=== PATIENT | female | born 1950 ===

== ENCOUNTER 2020-01-04 23:12 | Observation (INO) | payer BC, OTHER ==
[~2020-01-04] VITALS: Ht 160 cm; Wt 72.6 kg
--- OUTSIDE RECORDS SUMMARY | ~2020-01-04 | XMS | Encounter Summary ---
Demographics + + + | Address | [address] | | | [place] [address] | + + + | Home Phone | | + + + | Preferred Language | Unknown | + + + | Marital Status | | + + + | Shinto Affiliation | 1027 | + + + | Race | Unknown | + + + | Ethnic Group | Unknown | + + + Author + + + | Author | [facility] | | | and [place] | + + + | Organization | [facility] | | | and [place] | + + + | Address | Unknown | + + + | Phone | Unavailable | + + + Support + + + + + | Name | Relationship | Address | Phone | + + + + + | Cristofer Vogt | ECON | [address] | | | | | [place], | | | | | [place] [address] | | + + + + + | Ryan Vogt | ECON | Unknown | | + + + + + | Rob Vogt | ECON | Unknown | | + + + + + Care Team Providers + +------+ + | Care Two Needle Machine Operator Name | Role | Phone | + +------+ + | Julisa Samaniego MD | PCP | | + +------+ + Reason for Visit +---------+ + | Reason | Comments | +---------+ + | Fatigue | | +---------+ + Encounter Details +--------+ + + + + | Date | Type | Department | Care Team | Description | +--------+ + + + + | 01/03/ | Emergency | [facility] | Farhat Tripp MD | Adrenal | | 2020 | | [facility] EM[facility] | [address] | insufficiency (HCC) | | | | CENTER [address] | [place], [place] | (Primary Dx); Fever, | | | | [place], [place] | [address] | unspecified fever | | | | [address] | | cause | | | | [phone] | | | +--------+ + + + + Social History + +-------+ +--------+------+ | Tobacco Use | Types | Packs/Day | Years | Date | | | | | Used | | + +-------+ +--------+------+ | Never Smoker | | | | | + +-------+ +--------+------+ + +---+---+---+ | Smokeless Tobacco: | | | | | Never Used | | | | + +---+---+---+ + + +---------+ + | Alcohol Use | Drinks/Week | oz/Week | Comments | + + +---------+ + | No | | | | + + +---------+ + + + + | Sex Assigned at | Date Recorded | | | | + + + | Not on file | | + + + documented as of this encounter Last Filed Vital Signs + + + + + | Vital Sign | Reading | Time Taken | Comments | + + + + + | Blood Pressure | 125/65 | 01/04/2020 10:15 PM | | | | | PDT | | + + + + + | Pulse | 86 | 01/04/2020 10:15 PM | | | | | PDT | | + + + + + | Temperature | 36.9 C (98.4 F) | 01/04/2020 9:35 PM | | | | | PDT | | + + + + + | Respiratory Rate | 20 | 01/04/2020 10:15 PM | | | | | PDT | | + + + + + | Oxygen Saturation | 93% | 01/04/2020 10:15 PM | | | | | PDT | | + + + + + | Inhaled Oxygen | - | - | | | Concentration | | | | + + + + + | Weight | 70.3 kg (155 lb) | 01/04/2020 5:20 PM | | | | | PDT | | + + + + + | Height | 160 cm (5' 3") | 01/04/2020 5:20 PM | | | | | PDT | | + + + + + | Body Mass Index | 27.46 | 01/04/2020 5:20 PM | | | | | PDT | | + + + + + documented in this encounter Medications at Time of Discharge + + + +---------+ + + | Medication | Sig | Dispensed | Refills | Start | End Date | | | | | | Date | | + + + +---------+ + + | amLODIPine | Take 1 tablet by | 90 | 3 | 07/25/19 | | | (NORVASC) 2.5 mg | mouth Daily. | tablet | | 20 | | | tablet | | | | | | + + + +---------+ + + | aspirin (ASPIRIN) | Take 81 mg by mouth | | 0 | | | | 81 MG EC tablet | Daily. | | | | | + + + +---------+ + + | atorvaSTATin | Take 1 tablet by | 90 | 3 | 07/25/19 | | | (LIPITOR) 20 mg | mouth nightly. | tablet | | 20 | | | tablet | | | | | | + + + +---------+ + + | cholecalciferol | Take 1 tablet by | | 0 | 05/30/20 | | | (CHOLECALCIFEROL) | mouth Daily. | | | 18 | | | 1000 units TABS | | | | | | + + + +---------+ + + | levothyroxine | Take 1 tablet by | 90 | 4 | 12/05/19 | | | (SYNTHROID) 100 mcg | mouth every morning | tablet | | 20 | | | tabletIndications: | (before breakfast). | | | | | | Secondary | | | | | | | hypothyroidism | | | | | | + + + +---------+ + + | Multiple | Take 1 tablet by | | 0 | | | | Vitamins-Minerals | mouth Daily. | | | | | | (ONE DAILY | | | | | | | MULTIVITAMIN WOMEN) | | | | | | | TABS | | | | | | + + + +---------+ + + | potassium chloride | take 1 tablet by | 90 | 3 | 09/14/19 | | | (KLOR-CON) 10 mEq | mouth once daily | tablet | | 20 | | | CR tablet | | | | | | + + + +---------+ + + | predniSONE | One daily for total | 90 | 4 | 12/05/19 | | | (DELTASONE) 1 mg | 6 mg daily. | tablet | | 20 | | | tabletIndications: | | | | | | | Secondary adrenal | | | | | | | insufficiency (HCC) | | | | | | + + + +---------+ + + | predniSONE | take 1 tablet by | 120 | 4 | 12/05/19 | | | (DELTASONE) 5 mg | mouth daily MOST | tablet | | 20 | | | tabletIndications: | DAYS INCREASE TO 3 | | | | | | Secondary adrenal | tablets daily for 3 | | | | | | insufficiency (HCC) | days WHEN SICK. | | | | | + + + +---------+ + + | Somatropin | Inject 0.3 mg under | 5 each | 2 | 12/11/19 | | | (OMNITROPE) 5.8 MG | the skin Daily. | | | 20 | | | SOLRIndications: | | | | | | | Panhypopituitarism | | | | | | | (HCC) | | | | | | + + + +---------+ + + documented as of this encounter ED Notes Farhat Tripp MD - 01/04/2020 5:19 PM PDTFormatting of this note might be different from t laverne original. [facility] Emergency Department Encounter Note [address] [place] [id number] PCP:Julisa Samaniego MD [phone] CHIEF COMPLAINT: Chief Complaint Patient presents with Fatigue ED Room: ED02/ED02 [facility] is a 69 y.o. female who presents to the Emergency Department who presents wit h fatigue. She also presents with a fever. Patient reports that she presents similarly whe n she was in adrenal crisis before. At that time she had a fever of 104 was tachycardic and hypotensive. Patient reports that she missed her morning dose of steroids. She is on pred nisone. She denies any chest pain or shortness of breath. No diarrhea constipation. No ra shes. No sore throat. No sick contacts. PAST MEDICAL & SURGICAL HISTORY Past Medical History: Diagnosis Date Adrenal insufficiency (HCC) 05/16/2012 Adverse effect of anesthesia Very slow to wake up Atypical chest pain 01/26/2019 DDD (degenerative disc disease), lumbar Dupuytren's fracture Right fifth finger Dupuytren's without contractures. H/O eclampsia History of eclampsia 1971 with DIC, acute renal failure History of blood transfusion Hyperlipidemia Hyperparathyroidism (HCC) Hypothyroidism Low back pain Osteopenia Osteoporosis Panhypopituitarism (HCC) Postmenopausal Pyelocaliectasis ith a normal IVP in 1989. 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 Tinnitus Past Surgical History: Procedure Laterality Date CARDIAC CATHERIZATION Left 12/26/2018 Procedure: CV LHC; Surgeon: Benigno Deras MD; Location: [facility] CV LAB CHOLECYSTECTOMY COLONOSCOPY 03/12/2014 COLONOSCOPY; Laterality: N/A; Surgeon: Shaji Thornton MD; Location: [facility] MEDICAL PROCEDU RE UNIT CYST REMOVAL Left 1969 ENDOMETRIAL BIOPSY 2006 Benign KNEE ARTHROSCOPY Right 06/02/2019 Procedure: RIGHT KNEE ARTHROSCOPY AND DEBRIDEMENT, partial lateral meniscectomy, partial m edial meniscectomy, medial femoral chondroplasty, and patellar chondroplasty; Surgeon: Vj Watkins MD; Location: [facility] MAIN OR Skull Biopsy 09/28/2011 (Benign) TUBAL LIGATION Bilateral CURRENT MEDICATIONS DIRECTOR OF STUDENT FINANCIAL AID Home Medications Medication Sig amLODIPine (NORVASC) 2.5 mg tablet Take 1 tablet by mouth Daily. aspirin (ASPIRIN) 81 MG EC tablet Take 81 mg by mouth Daily. atorvaSTATin (LIPITOR) 20 mg tablet Take 1 tablet by mouth nightly. cholecalciferol (CHOLECALCIFEROL) 1000 units TABS Take 1 tablet by mouth Daily. levothyroxine (SYNTHROID) 100 mcg tablet Take 1 tablet by mouth every morning (before b reakfast). Multiple Vitamins-Minerals (ONE DAILY MULTIVITAMIN WOMEN) TABS Take 1 tablet by mouth D aily. potassium chloride (KLOR-CON) 10 mEq CR tablet take 1 tablet by mouth once daily predniSONE (DELTASONE) 1 mg tablet One daily for total 6 mg daily. predniSONE (DELTASONE) 5 mg tablet take 1 tablet by mouth daily MOST DAYS INCREASE TO 3 tablets daily for 3 days WHEN SICK. Somatropin (OMNITROPE) 5.8 MG SOLR Inject 0.3 mg under the skin Daily. ALLERGIES Allergies Allergen Reactions Succinylcholine Chloride Other (See Comments) Was told by previous anesthesiologist that she has pseudocholinesterase deficiency and no t to use it again. Does not recall having a dibucaine test. Does not think she was intubated /sedated for a prolonged period after her procedure. FAMILY AND SOCIAL HISTORY Family History Problem Relation Age of Onset High blood pressure Mother 84 of Aortic dissection Other (see comment) Father 74 of hemorrgagic CVA Stroke Father Arthritis Father Lung cancer Maternal Grandfather Abdominal aortic aneurysm Brother Lung cancer Sister Breast cancer Sister Social History Socioeconomic History Marital status: Spouse name: Not on file Number of children: Not on file Years of education: Not on file Highest education level: Not on file Tobacco Use Smoking status: Never Smoker Smokeless tobacco: Never Used Substance and Sexual Activity Alcohol use: No Drug use: No Sexual activity: Never Social History Narrative in 2019 . She works at the [employer]. She doesn't exercise because she is so busy with h er grands. Enjoys doing genealogy. 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 REVIEW OF SYSTEMS As in history of present illness. A 10 system review was otherwise negative. PHYSICAL EXAM VITAL SIGNS: (first vital signs):Temp: (!) 38.6 C (101.4 F) Pulse: 108 Resp: 16 SpO2: 9 5 % BP: 173/75 Body mass index is 27.46 kg/m. Constitutional: female patient, pleasant female no acute distress HEENT: Atraumatic, PERRL, Oropharynx benign. Neck: Supple with full range of motion. Respiratory: Good air movement bilaterally. No wheezes, No, rales. Cardiovascular: Normal S1 S2 Abdomen: Left, nontender, nondistended, no CVA tenderness Extremities: Nontender. Skin: Warm, Dry, No rashes Neurologic: Alert & oriented. No focal deficits., Speech normal, gait not tested Psychiatric: Normal mood, affect and judgement. EKG 12-lead EKG shows LABS Results for orders placed or performed during the hospital encounter of 01/04/20 Coronavirus (COVID-19) NAAT Specimen: Nasopharynx; Tissue Result Value Ref Range SARS-CoV-2, NAAT (COVID-19) Not Detected Not Detected CBC with Differential Result Value Ref Range White Blood Cells 9.8 4.0 - 11.0 K/uL Red Blood Cells 4.66 3.70 - 5.20 M/uL Hemoglobin 14.0 11.5 - 16.0 g/dL Hematocrit 40.5 34.0 - 47.0 % MCV 86.9 83.0 - 101.0 fL MCH 30.0 28.0 - 35.0 pg MCHC 34.6 32.0 - 36.0 g/dL RDW-CV 13.0 <15.0 % RDW-SD 41.0 35.1 - 46.3 fL Platelet Count 244 140 - 440 K/uL MPV 10.1 6.5 - 12.4 fL % Neutrophils 59.5 45.0 - 82.0 % % Lymphocytes 27.4 20.0 - 45.0 % % Monocytes 11.7 4.0 - 12.0 % % Eosinophils 0.9 0.0 - 5.0 % % Basophils 0.4 0.0 - 1.0 % % Immature Granulocytes 0.1 0.0 - 0.4 % Absolute Neutrophils 5.82 1.80 - 8.50 K/uL Absolute Lymphocytes 2.68 0.60 - 3.20 K/uL Absolute Monocytes 1.15 (H) 0.00 - 1.00 K/uL Absolute Eosinophils 0.09 0.00 - 0.40 K/uL Absolute Basophils 0.04 0.00 - 0.10 K/uL Absolute Immature Granulocytes 0.01 0.00 - 0.03 K/uL % nRBC 0 0 - 2 per 100 WBCs Absolute nRBC 0.00 0.00 - 0.01 K/uL Comprehensive Metabolic Panel Result Value Ref Range Na 138 136 - 145 mmol/L K 3.4 3.4 - 5.1 mmol/L Cl 104 98 - 107 mmol/L CO2 24 20 - 31 mmol/L Anion Gap 10 3 - 16 mmol/L Glucose 93 60 - 106 mg/dL BUN 15 9 - 23 mg/dL Creatinine 1.08 (H) 0.55 - 1.02 mg/dL eGFR, non- 50 (L) >=60 mL/min/1.73m2 eGFR, >60 >=60 mL/min/1.73m2 Calcium 9.3 8.7 - 10.4 mg/dL Albumin 3.8 3.2 - 4.8 g/dL Bilirubin Total 0.7 0.3 - 1.2 mg/dL Total Protein 6.1 5.7 - 8.2 g/dL AST 16 0 - 34 U/L ALT 17 10 - 49 U/L Alkaline Phosphatase 132 (H) 46 - 116 U/L Globulin 2.3 2.1 - 3.8 g/dL Albumin/Globulin Ratio 1.7 0.8 - 1.9 BUN/Creatinine Ratio 13.9 Urinalysis with Microscopic with Culture if Indicated Specimen: Urine, Clean Catch Result Value Ref Range Color, Urine Straw Light Yellow, Yellow, Straw Clarity, Urine Clear Clear pH, Urine 6.0 5.0 - 8.0 Specific [place], Urine 1.009 1.001 - 1.030 Protein, Urine Negative Negative Blood, Urine Negative Negative Glucose, Urine Negative Negative Ketones, Urine Negative Negative Bilirubin, Urine Negative Negative Nitrite, Urine Negative Negative Leukocyte Esterase, Urine Trace (A) Negative Urobilinogen, Urine Negative 0.2 mg/dL, 1.0 mg/dL, Negative White Blood Cells, Urine 5-10 (A) 0 - 2 /HPF Red Blood Cells, Urine 0-2 0 - 2 /HPF Squamous Epithelial Cells, Urine 0-2 0 - 2 /LPF Bacteria, Urine 1+ (A) Negative /HPF Mucus, Urine Present (A) Negative /LPF Urine Comment Urine Culture Not Indicated Troponin I Result Value Ref Range Troponin I <0.01 <0.06 ng/mL Lactic Acid Result Value Ref Range Lactate 0.8 0.5 - 2.2 mmol/L Procalcitonin Result Value Ref Range Procalcitonin <0.05 <=0.50 ng/mL Comment Extra Lavender Top Tube Result Value Ref Range Extra Lavender Top Tube Done Extra Blue Top Tube Result Value Ref Range Extra Blue Top Tube Done IMAGING STUDIES (X-Rays interpreted by ED Physician) This x-ray does not show any consolidations or evidence of pneumothorax or pneumo mediastin um ED COURSE & MEDICAL DECISION MAKING Pertinent Labs & Imaging studies were reviewed along with EMS notes and group home record s if applicable. (See chart for details) Medications and Allergy list reviewed. Nurses note and old records were reviewed The patient was seen and examined, Patient is a 69-year-old female who presents with concern for adrenal crisis. Patient was febrile and tachycardic but she was not hypotensive. Sugar was within normal limits. I did perform a sepsis work-up including blood cultures. Patient was febrile got up to 102. I d id give her 50 mg of hydrocortisone. She was received acetaminophen as well. Her symptoms did improve. She continued to feel weak. Given that she is immunocompromise and had a high fever that we best to admit patient. Given lack of bed availability here we contacted [facility] where she was accepted by Dr. Barry. Patient will be transferred there. No acute latrice nges here in the emergency department. Last Set of Vital Signs: Temp: 36.9 C (98.4 F) Pulse: 86 Resp: 20 SpO2: 93 % BP: 125/65 FINAL IMPRESSION ICD-10-CM ICD-9-CM 1. Adrenal insufficiency (HCC) E27.40 255.41 2. Fever, unspecified fever cause R50.9 780.60 Farhat Tripp MD 01/04/203 urner, Naomi Marrero RN - 01/04/2020 5:19 PM PDTPt reports extreme fatigue today. Has no other symptoms. Pt sts he r pituitary doesnt work and when she gets dehydrated this happens to her. Electronically sig lesley by Naomi Cortez, RN at 01/04/2020 5:20 PM PDTdocumented in this encounter Plan of Treatment +--------+---------+ + + + | Date | Type | Specialty | Care Team | Description | +--------+---------+ + + + | 04/29/ | Office | Internal Medicine | Julisa Samaniego MD | | | 2019 | Visit | | [facility] | | | | | | [place] | | | | | | [address] | | | | | | | | +--------+---------+ + + + | 07/25/ | Office | Cardiology | Renetta, | | | 2020 | Visit | | [facility] [address] | | | | | | [place] | | | | | | [place] [address] | | | | | | [phone] | | | | | | | | +--------+---------+ + + + | 09/03/ | Office | Endocrinology | Cheryl Zee MD | | | 2020 | Visit | | [address] | | | | | | [address] [place] | | | | | | [id number] | | | | | | | | +--------+---------+ + + + + + +--------+ + + | Name | Type | Priori | Associated Diagnoses | Date/Time | | | | ty | | | + + +--------+ + + | ED INFORMATION | DAYO | Routin | | 01/04/2020 5:16 PM | | EXCHANGE | | e | | PDT | + + +--------+ + + | Culture, Blood | Microbiolog | STAT | | 01/04/2020 6:04 PM | | | y | | | PDT | + + +--------+ + + | Culture, Blood | Microbiolog | STAT | | 01/04/2020 5:56 PM | | | y | | | PDT | + + +--------+ + + + + +--------+ + + | Name | Type | Priori | Associated Diagnoses | Order Schedule | | | | ty | | | + + +--------+ + + | Culture, Blood | Microbiolog | STAT | | One Time for 1 | | | y | | | Occurrences starting | | | | | | 01/04/2020 until | | | | | | 01/04/2020 | + + +--------+ + + | Culture, Blood | Microbiolog | STAT | | One Time for 1 | | | y | | | Occurrences starting | | | | | | 01/04/2020 until | | | | | | 01/04/2020 | + + +--------+ + + documented as of this encounter Procedures + +--------+ + + + | Procedure Name | Priori | Date/Time | Associated Diagnosis | Comments | | | ty | | | | + +--------+ + + + | URINALYSIS WITH | STAT | 01/04/2020 | | Results for this | | MICROSCOPIC WITH | | 7:31 PM | | procedure are in the | | CULTURE IF INDICATED | | PDT | | results section. | + +--------+ + + + | XR CHEST AP PORTABLE | STAT | 01/04/2020 | | Results for this | | | | 6:50 PM | | procedure are in the | | | | PDT | | results section. | + +--------+ + + + | EXTRA LAVENDER TOP | STAT | 01/04/2020 | | Results for this | | TUBE | | 5:57 PM | | procedure are in the | | | | PDT | | results section. | + +--------+ + + + | EXTRA BLUE TOP TUBE | STAT | 01/04/2020 | | Results for this | | | | 5:57 PM | | procedure are in the | | | | PDT | | results section. | + +--------+ + + + | PROCALCITONIN, SERUM | STAT | 01/04/2020 | | Results for this | | | | 5:56 PM | | procedure are in the | | | | PDT | | results section. | + +--------+ + + + | TROPONIN I | STAT | 01/04/2020 | | Results for this | | | | 5:56 PM | | procedure are in the | | | | PDT | | results section. | + +--------+ + + + | CBC WITH | STAT | 01/04/2020 | | Results for this | | DIFFERENTIAL | | 5:56 PM | | procedure are in the | | | | PDT | | results section. | + +--------+ + + + | COMPREHENSIVE | STAT | 01/04/2020 | | Results for this | | METABOLIC PANEL | | 5:56 PM | | procedure are in the | | | | PDT | | results section. | + +--------+ + + + | LACTIC ACID | STAT | 01/04/2020 | | Results for this | | | | 5:55 PM | | procedure are in the | | | | PDT | | results section. | + +--------+ + + + | CORONAVIRUS | Routin | 01/04/2020 | | Results for this | | (COVID-19) NAAT | e | 5:51 PM | | procedure are in the | | | | PDT | | results section. | + +--------+ + + + | ED INFORMATION | Routin | 01/04/2020 | | | | EXCHANGE | e | 5:16 PM | | | | | | PDT | | | + +--------+ + + + +---+--------+ | | | | | Proced | | | ure | | | Note - | | | Vishnu, | | | Lab In | | | | | | Hlseve | | | n - | | | 01/03/ | | | 2019 | | | 5:17 | | | PM PDT | | | | | | Format | | | ting | | | of | | | this | | | note | | | might | | | be | | | differ | | | ent | | | from | | | the | | | origin | | | al.COL | | | LECTIV | | | E?NOTI | | | FICATI | | | ON?/ | | | | | | 0 | | | 17:15? | | | NIELSO | | | N, | | | MONA | | | L?MRN: | | | | | | [id number] | | | [id number] | | | riteri | | | a Met | | | | | | Histor | | | y of | | | Sepsis | | | | | | DxSecu | | | rity | | | and | | | Safety | | | No | | | recent | | | | | | Securi | | | ty | | | Events | | | | | | curren | | | tly on | | | | | | fileED | | | Care | | | Guidel | | | inesTh | | | ere | | | are | | | curren | | | tly no | | | ED | | | Care | | | Guidel | | | frieda | | | for | | | this | | | patien | | | t. | | | Please | | | check | | | your | | | facili | | | ty's | | | medica | | | l | | | record | | | s | | | system | | | .Flags | | | | | | Histor | | | y of | | | Sepsis | | | - | | | Patien | | | t has | | | receiv | | | ed a | | | diagno | | | sis of | | | | | | Sepsis | | | from | | | an | | | acute | | | or | | | post-a | | | cute | | | settin | | | g. | | | Apply | | | approp | | | riate | | | clinic | | | al | | | planni | | | ng | | | practi | | | kevin; | | | to | | | learn | | | more | | | visit | | | cdc.go | | | v/seps | | | is/cli | | | nicalt | | | ools / | | | | | | Attrib | | | uted | | | By: | | | Collec | | | tive | | | Medica | | | l / | | | Attrib | | | uted | | | On: | | | 01/02/ | | | 2020 | | | Prescr | | | iption | | | Drug | | | Report | | | (12 | | | Mo.)Rx | | | | | | Detail | | | sFill | | | Date | | | Drug | | | Descri | | | ption | | | Qty. | | | Prescr | | | iber | | | CS MED | | | | | | 2019-1 | | | 2-27 | | | HYDROC | | | ODONE- | | | ACETAM | | | IN | | | 7.5-32 | | | 5 30 | | | LEAH | | | GABRIEL | | | 2 0 | | | 2019-1 | | | 0-29 | | | LORAZE | | | CHACE 2 | | | MG | | | TABLET | | | 1 | | | MANUEL | | | D | | | HENDER | | | SON 4 | | | 0 | | | 2019-0 | | | 9-16 | | | LORAZE | | | CHACE 1 | | | MG | | | TABLET | | | 1 | | | MIHAEL | | | A | | | COSMA | | | 4 0 Rx | | | | | | [facility] | | | yMetri | | | c | | | Count | | | CS | | | II-V | | | Rx 3 | | | CS-II | | | Rx 1 | | | Quanti | | | ty | | | Dispen | | | sed 32 | | | | | | Unique | | | | | | Prescr | | | ibers | | | 3 | | | Unique | | | | | | Pharma | | | cies 1 | | | | | | Benzos | | | 2 | | | Opioid | | | s 0 | | | Long | | | Acting | | | | | | Opioid | | | s 0 | | | E.D. | | | Visit | | | Count | | | (12 | | | mo.)Fa | | | cility | | | | | | Visits | | | Low | | | Acuity | | | | | | Provid | | | ence | | | [facility] | | [facility] | [facility] | | | l | | | Center | | | 2 0 | | | Total | | | 2 0 | | | Note: | | | Visits | | | | | | indica | | | te | | | total | | | known | | | visits | | | . | | | Medica | | | id Low | | | | | | Acuity | | | Dx | | | are | | | the | | | number | | | of | | | primar | | | y | | | diagno | | | ses on | | | the | | | Medica | | | id's | | | Low | | | Acuity | | | dx | | | list. | | | | | | Recent | | | | | | Emerge | | | ncy | | | Depart | | | ment | | | Visit | | | [facility] | | | yDate | | | Facili | | | ty | | | City | | | State | | | Type | | | Diagno | | | ses or | | | Chief | | | | | | Compla | | | int | | | Travis | | | 30, | | | 2020 | | | Provid | | | ence | | | [facility] | | [place] | | | [place] | | | Emerge | | | ncy | | | | | | Adrena | | | l | | | Crisis | | | Aug | | | 5, | | | 2019 | | | Provid | | | ence | | | [facility] | [facility] | | [place] | | | [place] | | | Emerge | | | ncy | | | vison | | | | | | change | | | s due | | | to | | | meds | | | | | | Medica | | | l | | | Proble | | | m | | | (Minor | | | ) | | | Advers | | | e | | | effect | | | of | | | unspec | | | ified | | | drugs, | | | | | | medica | | | ments | | | and | | | biolog | | | ic | | | Recent | | | | | | Inpati | | | ent | | | Visit | | | [facility] | | | yNo | | | record | | | ed | | | inpati | | | ent | | | visits | | | . Care | | | | | | TeamPr | | | ovider | | | | | | Specia | | | lty | | | Phone | | | Fax | | | Servic | | | e | | | Dates | | | GARDNE | | | R, JULISA | | | , MD | | | [employer] | | | al | | | Medici | | | ne | | | (509) | | | [phone] | | | [phone] | | | [phone] | | | [phone] | | | [phone] | | | Curren | | | t | | | Collec | | | tive | | | Portal | | | This | | | patien | | | t has | | | regist | | | ered | | | at the | | | | | | Provid | | | ence | | | [facility] | | [facility] | [facility] | | | l | | | Center | | | | | | Emerge | | | ncy | | | Depart | | | ment | | | For | | | more | | | inform | | | ation | | | visit: | | | | | | https: | | | //prov | | | .colle | | | ctivem | | | edical | | | .com/n | | | otify/ | | | [id number] | | | [phone] | | | [email or web address] | | | [phone] | | | [id number] | | | [id number] | | | | | | PLEASE | | | NOTE: | | | 1. | | | Any | | | care | | | recomm | | | endati | | | ons | | | and | | | other | | | clinic | | | al | | | inform | | | ation | | | are | | | provid | | | ed as | | | guidel | | | frieda | | | or for | | | | | | histor | | | ical | | | purpos | | | es | | | only, | | | and | | | provid | | | ers | | | should | | | | | | exerci | | | se | | | their | | | own | | | clinic | | | al | | | judgme | | | nt | | | when | | | provid | | | ing | | | care. | | | 2. | | | You | | | may | | | only | | | use | | | this | | | inform | | | ation | | | for | | | purpos | | | es of | | | treatm | | | ent, | | | paymen | | | t or | | | health | | | care | | | operat | | | ions | | | activi | | | ties, | | | and | | | subjec | | | t to | | | the | | | limita | | | tions | | | of | | | applic | | | able | | | Collec | | | tive | | | Polici | | | es. | | | 3. | | | You | | | should | | | | | | consul | | | t | | | direct | | | ly | | | with | | | the | | | organi | | | zation | | | that | | | provid | | | ed a | | | care | | | guidel | | | ine or | | | other | | | | | | clinic | | | al | | | histor | | | y with | | | any | | | questi | | | ons | | | about | | | additi | | | onal | | | inform | | | ation | | | or | | | accura | | | cy or | | | comple | | | teness | | | of | | | inform | | | ation | | | provid | | | ed.? | | | 2019 | | | Collec | | | tive | | | Medica | | | l | | | Techno | | | logies | | | , Inc[employer] | | | - | | | [email or web address] | | | llecti | | | vemedi | | | [email or web address] | | | m | +---+--------+ documented in this encounter Results Urinalysis with Microscopic with Culture if Indicated (01/04/2020 7:31 PM PDT) + + + + + + | Component | Value | Ref Range | Performed | Pathologist | | | | | At | Signature | + + + + + + | Color, | Straw | Light Yellow, | [facility] | | | Urine | | Yellow, Straw | [facility] | | | | | | MED[facility] | | | | | | C[facility] - | | | | | | LABORATORY | | + + + + + + | Clarity, | Clear | Clear | [facility] | | | Urine | | | [facility] | | | | | | MEDICAL | | | | | | CENTER - | | | | | | LABORATORY | | + + + + + + | pH, Urine | 6.0 | 5.0 - 8.0 | [facility] | | | | | | [facility] | | | | | | MEDICAL | | | | | | CENTER - | | | | | | LABORATORY | | + + + + + + | Specific | 1.009 | 1.001 - 1.030 | [facility] | | | [place], | | | [facility] | | | Urine | | | MEDICAL | | | | | | CENTER - | | | | | | LABORATORY | | + + + + + + | Protein, | Negative | Negative | [facility] | | | Urine | | | [facility] | | | | | | MEDICAL | | | | | | CENTER - | | | | | | LABORATORY | | + + + + + + | Blood, | Negative | Negative | [facility] | | | Urine | | | [facility] | | | | | | MEDICAL | | | | | | CENTER - | | | | | | LABORATORY | | + + + + + + | Glucose, | Negative | Negative | [facility] | | | Urine | | | [facility] | | | | | | MEDICAL | | | | | | CENTER - | | | | | | LABORATORY | | + + + + + + | Ketones, | Negative | Negative | [facility] | | | Urine | | | [facility] | | | | | | MEDICAL | | | | | | CENTER - | | | | | | LABORATORY | | + + + + + + | Bilirubin, | Negative | Negative | [facility] | | | Urine | | | [facility] | | | | | | MEDICAL | | | | | | CENTER - | | | | | | LABORATORY | | + + + + + + | Nitrite, | Negative | Negative | [facility] | | | Urine | | | [facility] | | | | | | MEDICAL | | | | | | CENTER - | | | | | | LABORATORY | | + + + + + + | Leukocyte | Trace (A) | Negative | [facility] | | | Esterase, | | | [facility] | | | Urine | | | MEDICAL | | | | | | CENTER - | | | | | | LABORATORY | | + + + + + + | Urobilinoge | Negative | 0.2 mg/dL, 1.0 | [facility] | | | n, Urine | | mg/dL, Negative | [facility] | | | | | | MEDICAL | | | | | | CENTER - | | | | | | LABORATORY | | + + + + + + | White Blood | 5-10 (A) | 0 - 2 /HPF | [facility] | | | Cells, | | | [facility] | | | Urine | | | MEDICAL | | | | | | CENTER - | | | | | | LABORATORY | | + + + + + + | Red Blood | 0-2 | 0 - 2 /HPF | [facility] | | | Cells, | | | [facility] | | | Urine | | | MEDICAL | | | | | | CENTER - | | | | | | LABORATORY | | + + + + + + | Squamous | 0-2 | 0 - 2 /LPF | [facility] | | | Epithelial | | | [facility] | | | Cells, | | | MEDICAL | | | Urine | | | CENTER - | | | | | | LABORATORY | | + + + + + + | Bacteria, | 1+ (A) | Negative /HPF | [facility] | | | Urine | | | [facility] | | | | | | MEDICAL | | | | | | CENTER - | | | | | | LABORATORY | | + + + + + + | Mucus, | Present (A) | Negative /LPF | [facility] | | | Urine | | | [facility] | | | | | | MEDICAL | | | | | | CENTER - | | | | | | LABORATORY | | + + + + + + | Urine | Urine Culture Not | | [facility] | | | Comment | Indicated | | [facility] | | | | | | MEDICAL | | | | | | CENTER - | | | | | | LABORATORY | | + + + + + + + + | Specimen | + + | Urine - Urine | | specimen obtained by | | clean catch | | procedure (specimen) | + + + + + + + | Performing | Address | City/State/Zipcode | Phone Number | | Organization | | | | + + + + + | [facility] | [address] | [place], [place] | [phone] | | [facility] | | [address] | | | - LABORATORY | | | | + + + + + XR Chest AP Portable (01/04/2020 6:50 PM PDT) + + | Specimen | + + | | + + + + + | Impressions | Performed At | + + + | 1. LOW LUNG VOLUMES WITHOUT RADIOGRAPHIC EVIDENCE OF ACTIVE | [facility] | | DISEASE IN THE CHEST. Electronically signed by Gonzalo Barragan MD | | | 01/04/2020 10:47 PM | | + + + + + + | Narrative | Performed At | + + + | SINGLE AP CHEST 01/04/2020 6:50 PM CLINICAL HISTORY: [facility] | [facility] | | COMPARISON: Radiography November 2018 and more remote imaging | | | FINDINGS: The cardiomediastinal silhouette and pulmonary vasculature | | | are unremarkable. Allowing for low lung volumes, the lungs appear | | | clear without visible pneumothorax or pleural effusion. Bones and soft | | | tissues are unremarkable. | | + + + + + | Procedure Note | + + | Vishnu, [id number] - 01/04/2020 10:50 PM PDT SINGLE AP CHEST 01/04/2020 6:50 PM | | | | CLINICAL HISTORY: [facility] | | | | COMPARISON: Radiography November 2018 and more remote imaging | | | | FINDINGS: The cardiomediastinal silhouette and pulmonary vasculature | | are unremarkable. Allowing for low lung volumes, the lungs appear | | clear without visible pneumothorax or pleural effusion. Bones and soft | | tissues are unremarkable. | | | | IMPRESSION: | | | | 1. LOW LUNG VOLUMES WITHOUT RADIOGRAPHIC EVIDENCE OF ACTIVE DISEASE | | IN THE CHEST. | | | | Electronically signed by Gonzalo Barragan MD 01/04/2020 10:47 PM | + + + +---------+ + + | Performing | Address | City/State/Zipcode | Phone Number | | Organization | | | | + +---------+ + + | [facility] | | | | + +---------+ + + Extra Blue Top Tube (01/04/2020 5:57 PM PDT) + +-------+ + + + | Component | Value | Ref Range | Performed | Pathologist | | | | | At | Signature | + +-------+ + + + | Extra Blue | Done | | [facility] | | | Top Tube | | | [facility] | | | | | | MEDICAL | | | | | | CENTER - | | | | | | LABORATORY | | + +-------+ + + + + + | Specimen | + + | Blood | + + + + + + + | Performing | Address | City/State/Zipcode | Phone Number | | Organization | | | | + + + + + | [facility] | [address] | [place], [place] | [phone] | | [facility] | | [address] | | | - LABORATORY | | | | + + + + + Extra Lavender Top Tube (01/04/2020 5:57 PM PDT) + +-------+ + + + | Component | Value | Ref Range | Performed | Pathologist | | | | | At | Signature | + +-------+ + + + | Extra | Done | | [facility] | | | Lavender | | | [facility] | | | Top Tube | | | MEDICAL | | | | | | CENTER - | | | | | | LABORATORY | | + +-------+ + + + + + | Specimen | + + | Blood | + + + + + + + | Performing | Address | City/State/Zipcode | Phone Number | | Organization | | | | + + + + + | [facility] | [address] | [place] | [phone] | | [facility] | | [address] | | | - LABORATORY | | | | + + + + + Procalcitonin (01/04/2020 5:56 PM PDT) + + + + + + | Component | Value | Ref Range | Performed | Pathologist | | | | | At | Signature | + + + + + + | Procalciton | <0.05 | <=0.50 ng/mL | [facility] | | | in | | | [facility] | | | | | | MEDICAL | | | | | | CENTER - | | | | | | LABORATORY | | + + + + + + | Comment | Comment: < 0.50 | | [facility] | | | | ng/mL:Procalcitonin | | [facility] | | | | levels below 0.50 ng/mL | | MEDICAL | | | | on the first day of | | CENTER - | | | | admission represents a | | LABORATORY | | | | low risk for progression | | | | | | to severe sepsis and/or | | | | | | septic shock, however | | | | | | these do not exclude an | | | | | | infection, because | | | | | | localized infections | | | | | | (without systemic signs) | | | | | | may also be associated | | | | | | with such low levels. | | | | | | > 2.00 | | | | | | ng/mL:Procalcitonin | | | | | | levels above 2.00 ng/mL | | | | | | on the first day of | | | | | | admission represents a | | | | | | high risk for | | | | | | progression to severe | | | | | | sepsis and/or septic | | | | | | shock. If the | | | | | | procalcitonin | | | | | | measurement is performed | | | | | | shortly after the | | | | | | systemic infection | | | | | | process has started | | | | | | (usually less than 6 | | | | | | hours), these values may | | | | | | still be low. As | | | | | | various non-infectious | | | | | | conditions are known to | | | | | | induce procalcitonin as | | | | | | well, procalcitonin | | | | | | levels between 0.50 | | | | | | ng/mL and 2.00 ng/mL | | | | | | should be reviewed | | | | | | carefully to take into | | | | | | account the specific | | | | | | clinical background and | | | | | | condition(s) of the | | | | | | individual patient. | | | | + + + + + + + + | Specimen | + + | Blood | + + + + + + + | Performing | Address | City/State/Zipcode | Phone Number | | Organization | | | | + + + + + | [facility] | [address] | [place] | [phone] | | [facility] | | [address] | | | - LABORATORY | | | | + + + + + Troponin I (01/04/2020 5:56 PM PDT) + + + + + + | Component | Value | Ref Range | Performed | Pathologist | | | | | At | Signature | + + + + + + | Troponin I | <0.01Comment: | <0.06 ng/mL | [facility] | | | | Comment:Reference | | [facility] | | | | Ranges: 0.00-0.06 = | | MEDICAL | | | | NORMAL >0.06 = | | CENTER - | | | | SUSPICIOUS FOR | | LABORATORY | | | | MYOCARDIAL DAMAGE NOTE: | | | | | | Values greater than | | | | | | 0.78 ng/mL have been | | | | | | shown to be strongly | | | | | | associated with acute | | | | | | myocardial infarction. | | | | | | The [employer] | | | | | | Card[employer] (ACC) | | | | | | recommends a decision | | | | | | limit of 0.06 ng/mL for | | | | | | this assay. Results | | | | | | greater than 0.06 can | | | | | | reflect a pre-infarct | | | | | | acute coronary syndrome, | | | | | | but can also reflect | | | | | | myocardial necrosis or | | | | | | injury that is not due | | | | | | to coronary artery | | | | | | disease. Some of these | | | | | | causes are sepsis, | | | | | | hypocolemia, atrial | | | | | | fibrillation, heart | | | | | | failure, pulmonary | | | | | | embolism, myocarditis, | | | | | | myocardial contusion, | | | | | | and renal failure. The | | | | | | diagnosis of myocardial | | | | | | infarction should be | | | | | | based on a combination | | | | | | of the patient's | | | | | | clinical presentation | | | | | | and the clinical | | | | | | laboratory test results | | | | | | (especially serial | | | | | | troponin levels). | | | | + + + + + + + + | Specimen | + + | Blood | + + + + + + + | Performing | Address | City/State/Zipcode | Phone Number | | Organization | | | | + + + + + | [facility] | [address] | [place] | [phone] | | [facility] | | [address] | | | - LABORATORY | | | | + + + + + Comprehensive Metabolic Panel (01/04/2020 5:56 PM PDT) + + + + + + | Component | Value | Ref Range | Performed | Pathologist | | | | | At | Signature | + + + + + + | Na | 138 | 136 - 145 | [facility] | | | | | mmol/L | [facility] | | | | | | MEDICAL | | | | | | CENTER - | | | | | | LABORATORY | | + + + + + + | K | 3.4 | 3.4 - 5.1 | [facility] | | | | | mmol/L | [facility] | | | | | | MEDICAL | | | | | | CENTER - | | | | | | LABORATORY | | + + + + + + | Cl | 104 | 98 - 107 mmol/L | [facility] | | | | | | [facility] | | | | | | MEDICAL | | | | | | CENTER - | | | | | | LABORATORY | | + + + + + + | CO2 | 24 | 20 - 31 mmol/L | [facility] | | | | | | [facility] | | | | | | MEDICAL | | | | | | CENTER - | | | | | | LABORATORY | | + + + + + + | Anion Gap | 10 | 3 - 16 mmol/L | [facility] | | | | | | [facility] | | | | | | MEDICAL | | | | | | CENTER - | | | | | | LABORATORY | | + + + + + + | Glucose | 93 | 60 - 106 mg/dL | [facility] | | | | | | [facility] | | | | | | MEDICAL | | | | | | CENTER - | | | | | | LABORATORY | | + + + + + + | BUN | 15 | 9 - 23 mg/dL | [facility] | | | | | | [facility] | | | | | | MEDICAL | | | | | | CENTER - | | | | | | LABORATORY | | + + + + + + | Creatinine | 1.08 (H) | 0.55 - 1.02 | [facility] | | | | | mg/dL | [facility] | | | | | | MEDICAL | | | | | | CENTER - | | | | | | LABORATORY | | + + + + + + | eGFR, | 50 (L)Comment: | >=60 | [facility] | | | non- | GLOMERULAR FILTRATION | mL/min/1.73m2 | [facility] | | | [place] | RATE,ESTIMATED | | MEDICAL | | | | mL/min/1.60o7Zbsh than | | CENTER - | | | | 60 Chronic kidney | | LABORATORY | | | | disease,if found over a | | | | | | 3-month period.Less than | | | | | | 15 Kidney failure | | | | + + + + + + | eGFR, | >60Comment: GLOMERULAR | >=60 | [facility] | | | | FILTRATION | mL/min/1.73m2 | [facility] | | | [place] | RATE,ESTIMATED | | MEDICAL | | | | mL/min/1.12i7Tjvt than | | CENTER - | | | | 60 Chronic kidney | | LABORATORY | | | | disease,if found over a | | | | | | 3-month period.Less than | | | | | | 15 Kidney failure | | | | + + + + + + | Calcium | 9.3 | 8.7 - 10.4 | [facility] | | | | | mg/dL | [facility] | | | | | | MEDICAL | | | | | | CENTER - | | | | | | LABORATORY | | + + + + + + | Albumin | 3.8 | 3.2 - 4.8 g/dL | [facility] | | | | | | [facility] | | | | | | MEDICAL | | | | | | CENTER - | | | | | | LABORATORY | | + + + + + + | Bilirubin | 0.7 | 0.3 - 1.2 mg/dL | [facility] | | | Total | | | [facility] | | | | | | MEDICAL | | | | | | CENTER - | | | | | | LABORATORY | | + + + + + + | Total | 6.1 | 5.7 - 8.2 g/dL | [facility] | | | Protein | | | [facility] | | | | | | MEDICAL | | | | | | CENTER - | | | | | | LABORATORY | | + + + + + + | AST | 16 | 0 - 34 U/L | [facility] | | | | | | [facility] | | | | | | MEDICAL | | | | | | CENTER - | | | | | | LABORATORY | | + + + + + + | ALT | 17 | 10 - 49 U/L | [facility] | | | | | | [facility] | | | | | | MEDICAL | | | | | | CENTER - | | | | | | LABORATORY | | + + + + + + | Alkaline | 132 (H) | 46 - 116 U/L | [facility] | | | Phosphatase | | | [facility] | | | | | | MEDICAL | | | | | | CENTER - | | | | | | LABORATORY | | + + + + + + | Globulin | 2.3 | 2.1 - 3.8 g/dL | [facility] | | | | | | [facility] | | | | | | MEDICAL | | | | | | CENTER - | | | | | | LABORATORY | | + + + + + + | Albumin/Rachel | 1.7 | 0.8 - 1.9 | [facility] | | | bulin Ratio | | | [facility] | | | | | | MEDICAL | | | | | | CENTER - | | | | | | LABORATORY | | + + + + + + | BUN/Creatin | 13.9 | | [facility] | | | ine Ratio | | | [facility] | | | | | | MEDICAL | | | | | | CENTER - | | | | | | LABORATORY | | + + + + + + + + | Specimen | + + | Blood | + + + + + + + | Performing | Address | City/State/Zipcode | Phone Number | | Organization | | | | + + + + + | [facility] | [address] | [place] | [phone] | | [facility] | | [address] | | | - LABORATORY | | | | + + + + + CBC with Differential (01/04/2020 5:56 PM PDT) + + + + + + | Component | Value | Ref Range | Performed | Pathologist | | | | | At | Signature | + + + + + + | White Blood | 9.8 | 4.0 - 11.0 K/uL | [facility] | | | Cells | | | [facility] | | | | | | MEDICAL | | | | | | CENTER - | | | | | | LABORATORY | | + + + + + + | Red Blood | 4.66 | 3.70 - 5.20 | [facility] | | | Cells | | M/uL | [facility] | | | | | | MEDICAL | | | | | | CENTER - | | | | | | LABORATORY | | + + + + + + | Hemoglobin | 14.0 | 11.5 - 16.0 | [facility] | | | | | g/dL | [facility] | | | | | | MEDICAL | | | | | | CENTER - | | | | | | LABORATORY | | + + + + + + | Hematocrit | 40.5 | 34.0 - 47.0 % | [facility] | | | | | | [facility] | | | | | | MEDICAL | | | | | | CENTER - | | | | | | LABORATORY | | + + + + + + | MCV | 86.9 | 83.0 - 101.0 fL | [facility] | | | | | | [facility] | | | | | | MEDICAL | | | | | | CENTER - | | | | | | LABORATORY | | + + + + + + | MCH | 30.0 | 28.0 - 35.0 pg | [facility] | | | | | | [facility] | | | | | | MEDICAL | | | | | | CENTER - | | | | | | LABORATORY | | + + + + + + | MCHC | 34.6 | 32.0 - 36.0 | [facility] | | | | | g/dL | [facility] | | | | | | MEDICAL | | | | | | CENTER - | | | | | | LABORATORY | | + + + + + + | RDW-CV | 13.0 | <15.0 % | [facility] | | | | | | [facility] | | | | | | MEDICAL | | | | | | CENTER - | | | | | | LABORATORY | | + + + + + + | RDW-SD | 41.0 | 35.1 - 46.3 fL | [facility] | | | | | | [facility] | | | | | | MEDICAL | | | | | | CENTER - | | | | | | LABORATORY | | + + + + + + | Platelet | 244 | 140 - 440 K/uL | [facility] | | | Count | | | [facility] | | | | | | MEDICAL | | | | | | CENTER - | | | | | | LABORATORY | | + + + + + + | MPV | 10.1 | 6.5 - 12.4 fL | [facility] | | | | | | [facility] | | | | | | MEDICAL | | | | | | CENTER - | | | | | | LABORATORY | | + + + + + + | % | 59.5 | 45.0 - 82.0 % | [facility] | | | Neutrophils | | | [facility] | | | | | | MEDICAL | | | | | | CENTER - | | | | | | LABORATORY | | + + + + + + | % | 27.4 | 20.0 - 45.0 % | [facility] | | | Lymphocytes | | | [facility] | | | | | | MEDICAL | | | | | | CENTER - | | | | | | LABORATORY | | + + + + + + | % Monocytes | 11.7 | 4.0 - 12.0 % | [facility] | | | | | | [facility] | | | | | | MEDICAL | | | | | | CENTER - | | | | | | LABORATORY | | + + + + + + | % | 0.9 | 0.0 - 5.0 % | [facility] | | | Eosinophils | | | [facility] | | | | | | MEDICAL | | | | | | CENTER - | | | | | | LABORATORY | | + + + + + + | % Basophils | 0.4 | 0.0 - 1.0 % | [facility] | | | | | | [facility] | | | | | | MEDICAL | | | | | | CENTER - | | | | | | LABORATORY | | + + + + + + | % Immature | 0.1 | 0.0 - 0.4 % | [facility] | | | Granulocyte | | | [facility] | | | s | | | MEDICAL | | | | | | CENTER - | | | | | | LABORATORY | | + + + + + + | Absolute | 5.82 | 1.80 - 8.50 | [facility] | | | Neutrophils | | K/uL | [facility] | | | | | | MEDICAL | | | | | | CENTER - | | | | | | LABORATORY | | + + + + + + | Absolute | 2.68 | 0.60 - 3.20 | [facility] | | | Lymphocytes | | K/uL | [facility] | | | | | | MEDICAL | | | | | | CENTER - | | | | | | LABORATORY | | + + + + + + | Absolute | 1.15 (H) | 0.00 - 1.00 | [facility] | | | Monocytes | | K/uL | [facility] | | | | | | MEDICAL | | | | | | CENTER - | | | | | | LABORATORY | | + + + + + + | Absolute | 0.09 | 0.00 - 0.40 | [facility] | | | Eosinophils | | K/uL | [facility] | | | | | | MEDICAL | | | | | | CENTER - | | | | | | LABORATORY | | + + + + + + | Absolute | 0.04 | 0.00 - 0.10 | [facility] | | | Basophils | | K/uL | [facility] | | | | | | MEDICAL | | | | | | CENTER - | | | | | | LABORATORY | | + + + + + + | Absolute | 0.01 | 0.00 - 0.03 | [facility] | | | Immature | | K/uL | [facility] | | | Granulocyte | | | MEDICAL | | | s | | | CENTER - | | | | | | LABORATORY | | + + + + + + | % nRBC | 0 | 0 - 2 per 100 | [facility] | | | | | WBCs | [facility] | | | | | | MEDICAL | | | | | | CENTER - | | | | | | LABORATORY | | + + + + + + | Absolute | 0.00 | 0.00 - 0.01 | [facility] | | | nRBC | | K/uL | [facility] | | | | | | MEDICAL | | | | | | CENTER - | | | | | | LABORATORY | | + + + + + + + + | Specimen | + + | Blood | + + + + + + + | Performing | Address | City/State/Zipcode | Phone Number | | Organization | | | | + + + + + | [facility] | [address] | [place] | [phone] | | [facility] | | [address] | | | - LABORATORY | | | | + + + + + Lactic Acid (01/04/2020 5:55 PM PDT) + +-------+ + + + | Component | Value | Ref Range | Performed | Pathologist | | | | | At | Signature | + +-------+ + + + | Lactate | 0.8 | 0.5 - 2.2 | [facility] | | | | | mmol/L | [facility] | | | | | | MEDICAL | | | | | | CENTER - | | | | | | LABORATORY | | + +-------+ + + + + + | Specimen | + + | Blood | + + + + + + + | Performing | Address | City/State/Zipcode | Phone Number | | Organization | | | | + + + + + | [facility] | [address] | [place] | [phone] | | [facility] | | [address] | | | - LABORATORY | | | | + + + + + Coronavirus (COVID-19) [facility] (01/04/2020 5:51 PM PDT) + + + + + + | Component | Value | Ref Range | Performed | Pathologist | | | | | At | Signature | + + + + + + | SARS-CoV-2, | Not DetectedComment: | Not Detected | [facility] | | | [facility] | SARS-CoV-2, [facility] | | [facility] | | | (COVID-19) | (COVID-19) [facility] This | | MEDICAL | | | | assay has been cleared | | CENTER - | | | | for use under an FDA | | LABORATORY | | | | Emergency Use | | | | | | Authorization. This test | | | | | | is used for clinical | | | | | | purposes. It should not | | | | | | be regarded as | | | | | | investigational or for | | | | | | research. This | | | | | | laboratory is certified | | | | | | under the Clinical | | | | | | Laboratory Improvement | | | | | | Amendments (CLIA) as | | | | | | qualified to perform | | | | | | high complexity clinical | | | | | | laboratory testing. | | | | | | These results are not | | | | | | intended to be used as | | | | | | the sole means for | | | | | | clinical diagnosis or | | | | | | patient management | | | | | | decisions. This test | | | | | | has been validated in | | | | | | accordance with the | | | | | | FDA's Guidance Document | | | | | | "Policy for Diagnostics | | | | | | Testing in Laboratories | | | | | | Certified to Perform | | | | | | High Complexity Testing | | | | | | under CLIA prior to | | | | | | Emergency Use | | | | | | Authorization for | | | | | | Coronavirus Disease-2019 | | | | | | during the Public | | | | | | Health Emergency" issued | | | | | | on August 05, 2019. | | | | | | FDA independent review | | | | | | of this validation is | | | | | | pending. This test is | | | | | | only authorized for the | | | | | | duration of time the | | | | | | declaration that | | | | | | circumstances exist | | | | | | justifying the | | | | | | authorization of the | | | | | | emergency use of in | | | | | | vitro diagnostic tests | | | | | | for detection of | | | | | | SARS-CoV-2 virus and/or | | | | | | diagnosis of COVID-19 | | | | | | infection under section | | | | | | 564(b)(1) of the Act, 21 | | | | | | U.S.C. 360bbb-3(b)(1), | | | | | | unless the authorization | | | | | | is terminated or | | | | | | revoked sooner. | | | | + + + + + + + + | Specimen | + + | Tissue - Entire | | nasopharynx (body | | structure) | + + + + + + + | Performing | Address | City/State/Zipcode | Phone Number | | Organization | | | | + + + + + | [facility] | [address] | [place] | [phone] | | [facility] | | [address] | | | - LABORATORY | | | | + + + + + documented in this encounter Visit Diagnoses + + | Diagnosis | + + | Adrenal insufficiency (HCC) - Primary Glucocorticoid deficiency | + + | Fever, unspecified fever cause | + + documented in this encounter Administered Medications + +--------+ + +------+------+ | Medication Order | MAR | Action | Dose | Rate | Site | | | Action | Date | | | | + +--------+ + +------+------+ | acetaminophen (TYLENOL) tablet | Given | 01/04/20 | 1,000 mg | | | | 1,000 mg 1,000 mg, Oral, ONCE, | | 20 7:29 | | | | | Davida 01/04/20 at 1925, For 1 dose | | PM PDT | | | | + +--------+ + +------+------+ +---+---+ | | | +---+---+ + +---------+ +-----+-------+---+ | cefTRIAXone (ROCEPHIN) 1 g in | New Bag | 01/04/20 | 1 g | 100 | | | sodium chloride 0.9% 50 mL IVPB | | 20 9:34 | | mL/hr | | | 1 g, Intravenous, Administer over | | PM PDT | | | | | 30 Minutes, ONCE, Davida 01/04/20 at | | | | | | | 2035, For 1 dose, Activate | | | | | | | system and mix before use., | | | | | | | Indications: Pneumonia | | | | | | + +---------+ +-----+-------+---+ +---+---+ | | | +---+---+ + +-------+ +-------+---+---+ | hydrocortisone (PF) | Given | 01/04/20 | 50 mg | | | | (solu-CORTEF) injection 50 mg 50 | | 20 6:06 | | | | | mg, Intravenous, ONCE, Davida | | PM PDT | | | | | 01/04/20 at 1745, For 1 dose, Mix | | | | | | | with 2 mL sterile water to make | | | | | | | 50 mg/mL., | | | | | | + +-------+ +-------+---+---+ +---+---+ | | | +---+---+ + +---------+ +--------+-------+---+ | sodium chloride 0.9% (NS) bolus | New Bag | 01/04/20 | 1,000 | 2000 | | | 1,000 mL 1,000 mL, Intravenous, | | 20 6:06 | mLs | mL/hr | | | Administer over 30 Minutes, | | PM PDT | | | | | ONCE, Davida 01/04/20 at 1725, For 1 | | | | | | | dose | | | | | | + +---------+ +--------+-------+---+ +---+---+ | | | +---+---+ documented in this encounter Additional Health Concerns + + + + + | Infection | Onset Date | Last Indicated | Resolved Time | + + + + + | Rule out COVID-19 | 01/04/2020 | 01/04/2020 | 01/04/2020 7:37 PM | | | | | PDT | + + + + + documented as of this encounter
--- OUTSIDE RECORDS SUMMARY | ~2020-01-04 | XMS | Encounter Summary ---
Demographics + + + | Address | [address] | | | [place] [address] | + + + | Home Phone | | + + + | Preferred Language | Unknown | + + + | Marital Status | | + + + | Druze Affiliation | 1027 | + + + | Race | Unknown | + + + | Ethnic Group | Unknown | + + + Author + + + | Author | [facility] | | | and [place] | + + + | Organization | [facility] | | | [...] [place], | | | | | [place] [address] | | + + + + + | Ryan Vogt | ECON | Unknown | | + + + + + | Rob Vogt | ECON | Unknown | | + + + + + Care Team Providers + +------+ + | Care Endocrinology Teacher Name | Role | Phone | + +------+ + | Abrahan Samaniego MD | PCP | | + +------+ + Encounter Details +--------+ + + + + | Date | Type | Department | Care Team | Description | +--------+ + + + + | 03/22/ | Hospital | [facility] | Abrahan Samaniego MD | AAA family hx | | 2013 | Encounter | MED CTR ULTRASOUND | [address] [facility] | | | | | [address] [place] | [place] | | | | | [place] | [address] | | | | | [address] | | | | | | [phone] | Matias Connelly | | | | | | Jr. Technologist | | +--------+ + + + + [...] + + documented as of this encounter Medications at Time of Discharge + + + +---------+ + + | Medication | Sig | Dispensed | Refills | Start | End Date | | | | | | Date | | + + + +---------+ + + | Calcium | Take by mouth | | 0 | 02/18/20 | | | Carbonate-Vitamin D | Daily. | | | 12 | 6 | | 600-125 MG-UNIT TABS | | | | | | + + + +---------+ + + | cholecalciferol | Take 1,000 Units by | | 0 | 02/18/20 | | | (VITAMIN D-3) 1,000 | mouth Daily. | | | 12 | 8 | | units tablet | | | | | | + + + +---------+ + + | levothyroxine | Take 100 mcg by | | 0 | | | | (SYNTHROID, | mouth every morning | | | | 6 | | LEVOTHROID) 100 mcg | (before breakfast). | | | | | | tablet | | | | | | + + + +---------+ + + | predniSONE | Take 1 tablet by | 90 | 3 | 01/03/20 | | | (DELTASONE) 5 mg | mouth daily with one | tablet | | 14 | 5 | | tablet | 1 mg tab (total 6mg | | | | | | | by mouth daily ) | | | | | + + + +---------+ + + documented as of this encounter Plan of Treatment +--------+---------+ + + + | Date | Type | Specialty | Care Team | Description | +--------+---------+ + + + | 04/29/ | Office | Internal Medicine | Abrahan Samaniego MD | | | 2020 | Visit | | [address] [facility] | | | | | | [place] | | | | | | [address] | | | | | | | | +--------+---------+ + + + | 07/25/ | Office | Cardiology | Renetta, | | | 2020 | Visit | | [facility] [address] | | | | | | [address] [place] [place], | | | | | | [place] [address] | | | | | | [phone] | | | | | | | | +--------+---------+ + + + | 09/03/ | Office | Endocrinology | Cheryl Zee MD | | | 2020 | Visit | | [address] | | | | | | [address] [place] | | | | | | [phone] | | | | | | | | +--------+---------+ + + + documented as of this encounter Procedures + +--------+ + + + | Procedure Name | Priori | Date/Time | Associated Diagnosis | Comments | | | ty | | | | + +--------+ + + + | US AORTA LIMITED | Routin | 03/22/2014 | AAA family hx | Results for this | | | e | 11:32 AM | | procedure are in the | | | | PDT | | results section. | + +--------+ + + + documented in this encounter Results US Aorta Limited (03/22/2014 11:32 AM PDT) + + | Specimen | + + | | + + + + + | Narrative | Performed At | + + + | US AORTA LIMITED 03/22/2014 9:03 AM HISTORY: FAMILY HISTORY [facility] | MISCELANIOUS | | AND PATIENT REQUEST. COMPARISON: None. PROTOCOL: Kidd scale | LAB | | and Doppler images of the abdominal aorta. FINDINGS: The proximal | | | abdominal aorta measures 2.48 x 2.42 cm (AP, transverse). The mid | | | abdominal aorta is 1.30 x 1.22 cm. The distal abdominal aorta measures | | | 1.49 x 1.56 cm. The right common iliac artery is 1.26 x 1.02 cm. | | | The left common iliac artery measures 1.05 x 1.04 cm. IMPRESSION | | | - No evidence for abdominal aortic aneurysm. Dictated and Signed | | | by: Luke Lanza MD Electronically signed: 03/22/2014 10:28 AM | | + + + + + | Procedure Note | + + | Cyrus Mares Results In - 03/22/2014 11:32 AM PDT US AORTA LIMITED 03/22/2014 9:03 AM | | | | HISTORY: FAMILY HISTORY [facility] AND PATIENT REQUEST. | | | | COMPARISON: None. | | | | PROTOCOL: Kidd scale and Doppler images of the abdominal aorta. | | | | FINDINGS: | | The proximal abdominal aorta measures 2.48 x 2.42 cm (AP, transverse). The mid | | abdominal aorta is 1.30 x 1.22 cm. The distal abdominal aorta measures 1.49 x | | 1.56 cm. | | | | The right common iliac artery is 1.26 x 1.02 cm. The left common iliac artery | | measures 1.05 x 1.04 cm. | | | | IMPRESSION - | | No evidence for abdominal aortic aneurysm. | | | | Dictated and Signed by: Luke Lanza MD | | Electronically signed: 03/22/2014 10:28 AM | + + + +---------+ + + | Performing | Address | City/State/Zipcode | Phone Number | | Organization | | | | + +---------+ + + | [facility] | | | [phone] | + +---------+ + + | MISCEL[facility] LAB | | | [phone] | + +---------+ + + documented in this encounter Visit Diagnoses + + | Diagnosis | + + | AAA family hx Family history of other cardiovascular diseases | + + documented in this encounter"
--- OUTSIDE RECORDS SUMMARY | ~2020-01-04 | XMS | Encounter Summary ---
Demographics + + + | Address | [address] | | | [place] [address] | + + + | Home Phone | | + + + | Preferred Language | Unknown | + + + | Marital Status | | + + + | Congregation Affiliation | 1027 | + + + | Race | Unknown | + + + | Ethnic Group | Unknown | + + + Author + + + | Author | [facility] | | | and [place] | + + + | Organization | [facility] | | | and [place] | + + + | Address | Unknown | + + + | Phone | Unavailable | + + + Support + + + + + | Name | Relationship | Address | Phone | + + + + + | Cristofer Vogt | ECON | [address] | | | | | [place], | | | | | [place] [address] | | + + + + + | Ryan Vogt | ECON | Unknown | | + + + + + | Rob Vogt | ECON | Unknown | | + + + + + Care Team Providers + +------+ + | Care Bench Machine Operator Name | Role | Phone | + +------+ + PCP | Unavailable | + +------+ + Encounter Details +--------+ + + + + | Date | Type | Department | Care Team | Description | +--------+ + + + + | 04/16/ | Hospital | [facility] | Ifeanyi Romo, | | | 2008 | Encounter | MED CTR LABORATORY | [address] | | | | | [address] [place] | [place] | | | | | [place] | [address] | | | | | [address] | | | | | | [phone] | | | +--------+ + + + + Social History + +-------+ +--------+------+ | Tobacco Use | Types | Packs/Day | Years | Date | | | | | Used | | + +-------+ +--------+------+ | Never Assessed | | | | | + +-------+ +--------+------+ + + + | Sex Assigned at [...] | Abrahan Samaniego MD | | | 2019 | Visit | | [address] | | | | | | [place] | | | | | | [address] | | | | | | | | +--------+---------+ + + + | 07/25/ | Office | Cardiology | Renetta | | | 2020 | Visit | | [place] [facility] [address] | | | | | | [place], | | | | | | [place] [address] | | | | | | [phone] | | | | | | | | +--------+---------+ + + + | 09/03/ | Office | Endocrinology | Cheryl Zee MD | | | 2020 | Visit | | [address] | | | | | | [address] [place] | | | | | | [address] | | | | | | | | +--------+---------+ + + + documented as of this encounter Visit Diagnoses Not on filedocumented in this encounter"
--- OUTSIDE RECORDS SUMMARY | ~2020-01-04 | XMS | Encounter Summary ---
Demographics + + + | Address | [address] | | | [place] [address] | + + + | Home Phone | | + + + | Preferred Language | Unknown | + + + | Marital Status | | + + + | Restorationist Affiliation | 1027 | + + + | Race | Unknown | + + + | Ethnic Group | Unknown | + + + Author + + + | Author | [facility] | | | and [place] | [...] [place], | | | | | [place] [address] | | + + + + + | Ryan Vogt | ECON | Unknown | | + + + + + | Rob Vogt | ECON | Unknown | | + + + + + Care Team Providers + +------+ + | Care Tank Car Loader Name | Role | Phone | + +------+ + | Abrahan Samaniego MD | PCP | | + +------+ + Reason for Visit + +--------+ + | Reason | Onset | Comments | | | Date | | + +--------+ + | Medication Question | 08/13/ | | | | 2017 | | + +--------+ + Encounter Details +--------+ + + + + | Date | Type | Department | Care Team | Description | +--------+ + + + + | 08/13/ | Telephone | [facility] | Abrahan Samaniego MD | Medication Question | | 2017 | | MEDICINE [address] [place] [address] | [address] [facility] | | | | | [place], | [place] | | | | | [place] [address] | [address] | | | | | [phone] | | | +--------+ + + + [...] + + documented as of this encounter Miscellaneous Notes Telephone Encounter - Christina Wilson LPN - 08/13/2017 1:[address] Samaniego 's instructions to start Levaquin and increase prednisone to 20mg daily. Advised of ER eval if N/V, lightheaded or fainting. She will call on Wednesday with update. elephone Encounter - Abrahan Samaniego MD - 0 08/13/2017 12:35 PM PSTStart on Levaquin for sinusitis and increase the prednisone to 20 mg d aily Should go straight to the ER of N/V, lightheadedness or fainting spells. Should call or send a [employer] message on Wednesday with how she is doing. Can call on-call doctor this weekend (me) if not doing well elephone Encounter - Christina Wilson LPN - 8 11:32 AM PSTPatient states she has some type of a "bug" which started on Wednesday (fatigue, sinus congestion) - states she took 15mg prednisone on Wednesday, Wednesday and - sa id today still feeling fatigued and has congestion - asking if she should take another 15mg today or do some type of lab test. elephone Encounter - Pepper De La Cruz - 08/13/2017 8:56 AM PSTPatient called a nd stated she is having adrenal insufficiency. Took extra prednisone 5 mg on Wednesday, , and . Patient is unsure if she should continue with extra dosage? Please advise.Electronically si gned by Pepper De La Cruz at 08/13/2017 8:59 AM PSTdocumented in this encounter Plan of Treatment +--------+---------+ + + + | Date | Type | Specialty | Care Team | Description | +--------+---------+ + + + | 04/29/ | Office | Internal Medicine | Abrahan Samaniego MD | | | 2019 | Visit | | [address] [place] [address] | | | | | | [place] | | | | | | [phone] | | | | | | | | +--------+---------+ + + + | 07/25/ | Office | Cardiology | Renetta, | | | 2020 | Visit | | [facility] [address] | | | | | | [place] [place] | | | | | | [place] [address] | | | | | | [phone] | | | | | | | | +--------+---------+ + + + | 09/03/ | Office | Endocrinology | Cheryl Zee MD | | | 2020 | Visit | | [address] | | | | | | [address] [place] | | | | | | [address] | | | | | | | | +--------+---------+ + + + documented as of this encounter Visit Diagnoses Not on filedocumented in this encounter
--- OUTSIDE RECORDS SUMMARY | ~2020-01-04 | XMS | Encounter Summary ---
Demographics + + + | Address | [address] | | | [place] [address] | + + + | Home Phone | | + + + | Preferred Language | Unknown | + + + | Marital Status | | + + + | Shinto Affiliation | 1027 | + + + | Race | Unknown | + + + | Ethnic Group | Unknown | + + + Author + + + | Author | [facility] | | | and [place] | + + + | Organization | [facility] | | | and [...] [place], | | | | | [place] [address] | | + + + + + | Ryan Vogt | ECON | Unknown | | + + + + + | Rob Vogt | ECON | Unknown | | + + + + + Care Team Providers + +------+ + | Care Rubber Tire Curer Name | Role | Phone | + +------+ + | Abrahan Samaniego MD | PCP | | + +------+ + Encounter Details +--------+ + + + + | Date | Type | Department | Care Team | Description | +--------+ + + + + | 12/20/ | Hospital | [facility] | | | | 2010 | Encounter | MED CTR EMERGENCY | | | | | | CENTER [address] | | | | | | [place] | | | | | | [address] | | | | | | [phone] | | | +--------+ + + + [...] | | 2019 | Visit | | [facility] [address] | | | | | | [place] | | | | | | [address] | | | | | | | | +--------+---------+ + + + | 07/25/ | Office | Cardiology | Renetta, | | | 2020 | Visit | | [facility] [address] | | | | | | [address] | | | | | | [place] [address] | | | | | | [phone] | | | | | | | | +--------+---------+ + + + | 09/03/ | Office | Endocrinology | Cheryl Zee MD | | | 2020 | Visit | | [address] | | | | | | [address] [place] | | | | | | [address] | | | | | | | | +--------+---------+ + + + documented as of this encounter Visit Diagnoses Not on filedocumented in this encounter"
--- OUTSIDE RECORDS SUMMARY | ~2020-01-04 | XMS | Encounter Summary ---
Demographics + + + | Address | [address] | | | [place] [address] | + + + | Home Phone | | + + + | Preferred Language | Unknown | + + + | Marital Status | | + + + | Yazidi Affiliation | 1027 | + + + | Race | Unknown | + + + | Ethnic Group | Unknown | + + + Author + + + | Author | [facility] | | | and [place] | + + + | Organization | [facility] | | | and [...] [address] | | | | | [address] [place], | | | | | [place] [address] | | + + + + + | Ryan Vogt | ECON | Unknown | | + + + + + | Rob Vogt | ECON | Unknown | | + + + + + Care Team Providers + +------+ + | Care Eating Disorder Specialist Name | Role | Phone | + +------+ + | Abrahan Samaniego MD | PCP | | + +------+ + Reason for Visit +--------+ + | Reason | Comments | +--------+ + | Other | figure locking | +--------+ + Encounter Details +--------+---------+ + + + | Date | Type | Department | Care Team | Description | +--------+---------+ + + + | 06/09/ | Office | [facility] | Abrahan Samaniego MD | Bilateral hip pain | | 2013 | Visit | [address] | [address] [place] [address] | (Primary Dx); | | | | [place], | [place] | Trigger finger; | | | | [place] [address] | [address] | Other and | | | | [phone] | | unspecified | | | | | | hyperlipidemia | +--------+---------+ + + + Social History + +-------+ [...] + + + | Blood Pressure | 116/78 | 06/09/2013 11:28 AM | | | | | PST | | + + + + + | Pulse | 64 | 06/09/2013 11:28 AM | | | | | PST | | + + + + + | Temperature | - | - | | + + + + + | Respiratory Rate | - | - | | + + + + + | Oxygen Saturation | - | - | | + + + + + | Inhaled Oxygen | - | - | | | Concentration | | | | + + + + + | Weight | 67.1 kg (148 lb) | 06/09/2013 11:28 AM | | | | | PST | | + + + + + | Height | 162.6 cm (5' 4") | 06/09/2013 11:28 AM | | | | | PST | | + + + + + | Body Mass Index | 25.4 | 06/09/2013 11:28 AM | | | | | PST | | + + + + + documented in this encounter Progress Notes Abrahan Samaniego MD - 06/09/2013 12:58 PM PSTdictated Abrahan North MD - 06/09/2013 12:00 AM PST INTERNAL MEDICINE [facility] [place], [place] [address] FAX: [phone] OFFICE VISIT Mona is in clinic today for: 1. Right middle finger dysfunction: She reports that either late at night or early in the morning she will flex her right middle finger and it will become "stuck" at the PIP joint. S he is able to open it without using her other hand and there is minimal pain involved with it. She has seen a hand specialist for contracture in the right pinky finger, which was not corrected because of insurance not covering. 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 The right midd le finger issue was not occurring at the time she saw the hand specialist so she has not ad dressed that with him. 2. Bilateral hip pain: She has bilateral hip pain and does not really know if it is in the groin area or in the lateral aspect. It does, however, hurt when she lays on it at night. S he says she is unable to really determine if she is worse when she is up walking, if she go es from a sitting to standing position, etc. She just prefers to ignore pain and not pay at tention to it. She had an x-ray done some time ago that showed early degenerative changes i n the right hip. Both hips both her, but the right is worse than the left. It is not interf ering with her activities of daily living. 3. Hypercholesterolemia. She had a recent HDL of 50 and LDL of 159. She was started on stat in by her machine maintenance servicer. She felt, however, that her arthritis got worse on the statin so she discontinued it. PAST MEDICAL HISTORY, SURGICAL HISTORY, MEDICATIONS, ALLERGIES: All reviewed today. SOCIAL HISTORY: She enjoys playing the organ in her voodoo. 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 Her husb and is on dialysis. She is a nondrinker, nonsmoker lifetime. PHYSICAL EXAMINATION GENERAL: A female in no acute distress. MUSCULOSKELETAL: No trigger finger is noted at the right middle finger. She has a slight c ontracture of the right fifth finger. Both hips have nice range of motion. No tenderness ove r the trochanteric bursa. No tenderness over the iliotibial bands. ASSESSMENT AND PLAN 1. RIGHT MIDDLE FINGER TRIGGER FINGER: We talked about this being very mild and she actuall y needs to schedule an appointment to followup with her hand specialist. She is going to br ing this to his attention when she sees him. She is given reassurance that this is not jj re or life-threatening and there is treatment for it should it worsen. 2. BILATERAL HIP PAIN: Differential diagnosis includes arthritis, trochanteric bursitis, i liotibial band syndrome, pain referred from her back and other. An AP pelvis film is ordered . 3. HYPERCHOLESTEROLEMIA: Using the NCEP calculator, she has a 10-year risk of 3%. She is, however, on prednisone, which likely increases her risk of coronary disease to at least some extent. She was able to get her cholesterol down significant through diet and weight loss and she has lost over 20 pounds, and I discussed the risks, benefits and side effects of c holesterol medications and at this point she would like to continue with diet, weight loss a nd repeat her lipid panel in a year. More than 15 minutes was spent face to face with the patient, of which more than 50% was in discussion and counseling. Abrahan Samaniego MD [place]RI[place] / EDGAR JOB #: [id number] signed by Abrahan Samaniego MD at 06/11/2013 5:15 PM PSTdocument ed in this encounter Miscellaneous Notes Miscellaneous - BISHNU LOERA - 06/09/2013 12:00 AM PST documented in this encounter Plan of Treatment +--------+---------+ + + + | Date | Type | Specialty | Care Team | Description | +--------+---------+ + + + | 04/29/ | Office | Internal Medicine | Abrahan Samaniego MD | | | 2019 | Visit | | [address] | | | | | | [place] | | | | | | [address] | | | | | | | | +--------+---------+ + + + | 07/25/ | Office | Cardiology | Renetta, | | | 2020 | Visit | | [facility] [address] | | | | | | [address] [place] | | | | | | [place] [address] | | | | | | [phone] | | | | | | | | +--------+---------+ + + + | 09/03/ | Office | Endocrinology | Cheryl Zee MD | | | 2020 | Visit | | [address] [place] | | | | | | [address] [place] | | | | | | [address] | | | | | | | | +--------+---------+ + + + documented as of this encounter Results XR Pelvis 1 or 2 Vw (06/09/2013 1:42 PM PST) + + | Specimen | + + | | + + + + + | Narrative | Performed At | + + + | [facility] | [facility] | | Department [address], [place] | [facility] | | [ rep [address]] [ rep ct [facility] | | st zip] Signed | - IMAGING | | | | | Patient Name: MONA VOGT Physician: | | | : 1950 Age: 63 Sex: F Unit #: [id number] | | | Exam Date: 06/09/13 [place] [facility] [place] | | Report #: [id number] Page: | | | %(RAD)RES..mtdd.print.filter("pg") of %(RAD) | | | RES..mtdd.print.filter("tpg") | | | | | | Accession Number: [id number] | | | AP VIEW OF THE PELVIS CLINICAL HISTORY: BILATERAL HIP | | | PAIN. FINDINGS: AP view of the pelvis shows normal | | | femoral acetabular joint relationships. The joint spaces are well | | | maintained. Subchondral bone is smooth and normal. Femoral heads | | | show normal contour. Sacroiliac joints and symphysis pubis are | | | normally aligned. No other focal bony abnormality is seen. | | | Adjacent soft tissues are normal. IMPRESSION: | | | 1. NEGATIVE STUDY OF THE PELVIS. Dictated Date/Time: | | | 06/09/2013 13:42 Transcribed Date/Time: 06/09/2013 13:54 | | | Pitting Machine Operator: <<Signature on File>> | | | | | | Chan Shahid MD06/09/13 1442 <Electronically signed by | | | Chan Shahid MD> Chan Shahid MD 06/09/13 | | | 1342 Pitting Machine Operator: [employer] Corporationvazquez Uuenfcalycgpc83/03/14 2135 | | | Abrahan Samaniego MD | | + + + + + + + + | Performing | Address | City/State/Zipcode | Phone Number | | Organization | | | | + + + + + | [facility] | [address] | [place] | [phone] | | [facility] | | [address] | | | - IMAGING | | | | + + + + + documented in this encounter Visit Diagnoses + + | Diagnosis | + + | Bilateral hip pain - Primary Pain in joint, pelvic region and thigh | + + | Trigger finger Trigger finger (acquired) | + + | Other and unspecified hyperlipidemia | + + documented in this encounter
--- OUTSIDE RECORDS SUMMARY | ~2020-01-04 | XMS | Encounter Summary ---
Demographics + + + | Address | [address] | | | [place] [address] | + + + | Home Phone | | + + + | Preferred Language | Unknown | + + + | Marital Status | | + + + | Hinduism Affiliation | 1027 | + + + | Race | Unknown | + + + | Ethnic Group | Unknown | + + + Author + + + | Author | [facility] | | | and [place] | + + + | Organization | [facility] | | | [...] [address] | | | | [address], | | | | | [place] [address] | | + + + + + | Ryan Vogt | ECON | Unknown | | + + + + + | Rob Vogt | ECON | Unknown | | + + + + + Care Team Providers + +------+ + | Care Legal Recruiter Name | Role | Phone | + +------+ + | Abrahan Samaniego MD | PCP | | + +------+ + Reason for Referral (Routine) + +--------+ + + + + | Status | Reason | Specialty | Diagnoses / | Referred By | Referred To | | | | | Procedures | Contact | Contact | + +--------+ + + + + | Pending | | | Diagnoses | Kellie, | | | Review | | | Complex | Mitch | | | | | | tear of | [facility] [place] | | | | | | medial | [address] | | | | | | meniscus of | [address] [place] | | | | | | right knee | [place] | | | | | | as current | [address] | | | | | | injury, | Phone: | | | | | | initial | [phone] | | | | | | encounter | Fax: | | | | | | Procedures | [phone] | | | | | | DME: | | | | | | | Crutches | | | + +--------+ + + + + Reason for Visit Auth/Cert +--------+--------+ + + + + | Status | Reason | Specialty | Diagnoses / | Referred By | Referred To | | | | | Procedures | Contact | Contact | +--------+--------+ + + + + | | | | Diagnoses | | Roland, | | | | | Complex | | Eugene Shrestha MD | | | | | tear of | | [address] | | | | | medial | | [address] [place] | | | | | meniscus of | | [place], [place] | | | | | right knee | | [address] Phone: | | | | | as current | | [phone] | | | | | injury, | | Fax: | | | | | initial | | [phone] | | | | | encounter | | | | | | | Right knee | | | | | | | pain, | | | | | | | unspecified | | | | | | | chronicity | | | | | | | Acute pain | | | | | | | of right | | | | | | | knee | | | | | | | Procedures | | | | | | | [place] KNEE | | | | | | | SCOPE,DIAGNO | | | | | | | STIC [place] | | | | | | | KNEE | | | | | | | SCOPE,PART | | | | | | | SYNOVECT [place] | | | | | | | KNEE | | | | | | | SCOPE,SHAVE | | | | | | | ARTICULAR | | | | | | | CART [place] | | | | | | | ARTHRS KNEE | | | | | | | W/MENISCECTO | | | | | | | MY MED&LAT | | | | | | | W/SHAVING | | | | | | | [place] ARTHRS | | | | | | | KNE SURG | | | | | | | W/MENISCECTO | | | | | | | MY MED/LAT | | | | | | | W/SHVG [place] | | | | | | | KNEE | | | | | | | SCOPE,MED OR | | | | | | | LAT MENIS | | | | | | | REPAIR | | | | | | | RIGHT KNEE | | | | | | | ARTHROSCOPY | | | | | | | AND | | | | | | | DEBRIDEMENT | | | +--------+--------+ + + + + Encounter Details +--------+ + + + + | Date | Type | Department | Care Team | Description | +--------+ + + + + | 06/02/ | Hospital | [facility] | Eugene Watkins | Complex tear of | | 2019 | Encounter | [facility] | LMD [address] | medial meniscus of | | | | [address] | [place] | right knee as | | | | [place] | [address] | current injury, | | | | [address] | | initial encounter; | | | | [phone] | | Right knee pain, | | | | | | unspecified | | | | | | chronicity; Acute | | | | | | pain of right knee; | | | | | | Complex tear of | | | | | | lateral meniscus of | | | | | | right knee as | | | | | | current injury, | | | | | | initial encounter; | | | | | | Chondromalacia of | | | | | | knee, right | +--------+ + + + + Social [...] + + + | Blood Pressure | 133/60 | 06/02/2019 5:00 PM | | | | | PST | | + + + + + | Pulse | 79 | 06/02/2019 5:00 PM | | | | | PST | | + + + + + | Temperature | 36.8 C (98.2 F) | 06/02/2019 2:19 PM | | | | | PST | | + + + + + | Respiratory Rate | 14 | 06/02/2019 3:13 PM | | | | | PST | | + + + + + | Oxygen Saturation | 95% | 06/02/2019 5:00 PM | | | | | PST | | + + + + + | Inhaled Oxygen | - | - | | | Concentration | | | | + + + + + | Weight | 70.9 kg (156 lb 4.9 | 06/02/2019 10:37 AM | | | | oz) | PST | | + + + + + | Height | 160 cm (5' 3") | 06/02/2019 10:37 AM | | | | | PST | | + + + + + | Body Mass Index | 27.69 | 06/02/2019 10:37 AM | | | | | PST | | + + + + + documented in this encounter Discharge Instructions Instructions Bernadette Sanchez RN - 06/02/2019Please keep appointment in Dr Watkins's off ice as already scheduled. Remove the bandages on the third post op day but leave steri-strips in place. Apply bandai ds to portal wound sites. May get wound wet in shower on third post op day. May shower donnie or to this if bandages and wound are protected from water with Saran wrap or something evin dacosta. Post Operative Care: You can discontinue use of crutches in 1-2. Proceed to full wt bearing on right foot as tolerated Continue to perform gentle range of motion of knee as tolerated Take pain medication as prescribed if prescribed Take one aspirin 325mg daily for blood thinning therapy for next month If you have any questions, comments or concerns please contact our office Do not exceed 4,000 mg of acetaminophen (Tylenol) per day. Hydrocodone-acetaminophen ([place] ) and Oxycodone-acetaminophen (Percocet) have 325 mg acetaminophen per tablet. Regular stren gth acetaminophen is 325 mg per tablet. Extra strength has 500 mg per tablet. Do not consume alcohol while taking opioid mediations. If constipation arises, try docusate-senna one tablet twice daily; milk of magnesia 30 mL o nce each night; or Miralax one capful (17 grams) dissolved in half a cup of water once daily for 3 days. If constipation does not resolve within 3 days after discharge, contact the doc tor's office. documented in this encounter Medications at Time [...] amLODIPine | Take 1 tablet by | 30 | 5 | 01/19/20 | | | (NORVASC) 2.5 mg | mouth Daily. | tablet | | 19 | 0 | | tablet | | | | | | + + + +---------+ + + | aspirin 325 mg | Take 1 tablet by | 30 | 0 | 06/02/20 | | | tablet | mouth Daily. | tablet | | 19 | 0 | + + + +---------+ + + | atorvaSTATin | Take 1 tablet by | 90 | 3 | 01/27/20 | | | (LIPITOR) 20 mg | mouth nightly. | tablet | | 19 | 0 | | tablet | | | | | | + + + +---------+ + + | | Take 1 tablet by | 30 | 0 | 06/02/20 | | | HYDROcodone-acetamin | mouth EVERY 4 TO 6 | tablet | | 19 | 0 | | ophen (NORCO) | HOURS NEEDED. | | | | | | 7.5-325 mg per | | | | | | | tablet | | | | | | + + + +---------+ + + | levothyroxine | Take 1 tablet by | 90 | 4 | 05/10/20 | | | (SYNTHROID) 100 mcg | mouth every morning | tablet | | 19 | 0 | | tabletIndications: | (before breakfast). | | | | | | Secondary | | | | | | | hypothyroidism | | | | | | + + + +---------+ + + | potassium chloride | take 1 tablet by | 90 | 3 | 08/27/19 | | | (KLOR-CON) 10 mEq | mouth once daily | tablet | | 19 | 0 | | CR tablet | | | | | | + + + +---------+ + + | predniSONE | One daily for total | 90 | 4 | 05/10/20 | | | (DELTASONE) 1 mg | 6 mg daily | tablet | | 19 | 0 | | tabletIndications: | | | | | | | Secondary adrenal | | | | | | | insufficiency (HCC) | | | | | | + + + +---------+ + + | predniSONE | take 1 tablet by | 120 | 4 | 05/10/20 | | | (DELTASONE) 5 mg | mouth daily MOST | tablet | | 19 | 0 | | tabletIndications: | DAYS INCREASE TO 3 | | | | | | Secondary adrenal | tablets daily for 3 | | | | | | insufficiency (HCC) | days WHEN SICK | | | | | + + + +---------+ + + | Somatropin | Inject 0.3 mg under | 5 each | 2 | 05/10/20 | | | (OMNITROPE) 5.8 MG | the skin Daily. | | | 19 | 0 | | SOLR | | | | | | + + + +---------+ + + documented as of this encounter H&P Notes Eugene Watkins MD - 06/02/2019 12:59 PM PSTSURGICAL INTERIM HISTORY & PHYSICAL UPDAT E Pt. Name/Age/: Oliva Vogt 69 y.o. 1950 Date of admission: 06/02/2019 The current H&P was reviewed. The patient was reexamined. Re-evaluation of the patient co nfirms the necessity for the scheduled procedure. No change has occurred in the patient s condition since the H&P was completed less than 30 days ago. VERIFICATION OF CONSENT (PARQ) The patient was counseled regarding the procedure, its indications, risks, potential compli cations and alternatives. Any questions were answered. Consent was obtained. Electronically signed by: Eugene Watkins MD, 06/02/2019 12:59 PM [facility] Eugene Ortiz MD - 05/23/2019 10:00 AM PST History of present illness: Oliva is a 69 y.o. female who presents to our clinic today for a preop examination. Oliva is scheduled for a knee arthroscopy on 10/31/2018. She has a gre ater than 1/2-year history of right knee pain that has failed conservative measures. Her r ight knee pain is aggravated by physical activity and has not improved with time. She there fore underwent an MRI scan which shows evidence of a prominent medial meniscus tear and she therefore is felt to be an appropriate candidate for right knee arthroscopic surgery. Past Medical History: Diagnosis Date Adrenal insufficiency (HCC) 05/16/2012 Atypical chest pain 01/26/2019 DDD (degenerative disc [...] CV LHC; Surgeon: Benigno Deras MD; Location: [facility] CV LAB CHOLECYSTECTOMY COLONOSCOPY 03/12/2014 COLONOSCOPY; Laterality: N/A; Surgeon: Shaji Thornton MD; Location: [facility] MEDICAL PROCEDU RE UNIT CYST REMOVAL Left 1969 ENDOMETRIAL BIOPSY 2007 Benign Skull Biopsy 09/28/2011 (Benign) TUBAL LIGATION Bilateral Allergies Allergen Reactions Succinylcholine Chloride Other (See Comments) Hard to wake up Current Outpatient Medications on File Prior to Visit Medication Sig Dispense Refill amLODIPine (NORVASC) 2.5 mg tablet Take 1 tablet by mouth Daily. 30 tablet 5 aspirin 81 MG tablet Take 81 mg by mouth Daily. atorvaSTATin (LIPITOR) 20 mg tablet Take 1 tablet by mouth nightly. 90 tablet 3 cholecalciferol (CHOLECALCIFEROL) 1000 units TABS Take 1 tablet by mouth Daily. levothyroxine (SYNTHROID) 100 mcg tablet Take 1 tablet by mouth every morning (before b reakfast). 90 tablet 4 Multiple Vitamins-Minerals (WOMENS MULTIVITAMIN PLUS) TABS Take by mouth Daily. potassium chloride (KLOR-CON) 10 mEq CR tablet take 1 tablet by mouth once daily 90 tab let 3 predniSONE (DELTASONE) 1 mg tablet One daily for total 6 mg daily 90 tablet 4 predniSONE (DELTASONE) 5 mg tablet take 1 tablet by mouth daily MOST DAYS INCREASE TO 3 tablets daily for 3 days WHEN SICK 120 tablet 4 Somatropin (OMNITROPE) 5.8 MG SOLR Inject 0.3 mg under the skin Daily. 5 each 2 No current facility-administered medications on file prior to visit. Family History Problem Relation Age of Onset [...] file Highest education level: Not on file Occupational History Not on file Social Needs Financial resource strain: Not on file Food insecurity: Worry: Not on file Inability: Not on file Transportation needs: Medical: Not on file Non-medical: Not on file Tobacco Use Smoking status: Never Smoker Smokeless tobacco: Never Used Substance and Sexual Activity Alcohol use: No Drug use: No Sexual activity: Never Lifestyle Physical activity: Days per week: Not on file Minutes per session: Not on file Stress: Not on file Relationships Social connections: Talks on phone: Not on file Gets together: Not on file Attends gnosticist service: Not on file Active member of club or organization: Not on file Attends meetings of clubs or organizations: Not on file Relationship status: Not on file Intimate partner violence: Fear of current or ex partner: Not on file Emotionally abused: Not on file Physically abused: Not on file Forced sexual activity: Not on file Other Topics Concern Not on file Social History Narrative in 2019 . She works at the [employer]. She doesn't exercise because she is so busy with h er grands. Enjoys doing [employer]. 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 Review of Systems Eyes: [x] Double vision [x] Glasses/contacts [] Failing vision Ear/Nose/Throat: [] Frequent Colds [] Sinus Disease [] Nose obstruction [] Sneezing Spells [] Change in taste [] Artificial teeth [x] Ears ringing [] Ear pain [] Hearing los s [] Teeth problems [] Hoarseness [] Neck swelling [] Sore throat [] Congestion [] Nosebleeds [] Nasal allergies Respiratory: [] Asthma/Wheezing [] Pneumonia [] Night sweats [] Shortness of breath [] Chronic cough [] Coughing up blood [] Exposure to tuberculosis Cardiovascular: [] Heart Problems [x] Hypertension [] Heart murmur [] Palpitations [] Rheumatic fever [] Phlebitis [] Chest pain [x] Ankle swelling [] Leg cramps [] Raci ng heart [] Skipping beats [] Blood clots Gastrointestinal: [] Abdominal pain [] Heartburn [] Blood from rectum [] Colitis [] Gallbladder problems [] Troubl e swallowing [] Bloated stomach [] Change in stools [] Vomiting blood [] Nausea [] Hemorrhoids [] Jaundice [ ] Hepatitis [] Diarrhea [] Constipation [] Diverticulitis Urinary Tract: [] Painful urination [] Kidney Stones [] Any urine leakage [] Weak urine stream [x] Night urination [] Urine infections [] Bedwetting [] Blood in urine Skin: [] Skin rashes [] Itching/Burning [x] Skin bruises easi ly [] Artificial tanning [] Skin cancer [] Hair loss [] Changes in moles Musculoskeletal: [] Physical handicaps [] Back or shoulder pain []Rheumatoid disease [] Osteoarthritis [] Joint pain [] Joint swelling []Gout [] Leg cramps at night Neurological: [] Headaches [] Seizures [] Stroke/TIA [] Faintness [] Tremors [] Numbness [] Dizziness [] Changes in handwriting [] Memory loss [] Shooting pains Psychiatric: [] Depression [] Suicidal thoughts [] Sleep pattern changes [] Appetite changes [x] Recent counseling [] Nervousness/anxiety [] Physical violence [] Marital problems Endocrine: [] Thyroid [] Diabetes Systemic: []Weight loss/gain (over 10 lbs) []Fever/chills []Fatigue [] Sleeping Difficulties [] Speech change [] Voice change There were no vitals filed for this visit. Estimated body mass index is 27.72 kg/m as amanda culated from the following: Height as of 05/10/19: 1.605 m (5' 3.19"). Weight as of 05/10/19: 71.4 kg (157 lb 6.4 oz). Physical examination:Patient is alert and oriented and in no acute distress. Inspection reveals: Skin is warm dry and intact with no gross deformity. Head: Oral pharnyx nonerythematous nonedematous no exudate noted Neck: Supple nontender without any lymphadenopathy. Heart: Regular rate and rhythm. Lungs: Clear to auscultation. Abdomen: Soft nontender no masses organomegaly. Cranial nerves 2-12 grossly intact. Musculoskeletal: Exam of the right knee reveals distinct tenderness to palpation over the p osterior medial joint line. Neurovascular function is intact to both feet. Assessment: Torn medial meniscus right knee. Plan: The patient is scheduled for a right knee arthroscopy on 10/31/2018. Therefore, the p lanned procedure with its risks, possible complications, expected prognosis, and treatment a lternatives was discussed with the patient. Risks and possible complications were listed bu t not limited to infection, nerve and vessel damage, bleeding, pain, scarring, stiffness, re sidual symptoms remaining after surgery, and the risk of anesthesia including . No gua rantees were given or implied other than that of diligent effort. documented in th is encounter Miscellaneous Notes Plan of Care - Brigido Donald, PT - 06/02/2019 6:08 PM PSTFormatting of this note might b e different from the original. 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 Oliva was given crutches, the cru tches were adjusted appropriately, and complete instructions on safe use were given. Oliva is demonstrating safe management of basic functional mobility with use of crutches. Oliva did not demonstrate continued need for skilled PT at this time, discharge PT. Date of Onset of Illness/Injury or Date of Surgery: 06/02/19 Start of Care/Start of Certification Date: 06/02/19 End of Certification Date: 06/02/19 Referring Provider: Eugene Watkins MD Previous Level of Function: Transferring: independent Ambulation: independent Toileting: independent Bathing: independent Dressing: independent Eating: independent Communication: understands/communicates without difficulty Swallowin-->swallows foods/liquids without difficulty Equipment Currently Used at Home: none Potential available assistance at discharge: Significant Relationships: child Role Relationships Comment: lives with granddaughter although granddaughter is also having knee surgery today Living Environment/Accessibility: Lives With: child(rene), adult Living Arrangements: house Home Accessibility: stairs to enter home Number of Stairs to Enter Home: 2 Stair Railings at Home: none LE ROM: Within Normal Limits LE Strength: Within Normal Limits Balance: fair Basic Mobility Status: Assistance Level Assistive device Bed Mobility modified independence Sit to Stand Transfer modified independence crutches Toilet Transfer modified independence crutches Gait modified independence crutches 50 feet Stairs supervision crutches 1 stairs Goal: Patient to demonstrate independent and safe management of assistive device for mobili ty although would benefit from supervision on the steps to into her home and her designated reservoir caretaker, who will be taking her home, is trained to provide supervision. Assessment: Oliva Vogt has met PT goals and is safe to return home with assistanc e. Electronically signed by: Brigido Donald, PT, 06/02/2019 6:09 PM ICD-10-CM ICD-9-CM 1. Complex tear of medial meniscus of right knee as current injury, initial encounter S83.2 31A 836.0 DME: Crutches Added automatically from request for surgery [id number] 2. Right knee pain, unspecified chronicity M25.561 719.46 Added automatically from request for surgery [id number] 3. Acute pain of right knee M25.561 719.46 Added automatically from request for surgery [id number] 4. Complex tear of lateral meniscus of right knee as current injury, initial encounter S83. 271A 836.1 5. Chondromalacia of knee, right M94.261 717.7 p Note - Hender son, Eugene Shrestha MD - 06/02/2019 2:10 PM PSTOPERATIVE REPORT EUGENE WATKINS MD Patient: Oliva Vogt Admitting: EUGENE WATKINS MR #: [id number] DATE OF SURGERY:06/02/2019 DATE OF DICTATION:06/02/2019 OPERATIVE SURGEON: Dr. Eugene Watkins PROTECTIVE SIGNAL SUPERINTENDENT: Mitch Hopkins PA-C ANESTHESIOLOGIST: Dr. Amilcar More PREOPERATIVE DIAGNOSIS: Internal derangement right knee. POSTOPERATIVE DIAGNOSIS: Internal derangement right knee with a complex tears of the medial and lateral menisci, and grade 3 chondromalacia of the medial femoral condyle and patella f emoral compartment. TITLE OF PROCEDURE: Right knee arthroscopy with partial medial and lateral menisectomies, a nd motorized chondroplasty of the medial femoral condyle and the patella femoral compartment . HISTORY AND REASON FOR SURGERY: Oliva is a 69 y.o. female with a 1/2 year history of intermittent and gradually worsening right knee p ain. Her pain is aggravated by physical activity and has not improved with time. She fail ed conservative management including rest, anti-inflammatories and decreased activity. An MR I scan was obtained which showed torn medial and lateral menisci and in view of these findin gs she was felt to be a candidate for operative arthroscopy. Therefore, the planned procedur e with its risks possible complications, expected prognosis and treatment alternatives was d iscussed with the patient. Risks and possible complications were listed but not limited to i nfection, nerve and vessel damage, bleeding, pain, scarring, stiffness, possibility of some residual symptoms remaining after surgery and the risk of anesthesia. she verbalized underst anding, no guarantees were given nor implied other than that of diligent effort. OPERATIVE ARTHROSCOPIC FINDINGS: The lateral gutter, medial gutter and prepatellar pouch we re free of pathology. The patellofemoral compartment showed grade 3 chondromalacia of the pa tella with unstable articular cartilage flaps. The medial compartment showed a large, comple x tear involving 40-60% of the middle and posterior horns with a pedunculated posterior horn fragment, a delamination tear, and overall maceration. There was also grade 3 chondromalac ia of the weight bearing area of the medial femoral condyle with unstable articular cartilag e flaps. The intracondylar notch showed intact anterior and posterior cruciate ligaments. The lateral compartment showed complex tearing of 30-40% of the far posterior horn. OPERATIVE PROCEDURE: After the patient had signed the consent for surgery, she was brought to the operating room where she underwent general anesthesia successfully. She had already r eceived 2 grams of IV Ancef. A tourniquet was applied to the right lower extremity, but was not used. The entire right lower extremity was prepped with alcohol and ChloraPrep and drape d in the usual free and sterile sterile manner. At this time, the middle column of the surgi amanda safety checklist was carried out by the surgical team. We injected the knee with 20 mL o f 2 percent lidocaine with epinephrine. We inserted a drain needle through a small stab inci sahil in the upper medial quadrant. We inserted an arthroscope into the knee through a small stab incision in the lower lateral quadrant. A portal was made in the lower medial quadrant with the aid of an 18 gauge needle. Inspection was carried out with the findings as noted ab ove. We then directed our attention to the medial compartment and performed a partial medial men isectomy trimming back the torn middle and posterior horns of the medial meniscus back to a stable edge. We also performed a motorized chondroplasty trimming away the unstable articul ar cartilage flaps from the weight bearing area of the medial femoral condyle back to a stab le surface. We then went to the lateral compartment and performed a partial lateral menise ctomy trimming back the posterior horn tear back to a stable edge. We finally went to the pa tella femoral compartment and performed a motorized chondroplasty trimming back the unstable patellar articular cartilage flaps back to a stable surface. This being done, we made sure all of the debris was removed from the knee and we then irrig ated the knee and upon this we then removed the instruments in the lower 2 portals and close d those portals with 4-0 Monocryl. We injected the knee with 9 mL of 0.5 percent Naropin com bined with 1 mL of betamethasone followed by which the drain needle was removed and all 3 in cisions were secured with Steri-Strips and benzoin. We then injected all 3 portal types with 3 mL each of 0.5 percent Naropin. We then dressed the wounds with dry gauze fluffs, ABD, st erile Kerlix and a 6 inch Braydon wrap. Anesthesia was terminated. The patient was transported to the recovery room in stable condi tion. There were no immediate postoperative complications. BLOOD LOSS: About 5 mL BLOOD REPLACED: None. SPECIMENS: None. FINDINGS: Same as postoperative diagnosis. PROGNOSIS: Is felt to be good. documented in th is encounter Plan of Treatment +--------+---------+ + + + | Date | Type | Specialty | Care Team | Description | +--------+---------+ + + + | 04/29/ | Office | Internal Medicine | Abrahan Samaniego MD | | | 2019 | Visit | | [address] [place] [address] | | | | | | [place] | | | | | | [address] | | | | | | | | +--------+---------+ + + + | 07/25/ | Office | Cardiology | Renetta, | | | 2020 | Visit | | PARKER Harris [address] | | | | | | [address], | | | | | | [place] [address] | | | | | | [phone] | | | | | | | | +--------+---------+ + + + | 09/03/ | Office | Endocrinology | Cheryl Zee MD | | | 2020 | Visit | | [address] | | | | | | [address] [place] | | | | | | [phone] | | | | | | | | +--------+---------+ + + + + +------+--------+ + + | Name | Type | Priori | Associated Diagnoses | Order Schedule | | | | ty | | | + +------+--------+ + + | DME: [facility] | DME | Routin | Complex tear of | Ordered: 06/02/2019 | | | | e | medial meniscus of | | | | | | right knee as | | | | | | current injury, | | | | | | initial encounter | | + +------+--------+ + + documented as of this encounter Procedures + +--------+ + + + | Procedure Name | Priori | Date/Time | Associated Diagnosis | Comments | | | ty | | | | + +--------+ + + + | ARTHROSCOPY KNEE | | 06/02/2019 | Complex tear of | | | | | 1:20 PM | medial meniscus of | | | | | PST | right knee as | | | | | | current injury, | | | | | | initial encounter | | | | | | Right knee pain, | | | | | | unspecified | | | | | | chronicity Acute | | | | | | pain of right knee | | + +--------+ + + + documented in this encounter Visit Diagnoses + + | Diagnosis | + + | Complex tear of medial meniscus of right knee as current injury, initial encounter | + + | Right knee pain, unspecified chronicity | + + | Acute pain of right knee | + + | Complex tear of lateral meniscus of right knee as current injury, initial encounter | + + | Chondromalacia of knee, right | + + | Secondary adrenal insufficiency (HCC) Glucocorticoid deficiency | + + | Panhypopituitarism (HCC) Panhypopituitarism | + + | Chronic renal insufficiency, stage II (mild) Chronic kidney disease, Stage II (mild) | + + | Secondary hypothyroidism Other specified acquired hypothyroidism | + + | Secondary hyperparathyroidism (HCC) Secondary hyperparathyroidism (of renal origin) | + + | Guero syndrome (HCC) Panhypopituitarism | + + | Adverse effect of anesthesia Unspecified adverse effect of anesthesia | + + | 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 | + + | Osteoporosis Osteoporosis, unspecified | + + documented in this encounter Admitting Diagnoses + + | Diagnosis | + + | Complex tear of medial meniscus of right knee as current injury, initial encounter | + + | Right knee pain, unspecified chronicity | + + | Acute pain of right knee | + + documented in this encounter Administered Medications + +--------+ +--------+------+------+ | Medication Order | MAR | Action | Dose | Rate | Site | | | Action | Date | | | | + +--------+ +--------+------+------+ | acetaminophen (TYLENOL) tablet | Given | 06/02/20 | 650 mg | | | | 650 mg 650 mg, Oral, ONCE, Fri | | 19 11:15 | | | | | 06/02/19 at 1115, For 1 dose, | | AM PST | | | | | Pre-op | | | | | | + +--------+ +--------+------+------+ + +---+ | | | + +---+ | albuterol 2.5 mg/3 mL nebulizer | | | solution 2.5 mg 2.5 mg, | | | Nebulization, ONCE PRN, Wheezing, | | | Starting Wed06/02/19 at 1410, | | | For 1 dose, Notify anesthesia if | | | patient is wheezing and does not | | | have a history of asthma or COPD | | | or current smoking., | | | Recovery/Phase I | | + +---+ | | | + +---+ | ceFAZolin (ANCEF, KEFZOL) 100 | | | mg/mL IV syringe 2 g 2 g, | | | Intravenous, Administer over 30 | | | Minutes, EVERY 8 HOURS INTERVAL, | | | First dose on Wed06/02/19 at | | | 2000, Pre-op, Indications: | | | Surgical Prophylaxis | | + +---+ | | | + +---+ + +-------+ +--------+---+---+ | celecoxib (CELEBREX) capsule | Given | 06/02/20 | 200 mg | | | | 200 mg 200 mg, Oral, ONCE, Wed | 11:15 | | | | | 06/02/19 at 1115, For 1 dose, | | AM PST | | | | | Doses > 200 mg should be given | | | | | | | with meals., Pre-op | | | | | | + +-------+ +--------+---+---+ + +---+ | | | + +---+ | dextrose 50% injection 12.5-25 | | | g 12.5-25 g, Intravenous, EVERY | | | 15 MIN PRN, Low Blood Sugar, Give | | | 12.5g (25 mL) IV if blood | | | glucose 50-69 mg/dL. Give 25g | | | (50 mL) IV if blood glucose < 50, | | | Starting Wed06/02/19 at 1048, | | | Repeat in 15 min if blood glucose | | | remains < 70 mg/dL. Repeat | | | blood glucose in 30 min once | | | blood glucose > 70., Pre-op | | + +---+ | | | + +---+ | dextrose 50% injection 12.5-25 | | | g 12.5-25 g, Intravenous, EVERY | | | 15 MIN PRN, Low Blood Sugar, For | | | hypoglycemia. Give 12.5g (25ml) | | | IV if blood glucose 50-69 | | | mg/dL. Give 25g (50ml) IV if | | | blood glucose < 50, Starting Fri | | | 06/02/19 at 1410, Give over 2 | | | min. Repeat in 15 min if blood | | | glucose remains < 70 mg/dL. | | | Repeat blood glucose in 30 min | | | once blood glucose > 70., | | | Recovery/Phase I | | + +---+ | | | + +---+ | diphenhydrAMINE (BENADRYL) 12.5 | | | mg/5 mL liquid 25 mg 25 mg, | | | Oral, EVERY 4 HOURS PRN, Itching, | | | Starting 06/02/19 at 1545, | | | Give nalbuphine 1st, if | | | ineffective or not ordered, | | | administer diphenhydrAMINE. | | | Oral route is preferred., | | | Post-op/Phase II | | + +---+ | | | + +---+ | diphenhydrAMINE (BENADRYL) | | | injection 12.5 mg 12.5 mg, | | | Intravenous, EVERY 4 HOURS PRN, | | | Itching, Starting 06/02/19 at | | | 1545, Give nalbuphine 1st, if | | | ineffective or not ordered, | | | administer diphenhydrAMINE. | | | Oral route is preferred., | | | Post-op/Phase II | | + +---+ | | | + +---+ | diphenhydrAMINE (BENADRYL) | | | tablet 25 mg 25 mg, Oral, EVERY | | | 4 HOURS PRN, Itching, Starting | | | Wed06/02/19 at 1545, Give | | | nalbuphine 1st, if ineffective or | | | not ordered, administer | | | diphenhydrAMINE. Oral route is | | | preferred., Post-op/Phase II | | + +---+ | | | + +---+ | fentaNYL (PF) injection 25-50 | | | mcg 25-50 mcg, Intravenous, | | | EVERY 5 MIN PRN, Pain, Initial | | | postop urgent pain or escalating | | | pain, Starting Wed06/02/19 at | | | 1410, For 4 doses, Every 5 | | | minutes PRN for initial postop | | | urgent pain or escalating pain up | | | to 2 doses maximum. If patient | | | meets opioid tolerant definition, | | | can give up to 4 doses maximum. | | | First dose must be lowest dose. | | | Use Pasero Sedation Scale. | | | [Opioid tolerant = One week or | | | longer, cixsnc-mga-xnyzt use of | | | at least the following DAILY | | | dose: 60mg oral morphine, 60mg | | | oral hydrocodone, 30mg oral | | | oxycodone, 8mg oral | | | hydromorphone, fentanyl patch | | | 25mcg/hr, or equivalent dose of | | | another opioid], Recovery/Phase I | | + +---+ | | | + +---+ + +-------+ +--------+---+---+ | gabapentin (NEURONTIN) capsule | Given | 06/02/20 | 600 mg | | | | 600 mg 600 mg, Oral, ONCE, Fri | | 19 11:15 | | | | | 06/02/19 at 1115, For 1 dose, | | AM PST | | | | | Pre-op | | | | | | + +-------+ +--------+---+---+ +---+---+ | | | +---+---+ + +-------+ +--------+---+---+ | hydrocortisone (PF) | Given | 06/02/20 | 100 mg | | | | (solu-CORTEF) injection 100 mg | | 19 11:29 | | | | | 100 mg, Intravenous, ONCE, Fri | | AM PST | | | | | 06/02/19 at 1115, For 1 dose, Mix | | | | | | | with 2 mL sterile water to make | | | | | | | 50 mg/mL., Pre-op | | | | | | + +-------+ +--------+---+---+ + +---+ | | | + +---+ | HYDROmorphone (DILAUDID) | | | injection 0.2-0.6 mg 0.2-0.6 mg, | | | Intravenous, EVERY 5 MIN PRN, | | | Pain, Starting Wed06/02/19 at | | | 1410, First dose must be lowest | | | dose, can increase subsequent | | | doses by 0.2mg within dosing | | | range. If patient meets opioid | | | tolerant definition, can start | | | with 0.4mg dose. [Maximum total | | | PACU dose 4mg] Use Pasero | | | Sedation Scale. [Opioid tolerant | | | = One week or longer, | | | gclxtu-uib-dlwfr use of at least | | | the following DAILY dose: 60mg | | | oral morphine, 60mg oral | | | hydrocodone, 30mg oral oxycodone, | | | 8mg oral hydromorphone, fentanyl | | | patch 25mcg/hr, or equivalent | | | dose of another opioid], | | | Recovery/Phase I | | + +---+ | | | + +---+ | labetalol (TRANDATE) 5 mg/mL | | | injection 5 mg 5 mg, | | | Intravenous, EVERY 5 MIN PRN, For | | | SBP > 180, DBP > 100, Starting | | | Wed06/02/19 at 1410, Hold if HR | | | < 60. Maximum total dose 300mg. | | | Notify anesthesia if patient | | | requires more than 50mg., | | | Recovery/Phase I | | + +---+ | | | + +---+ + +---------+ +--------+-------+---+ | lactated ringers (LR) infusion | New Bag | 06/02/20 | 1,000 | 100 | | | at 10-100 mL/hr, Intravenous, | | 19 11:16 | mLs | mL/hr | | | CONTINUOUS, Starting Wed06/02/19 | | AM PST | | | | | at 1115, TKO., Pre-op | | | | | | + +---------+ +--------+-------+---+ +---+---+ | | | +---+---+ + +-------+ +-------+---+---+ | metoclopramide (REGLAN) 5 mg/mL | Given | 06/02/20 | 10 mg | | | | injection 10 mg 10 mg, | | 19 4:50 | | | | | Intravenous, ONCE, Wed06/02/19 | | PM PST | | | | | at 1700, For 1 dose, Protect from | | | | | | | light., Post-op/Phase II | | | | | | + +-------+ +-------+---+---+ + +---+ | | | + +---+ | ondansetron (ZOFRAN ODT) | | | disintegrating tablet 4 mg 4 mg, | | | Oral, EVERY 6 HOURS PRN, Nausea, | | | Vomiting, Starting Wed06/02/19 | | | at 1545, First line agent, | | | Post-op/Phase II | | + +---+ | | | + +---+ | ondansetron (ZOFRAN) injection | | | 4 mg 4 mg, Intravenous, ONCE | | | PRN, Nausea, Starting Wed | | | 06/02/19 at 1410, For 1 dose, | | | Recovery/Phase I | | + +---+ | | | + +---+ + +-------+ +------+---+---+ | ondansetron (ZOFRAN) injection | Given | 06/02/20 | 4 mg | | | | 4 mg 4 mg, Intravenous, EVERY 6 | | 19 4:16 | | | | | HOURS PRN, Nausea, Vomiting, | | PM PST | | | | | Starting Wed06/02/19 at 1545, | | | | | | | First line agent. Use PO option | | | | | | | unless NPO status or unable to | | | | | | | tolerate., Post-op/Phase II | | | | | | + +-------+ +------+---+---+ + +---+ | | | + +---+ | ropivacaine (NAROPIN) 2 mg/mL | | | (0.2%) 48.7 mL with EPINEPHrine 1 | | | mg/mL 0.3 mg, ketorolac | | | (TORADOL) 30 mg/mL 30 mg Optesia | | | Mixture Infiltration, [employer], | | | Starting Wed06/02/19 at 1241, | | | For 1 dose, Pre-op | | + +---+ | | | + +---+ documented in this encounter
--- OUTSIDE RECORDS SUMMARY | ~2020-01-04 | XMS | Encounter Summary ---
Demographics + + + | Address | [address] | | | [place] [address] | + + + | Home Phone | | + + + | Preferred Language | Unknown | + + + | Marital Status | | + + + | Hoahaoism Affiliation | 1027 | + + + | Race | Unknown | + + + | Ethnic Group | Unknown | + + + Author + + + | Author | [facility] | | | and [place] | + + + | Organization | [facility] | | | [...] [place], | | | | | [place] [address] | | + + + + + | Ryan Vogt | ECON | Unknown | | + + + + + | Rob Vogt | ECON | Unknown | | + + + + + Care Team Providers + +------+ + | Care Clinical Nurse Occupational Medicine Name | Role | Phone | + +------+ + | Abrahan Samaniego MD | PCP | | + +------+ + Reason for Visit +--------+--------+ + | Reason | Onset | Comments | | | Date | | +--------+--------+ + | Other | 08/20/ | Full body scan? | | | 2019 | | +--------+--------+ + Encounter Details +--------+ + + + + | Date | Type | Department | Care Team | Description | +--------+ + + + + | 08/20/ | Telephone | [facility] | Cheryl Zee MD | Other (Full body | | 2019 | | [facility] [place] | [address] [place] | scan?) | | | | ENDOCRINOLOGY [address] | [address] [place] | | | | | [address] [place] [address] | [phone] | | | | | [place] | | | | | | [address] | | | | | | [phone] | | | +--------+ + + + [...] this encounter Miscellaneous Notes Telephone Encounter - Liz Hirsch CMA - 08/22/2019 10:33 AM PDTCalled LMOR per Dr. Zee orders are in [facility] and they can see them.Electronically signed by Liz Hirsch CMA at 2019 10:34 AM PDTTelephone Encounter - Liz Hirsch CMA - 08/21/2019 3:00 PM PDTI was dc g to print and fax this order. Is it the one from almost a year ago? elephone Encounter - Sasha Patino - 2:38 PM PDT Patient is calling about labs/imaging. Okay to leave detailed message: Yes Calling for orders: [facility] [place] Comment: Patient was told that a bone scan would be ordered for her. She wasn't sure if it was supposed to be a full body scan. She is asking that it be sent to [facility] in [facility]. She would like to get it done this week if possible. Mychart: ACTIVATED PCP: Abrahan Samaniego MD Future Appointments: Future Appointments Date Time Provider Department Center 11/17/2019 2:30 PM Cheryl Zee MD [facility] None 04/29/2020 1:30 PM Abrahan Samaniego MD [facility] 07/25/2020 1:30 [address] [facility] documented in this en counter Plan of Treatment +--------+---------+ + + + [...] | | | | | | [place] [address] | | | | | | [phone] | | | | | | | | +--------+---------+ + + + | 09/03/ | Office | Endocrinology | Cosma, Cheryl, MD | | | 2020 | Visit | | [address] | | | | | | [address] [place] | | | | | | [address] | | | | | | | | +--------+---------+ + + + documented as of this encounter Visit Diagnoses Not on filedocumented in this encounter"
--- OUTSIDE RECORDS SUMMARY | ~2020-01-04 | XMS | Encounter Summary ---
Demographics + + + | Address | [address] | | | [place] [address] | + + + | Home Phone | | + + + | Preferred Language | Unknown | + + + | Marital Status | | + + + | Sikhism Affiliation | 1027 | + + + | Race | Unknown | + + + | Ethnic Group | Unknown | + + + Author + + + | Author | [facility] | | | and [place] | + + + | Organization | [facility] | | | [...] [place], | | | | | [place] [address] | | + + + + + | Ryan Vogt | ECON | Unknown | | + + + + + | Rob Vogt | ECON | Unknown | | + + + + + Care Team Providers + +------+ + | Care Wax Pattern Repairer Name | Role | Phone | + +------+ + | Abrahan Samaniego MD | PCP | | + +------+ + Reason for Visit + +--------+ + | Reason | Onset | Comments | | | Date | | + +--------+ + | Appointment | 12/01/ | ED follow up 2- 3 days | | | 2015 | | + +--------+ + Encounter Details +--------+ + + + + | Date | Type | Department | Care Team | Description | +--------+ + + + + | 12/01/ | Telephone | [facility] | Abrahan Samaniego MD | Appointment (ED | | 2015 | | MEDICINE [address] | [address] [facility] | follow up 2- 3 days) | | | | [place], | [place] | | | | | [place] [address] | [address] | | | | | [phone] | | | +--------+ + + + [...] Telephone Encounter - Christina Wilson LPN - 12/03/2015 8:07 AM PDTContacted and scheduled . elephone Encounter - Christina Wilson LPN - 12/02/2015 4:54 PM PDTTo front end loader driver to contact and schedule for @ 0900 elephon e Encounter - Nini Martinez - 12/02/2015 4:41 PM PDTContact/Caller: patient/ [place] Contact Number: [phone] Provider/Nurse: Dr. Samaniego/ Christina Reason for Call: patient called in to scheduled ED Follow Up appointment for 2-3 days. Last Appointment: 06-27-2015 Next Appointment: NONE documented in this enco unter Plan of Treatment +--------+---------+ + + + | Date | Type | Specialty | Care Team | Description | +--------+---------+ + + + | 04/29/ | Office | Internal Medicine | Abrahan Samaniego MD | | | 2019 | Visit | | [address] | | | | | | [place] | | | | | | [address] | | | | | | | | +--------+---------+ + + + | 07/25/ | Office | Cardiology | Renetta, | | | 2020 | Visit | | P[facility] | | | | | | [place], | | | | | | [place] [address] | | | | | | [phone] | | | | | | | | +--------+---------+ + + + | 09/03/ | Office | Endocrinology | Cheryl Zee MD | | | 2020 | Visit | | [address] [place] | | | | | | [address] [place] | | | | | | [phone] | | | | | | | | +--------+---------+ + + + documented as of this encounter Visit Diagnoses Not on filedocumented in this encounter"
--- OUTSIDE RECORDS SUMMARY | ~2020-01-04 | XMS | Encounter Summary ---
Demographics + + + | Address | [address] | | | [place] [address] | + + + | Home Phone | | + + + | Preferred Language | Unknown | + + + | Marital Status | | + + + | Bahai Affiliation | 1027 | + + + | Race | Unknown | + + + | Ethnic Group | Unknown | + + + Author + + + | Author | [facility] | | | and [place] | + + + | Organization | [facility] | | | [...] [place], | | | | | [place] [address] | | + + + + + | Ryan Vogt | ECON | Unknown | | + + + + + | Rob Vogt | ECON | Unknown | | + + + + + Care Team Providers + +------+ + | Care Psychiatric Np Name | Role | Phone | + +------+ + | Abrahan Samaniego MD | PCP | | + +------+ + Reason for Visit + + + | Reason | Comments | + + + | Growth Hormone | Follow Up | | Deficiency | | + + + | Other | Secondary hyperparathyroidism Follow Up | + + + Evaluate & Treat (Urgent) +--------+ + + + + + | Status | Reason | Specialty | Diagnoses / | Referred By | Referred To | | | | | Procedures | Contact | Contact | +--------+ + + + + + | Closed | Specialty | Endocrinology | Diagnoses | [place], | [place] | | | Services | | | Abrahan Cortez MD | MD Cheryl | | | Required | | Hyperparathy | [address] | [address] | | | | | roidism | [address]RE[address] | [place] [address] | | | | | (HCC) | [place], | [place] | | | | | Osteoporosis | [place] [address] | [address] Phone: | | | | | , | Phone: | [phone] | | | | | unspecified | [phone] | Fax: | | | | | osteoporosis | Fax: | [phone] | | | | | type, | [phone] | | | | | | unspecified | | | | | | | pathological | | | | | | | fracture | | | | | | | presence | | | | | | | Panhypopitui | | | | | | | tarism ([facility]) | | | +--------+ + + + + + Encounter Details +--------+---------+ + + + | Date | Type | Department | Care Team | Description | +--------+---------+ + + + | 05/10/ | Office | [facility] | Cheryl Zee MD | Hypopituitarism | | 2019 | Visit | [place] | [address] [place] | (HCC) (Primary Dx); | | | | ENDOCRINOLOGY [address] | [address] [place] | Secondary | | | [address] [place] [address] | [address] | hypothyroidism; | | | | [place] | | Secondary adrenal | | | | [address] | | insufficiency ([facility]); | | | | [phone] | | Growth hormone | | | | | | deficiency ([facility]); | | | | | | Secondary | | | | | | hyperparathyroidism | | | | | | ([facility]) | +--------+---------+ + + + Social History [...] + + + | Blood Pressure | 128/56 | 05/10/2019 1:09 PM | | | | | PST | | + + + + + | Pulse | 77 | 05/10/2019 1:09 PM | | | | | PST | | + + + + + | Temperature | - | - | | + + + + + | Respiratory Rate | - | - | | + + + + + | Oxygen Saturation | 98% | 05/10/2019 1:09 PM | | | | | PST | | + + + + + | Inhaled Oxygen | - | - | | | Concentration | | | | + + + + + | Weight | 71.4 kg (157 lb 6.4 | 05/10/2019 1:09 PM | | | | oz) | PST | | + + + + + | Height | 160.5 cm (5' 3.19") | 05/10/2019 1:09 PM | | | | | PST | | + + + + + | Body Mass Index | 27.72 | 05/10/2019 1:09 PM | | | | | PST | | + + + + + documented in this encounter Patient Instructions Patient Instructions Cheryl Zee MD - 05/10/2019 1:10 PM PSTEase continue same meds in cluding [facility] Make sure you get about 1000 mg calcium from diet or pill, continue same vit D Lest get labs and if ok, lets try Reclast yearly infusion for osteoporosis Zoledronic Acid injection (Paget's Disease, Osteoporosis) Brand Names: Reclast, Zometa What is this medicine? ZOLEDRONIC ACID (SYLVIA castillo ik id) lowers the amount of calcium loss from bone. It is u sed to treat Paget's disease and osteoporosis in women. How should I use this medicine? This medicine is for infusion into a vein. It is given by a health healthcare management consultant in a h ospital or clinic setting. Talk to your timber bucker regarding the use of this medicine in children. This medicine is not approved for use in children. What side effects may I notice from receiving this medicine? Side effects that you should report to your doctor or health healthcare management consultant as soon as p ossible: allergic reactions like skin rash, itching or hives, swelling of the face, lips, or tong ue anxiety, confusion, or depression breathing problems changes in vision eye pain feeling faint or lightheaded, falls jaw pain, especially after dental work mouth sores muscle cramps, stiffness, or weakness redness, blistering, peeling or loosening of the skin, including inside the mouth trouble passing urine or change in the amount of urine Side effects that usually do not require medical attention (report to your doctor or health healthcare management consultant if they continue or are bothersome): bone, joint, or muscle pain constipation diarrhea fever hair loss irritation at site where injected loss of appetite nausea, vomiting stomach upset trouble sleeping trouble swallowing weak or tired What may interact with this medicine? certain antibiotics given by injection NSAIDs, medicines for pain and inflammation, like ibuprofen or naproxen some diuretics like bumetanide, furosemide teriparatide What if I miss a dose? It is important not to miss your dose. Call your doctor or health healthcare management consultant if you are unable to keep an appointment. Where should I keep my medicine? This drug is given in a hospital or clinic and will not be stored at home. What should I tell my health care provider before I take this medicine? They need to know if you have any of these conditions: aspirin-sensitive asthma cancer, especially if you are receiving medicines used to treat cancer dental disease or wear dentures infection kidney disease low levels of calcium in the blood past surgery on the parathyroid gland or intestines receiving corticosteroids like dexamethasone or prednisone an unusual or allergic reaction to zoledronic acid, other medicines, foods, dyes, or pre servatives or trying to get breast-feeding What should I watch for while using this medicine? Visit your doctor or health healthcare management consultant for regular checkups. It may be some time bef ore you see the benefit from this medicine. Do not stop taking your medicine unless your doc tor tells you to. Your doctor may order blood tests or other tests to see how you are doing. Women should inform their doctor if they wish to become or think they might be pre gnant. There is a potential for serious side effects to an unborn child. Talk to your health healthcare management consultant or pharmacist for more information. You should make sure that you get enough calcium and vitamin D while you are taking this me dicine. Discuss the foods you eat and the vitamins you take with your health care profession al. Some people who take this medicine have severe bone, joint, and/or muscle pain. This medici ne may also increase your risk for jaw problems or a broken thigh bone. Tell your doctor rig ht away if you have severe pain in your jaw, bones, joints, or muscles. Tell your doctor if you have any pain that does not go away or that gets worse. Tell your dentist and dental surgeon that you are taking this medicine. You should not have major dental surgery while on this medicine. See your dentist to have a dental exam and fix any dental problems before starting this medicine. Take good care of your teeth while on th is medicine. Make sure you see your dentist for regular follow-up appointments. NOTE:This sheet is a summary. It may not cover all possible information. If you have questi ons about this medicine, talk to your doctor, pharmacist, or health care provider. Copyright 2019 [employer] documented in this encounter Progress Notes Cheryl Zee MD - 05/10/2019 1:10 PM PST Patient Name: Oliva Vogt : 1950 Age: 69 y.o. Sex: female Referring Provider: Abrahan Samaniego MD PCP: Abrahan Samaniego MD Date of Service: 05/10/2019 Chief Complaint Patient presents with Growth Hormone Deficiency Follow Up Other Secondary hyperparathyroidism Follow Up History of presenting illness Oliva Vogt is a 69 y.o. female who presents for Growth Hormone Deficiency (Foll ow Up ) and Other (Secondary hyperparathyroidism Follow Up) She is here for a follow-up of growth hormone treatment. She started human growth hormone in October 2018 in form of Omnitrope 0.3 mg daily. She thinks she feelsbetter on growth hormone, stronger and more active. She is working; he walks a quarter of a mile every day. She continues to take vitamin D and she gets calcium from the diet Has not received yet osteoporosis treatment She would like to continue growth hormone therapy , also feels that prednisone 6 mg daily w orks better for her. Does get heartburn if she does not take prednisone with food MRI pituitary reviewed: 03/08/2019 3:08 PM IMPRESSION - No suspicious nodules/mass or other suspicious soft tissue thickening or enhancement involving the pituitary or sella turcica. Normal T1 posterior pituitary bright spot. Flattening and only a small diminutive size of the residual pituitary gland in this patient with panhypopituitarism. Stable 5 mm right dural based mass in the falx cerebri suspicious for a small meningioma. Mild stable atrophy. She still has mild diplopia- intermittent, lasting seconds. She had ophthalmology visit, no abnormality was found and visual field testing was planned and she saw her primary care doc dioni. She had cardiovascular evaluation because she has chest pain and SOB when walking to go to work; mild coronary artery disease with normal ejection fraction was found after she had an angiogram and cardiac echo; she told she may have had cardiovascular spasm. She was advised to continue high potency statin. She has hypertension and she takes low-dose amlodipine. She reports weight gain, leg swelling, easy bruising and tinnitus; no headaches. She completed multiple tests and we reviewed the results Test results reviewed February 2019 potassium 3.9 creatinine 1.05 January 17, 2019 normal liver test LDL cholesterol 70 January 10, 2019 vitamin D normal at 56 phosphorus 3.1 IGF-I 77 free T4 1.3 calcium 9.5 Album in 3.9 GFR 46 with creatinine 1.16 August 22, 2018 urinary calcium was 316/20 4 hours. LDL 103 prolactin 1.9 IGF-I 31 potassi um 3.5 liver test normal free T4 1 TSH 0.05 celiac screen negative PTH 78 vitamin D 38 potas sium 2.5 calcium 9.8 albumin 4.2 Reports she takes 500 mg of calcium and 1000 units of vitamin D;she works part-time,she admits to personal stress after her August 2018 after prolonged illness. SHe is very compliant with levothyroxine 100 mcg daily and prednisone 6 mg daily.She ad mits that she is always thirsty and she drinks a lot of water. She has history of Guero syndrome,diagnosed in April 1973.She has been long-term on multiple hormone replacements including prednisone,levothyroxine,estrogen replacemen t until her late 40s as well.She was never on growth hormone therapy but she did have te sting showing growth hormone deficiency. The patient was diagnosed with osteopeniadue to BMD. Patient had last DXA on: December 2018 showing osteoporosis with a low score at the femoral neck T score -2.7, read as s table compared with previous result 08/2017, which showed lowest score atfemoral neck: T-score -2.4Z-score -0.8; The patient hasnohistory of fragility fracture. The patient hasnoloss of height over time . The patient exercises-walking, less recently because of illness, other family iss ues (son sick with recent paralysis due to spine abscess). The patient ambulatesWith no problems. The patient hasnoAvailable Xrays, she denies back pain Patient takesonecalcium pill with magnesiumand 2,000 IUvitamin D Daily- started l ast week. Dairy intake isone serving daily. Medications affecting bone healthy such as steroids, anticonvulsantsprednisone 5 mg daily . Family history of osteoporosis isnone. Patient hasnohistory of nephrolithiasis. Patient hasnohistory of gastrointestinal surgery, diarrhea, malabsorption. Patient hasnoweight changes. Patient doesnosmoke and does nodrink alcohol, noexcessive coffee. 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 The patient hasnohyperthyroidism, norheumatoid arthritis; she takes levothyroxine 100 mcg daily. She had episode of adrenal insufficiency requiring hospital visit few years ago, presented with fever, low BP. Has Medic Alert ID, she knows the rules of stress dose steroids. The patient hasnopast treatment of osteoporosis . Problem List Growth hormone deficiency Hypopituitarism Overview Due to Guero sd Secondary adrenal insufficiency Secondary hyperparathyroidism Secondary hypothyroidism ROS Past Medical History: Diagnosis Date Adrenal insufficiency [...] CV LHC; Surgeon: Benigno Deras MD; Location: [facility] CV LAB CHOLECYSTECTOMY COLONOSCOPY 03/12/2014 COLONOSCOPY; Laterality: N/A; Surgeon: Shaji Thornton MD; Location: [facility] MEDICAL PROCEDU RE UNIT CYST REMOVAL Left 1970 ENDOMETRIAL BIOPSY 2006 Benign Skull Biopsy 09/28/2011 (Benign) TUBAL LIGATION Bilateral Social and Personal History: Social History Tobacco Use Smoking status: Never Smoker Smokeless tobacco: Never Used Substance Use Topics Alcohol use: No Drug use: No Family History Problem Relation Age of Onset High blood pressure Mother 84 of Aortic dissection Other (see comment) Father 74 of hemorrgagic CVA Stroke Father Arthritis Father Lung cancer Maternal Grandfather Abdominal aortic aneurysm Brother Lung cancer Sister Breast cancer Sister Medications Current Outpatient Medications Medication Sig Dispense Refill amLODIPine (NORVASC) 2.5 [...] MULTIVITAMIN PLUS) TABS Take by mouth Daily. OMNITROPE 5 MG/1.5ML SOLN potassium chloride (KLOR-CON) 10 mEq CR tablet take 1 tablet by mouth once daily 90 tab let 3 predniSONE (DELTASONE) 1 mg tablet One daily for total 6 mg daily (Patient taking diffe rently: Take 5 mg by mouth Daily. One daily for total 6 mg daily) 90 tablet 4 predniSONE (DELTASONE) 5 mg tablet take 1 tablet by mouth daily MOST DAYS INCREASE TO 3 tablets daily for 3 days WHEN SICK 120 tablet 1 Somatropin (OMNITROPE) 5.8 MG SOLR Inject 0.3 mg under the skin Daily. 5 each 2 No current facility-administered medications for this visit. Allergies Allergies Allergen Reactions Succinylcholine Chloride Other (See Comments) Hard to wake up Labs review Recent Labs 02/09/19 1613 01/17/19 1454 01/10/19 0804 NA 140 -- 143 K 3.9 -- 3.7 CO2 26 -- 27 BUN 16 -- 17 CREA 1.05* -- 1.16* GLU 131* -- 85 BILITOT -- 0.7 0.7 AST -- 23 20 ALT -- 33 37 ALKPHOS -- 76 72 TSH -- -- 0.01* Hematology: Recent Labs 11/10/18 1116 HGB 14.3 HCT 43.1 WBC 8.1 PLT 296 NEUPCT 49.7 TSH Date Value Ref Range Status 01/10/2019 0.01 (L) 0.55 - 4.78 uIU/mL Final 08/16/2018 0.05 (L) 0.55 - 4.78 uIU/mL Final 08/18/2014 0.04 (L) 0.34 - 5.60 uIU/mL Final Comment: All TSH samples are screened using a 2nd Generation test, and are reflexed to a 3rd Gener ation test if indicated. Physical Examination BP supine: 138/73 HR supine: 80 BP sittin/85 HR sittin BP standin/87 HR standin Vs: BP 128/56 | Pulse 77 | Ht 1.605 m (5' 3.19") | Wt 71.4 kg (157 lb 6.4 oz) | SpO2 9 8% | BMI 27.72 kg/m General: Well-developed and well-nourished, in no acute distress. SKIN Normal temperature, No rashes. Eyes: PERRLA, EOMI Neck: Normal appearing. Trachea is midline. Thyroid small. No discrete nodules. Lymphatic: No cervical, supraclavicular or submandibular lymphadenopathy. Cadiovascular: S1S2 RRR, no M/R/G. No peripheral edema. Respiratory: Normal respiratory effort. Normal breath sound bilaterally. No wheezing, rhon chi or crackles. Abdomen: Abdomen is soft and non-tender. No hepatosplenomegaly or mass. EXTREMITIES: no cyanosis, clubbing or edema. Neurological: Cranial nerves III-XII grossly intact. DTR 2+. Psychiatric: Patient is alert, awake and oriented times 3. Normal judgment and insight. Assessment & Plan 1. Hypopituitarism (HCC) 2. Secondary hypothyroidism 3. Secondary adrenal insufficiency (HCC) 4. Growth hormone deficiency (HCC) 5. Secondary hyperparathyroidism (HCC) Patient with panhypopituitarism currently on growth hormone replacement, thyroid replacemen t and adrenal replacement tolerating all these medications well with good response. She fee ls well feels that growth hormone treatment helps her overall wellbeing. We will continue the same hormone replacement. We discussed today osteoporosis treatment. I advised treatment with Reclast IV, I was conc erned about worsening heartburn with alendronate considering she already has this problem wh en taking prednisone. We discussed risk and benefits of osteoporosis treatment including, potential risk of ONJ a nd AFF. I gave handout. We will check calcium and vitamin D also she is due for IGF-I level If tests normal she may have Reclast with the local clinic and I will contact Dr. Samaniego i nquire whether Reclast can be given through his office. Return in 6 months No notes on file Cheryl Zee MD on 05/10/2019 at 1:23 PM documented in this enc ounter Plan of Treatment +--------+---------+ + + + | Date | Type | Specialty | Care Team | Description | +--------+---------+ + + + | 04/29/ | Office | Internal Medicine | Abrahan Samaniego MD | | | 2019 | Visit | | [address] | | | | | | [place] | | | | | | [address] | | | | | | | | +--------+---------+ + + + | 07/25/ | Office | Cardiology | Renetta, | | | 2020 | Visit | | [facility] [address] | | | | | | [place], | | | | | | [place] [address] | | | | | | [phone] | | | | | | | | +--------+---------+ + + + | 09/03/ | Office | Endocrinology | Cheryl Zee MD | | | 2020 | Visit | | [address] | | | | | | [address] [place] | | | | | | [phone] | | | | | | | | +--------+---------+ + + + documented as of this encounter Results Insulin-Like Growth Factor 1 (05/10/2019 2:19 PM PST) + + + + + + | Component | Value | Ref Range | Performed | Pathologist | | | | | At | Signature | + + + + + + | Insulin-lik | 73Comment: Performed | 38 - 163 ng/mL | [facility] | | | e growth | At: [facility] | | [facility] | | | factor 1 | [id number] [place] | | HEART | | | | [address] [place], [place] | | MEDICAL | | | | [phone] | | CENTER | | | | MD Ph:[phone] | | LABORATORY | | | | | | [place] | | + + + + + + + + | Specimen | + + | Blood specimen | | (specimen) | + + + + + + + | Performing | Address | City/State/Zipcode | Phone Number | | Organization | | | | + + + + + | [facility] | [address] | [place] [address] | | | [facility] | | | | | [place] | | | | + + + + + T4, Free (05/10/2019 2:19 PM PST) + + + + -+ + | Component | Value | Ref Range | Performed | Pathologist | | | | | At | Signature | + + + + -+ + | FT4 | 1.45Comment: Performed | 0.70 - 1.50 | [facility] | | | | by [facility] [address], | ng/dL | [facility] | | | | [place], [place] | | HEART | | | |Performed by [facility] [address], [place], [place] | | MEDICAL | | | | | | CENTER | | | | | | LABORATORY | | | | | | [facility] | | + + + + -+ + + + | Specimen | + + | Blood specimen | | (specimen) | + + + + + + + | Performing | Address | City/State/Zipcode | Phone Number | | Organization | | | | + + + + + | [facility] | [address] | [place], [place] | | | [facility] | | | | | LABORATORY [facility] | | | | + + + + + Vitamin D, Deficiency Screen (25-Hydroxy) (05/10/2019 2:19 PM PST) + + + + + + | Component | Value | Ref Range | Performed | Pathologist | | | | | At | Signature | + + + + + + | Vitamin D, | 24.6 (L)Comment: | 30.0 - 100.0 | [facility] | | | 25 Hydroxy | Performed by [facility] [address] | ng/mL | [facility] | | | | [address] [place] | | HEART | | | | [address] | | MEDICAL | | | | | | CENTER | | | | | | LABORATORY | | | | | | [facility] | | + + + + + + + + | Specimen | + + | Blood specimen | | (specimen) | + + + + + + + | Performing | Address | City/State/Zipcode | Phone Number | | Organization | | | | + + + + + | [facility] | [address] | [place] [address] | | | [facility] | | | | | [place] | | | | + + + + + Phosphorus (05/10/2019 2:19 PM PST) + + + +-------- -----+ + | Component | Value | Ref Range | Perform ed | Pathologist | | | | | At | Signature | + + + +-------- -----+ + | Phosphorus | 4.1Comment: Performed | 2.6 - 4.4 mg/dL | [facility] | | | | by [facility] [address], | | [facility] | | | | [place] [address] | | HEART | | | |Performed by [facility] [address], [place] [address] | | MEDICAL | | | | | | CENTER | | | | | | LABORAT [place] | | | | | | [facility] | | + + + +-------- -----+ + + + | Specimen | + + | Blood specimen | | (specimen) | + + + + + + + | Performing | Address | City/State/Zipcode | Phone Number | | Organization | | | | + + + + + | [facility] | [address] | [place] [address] | | | [facility] | | | | | LABORAT[facility] | | | | + + + + + Comprehensive Metabolic Panel (05/10/2019 2:19 PM PST) + + + + + + | Component | Value | Ref Range | Performed | Pathologist | | | | | At | Signature | + + + + + + | Na | 145 | 135 - 145 | [facility] | | | | | mmol/L | [facility] | | | | | | HEART | | | | | | MEDICAL | | | | | | CENTER | | | | | | LABORATORY | | | | | | [facility] | | + + + + + + | K | 4.1 | 3.5 - 5.0 | [facility] | | | | | mmol/L | [facility] | | | | | | HEART | | | | | | MEDICAL | | | | | | CENTER | | | | | | LABORATORY | | | | | | [facility] | | + + + + + + | Cl | 112 (H) | 99 - 109 mmol/L | [facility] | | | | | | [facility] | | | | | | HEART | | | | | | MEDICAL | | | | | | CENTER | | | | | | LABORATORY | | | | | | [facility] | | + + + + + + | CO2 | 27 | 21 - 28 mmol/L | [facility] | | | | | | [facility] | | | | | | HEART | | | | | | MEDICAL | | | | | | CENTER | | | | | | LABORATORY | | | | | | [facility] | | + + + + + + | Calcium | 9.6 | 8.5 - 10.2 | [facility] | | | | | mg/dL | [facility] | | | | | | HEART | | | | | | MEDICAL | | | | | | CENTER | | | | | | LABORATORY | | | | | | [facility] | | + + + + + + | Anion Gap | 6 | 5 - 16 mmol/L | [facility] | | | | | | [facility] | | | | | | HEART | | | | | | MEDICAL | | | | | | CENTER | | | | | | LABORATORY | | | | | | [facility] | | + + + + + + | Albumin | 3.9 | 3.3 - 4.8 g/dL | [facility] | | | | | | [facility] | | | | | | HEART | | | | | | MEDICAL | | | | | | CENTER | | | | | | LABORATORY | | | | | | [facility] | | + + + + + + | BUN | 20 | 8 - 25 mg/dL | [facility] | | | | | | [facility] | | | | | | HEART | | | | | | MEDICAL | | | | | | CENTER | | | | | | LABORATORY | | | | | | [facility] | | + + + + + + | Creatinine | 0.98 | 0.50 - 1.00 | [facility] | | | | | mg/dL | [facility] | | | | | | HEART | | | | | | MEDICAL | | | | | | CENTER | | | | | | LABORATORY | | | | | | [facility] | | + + + + + + | Glucose | 106 (H) | 65 - 99 mg/dL | [facility] | | | | | | [facility] | | | | | | HEART | | | | | | MEDICAL | | | | | | CENTER | | | | | | LABORATORY | | | | | | [facility] | | + + + + + + | Total | 6.1 | 6.1 - 7.8 g/dL | [facility] | | | Protein | | | [facility] | | | | | | HEART | | | | | | MEDICAL | | | | | | CENTER | | | | | | LABORATORY | | | | | | [facility] | | + + + + + + | Alkaline | 110 | 35 - 115 U/L | [facility] | | | Phosphatase | | | [facility] | | | | | | HEART | | | | | | MEDICAL | | | | | | CENTER | | | | | | LABORATORY | | | | | | [facility] | | + + + + + + | ALT | 36 | 10 - 65 U/L | [facility] | | | | | | [facility] | | | | | | HEART | | | | | | MEDICAL | | | | | | CENTER | | | | | | LABORATORY | | | | | | [facility] | | + + + + + + | AST | 27 | 10 - 45 U/L | [facility] | | | | | | [facility] | | | | | | HEART | | | | | | MEDICAL | | | | | | CENTER | | | | | | LABORATORY | | | | | | [facility] | | + + + + + + | Bilirubin | 0.5 | 0.2 - 1.1 mg/dL | [facility] | | | Total | | | [facility] | | | | | | HEART | | | | | | MEDICAL | | | | | | CENTER | | | | | | LABORATORY | | | | | | [facility] | | + + + + + + | Estimated | 59 (L)Comment: eGFR<60 | >=90 | [facility] | | | GFR | consistent with impaired | mL/min/1.73m2 | [facility] | | | | kidney function.For | | HEART | | | | Americans, | | MEDICAL | | | | multiply the calculated | | CENTER | | | | GFR by 1.210Performed by | | LABORATORY | | | | [facility] [address], | | [place] | | | | [place] [address] | | | | + + + + + + + + | Specimen | + + | Blood specimen | | (specimen) | + + + + + + + | Performing | Address | City/State/Zipcode | Phone Number | | Organization | | | | + + + + + | [facility] | [address] | [place] [address] | | | [facility] | | | | | LABORAT[facility] [place] | | | | + + + + + documented in this encounter Visit Diagnoses + + | Diagnosis | + + | Hypopituitarism (HCC) - Primary Panhypopituitarism | + + | Secondary hypothyroidism Other specified acquired hypothyroidism | + + | Secondary adrenal insufficiency (HCC) Glucocorticoid deficiency | + + | Growth hormone deficiency (HCC) Pituitary dwarfism | + + | Secondary hyperparathyroidism (HCC) Secondary hyperparathyroidism (of renal origin) | + + documented in this encounter
--- OUTSIDE RECORDS SUMMARY | ~2020-01-04 | XMS | Encounter Summary ---
Demographics + + + | Address | [address] | | | [place] [address] | + + + | Home Phone | | + + + | Preferred Language | Unknown | + + + | Marital Status | | + + + | Restoration Affiliation | 1027 | + + + | Race | Unknown | + + + | Ethnic Group | Unknown | + + + Author + + + | Author | [facility] | | | and [place] | + + + | Organization | [facility] [place] | | | [...] [place], | | | | | [place] [address] | | + + + + + | Ryan Vogt | ECON | Unknown | | + + + + + | Rob Vogt | ECON | Unknown | | + + + + + Care Team Providers + +------+ + | Care Hand Clerical Verifier Name | Role | Phone | + +------+ + | Abrahan Samaniego MD | PCP | | + +------+ + Encounter Details +--------+ + + + + | Date | Type | Department | Care Team | Description | +--------+ + + + + | 04/13/ | Orders Only | [facility] | Eugene Watkins | Complex tear of | | 2018 | | ORTHOPEDIC SURGERY | MD Fady [address] | medial meniscus of | | | | [address] | [place] | right knee as | | | | [place] | [address] | current injury, | | | | [address] | | initial encounter | | | | [phone] | | (Primary Dx); Right | | | | | | knee pain, | | | | | | unspecified | | | | | | chronicity; Acute | | | | | | pain of right knee | +--------+ + + + + Social [...] [place] | | | | | | [id number] | | | | | | | | +--------+---------+ + + + | 07/25/ | Office | Cardiology | Renetta, | | | 2020 | Visit | | PARKER Harris [address] | | | | | | [place] | | | | | | [place] [address] | | | | | | [phone] | | | | | | | | +--------+---------+ + + + | 09/03/ | Office | Endocrinology | Cheryl Zee MD | | | 2020 | Visit | | [address] | | | | | | [address] [place], [place] | | | | | | [address] | | | | | | | | +--------+---------+ + + + documented as of this encounter Visit Diagnoses + + | Diagnosis | + + | Complex tear of medial meniscus of right knee as current injury, initial encounter - | | Primary | + + | Right knee pain, unspecified chronicity | + + | Acute pain of right knee | + + documented in this encounter"
--- OUTSIDE RECORDS SUMMARY | ~2020-01-04 | XMS | Encounter Summary ---
Demographics + + + | Address | [address] | | | [place] [address] | + + + | Home Phone | | + + + | Preferred Language | Unknown | + + + | Marital Status | | + + + | Oriental Orthodox Affiliation | 1027 | + + + | Race | Unknown | + + + | Ethnic Group | Unknown | + + + Author + + + | Author | [facility] | | | and [place] | + + + | Organization | [facility] [place] | | | [...] [place], | | | | | [place] [address] | | + + + + + | Ryan Vogt | ECON | Unknown | | + + + + + | Rob Vogt | ECON | Unknown | | + + + + + Care Team Providers + +------+ + | Care Shirt Ironer Name | Role | Phone | + +------+ + PCP | Unavailable | + +------+ + Encounter Details +--------+ + + + + | Date | Type | Department | Care Team | Description | +--------+ + + + + | 07/03/ | Hospital | [facility] | Ifeanyi Romo, | | | 2006 | Encounter | [facility] | [address] | | | | | [address] | [place] | | | | | [place] | [address] | | | | | [address] | | | | | | [phone] | | | +--------+ + + + [...] [place] | | | | | | [address] | | | | | | | | +--------+---------+ + + + | 07/25/ | Office | Cardiology | Renetta | | | 2020 | Visit | | [address] | | | | | | [place], | | | | | | [place] [address] | | | | | | [phone] | | | | | | | | +--------+---------+ + + + | 09/03/ | Office | Endocrinology | Cheryl Zee MD | | | 2020 | Visit | | [address] | | | | | | [address] [place] | | | | | | [address] | | | | | | | | +--------+---------+ + + + documented as of this encounter Visit Diagnoses Not on filedocumented in this encounter"
--- OUTSIDE RECORDS SUMMARY | ~2020-01-04 | XMS | Encounter Summary ---
Demographics + + + | Address | [address] | | | [place] [address] | + + + | Home Phone | | + + + | Preferred Language | Unknown | + + + | Marital Status | | + + + | Sikh Affiliation | 1027 | + + + | Race | Unknown | + + + | Ethnic Group | Unknown | + + + Author + + + | Author | [facility] | | | and [place] | + + + | Organization | [facility] [place] | | [...] [place], | | | | | [place] [address] | | + + + + + | Ryan Vogt | ECON | Unknown | | + + + + + | Rob Vogt | ECON | Unknown | | + + + + + Care Team Providers + +------+ + | Care Thermodynamics Teacher Name | Role | Phone | + +------+ + | Abrahan Samaniego MD | PCP | | + +------+ + Reason for Visit + +--------+ + | Reason | Onset | Comments | | | Date | | + +--------+ + | ER Follow-up | 01/11/ | | | | 2019 | | + +--------+ + Encounter Details +--------+ + + + + | Date | Type | Department | Care Team | Description | +--------+ + + + + | 01/11/ | Telephone | [facility] | Abrahan Samaniego MD | ER Follow-up | | 2019 | | [address] | [address] [facility] | | | | | [place], | [place] | | | | | [place] [address] | [address] | | | | | [phone] | | | +--------+ + + + [...] this encounter Miscellaneous Notes Telephone Encounter - Harry Mark - 01/13/2019 10:42 AM PDTVoice message left for patient to return call to reschedule appointment to the 16. elephone Encounter - Christina Wilson LPN - 01/13/2019 9:11 AM PDTPatient will need to be rescheduled to the 16, in the afternoon- p lease contact to reschedule elephone Encounter - Eliz Perez RN - 01/11/2019 3:01 PM PDTLeft message on v [employer] mail to return call. Could schedule her in one of the nurse holds on 01/19 or 01/20/19.E lectronically signed by Eliz Perez RN at 01/11/2019 3:02 PM PDTTelephone Encounter - Mikki Ortega - 01/11/2019 2:22 PM PDTPatient was seen in the ER on 01/09/19 for "advers e effect of drug". Please advise where to schedule patient. documented in this encounter Plan of Treatment +--------+---------+ + + + | Date | Type | Specialty | Care Team | Description | +--------+---------+ + + + | 04/29/ | Office | Internal Medicine | Abrahan Samaniego MD | | | 2019 | Visit | | [address] | | | | | | [place] | | | | | | [address] | | | | | | | | +--------+---------+ + + + | 07/25/ | Office | Cardiology | Renetta, | | | 2020 | Visit | | P[address] | | | | | | [place], | | | | | | [place] [address] | | | | | | [phone] | | | | | | | | +--------+---------+ + + + | 09/03/ | Office | Endocrinology | Cheryl Zee MD | | | 2020 | Visit | | [address] | | | | | | [address] [place] | | | | | | [id number] | | | | | | | | +--------+---------+ + + + documented as of this encounter Visit Diagnoses Not on filedocumented in this encounter
--- OUTSIDE RECORDS SUMMARY | ~2020-01-04 | XMS | Encounter Summary ---
Demographics + + + | Address | [address] | | | [place] [address] | + + + | Home Phone | | + + + | Preferred Language | Unknown | + + + | Marital Status | | + + + | Congregation Affiliation | 1027 | + + + | Race | Unknown | + + + | Ethnic Group | Unknown | + + + Author + + + | Author | [facility] | | | and [place] | + + + | Organization | [facility] | | | [...] [place], | | | | | [place] [address] | | + + + + + | Ryan Vogt | ECON | Unknown | | + + + + + | Rob Vogt | ECON | Unknown | | + + + + + Care Team Providers + +------+ + | Care Swamper Name | Role | Phone | + +------+ + | Abrahan Samaniego MD | PCP | | + +------+ + Encounter Details +--------+ + + + + | Date | Type | Department | Care Team | Description | +--------+ + + + + | / | Hospital | [facility] | | | | 2011 | Encounter | [facility] | | | | | | [address] | | | | | | [place] | | | | | | [address] | | | | | | [phone] | | | +--------+ + + + [...] | Office | Internal Medicine | Abrahan Samanieog MD | | | 2019 | Visit [...] | | | | | | [place] [address] | | | | | | [phone] | | | | | | | [...] | + +--------+ + + + | TSH | Routin | 08/05/2011 | | Results for this | | | e | 12:17 PM | | procedure are in the | | | | PST | | results section. | + +--------+ + + + | T4, FREE | Routin | 08/05/2011 | | Results for this | | | e | 12:17 PM | | procedure are in the | | | | PST | | results section. | + +--------+ + + + | BASIC METABOLIC | Routin | 08/05/2011 | | Results for this | | PANEL | e | 12:17 PM | | procedure are in the | | | | PST | | results section. | + +--------+ + + + documented in this encounter Results TSH (08/05/2011 12:17 PM PST) + + + + + + | Component | Value | Ref Range | Performed | Pathologist | | | | | At | Signature | + + + + + + | TSH | 0.04 (L)Comment: @HAS | 0.34 - 5.60 | [facility] | | | | LTSH QC BEEN RUN? | uIU/mL | [facility] | | | | YESTesting performed on | | MEDICAL | | | | the [place] | | CENTER - | | | | Access Analyzer. | | LABORATORY | | + + + + + + + + | Specimen | + + | | + + + + + + + | Performing | Address | City/State/Zipcode | Phone Number | | Organization | | | | + + + + + | [facility] | [address] | [place] | [phone] | | [facility] | | [address] | | | - LABORATORY | | | | + + + + + | [facility] | [address] | [place] | | | [facility] | | [address], [facility] | | | - LABORATORY | | | | + + + + + T4, Free (08/05/2011 12:17 PM PST) + + + + + + | Component | Value | Ref Range | Performed | Pathologist | | | | | At | Signature | + + + + + + | FT4 | 1.04Comment: Testing | 0.61 - 1.12 | [facility] | | | | performed on the [facility] | ng/dL | [facility] | | | | [facility] [facility] | | MEDICAL | | | | Analyzer. | | CENTER - | | | | | | LABORATORY | | + + + + + + + + | Specimen | + + | | + + + + + + + | Performing | Address | City/State/Zipcode | Phone Number | | Organization | | | | + + + + + | [facility] | [address] | [place], [place] | [phone] | | [facility] | | [address] | | | - LABORATORY | | | | + + + + + | [facility] | [address] | [place], [place] | | | [facility] | | [address], [facility] | | | - LABORATORY | | | | + + + + + Basic Metabolic Panel (08/05/2011 12:17 PM PST) + + + + + + | Component | Value | Ref Range | Performed | Pathologist | | | | | At | Signature | + + + + + + | Glucose | 85 | 70 - 109 mg/dL | [facility] | | | | | | [facility] | | | | | | MEDICAL | | | | | | CENTER - | | | | | | LABORATORY | | + + + + + + | Calcium | 9.1 | 8.3 - 10.5 | [facility] | | | | | mg/dL | [facility] | | | | | | MEDICAL | | | | | | CENTER - | | | | | | LABORATORY | | + + + + + + | BUN | 18 | 7 - 18 mg/dL | [facility] | | | | | | [facility] | | | | | | MEDICAL | | | | | | CENTER - | | | | | | LABORATORY | | + + + + + + | Creatinine | 1.11 | 0.60 - 1.30 | [facility] | | | | | mg/dL | [facility] | | | | | | MEDICAL | | | | | | CENTER - | | | | | | LABORATORY | | + + + + + + | Estimated | 50 (L)Comment: For | >60 mL/min/A | [facility] | | | GFR | -Americans, | | [facility] | | | | please multiply the | | MEDICAL | | | | result by 1.210 | | CENTER - | | | | This is an estimated | | LABORATORY | | | | GFR and is based on a | | | | | | standard adult | | | | | | body mass (A=1.73m2) and | | | | | | serum creatinine | | | | + + + + + + | BUN/Creatin | 16.2 | 12 - 20 | [facility] | | | ine Ratio | | | [facility] | | | | | | MEDICAL | | | | | | CENTER - | | | | | | LABORATORY | | + + + + + + | Na | 142 | 136 - 149 mEq/L | [facility] | | | | | | [facility] | | | | | | MEDICAL | | | | | | CENTER - | | | | | | LABORATORY | | + + + + + + | K | 3.6 | 3.5 - 5.1 mEq/l | [facility] | | | | | | [facility] | | | | | | MEDICAL | | | | | | CENTER - | | | | | | LABORATORY | | + + + + + + | Cl | 101 | 98 - 109 mEq/l | [facility] | | | | | | [facility] | | | | | | MEDICAL | | | | | | CENTER - | | | | | | LABORATORY | | + + + + + + | CO2 | 29 | 24 - 31 mEq/L | [facility] | | | | | | [facility] | | | | | | MEDICAL | | | | | | CENTER - | | | | | | LABORATORY | | + + + + + + | Anion Gap | 15.6 | 6.0 - 17.0 | [facility] | | | | | | [facility] | | | | | | MEDICAL [...] | [address] | [place] | [phone] | | [facility] | | [address] | | | - LABORATORY | | | | + + + + + | [facility] | [address] | [place] | | | [facility] | | [address], [facility] | | | - LABORATORY | | | | + + + + + documented in this encounter Visit Diagnoses Not on filedocumented in this encounter"
--- OUTSIDE RECORDS SUMMARY | ~2020-01-04 | XMS | Encounter Summary ---
Demographics + + + | Address | [address] | | | [place] [address] | + + + | Home Phone | | + + + | Preferred Language | Unknown | + + + | Marital Status | | + + + | Scientologist Affiliation | 1027 | + + + | Race | Unknown | + + + | Ethnic Group | Unknown | + + + Author + + + | Author | [facility] | | | and [place] | + + + | Organization | [facility] | | | and [...] [place], | | | | | [place] [address] | | + + + + + | Ryan Vogt | ECON | Unknown | | + + + + + | Rob Vogt | ECON | Unknown | | + + + + + Care Team Providers + +------+ + | Care Rn Practitioner Name | Role | Phone | + +------+ + | Abrahan Samaniego MD | PCP | | + +------+ + Encounter Details +--------+ + + + + | Date | Type | Department | Care Team | Description | +--------+ + + + + | 04/15/ | Hospital | [facility] | | | | 2010 | Encounter | MED [facility] LAB[facility] | | | | | | [address] | | | | | | [place] | | | | | | [address] | | | | | | [phone] | | | +--------+ + + + [...] | | | | | | [place] [address] | | | | | | [phone] | | | | | | | | +--------+---------+ + + + | 09/03/ | Office | Endocrinology | Cheryl Zee MD | | | 2020 | Visit | | [address] [place] | | | | | | [address] [place] | | | | | | [address] | | | | | | | | +--------+---------+ + + + documented as of this encounter Procedures + +--------+ + + + | Procedure Name | Priori | Date/Time | Associated Diagnosis | Comments | | | ty | | | | + +--------+ + + + | RENIN ACTIVITY | Routin | 04/15/2011 | | Results for this | | | e | 7:13 AM | | procedure are in the | | | | PST | | results section. | + +--------+ + + + | PROLACTIN | Routin | 04/15/2011 | | Results for this | | | e | 7:13 AM | | procedure are in the | | | | PST | | results section. | + +--------+ + + + | INSULIN-LIKE GROWTH | Routin | 04/15/2011 | | Results for this | | FACTOR 1 | e | 7:13 AM | | procedure are in the | | | | PST | | results section. | + +--------+ + + + | CBC WITH | Routin | 04/15/2011 | | Results for this | | DIFFERENTIAL | e | 7:13 AM | | procedure are in the | | | | PST | | results section. | + +--------+ + + + | COMPREHENSIVE | Routin | 04/15/2011 | | Results for this | | METABOLIC PANEL | e | 7:13 AM | | procedure are in the | | | | PST | | results section. | + +--------+ + + + documented in this encounter Results Insulin-Like Growth Factor 1 (04/15/2011 7:13 AM PST) + + + + + + | Component | Value | Ref Range | Performed | Pathologist | | | | | At | Signature | + + + + + + | Insulin-lik | <25 (L)Comment: Testing | 75 - 212 ng/mL | [facility] | | | e Growth | Performed: Chad | | [facility] | | | Factor 1 | [facility] | | MEDICAL | | | | [place], [address] , | | CENTER - | | | | [place] [address] | | LABORATORY | | | | CLIA: [id number] | | | | + + + + + + + + | Specimen | + + | | + + + + + + + | Performing | Address | City/State/Zipcode | Phone Number | | Organization | | | | + + + + + | [facility] | [address] | [place], [place] | [phone] | | [facility] | | [address] | | | - LABORATORY | | | | + + + + + | [facility] | [address] | [place], [place] | | | [facility] | | [address] [place] [address] | | | - LABORATORY | | | | + + + + + Renin Activity (04/15/2011 7:13 AM PST) + + + + + + | Component | Value | Ref Range | Performed | Pathologist | | | | | At | Signature | + + + + + + | RENIN | 0.7Comment: Adult with | () ng/mL/h | [facility] | | | | normal sodium intake: | | [facility] | | | | Random ambulatory | | MEDICAL | | | | 0.8 to 2.5 ng/mL/h | | CENTER - | | | | Random non ambulatory | | LABORATORY | | | | 1.5 to 5.2 ng/mL/h | | | | | | Child, supine with | | | | | | normal sodium intake: | | | | | | 1 to 7 days: 15 to | | | | | | 114 ng/mL/h 7 d to | | | | | | 12 mo: 18 to 120 | | | | | | ng/mL/h 12 mo to 3 | | | | | | yr: 13 to 36 ng/mL/h | | | | | | 3 to 5 yrs: 7.5 to | | | | | | 21.1 ng/mL/h 5 to 10 | | | | | | yrs: 3.8 to 19.2 | | | | | | ng/mL/h 10 to 15 yrs: | | | | | | 3.8 to 10.7 ng/mL/h | | | | | | Testing Performed: | | | | | | Chad Spivey | | | | | | [facility], [address] | | | | | | [address] [place] [address] | | | | | | CLIA: [id number] | | | | + + + + + + + + | Specimen | + + | | + + + + + + + | Performing | Address | City/State/Zipcode | Phone Number | | Organization | | | | + + + + + | [facility] | [address] | [place] | [phone] | | [facility] | | [address] | | | - LABORATORY | | | | + + + + + | [facility] | [address] | [place] | | | [facility] | | [address], [facility] | | | - LABORATORY | | | | + + + + + Prolactin (04/15/2011 7:13 AM PST) + + + + + + | Component | Value | Ref Range | Performed | Pathologist | | | | | At | Signature | + + + + + + | Prolactin | 1.5Comment: Reference | 1.4 - 24.2 | [facility] | | | | range applies only to | ng/mL | [facility] | | | | non females. | | MEDICAL | | | | Testing Performed: | | CENTER - | | | | [facility], [address], | | LABORATORY | | | | [place] [address] | | | | | | CLIA: [id number] | | | | + + + + + + + + | Specimen | + + | | + + + + + + + | Performing | Address | City/State/Zipcode | Phone Number | | Organization | | | | + + + + + | [facility] | [address] | [place], [place] | [phone] | | [facility] | | [address] | | | - LABORATORY | | | | + + + + + | [facility] | [address] | [place], [place] | | | [facility] | | [id number] [place] [address] | | | - LABORATORY | | | | + + + + + Comprehensive Metabolic Panel (04/15/2011 7:13 AM PST) + + + + + + | Component | Value | Ref Range | Performed | Pathologist | | | | | At | Signature | + + + + + + | Glucose | 90 | 70 - 109 mg/dL | [facility] | | | | | | [facility] | | | | | | MEDICAL | | | | | | CENTER - | | | | | | LABORATORY | | + + + + + + | Calcium | 9.1 | 8.3 - 10.5 | [facility] | | | | | mg/dL | [facility] | | | | | | MEDICAL | | | | | | CENTER - | | | | | | LABORATORY | | + + + + + + | Alkaline | 77 | 40 - 110 IU/L | [facility] | | | Phosphatase | | | [facility] | | | | | | MEDICAL | | | | | | CENTER - | | | | | | LABORATORY | | + + + + + + | AST | 18 | 10 - 42 IU/L | [facility] | | | | | | [facility] | | | | | | MEDICAL | | | | | | CENTER - | | | | | | LABORATORY | | + + + + + + | ALT | 17 | 6 - 45 IU/L | [facility] | | | | | | [facility] | | | | | | MEDICAL | | | | | | CENTER - | | | | | | LABORATORY | | + + + + + + | Bilirubin | 0.7 | 0.2 - 1.0 mg/dL | [facility] | | | Total | | | [facility] | | | | | | MEDICAL | | | | | | CENTER - | | | | | | LABORATORY | | + + + + + + | Total | 6.3 | 6.0 - 7.8 gm/dL | [facility] | | | Protein | | | [facility] | | | | | | MEDICAL | | | | | | CENTER - | | | | | | LABORATORY | | + + + + + + | Albumin | 3.7 | 3.2 - 5.0 gm/dL | [facility] | | | | | | [facility] | | | | | | MEDICAL | | | | | | CENTER - | | | | | | LABORATORY | | + + + + + + | BUN | 16 | 7 - 18 mg/dL | [facility] | | | | | | [facility] | | | | | | MEDICAL | | | | | | CENTER - | | | | | | LABORATORY | | + + + + + + | Creatinine | 0.98 | 0.60 - 1.30 | [facility] | | | | | mg/dL | [facility] | | | | | | MEDICAL | | | | | | CENTER - | | | | | | LABORATORY | | + + + + + + | Estimated | 58 (L)Comment: For | >60 mL/min/A | [facility] | | | GFR | -Americans, | | [facility] | | | | please multiply the [...] + + + + | BUN/Creatin | 16.3 | 12 - 20 | [facility] | | | ine Ratio | | | [facility] | | [...] + + + + | K | 4.0 | 3.5 - 5.1 mEq/l | [facility] | | | | | | [facility] | | | | | | MEDICAL | | | | | | CENTER - | | | | | | LABORATORY | | + + + + + + | Cl | 107 | 98 - 109 mEq/l | [facility] [...] + + + | Anion Gap | 10.0 | 6.0 - 17.0 | [facility] | | | | | | [address]. [...] [address] | [place] | [phone] | | [facility] | | [address] | | | - LABORATORY | | | | + + + + + | [facility] | [address] | [place] | | | [facility] | | [id number] | | | - LABORATORY | | | | + + + + + CBC with Differential (04/15/2011 7:13 AM PST) + + + + + + | Component | Value | Ref Range | Performed | Pathologist | | | | | At | Signature | + + + + + + | White Blood | 5.3 | 4.0 - 11.0 K/uL | [facility] | | | Cells | | | [facility] | | | | | | MEDICAL | | | | | | CENTER - | | | | | | LABORATORY | | + + + + + + | Red Blood | 4.43 | 3.70 - 5.20 | [facility] | | | Cells | | M/uL | [facility] | | | | | | MEDICAL | | | | | | CENTER - | | | | | | LABORATORY | | + + + + + + | Hemoglobin | 13.4 | 11.5 - 16.0 | [facility] | | | | | gm/dL | [facility] | | | | | | MEDICAL | | | | | | CENTER - | | | | | | LABORATORY | | + + + + + + | Hematocrit | 40.0 | 34.0 - 47.0 % | [facility] | | | | | | [facility] | | | | | | MEDICAL | | | | | | CENTER - | | | | | | LABORATORY | | + + + + + + | MCV | 90.5 | 83.0 - 101.0 fL | [facility] | | | | | | [facility] | | | | | | MEDICAL | | | | | | CENTER - | | | | | | LABORATORY | | + + + + + + | MCH | 30.3 | 28.0 - 35.0 pg | [facility] | | | | | | [facility] | | | | | | MEDICAL | | | | | | CENTER - | | | | | | LABORATORY | | + + + + + + | MCHC | 33.5 | 32.0 - 36.0 | [facility] | | | | | g/dL | [facility] | | | | | | MEDICAL | | | | | | CENTER - | | | | | | LABORATORY | | + + + + + + | RDW-CV | 13.1 | <15.0 % | [facility] | | | | | | [facility] | | | | | | MEDICAL | | | | | | CENTER - | | | | | | LABORATORY | | + + + + + + | Platelet | 240 | 140 - 440 K/uL | [facility] | | | Count | | | [facility] | | | | | | MEDICAL | | | | | | CENTER - | | | | | | LABORATORY | | + + + + + + | % | 40.9 (L) | 45 - 82 % | [facility] | | | Neutrophils | | | [facility] | | | | | | MEDICAL | | | | | | CENTER - | | | | | | LABORATORY | | + + + + + + | % | 51.0 (H) | 20 - 45 % | [facility] | | | Lymphocytes | | | [facility] | | | | | | MEDICAL | | | | | | CENTER - | | | | | | LABORATORY | | + + + + + + | % Monocytes | 8.1 | 4 - 12 % | [facility] | | | | | | [facility] | | | | | | MEDICAL | | | | | | CENTER - | | | | | | LABORATORY | | + + + + + + | Absolute | 2.2 | 1.8 - 8.5 K/uL | [facility] | | | Neutrophils | | | [facility] | | | | | | MEDICAL | | | | | | CENTER - | | | | | | LABORATORY | | + + + + + + | Absolute | 2.7 | 0.6 - 3.2 K/uL | [facility] | | | Lymphocytes | | | [facility] | | | | | | MEDICAL | | | | | | CENTER - | | | | | | LABORATORY | | + + + + + + | Absolute | 0.4 | 0.0 - 1.0 K/uL | [facility] | | | Monocytes | | | [facility] | | [...] [address] | [place] | [phone] | | [facility] | | [address] | | | - LABORATORY | | | | + + + + + | [facility] | [address] | [place] | | | [facility] | | [address] | | | - LABORATORY | | | | + + + + + documented in this encounter Visit Diagnoses Not on filedocumented in this encounter"
--- OUTSIDE RECORDS SUMMARY | ~2020-01-04 | XMS | Encounter Summary ---
Demographics + + + | Address | [address] | | | [place] [address] | + + + | Home Phone | | + + + | Preferred Language | Unknown | + + + | Marital Status | | + + + | Nondenominational Affiliation | 1027 | + + + | Race | Unknown | + + + | Ethnic Group | Unknown | + + + Author + + + | Author | [facility] | | | and [place] | + + + | Organization | [facility] | | | [...] [place], | | | | | [place] [address] | | + + + + + | Ryan Vogt | ECON | Unknown | | + + + + + | Rob Vogt | ECON | Unknown | | + + + + + Care Team Providers + +------+ + | Care Pool Cleaner Name | Role | Phone | + +------+ + | Abrahan Samaniego MD | PCP | | + +------+ + Reason for Referral Service/Procedure (Routine) +--------+ + + + + + | Status | Reason | Specialty | Diagnoses / | Referred By | Referred To | | | | | Procedures | Contact | Contact | +--------+ + + + + + | Closed | Specialty | Gastroenterol | Diagnoses | Hillary, | Hillary, | | | Services | ogy | Special | Shaji Hernandez MD | Shaji Hernandez MD | | | Required | | screening | [address], | | | | | for | [place], [place] | [address] | | | | | malignant | [address] [place] | [place], | | | | | neoplasms, | [place], [place] | [place] [address] | | | | | colon | [address] | Phone: | | | | | Procedures | Phone: | [phone] | | | | | [place] | [phone] | Fax: | | | | | COLONOSCOPY, | Fax: | [phone] | | | | | DIAGNOSTIC | [phone] | | | | | | [place] | | | | | | | COLONOSCOPY, | | | | | | | BIOPSY | | | +--------+ + + + + + Reason for Visit + +--------+ + | Reason | Onset | Comments | | | Date | | + +--------+ + | Appointment | 02/06/ | schedule colonoscopy procedure only | | | 2013 | | + +--------+ + Encounter Details +--------+ + + + + | Date | Type | Department | Care Team | Description | +--------+ + + + + | 02/06/ | Telephone | [facility] [place] | Shaji Thornton MD | Appointment | | 2013 | | GASTROENTEROLOGY | [address], [place] | (schedule | | | | [address] [place] | [address] [place], [place] | colonoscopy | | | | [address] [place], [place] | [address] | procedure only) | | | | [address] | | | | | | [phone] | | | +--------+ + + + [...] this encounter Miscellaneous Notes Telephone Encounter - Brissa Erickson RN - 02/19/2014 4:03 PM PDTCalled Oliva and sche duled with her for a screening colonoscopy with Dr Thornton for 03/12/14 checking in at 7am. Pre p prescription sent to [facility]. Mailed prep instructions, Suprep instructions, map to [facility], questionnaire, low residue diet to patient. Emailed Breann to add to schedule. Entered referral . elephone Encount clarke - Milagros Jones RN - 02/15/2014 10:23 AM PDTCalled patient for second time, unable to le ave message will try again later. 10: 24 AM PDTTelephone Encounter - Milagros Jones RN - 02/12/2014 11:08 AM PDTCalled and message left for patient to call back to our office for procedure only elephone Sonam - Milagros Jones RN - 02/08/2014 9:32 AM PDTRecords printed and on 's desk for review for possible colonoscopy proce dure only eRafaela Conley - 02/06/2014 12:59 PM PDTPatient called in stating she received her rec all letter and would like a procedure only. Patients PCP is . Please review.Electr onically signed by Rafaela Patricia at 02/06/2014 12:59 PM PDTdocumented in this encounter Plan of Treatment +--------+---------+ + + + | Date | Type | Specialty | Care Team | Description | +--------+---------+ + + + | 04/29/ | Office | Internal Medicine | Abrahan Samaniego MD | | | 2019 | Visit | | [address] [place] [address] | | | | | | [place] | | | | | | [address] | | | | | | | | +--------+---------+ + + + | 07/25/ | Office | Cardiology | Renetta, | | | 2020 | Visit | | [address] [address] | | | | | | [place] | | | | | | [place] [address] | | | | | | [phone] | | | | | | | | +--------+---------+ + + + | 09/03/ | Office | Endocrinology | Cheryl Zee MD | | | 2020 | Visit | | [address] [place] | | | | | | [address] [place] | | | | | | [id number] | | | | | | | | +--------+---------+ + + + + + +--------+ + + | Name | Type | Priori | Associated Diagnoses | Order Schedule | | | | ty | | | + + +--------+ + + | Ambulatory referral | Outpatient | Routin | Special screening | Expected: | | to Gastroenterology | Referral | e | for malignant | 03/12/2014, Expires: | | | | | neoplasms, colon | 02/19/2015 | + + +--------+ + + documented as of this encounter Visit Diagnoses + + | Diagnosis | + + | Special screening for malignant neoplasms, colon - Primary | + + documented in this encounter"
--- OUTSIDE RECORDS SUMMARY | ~2020-01-04 | XMS | Encounter Summary ---
Demographics + + + | Address | [address] | | | [place] [address] | + + + | Home Phone | | + + + | Preferred Language | Unknown | + + + | Marital Status | | + + + | Confucianism Affiliation | 1027 | + + + | Race | Unknown | + + + | Ethnic Group | Unknown | + + + Author + + + | Author | [facility] | | | and [place] | + + + | Organization | [facility] | | | and [...] [place], | | | | | [place] [address] | | + + + + + | Ryan Vogt | ECON | Unknown | | + + + + + | Rob Vogt | ECON | Unknown | | + + + + + Care Team Providers + +------+ + | Care Ethylene Compressor Operator Name | Role | Phone | + +------+ + | Abrahan Samaniego MD | PCP | | + +------+ + Reason for Visit + +--------+ + | Reason | Onset | Comments | | | Date | | + +--------+ + | Follow-up | 06/01/ | | | | 2018 | | + +--------+ + Encounter Details +--------+ + + + + | Date | Type | Department | Care Team | Description | +--------+ + + + + | 06/01/ | Telephone | [facility] [place] [facility] | Abrahan Samaniego MD | Follow-up | | 2018 | | [address] | [address] [place] [address] | | | | | [place], | [place] | | | | | [place] [address] | [id number] | | | | | [phone] | | | +--------+ + + + [...] this encounter Miscellaneous Notes Telephone Encounter - Abrahan Samaniego MD - 06/01/2019 12:19 PM PSTI spoke with covering End o for Dr Zee: Hydrocortisone 100 mg IV 1 hour prior to surgery. If she does well then home on double her daily dose of prednisone which would be 12 mg woo y for 3 days then back to her regular 6 mg daily dose. If she has post-op hypotension or severe N/V then would keep overnight with hydrocortisone 50 mg IV q 8 hours until stable. Abrahan Samaniego MD Lexi chester in this encounter Plan of Treatment +--------+---------+ + + + | Date | Type | Specialty | Care Team | Description | +--------+---------+ + + + | 04/29/ | Office | Internal Medicine | Abrahan Samaniego MD | | | 2019 | Visit | | [address] [place] [address] | | | | | | [place] | | | | | | [address] | | | | | | | | +--------+---------+ + + + | 07/25/ | Office | Cardiology | Renetta, | | | 2020 | Visit | | [address] | | | | | | [place] | | | | | | [place] [address] | | | | | | [phone] | | | | | | | | +--------+---------+ + + + | 09/03/ | Office | Endocrinology | Cheryl Zee MD | | | 2020 | Visit | | [address] | | | | | | [address] [place] | | | | | | [address] | | | | | | | | +--------+---------+ + + + documented as of this encounter Visit Diagnoses Not on filedocumented in this encounter"
--- OUTSIDE RECORDS SUMMARY | ~2020-01-04 | XMS | Encounter Summary ---
Demographics + + + | Address | [address] | | | [place] [address] | + + + | Home Phone | | + + + | Preferred Language | Unknown | + + + | Marital Status | | + + + | Denominational Affiliation | 1027 | + + + | Race | Unknown | + + + | Ethnic Group | Unknown | + + + Author + + + | Author | [facility] | | | and [place] | + + + | Organization | [facility] | | | [...] [place], | | | | | [place] [address] | | + + + + + | Ryan Vogt | ECON | Unknown | | + + + + + | Rob Vogt | ECON | Unknown | | + + + + + Care Team Providers + +------+ + | Care Meat Lugger Name | Role | Phone | + +------+ + | Abrahan Samaniego MD | PCP | | + +------+ + Reason for Visit + +--------+ + | Reason | Onset | Comments | | | Date | | + +--------+ + | Dizziness | 10/24/ | | | | 2012 | | + +--------+ + Encounter Details +--------+ + + + + | Date | Type | Department | Care Team | Description | +--------+ + + + + | 10/24/ | Telephone | [facility] | Abrahan Samaniego MD | Dizziness | | 2012 | | MEDICINE [address] [place] [address] | [address] [place] [address] | | | | | [place], | [place] | | | | | [place] [address] | [address] | | | | | [phone] | | | +--------+ + + + [...] this encounter Miscellaneous Notes Telephone Encounter - Kassie Rasmussen RN - 10/24/2012 2:28 PM PDTPatient notified and ap pointment made for today at 4:30 elephone Encounter - Abrahan Samaniego MD - 10/24/2012 2:22 PM PDTCan do 4:30 tod ay elephone Encounter - Kassie Rasmussen RN - 10/24/2012 1:52 PM PDTPatient states she had an incident today wher e she was looking up at a menu on the wall in the grocery store and all of a sudden she had blurred and double vision - one eye went to the right and one stayed in the center and she g ot very dizzy. Incident lasted 15 seconds and left. She feels fine now but would like an a ppointment this week. Patient asking for appointment harsha please. documented in this encounter Plan of Treatment +--------+---------+ + + + | Date | Type | Specialty | Care Team | Description | +--------+---------+ + + + | 04/29/ | Office | Internal Medicine | Abrahan Samaniego MD | | | 2019 | Visit | | [address] | | | | | | [place] | | | | | | [address] | | | | | | | | +--------+---------+ + + + | 07/25/ | Office | Cardiology | Renetta, | | | 2020 | Visit | | [address] | | | | | | [place], | | | | | | [place] [address] | | | | | | [phone] | | | | | | | | +--------+---------+ + + + | 09/03/ | Office | Endocrinology | Cheryl Zee MD | | | 2020 | Visit | | [address] [place] [address] | | | | | | [address] [place] | | | | | | [address] | | | | | | | | +--------+---------+ + + + documented as of this encounter Visit Diagnoses Not on filedocumented in this encounter"
--- OUTSIDE RECORDS SUMMARY | ~2020-01-04 | XMS | Encounter Summary ---
Demographics + + + | Address | [address] | | | [place] [address] | + + + | Home Phone | | + + + | Preferred Language | Unknown | + + + | Marital Status | | + + + | Taoist Affiliation | 1027 | + + + | Race | Unknown | + + + | Ethnic Group | Unknown | + + + Author + + + | Author | [facility] | | | and [place] | + + + | Organization | [facility] | | | [...] [place], | | | | | [place] [address] | | + + + + + | Ryan Vogt | ECON | Unknown | | + + + + + | Rob Vogt | ECON | Unknown | | + + + + + Care Team Providers + +------+ + | Care Personal Service Representative Name | Role | Phone | + +------+ + | Abrahan Samaniego MD | PCP | | + +------+ + Reason for Visit + + + | Reason | Comments | + + + | Medication Refill | | + + + Encounter Details +--------+--------+ + + + | Date | Type | Department | Care Team | Description | +--------+--------+ + + + | 06/12/ | Refill | [facility] [place] [facility] | Abrahan Samaniego MD | Medication Refill | | 2017 | | MEDICINE [address] [place] [address] | [address] [place] [address] | | | | | [place], | [place] | | | | | [place] [address] | [address] | | | | | [phone] | | | +--------+--------+ + + + Social History + +-------+ [...] this encounter Miscellaneous Notes Telephone Encounter - Delphine Doan RN - 06/14/2017 10:14 AM PSTOk to refill Atorvastat in? Last lipid 05/2015 do cumented in this encounter Plan of Treatment +--------+---------+ + + + | Date | Type | Specialty | Care Team | Description | +--------+---------+ + + + | 04/29/ | Office | Internal Medicine | Abrahan Samaniego MD | | | 2019 | Visit | | [address] [place] [address] | | | | | | [place] | | | | | | [address] | | | | | | | | +--------+---------+ + + + | 07/25/ | Office | Cardiology | Renetta, | | | 2020 | Visit | | [address] | | | | | | [address] | | | | | | [place] [address] | | | | | | [phone] | | | | | | | | +--------+---------+ + + + | 09/03/ | Office | Endocrinology | Cheryl Zee MD | | | 2020 | Visit | | [address] | | | | | | [address] [place] | | | | | | [address] | | | | | | | | +--------+---------+ + + + documented as of this encounter Visit Diagnoses Not on filedocumented in this encounter"
--- OUTSIDE RECORDS SUMMARY | ~2020-01-04 | XMS | Encounter Summary ---
Demographics + + + | Address | [address] | | | [place] [address] | + + + | Home Phone | | + + + | Preferred Language | Unknown | + + + | Marital Status | | + + + | Roman Catholic Affiliation | 1027 | + + + | Race | Unknown | + + + | Ethnic Group | Unknown | + + + Author + + + | Author | [facility] | | | and [place] | + + + | Organization | [facility] | | | [...] [place], | | | | | [place] [address] | | + + + + + | Ryan Vogt | ECON | Unknown | | + + + + + | Rob Vogt | ECON | Unknown | | + + + + + Care Team Providers + +------+ + | Care Defensive Fire Control Systems Operator Name | Role | Phone | + +------+ + | Julisa Samaniego MD | PCP | | + +------+ + Reason for Visit +--------+--------+ + | Reason | Onset | Comments | | | Date | | +--------+--------+ + | Other | 06/30/ | Dr. Zee recommendations | | | 2013 | | +--------+--------+ + Encounter Details +--------+ + + + + | Date | Type | Department | Care Team | Description | +--------+ + + + + | 06/30/ | Telephone | [facility] | Julisa Samaniego MD | Other (Dr. Zee | | 2013 | | MEDICINE [address] | [address] [place] [address] | recommendations) | | | | [place], | [place] | | | | | [place] [address] | [address] | | | | | [phone] | | | +--------+ + + + [...] Telephone Encounter - Christina Wilson LPN - 06/30/2013 11:17 AM PSTPatient notified- says she is scheduled with Dr. Zee for August and she will talk further with her at that time.El ectronically signed by Christina Wilson LPN at 06/30/2013 11:22 AM PSTTelephone Encounter - Julisa Brink MD - 06/30/2013 8:[address] Zee. Both HGH and statin are OPTI ONS. Not mandatory. She does NOT want to start the HGH untiil pt has a colonoscopy and furt her eval of her skull lesion which the pt has declined at this time elephone Encounter - Julisa Samaniego MD - 06/30 8:56 AM PSTMessage copied by JULISA SAMANIEGO on WedJun 30, 2013 0856 ------ Message from: CHRISTINA WILSON Created: WedJun 23, [address] Zee @ [phone] regarding Oliva Robertaedna documented in this encounter Plan of Treatment +--------+---------+ + + + | Date | Type | Specialty | Care Team | Description | +--------+---------+ + + + | 04/29/ | Office | Internal Medicine | Julisa Samaniego MD | | | 2019 | Visit | | [place] | | | | | | [place] | | | | | | [address] | | | | | | | | +--------+---------+ + + + | 07/25/ | Office | Cardiology | [place], | | | 2020 | Visit | | [address] [address] | | | | | | [place] | | | | | | [place] [address] | | | | | | [phone] | | | | | | | | +--------+---------+ + + + | 09/03/ | Office | Endocrinology | Cheryl Zee MD | | | 2020 | Visit | | [address] [place] | | | | | | [address] [place] | | | | | | [phone] | | | | | | | | +--------+---------+ + + + documented as of this encounter Visit Diagnoses Not on filedocumented in this encounter"
--- OUTSIDE RECORDS SUMMARY | ~2020-01-04 | XMS | Encounter Summary ---
Demographics + + + | Address | [address] | | | [place] [address] | + + + | Home Phone | | + + + | Preferred Language | Unknown | + + + | Marital Status | | + + + | Buddhist Affiliation | 1027 | + + + | Race | Unknown | + + + | Ethnic Group | Unknown | + + + Author + + + | Author | [facility] | | | and [place] | + + + | Organization | [facility] | | | and [...] [place], | | | | | [place] [address] | | + + + + + | Ryan Vogt | ECON | Unknown | | + + + + + | Rob Vogt | ECON | Unknown | | + + + + + Care Team Providers + +------+ + | Care Osteopathic Neurologist Name | Role | Phone | + [...] Description | +--------+--------+ + + + | 10/04/ | Refill | [facility] | Abrahan Samaniego MD | Medication Refill | | 2019 | | [facility] [place] | [address] [place] [address] | | | | | ENDOCRINOLOGY [address] | [place] | | | | | [address] [place] [address] | [address] | | | | | [place] | | | | | | [address] | | | | | | [phone] | | | +--------+--------+ + + + [...] | | | | | | [place] [address] | | | | | | [phone] | | | | | | | [...] Diagnoses Not on filedocumented in this encounter Additional Health Concerns + + + + + | Infection | Onset Date | Last Indicated | Resolved Time | + + + + + | Rule out COVID-19 | 09/15/2019 | 09/15/2019 | 09/19/2019 6:06 PM | | | | | PDT | + + + + + | Rule out COVID-19 | 01/04/2020 | 01/04/2020 | 01/04/2020 7:37 PM | | | | | PDT | + + + + + documented as of this encounter"
--- OUTSIDE RECORDS SUMMARY | ~2020-01-04 | XMS | Encounter Summary ---
Demographics + + + | Address | [address] | | | [place] [address] | + + + | Home Phone | | + + + | Preferred Language | Unknown | + + + | Marital Status | | + + + | Gnosticism Affiliation | 1027 | + + + | Race | Unknown | + + + | Ethnic Group | Unknown | + + + Author + + + | Author | [facility] | | | and [place] | + + + | Organization | [facility] | | | [...] [place], | | | | | [place] [address] | | + + + + + | Ryna Vogt | ECON | Unknown | | + + + + + | Rob Vogt | ECON | Unknown | | + + + + + Care Team Providers + +------+ + | Care Senior Paralegal Name | Role | Phone | + +------+ + | Abrahan Samaniego MD | PCP | | + +------+ + Encounter Details +--------+ + + + + | Date | Type | Department | Care Team | Description | +--------+ + + + + | 07/21/ | Hospital | [facility] | Abrahan Samaniego MD | | | 2011 | Encounter | MED CTR XRAY [address] | [address] [facility] | | | | | [place] | [place] | | | | | [place] [address] | [address] | | | | | [phone] | | | +--------+ + + + [...] | 2019 | Visit | | [address] [facility] | | | | | | [place] | | | | | | [address] | | | | | | | | +--------+---------+ + + + | 07/25/ | Office | Cardiology | [place], | | | 2020 | Visit | | [address] [address] | | | | | | [place] | | | | | | [place] [address] | | | | | | [phone] | | | | | | | | +--------+---------+ + + + | 09/03/ | Office | Endocrinology | Cheryl Zee MD | | | 2020 | Visit | | [address] [place] | | | | | | [address] [place] | | | | | | [phone] | | | | | | | | +--------+---------+ + + + documented as of this encounter Procedures + +--------+ + + + | Procedure Name | Priori | Date/Time | Associated Diagnosis | Comments | | | ty | | | | + +--------+ + + + | MRI BRAIN W WO | | 07/21/2011 | | Results for this | | CONTRAST | | 8:26 AM | | procedure are in the | | | | PST | | results section. | + +--------+ + + + documented in this encounter Results MRI Brain w wo Contrast (07/21/2011 8:26 AM PST) + + | Specimen | + + | | + + + + + | Narrative | Performed At | + + + | [facility] Diagnostic Imaging Department | [place] | | [address] [facility] [place] | [facility] | | BRAIN MR WITH AND WITHOUT | DIAG IMG | | CONTRAST 07/21/2011 CLINICAL HISTORY: CALVARIAL LESION. | | | COMPARISON STUDIES: Prior pituitary MR April 2011, bone scan, | | | skull series, and noncontrast head CT May 2011. | | | TECHNIQUE: T1 sagittal and transaxial, transaxial spin echo PD/T2, | | | transaxial FLAIR, transaxial gradient echo FLASH, and | | | post-gadolinium T1 transaxial and coronal. FINDINGS: The | | | current study demonstrates probable progression of the largest right | | | frontal calvarial lesion. There appears to be cortical breakthrough | | | at the inner table which was not present on the prior study. | | | There is no associated dural enhancement under the lesion. There | | | is asymmetric calvarial thickening in the right frontal lesion. | | | The lesion now extends peripherally to the outer table. The outer | | | table cortex appears intact. In addition, there are probably two | | | additional lesions identified on the current study. There is an | | | ovoid lesion beneath the outer table above the right frontal sinus. | | | There is a second smaller inner table lesion more rostral to this | | | second lesion. These two new lesions were not well imaged on the | | | prior study because of the limited scope of the study which was | | | centered at the pituitary gland. These may represent either new | | | lesions or previously unrecognized lesions. The lesions | | | demonstrate a minimal degree of enhancement after gadolinium. The | | | lesions are minimally hyperintense on STIR within the diploic space. | | | There is no associated brain, dural or leptomeningeal involvement. | | | Images of the brain are stable and unremarkable. The | | | pituitary redemonstrates empty sella turcica. The anterior skull | | | base demonstrates extensive right sphenoid sinusitis and minimal | | | left maxillary sinusitis. IMPRESSION: 1. PROBABLE SLOW | | | PROGRESSION OF THE OSTEOSCLEROTIC LESION OF THE RIGHT FRONTAL BONE | | | WITH AT LEAST TWO SATELLITE LESIONS MORE ANTERIOR AND INFERIOR IN THE | | | RIGHT FRONTAL BONE. POSSIBLE BREAKTHROUGH THROUGH THE INNER TABLE | | | OF THE INDEX LESION IS SUSPICIOUS FOR SLOW PROGRESSION OF DISEASE. | | | THE NEW LESIONS SEEN ON TODAY'S STUDY MAY REPRESENT NEW FOCI OR | | | MAY NOT HAVE BEEN IDENTIFIED ON THE PREVIOUS LIMITED STUDY. | | | COMMENT: WITH THE NUCLEAR MEDICINE BONE SCAN POSITIVITY, AND SLIGHT | | | RADIOGRAPHIC PROGRESSION, THE APPEARANCE AND BEHAVIOR SUGGESTS A MORE | | | AGGRESSIVE HISTOLOGY. NEUROSURGICAL CONSULTATION IS SUGGESTED IN | | | CONSIDERATION OF POSSIBLE BONE BIOPSY FOR HISTOLOGY. Dictated | | | Date/Time: 07/21/2011 14:58 Transcribed Date/Time: 07/21/2011 | | | 15:21 Outbound Call Center Representative: <Electronically Signed by Juan Mullen | | | MD Domonique> 07/21/11 1716 | | + + + + + | Procedure Note | + + | Vishnu, Rad Conversion - 07/14/2013 4:44 PM [facility] | | Diagnostic Imaging Department | | [address] [facility] | | | | | | | | BRAIN MR WITH AND WITHOUT CONTRAST 07/21/2011 | | | | CLINICAL HISTORY: CALVARIAL LESION. | | | | COMPARISON STUDIES: Prior pituitary MR April 2011, bone scan, skull series, | | and noncontrast head CT May 2011. | | | | TECHNIQUE: T1 sagittal and transaxial, transaxial spin echo PD/T2, transaxial | | FLAIR, transaxial gradient echo FLASH, and post-gadolinium T1 transaxial and | | coronal. | | | | FINDINGS: The current study demonstrates probable progression of the largest | | right frontal calvarial lesion. There appears to be cortical breakthrough at | | the inner table which was not present on the prior study. There is no | | associated dural enhancement under the lesion. There is asymmetric calvarial | | thickening in the right frontal lesion. The lesion now extends peripherally to | | the outer table. The outer table cortex appears intact. In addition, there are | | probably two additional lesions identified on the current study. There is an | | ovoid lesion beneath the outer table above the right frontal sinus. There is a | | second smaller inner table lesion more rostral to this second lesion. These | | two new lesions were not well imaged on the prior study because of the limited | | scope of the study which was centered at the pituitary gland. These may | | represent either new lesions or previously unrecognized lesions. The lesions | | demonstrate a minimal degree of enhancement after gadolinium. The lesions are | | minimally hyperintense on STIR within the diploic space. There is no associated | | brain, dural or leptomeningeal involvement. | | | | Images of the brain are stable and unremarkable. The pituitary redemonstrates | | empty sella turcica. The anterior skull base demonstrates extensive right | | sphenoid sinusitis and minimal left maxillary sinusitis. | | | | IMPRESSION: | | 1. PROBABLE SLOW PROGRESSION OF THE OSTEOSCLEROTIC LESION OF THE RIGHT FRONTAL | | BONE WITH AT LEAST TWO SATELLITE LESIONS MORE ANTERIOR AND INFERIOR IN THE | | RIGHT FRONTAL BONE. POSSIBLE BREAKTHROUGH THROUGH THE INNER TABLE OF THE INDEX | | LESION IS SUSPICIOUS FOR SLOW PROGRESSION OF DISEASE. THE NEW LESIONS SEEN ON | | TODAY'S STUDY MAY REPRESENT NEW FOCI OR MAY NOT HAVE BEEN IDENTIFIED ON THE | | PREVIOUS LIMITED STUDY. | | | | COMMENT: WITH THE NUCLEAR MEDICINE BONE SCAN POSITIVITY, AND SLIGHT | | RADIOGRAPHIC PROGRESSION, THE APPEARANCE AND BEHAVIOR SUGGESTS A MORE | | AGGRESSIVE HISTOLOGY. NEUROSURGICAL CONSULTATION IS SUGGESTED IN CONSIDERATION | | OF POSSIBLE BONE BIOPSY FOR HISTOLOGY. | | | | Dictated Date/Time: 07/21/2011 14:58 | | Transcribed Date/Time: 07/21/2011 15:21 | | Outbound Call Center Representative: | | <Electronically Signed by Juan Youssef MD> 07/21/11 1716 | + + + +---------+ + + | Performing | Address | City/State/Zipcode | Phone Number | | Organization | | | | + +---------+ + + | [place] | | | | | [place] | | | | + +---------+ + + documented in this encounter Visit Diagnoses Not on filedocumented in this encounter"
--- OUTSIDE RECORDS SUMMARY | ~2020-01-04 | XMS | Encounter Summary ---
Demographics + + + | Address | [address] | | | [place] [address] | + + + | Home Phone | | + + + | Preferred Language | Unknown | + + + | Marital Status | | + + + | Jewish Affiliation | 1027 | + + + | Race | Unknown | + + + | Ethnic Group | Unknown | + + + Author + + + | Author | [facility] | | | and [place] [...] [place], | | | | | [place] [address] | | + + + + + | Ryan Vogt | ECON | Unknown | | + + + + + | Rob Vogt | ECON | Unknown | | + + + + + Care Team Providers + +------+ + | Care Assistant Reading Teacher Name | Role | Phone | + +------+ + | Abrahan Samaniego MD | PCP | | + +------+ + Reason for Referral Evaluate & Treat (Routine) +--------+ + + + + + | Status | Reason | Specialty | Diagnoses / | Referred By | Referred To | | | | | Procedures | Contact | Contact | +--------+ + + + + + | Closed | Specialty | Orthopedic | Diagnoses | [place], | [place], | | | Services | Surgery | [facility] | Abrahan Cortez MD | Davion Alexis DO | | | Required | | contracture | [address] | [address] | | | | | of right | [address] | [place] | | | | | hand | [place], | [place] | | | | | | [place] [address] | [address] | | | | | | Phone: | Phone: | | | | | | [phone] | [phone] | | | | | | Fax: | Fax: | | | | | | [phone] | [phone] | +--------+ + + + + + Reason for Visit + + + | Reason | Comments | + + + | Pharyngitis | x2 months | + + + Encounter Details +--------+---------+ + + + | Date | Type | Department | Care Team | Description | +--------+---------+ + + + | 09/03/ | Office | [facility] | Abrahan Samaniego MD | Dupuytren's | | 2014 | Visit | MEDICINE [address] [place] [address] | [address] [place] [address] | contracture of right | | | | [place], | [place] | hand (Primary Dx); | | | | [place] [address] | [phone] | Sore throat | | | | [phone] | | | +--------+---------+ + + + Social History [...] + + + | Blood Pressure | 112/78 | 09/03/2014 10:07 AM | | | | | PDT | | + + + + + | Pulse | 74 | 09/03/2014 10:07 AM | | | | | PDT | | + + + + + | Temperature | - | - | | + + + + + | Respiratory Rate | - | - | | + + + + + | Oxygen Saturation | 98% | 09/03/2014 10:07 AM | | | | | PDT | | + + + + + | Inhaled Oxygen | - | - | | | Concentration | | | | + + + + + | Weight | 67.1 kg (148 lb) | 09/03/2014 10:07 AM | | | | | PDT | | + + + + + | Height | 160 cm (5' 3") | 09/03/2014 10:07 AM | | | | | PDT | | + + + + + | Body Mass Index | 26.22 | 09/03/2014 10:07 AM | | | | | PDT | | + + + + + documented in this encounter Progress Notes Abrahan Samaniego MD - 09/03/2014 10:19 AM PDT 09/03/2014 Oliva Vogt 1950 History: Oliva Vogt is a 64 y.o. female here for : 2 mo episode of slight sore throat. On the right side. No fever, chills, nightsweats, PND, rhinorrhea, allergy problems. It was worse when she first got it so she upped her pred for 3 days. Then it got better but didn't resolve. There is mld pain with swallowing. There is no cough or wheezing. She doesn't think that she snores at night. She says that her would notice because he has a lot of nightime awakenings. She has not noticed any swelling in her neck. Used to have a lot of sore throats when she was younger. She denies heartburn or reflux. 2. 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 Because of the contracture at the 5th finger she can't reach the octave any longer a nd it is hampering her ability to play. She would like to consider having an "injection" in it to help with the contracture. Current Outpatient Rx Name Route Sig Dispense Refill Calcium Carbonate-Vitamin D 600-125 MG-UNIT TABS Oral Take by mouth Daily. cholecalciferol (VITAMIN D-3) 1,000 units tablet Oral Take 1,000 Units by mouth Daily. levothyroxine (SYNTHROID, LEVOTHROID) 100 mcg tablet Oral Take 100 mcg by mouth every morning (before breakfast). omeprazole (PRILOSEC) 20 mg capsule Oral Take 1 capsule by mouth Daily. 30 capsule 0 predniSONE (DELTASONE) 5 mg tablet Take 1 tablet by mouth daily with one 1 mg tab (total 6mg by mouth daily ) 90 tablet 3 Allergies Allergen Reactions Succinylcholine Chloride Other (See Comments) Hard to wake up Review of Systems: See above Physical Exam: BP 112/78 | Pulse 74 | Ht 1.6 m (5' 3") | Wt 67.132 kg (148 lb) | BMI 26.22 kg/m2 | SpO2 98% GEN: No acute distress. HEENT:EOMI, OP : She has some mild erythema on the tonsillar pillars CHEST: Clear to auscultation. No wheezes, rales, rhonchi. Normal effort and movement CAR: Rhythm:regular Murmur:no Jese:no JVP:no Pulses:normal radial and carotid ABD: non-distended, non-tender. No hepatosplenomegaly EXT: No clubbing, cyanosis, or edema MS: She has a contractuture on the right 4th and 5th fingers Assessment: Plan 1. Dupuytren's contracture of right hand : The contractures are interfering with her ability to play the organ She is referred to the hand specialist for consideration of correction of the contracture 2. Sore throat : I don't think that this is infectious in etiology. My suspicion is that it is either unrecognized GERD or possibly PND. Her nasal exam showed very mild edema so i am going to start with PPI. She will let me know how she is doing in about 2 weeks. documented in this enc ounter Plan of Treatment +--------+---------+ + + + | Date | Type | Specialty | Care Team | Description | +--------+---------+ + + + | 04/29/ | Office | Internal Medicine | Abrahan Samaniego MD | | | 2019 | Visit | | [address] [place] [address] | | | | | | [place] | | | | | | [address] | | | | | | | | +--------+---------+ + + + | 07/25/ | Office | Cardiology | [place], | | | 2020 | Visit | | [address] | | | | | | [place], | | | | | | [place] [address] | | | | | | [phone] | | | | | | | | +--------+---------+ + + + | 09/03/ | Office | Endocrinology | Cheryl Zee MD | | | 2020 | Visit | | [address] | | | | | | [address] [place] | | | | | | [phone] | | | | | | | | +--------+---------+ + + + + + +--------+ + + | Name | Type | Priori | Associated Diagnoses | Order Schedule | | | | ty | | | + + +--------+ + + | Orthopedic Surgery, | Outpatient | Routin | Dupuytren's | Ordered: 09/03/2014 | | External - AMB | Referral | e | contracture of right | | | Referral | | | hand | | + + +--------+ + + documented as of this encounter Visit Diagnoses + + | Diagnosis | + + | Dupuytren's contracture of right hand - Primary Contracture of palmar fascia | + + | Sore throat Acute pharyngitis | + + documented in this encounter
--- OUTSIDE RECORDS SUMMARY | ~2020-01-04 | XMS | Encounter Summary ---
Demographics + + + | Address | [address] | | | [place] [address] | + + + | Home Phone | | + + + | Preferred Language | Unknown | + + + | Marital Status | | + + + | Holiness Affiliation | 1027 | + + + | Race | Unknown | + + + | Ethnic Group | Unknown | + + + Author + + + | Author | [facility] | | | and [...] [place], | | | | | [place] [address] | | + + + + + | Ryan Vogt | ECON | Unknown | | + + + + + | Rob Vogt | ECON | Unknown | | + + + + + Care Team Providers + +------+ + | Care Loading Dock Hand Name | Role | Phone | + +------+ + | Abrahan Samaniego MD | PCP | | + +------+ + Reason for Visit + +--------+ + | Reason | Onset | Comments | | | Date | | + +--------+ + | Diplopia | 01/09/ | | | | 2019 | | + +--------+ + Encounter Details +--------+ + + + + | Date | Type | Department | Care Team | Description | +--------+ + + + + | 01/09/ | Telephone | [facility] | Cheryl Zee MD | Diplopia | | 2019 | | [place] | [address] [place] | | | | | ENDOCRINOLOGY [address] | [address] [place] | | | | [address] [place] [address] | [address] | | | | | [place] | | | | | | [address] | | | | | | [phone] | | | +--------+ + + + [...] this encounter Miscellaneous Notes Telephone Encounter - Liya Pina RN - 01/09/2019 2:53 PM PDTCalled and spoke w/roseanne ent and advised her of Dr. Eldridge's recommendations. Patient has an appt w/her eye docto r on 01/14/19. Advised that she call us w/any changes and to f/u w/Dr. Zee next week. Pt ve rbalized understanding. P DTTelephone Encounter - Ward Eldridge MD - 01/09/2019 1:40 PM PDTI will suggest to s top the growth hormone for now. Discuss with Dr. Zee when she returns. With worsening sy mptoms patient will need to go to emergency department for possible brain imaging if indicat ed. Inform. eleph one Encounter - Liya Pina RN - 01/09/2019 12:39 PM PDTSpoke w/patient. For the past 2 weeks (approx 6 times) patient has been experiencing double vision. No headaches. Has aura s, but they are different from the auras she would have before migraines in the past. Patient just started on amlodipine 1 month ago, after seeing loan adviser. She has been on omnitrope for about 3 months. I recommended that she call her eye doctor and get appt to be seen regarding vision symptom s. If her symptoms worsen or patient has sudden loss of vision or severe headaches, she shou ld be seen more urgently. Patient reached out to her PCP's office and they advised the same. Pt verbalized understanding and will f/u w/eye doctor. documented in this encounter Plan of Treatment [...] [address] | | | | | | [address] [place] | | | | | | [place] [address] | | | | | | [phone] | | | | | | | | +--------+---------+ + + + | 09/03/ | Office | Endocrinology | Cheryl Zee MD | | | 2020 | Visit | | [address] | | | | | | [address] [place] | | | | | | [address] | | | | | | | | +--------+---------+ + + + documented as of this encounter Visit Diagnoses Not on filedocumented in this encounter"
--- OUTSIDE RECORDS SUMMARY | ~2020-01-04 | XMS | Encounter Summary ---
Demographics + + + | Address | [address] | | | [place] [address] | + + + | Home Phone | | + + + | Preferred Language | Unknown | + + + | Marital Status | | + + + | Nondenominational Affiliation | 1027 | + + + | Race | Unknown | + + + | Ethnic Group | Unknown | + + + Author + + + | Author | [facility] | | | and [place] | + + + | Organization | [facility] | | | [...] [place], | | | | | [place] [address] | | + + + + + | Ryan Vogt | ECON | Unknown | | + + + + + | Rob Vogt | ECON | Unknown | | + + + + + Care Team Providers + +------+ + | Care Creative Recruiter Name | Role | Phone | + +------+ + | Abrahan Samaniego MD | PCP | | + +------+ + Reason for Visit +--------+--------+ + | Reason | Onset | Comments | | | Date | | +--------+--------+ + | Other | 02/20/ | | | | 2018 | | +--------+--------+ + Encounter Details +--------+ + + + + | Date | Type | Department | Care Team | Description | +--------+ + + + + | 02/20/ | Telephone | [facility] | Cheryl Zee MD | Other | | 2018 | | [place] | [address] [place] | | | | | ENDOCRINOLOGY [address] | [address] [place] | | | | [address] [place] [address] | [id number] | | | | | [place] | | | | | | [address] | | | | | | [phone] | | | +--------+ + + + [...] this encounter Miscellaneous Notes Telephone Encounter - Naomi Payton RN - 02/20/2019 2:58 PM PDTLet patient know Rx was sent in for Ativan and stressed importance of having a automation driver due to the drowsiness the medication can cause. She asked how long it would affect her for. I let her know that ativa n peaks at 1-2 hours, which is why it's recommended to take 1 hour before the MRI, and can c ause drowsiness for 6-12 hours after. She verbalizes understanding of information given. elephone Encoun ter - Naomi Payton RN - 02/20/2019 2:17 PM PDTPatient reports she had previously d one ok with MRI's until the last one where her head was immobilized and had a cover over her , which caused her to feel extremely claustrophobic to where she almost had to call off the skull MRI. She says she has never taken anything like ativan before, but would like something for this upcoming MRI. She does say if she is prescribed something, then she can find a automation driver for her appointment . Please advise. Telephone Encounter - Naomi Payton RN - 02/20/2019 1:48 PM PDTSpoke to [facility] in [place]. They do not administer oral conscious sedation medications, but says it's ok if patient is prescribed it and takes it prior to her MRI as long as she has a automation driver. Please advise if you can order a medication for her. Local pharmacy is: [email or web address] in [place]. MRI is scheduled for March 08. Electronically signed by Naomi Payton RN at 02/20 2:03 PM PDTTelephone Encounter - Kim Guzman - 02/20/2019 1:03 PM PDT Ok to leave detailed message:Yes Comments/Concerns: Patient would like meds to take before MRI to help with claustrophobia. Mychart: ACTIVATED PCP: Abrahan Samaniego MD Future Appointments: Future Appointments Date Time Provider Department Center 03/08/2019 12:30 [facility]T [facility] RAD[facility]OLOG 03/09/2019 13:30 Abrahan Samaniego MD [facility] 05/10/2019 13:10 Cheryl Zee MD [facility] None 07/25/2019 12:45 [facility] Huffman [facility] documented in this encoun ter Plan of Treatment +--------+---------+ + + + | Date | Type | Specialty | Care Team | Description | +--------+---------+ + + + | 04/29/ | Office | Internal Medicine | Abrahan Samaniego MD | | 2019 | Visit | | [address] [place] [address] | | | | | | [place] | | | | | | [address] | | | | | | | | +--------+---------+ + + + | 07/25/ | Office | Cardiology | Renetta, | | | 2020 | Visit | | [facility] [address] | | | | | | [place] | | | | | | [place] [address] | | | | | | [phone] | | | | | | | | +--------+---------+ + + + | 09/03/ | Office | Endocrinology | Cheryl Zee MD | | | 2020 | Visit | | [address] [place] | | | | | | [address] [place] | | | | | | [address] | | | | | | | | +--------+---------+ + + + documented as of this encounter Visit Diagnoses Not on filedocumented in this encounter"
--- OUTSIDE RECORDS SUMMARY | ~2020-01-04 | XMS | Encounter Summary ---
Demographics + + + | Address | [address] | | | [place] [address] | + + + | Home Phone | | + + + | Preferred Language | Unknown | + + + | Marital Status | | + + + | Mandaeism Affiliation | 1027 | + + + | Race | Unknown | + + + | Ethnic Group | Unknown | + + + Author + + + | Author | [facility] | | | and [place] | + + + | Organization | [facility] | | | [...] [place], | | | | | [place] [address] | | + + + + + | Ryan Vogt | ECON | Unknown | | + + + + + | Rob Vogt | ECON | Unknown | | + + + + + Care Team Providers + +------+ + | Care Obstetrician Gynecologist Name | Role | Phone | + +------+ + | Abrahan Samaniego MD | PCP | | + +------+ + Reason for Referral Evaluate & Treat (Emergency) +--------+--------+ + + + + | Status | Reason | Specialty | Diagnoses / | Referred By | Referred To | | | | | Procedures | Contact | Contact | +--------+--------+ + + + + | Closed | | Massage | Diagnoses | Aden, | HEALTH | | | | Therapist | Back pain, | Abrahan Cortez MD | [facility] | | | | | unspecified | [address] | THERAPEUTIC | | | | | back | STRE[address] | [address] | | | | | location, | [place], | [address] | | | | | unspecified | [place] [address] | [address] | | | | | back pain | Phone: | [place], | | | | | laterality, | [phone] | [place] [address] | | | | | unspecified | Fax: | Phone: | | | | | chronicity | [phone] | [phone] | | | | | Hand pain, | | Fax: | | | | | right | | [phone] | +--------+--------+ + + + + Reason for Visit + +--------+ + | Reason | Onset | Comments | | | Date | | + +--------+ + | Referral | 05/03/ | | | | 2016 | | + +--------+ + Encounter Details +--------+ + + + + | Date | Type | Department | Care Team | Description | +--------+ + + + + | 05/03/ | Telephone | [facility] | Abrahan Samaniego MD | Referral | | 2016 | | [address] | [address] [place] [address] | | | | | [place], | [place] | | | | | [place] [address] | [address] | | | | | [phone] | | | +--------+ + + + [...] Telephone Encounter - Christina Wilson LPN - 05/03/2017 2:09 PM PSTReferral entered - roseanne ent notified. elephon e Encounter - Aden Mar - 05/03/2017 12:50 PM PSTPt returning call stated appointment for [email or web address] is tomorrow 05/04/17 and is requesting this referral for therapeutic message . elephone Encounter - Aden Lamar - 05/03/2017 12:20 PM PSTContact/Caller: Oliva Contact Number: [phone] Provider/Nurse: Aden Reason for Call: Pt calling in requesting for referral to be sent to [email or web address] as she has appointment 05/11/17. Last Appointment: 10/20/16 Next Appointment: 05/27/17 documented in this encoun ter Plan of Treatment +--------+---------+ + + + | Date | Type | Specialty | Care Team | Description | +--------+---------+ + + + | 04/29/ | Office | Internal Medicine | Abrahan Samaniego MD | | | 2019 | Visit | | [address] [place] [address] | | | | | | [place] | | | | | | [address] | | | | | | | | +--------+---------+ + + + | 07/25/ | Office | Cardiology | Renetta, | | | 2020 | Visit | | [facility] [address] | | | | | | [place], | | | | | | [place] [address] | | | | | | [phone] | | | | | | | | +--------+---------+ + + + | 09/03/ | Office | Endocrinology | Cheryl Zee MD | | | 2020 | Visit | | [address] [place] [address] | | | | | | [address] [place] | | | | | | [address] | | | | | | | | +--------+---------+ + + + + + +--------+ + + | Name | Type | Priori | Associated Diagnoses | Order Schedule | | | | ty | | | + + +--------+ + + | Ambulatory referral | Outpatient | STAT | Back Pain, | Ordered: 05/03/2017 | | to Massage Therapy | Referral | | Unspecified Back | | | | | | Location, | | | | | | Unspecified Back | | | | | | Pain Laterality, | | | | | | Unspecified | | | | | | Chronicity Hand | | | | | | pain, right | | + + +--------+ + + documented as of this encounter Visit Diagnoses + + | Diagnosis | + + | Back pain, unspecified back location, unspecified back pain laterality, unspecified | | chronicity - Primary | + + | Hand pain, right Pain in limb | + + documented in this encounter"
--- OUTSIDE RECORDS SUMMARY | ~2020-01-04 | XMS | Encounter Summary ---
Demographics + + + | Address | [address] | | | [place] [address] | + + + | Home Phone | | + + + | Preferred Language | Unknown | + + + | Marital Status | | + + + | Tenriism Affiliation | 1027 | + + + | Race | Unknown | + + + | Ethnic Group | Unknown | + + + Author + + + | Author | [facility] | | | and [place] | + + + | Organization | [facility] | | | [...] [place], | | | | | [place] [address] | | + + + + + | Ryan Vogt | ECON | Unknown | | + + + + + | Rob Vogt | ECON | Unknown | | + + + + + Care Team Providers + +------+ + | Care Textiles Sales Representative Name | Role | Phone | + +------+ + | Abrahan Samaniego MD | PCP | | + +------+ + Encounter Details +--------+ + + + + | Date | Type | Department | Care Team | Description | +--------+ + + + + | 09/08/ | Hospital | [facility] | Cheryl Zee MD | Other disorders of | | 2015 | Encounter | [facility] | [address] [place] | bone and | | | | [address] | [address] [place], [place] | cartilage(733.99) | | | | [place] | [id number] | (Primary Dx); | | | | [address] | | Hyperlipidemia | | | | [phone] | | | +--------+ + + + [...] + + + +---------+ + + | omeprazole | Take 1 capsule by | 30 | 0 | 09/04/19 | | | (PRILOSEC) 20 mg | mouth Daily. | capsule | | 15 | 6 | | capsule | | | | | | + [...] | | | | | | [place] [address] | | | | | | [phone] | | | | | | | | +--------+---------+ + + + | 09/03/ | Office | Endocrinology | Cheryl Zee MD | | | 2020 | Visit | | [address] [place] | | | | | | [address] [place] | | | | | | [id number] | | | | | | | | +--------+---------+ + + + documented as of this encounter Procedures + +--------+ + + + | Procedure Name | Priori | Date/Time | Associated Diagnosis | Comments | | | ty | | | | + +--------+ + + + | LIPID PANEL | Routin | 09/08/2014 | Hyperlipidemia | Results for this | | | e | 9:10 AM | | procedure are in the | | | | PDT | | results section. | + +--------+ + + + | VITAMIN D, | Routin | 09/08/2014 | Other disorders of | Results for this | | DEFICIENCY SCREEN | e | 9:10 AM | bone and | procedure are in the | | (25-HYDROXY) | | PDT | cartilage(733.99) | results section. | + +--------+ + + + documented in this encounter Results Vitamin D, 25-Hydroxy (09/08/2014 9:10 AM PDT) + +-------+ + + + | Component | Value | Ref Range | Performed | Pathologist | | | | | At | Signature | + +-------+ + + + | Vitamin D, | 42 | 30 - 80 ng/mL | [facility] | | | 25 Hydroxy | | | [facility] | | [...] + | [facility] | [address] | [place] | [phone] | | [facility] | | [address] | | | - LABORATORY | | | | + + + + + Lipid Panel (09/08/2014 9:10 AM PDT) + +---------+ + + + | Component | Value | Ref Range | Performed | Pathologist | | | | | At | Signature | + +---------+ + + + | Triglycerid | 123 | 35 - 160 mg/dL | [facility] | | | es | | | [facility] | | | | | | [facility] | | | | | | C[facility] - | | | | | | LABORATORY | | + +---------+ + + + | Cholesterol | 254 (H) | 150 - 200 mg/dL | [facility] | | | | | | [facility] | | | | | | MEDICAL | | | | | | CENTER - | | | | | | LABORATORY | | + +---------+ + + + | HDL | 55 | 29 - 89 mg/dL | [facility] | | | | | | [facility] | | | | | | MEDICAL | | | | | | CENTER - | | | | | | LABORATORY | | + +---------+ + + + | Chol/HDL | 4.6 | | [facility] | | | Ratio | | | [facility] | | | | | | MEDICAL | | | | | | CENTER - | | | | | | LABORATORY | | + +---------+ + + + | LDL, | 174 (H) | <=130 mg/dL | [facility] | | | Calculated | | | [facility] | | | | | | MEDICAL | | | | | | CENTER - | | | | | | LABORATORY | | + +---------+ + + + + + | Specimen | + + | Blood | + + + + + + + | Performing | Address | City/State/Zipcode | Phone Number | | Organization | | | | + + + + + | [facility] 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
--- OUTSIDE RECORDS SUMMARY | ~2020-01-04 | XMS | Encounter Summary ---
Demographics + + + | Address | [address] | | | [place] [address] | + + + | Home Phone | | + + + | Preferred Language | Unknown | + + + | Marital Status | | + + + | Spiritism Affiliation | 1027 | + + + | Race | Unknown | + + + | Ethnic Group | Unknown | + + + Author + + + | Author | [facility] | | | and [...] [place], | | | | | [place] [address] | | + + + + + | Ryan Vogt | ECON | Unknown | | + + + + + | Rob Vogt | ECON | Unknown | | + + + + + Care Team Providers + +------+ + | Care Apprentice Architect Name | Role | Phone | + +------+ + | Abrahan Samaniego MD | PCP | | + +------+ + Reason for Visit + + + | Reason | Comments | + + + | Swelling | bilateral foot swelling | + + + Encounter Details +--------+---------+ + + + | Date | Type | Department | Care Team | Description | +--------+---------+ + + + | 10/20/ | Office | [facility] | Abrahan Samaniego MD | Arthritis of first | | 2017 | Visit | [address] | [address] [place] [address] | MTP joint (Primary | | | | [place], | [place] | Dx) | | | | [place] [address] | [address] | | | | | [phone] | | | +--------+---------+ + + + [...] + + + | Blood Pressure | 118/64 | 10/20/2016 11:42 AM | | | | | PDT | | + + + + + | Pulse | 72 | 10/20/2016 11:42 AM | | | | | PDT | | + + + + + | Temperature | 36.2 C (97.2 F) | 10/20/2016 11:42 AM | | | | | PDT | | + + + + + | Respiratory Rate | 16 | 10/20/2016 11:42 AM | | | | | PDT | | + + + + + | Oxygen Saturation | 98% | 10/20/2016 11:42 AM | | | | | PDT | | + + + + + | Inhaled Oxygen | - | - | | | Concentration | | | | + + + + + | Weight | 66.7 kg (147 lb 1.6 | 10/20/2016 11:42 AM | | | | oz) | PDT | | + + + + + | Height | - | - | | + + + + + | Body Mass Index | 25.25 | 09/22/2016 4:19 PM | | | | | PDT | | + + + + + documented in this encounter Progress Notes Abrahan Samaniego MD - 10/20/2016 11:48 AM PDT 10/20/2016 Oliva Vogt 1950 History: Oliva Vogt is a 66 y.o. female here for : FOOT PAIN: She says that over the last year she has had some changes in her feet at the fir st MTP joints. The left is worse than the right and her shoes aren't fitting as well. She has pain in her feetat that joint when she is standing and walking.Her tennis shoes are "awesome" and she says that she does ok with them. Current Outpatient Rx Name Route Sig Dispense Refill atorvaSTATin (LIPITOR) 10 mg tablet take 1 tablet by mouth NIGHTLY 90 tablet 2 Cxwfemo-Ksflqxuky-Zprygzq D (CALCIUM MAGNESIUM PO) Oral Take by mouth. cholecalciferol (VITAMIN D-3) 1,000 units tablet Oral Take 1,000 Units by mouth Daily. levothyroxine (SYNTHROID, LEVOTHROID) 100 mcg tablet Oral Take 1 tablet by mouth every morning (before breakfast). 90 tablet 3 predniSONE (DELTASONE) 5 mg tablet Oral Take 1 tablet by mouth Daily. 90 tablet 3 Allergies Allergen Reactions Succinylcholine Chloride Other (See Comments) Hard to wake up Review of Systems: No associated numbness, tingling, weakness. Physical Exam: BP 118/64 mmHg | Pulse 72 | Temp(Src) 36.2 C (97.2 F) (Temporal) | Resp 16 | Wt 66.724 kg (147 lb 1.6 oz) | SpO2 98% Gen.: Female in no acute distress. Feet: Both MTP joints are prominent and slightly hypertrophic. She has some tenderness on the left MTP joint of the great toe. Good range of motion. Assessment: Plan 1. 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 Left more than right. Her concern was that she might be having rheumatoid arthritis. I don't think that's the case. She does n't describe any AM stiffness, gelling, swelling. She's given reassurance. Advised to wear comfortable shoes, no high heels, wide toe box. Consider SAS dress shoes. documented in this enc ounter Plan of Treatment +--------+---------+ + + + | Date | Type | Specialty | Care Team | Description | +--------+---------+ + + + | 04/29/ | Office | Internal Medicine | Abrahan Samaniego MD | | | 2019 | Visit | | [address] [place] [address] | | | | | | [place] | | | | | | [id number] | | | | | | | | +--------+---------+ + + + | 07/25/ | Office | Cardiology | Renetta, | | | 2020 | Visit | | [facility] [address] | | | | | | [place], | | | | | | [place] [address] | | | | | | [phone] | | | | | | | | +--------+---------+ + + + | 09/03/ | Office | Endocrinology | Cheryl Zee MD | | | 2020 | Visit | | [address] [place] | | | | | | [address] [place] | | | | | | [address] | | | | | | | | +--------+---------+ + + + documented as of this encounter Visit Diagnoses + + | Diagnosis | + + | Arthritis of first MTP joint - Primary Osteoarthrosis, unspecified whether | | generalized or localized, ankle and foot | + + documented in this encounter
--- OUTSIDE RECORDS SUMMARY | ~2020-01-04 | XMS | Encounter Summary ---
Demographics + + + | Address | [address] | | | [place] [address] | + + + | Home Phone | | + + + | Preferred Language | Unknown | + + + | Marital Status | | + + + | Amish Affiliation | 1027 | + + + | Race | Unknown | + + + | Ethnic Group | Unknown | + + + Author + + + | Author | [facility] | | | and [...] [place], | | | | | [place] [address] | | + + + + + | Ryan Vogt | ECON | Unknown | | + + + + + | Rob Vogt | ECON | Unknown | | + + + + + Care Team Providers + +------+ + | Care Consulting Technical Director Name | Role | Phone | + +------+ + | Abrahan Samaniego MD | PCP | | + +------+ + Encounter Details +--------+ + + + + | Date | Type | Department | Care Team | Description | +--------+ + + + + | 06/08/ | Orders Only | [facility] | Cheryl Zee MD | Growth hormone | | 2019 | | [place] | [address] [place] | deficiency (HCC) | | | | ENDOCRINOLOGY [address] | [address] [place], [place] | (Primary Dx); | | | [address] | [address] | Secondary adrenal | | | | [place] | | insufficiency (HCC); | | | | [address] | | Secondary | | | | [phone] | | hyperparathyroidism | | | | | | (HCC); Stage 3 | | | | | | chronic kidney | | | | | | disease (HCC) | +--------+ + + + + Social [...] [place] | | | | | | [address] | | | | | | | | +--------+---------+ + + + | 07/25/ | Office | Cardiology | Renetta, | | | 2020 | Visit | | [facility] [address] | | | | | | [place] | | | | | | [place] [address] | | | | | | [phone] | | | | | | | | +--------+---------+ + + + | 09/03/ | Office | Endocrinology | Cheryl Zee MD | | | 2020 | Visit | | [address] [place] | | | | | | [address] [place] | | | | | | [address] | | | | | | | | +--------+---------+ + + + documented as of this encounter Results CBC with Differential (08/16/2018 8:27 AM PDT) + +-------+ + + + | Component | Value | Ref Range | Performed | Pathologist | | | | | At | Signature | + +-------+ + + + | White Blood | 7.1 | 4.0 - 11.0 K/uL | [facility] | | | Cells | | | [facility] | [facility] | [facility] | | | | | | [facility] - | | | | | | LABORATORY | | + +-------+ + + + | Red Blood | 4.96 | 3.70 - 5.20 | [facility] | | | Cells | | M/uL | [facility] | | | | | | MED[facility] | | | | | | CENTER - | | | | | | LABORATORY | | + +-------+ + + + | Hemoglobin | 14.8 | 11.5 - 16.0 | [facility] | | | | | g/dL | [facility] | | | | | | [facility] | | | | | | CENTER - | | | | | | LABORATORY | | + +-------+ + + + | Hematocrit | 44.1 | 34.0 - 47.0 % | [facility] | | | | | | [facility] | | | | | | [facility] | | | | | | CENTER - | | | | | | LABORATORY | | + +-------+ + + + | MCV | 88.9 | 83.0 - 101.0 fL | [facility] | | | | | | [facility] | | | | | | MED[facility] | | | | | | CENTER - | | | | | | LABORATORY | | + +-------+ + + + | MCH | 29.8 | 28.0 - 35.0 pg | [facility] | | | | | | [facility] | | | | | | [facility] | | | | | | CENTER - | | | | | | LABORATORY | | + +-------+ + + + | MCHC | 33.6 | 32.0 - 36.0 | [facility] | | | | | g/dL | [facility] | | | | | | MEDICAL | | | | | | CENTER - | | | | | | LABORATORY | | + +-------+ + + + | RDW-CV | 13.0 | <15.0 % | [facility] | | | | | | [facility] | | | | | | MEDICAL | | | | | | CENTER - | | | | | | LABORATORY | | + +-------+ + + + | RDW-SD | 42.4 | 35.1 - 46.3 fL | [facility] | | | | | | [facility] | | | | | | MEDICAL | | | | | | CENTER - | | | | | | LABORATORY | | + +-------+ + + + | Platelet | 300 | 140 - 440 K/uL | [facility] | | | Count | | | [facility] | | | | | | MEDICAL | | | | | | CENTER - | | | | | | LABORATORY | | + +-------+ + + + | MPV | 9.9 | 6.5 - 12.4 fL | [facility] | | | | | | [facility] | | | | | | MEDICAL | | | | | | CENTER - | | | | | | LABORATORY | | + +-------+ + + + | % | 54.0 | 45.0 - 82.0 % | [facility] | | | Neutrophils | | | [facility] | | | | | | MEDICAL | | | | | | CENTER - | | | | | | LABORATORY | | + +-------+ + + + | % | 34.9 | 20.0 - 45.0 % | [facility] | | | Lymphocytes | | | [facility] | | | | | | MEDICAL | | | | | | CENTER - | | | | | | LABORATORY | | + +-------+ + + + | % Monocytes | 9.8 | 4.0 - 12.0 % | [facility] | | | | | | [facility] | | | | | | MEDICAL | | | | | | CENTER - | | | | | | LABORATORY | | + +-------+ + + + | % | 0.6 | 0.0 - 5.0 % | [facility] | | | Eosinophils | | | [facility] | | | | | | MEDICAL | | | | | | CENTER - | | | | | | LABORATORY | | + +-------+ + + + | % Basophils | 0.4 | 0.0 - 1.0 % | [facility] | | | | | | [facility] | | | | | | MEDICAL | | | | | | CENTER - | | | | | | LABORATORY | | + +-------+ + + + | % Immature | 0.3 | 0.0 - 0.4 % | [facility] | | | Granulocyte | | | [facility] | | | s | | | MEDICAL | | | | | | CENTER - | | | | | | LABORATORY | | + +-------+ + + + | Absolute | 3.86 | 1.80 - 8.50 | [facility] | | | Neutrophils | | K/uL | [facility] | | | | | | [facility] | | | | | | CENTER - | | | | | | LABORATORY | | + +-------+ + + + | Absolute | 2.49 | 0.60 - 3.20 | [facility] | | | Lymphocytes | | K/uL | [facility] | | | | | | [facility] | | | | | | CENTER - | | | | | | LABORATORY | | + +-------+ + + + | Absolute | 0.70 | 0.00 - 1.00 | [facility] | | | Monocytes | | K/uL | [facility] | | | | | | [facility]ICAL | | | | | | CENTER - | | | | | | LABORATORY | | + +-------+ + + + | Absolute | 0.04 | 0.00 - 0.40 | [facility] | | | Eosinophils | | K/uL | [facility] | | | | | | [facility] | | | | | | CENTER - | | | | | | LABORATORY | | + +-------+ + + + | Absolute | 0.03 | 0.00 - 0.10 | [facility] | | | Basophils | | K/uL | [facility] | | | | | | MEDICAL | | | | | | CENTER - | | | | | | LABORATORY | | + +-------+ + + + | Absolute | 0.02 | 0.00 - 0.03 | [facility] | | | Immature | | K/uL | [facility] | | | Granulocyte | | | MEDICAL | | | s | | | CENTER - | | | | | | LABORATORY | | + +-------+ + + + | % nRBC | 0 | 0 - 2 per 100 | [facility] | | | | | WBC's | [facility] | | | | | | MEDICAL | | | | | | CENTER - | | | | | | LABORATORY | | + +-------+ + + + | Absolute | 0.00 | 0.00 - 0.01 | [facility] | | | nRBC | | K/uL | [facility] | | | | | [...] + | [facility] | [address] | [place] | [phone] | | [facility] | | [address] | | | - LABORATORY | | | | + + + + + Lipid Panel (08/16/2018 8:27 AM PDT) + +-------+ + + + | Component | Value | Ref Range | Performed | Pathologist | | | | | At | Signature | + +-------+ + + + | Triglycerid | 105 | <=150 mg/dL | [facility] | | | es | | | [facility] | | | | | | MEDICAL | | | | | | CENTER - | | | | | | LABORATORY | | + +-------+ + + + | Cholesterol | 173 | <=200 mg/dL | [facility] | | | | | | [facility] | | | | | | MEDICAL | | | | | | CENTER - | | | | | | LABORATORY | | + +-------+ + + + | HDL | 49 | 40 - 60 mg/dL | [facility] | | | | | | [facility] | | | | | | MEDICAL | | | | | | CENTER - | | | | | | LABORATORY | | + +-------+ + + + | Chol/HDL | 3.5 | | [facility] | | | Ratio | | | [facility] | | | | | | MEDICAL | | | | | | CENTER - | | | | | | LABORATORY | | + +-------+ + + + | LDL, | 103 | <=130 mg/dL | [facility] | | | Calculated | | | [facility] | | [...] ST. | [address] | [place], [place] | [phone] | | [facility] | | [address] | | | - LABORATORY | | | | + + + + + Prolactin (08/16/2018 8:27 AM PDT) + +---------+ + + + | Component | Value | Ref Range | Performed | Pathologist | | | | | At | Signature | + +---------+ + + + | Prolactin | 1.9 (L) | 4.8 - 23.3 | [facility] | | | | | ng/mL | LAB [facility] | | | | | | [facility] | | + +---------+ + + + + + | Specimen | + + | Blood | + + + + + | Narrative | Performed At | + + + | Performed at: 01 - [facility] [place] [address], | REFERENCE LAB | | [place], [place] [id number] Diamond Die Polisher: Abelardo Gayle MD, Phone: | [facility] | | [phone] | | + + + + + + + + | Performing | Address | City/State/Zipcode | Phone Number | | Organization | | | | + + + + + | REFERENCE LAB | [address] | [place], [place] | [phone] | | [facility] | [place] | [address] | | + + + + + Insulin-Like Growth Factor 1 (08/16/2018 8:27 AM PDT) + +--------+ + + + | Component | Value | Ref Range | Performed | Pathologist | | | | | At | Signature | + +--------+ + + + | Insulin-lik | 31 (L) | 38 - 163 ng/mL | [facility] | | | e Growth | | | LAB [facility] | | | Factor 1 | | | - [facility] | | + +--------+ + + + + + | Specimen | + + | Blood | + + + + + | Narrative | Performed At | + + + | Performed at: 01 - [facility] [address], | REFERENCE LAB | | [place] [id number] Diamond Die Polisher: Sheron Vera MD, Phone: | [facility] [place] | | [phone] | | + + + + + + + + | Performing | Address | City/State/Zipcode | Phone Number | | Organization | | | | + + + + + | REFERENCE LAB | [address] | [place], [place] | [phone] | | [facility] | Drive [facility] | [address] | | + + + + + Comprehensive Metabolic Panel (08/16/2018 8:27 AM PDT) + +---------+ + + + | Component | Value | Ref Range | Performed | Pathologist | | | | | At | Signature | + +---------+ + + + | Na | 141 | 136 - 145 | [facility] | | | | | mmol/L | [facility] | | | | | | MEDICAL | | | | | | CENTER - | | | | | | LABORATORY | | + +---------+ + + + | K | 3.5 | 3.4 - 5.1 | [facility] | | | | | mmol/L | [facility] | | | | | | MEDICAL | | | | | | CENTER - | | | | | | LABORATORY | | + +---------+ + + + | Cl | 107 | 98 - 107 mmol/L | [facility] | | | | | | [facility] | | | | | | MEDICAL | | | | | | CENTER - | | | | | | LABORATORY | | + +---------+ + + + | CO2 | 30 | 20 - 31 mmol/L | [facility] | | | | | | [facility] | | | | | | MEDICAL | | | | | | CENTER - | | | | | | LABORATORY | | + +---------+ + + + | Anion Gap | 4 | 3 - 16 mmol/L | [facility] | | | | | | [facility] | | | | | | MEDICAL | | | | | | CENTER - | | | | | | LABORATORY | | + +---------+ + + + | Glucose | 82 | 60 - 106 mg/dL | [facility] | | | | | | [facility] | | | | | | MEDICAL | | | | | | CENTER - | | | | | | LABORATORY | | + +---------+ + + + | BUN | 17 | 9 - 23 mg/dL | [facility] | | | | | | [facility] | | | | | | MEDICAL | | | | | | CENTER - | | | | | | LABORATORY | | + +---------+ + + + | Creatinine | 1.00 | 0.55 - 1.02 | [facility] | | | | | mg/dL | [facility] | | | | | | MEDICAL | | | | | | CENTER - | | | | | | LABORATORY | | + +---------+ + + + | eGFR, | 55 (L) | >=60 | [facility] | | | non- | | mL/min/1.73m2 | [facility] | | | [place] | | | MEDICAL | | | | | | CENTER - | | | | | | LABORATORY | | + +---------+ + + + | Calcium | 9.8 | 8.7 - 10.4 | [facility] | | | | | mg/dL | [facility] | | | | | | MEDICAL | | | | | | CENTER - | | | | | | LABORATORY | | + +---------+ + + + | Albumin | 4.2 | 3.2 - 4.8 g/dL | [facility] | | | | | | [facility] | | | | | | MEDICAL | | | | | | CENTER - | | | | | | LABORATORY | | + +---------+ + + + | Bilirubin | 0.7 | 0.3 - 1.2 mg/dL | [facility] | | | Total | | | [facility] | | | | | | MEDICAL | | | | | | CENTER - | | | | | | LABORATORY | | + +---------+ + + + | Total | 6.3 | 5.7 - 8.2 g/dL | [facility] | | | Protein | | | [facility] | | | | | | MEDICAL | | | | | | CENTER - | | | | | | LABORATORY | | + +---------+ + + + | AST | 20 | 0 - 34 U/L | [facility] | | | | | | [facility] | | | | | | MEDICAL | | | | | | CENTER - | | | | | | LABORATORY | | + +---------+ + + + | ALT | 24 | 10 - 49 U/L | [facility] | | | | | | [facility] | | | | | | MEDICAL | | | | | | CENTER - | | | | | | LABORATORY | | + +---------+ + + + | Alkaline | 80 | 46 - 116 U/L | [facility] | | | Phosphatase | | | [facility] | | | | | | MEDICAL | | | | | | CENTER - | | | | | | LABORATORY | | + +---------+ + + + | Globulin | 2.1 | 2.1 - 3.8 g/dL | [facility] | | | | | | [facility] | | | | | | MEDICAL | | | | | | CENTER - | | | | | | LABORATORY | | + +---------+ + + + | Albumin/Rachel | 2.0 (H) | 0.8 - 1.9 | [facility] | | | bulin Ratio | | | [facility] | | | | | | MEDICAL | | | | | | CENTER - | | | | | | LABORATORY | | + +---------+ + + + | BUN/Creatin | 17.0 | | [facility] | | | ine Ratio | | | . [facility] | | | | | | [...] + | [facility] | [address] | [place] | [phone] | | [facility] | | [address] | | | - LABORATORY | | | | + + + + + T4, Free (08/16/2018 8:27 AM PDT) + +-------+ + + + | Component | Value | Ref Range | Performed | Pathologist | | | | | At | Signature | + +-------+ + + + | FT4 | 1.0 | 0.9 - 1.8 ng/dL | [facility] | | | | | [address] | [place] | [phone] | | [facility] | | [address] | | | - LABORATORY | | | | + + + + + TSH (08/16/2018 8:27 AM PDT) + + + + + + | Component | Value | Ref Range | Performed | Pathologist | | | | | At | Signature | + + + + + + | TSH | 0.05 (L) | 0.55 - 4.78 | [facility] | | | | | uIU/mL | [facility] | | | | [...] + | [facility] | [address] | [place] | [phone] | | [facility] | | [address] | | | - LABORATORY | | | | + + + + + Parathyroid Hormone, Intact (08/16/2018 8:27 AM PDT) + +--------+ + + + | Component | Value | Ref Range | Performed | Pathologist | | | | | At | Signature | + +--------+ + + + | PTH Intact | 98 (H) | 19 - 88 pg/mL | [facility] | | | | | | [facility] | | | | | | MEDICAL | | | | | | CENTER - | | | | | | LABORATORY | | + +--------+ + + + + + | Specimen | + + | Blood | + + + + + + + | Performing | Address | City/State/Zipcode | Phone Number | | Organization | | | | + + + + + | [facility] | [address] | [place] | [phone] | | [facility] | | [address] | | | - LABORATORY | | | | + + + + + Vitamin D, Deficiency Screen (25-Hydroxy) (08/16/2018 8:27 AM PDT) + +-------+ + + + | Component | Value | Ref Range | Performed | Pathologist | | | | | At | Signature | + +-------+ + + + | Vitamin D, | 38 | 30 - 100 ng/mL | [facility] | | | 25 Hydroxy | | | [facility] | | [...] ST. | [address] | [place], [place] | [phone] | | [facility] | | [address] | | | - LABORATORY | | | | + + + + + Phosphorus (08/16/2018 8:27 AM PDT) + +-------+ + + + | Component | Value | Ref Range | Performed | Pathologist | | | | | At | Signature | + +-------+ + + + | Phosphorus | 2.5 | 2.4 - 5.1 mg/dL | [facility] | | | | | [...] + + | [facility] 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
--- OUTSIDE RECORDS SUMMARY | ~2020-01-04 | XMS | Encounter Summary ---
Demographics + + + | Address | [address] | | | [place] [address] | + + + | Home Phone | | + + + | Preferred Language | Unknown | + + + | Marital Status | | + + + | Christianity Affiliation | 1027 | + + + | Race | Unknown | + + + | Ethnic Group | Unknown | + + + Author + + + | Author | [facility] | | | and [...] [place], | | | | | [place] [address] | | + + + + + | Ryan Vogt | ECON | Unknown | | + + + + + | Rob Vogt | ECON | Unknown | | + + + + + Care Team Providers + +------+ + | Care Closing Coordinator Name | Role | Phone | + +------+ + | Abrahan Samaniego MD | PCP | | + +------+ + Reason for Visit + +--------+ + | Reason | Onset | Comments | | | Date | | + +--------+ + | Results | 08/20/ | | | | 2018 | | + +--------+ + | Medication | 08/20/ | | | Management | 2018 | | + +--------+ + Encounter Details +--------+ + + + + | Date | Type | Department | Care Team | Description | +--------+ + + + + | 08/20/ | Telephone | [facility] | Abrahan Samaniego MD | Results; Medication | | 2018 | | MEDICINE [address] | [address] [facility] | Management | | | | [place], | [place] | | | | | [place] [address] | [address] | | | | | [phone] | | | +--------+ + + + [...] Telephone Encounter - Christina Wilson LPN - 08/20/2017 11:47 AM PDTPatient notified and is scheduled. elephone Encounter - Abrahan Samaniego MD - 08/20/2017 7:42 AM PDTNeeds 15 min appt to address her [employer] and to start on medication for her bone loss from the chronic steroid use. Electron maria my signed by Abrahan Samaniego MD at 08/20/2017 7:43 AM PDTdocumented in this encounter Plan of Treatment +--------+---------+ + + + | Date | Type | Specialty | Care Team | Description | +--------+---------+ + + + | 04/29/ | Office | Internal Medicine | Abrahan Samaniego MD | | | 2019 | Visit | | [address] [place] [address] | | | | | | [place] | | | | | | [address] | | | | | | | | +--------+---------+ + + + | 07/25/ | Office | Cardiology | Renetta, | | | 2020 | Visit | | [facility] [address] | | | | | | [place] | | | | | | [place] [address] | | | | | | [phone] | | | | | | | | +--------+---------+ + + + | 09/03/ | Office | Endocrinology | Cheryl Zee MD | | | 2020 | Visit | | [address] | | | | | | [address] [place] | | | | | | [id number] | | | | | | | | +--------+---------+ + + + documented as of this encounter Visit Diagnoses Not on filedocumented in this encounter"
--- OUTSIDE RECORDS SUMMARY | ~2020-01-04 | XMS | Encounter Summary ---
Demographics + + + | Address | [address] | | | [place] [address] | + + + | Home Phone | | + + + | Preferred Language | Unknown | + + + | Marital Status | | + + + | Methodist Affiliation | 1027 | + + + | Race | Unknown | + + + | Ethnic Group | Unknown | + + + Author + + + | Author | [facility] | | | and [place] | + + + | Organization | [facility] | | | [...] [place], | | | | | [place] [address] | | + + + + + | Ryan Vogt | ECON | Unknown | | + + + + + | Rob Vogt | ECON | Unknown | | + + + + + Care Team Providers + +------+ + | Care Casket Trimmer Name | Role | Phone | + +------+ + | Abrahan Samaniego MD | PCP | | + +------+ + Reason for Visit +--------+--------+ + | Reason | Onset | Comments | | | Date | | +--------+--------+ + | Other | 07/06/ | | | | 2019 | | +--------+--------+ + Encounter Details +--------+ + + + + | Date | Type | Department | Care Team | Description | +--------+ + + + + | 07/06/ | Telephone | [facility] | Cheryl Zee MD | Other | | 2019 | | [place] | [address] [place] | | | | | ENDOCRINOLOGY [address] | [address] [place] | | | | | [address] [place] [address] | [phone] | | | | | [place] | | | | | | [address] | | | | | | [phone] | | | +--------+ + + + [...] Telephone Encounter - Liz Hirsch CMA - 07/10/2019 2:30 PM PSTCalled [facility] lab they are c hecking into this. I called the billing department. Spoke with Tracy. Faxing a note wi th the revised codes and they will rebill for the vitamin D level. Notified patient, told h er they said it would be a week before we hear anything. elephone Encounter - Gricelda Liu - 07/06/2019 2:36 PM PST Patient is calling about: Vitamin D screening and testing Paperwork: Referrals: Other: Okay to leave detailed message: yes Comment: Patient would like a return call Concerned about the test she received isn't cove red under her insurance. Unless its part of her disease. She would like to know. Mychart: ACTIVATED PCP: Abrahan Samaniego MD Future Appointments: Future Appointments Date Time Provider Department [place] 07/25/2019 12:45 PM [facility]man [facility] 11/17/2019 2:30 PM Cheryl Zee MD [facility] None 04/29/2020 1:30 PM Abrahan Samaniego MD [facility] documented in this en counter Plan of Treatment +--------+---------+ + + + | Date | Type | Specialty | Care Team | Description | +--------+---------+ + + + | 04/29/ | Office | Internal Medicine | Abrahan Samaniego MD | | | 2019 | Visit | | [address] | | | | | | [place] | | | | | | [address] | | | | | | | | +--------+---------+ + + + | 07/25/ | Office | Cardiology | Renetta, | | | 2020 | Visit | | [facility] [address] | | | | | | [facility] [place] | | | | | | [place] [address] | | | | | | [phone] | | | | | | | | +--------+---------+ + + + | 09/03/ | Office | Endocrinology | Cheryl Zee MD | | | 2020 | Visit | | [address] | | | | | | [address] [place] | | | | | | [phone] | | | | | | | | +--------+---------+ + + + documented as of this encounter Visit Diagnoses Not on filedocumented in this encounter"
--- OUTSIDE RECORDS SUMMARY | ~2020-01-04 | XMS | Encounter Summary ---
Demographics + + + | Address | [address] | | | [place] [address] | + + + | Home Phone | | + + + | Preferred Language | Unknown | + + + | Marital Status | | + + + | Zoroastrianism Affiliation | 1027 | + + + | Race | Unknown | + + + | Ethnic Group | Unknown | + + + Author + + + | Author | [facility] | | | and [place] | [...] [place], | | | | | [place] [address] | | + + + + + | Ryan Vogt | ECON | Unknown | | + + + + + | Rob Vogt | ECON | Unknown | | + + + + + Care Team Providers + +------+ + | Care Etl Application Developer Name | Role | Phone | + +------+ + | Abrahan Samaniego MD | PCP | | + +------+ + Encounter Details +--------+ + + + + | Date | Type | Department | Care Team | Description | +--------+ + + + + | 03/07/ | Hospital | [facility] | Abrahan Samaniego MD | | | 2009 | Encounter | [facility] | [address] [facility] | | | | | [address] | [place] | | | | | [place] | [address] | | | | | [address] | | | | | | [phone] | | | +--------+ + + + [...] [place] | | | | | | [id number] | | | | | | | | +--------+---------+ + + + | 07/25/ | Office | Cardiology | Renetta, | | | 2020 | Visit | | [facility] [address] | | | | | | [place] | | | | | | [place] [address] | | | | | | [phone] | | | | | | | | +--------+---------+ + + + | 09/03/ | Office | Endocrinology | Cheryl Zee MD | | | 2020 | Visit | | [address] | | | | | | [address] [place] | | | | | | [address] | | | | | | | | +--------+---------+ + + + documented as of this encounter Visit Diagnoses Not on filedocumented in this encounter"
--- OUTSIDE RECORDS SUMMARY | ~2020-01-04 | XMS | Encounter Summary ---
Demographics + + + | Address | [address] | | | [place] [address] | + + + | Home Phone | | + + + | Preferred Language | Unknown | + + + | Marital Status | | + + + | Mormonism Affiliation | 1027 | + + + | Race | Unknown | + + + | Ethnic Group | Unknown | + + + Author + + + | Author | [facility] | | | and [place] | + + + | Organization | [facility] | | [...] [place], | | | | | [place] [address] | | + + + + + | Ryan Vogt | ECON | Unknown | | + + + + + | Rob Vogt | ECON | Unknown | | + + + + + Care Team Providers + +------+ + | Care Transcription Typist Name | Role | Phone | + +------+ + | Abrahan Samaniego MD | PCP | | + +------+ + Encounter Details +--------+ + + + + | Date | Type | Department | Care Team | Description | +--------+ + + + + | 03/18/ | Hospital | [facility] | Abrahan Samaniego MD | | | 2010 | Encounter | MED CTR LABORATORY | [address] [facility] | | | | | [address] | [place] | | | | | [place] | [address] | | | | | [address] | | | | | | [phone] | | | +--------+ + + + [...] [place] | | | | | | [id number] | | | | | | | | +--------+---------+ + + + | 07/25/ | Office | Cardiology | Renetta, | | | 2020 | Visit | | [facility] [address] | | | | | | [place] | | | | | | [place] [address] | | | | | | [phone] | | | | | | | | +--------+---------+ + + + | 09/03/ | Office | Endocrinology | Cheryl Zee MD | | | 2020 | Visit | | [address] [place] | | | | | | [...] + +--------+ + + + | LIPID PROFILE | Routin | 03/18/2011 | | Results for this | | | e | 3:07 PM | | procedure are in the | | | | PDT | | results section. | + +--------+ + + + | T3, UPTAKE | Routin | 03/18/2011 | | Results for this | | | e | 3:07 PM | | procedure are in the | | | | PDT | | results section. | + +--------+ + + + | TSH | Routin | 03/18/2011 | | Results for this | | | e | 3:07 PM | | procedure are in the | | | | PDT | | results section. | + +--------+ + + + | T4, FREE | Routin | 03/18/2011 | | Results for this | | | e | 3:07 PM | | procedure are in the | | | | PDT | | results section. | + +--------+ + + + | COMPREHENSIVE | Routin | 03/18/2011 | | Results for this | | METABOLIC PANEL | e | 3:07 PM | | procedure are in the | | | | PDT | | results section. | + +--------+ + + + documented in this encounter Results T3, Uptake (03/18/2011 3:07 PM PDT) + + + + + + | Component | Value | Ref Range | Performed | Pathologist | | | | | At | Signature | + + + + + + | T3 UPTAKE | 38.0Comment: Testing | 32.0 - 48.4 % | [facility] | | | | performed on the [email or web address] | | [facility] | | | | [place] [facility] | | MEDICAL | | | [...] + | [facility] | [address] | [place], [place] | [phone] | | [facility] | | [address] | | | - LABORATORY | | | | + + + + + | [facility] | [address] | [place], [place] | | | [facility] | | [address] [place] [address] | | | - LABORATORY | | | | + + + + + TSH (03/18/2011 3:07 PM PDT) + + + + + + | Component | Value | Ref Range | Performed | Pathologist | | | | | At | Signature | + + + + + + | TSH | 0.16 (L)Comment: Testing | 0.34 - 5.60 | [facility] | | | | performed on the | uIU/mL | [facility] | | | | [facility] [place] [facility] | | MEDICAL | | | [...] + | [facility] | [address] | [place], [place] | [phone] | | [facility] | | [address] | | | - LABORATORY | | | | + + + + + | [facility] | [address] | [place], [place] | | | [facility] | | [address], [facility] | | | - LABORATORY | | | | + + + + + T4, Free (03/18/2011 3:07 PM PDT) + + + + + + | Component | Value | Ref Range | Performed | Pathologist | | | | | At | Signature | + + + + + + | FT4 | 0.99Comment: Testing | 0.61 - 1.12 | [facility] | | | | performed on the [facility] | ng/dL | [facility] | | | | [facility] | | MEDICAL | | | [...] [address] | [place] | [phone] | | [facility] | | [address] | | | - LABORATORY | | | | + + + + + | [facility] | [address] | [place] | | | [facility] | | [address], [facility] | | | - LABORATORY | | | | + + + + + Lipid Profile (03/18/2011 3:07 PM PDT) + + + + + + | Component | Value | Ref Range | Performed | Pathologist | | | | | At | Signature | + + + + + + | Triglycerid | 112 | 35 - 160 mg/dL | [facility] | | | es | | | [facility] | | | | | | MEDICAL | | | | | | CENTER - | | | | | | LABORATORY | | + + + + + + | Cholesterol | 252 (H) | 150 - 200 mg/dL | [facility] | | | | | | [facility] | | | | | | MEDICAL | | | | | | CENTER - | | | | | | LABORATORY | | + + + + + + | HDL | 52 | 29 - 89 mg/dL | [facility] | | | | | | [facility] | | | | | | MEDICAL | | | | | | CENTER - | | | | | | LABORATORY | | + + + + + + | LDL, | 178 (H) | <130 mg/dL | [facility] | | | Calculated | | | [facility] | | | | | | MEDICAL | | | | | | CENTER - | | | | | | LABORATORY | | + + + + + + | Chol/HDL | 4.8Comment: | | [facility] | | | Ratio | | | [facility] | | | | | | MEDICAL | | | | ------- RISK CATEGORY: | | CENTER - | | | | CHOL/HDL * T.CHOL * LDL | | LABORATORY | | | | CHOL * HDL CHOL | | | | | | | | | | | | RATIO DESIRABLE: (M) | | | | | | 4.0-6.7 <200 | | | | | | <130 >50 | | | | | | (F) | | | | | | 3.7-4.2 BORDERLINE:(M) | | | | | | 6.7-7.4 200-240 | | | | | | 130-160 <45 | | | | | | (F) | | | | | | 4.2-5.5 HIGH RISK: (M) | | | | | | >7.4 >240 | | | | | | >160 <35 | | | | | | (F) | | | | | | >5.5 | | | | | | | | | | | | | | | | | | --------- | | | | + + + + + + + + | Specimen | + + | | + + + + + + + | Performing | Address | City/State/Zipcode | Phone Number | | Organization | | | | + + + + + | [facility] | [address] | [place], [place] | [phone] | | [facility] | | [address] | | | - LABORATORY | | | | + + + + + | [facility] | [address] | [place], [place] | | | [facility] | | [address], [facility] | | | - LABORATORY | | | | + + + + + Comprehensive Metabolic Panel (03/18/2011 3:07 PM PDT) + + + + + + | Component | Value | Ref Range | Performed | Pathologist | | | | | At | Signature | + + + + + + | Glucose | 92 | 70 - 109 mg/dL | [facility] | | | | | | [facility] | | | | | | MEDICAL | | | | | | CENTER - | | | | | | LABORATORY | | + + + + + + | Calcium | 8.9 | 8.3 - 10.5 | [facility] | | | | | mg/dL | [facility] | | | | | | MEDICAL | | | | | | CENTER - | | | | | | LABORATORY | | + + + + + + | Alkaline | 80 | 40 - 110 IU/L | [facility] [...] + + + + | ALT | 21 | 6 - 45 IU/L | [facility] | | | | | | [facility] | | | | | | MEDICAL | | | | | | CENTER - | | | | | | LABORATORY | | + + + + + + | Bilirubin | 0.8 | 0.2 - 1.0 mg/dL | [facility] | | | Total | | | [facility] | | | | | | MEDICAL | | | | | | CENTER - | | | | | | LABORATORY | | + + + + + + | Total | 6.4 | 6.0 - 7.8 gm/dL | [facility] | | | Protein | | | [facility] | | | | | | MEDICAL | | | | | | CENTER - | | | | | | LABORATORY | | + + + + + + | Albumin | 3.8 | 3.2 - 5.0 gm/dL | [facility] | | | | | | [facility] | | | | | | MEDICAL | | | | | | CENTER - | | | | | | LABORATORY | | + + + + + + | BUN | 18 | 7 - 18 mg/dL | [facility] | | | | | | [facility] | | | | | | MEDICAL | | | | | | CENTER - | | | | | | LABORATORY | | + + + + + + | Creatinine | 0.91 | 0.60 - 1.30 | [facility] | | | | | mg/dL | [facility] | | | | | | MEDICAL | | | | | | CENTER - | | | | | | LABORATORY | | + + + + + + | Estimated | >60Comment: For | >60 mL/min/A | [facility] | | | GFR | -Americans, | [...] + + + + | BUN/Creatin | 19.8 | 12 - 20 | [facility] | | | ine Ratio | | | [facility] | | | | | | MEDICAL | | | | | | CENTER - | | | | | | LABORATORY | | + + + + + + | Na | 137 | 136 - 149 mEq/L | [facility] | | | | | | [facility] | | | | | | MEDICAL | | | | | | CENTER - | | | | | | LABORATORY | | + + + + + + | K | 3.9 | 3.5 - 5.1 mEq/l | [facility] [...] + + | CO2 | 27 | 24 - 31 mEq/L | [facility] | | | | | | [facility] | | | | | | MEDICAL | | | | | | CENTER - | | | | | | LABORATORY | | + + + + + + | Anion Gap | 6.9 | 6.0 - 17.0 | [facility] | [...] + | [facility] | [address] | [place], [place] | [phone] | | [facility] | | [address] | | | - LABORATORY | | | | + + + + + | [facility] | [address] | [place], [place] | | | [facility] | | [address] | | | - LABORATORY | | | | + + + + + documented in this encounter Visit Diagnoses Not on filedocumented in this encounter"
--- OUTSIDE RECORDS SUMMARY | ~2020-01-04 | XMS | Encounter Summary ---
Demographics + + + | Address | [address] | | | [place] [address] | + + + | Home Phone | | + + + | Preferred Language | Unknown | + + + | Marital Status | | + + + | Sikhism Affiliation | 1027 | + + + | Race | Unknown | + + + | Ethnic Group | Unknown | + + + Author + + + | Author | [facility] | | | and [place] | + + + | Organization | [facility] | | | and [place] | + + + | Address | Unknown | + + + | Phone | Unavailable | + + + Support + + + + + | Name | Relationship | Address | Phone | + + + + + | Cristofer Morales | ECON | [address] | | | | | [place], | | | | | [place] [address] | | + + + + + | Ryan Morales | ECON | Unknown | | + + + + + | Rob Morales | ECON | Unknown | | + + + + + Care Team Providers + +------+ + | Care Cinder Dump Crane Operator Name | Role | Phone | + +------+ + | Abrahan Samaniego MD | PCP | | + +------+ + Encounter Details +--------+ + + + + | Date | Type | Department | Care Team | Description | +--------+ + + + + | 06/09/ | Hospital | [facility] | Abrahan Samaniego MD | Bilateral hip pain | | 2013 | Encounter | MED CTR XRAY [address] | [address] [facility] | | | | | [place] | [place] | | | | | [place] [address] | [address] | | | | | [phone] | | | +--------+ + + + [...] + + +---------+ + + | aspirin 81 mg EC | Take 81 mg by mouth | | 0 | | | | tablet | Daily. | | | | 4 | + + + +---------+ + + [...] + + + +---------+ + + | LEVOXYL 100 MCG | take 1 tablet by | 90 | 2 | 08/13/19 | | | tablet | mouth once daily | tablet | | 13 | 4 | + + + +---------+ + + | predniSONE | Take 1 by mouth | | 0 | 02/18/20 | | | (DELTASONE) 1 mg | daily with one 5 mg | | | 12 | 4 | | tablet | tab (total 6mg by | | | | | | | mouth daily ) | | | | | + + + +---------+ + + | predniSONE | Take 1 tablet by | | 0 | 02/18/20 | | | (DELTASONE) 5 mg | mouth daily with one | | | 12 | 4 | | tablet | 1 mg tab [...] | | | | | | [place] [address] | | | | | | [phone] | | | | | | | | +--------+---------+ + + + | 09/03/ | Office | Endocrinology | Cheryl Zee MD | | | 2020 | Visit | | [address] | | | | | | [address] [place], [place] | | | | | | [id number] | | | | | | | | +--------+---------+ + + + documented as of this encounter Procedures + +--------+ + + + | Procedure Name | Priori | Date/Time | Associated Diagnosis | Comments | | | ty | | | | + +--------+ + + + | XR PELVIS 1 OR 2 VW | Routin | 06/09/2013 | Bilateral hip pain | Results for this | | | e | 1:42 PM | | procedure are in the | | | | PST | | results section. | + +--------+ + + + documented in this encounter Results XR Pelvis 1 or 2 Vw (06/09/2013 1:42 PM PST) + + | Specimen | + + | | + + + + + | Narrative | Performed At | + + + | [facility] | [place] | | Department [address] [place] [address] | [facility] | | [ rep [address]] [ rep [facility] | | [facility]] Signed | - IMAGING | | | | | Patient Name: MONA MORALES Physician: | | | EDY : 1950 Age: 63 Sex: F Unit #: [id number] | | | Exam Date: 06/09/13 Location: [facility] | | | Report #: [id number] Page: | | | %(RAD)RES..mtdd.print.filter("pg") of %(RAD) | | | RES..mtdd.print.filter("tpg") | | | | | | Accession Number: [id number] | | | AP VIEW OF THE [...] Transcribed Date/Time: 06/09/2013 13:54 | | | Tack Picker: LEDA <<Signature on File>> | | | | | | Chan Shahid MD06/09/13 1442 <Electronically signed by | | | Chan Shahid MD> Chan Shahid MD 06/09/13 | | | 1342 Tack Picker: [employer] Cieujphzybufz09/03/14 1354 | | | Abrahan Samaniego MD | | + + + + + + + + | Performing | Address | City/State/Zipcode | Phone Number | | Organization | | | | + + + + + | [facility] | [address] | [place] | [phone] | | [facility] | | [address] | | | - IMAGING | | | | + + + + + documented in this encounter Visit Diagnoses + + | Diagnosis | + + | Bilateral hip pain Pain in joint, pelvic region and thigh | + + documented in this encounter
--- OUTSIDE RECORDS SUMMARY | ~2020-01-04 | XMS | Encounter Summary ---
Demographics + + + | Address | [address] | | | [place] [address] | + + + | Home Phone | | + + + | Preferred Language | Unknown | + + + | Marital Status | | + + + | Scientologist Affiliation | 1027 | + + + | Race | Unknown | + + + | Ethnic Group | Unknown | + + + Author + + + | Author | [facility] | | | and [place] | + + + | Organization | [facility] | | [...] [place], | | | | | [place] [address] | | + + + + + | Ryan Vogt | ECON | Unknown | | + + + + + | Rob Vogt | ECON | Unknown | | + + + + + Care Team Providers + +------+ + | Care Administrative Office Specialist Name | Role | Phone | + +------+ + | Abrahan Samaniego MD | PCP | | + +------+ + Encounter Details +--------+ + + + + | Date | Type | Department | Care Team | Description | +--------+ + + + + | 03/15/ | Abstract | [facility] [place] [facility] | Abrahan Samaniego MD | | | 2018 | | MEDICINE [address] | [address] [facility] | | | | | [place], | [place] | | | | | [place] [address] | [id number] | | | | | [phone] | | | +--------+ + + + [...] | | | | | | [place] [address] | | | | | | [phone] | | | | | | | | +--------+---------+ + + + | 09/03/ | Office | Endocrinology | Cheryl Zee MD | | | 2020 | Visit | | [address] [place] | | | | | | [address] [place] | | | | | | [address] | | | | | | | | +--------+---------+ + + + documented as of this encounter Visit Diagnoses Not on filedocumented in this encounter"
--- OUTSIDE RECORDS SUMMARY | ~2020-01-04 | XMS | Encounter Summary ---
Demographics + + + | Address | [address] | | | [place] [address] | + + + | Home Phone | | + + + | Preferred Language | Unknown | + + + | Marital Status | | + + + | Rastafarian Affiliation | 1027 | + + + | Race | Unknown | + + + | Ethnic Group | Unknown | + + + Author + + + | Author | [facility] | | | and [place] | + + + | Organization | [facility] | | [...] [place], | | | | | [place] [address] | | + + + + + | Ryan Vogt | ECON | Unknown | | + + + + + | Rob Vogt | ECON | Unknown | | + + + + + Care Team Providers + +------+ + | Care Technical Report Writer Name | Role | Phone | + [...] Description | +--------+--------+ + + + | 09/12/ | Refill | [facility] | Abrahan Samaniego MD | Medication Refill | | 2019 | | MEDICINE [address] [place] [address] | [address] [facility] | | | | | [place], | [place] | | | | | [place] [address] | [address] | | | | | [phone] | | | +--------+--------+ + + + [...] | | 2019 | Visit | | [address] [place] [address] | | | | | | [place] | | | | | | [address] | | | | | | | | +--------+---------+ + + + | 07/25/ | Office | Cardiology | Renetta, | | | 2020 | Visit | | [facility] [address] | | | | | | [place] | | | | | | [place] [address] | | | | | | [phone] | | | | | | | | +--------+---------+ + + + | 09/03/ | Office | Endocrinology | Cheryl Zee MD | | | 2020 | Visit | | [address] [place] | | | | | | [address] [place] | | | | | | [address] | | | | | | | | +--------+---------+ + + + documented as of this encounter Visit Diagnoses Not on filedocumented in this encounter"
--- OUTSIDE RECORDS SUMMARY | ~2020-01-04 | XMS | Encounter Summary ---
Demographics + + + | Address | [address] | | | [place] [address] | + + + | Home Phone | | + + + | Preferred Language | Unknown | + + + | Marital Status | | + + + | Latter Day Affiliation | 1027 | + + + | Race | Unknown | + + + | Ethnic Group | Unknown | + + + Author + + + | Author | [facility] | | | and [place] | + + + | Organization | [facility] | | | [...] [place], | | | | | [place] [address] | | + + + + + | Ryan Vogt | ECON | Unknown | | + + + + + | Rob Vogt | ECON | Unknown | | + + + + + Care Team Providers + +------+ + | Care Snow Ranger Name | Role | Phone | + [...] | Orthopedic | Diagnoses | [place], | Sunday, | | | Services | Surgery | [facility] | Abrahan Cortez MD | Maxwell Tafoya, | | | Required | | contracture | [address] | [address] | | | | | | [address] | [address] | | | | | | [place], | [place], [place] | | | | | | [place] [address] | [address] Phone: | | | | | | Phone: | [phone] | | | | | | [phone] | Fax: | | | | | | Fax: | [phone] | | | | | | [phone] | | +--------+ + + + + + Reason for Visit + + + | Reason | Comments | + + + | Joint Pain | R wrist pain | + + + Encounter Details +--------+---------+ + + + | Date | Type | Department | Care Team | Description | +--------+---------+ + + + | 02/12/ | Office | [facility] | Abrahan Samaniego MD | MIROSLAVA SYNDROME | | 2016 | Visit | MEDICINE [address] | [address] [place] [address] | (Primary Dx); | | | | [place], | [place] | Adrenal | | | | [place] [address] | [address] | insufficiency ([facility]); | | | | [phone] | | [facility] | | | | | | contracture; Need | | | | | | for influenza | | | | | | vaccination | +--------+---------+ + + + Social History [...] + + + | Blood Pressure | 124/70 | 02/13/2016 10:34 AM | | | | | PDT | | + + + + + | Pulse | 65 | 02/13/2016 10:34 AM | | | | | PDT | | + + + + + | Temperature | 36.3 C (97.4 F) | 02/13/2016 10:34 AM | | | | | PDT | | + + + + + | Respiratory Rate | 16 | 02/13/2016 10:34 AM | | | | | PDT | | + + + + + | Oxygen Saturation | 99% | 02/13/2016 10:34 AM | | | | | PDT | | + + + + + | Inhaled Oxygen | - | - | | | Concentration | | | | + + + + + | Weight | 67 kg (147 lb 11.2 | 02/13/2016 10:34 AM | | | | oz) | PDT | | + + + + + | Height | - | - | | + + + + + | Body Mass Index | 25.75 | 12/03/2015 8:50 AM | | | | | PDT | | + + + + + documented in this encounter Patient Instructions Patient Instructions Abrahan Samaniego MD - 02/13/2016 10:53 AM PDTYou are currently getting about 900 mg of Calcium per day in your diet. Add a supplement to increase your daily intake to 1500 mg daily. documented in this encounter Progress Notes Abrahan Samaniego MD - 02/13/2016 10:47 AM PDT 02/13/2016 Oliva Vogt 1950 History: Oliva Vogt is a 65 y.o. 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 She has heard about radiaiton for it, enzymatic injection or surgery. She wonders wh at to do about it. She doesn't want to do anything that will impact her organ playing long t erm. She says that when she was seeing Axel Hernandez PT that he did massage on it which ma y have been helpful. CALCIUM SUPPLEMENTATION: She is drinking 16 ounces of milk, 6 ounces yogurt. She also is ta leroy 1000 Int Units of Vit D. She will eat small amounts of cheese. She used to eat cottage cheese and her can't. He won't stay out of it if she keeps it in the house. No fish . Also no juices in the house. She worries about Vit B12 and Folate because a friend told her about them. She eats a lot of vegetables, eggs and she also eats meat. ADRENAL CRISIS: She says that she is confused about what will bring this on. She was under the impression that it is only the flu. She says that someone told her that they read on [employer] internet several things that can bring it on. One thing she read about was dehydration so she is working on taking in plenty of fluid. She also says that there has been a time or tw o that she was so wrapped up in her 's health that she has missed it. She knows that she should absolutely not miss it. Patient Active Problem List Diagnosis HIP PAIN Hypothyroidism Hyperlipidemia MIROSLAVA SYNDROME Chronic kidney disease (CKD) OTHER AND UNSPECIFIED HYPERLIPIDEMIA OTHER DISEASES OF NASAL CAVITY AND SINUSES DUPUYTREN'S CONTRACTURE OSTEOARTHRITIS, KNEE Preventative health care Adrenal insufficiency Skull lesion Cervicalgia Other congenital anomaly of spine Impaired mobility Gastroenteritis Hypokalemia due to loss of potassium Current Outpatient Rx Name Route Sig Dispense Refill atorvaSTATin (LIPITOR) 10 mg tablet take 1 tablet by mouth NIGHTLY 90 tablet 2 cholecalciferol (VITAMIN D-3) 1,000 units tablet Oral Take 1,000 Units by mouth Daily. levothyroxine (SYNTHROID, LEVOTHROID) 100 mcg tablet Oral Take 1 tablet by mouth every morning (before breakfast). 90 tablet 3 predniSONE (DELTASONE) 5 mg tablet Oral Take 1 tablet by mouth Daily. 90 tablet 3 Allergies Allergen Reactions Succinylcholine Chloride Other (See Comments) Hard to wake up Review of Systems: Over 1 month ago she hit the backside of her LEFT hand on the counter at home. She says sandra t it broke the Skin and that it bruised. She says that it has been painful since though it is 80% better at this point. Physical Exam: BP 124/70 mmHg | Pulse 65 | Temp(Src) 36.3 C (97.4 F) (Oral) | Resp 16 | Wt 66.996 kg ( 147 lb 11.2 oz) | SpO2 99% GEN: No acute distress. Cushingoid. HEENT:EOMI, OP normal CHEST: Clear to auscultation. No wheezes, rales, rhonchi. Normal effort and movement CAR: Rhythm:regular Murmur:no Cameron:no JVP:no Pulses:normal radial and carotid ABD: non-distended, non-tender. No hepatosplenomegaly EXT: No clubbing, cyanosis, or edema Musculoskeletal: She has a Dupuytren's contracture of the fourth and fifth fingers on the r ight hand. No deformity or abnormality is seen on the dorsum of the left hand Assessment: Plan 1. MIROSLAVA SYNDROME 2. Adrenal insufficiency (HCC) : We went over her adrenal insufficiency which is secondary to her Miroslava syndrome. We talked about signs and symptoms and triggers for adrenal insuff iciency and how important it is to A. Always take her prednisone B. Seek urgent/emergent medical attention for any signs or symptoms of adrenal insufficien cy or for even moderate illnesses which can trigger adrenal insufficiency 3. Dupuytren's contracture : She would very much like to get this addressed. 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 She is asked for referral to a hand specialist. Referral put in. 4. Need for influenza vaccination 5. We went over calcium and vitamin D supplementation. She needs to be getting 1500 mg of calcium per day. We talked about ways to do this through foods that she typically eats (th ough right now it appears that she is getting about 900 mg routinely through her diet) as we ll as supplements. All questions were addressed and answered documented in this enc ounter Plan of Treatment +--------+---------+ + + + | Date | Type | Specialty | Care Team | Description | +--------+---------+ + + + | 04/29/ | Office | Internal Medicine | Abrahan Samaniego MD | | | 2019 | Visit | | [address] [place] [address] | | | | | | [place] | | | | | | [address] | | | | | | | | +--------+---------+ + + + | 07/25/ | Office | Cardiology | Renetta, | | | 2020 | Visit | | [facility] [address] | | | | | | [place], | | | | | | [place] [address] | | | | | | [phone] | | | | | | | | +--------+---------+ + + + | 09/03/ | Office | Endocrinology | Cheryl Zee MD | | | 2020 | Visit | | [address] | | | | | | [address] [place] | | | | | | [id number] | | | | | | | | +--------+---------+ + + + + + +--------+ + + | Name | Type | Priori | Associated Diagnoses | Order Schedule | | | | ty | | | + + +--------+ + + | Orthopedic Surgery, | Outpatient | Routin | [facility] | Ordered: 02/13/2016 | | External - AMB | Referral | e | contracture | | | Referral | | | | | + + +--------+ + + documented as of this encounter Procedures + +--------+ + + + | Procedure Name | Priori | Date/Time | Associated Diagnosis | Comments | | | ty | | | | + +--------+ + + + | LUIZ EXTERNAL IMAGE | Routin | 10/28/2015 | | Results for this | | | e | | | procedure are in the | | | | | | results section. | + +--------+ + + + documented in this encounter Results Vitamin D, 25-Hydroxy (02/13/2016 11:29 AM PDT) + +-------+ + + + | Component | Value | Ref Range | Performed | Pathologist | | | | | At | Signature | + +-------+ + + + | Vitamin D, | 37 | 30 - 80 ng/mL | [facility] [...] + | [facility] | [address] | [place] | [phone] | | [facility] | | [address] | | | - LABORATORY | | | | + + + + + Folate (02/13/2016 11:29 AM PDT) + +-------+ + + + | Component | Value | Ref Range | Performed | Pathologist | | | | | At | Signature | + +-------+ + + + | FOLATE | 18.8 | >5.8 ng/mL | [facility] | | | | | [...] [address] | [place] | [phone] | | [facility] | | [address] | | | - LABORATORY | | | | + + + + + Vitamin B-12 (02/13/2016 11:29 AM PDT) + + + + + + | Component | Value | Ref Range | Performed | Pathologist | | | | | At | Signature | + + + + + + | VITAMIN | 461Comment: DEFICIENT: | 180 - 914 pg/mL | [facility] | | | B-12 | <145 | | [facility] | | | | pg/mLINDETERMINATE: | | MEDICAL | | | | 145-180 pg/mL | | CENTER - | | | | | | LABORATORY | | + + + + + + + + | Specimen | + + | Blood | + + + + + + + | Performing | Address | City/State/Zipcode | Phone Number | | Organization | | | | + + + + + | [facility] | [address] | [place] | [phone] | | [facility] | | [address] | | | - LABORATORY | | | | + + + + + Comprehensive Metabolic Panel (02/13/2016 11:29 AM PDT) + + + + + + | Component | Value | Ref Range | Performed | Pathologist | | | | | At | Signature | + + + + + + | Na | 139 | 136 - 149 | [facility] | | | | | mmol/L | [facility] | | | | | | MEDICAL | | | | | | CENTER - | | | | | | LABORATORY | | + + + + + + | K | 4.0 | 3.5 - 5.1 | [facility] | | | | | mmol/L | [facility] | | | | | | MEDICAL | | | | | | CENTER - | | | | | | LABORATORY | | + + + + + + | Cl | 105 | 98 - 109 mmol/L | [facility] | | | | | | [facility] | | | | | | MEDICAL | | | | | | CENTER - | | | | | | LABORATORY | | + + + + + + | CO2 | 27 | 24 - 31 mmol/L | [facility] | | | | | | [facility] | | | | | | MEDICAL | | | | | | CENTER - | | | | | | LABORATORY | | + + + + + + | Anion Gap | 7 | 3 - 16 mmol/L | [facility] | | | | | | [facility] | | | | | | MEDICAL | | | | | | CENTER - | | | | | | LABORATORY | | + + + + + + | Glucose | 108 | 70 - 109 mg/dL | [facility] [...] + + + + | Creatinine | 1.01 | 0.60 - 1.30 | [facility] | | | | | mg/dL | [facility] | | | | | | MEDICAL | | | | | | CENTER - | | | | | | LABORATORY | | + + + + + + | eGFR, | 55 (L)Comment: | >=60 | [facility] | | | non- | GLOMERULAR FILTRATION | mL/min/1.73m2 | [facility] | | | [place] | RATE,ESTIMATED | | MEDICAL | | | | mL/min/1.58v2Grvg than | | CENTER - | | | | 60 Chronic kidney | | LABORATORY | | | | disease,if found over a | | | | | | 3-month period.Less than | | | | | | 15 Kidney failureFor | | | | | | | | | | | | Americans,multiply the | | | | | | calculated GFR by 1.21. | | | | | | | | | | + + + + + + | Calcium | 9.5 | 8.3 - 10.5 | [facility] | | | | | mg/dL | [facility] | | | | | | MEDICAL | | | | | | CENTER - | | | | | | LABORATORY | | + + + + + + | Albumin | 4.1 | 3.2 - 5.0 g/dL | [facility] | | | | | | [facility] | | | | | | MEDICAL | | | | | | CENTER - | | | | | | LABORATORY | | + + + + + + | Bilirubin | 0.7 | 0.1 - 1.5 mg/dL | [facility] | | | Total | | | [facility] | | | | | | MEDICAL | | | | | | CENTER - | | | | | | LABORATORY | | + + + + + + | Total | 6.6 | 6.0 - 7.8 g/dL | [facility] | | | Protein | | | [facility] | | | | | | MEDICAL | | | | | | CENTER - | | | | | | LABORATORY | | + + + + + + | AST | 21 | 10 - 42 U/L | [facility] | | | | | | [facility] | | | | | | MEDICAL | | | | | | CENTER - | | | | | | LABORATORY | | + + + + + + | ALT | 25 | 6 - 45 U/L | [facility] | | | | | | [facility] | | | | | | MEDICAL | | | | | | CENTER - | | | | | | LABORATORY | | + + + + + + | Alkaline | 72 | 40 - 110 U/L | [facility] | | | Phosphatase | | | [facility] | | | | | | MEDICAL | | | | | | CENTER - | | | | | | LABORATORY | | + + + + + + | Globulin | 2.5 | 2.1 - 3.8 g/dL | [facility] | | | | | | [facility] | | | | | | MEDICAL | | | | | | CENTER - | | | | | | LABORATORY | | + + + + + + | Albumin/Rachel | 1.6 | 0.8 - 2.0 | [facility] | | | bulin Ratio | | | [facility] | | | | | | MEDICAL | | | | | | CENTER - | | | | | | LABORATORY | | + + + + + + | BUN/Creatin | 17.8 | | [facility] | | | ine [...] [address] | [place] | [phone] | | [facility] | | [address] | | | - LABORATORY | | | | + + + + + LUIZ External Image (10/28/2015) + + + + + + | Component | Value | Ref Range | Performed | Pathologist | | | | | At | Signature | + + + + + + | EXT | 1-NegativeComment: | | EXTERNAL | | | [facility]AMMOGRAPHY | [facility] | | LAB | | + + + + + + + +---------+ + + | Performing | Address | City/State/Zipcode | Phone Number | | Organization | | | | + +---------+ + + | EXTERNAL LAB | | | | + +---------+ + + documented in this encounter Visit Diagnoses + + | Diagnosis | + + | MIROSLAVA SYNDROME - Primary Panhypopituitarism | + + | Adrenal insufficiency (HCC) Glucocorticoid deficiency | + + | Dupuytren's contracture Contracture of palmar fascia | + + | Need for influenza vaccination Need for prophylactic vaccination and inoculation | | against influenza | + + documented in this encounter"
--- OUTSIDE RECORDS SUMMARY | ~2020-01-04 | XMS | Clinical Summary ---
Demographics + + + | Address | [address] | | | [place] [address] | + + + | Home Phone | | + + + | Preferred Language | Unknown | + + + | Marital Status | | + + + | Anabaptism Affiliation | [id number] | + + + | Race | Unknown | + + + | Ethnic Group | Unknown | + + + Author + + + | Author | [facility] | | | and [place] | + + + | Organization | [facility] | | | and [...] [place], | | | | | [place] [address] | | + + + + + | Ryan Vogt | ECON | Unknown | | + + + + + | Rob Vogt | ECON | Unknown | | + + + + + Care Team Providers + +------+ + | Care Catch Basin Cleaner Name | Role | Phone | + +------+ + | Julisa Samaniego MD | PCP | | + +------+ + Allergies + + + +--------+ + | Active Allergy | Reactions | Severity | Noted | Comments | | | | | Date | | + + + +--------+ + | Succinylcholine | Other (See Comments) | Medium | | Was told by | | Chloride | | | | previous | | | | | | anesthesiologist | | | | | | that 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 | | | | | | Does not recall | | | | | | having a dibucaine | | | | | | test. Does not think | | | | | | she was | | | | | | intubated/sedated | | | | | | for a prolonged | | | | | | period after her | | | | | | procedure. | + + + +--------+ + Medications + + + +---------+------+------+-------+ | Medication | Sig | Dispensed | Refills | Star | End | Statu | | | | | | t | Date | s | | | | | | Date | | | + + + +---------+------+------+-------+ | cholecalciferol | Take 1 tablet by | | 0 | 12/2 | | Activ | | (CHOLECALCIFEROL) | mouth Daily. | | | 420 | | e | | 1000 units TABS | | | | 18 | | | + + + +---------+------+------+-------+ | amLODIPine | Take 1 tablet by | 90 | 3 | 02/1 | | Activ | | (NORVASC) 2.5 mg | mouth Daily. | tablet | | 8/20 | | e | | tablet | | | | 20 | | | + + + +---------+------+------+-------+ | atorvaSTATin | Take 1 tablet by | 90 | 3 | 02/1 | | Activ | | (LIPITOR) 20 mg | mouth nightly. | tablet | | 8/20 | | e | | tablet | | | | 20 | | | + + + +---------+------+------+-------+ | potassium chloride | take 1 tablet by | 90 | 3 | 04/0 | | Activ | | (LOWELL-CON) 10 mEq | mouth once daily | tablet | | 9/20 | | e | | CR tablet | | | | 20 | | | + + + +---------+------+------+-------+ | aspirin (ASPIRIN) | Take 81 mg by mouth | | 0 | | | Activ | | 81 MG EC tablet | Daily. | | | | | e | + + + +---------+------+------+-------+ | Multiple | Take 1 tablet by | | 0 | | | Activ | | Vitamins-Minerals | mouth Daily. | | | | | e | | (ONE DAILY | | | | | | | | MULTIVITAMIN WOMEN) | | | | | | | | TABS | | | | | | | + + + +---------+------+------+-------+ | predniSONE | take 1 tablet by | 120 | 4 | 06/3 | | Activ | | (DELTASONE) 5 mg | mouth daily MOST | tablet | | 0/20 | | e | | tabletIndications: | DAYS INCREASE TO 3 | | | 20 | | | | Secondary adrenal | tablets daily for 3 | | | | | | | insufficiency (HCC) | days WHEN SICK. | | | | | | + + + +---------+------+------+-------+ | predniSONE | One daily for total | 90 | 4 | 06/3 | | Activ | | (DELTASONE) 1 mg | 6 mg daily. | tablet | | 0/20 | | e | | tabletIndications: | | | | 20 | | | | Secondary adrenal | | | | | | | | insufficiency (HCC) | | | | | | | + + + +---------+------+------+-------+ | levothyroxine | Take 1 tablet by | 90 | 4 | /3 | | Activ | | (SYNTHROID) 100 mcg | mouth every morning | tablet | | 0/20 | | e | | tabletIndications: | (before breakfast). | | | 20 | | | | Secondary | | | | | | | | hypothyroidism | | | | | | | + + + +---------+------+------+-------+ | Somatropin | Inject 0.3 mg under | 5 each | 2 | 07/0 | | Activ | | (OMNITROPE) 5.8 MG | the skin Daily. | | | 6/20 | | e | | SOLRIndications: | | | | 20 | | | | Panhypopituitarism | | | | | | | | (HCC) | | | | | | | + + + +---------+------+------+-------+ | Somatropin | Inject 0.3 mg under | 5 each | 2 | 06/3 | 07/0 | Disco | | (OMNITROPE) 5.8 MG | the skin Daily. | | | 0/20 | 3/20 | ntinu | | SOLRIndications: | | | | 20 | 20 | ed | | Panhypopituitarism | | | | | | (Reor | | ([facility]) | | | | | | tommie | | | | | | | | (no | | | | | | | | Cance | | | | | | | | l Rx | | | | | | | | msg)) | + + + +---------+------+------+-------+ Active Problems + + + | Problem | Noted Date | + + + | High alkaline phosphatase level | 07/28/2019 | + + + | Essential hypertension | 07/24/2019 | + + + | Adverse effect of anesthesia | 06/02/2019 | + + + + + | Overview: Very slow to wake up - "Succinylcholine Allergy" | | (this may represent Pseudocholinesterase deficiency is an | | inherited enzyme abnormality that results in abnormally slow | | metabolic degradation of exogenous choline nellie drugs such as | | succinylcholine and mivacurium and some rapidly metabolized | | narcotics). 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 | + + + | Localized edema | 11/29/2017 | + + + | Secondary hyperparathyroidism | 09/07/2017 | + + + | Osteoporosis | 08/26/2017 | + + + + + | Overview: DEXA 12/2018: Left femoral neck T score of -2.7; | | Lumbar spine T score of -2.1 | + + + + + | Hypokalemia due to loss of potassium | 12/02/2015 | + + + | Cervicalgia | 07/16/2014 | + + + | 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 ([facility]) | | | |Mammo:02/21/14,10/28/15, 01/22 | | | |Pap: 02/[address] Pritchard | | | |DEXA:09/24/14 | | Results- Spine -2.5, Femur -2.5. 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 | + + + + + | Frontal skull lesion | 08/14/2011 | + + + | OTHER AND UNSPECIFIED HYPERLIPIDEMIA | 11/24/2010 | + + + | HIP PAIN | | + + + | Secondary hypothyroidism | | + + + | Hyperlipidemia | | + + + + + | Overview: Echocardiogram on 12/20/18 shows left ventricle is | | normal in size and function, ejection fraction is estimated at | | 62%, there is grade 1 LV diastolic dysfunction, mildly thickened | | mitral valve with trace insufficiency, structurally normal | | tricuspid valve with mild insufficiency and peak velocity | | consistent with normal pulmonary pressures, by Alex Villaseñor, | | .[facility] on 12/26/18 shows mild coronary artery disease as detailed | | above, there is a left dominate circulation, normal LV systolic | | function with an EF of 65%, systemic blood pressure is normal, | | there was successful hemostasis with a TR hemostatic band, by | | Benigno Deras MD. 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 This lack of oxygen that causes damage to | | the pituitary gland is known as Guero's syndrome.Guero's | | syndrome causes the pituitary gland to not produce enough | | pituitary hormones (hypopituitarism). 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 | | + +---+ | Vitamin D deficiency | | + +---+ Resolved Problems + + + + | Problem | Noted | Resolved | | | Date | Date | + + + + | Atypical chest pain | 01/27/20 | | | | 19 | 9 | + + + + | Caregiver stress | 05/30/20 | | | | 18 | 9 | + + + + | Bacterial UTI | 12/01/19 | | | | 16 | 6 | + + + + | Gastroenteritis | 11/30/19 | | | | 16 | 8 | + + + + | Sprain of left shoulder | 10/01/19 | | | | 13 | 5 | + + + + | Sore throat | 09/23/19 | | | | 12 | 5 | + + + + Encounters +--------+ + + + + | Date | Type | Specialty | Care Team | Description | +--------+ + + + + | 01/03/ | Emergency | Emergency Medicine | Farhat Tripp MD | Adrenal | | 2020 | | | | insufficiency (HCC) | | | | | | (Primary Dx); Fever, | | | | | | unspecified fever | | | | | | cause | +--------+ + + + + | 01/03/ | Telephone | Endocrinology | Cheryl Zee MD | Other (Omnitrop to | | 2019 | | | | specialty pharmacy) | +--------+ + + + + | 12/28/ | Imaging | Radiology | Cheryl Zee MD | | | 2020 | Exam | | | | +--------+ + + + + | 12/11/ | Telephone | Endocrinology | Cheryl Zee MD | Other | | 2020 | | | | | +--------+ + + + + | 12/07/ | Refill | Endocrinology | Cheryl Zee MD | Medication Refill | | 2020 | | | | | +--------+ + + + + | 12/04/ | Office | Endocrinology | Cheryl Zee MD | Panhypopituitarism | | 2020 | Visit | | | ([facility]) (Primary Dx); | | | | | | Secondary adrenal | | | | | | insufficiency ([facility]); | | | | | | Secondary | | | | | | hyperparathyroidism | | | | | | ([facility]); Secondary | | | | | | hypothyroidism; High | | | | | | alkaline | | | | | | phosphatase level; | | | | | | Osteoporosis, | | | | | | unspecified | | | | | | osteoporosis type, | | | | | | unspecified | | | | | | pathological | | | | | | fracture presence | +--------+ + + + + | 11/12/ | Office | Internal Medicine | Julisa Samaniego MD | Adrenal | | 2019 | Visit | | | insufficiency (HCC) | | | | | | (Primary Dx) | +--------+ + + + + | 11/11/ | Telephone | Internal Medicine | Yung Song MD | Malaise | | 2019 | | | | | +--------+ + + + + from Last 3 Months Immunizations + + + + | Name | Administration Dates | Next Due | + + + + | INFLUENZA 65 Y OR >, | 02/21/2018 | | | TRIVALENT HIGH-DOSE | | | + + + + | INFLUENZA PF 18 Y OR | 02/29/2012 | | | >,TRIVALENT | | | | RECOMBINANT | | | + + + + | INFLUENZA PF | 04/02/2019, 02/13/2016, 02/14/2015 | | | QUAD(PED/ADOL/ADULT) | | | | ,PSKT or VIAL | | | + + + + | INFLUENZA PF | 02/22/2017, 03/28/2014 | | | TRIVALENT(PED/ADOL/A | | | | DULJose), PSKT | | | + + + + | PNEUMOCOCCAL | 02/14/2015 | | | CONJUGATE 13-VALENT | | | | (PCV13) | | | + + + + | PNEUMOCOCCAL | 05/30/2018, 07/26/2007 | | | POLYSACCHARIDE | | | | 23-VALENT (PPSV23) | | | + + + + | TD PF (2 LF TETANUS) | 06/07/2001 | | | (ADOL/ADULT) | | | + + + + | TD PF (5 LF TETANUS) | 02/10/2017 | | | (ADOL/ADULT) | | | + + + + | TDAP, (ADOL/ADULT) | 02/29/2012 | | + + + + Family History + + +------+ + | Medical History | Relation | Name | Comments | + + +------+ + | Abdominal aortic | Brother | | | | aneurysm | | | | + + +------+ + | Arthritis | Father | | | + + +------+ + | Other (see comment) | Father | | of hemorrgagic CVA | + + +------+ + | Stroke | Father | | | + + +------+ + | Lung cancer | Maternal | | | | | Grandfath | | | | | er | | | + + +------+ + | High blood pressure | Mother | | of Aortic dissection | + + +------+ + | Breast cancer | Sister | | | + + +------+ + | Lung cancer | Sister | | | + + +------+ + + +------+ + + | Relation | Name | Status | Comments | + +------+ + + | Brother | | Alive | | + +------+ + + | Father | | | | + +------+ + + | Maternal Grandfather | | | | + +------+ + + | Mother | | | | + +------+ + + | Sister | | Alive | | + +------+ + + Social History + +-------+ +--------+------+ [...] on file | | + + + Last Filed Vital Signs + + + [...] | | + + + + + Plan of Treatment +--------+---------+ + + + | Date | Type | Specialty | Care Team | Description | +--------+---------+ + + + | 04/29/ | Office | Internal Medicine | Julisa Samaniego MD | | | 2019 | Visit | | [address] | | | | | | [place] | | | | | | [address] | | | | | | | | +--------+---------+ + + + | 07/25/ | Office | Cardiology | Renetta, | | | 2020 | Visit | | P[facility]ER [address] | | | | | | [place], | | | | | | [place] [address] | | | | | | [phone] | | | | | | | | +--------+---------+ + + + | 09/03/ | Office | Endocrinology | Cheryl Zee MD | | | 2020 | Visit | | [address] [place] | | | | | | [address] [place] | | | | | | [phone] | | | | | | | | +--------+---------+ + + + + + + + + | Health Maintenance | Due Date | Last | Comments | | | | Done | | + + + + + | Vaccine: Zoster (1 | | | | | of 2) | 0 | | | + + + + + | Med Mgmt: TSH | | 01/11/20 | | | | 0 | 19, | | | | | 08/17/19 | | | | | 19, | | | | | 08/19/19 | | | | | 15, | | | | | Addition | | | | | al | | | | | history | | | | | exists | | + + + + + | Vaccine: Influenza | | 04/02/20 | | | (#1) | 0 | 19, | | | | | 02/22/20 | | | | | 18, | | | | | 02/23/20 | | | | | 17, | | | | | Addition | | | | | al | | | | | history | | | | | exists | | + + + + + | Colorectal Cancer | | 11/30/19 | Postponed from 11/29/[address] ([address]) | | Screening (FIT) | 0 | 16 | | + + + + + | Adult Annual | | 04/24/20 | | | Wellness Visit | 0 | 19, | | | | | 04/24/20 | | | | | 19, | | | | | 03/07/20 | | | | | 18 | | + + + + + | Med Mgmt: Cr | | 11/20/19 | | | | 1 | 20, | | | | | 08/07/19 | | | | | 20, | | | | | 05/23/20 | | | | | 19, | | | | | Addition | | | | | al | | | | | history | | | | | exists | | + + + + + | Med Mgmt: K | | 11/20/19 | | | | 1 | 20, | | | | | 08/07/19 | | | | | 20, | | | | | 05/23/20 | | | | | 19, | | | | | Addition | | | | | al | | | | | history | | | | | exists | | + + + + + | Med Mgmt: Vit D | | 11/20/19 | | | | 1 | 20, | | | | | 08/07/19 | | | | | 20, | | | | | 05/10/20 | | | | | 19, | | | | | Addition | | | | | al | | | | | history | | | | | exists | | + + + + + | Medication | | 11/20/19 | | | Management | 1 | 20 | | + + + + + | Breast Cancer | | 05/22/20 | | | Screening | 1 | 19, | | | | | 01/21/20 | | | | | 18, | | | | | 01/21/20 | | | | | 18, | | | | | Addition | | | | | al | | | | | history | | | | | exists | | + + + + + | Vaccine: | | 02/11/20 | | | Dtap/Tdap/Td (3 - | 7 | 17, | | | Td) | | 02/29/20 | | | | | 12, | | | | | 06/07/19 | | | | | 02 | | + + + + + | Hepatitis C | Completed | 07/14/19 | | | Screening | | 17, | | | | | 07/11/19 | | | | | 17 | | + + + + + Implants + +--------+------+ +--------+--------+--------+ | Implanted | Type | Area | Manufacture | Device | Shelf | Model | | | | | r | | Expira | / | | | | | | Identi | tion | Serial | | | | | | fier | Date | / Lot | + +--------+------+ +--------+--------+--------+ | Cement Cranioplast - | Implan | | [employer] AND | | 09/04/ | [id number] | | [id number]: Qty: 1 on | t | | [employer]URTLEFF | | 2012 | 0 / | | 09/28/2011 | [employer]/ | | INC - C[employer]R | | | /[id number] | | | Spin | | | | | 79 | + +--------+------+ +--------+--------+--------+ Procedures + +--------+ + + + | [...] L?MRN: | | | | | | [id number] | | | [id number] | | | riteri | | | [...] | | , MD | | | Factory Worker | | | al | | | [...] | | | otify/ | | | [id number] | | | [id number] | | | [...] [email or web address] | | | m | +---+--------+ + +--------+ + + + | DEXA BONE DENSITY | Routin | 12/29/2019 | Osteoporosis, | Results for this | | STUDY WO VERT FX | e | 11:29 AM | unspecified | procedure are in the | | ASSESSMENT | | PDT | osteoporosis type, | results section. | | | | | unspecified | | | | | | pathological | | | | | | fracture presence | | + +--------+ + + + | INSULIN-LIKE GROWTH | Routin | 11/20/2019 | Hypopituitarism | Results for this | | FACTOR 1 | e | 3:31 PM | (HCC) | procedure are in the | | | | PDT | | results section. | + +--------+ + + + | VITAMIN D, | Routin | 11/20/2019 | Hypopituitarism | Results for this | | DEFICIENCY SCREEN | e | 3:31 PM | (HCC) Stage 3 | procedure are in the | | (25-HYDROXY) | | PDT | chronic kidney | results section. | | | | | disease (HCC) High | | | | | | alkaline phosphatase | | | | | | level | | + +--------+ + + + | PHOSPHORUS | Routin | 11/20/2019 | Hypopituitarism | Results for this | | | e | 3:31 PM | (HCC) Stage 3 | procedure are in the | | | | PDT | chronic kidney | results section. | | | | | disease (HCC) High | | | | | | alkaline phosphatase | | | | | | level | | + +--------+ + + + | PARATHYROID HORMONE, | Routin | 11/20/2019 | Hypopituitarism | Results for this | | INTACT | e | 3:31 PM | (HCC) Stage 3 | procedure are in the | | | | PDT | chronic kidney | results section. | | | | | disease (HCC) High | | | | | | alkaline phosphatase | | | | | | level | | + +--------+ + + + | COMPREHENSIVE | Routin | 11/20/2019 | Hypopituitarism | Results for this | | METABOLIC PANEL | e | 3:31 PM | (HCC) Stage 3 | procedure are in the | | | | PDT | chronic kidney | results section. | | | | | disease (HCC) High | | | | | | alkaline phosphatase | | | | | | level | | + +--------+ + + + | T4, FREE | Routin | 11/20/2019 | Hypopituitarism | Results for this | | | e | 3:31 PM | (HCC) | procedure are in the | | | | PDT | | results section. | + +--------+ + + + from Last 3 Months Results Urinalysis with Microscopic with Culture if [...] - 1.030 | [facility] | | | [place], | | | [facility] | | [...] | [address] | [place] | [phone] | | [facility] | | [address] | | | - LABORATORY | | [...] Procedure Note | + + | Vishnu, [id number] - 01/04/2020 10:50 PM PDT SINGLE AP [...] | | + +---------+ + + Extra Lavender Top Tube (01/04/2020 5:57 PM PDT) + +-------+ + + + | Component | Value | Ref Range | Performed | Pathologist | | | | | At | Signature | + +-------+ + + + | Extra | Done | | [facility] | | | Lavender | | | [facility] | | | Top Tube | [...] [address] | [place] | [phone] | | [facility] | | [address] | | | - LABORATORY | | | | + + + + + Extra Blue Top Tube (01/04/2020 5:57 PM PDT) + +-------+ + + + | Component | Value | Ref Range | Performed | Pathologist | | | | | At | Signature | + +-------+ + + + | Extra Blue | Done | | [facility] | | | Top Tube | | | [facility] | | [...] + | [facility] | [address] | [place] | [phone] | | [facility] | | [address] | | | - LABORATORY | | [...] | | | in | | | [facility] | | | | | | MEDICAL | | | | | | CENTER - | | | | | | LABORATORY | | + + + + + + | Comment | Comment: < 0.50 | | [facility] | | | | ng/mL:Procalcitonin | | [...] [address] | [place] | [phone] | | [facility] | | [address] | | | - LABORATORY | | [...] | | | Comment:Reference | | [facility] | | | | Ranges: 0.00-0.06 = [...] | | | | | | [employer] | | | | | [...] [address] | [place] | [phone] | | [facility] | | [address] | | | - LABORATORY | | [...] | | | Cells | | | [facility] | | | | | | MEDICAL | | | | | | CENTER - | | | | | | LABORATORY | | + + + + + + | Red Blood | 4.66 | 3.70 - 5.20 | [facility] | | | Cells | | M/uL | [facility] | | | | | | MEDICAL | | | | | | CENTER - | | | | | | LABORATORY | | + + + + + + | Hemoglobin | 14.0 | 11.5 - 16.0 | [facility] | | | | | g/dL | . [facility] | | | | | | [...] | | Monocytes | | K/uL | [facility] | | | | | | MEDICAL | | | | | | CENTER - | | | | | | LABORATORY | | + + + + + + | Absolute | 0.09 | 0.00 - 0.40 | [facility] | | | Eosinophils | | K/uL | [facility] | | | | | | MEDICAL | | | | | | CENTER - | | | | | | LABORATORY | | + + + + + + | Absolute | 0.04 | 0.00 - 0.10 | [facility] | | | Basophils | | K/uL | [facility] | | | | | | MEDICAL | | | | | | CENTER - | | | | | | LABORATORY | | + + + + + + | Absolute | 0.01 | 0.00 - 0.03 | [facility] | | | Immature | | K/uL | [facility] | | | Granulocyte | | | [...] | | nRBC | | K/uL | [facility] | [...] + | [facility] | [address] | [place] | [phone] | | [facility] | | [address] | | | - LABORATORY | | | | + + + + + Comprehensive Metabolic Panel (01/04/2020 5:56 PM PDT)Only the most recent of 2 results wi thin the time period is included. + + + + + + | [...] non- | GLOMERULAR FILTRATION | mL/min/1.73m2 | . [facility] | | | [place] | RATE,ESTIMATED | | MEDICAL | | | | mL/min/1.14u7Gecw than | | CENTER - | | | | 60 Chronic kidney | | LABORATORY | | | | disease,if found over a | | | | | | 3-month period.Less than | | | | | | 15 Kidney failure | | | | + + + + + + | eGFR, | >60Comment: GLOMERULAR | >=60 | [facility] | | | | FILTRATION | mL/min/1.73m2 | [facility] | | | [place] | RATE,ESTIMATED | | MEDICAL | | | | mL/min/1.17a9Eems than | | CENTER - | | [...] | | | | | mg/dL | [facility] | | | | | | MEDICAL [...] + | [facility] | [address] | [place] | [phone] | | [facility] | | [address] | | | - LABORATORY | | [...] | | | | mmol/L | [facility] | | | | | | MEDICAL [...] | + + + + + | [facility] | [address] | [place] | [phone] | | [facility] | | [address] | | | - LABORATORY | | | | + + + + + Coronavirus (COVID-19) NAAJose (01/04/2020 5:51 PM PDT) + + + + + + | Component | Value | Ref Range | Performed | Pathologist | | | | | At | Signature | + + + + + + | SARS-CoV-2, | Not DetectedComment: | Not Detected | [facility] | | | NAAT | SARS-CoV-2, [facility] | | [facility] | | | (COVID-19) | (COVID-19) [...] ST[facility] | [address] | [place] | [phone] | | [facility] | | [address] | | | - LABORATORY | | | | + + + + + DEXA Bone Density wo Roque Fx Assmt (12/29/2019 11:29 AM PDT) + + | Specimen | + + | | + + + + + | Impressions | Performed At | + + + | LEFT FEMORAL NECK: Fracture risk: Increased; WHO classification: | [facility] | | Osteopenia, borderline osteoporosis and slightly improved. L1-L4 | | | REGION OF THE LUMBAR SPINE: Fracture risk: Increased; WHO | | | classification: Osteopenia, slightly improved. LEFT FOREARM: | | | RADIUS: Fracture risk: High; WHO classification: Osteoporosis. | | | World Health Organization Classification Normal: | | | T score at or above -1 SD Osteopenia: T score | | | between -1 and -2.5 SD Osteoporosis: T score at or below | | | -2.5 SD Electronically signed by Raghu Truong MD 12/29/2019 11:47 | | | AM | | + + + + + + | Narrative | Performed At | + + + | DEXA BONE DENSITY STUDY WO VERT FX ASSESSMENT 12/29/2019 11:29 AM | [facility] | | HISTORY: f/u osteoporosis. COMPARISON: 12/20/2018. PROTOCOL: | | | Bone mineral density was calculated with dual absorption x-ray | | | technique. FINDINGS: Bone mineral density for the left femoral | | | neck is 0.702 g/cm2, corresponding to a T score of -2.4 and a Z score | | | of -0.9. Bone mineral density for the lumbar spine measured from | | | L1 to L4 is 0.972 g/cm2, corresponding to a T score of -1.8 and a Z | | | score of -0.3. Bone mineral density for the left distal radius is | | | 0.5-1 g/cm2, corresponding to a T score of -2.5 and a Z score of | | | -0.7. | | + + + + + | Procedure Note | + + | Vishnu, [id number] - 12/29/2019 11:50 AM PDT DEXA BONE DENSITY STUDY WO VERT FX ASSESSMENT | | 12/29/2019 11:29 AMHISTORY: f/u osteoporosis.COMPARISON: 12/20/2018.PROTOCOL: Bone mineral | | density was calculated with dual absorptionx-ray technique.FINDINGS:Bone mineral | | density for the left femoral neck is 0.702 g/cm2,corresponding to a T score of -2.4 and | | a Z score of -0.9.Bone mineral density for the lumbar spine measured from L1 to L4 | | is0.972 g/cm2, corresponding to a T score of -1.8 and a Z score of -0.3.Bone mineral | | density for the left distal radius is 0.5-1 g/cm2,corresponding to a T score of -2.5 and | | a Z score of -0.7.IMPRESSION: LEFT FEMORAL NECK: Fracture risk: Increased; WHO | | classification:Osteopenia, borderline osteoporosis and slightly improved.L1-L4 REGION OF | | THE LUMBAR SPINE: Fracture risk: Increased; WHOclassification: Osteopenia, slightly | | improved.LEFT FOREARM: RADIUS: Fracture risk: High; WHO | | classification:Osteoporosis.World Health Organization ClassificationNormal: | | T score at or above -1 SDOsteopenia: T score between -1 and -2.5 | | SDOsteoporosis: T score at or below -2.5 SDElectronically signed by Raghu Truong | | 12/29/2019 11:47 AM | | | |Bone mineral density for the left distal radius is 0.5-1 g/cm2, | |corresponding to a T score of -2.5 and a Z score of -0.7. | | | |IMPRESSION: | |LEFT FEMORAL NECK: Fracture risk: Increased; WHO classification: | |Osteopenia, borderline osteoporosis and slightly improved. | | | |L1-L4 REGION OF THE LUMBAR SPINE: Fracture risk: Increased; WHO | |classification: Osteopenia, slightly improved. | | | |LEFT FOREARM: RADIUS: Fracture risk: High; WHO classification: | |Osteoporosis. | | | |World Health Organization Classification | |Normal: T score at or above -1 SD | |Osteopenia: T score between -1 and -2.5 SD | |Osteoporosis: T score at or below -2.5 SD | | | |Electronically signed by Raghu Truong MD 12/29/2019 11:47 AM | + + + +---------+ + + | Performing | Address | City/State/Zipcode | Phone Number | | Organization | | | | + +---------+ + + | [facility] | | | | + +---------+ + + Vitamin D, Deficiency Screen (25-Hydroxy) (11/20/2019 3:31 PM PDT) + +-------+ + + + | Component | Value | Ref Range | Performed | Pathologist | | | | | At | Signature | + +-------+ + + + | Vitamin D, | 51 | 30 - 100 ng/mL | [facility] | | | 25 Hydroxy | | | [facility] | | [...] [address] | [place] | [phone] | | [facility] | | [address] | | | - LABORATORY | | | | + + + + + Insulin-Like Growth Factor 1 (11/20/2019 3:31 PM PDT) + + + + + + | Component | Value | Ref Range | Performed | Pathologist | | | | | At | Signature | + + + + + + | Insulin-lik | 141Comment: Effective | 38 - 163 ng/mL | [facility] | | | e Growth | November 27, 2019, | | LAB [facility] | | | Factor 1 | Insulin-Like Growth | | - BKR | | | | Factor I reference | | | | | | interval will be | | | | | | changing due to recently | | | | | | completed reference | | | | | | interval studies. | | | | + + + + + + + + | Specimen | + + | Blood | + + + + + | Narrative | Performed At | + + + | Performed at: 01 - [facility], | [facility] | | [place] [id number] [place]: Sheron Vera MD, Phone: | [place] | | [phone] | | + + + + + + + + | Performing | Address | City/State/Zipcode | Phone Number | | Organization | | | | + + + + + | [facility] | [address] | [place], [place] | [phone] | | [place] | [facility] | [address] | | + + + + + T4, Free (11/20/2019 3:31 PM PDT) + +-------+ + + + | Component | Value | Ref Range | Performed | Pathologist | | | | | At | Signature | + +-------+ + + + | FT4 | 1.4 | 0.9 - 1.8 ng/dL | [facility] | | | | | [...] [address] | [place] | [phone] | | [facility] | | [address] | | | - LABORATORY | | | | + + + + + Phosphorus (11/20/2019 3:31 PM PDT) + +-------+ + + + | Component | Value | Ref Range | Performed | Pathologist | | | | | At | Signature | + +-------+ + + + | Phosphorus | 3.7 | 2.4 - 5.1 mg/dL | [facility] | | | | [...] + | [facility] | [address] | [place] | [phone] | | [facility] | | [address] | | | - LABORATORY | | | | + + + + + Parathyroid Hormone, Intact (11/20/2019 3:31 PM PDT) + + + + + + | Component | Value | Ref Range | Performed | Pathologist | | | | | At | Signature | + + + + + + | PTH Intact | 69Comment: New method in | 19 - 88 pg/mL | [facility] | | | | use as of August 03, | | [facility] | | | | [facility]. Check reference | | MEDICAL | | | | range for changes.Some | | CENTER - | | | | analytes show | | LABORATORY | | | | significant variation | | | | | | from the previous | | | | | | method.It may be | | | | | | necessary to set a new | | | | | | baseline for this | | | | | | analyte. | | | | + + + + + + + + | Specimen | + + | Blood | + + + + + + + | Performing | Address | City/State/Zipcode | Phone Number | | Organization | | | | + + + + + | [facility] | [address] | [place] | [phone] | | [facility] | | [address] | | | - LABORATORY | | | | + + + + + from Last 3 Months Insurance + +--------+ +--------+ +---------+--------+ | Payer | Benefi | Subscriber | Effect | Phone | Address | Type | | | t Plan | ID | tameka | | | | | | / | | Dates | | | | | | Group | | | | | | + +--------+ +--------+ +---------+--------+ | [facility] | [facility] | [id number] | 06/07/19 | [phone] | | PPO | | | E | 41 | 16-Pre | 8 | | | | | UNIFOR | | sent | | | | | | M MED | | | | | | | | PLAN | | | | | | + +--------+ +--------+ +---------+--------+ | [facility] | REGENC | [id number] | 06/07/19 | [phone] | | PPO | | | E | 41 | 20-Pre | 8 | | | | | UNIFOR | | sent | | | | | | M MED | | | | | | | | PLAN | | | | | | + +--------+ +--------+ +---------+--------+ | MEDICARE | MEDICA | [id number] | 02/06/20 | [phone] | | Medica | | | RE | | 15-Pre | 5 | | re | | | PART A | | sent | | | | + +--------+ +--------+ +---------+--------+ + +--------+ +--------+ + + | Guarantor Name | Accoun | Relation to | Date | Phone | Billing Address | | | t Type | Patient | of | | | | | | | | | | + +--------+ +--------+ + + | Mona Vogt | Person | Self | [birth year] | [address] | | | al/Fam | | 1950 | [phone] | [place] | | | matilde | | | 0 (Home) | [address] | | | | | | [phone] | | | | | | | 0 (Work) | | + +--------+ +--------+ + + | Mona Vogt | Person | Self | [birth year] | | [address] | | | al/Fam | | 1950 | [phone] | [place] | | | matilde | | | 0 (Home) | [address] | | | | | | [phone] | | | | | | | 9 (Work) | | + +--------+ +--------+ + + | 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[birth year] | | [address] | | | 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 | | 1950 | [phone] | [place] | | | | | | 0 (Home) | [address] | | | | | | [phone] | | | | | | | 0 (Work) | | + +--------+ +--------+ + + Advance Directives + + + + + | Type | Date Recorded | Patient | Explanation | | | | Underwriting Specialist | | + + + + + | Power of | | | | | Daytime Babysitter | | | | + + + + + | Advance | 03/12/2014 6:58 | | Pt has a home in family trust | | Directive | AM | | | + + + + + + + + + + | Code Status | Date | Date | Comments | | | Activated | Inactivated | | + + + + + | Full Code | 06/02/2019 | 06/02/2019 | | | | 3:45 PM | 8:28 PM | | + + + + + + + + +---+ | | | | | + + + +---+ | Full Code | 11/30/2015 | 12/02/2015 | | | | 4:02 AM | 8:16 PM | | + + + +---+
--- OUTSIDE RECORDS SUMMARY | ~2020-01-04 | XMS | Encounter Summary ---
Demographics + + + | Address | [address] | | | [place] [address] | + + + | Home Phone | | + + + | Preferred Language | Unknown | + + + | Marital Status | | + + + | Shinto Affiliation | 1027 | + + + | Race | Unknown | + + + | Ethnic Group | Unknown | + + + Author + + + | Author | [facility] | | | and [place] | + + + | Organization | [facility] | | [...] [place], | | | | | [place] [address] | | + + + + + | Ryan Vogt | ECON | Unknown | | + + + + + | Rob Vogt | ECON | Unknown | | + + + + + Care Team Providers + +------+ + | Care Spinning Bath Patroller Name | Role | Phone | + +------+ + | Abrahan Samaniego MD | PCP | | + +------+ + Reason for Visit + +--------+ + | Reason | Onset | Comments | | | Date | | + +--------+ + | Medication Refill | 08/27/ | | | | 2020 | | + +--------+ + Encounter Details +--------+--------+ + + + | Date | Type | Department | Care Team | Description | +--------+--------+ + + + | 08/27/ | Refill | [facility] | Cheryl Zee MD | Medication Refill | | 2019 | | [place] | [address] [place] | | | | | ENDOCRINOLOGY [address] | [address] [place] | | | | [address] [place] [address] | [phone] | | | | | [place] | | | | | | [address] | | | | | | [phone] | | | +--------+--------+ + + + [...] [place] | | | | | | [address] | | | | | | | | +--------+---------+ + + + | 07/25/ | Office | Cardiology | Renetta, | | | 2020 | Visit | | [facility] [address] | | | | | | [place] | | | | | | [place] [address] | | | | | | [phone] | | | | | | | | +--------+---------+ + + + | 09/03/ | Office | Endocrinology | Cheryl Zee MD | | | 2020 | Visit | | [address] [place] | | | | | | [address] [place] | | | | | | [address] | | | | | | | | +--------+---------+ + + + documented as of this encounter Visit Diagnoses Not on filedocumented in this encounter"
--- OUTSIDE RECORDS SUMMARY | ~2020-01-04 | XMS | Encounter Summary ---
Demographics + + + | Address | [address] | | | [place] [address] | + + + | Home Phone | | + + + | Preferred Language | Unknown | + + + | Marital Status | | + + + | Judaism Affiliation | 1027 | + + + | Race | Unknown | + + + | Ethnic Group | Unknown | + + + Author + + + | Author | [facility] | | | and [place] | + + + | Organization | [facility] | | | [...] [place], | | | | | [place] [address] | | + + + + + | Ryan Vogt | ECON | Unknown | | + + + + + | Rob Vogt | ECON | Unknown | | + + + + + Care Team Providers + +------+ + | Care Ophthalmic Nurse Name | Role | Phone | + +------+ + | Abrahan Samaniego MD | PCP | | + +------+ + Encounter Details +--------+ + + + + | Date | Type | Department | Care Team | Description | +--------+ + + + + | 06/19/ | Abstract | [facility] [place] [facility] | Abrahan Samaniego MD | | | 2015 | | MEDICINE [address] | [address] [facility] | | | | | [place], | [place] | | | | | [place] [address] | [id number] | | | | | [phone] | | | +--------+ + + + [...] | | | | | | [place] [address] | | | | | | [phone] | | | | | | | [...] | + +--------+ + + + | EXTERNAL LAB: | Routin | 05/27/2015 | | Results for this | | TRIGLYCERIDES | e | | | procedure are in the | | | | | | results section. | + +--------+ + + + | EXTERNAL LAB: | Routin | 05/27/2015 | | Results for this | | CHOLESTEROL, HDL | e | | | procedure are in the | | | | | | results section. | + +--------+ + + + | EXTERNAL LAB: | Routin | 05/27/2015 | | Results for this | | CHOLESTEROL, TOTAL | e | | | procedure are in the | | | | | | results section. | + +--------+ + + + | EXTERNAL LAB: | Routin | 05/27/2015 | | Results for this | | CHOLESTEROL, LDL | e | | | procedure are in the | | | | | | results section. | + +--------+ + + + | LIPID PANEL | Routin | 05/27/2015 | | Results for this | | | e | | | procedure are in the | | | | | | results section. | + +--------+ + + + | VITAMIN D, | Routin | 05/27/2015 | | Results for this | | DEFICIENCY SCREEN | e | | | procedure are in the | | (25-HYDROXY) | | | | results section. | + +--------+ + + + | PROLACTIN | Routin | 05/27/2015 | | Results for this | | | e | | | procedure are in the | | | | | | results section. | + +--------+ + + + | COMPREHENSIVE | Routin | 05/27/2015 | | Results for this | | METABOLIC PANEL | e | | | procedure are in the | | | | | | results section. | + +--------+ + + + documented in this encounter Results Vitamin D, 25-Hydroxy (05/27/2015) + +-------+ + + + | Component | Value | Ref Range | Performed | Pathologist | | | | | At | Signature | + +-------+ + + + | Vitamin D | 40 | 30 - 100 ng/mL | EXTERNAL | | | 1,25 | | | LAB | | | Dihydroxy, | | | | | | External | | | | | + +-------+ + + + + + | Specimen | + + | Blood specimen | | (specimen) | + + + +---------+ + + | Performing | Address | City/State/Zipcode | Phone Number | | Organization | | | | + +---------+ + + | EXTERNAL LAB | | | | + +---------+ + + Prolactin (05/27/2015) + +---------+ + + + | Component | Value | Ref Range | Performed | Pathologist | | | | | At | Signature | + +---------+ + + + | Prolactin | 1.5 (A) | 2.7 - 19.6 | EXTERNAL | | | | | ng/mL | LAB | | + +---------+ + + + + + | Specimen | + + | Blood specimen | | (specimen) | + + + +---------+ + + | Performing | Address | City/State/Zipcode | Phone Number | | Organization | | | | + +---------+ + + | EXTERNAL LAB | | | | + +---------+ + + Comprehensive Metabolic Panel (05/27/2015) + +-------+ + + + | Component | Value | Ref Range | Performed | Pathologist | | | | | At | Signature | + +-------+ + + + | Sodium, | 141 | 135 - 148 | EXTERNAL | | | External | | mmol/L | LAB | | + +-------+ + + + | Potassium, | 4.0 | 3.5 - 5.1 | EXTERNAL | | | External | | mmol/L | LAB | | + +-------+ + + + | Chloride, | 109 | 98 - 111 mmol/L | EXTERNAL | | | External | | | LAB | | + +-------+ + + + | Carbon | 27 | 22 - 32 mmol/L | EXTERNAL | | | Dioxide, | | | LAB | | | External | | | | | + +-------+ + + + | BUN, | 18 | 8 - 24 mg/dL | EXTERNAL | | | External | | | LAB | | + +-------+ + + + | Creatinine, | 0.84 | 0.40 - 1.30 | EXTERNAL | | | External | | mg/dL | LAB | | + +-------+ + + + | Glucose, | 93 | 65 - 100 mg/dL | EXTERNAL | | | External | | | LAB | | + +-------+ + + + | Calcium, | 9.1 | 8.6 - 10.6 | EXTERNAL | | | External | | mg/dL | LAB | | + +-------+ + + + | Bilirubin, | 0.4 | 0.3 - 1.4 mg/dL | EXTERNAL | | | Total, | | | LAB | | | External | | | | | + +-------+ + + + | Protein, | 6.3 | 6.0 - 8.0 g/dL | EXTERNAL | | | Total, | | | LAB | | | External | | | | | + +-------+ + + + | Albumin, | 3.7 | 3.5 - 5.0 g/dL | EXTERNAL | | | External | | | LAB | | + +-------+ + + + | ALP, | 65 | 36 - 130 IU/L | EXTERNAL | | | External | | | LAB | | + +-------+ + + + | AST, | 17 | 0 - 50 IU/L | EXTERNAL | | | External | | | LAB | | + +-------+ + + + | ALT, | 22 | 0 - 50 IU/L | EXTERNAL | | | External | | | LAB | | + +-------+ + + + | eGFR, | 68.0 | 60 mL/min/1.73 | EXTERNAL | | | External | | m^2 | LAB | | + +-------+ + + + | Anion Gap | 9 | 5 - 16 mmol/L | EXTERNAL | | | | | | LAB | | + +-------+ + + + + + | Specimen | + + | Blood specimen | | (specimen) | + + + +---------+ + + | Performing | Address | City/State/Zipcode | Phone Number | | Organization | | | | + +---------+ + + | EXTERNAL LAB | | | | + +---------+ + + Lipid Panel (05/27/2015) + +---------+ + + + | Component | Value | Ref Range | Performed | Pathologist | | | | | At | Signature | + +---------+ + + + | Cholesterol | 239 (A) | 200 mg/dL | EXTERNAL | | | , Total, | | | LAB | | | External | | | | | + +---------+ + + + | Triglycerid | 99 | 150 mg/dL | EXTERNAL | | | es, | | | LAB | | | External | | | | | + +---------+ + + + | HDL | 53 | 40 - 60 mg/dL | EXTERNAL | | | Cholesterol | | | LAB | | | , External | | | | | + +---------+ + + + | LDL | 166 (A) | 0 - 130 mg/dL | EXTERNAL | | | Cholesterol | | | LAB | | | , Direct, | | | | | | External | | | | | + +---------+ + + + + + | Specimen | + + | Blood specimen | | (specimen) | + + + +---------+ + + | Performing | Address | City/State/Zipcode | Phone Number | | Organization | | | | + +---------+ + + | EXTERNAL LAB | | | | + +---------+ + + External Lab: Triglycerides (05/27/2015) + +-------+ + + + | Component | Value | Ref Range | Performed | Pathologist | | | | | At | Signature | + +-------+ + + + | Triglycerid | 99 | 150 | EXTERNAL | | | es, | | | LAB | | | External | | | | | + +-------+ + + + + + | Specimen | + + | Blood specimen | | (specimen) | + + + +---------+ + + | Performing | Address | City/State/Zipcode | Phone Number | | Organization | | | | + +---------+ + + | EXTERNAL LAB | | | | + +---------+ + + External Lab: Cholesterol, HDL (05/27/2015) + +-------+ + + + | Component | Value | Ref Range | Performed | Pathologist | | | | | At | Signature | + +-------+ + + + | HDL | 53 | 40 - 60 mg/dl | EXTERNAL | | | Cholesterol | | | LAB | | | , External | | | | | + +-------+ + + + + + | Specimen | + + | Blood specimen | | (specimen) | + + + +---------+ + + | Performing | Address | City/State/Zipcode | Phone Number | | Organization | | | | + +---------+ + + | EXTERNAL LAB | | | | + +---------+ + + External Lab: Cholesterol, Total (05/27/2015) + +---------+ + + + | Component | Value | Ref Range | Performed | Pathologist | | | | | At | Signature | + +---------+ + + + | Cholesterol | 239 (A) | 200 mg/dl | EXTERNAL | | | , Total, | | | LAB | | | External | | | | | + +---------+ + + + + + | Specimen | + + | Blood specimen | | (specimen) | + + + +---------+ + + | Performing | Address | City/State/Zipcode | Phone Number | | Organization | | | | + +---------+ + + | EXTERNAL LAB | | | | + +---------+ + + External Lab: Cholesterol, LDL (05/27/2015) + +---------+ + + + | Component | Value | Ref Range | Performed | Pathologist | | | | | At | Signature | + +---------+ + + + | LDL | 166 (A) | 0 - 130 | EXTERNAL | | | Cholesterol | | | LAB | | | , Direct, | | | | | | External | | | | | + +---------+ + + + + + | Specimen | + + | Blood specimen | | (specimen) | + + + +---------+ + + | Performing | Address | City/State/Zipcode | Phone Number | | Organization | | | | + +---------+ + + | EXTERNAL LAB | | | | + +---------+ + + documented in this encounter Visit Diagnoses Not on filedocumented in this encounter"
--- OUTSIDE RECORDS SUMMARY | ~2020-01-04 | XMS | Encounter Summary ---
Demographics + + + | Address | [address] | | | [place] [address] | + + + | Home Phone | | + + + | Preferred Language | Unknown | + + + | Marital Status | | + + + | Christianity Affiliation | 1027 | + + + | Race | Unknown | + + + | Ethnic Group | Unknown | + + + Author + + + | Author | [facility] | | | and [place] | + + + | Organization | [facility] | | | [...] [place], | | | | | [place] [address] | | + + + + + | Ryan Vogt | ECON | Unknown | | + + + + + | Rob Vogt | ECON | Unknown | | + + + + + Care Team Providers + +------+ + | Care Full Stack Engineer Name | Role | Phone | + +------+ + | Abrahan aSmaniego MD | PCP | | + +------+ + Reason for Visit + + + | Reason | Comments | + + + | 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 poked with | | | tattoo gun on floor, RM 5 | + + + Encounter Details +--------+---------+ + + + | Date | Type | Department | Care Team | Description | +--------+---------+ + + + | 07/11/ | Office | [facility] [place] [facility] | Shaji Leroy, | Needle stick injury, | | 2017 | Visit | CARE [address] | [address] | initial encounter | | | | [place] | [place] | (Primary Dx) | | | | [address] | [address] | | | | | [phone] | | | +--------+---------+ + + + [...] + + + | Blood Pressure | 143/78 | 07/11/2016 3:59 PM | | | | | PST | | + + + + + | Pulse | 71 | 07/11/2016 3:59 PM | | | | | PST | | + + + + + | Temperature | 36.6 C (97.9 F) | 07/11/2016 3:59 PM | | | | | PST | | + + + + + | Respiratory Rate | 18 | 07/11/2016 3:59 PM | | | | | PST | | + + + + + | Oxygen Saturation | 98% | 07/11/2016 3:59 PM | | | | | PST | | + + + + + | Inhaled Oxygen | - | - | | | Concentration | | | | + + + + + | Weight | 68.5 kg (151 lb) | 07/11/2016 3:59 PM | | | | | PST | | + + + + + | Height | 161.3 cm (5' 3.5") | 07/11/2016 3:59 PM | | | | | PST | | + + + + + | Body Mass Index | 26.33 | 07/11/2016 3:59 PM | | | | | PST | | + + + + + documented in this encounter Patient Instructions Patient Instructions Shaji Leroy MD - 07/11/2016 4:34 PM PSTJust come back in approx imately 1 week so we can discuss her lab results. documented in this encounter Progress Notes Shaji Leroy MD - 07/11/2016 5:04 PM PSTFormatting of this note might be different fr om the original. Subjective: Patient ID: Oliva Vogt is a 66 y.o. female. HPI Patient's medications, allergies, past medical, surgical, social and family histories were obtained and reviewed as appropriate. This lady came in because of a needlestick injury. I know her from when I worked at the [employer]. She was checking today on a tenant's apartment because he had a broken pipe. S he bumped up against a little table and felt something stick her leg. She looked and checke d and talk to him and found that it was a tattoo needle. It had gone through her jeans and poked her right leg. It hermelindo just a small amount of blood and that is all. He says the neselvin dle is clean and he is never used it and he says he does not have hepatitis C or hepatitis B or HIV. She has no other complaint. I reviewed her past history and meds. Review of Systems Constitutional: Negative. HENT: Negative. Respiratory: Negative. Cardiovascular: Negative. Gastrointestinal: Negative. Objective: Physical Exam Constitutional: She is oriented to person, place, and time. She appears well-developed and well-nourished. HENT: Head: Normocephalic. Eyes: Pupils are equal, round, and reactive to light. Cardiovascular: Normal rate. Pulmonary/Chest: Effort normal. Musculoskeletal: Normal gait and balance. On the medial aspect of the upper calf area of the lower right le g there is a tiny red puncture site where the needle injured her. Neurological: She is alert and oriented to person, place, and time. Vitals reviewed. Assessment: 1. Needle stick injury, initial encounter Hepatitis B Surface Ab Hepatitis C Ab HIV 1 and 2 Ab, Reflex Plan: Please see the AVS for the plan unless outlined elsewhere. Since she works at the [employer] she has already had the immunization series for hepatit is B. I phoned the pipeline and use myself on on speaker phone and we had a discussion with a doctor Owen who was very helpful. She confirmed what I suspected and that is that pro phylactic treatment for HIV is not indicated here. So we will simply get hepatitis B surfac e antibody to test whether she got good response to her immunizations for hepatitis B and we 'll get a hepatitis C antibody for baseline and also an HIV test for baseline. She is to co me back in one week to discuss the lab results. Normally then the next set of tests will be in 6 weeks and then I believe the one more set at 6 months. She had no questions. Noemi No, Trout Farmer - 07/11/2016 4:42 PM PSTVenipuncture to patients Right AC with 23 gauge b utterfly needle. Two gold tops were drawn. Patient tolerated well. Verified name and date of of patient before provider orders were carried out. [facility] Plan of Treatment +--------+---------+ + + + | Date | Type | Specialty | Care Team | Description | +--------+---------+ + + + | 04/29/ | Office | Internal Medicine | Abrahan Samaniego MD | | | 2019 | Visit | | [address] [place] [address] | | | | | | [place] | | | | | | [address] | | | | | | | | +--------+---------+ + + + | 07/25/ | Office | Cardiology | Renetta, | | | 2020 | Visit | | [facility] [address] | | | | | | [place] | | | | | | [place] [address] | | | | | | [phone] | | | | | | | [...] | + +--------+ + + + | HEPATITIS C AB | Routin | 07/11/2016 | Needle stick | Results for this | | | e | 4:36 PM | injury, initial | procedure are in the | | | | PST | encounter | results section. | + +--------+ + + + | HIV 1 AND 2 AB, | Routin | 07/11/2016 | Needle stick | Results for this | | REFLEX | e | 4:36 PM | injury, initial | procedure are in the | | | | PST | encounter | results section. | + +--------+ + + + | HEPATITIS B SURFACE | Routin | 07/11/2016 | Needle stick | Results for this | | AB | e | 4:36 PM | injury, initial | procedure are in the | | | | PST | encounter | results section. | + +--------+ + + + documented in this encounter Results HIV 1 and 2 Ab, Reflex (07/11/2016 4:36 PM PST) + + + + + + | Component | Value | Ref Range | Performed | Pathologist | | | | | At | Signature | + + + + + + | HIV 1/2 | Non ReactiveComment: | NR | REFERENCE | | | Ag/Ab | Testing Performed: [facility], | | [facility] | | | | [address], | | | | | | [place] [address] | | | | + + + + + + + + | Specimen | + + | Blood specimen | | (specimen) | + + + + + + + | Performing | Address | City/State/Zipcode | Phone Number | | Organization | | | | + + + + + | [facility] | [address] | [place] [address] | [phone] | + + + + + Hepatitis C Ab (07/11/2016 4:36 PM PST) + + + + + + | Component | Value | Ref Range | Performed | Pathologist | | | | | At | Signature | + + + + + + | Hepatitis C | See Comments (A)Comment: | NR | REFERENCE | | | Ab | ReactiveSignal/Cutoff | | [facility] | | | | Ratio: 37.87The Lyle | | | | | | johnson immunoassay method | | | | | | is used.Hepatitis C | | | | | | results reported in | | | | | | accordance with CDC | | | | | | guidelines.Specimens | | | | | | reported as "Reactive" | | | | | | are strongly reactive | | | | | | withSignal/Cutoff ratios | | | | | | >= 150.00. | | | | | | Approximately 95% of | | | | | | these specimenswill | | | | | | confirm positive by a | | | | | | more specific serologic | | | | | | or nucleic acidtest | | | | | | (CAR[place])Specimens that have | | | | | | Signal/Cutoff ratios | | | | | | from 1.00 - 149.99 | | | | | | areconsidered "Weak | | | | | | Reactives". CDC | | | | | | guidelines suggest that | | | | | | more | | | | | | specificconfirmatory | | | | | | testing can be limited | | | | | | to "Weak Reactive" | | | | | | findings.Possible Acute | | | | | | or Chronic HCV | | | | | | infection. False | | | | | | positive screenreactions | | | | | | are known to occur. | | | | | | Quantitative HCV RNA by | | | | | | PCR isrecommended for | | | | | | confirmation. PCR will | | | | | | require a new EDTA | | | | | | plasmaspecimen.If this | | | | | | is a notifiable | | | | | | condition in your state, | | | | | | as the provider,please | | | | | | ensure you follow all | | | | | | applicable local and | | | | | | state | | | | | | reportingrequirements.Te | | | | | | sting Performed: [facility], | | | | | | [address], | | | | | | [place] [address] | | | | + + + + + + + + | Specimen | + + | Blood specimen | | (specimen) | + + + + + + + | Performing | Address | City/State/Zipcode | Phone Number | | Organization | | | | + + + + + | [facility] | [address] | [place] [address] | [phone] | + + + + + Hepatitis B Surface Ab (07/11/2016 4:36 PM PST) + + + + + + | Component | Value | Ref Range | Performed | Pathologist | | | | | At | Signature | + + + + + + | Hepatitis B | 28.6Comment: 11.5 or | >11.4 mIU/mL | REFERENCE | | | Surface Ab | greater Indicates | | [facility] | | | | vaccine response or | | | | | | response to | | | | | | HBVinfection.Samples | | | | | | with a calculated value | | | | | | of 10 mIU/mL or greater | | | | | | are consideredreactive | | | | | | (protective) in | | | | | | accordance with the CDC | | | | | | guidelines.NOTE NEW | | | | | | REFERENCE RANGETesting | | | | | | Performed: [facility], [address] | | | | | [address], [place] | | | | | | [address] | | | | + + + + + + + + | Specimen | + + | Blood specimen | | (specimen) | + + + + + + + | Performing | Address | City/State/Zipcode | Phone Number | | Organization | | | | + + + + + | [facility] | [address] | [place] [address] | [phone] | + + + + + documented in this encounter Visit Diagnoses + + | Diagnosis | + + | Needle stick injury, initial encounter - Primary | + + documented in this encounter
--- OUTSIDE RECORDS SUMMARY | ~2020-01-04 | XMS | Encounter Summary ---
Demographics + + + | Address | [address] | | | [place] [address] | + + + | Home Phone | | + + + | Preferred Language | Unknown | + + + | Marital Status | | + + + | Mormon Affiliation | 1027 | + + + | Race | Unknown | + + + | Ethnic Group | Unknown | + + + Author + + + | Author | [facility] | | | and [place] | + + + | Organization | [facility] | | [...] [place], | | | | | [place] [address] | | + + + + + | Ryan Vogt | ECON | Unknown | | + + + + + | Rob Vogt | ECON | Unknown | | + + + + + Care Team Providers + +------+ + | Care Stone Dresser Name | Role | Phone | + +------+ + | Abrahan Samaniego MD | PCP | | + +------+ + Encounter Details +--------+ + + + + | Date | Type | Department | Care Team | Description | +--------+ + + + + | 03/03/ | Hospital [facility] | [facility] | | | 2018 | Encounter | [facility] | [address] | | | | | [address] | [facility] | | | | | [address], [place] | [place] [address] | | | | | [address] | [phone] | | | | | [phone] | | | +--------+ + + + [...] + +---------+ + + | atorvaSTATin | take 1 tablet by | 90 | 2 | 06/14/19 | | | (LIPITOR) 10 mg | mouth AT NIGHT | tablet | | 18 | 8 | | tablet | | | | | | + + + +---------+ + + | | Take by mouth. | | 0 | | | | Yatdbtx-Olraoarib-Jq | | | | | 9 | | tamin D (CALCIUM | | | | | | | MAGNESIUM PO) | | | | | | + + + +---------+ + + | cholecalciferol | Take 2 tablets by | | 0 | 09/01/19 | | | (VITAMIN D-3) 1,000 | mouth Daily. | | | 18 | 8 | | units tablet | | | | | | + + + +---------+ + + | levothyroxine | Take 1 tablet by | 90 | 4 | 09/08/19 | | | (SYNTHROID) 100 mcg | mouth every morning | tablet | | 18 | 9 | | tabletIndications: | (before breakfast). | | | | | | Secondary | | | | | | | hypothyroidism | | | | | | + + + +---------+ + + | potassium chloride | Take 1 tablet by | 90 | 3 | 06/25/19 | | | (KLOR-CON) 10 mEq | mouth Daily. 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
--- OUTSIDE RECORDS SUMMARY | ~2020-01-04 | XMS | Encounter Summary ---
Demographics + + + | Address | [address] | | | [place] [address] | + + + | Home Phone | | + + + | Preferred Language | Unknown | + + + | Marital Status | | + + + | Sikhism Affiliation | 1027 | + + + | Race | Unknown | + + + | Ethnic Group | Unknown | + + + Author + + + | Author | [facility] | | | and [place] | + + + | Organization | [facility] | | [...] [place], | | | | | [place] [address] | | + + + + + | Ryan Vogt | ECON | Unknown | | + + + + + | Rob Vogt | ECON | Unknown | | + + + + + Care Team Providers + +------+ + | Care Surfacer Operator Name | Role | Phone | + +------+ + | Abrahan Samaniego MD | PCP | | + +------+ + Reason for Visit + +--------+ + | Reason | Onset | Comments | | | Date | | + +--------+ + | Medication | 08/16/ | | | Management | 2017 | | + +--------+ + Encounter Details +--------+ + + + + | Date | Type | Department | Care Team | Description | +--------+ + + + + | 08/16/ | Telephone | [facility] | Abrahan Samaniego MD | Medication | | 2017 | | [address] | [address] [place] [address] | Management | | | | [place], | [place] | | | | | [place] [address] | [address] | | | | | [phone] | | | +--------+ + + + [...] Telephone Encounter - Christina Wilson LPN - 08/16/2017 1:41 PM PDTNotified patient of pre dnisone titration. el ephone Encounter - Abrahan Samaniego MD - 08/16/2017 12:53 PM PDTCan lower back to 10 mg daily for 3 days then 7.5 mg daily for 3 days and then back to her regular 5 mg daily dose.Electr onically signed by Abrahan Samaniego MD at 08/16/2017 12:54 PM PDTTelephone Encounter - Christina Wilson LPN - 08/16/2017 11:41 AM PDTPatient states she took the increased dose of prednis one (20mg Fri., Sat., Sun) - states she is feeling much better today - "deep fatigue" gone - still has cough but overall feeling ok. Asks if she needs to titrate back down to her kaitlin l dose of 5mg daily e lephone Encounter - Priya Walls - 08/16/2017 11:23 AM PDTPatient called wanting to sp eak with the nurse. Patient stated on Wednesday she spoke with the nurse and Dr. Samaniego raise d the dose of prednisone. Patient would like to know if she can now decrease to 5 mg or if she needs to taper it down. Patient states her cold is not nearly as bad as it was. Patien t would like a call back to advise, . documented in this encounter Plan of Treatment [...] | | | | | | [place] [address] | | | | | | [phone] | | | | | | | [...]
--- OUTSIDE RECORDS SUMMARY | ~2020-01-04 | XMS | Encounter Summary ---
Demographics + + + | Address | [address] | | | [place] [address] | + + + | Home Phone | | + + + | Preferred Language | Unknown | + + + | Marital Status | | + + + | Sikh Affiliation | 1027 | + + + | Race | Unknown | + + + | Ethnic Group | Unknown | + + + Author + + + | Author | [facility] | | | and [place] | + + + | Organization | [facility] | | [...] [place], | | | | | [place] [address] | | + + + + + | Ryan Vogt | ECON | Unknown | | + + + + + | Rob Vogt | ECON | Unknown | | + + + + + Care Team Providers + +------+ + | Care Spray Drier Name | Role | Phone | + +------+ + | Abrahan Samaniego MD | PCP | | + +------+ + Encounter Details +--------+ + + + + | Date | Type | Department | Care Team | Description | +--------+ + + + + | 02/03/ | Orders Only | [facility] [place] [facility] | Abrahan Samaniego MD | Right wrist pain | | 2015 | | MEDICINE [address] | [address] [facility] | (Primary Dx) | | | | [place], | [place] | | | | | [place] [address] | [address] | | | | | [phone] | | | +--------+ + + + [...] | | | | | | [place] [address] | | | | | | [phone] | | | | | | | | +--------+---------+ + + + | 09/03/ | Office | Endocrinology | Cheryl Zee MD | | | 2020 | Visit | | [address] [place] | | | | | | [address] [place] | | | | | | [address] | | | | | | | | +--------+---------+ + + + documented as of this encounter Results XR Wrist Right 2 Vw (02/04/2016 4:16 PM PDT) + + | Specimen | + + | | + + + + + | Narrative | Performed At | + + + | XR WRIST RIGHT 2 VW 02/04/2016 4:16 PM HISTORY: rt wrist | [facility] | | pain/bump rt wrist. COMPARISON: None. FINDINGS: There are no | [facility] | | acute osseous findings. Mild degenerative changes are visualized of | [facility] | | the first basal joint. Bone mineralization is normal. Soft tissues are | - IMAGING | | unremarkable. IMPRESSION - No acute osseous findings, mild | | | degenerative changes of first basal joint. Dictated and Signed by: | | | Luke Lanza MD Electronically signed: 02/04/2016 5:15 PM | | + + + + + | Procedure Note | + + | Vishnu, Rad Results In - 02/04/2016 5:18 PM PDT XR WRIST RIGHT 2 VW 02/04/2016 4:16 PM | | | | HISTORY: rt wrist pain/bump rt wrist. | | | | COMPARISON: None. | | | | FINDINGS: | | There are no acute osseous findings. Mild degenerative changes are visualized of | | the first basal joint. Bone mineralization is normal. Soft tissues are | | unremarkable. | | | | IMPRESSION - | | No acute osseous findings, mild degenerative changes of first basal joint. | | | | Dictated and Signed by: Luke Lanza MD | | Electronically signed: 02/04/2016 5:15 PM | + + + + + + + | Performing | Address | City/State/Zipcode | Phone Number | | Organization | | | | + + + + + | [facility] | [address] | [place], [place] | [phone] | | [facility] | | [address] | | | - IMAGING | | | | + + + + + documented in this encounter Visit Diagnoses + + | Diagnosis | + + | Right wrist pain - Primary Pain in joint, forearm | + + documented in this encounter"
--- OUTSIDE RECORDS SUMMARY | ~2020-01-04 | XMS | Encounter Summary ---
Demographics + + + | Address | [address] | | | [place] [address] | + + + | Home Phone | | + + + | Preferred Language | Unknown | + + + | Marital Status | | + + + | Uatsdin Affiliation | 1027 | + + + | Race | Unknown | + + + | Ethnic Group | Unknown | + + + Author + + + | Author | [facility] | | | and [place] | + + + | Organization | [facility] | | | [...] [place], | | | | | [place] [address] | | + + + + + | Ryan Vogt | ECON | Unknown | | + + + + + | Rob Vogt | ECON | Unknown | | + + + + + Care Team Providers + +------+ + | Care Evaporator Repairer Name | Role | Phone | + +------+ + | Abrahan Samaniego MD | PCP | | + +------+ + Encounter Details +--------+ + + + + | Date | Type | Department | Care Team | Description | +--------+ + + + + | 02/28/ | Abstract | [facility] | Abrahan Samaniego MD | | | 2011 | | Anti-Coagulation | [address] [facility] | | | | | Clinic | [place] | | | | | | [address] | | | | | | | | +--------+ + [...] [place] | | | | | | [address] | | | | | | | | +--------+---------+ + + + | 07/25/ | Office | Cardiology | Renetta, | | | 2020 | Visit | | [facility] [address] | | | | | | [place] | | | | | | [place] [address] | | | | | | [phone] | | | | | | | | +--------+---------+ + + + | 09/03/ | Office | Endocrinology | Cheryl Zee MD | | | 2020 | Visit | | [address] [place] | | | | | | [address] [place] | | | | | | [id number] | | | | | | | | +--------+---------+ + + + documented as of this encounter Visit Diagnoses Not on filedocumented in this encounter"
--- OUTSIDE RECORDS SUMMARY | ~2020-01-04 | XMS | Encounter Summary ---
Demographics + + + | Address | [address] | | | [place] [address] | + + + | Home Phone | | + + + | Preferred Language | Unknown | + + + | Marital Status | | + + + | Synagogue Affiliation | 1027 | + + + | Race | Unknown | + + + | Ethnic Group | Unknown | + + + Author + + + | Author | [facility] | | | and [place] | + + + | Organization | [facility] | | | [...] [place], | | | | | [place] [address] | | + + + + + | Ryan Vogt | ECON | Unknown | | + + + + + | Rob Vogt | ECON | Unknown | | + + + + + Care Team Providers + +------+ + | Care Church Supervisor Name | Role | Phone | + +------+ + | Abrahan Samaniego MD | PCP | | + +------+ + Reason for Visit + +--------+ + | Reason | Onset | Comments | | | Date | | + +--------+ + | Paperwork | 06/02/ | | | | 2015 | | + +--------+ + Encounter Details +--------+ + + + + | Date | Type | Department | Care Team | Description | +--------+ + + + + | 06/02/ | Telephone | [facility] | Abrahan Samaniego MD | Paperwork | | 2015 | | [address] | [address] [place] [address] | | | | | [place], | [place] | | | | | [place] [address] | [address] | | | | | [phone] | | | +--------+ + + + [...] this encounter Miscellaneous Notes Telephone Encounter - GueroMariannTaylorHarry grove Fady - 06/17/2016 4:26 PM PSTPatient picked up p aperwork last week. P STTelephone Encounter - Nini Martinez - 06/05/2016 9:24 AM PSTLeft voice message that c ompleted form is ready for tile picker with photo id. Copy has been made for scan. Placed in cab inet. elephone Encounter - Christina Wilson LPN - 06/05/2016 9:13 AM PSTPlease contact to pick-up formElectronicall y signed by Christina Wilson LPN at 06/05/2016 9:13 AM PSTTelephone Encounter - Abrahan Samaniego MD - 06/05/2016 8:41 AM PSTForm completed elephone Encounter - Christina Wilson LPN - 06/02/2016 4:04 PM PSTF orm to Dr. Samaniego. e lephone Encounter - Janell Tobias - 06/02/2016 3:56 PM PSTPatient brought in paperwork th at she needs filled out for work URI.This can be found in your box upfront. Please call romeo singh at [phone] when ready. documented in this encounter Plan of Treatment +--------+---------+ + + + | Date | Type | Specialty | Care Team | Description | +--------+---------+ + + + | 04/29/ | Office | Internal Medicine | Abrahan Samaniego MD | | | 2019 | Visit | | [facility] [address] | | | | | | [place] | | | | | | [address] | | | | | | | | +--------+---------+ + + + | 07/25/ | Office | Cardiology | Renetta, | | | 2020 | Visit | | [facility] [address] | | | | | | [place] | | | | | | [place] [address] | | | | | | [phone] | | | | | | | | +--------+---------+ + + + | 09/03/ | Office | Endocrinology | Cheryl Zee MD | | | 2020 | Visit | | [address] [place] | | | | | | [address] [place] | | | | | | [address] | | | | | | | | +--------+---------+ + + + documented as of this encounter Visit Diagnoses Not on filedocumented in this encounter"
--- OUTSIDE RECORDS SUMMARY | ~2020-01-04 | XMS | Encounter Summary ---
Demographics + + + | Address | [address] | | | [place] [address] | + + + | Home Phone | | + + + | Preferred Language | Unknown | + + + | Marital Status | | + + + | Pentecostalism Affiliation | 1027 | + + + | Race | Unknown | + + + | Ethnic Group | Unknown | + + + Author + + + | Author | [facility] | | | and [place] | + + + | Organization | [facility] | | [...] [place], | | | | | [place] [address] | | + + + + + | yRan oVgt | ECON | Unknown | | + + + + + | Rob Vogt | ECON | Unknown | | + + + + + Care Team Providers + +------+ + | Care Halftone Operator Name | Role | Phone | + +------+ + | Abrahan Samaniego MD | PCP | | + +------+ + Reason for Visit +---------+ + | Reason | Comments | +---------+ + | Fatigue | | +---------+ + Encounter Details +--------+---------+ + + + | Date | Type | Department | Care Team | Description | +--------+---------+ + + + | 11/12/ | Office | [facility] | Abrahan Samaniego MD | Adrenal | | 2020 | Visit | MEDICINE [address] [place] [address] | [address] [place] [address] | insufficiency (HCC) | | | | [place], | [place] | (Primary Dx) | | | | [place] [address] | [address] | | | | | [phone] | | | +--------+---------+ + + + [...] + + + | Blood Pressure | 142/68 | 11/13/2019 12:59 PM | | | | | PDT | | + + + + + | Pulse | 79 | 11/13/2019 12:59 PM | | | | | PDT | | + + + + + | Temperature | 36.4 C (97.5 F) | 11/13/2019 12:59 PM | | | | | PDT | | + + + + + | Respiratory Rate | 18 | 11/13/2019 12:59 PM | | | | | PDT | | + + + + + | Oxygen Saturation | 99% | 11/13/2019 12:59 PM | | | | | PDT | | + + + + + | Inhaled Oxygen | - | - | | | Concentration | | | | + + + + + | Weight | 71.7 kg (158 lb 1.1 | 11/13/2019 12:59 PM | | | | oz) | PDT | | + + + + + | Height | - | - | | + + + + + | Body Mass Index | 28 | 09/15/2019 9:17 AM | | | | | PDT | | + + + + + documented in this encounter Progress Notes Abrahan Samaniego MD - 11/13/2019 1:00 PM PDT Subjective: Patient ID: Oliva Vogt is a 69 y.o. female. 2 days ago she was helping a friend move and she felt very thirsty and gradually weaker ove r hte next hours to day. SHe had no energy, took a nap, was generally weak and had malaise. She wondered if she had adrenal crisis coming on so she called Dr Song who was instrumentation controls engineer and he told her to take an extra 3 mg (she took 5 mg instead) and she says that she started feel ing better and is back to herself this morning. She says that she feels very good. In retro spect she felt a little mentally foggy. There was no fever, chills. Denies urinary frequenc y, hesitancy, hematuria, nocturia, incontinence, flank pain,dysuria, malodorous urine, feve r, chills, incomplete emptying. No N/V, D. Denies hemoptysis, productive cough, wheezing, shortness of breath, dyspnea on exertion. Past Medical History: Diagnosis Date Adrenal insufficiency [...] (HCC) diagnosed 1986, though probably began Tinnitus Patient Active Problem List Diagnosis Date Noted POA Preventative health care 05/13/2012 Unknown Priority: High penitentiary (current) use of systemic steroids Unknown Priority: Low Vitamin D deficiency Unknown Priority: Low Hypokalemia due to loss of potassium 12/02/2015 Unknown Priority: Low High alkaline phosphatase level 07/28/2019 Unknown Essential hypertension 07/24/2019 Unknown Adverse effect of anesthesia 06/02/2019 Unknown Guero syndrome Unknown Complex tear of medial meniscus of right knee as current injury, initial encounter 04/08 Unknown Right knee pain, unspecified chronicity 05/05/2019 Unknown Acute pain of right knee 05/05/2019 Unknown Diplopia 01/27/2019 Unknown Growth hormone deficiency 10/05/2018 Unknown Localized edema 11/29/2017 Unknown Secondary hyperparathyroidism 09/07/2017 Unknown Osteoporosis 08/26/2017 Unknown Cervicalgia 07/16/2014 Unknown 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 Unknown Impaired mobility 07/16/2014 Unknown Secondary adrenal insufficiency 05/16/2012 Unknown HIP PAIN Unknown Secondary hypothyroidism Unknown Hyperlipidemia Unknown Chronic renal insufficiency, stage II (mild) Unknown DUPUYTREN'S CONTRACTURE 12/15/2011 Unknown OSTEOARTHRITIS, KNEE 12/15/2011 Unknown OTHER DISEASES OF NASAL CAVITY AND SINUSES 09/23/2011 Unknown 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 Unknown Frontal skull lesion 08/14/2011 Unknown OTHER AND UNSPECIFIED HYPERLIPIDEMIA 11/24/2010 Unknown Past Surgical History: Procedure Laterality Date CARDIAC CATHERIZATION Left 12/26/2018 Procedure: CV LHC; Surgeon: Benigno Deras MD; Location: [facility] CV LAB CHOLECYSTECTOMY COLONOSCOPY 03/12/2014 COLONOSCOPY; Laterality: N/A; Surgeon: Shaji Thornton MD; Location: [facility] MEDICAL PROCEDU RE UNIT CYST REMOVAL Left 1969 ENDOMETRIAL BIOPSY 2007 Benign KNEE ARTHROSCOPY Right 06/02/2019 Procedure: RIGHT KNEE ARTHROSCOPY AND DEBRIDEMENT, partial lateral meniscectomy, partial m edial meniscectomy, medial femoral chondroplasty, and patellar chondroplasty; Surgeon: Vj Watkins MD; Location: [facility] MAIN OR Skull Biopsy 09/28/2011 (Benign) TUBAL LIGATION Bilateral Family History Problem Relation Age of Onset High blood pressure Mother 84 of Aortic dissection Other (see comment) Father 74 of hemorrgagic CVA Stroke Father Arthritis Father Lung cancer Maternal Grandfather Abdominal aortic aneurysm Brother Lung cancer Sister Breast cancer Sister Current Outpatient Medications on File Prior to Visit Medication Sig Dispense Refill amLODIPine (NORVASC) 2.5 mg tablet Take 1 tablet by mouth Daily. 90 tablet 3 aspirin 325 mg tablet Take 1 tablet by mouth Daily. 30 tablet 0 atorvaSTATin (LIPITOR) 20 mg tablet Take 1 tablet by mouth nightly. 90 tablet 3 cholecalciferol (CHOLECALCIFEROL) 1000 units TABS Take 1 tablet by mouth Daily. levothyroxine (SYNTHROID) 100 mcg tablet Take 1 tablet by mouth every morning (before b reakfast). 90 tablet 4 potassium chloride (KLOR-CON) 10 mEq CR tablet [...] facility-administered medications on file prior to visit. Allergies Allergen Reactions Succinylcholine Chloride Other (See Comments) Was told by previous anesthesiologist that she has pseudocholinesterase deficiency and no t to use it again. Does not recall having a dibucaine test. Does not think she was intubated /sedated for a prolonged period after her procedure. ROS See above Objective:BP 142/68 | Pulse 79 | Temp 36.4 C (97.5 F) (Temporal) | Resp 18 | Wt 71. 7 kg (158 lb 1.1 oz) | SpO2 99% | BMI 28.00 kg/m BP sittin/62 HR sittin BP standin/70 HR standin Physical Exam GEN: No acute distress. HEENT:EOMI, OP normal CHEST: Clear to auscultation. No wheezes, rales, rhonchi. Normal effort and movement CAR: Rhythm:regular Murmur:no [place]:no JVP:no Pulses:normal radial and carotid ABD: non-distended, non-tender. No hepatosplenomegaly EXT: No clubbing, cyanosis, or edema Assessment/Plan: 1. Adrenal insufficiency (HCC) It is unclear if she was experiencing minor symptoms of adrenal insufficiency or just gener al fatigue from doing too much. Regardless, she is better with the extra dose of the predni sone. She does not have any focal symptoms that I think need work-up for infectious etiology. She is being compliant with her medications as always. We talked about signs and symptoms of adrenal insufficiency and situations in which adrenal insufficiency can manifest. All questions were addressed and answered. Over 15 minutes was spent [id number] with the patient of which more than 50% was in discu ssion and counseling documented in this enc ounter Plan of Treatment +--------+---------+ + + + | Date | Type | Specialty | Care Team | Description | +--------+---------+ + + + | 04/29/ | Office | Internal Medicine | Abrahan Samaniego MD | | | 2019 | Visit | | [address] [place] [address] | | | | | | [place] | | | | | | [id number] | | | | | | | | +--------+---------+ + + + | 07/25/ | Office | Cardiology | Renetta, | | | 2020 | Visit | | Kimberly, LUMBER STRAIGHTENED [address] | | | | | | [place], | | | | | | [place] [address] | | | | | | [phone] | | | | | | | | +--------+---------+ + + + | 09/03/ | Office | Endocrinology | Cheryl Zee MD | | | 2020 | Visit | | [address] [place] | | | | | | [address] [place] | | | | | | [address] | | | | | | | | +--------+---------+ + + + documented as of this encounter Visit Diagnoses + + | Diagnosis | + + | Adrenal insufficiency (HCC) - Primary Glucocorticoid deficiency | + + documented in this encounter"
--- OUTSIDE RECORDS SUMMARY | ~2020-01-04 | XMS | Encounter Summary ---
Demographics + + + | Address | [address] | | | [place] [address] | + + + | Home Phone | | + + + | Preferred Language | Unknown | + + + | Marital Status | | + + + | Nondenominational Affiliation | 1027 | + + + | Race | Unknown | + + + | Ethnic Group | Unknown | + + + Author + + + | Author | [facility] | | | and [place] | + + + | Organization | [facility] | | [...] [place], | | | | | [place] [address] | | + + + + + | Ryan Vogt | ECON | Unknown | | + + + + + | Rob Vogt | ECON | Unknown | | + + + + + Care Team Providers + +------+ + | Care Pharmacy Specialist Name | Role | Phone | + +------+ + | Abrahan Samaniego MD | PCP | | + +------+ + Encounter Details +--------+ + + + + | Date | Type | Department | Care Team | Description | +--------+ + + + + | 05/22/ | Imaging | [facility] | Provider, | | | 2019 | Exam | [facility] | [address] | | | | | IMAGING [address] | [address] | | | | | [place] | [place] [address] | | | | | [place] [address] | | | | | | [phone] | | | +--------+ + + + [...] [place] | | | | | | [address] | | | | | | | | +--------+---------+ + + + | 07/25/ | Office | Cardiology | Renetta, | | | 2020 | Visit | | [address] | | | | | | [place] | | | | | | [place] [address] | | | | | | [phone] | | | | | | | | +--------+---------+ + + + | 09/03/ | Office | Endocrinology | Cheryl Zee MD | | | 2020 | Visit | | [address] [place] | | | | | | [address] [place] | | | | | | [id number] | | | | | | | | +--------+---------+ + + + documented as of this encounter Procedures + +--------+ + + + | Procedure Name | Priori | Date/Time | Associated Diagnosis | Comments | | | ty | | | | + +--------+ + + + | LUIZ DIGITAL | Routin | 01/20/2018 | | Results for this | | SCREENING BILATERAL | e | 12:00 AM | | procedure are in the | | | | PDT | | results section. | + +--------+ + + + documented in this encounter Results LUIZ Digital Screening Bilateral (01/20/2018 12:00 AM PDT) + + | Specimen | + + | | + + + + + | Narrative | Performed At | + + + | External films for comparison only | [facility] | | | | | No results will be in the chart. | | + + + + +---------+ + + | Performing | Address | City/State/Zipcode | Phone Number | | Organization | | | | + +---------+ + + | [facility] | | | | + +---------+ + + documented in this encounter Visit Diagnoses Not on filedocumented in this encounter"
--- OUTSIDE RECORDS SUMMARY | ~2020-01-04 | XMS | Encounter Summary ---
Demographics + + + | Address | [address] | | | [place] [address] | + + + | Home Phone | | + + + | Preferred Language | Unknown | + + + | Marital Status | | + + + | Methodist Affiliation | 1027 | + + + | Race | Unknown | + + + | Ethnic Group | Unknown | + + + Author + + + | Author | [facility] | | | and [place] | + + + | Organization | [facility] | | [...] [place], | | | | | [place] [address] | | + + + + + | Ryan Vogt | ECON | Unknown | | + + + + + | Rob Vogt | ECON | Unknown | | + + + + + Care Team Providers + +------+ + | Care Surveillance Inspector Name | Role | Phone | + [...] + + | Closed | Specialty | Massage | Diagnoses | [facility], | HEALTH | | | Services | Therapist | Neck pain | Abrahan Cortez MD | [facility] | | | Required | | | [address] | | | | | | [address] | [address] | | | | | | [place], | [address] | | | | | | [place] [address] | [address] | | | | | | Phone: | [place], | | | | | | [phone] | [place] [address] | | | | | | Fax: | Phone: | | | | | | [phone] | [phone] | | | | | | | Fax: | | | | | | | [phone] | +--------+ + + + + + Reason for Visit + +--------+ + | Reason | Onset | Comments | | | Date | | + +--------+ + | Neck Pain | 06/12/ | | | | 2014 | | + +--------+ + Encounter Details +--------+ + + + + | Date | Type | Department | Care Team | Description | +--------+ + + + + | 06/12/ | Telephone | [facility] | Abrahan Samaniego MD | Neck Pain | | 2014 | | MEDICINE [address] [place] [address] | [address] [place] [address] | | | | | [place], | [place] | | | | | [place] [address] | [id number] | | | | | [phone] | | | +--------+ + + + [...] Telephone Encounter - Christina Wilson LPN - 06/12/2014 12:08 PM PSTPatient requesting refe rral to tracx for Massage therapy for a stiff neck x's 1 week- Scheduled patient with Dr. Samaniego for 06-21-14 but wants to start massage therapy as soon as possible. Referral qu eued for signature. do cumented in this encounter Plan of Treatment +--------+---------+ + + + | Date | Type | Specialty | Care Team | Description | +--------+---------+ + + + | 04/29/ | Office | Internal Medicine | Abrahan Samaneigo MD | | | 2019 | Visit | | [address] [place] [address] | | | | | | [place] | | | | | | [address] | | | | | | | | +--------+---------+ + + + | 07/25/ | Office | Cardiology | Renetta, | | | 2020 | Visit | | [address] | | | | | | [place] | | | | | | [place] [address] | | | | | | [phone] | | | | | | | [...] Ambulatory referral | Outpatient | Routin | Neck pain | Ordered: 06/12/2014 | | to Massage Therapy | Referral | e | | | + + +--------+ + + documented as of this encounter Visit Diagnoses + + | Diagnosis | + + | Neck pain - Primary Cervicalgia | + + documented in this encounter"
--- OUTSIDE RECORDS SUMMARY | ~2020-01-04 | XMS | Encounter Summary ---
Demographics + + + | Address | [address] | | | [place] [address] | + + + | Home Phone | | + + + | Preferred Language | Unknown | + + + | Marital Status | | + + + | Spiritism Affiliation | 1027 | + + + | Race | Unknown | + + + | Ethnic Group | Unknown | + + + Author + + + | Author | [facility] | | | and [place] | + + + | Organization | [facility] | | | [...] [place], | | | | | [place] [address] | | + + + + + | Ryan Vogt | ECON | Unknown | | + + + + + | Rob Vogt | ECON | Unknown | | + + + + + Care Team Providers + +------+ + | Care Boat Puller Name | Role | Phone | + +------+ + | Abrahan Samaniego MD | PCP | | + +------+ + Encounter Details +--------+ + + + + | Date | Type | Department | Care Team | Description | +--------+ + + + + | 01/02/ | Orders Only | [facility] | Provider, | | | 2019 | | SYSTEM GENERIC OP | [address] | | | | | [address] | [address] | | | | | [address] [place], [place] | [place] [address] | | | | | [address] | | | | | | [phone] | | | +--------+ + + + [...] [place] | | | | | | [address] | | | | | | | | +--------+---------+ + + + | 07/25/ | Office | Cardiology | Renetta, | | | 2020 | Visit | | [address] | | | | | | [place] | | | | | | [place] [address] | | | | | | [phone] | | | | | | | | +--------+---------+ + + + | 09/03/ | Office | Endocrinology | Cheryl Zee MD | | | 2020 | Visit | | [address] [address] | | | | | | [address] [place] | | | | | | [phone] | | | | | | | | +--------+---------+ + + + documented as of this encounter Visit Diagnoses Not on filedocumented in this encounter"
--- OUTSIDE RECORDS SUMMARY | ~2020-01-04 | XMS | Encounter Summary ---
Demographics + + + | Address | [address] | | | [place] [address] | + + + | Home Phone | | + + + | Preferred Language | Unknown | + + + | Marital Status | | + + + | Congregation Affiliation | 1027 | + + + | Race | Unknown | + + + | Ethnic Group | Unknown | + + + Author + + + | Author | [facility] | | | and [place] | + + + | Organization | [facility] | | [...] [place], | | | | | [place] [address] | | + + + + + | Ryan Vogt | ECON | Unknown | | + + + + + | Rob Vogt | ECON | Unknown | | + + + + + Care Team Providers + +------+ + | Care Sod Stripper Name | Role | Phone | + +------+ + | Abrahan Samaniego MD | PCP | | + +------+ + Reason for Visit + +--------+ + | Reason | Onset | Comments | | | Date | | + +--------+ + | Medication Refill | 12/12/ | | | | 2018 | | + +--------+ + Encounter Details +--------+--------+ + + + | Date | Type | Department | Care Team | Description | +--------+--------+ + + + | 12/12/ | Ref[facility] | [facility] | Cheryl Zee MD | Medication Refill | | 2018 | | [place] | [address] [place] | | | | | ENDOCRINOLOGY [address] | [address] [place] | | | | | [address] [place] [address] | [id number] | | | | | [place] | | | | | | [address] | | | | | | [phone] | | | +--------+--------+ + + + [...] this encounter Miscellaneous Notes Telephone Encounter - Saskia Ng, Can Striper - 12/12/2018 2:36 PM PDTFormatt ing of this note might be different from the original. Last visit 09/19/18 Next visit 12/21/18 Last refill 5 each x 2 10/10/18 Medication Requested Prescriptions Pending Prescriptions Disp Refills Somatropin (OMNITROPE) 5.8 MG SOLR 5 each 2 Sig: Inject 0.2 mg under the skin Daily. docu mented in this encounter Plan of Treatment +--------+---------+ + + + | Date | Type | Specialty | Care Team | Description | +--------+---------+ + + + | 04/29/ | Office | Internal Medicine | Abrahan Samaniego MD | | | 2019 | Visit | | [address] [facility] | | | | | | [place] | | | | | | [address] | | | | | | | | +--------+---------+ + + + | 07/25/ | Office | Cardiology | Renetta, | | | 2020 | Visit | | [address] | | | | | | [place] | | | | | | [place] [address] | | | | | | [phone] | | | | | | | | +--------+---------+ + + + | 09/03/ | Office | Endocrinology | Cheryl Zee MD | | | 2020 | Visit | | [address] | | | | | | [address] [place] | | | | | | [address] | | | | | | | | +--------+---------+ + + + documented as of this encounter Visit Diagnoses Not on filedocumented in this encounter"
--- OUTSIDE RECORDS SUMMARY | ~2020-01-04 | XMS | Encounter Summary ---
Demographics + + + | Address | [address] | | | [place] [address] | + + + | Home Phone | | + + + | Preferred Language | Unknown | + + + | Marital Status | | + + + | Hoahaoism Affiliation | 1027 | + + + | Race | Unknown | + + + | Ethnic Group | Unknown | + + + Author + + + | Author | [facility] | | | and [place] | + + + | Organization | [facility] | [...] [place], | | | | | [place] [address] | | + + + + + | Ryan Vogt | ECON | Unknown | | + + + + + | Rob Vogt | ECON | Unknown | | + + + + + Care Team Providers + +------+ + | Care Lard Bleacher Name | Role | Phone | + +------+ + PCP | Unavailable | + +------+ + Encounter Details +--------+ + + + + | Date | Type | Department | Care Team | Description | +--------+ + + + + | 02/14/ | Hospital | [facility] | Ifeanyi Romo, | | | 2007 | Encounter | MED [facility] | [address] | | | | | [address] | [place] | | | | | [place] | [address] | | | | | [address] | | | | | | [phone] | | | +--------+ + + + [...] [place] | | | | | | [address] | | | | | | | | +--------+---------+ + + + | 07/25/ | Office | Cardiology | Renetta | | | 2020 | Visit | | [address] | | | | | | [place], | | | | | | [place] [address] | | | | | | [phone] | | | | | | | | +--------+---------+ + + + | 09/03/ | Office | Endocrinology | Cheryl Zee MD | | | 2020 | Visit | | [address] | | | | | | [address] [place] | | | | | | [address] | | | | | | | | +--------+---------+ + + + documented as of this encounter Visit Diagnoses Not on filedocumented in this encounter"
--- OUTSIDE RECORDS SUMMARY | ~2020-01-04 | XMS | Encounter Summary ---
Demographics + + + | Address | [address] | | | [place] [address] | + + + | Home Phone | | + + + | Preferred Language | Unknown | + + + | Marital Status | | + + + | Jehovah'S Witness Affiliation | 1027 | + + + | Race | Unknown | + + + | Ethnic Group | Unknown | + + + Author + + + | Author | [facility] | | | and [place] | + + + | Organization | [facility] | | | and [...] [place], | | | | | [place] [address] | | + + + + + | Ryan Vogt | ECON | Unknown | | + + + + + | Rob Vogt | ECON | Unknown | | + + + + + Care Team Providers + +------+ + | Care Unemployment Insurance Hearing Officer Name | Role | Phone | + +------+ + | Abrahan Samaniego MD | PCP | | + +------+ + Encounter Details +--------+ + + + + | Date | Type | Department | Care Team | Description | +--------+ + + + + | 07/14/ | Hospital | [facility] | Staci Yu | Needle stick injury, | | 2016 | Encounter | [facility] | Bro Sun MD | initial encounter | | | | [address] [place] | [address] | | | | | [place] | [place] | | | | | [address] | [address] | | | | | [phone] | | | +--------+ + + + [...] tablet by | 90 | 2 | 10/01/19 | | | (LIPITOR) 10 mg | mouth NIGHTLY | tablet | | 16 | 7 | | tablet | | | | [...] tablet by | 90 | 3 | 10/16/19 | | | (SYNTHROID, | mouth every morning | tablet | | 16 | 7 | | LEVOTHROID) 100 mcg | (before breakfast). | | | | | | tablet | | | | | | + + + +---------+ + + | predniSONE | Take 1 tablet by | 90 | 3 | 02/13/20 | | | (DELTASONE) 5 mg | mouth Daily. | tablet | | 16 | 8 | | tablet | | [...] | 2020 | Visit | | [address] [facility] | | | | | | [place] | | | | | | [address] | | | | | | | | +--------+---------+ + + + | 07/25/ | Office | Cardiology | Renetta, | | | 2020 | Visit | | [address] | | | | | | [place], | | | | | | [place] [address] | | | | | | [phone] | | | | | | | | +--------+---------+ + + + | 09/03/ | Office | Endocrinology | Cheryl Zee MD | | | 2020 | Visit | | [address] | | | | | | [address] [place] | | | | | | [id number] | | | | | | | | +--------+---------+ + + + documented as of this encounter Procedures + +--------+ + + + | Procedure Name | Priori | Date/Time | Associated Diagnosis | Comments | | | ty | | | | + +--------+ + + + | HEPATITIS C RNA, | Routin | 07/14/2016 | Needle stick | Results for this | | QUANT, NAAT | e | 3:09 PM | injury, initial | procedure are in the | | | | PST | encounter | results section. | + +--------+ + + + | EXTRA LAVENDER TOP | Routin | 07/14/2016 | Needle stick | Results for this | | TUBE | e | 3:09 PM | injury, initial | procedure are in the | | | | PST | encounter | results section. | + +--------+ + + + documented in this encounter Results Extra Lavender Top Tube (07/14/2016 3:09 PM PST) + +-------+ + + + | Component | Value | Ref Range | Performed | Pathologist | | | | | At | Signature | + +-------+ + + + | Extra | Done | | [facility] | | | Lavender | | | [facility] | | | Top Tube | | [...] + + | [facility] | [address] | [place] | [phone] | | [facility] | | [address] | | | - LABORATORY | | | | + + + + + Hepatitis C RNA, Quant, NAAT (07/14/2016 3:09 PM PST) + + + + + + | Component | Value | Ref Range | Performed | Pathologist | | | | | At | Signature | + + + + + + | HCV Viral | Not Detected | NOTDET Log | [facility]FERENCE | | | Load, log10 | | IU/mL | [facility] | | + + + + + + | HCV Viral | See CommentsComment: Not | NOTDET IU/mL | REFERENCE | | | Load | DetectedReportable | | [facility] | | | | range HCV RNA 1.2 to 8.0 | | | | | | Log IU/mL (15 to | | | | | | 100,000,000IU/mL). | | | | | | This assay was performed | | | | | | using the FDA approved | | | | | | Lyle | | | | | | COBASAmpliPrep/PRECIOUS | | | | | | TaqMan HCV Test, v2.0. | | | | | | The PRECIOUS | | | | | | AmpliPrep/COBASTaqMan | | | | | | HCV Test, v2.0 is not | | | | | | intended for use as a | | | | | | screening test forthe | | | | | | presence of HCV in blood | | | | | | or blood | | | | | | products.Testing | | | | | | Performed: [facility], [address] | | | | | | [address], [place] | | | | | | [address] | | | | + + + + + + + + | Specimen | + + | Blood specimen | | (specimen) | + + + + + + + | Performing | Address | City/State/Zipcode | Phone Number | | Organization | | | | + + + + + | [facility] | [address] | [place] [address] | [phone] | + + + + + documented in this encounter Visit Diagnoses + + | Diagnosis | + + | Needle stick injury, initial encounter | + + documented in this encounter"
--- OUTSIDE RECORDS SUMMARY | ~2020-01-04 | XMS | Encounter Summary ---
Demographics + + + | Address | [address] | | | [place] [address] | + + + | Home Phone | | + + + | Preferred Language | Unknown | + + + | Marital Status | | + + + | Voodoo Affiliation | 1027 | + + + | Race | Unknown | + + + | Ethnic Group | Unknown | + + + Author + + + | Author | [facility] | | | and [...] [place], | | | | | [place] [address] | | + + + + + | Ryan Vogt | ECON | Unknown | | + + + + + | Rob Vogt | ECON | Unknown | | + + + + + Care Team Providers + +------+ + | Care Coutierier Name | Role | Phone | + +------+ + | Abrahan Samaniego MD | PCP | | + +------+ + Encounter Details +--------+ + + + + | Date | Type | Department | Care Team | Description | +--------+ + + + + | 01/26/ | Hospital | [facility] | Abrahan Samaniego MD | Left hand pain | | 2019 | Encounter | MED [facility] XRAY | [address] [facility] | | | | | [address] | [place] | | | | | [place] | [address] | | | | | [address] | | | | | | [phone] | | | +--------+ + + + [...] + +---------+ + + | aspirin 81 MG | Take 81 mg by mouth | | 0 | | | | tablet | Daily. | | | | 9 | + + + +---------+ + + | atorvaSTATin | Take 1 tablet by | 90 | 3 | 01/27/20 | | | (LIPITOR) 20 mg | mouth nightly. | tablet | | 19 | 0 | | tablet | | | | | | + + + +---------+ + + | levothyroxine | Take 1 tablet by | 90 | 4 | 10/06/19 | | | (SYNTHROID) 100 mcg | mouth every morning | tablet | | 19 | 9 | | tabletIndications: | (before breakfast). | | | | | | Secondary | | | | | | | hypothyroidism | | | | | | + + + +---------+ + + | Multiple | Take by mouth | | 0 | | | | Vitamins-Minerals | Daily. | | | | 9 | | (WOMENS MULTIVITAMIN | | | | | | | PLUS) TABS | | | | | | + + + +---------+ + + | nitroglycerin | Place 1 tablet under | 100 | 3 | 01/19/20 | | | (NITROSTAT) 0.4 mg | the tongue every 5 | tablet | | 19 | 9 | | SL | minutes as needed | | | | | | tabletIndications: | for Chest pain. | | | | | | Angina at rest (HCC) | | | | | | + + + +---------+ + + | OMNITROPE 5 | | | 0 | 01/18/20 | | | MG/1.5ML SOLN | | | | 19 | 9 | + + + +---------+ + + [...] for total | 90 | 4 | 09/20/19 | | | (DELTASONE) 1 mg | 6 mg daily | tablet | | 19 | 9 | | tabletIndications: | | | | | | | Secondary adrenal | | | | | | | insufficiency (HCC) | | | | | | + + + +---------+ + + | predniSONE | take 1 tablet by | 120 | 1 | 09/27/19 | | | (DELTASONE) 5 mg | mouth daily MOST | tablet | | 19 | 9 | | tablet | DAYS INCREASE TO 3 | | | | | | | tablets daily for 3 | | | | | | | days WHEN SICK | | | | | + + + +---------+ + + | Somatropin | Inject 0.2 mg under | 5 each | 2 | 12/13/19 | | | (OMNITROPE) 5.8 MG | the skin Daily. | | | 19 | 9 | | SOLR | | | | [...] | | | | | | [place] [address] | | | | | | [phone] | | | | | | | | +--------+---------+ + + + | 09/03/ | Office | Endocrinology | Cheryl Zee MD | | | 2020 | Visit | | [address] [place] | | | | | | [address] [place] | | | | | | [phone] | | | | | | | | +--------+---------+ + + + documented as of this encounter Procedures + +--------+ + + + | Procedure Name | Priori | Date/Time | Associated Diagnosis | Comments | | | ty | | | | + +--------+ + + + | XR HAND LEFT 2 VW | Routin | 01/26/2019 | Left hand pain | Results for this | | | e | 3:43 PM | | procedure are in the | | | | PDT | | results section. | + +--------+ + + + documented in this encounter Results XR Hand Left 2 Vw (01/26/2019 3:43 PM PDT) + + | Specimen | + + | | + + + + + | Narrative | Performed At | + + + | XR HAND LEFT 2 VW 01/26/2019 3:43 PM HISTORY: left hand pain. | [facility] | | COMPARISON: None. FINDINGS: There are no acute osseous | | | abnormalities. Mild scattered degenerative changes are seen. Bone | | | mineralization is normal. Soft tissue structures are unremarkable. | | | IMPRESSION - No acute osseous findings. Dictated and Signed by: | | | Raghu Truong MD Electronically signed: 01/26/2019 6:33 PM | | + + + + + | Procedure Note | + + | Vishnu, Rad Results In - 01/26/2019 6:36 PM PDT XR HAND LEFT 2 VW 01/26/2019 3:43 PM | | | | HISTORY: left hand pain. | | | | COMPARISON: None. | | | | FINDINGS: | | There are no acute osseous abnormalities. Mild scattered degenerative changes | | are seen. Bone mineralization is normal. Soft tissue structures are | | unremarkable. | | | | IMPRESSION - | | No acute osseous findings. | | | | Dictated and Signed by: Raghu Truong MD | | Electronically signed: 01/26/2019 6:33 PM | + + + +---------+ + + | Performing | Address | City/State/Zipcode | Phone Number | | Organization | | | | + +---------+ + + | [facility] | | | | + +---------+ + + documented in this encounter Visit Diagnoses + + | Diagnosis | + + | Left hand pain Pain in limb | + + documented in this encounter"
--- OUTSIDE RECORDS SUMMARY | ~2020-01-04 | XMS | Encounter Summary ---
Demographics + + + | Address | [address] | | | [place] [address] | + + + | Home Phone | | + + + | Preferred Language | Unknown | + + + | Marital Status | | + + + | Voodoo Affiliation | 1027 | + + + | Race | Unknown | + + + | Ethnic Group | Unknown | + + + Author + + + | Author | [facility] | | | and [place] | + + + | Organization | [facility] | | | [...] [place], | | | | | [place] [address] | | + + + + + | Ryan Vogt | ECON | Unknown | | + + + + + | Rob Vogt | ECON | Unknown | | + + + + + Care Team Providers + +------+ + | Care Offset Press Operator Apprentice Name | Role | Phone | + +------+ + | Abrahan Samaniego MD | PCP | | + +------+ + Reason for Visit + + + | Reason | Comments | + + + | Therapy Daily | | | Treatment | | + + + Evaluate & Treat (Routine) +--------+ + + + + + | Status | Reason | Specialty | Diagnoses / | Referred By | Referred To | | | | | Procedures | Contact | Contact | +--------+ + + + + + | Closed | Specialty | Physical | Diagnoses | [place], | [facility] | | | Services | Therapy / | Cervicalgia | Abrahan Cortez MD | Pt Op [address] | | | Required | Rehabilitatio | [address] | [address] | [place] | | | | n | (ICD-9-CM) - | [address]RE[address] | [place], | | | | | Cervicalgia | [place], | [place] [address] | | | | | Procedures | [place] [address] | Phone: | | | | | pt pako | Phone: | [phone] | | | | | | [phone] | Fax: | | | | | | Fax: | [phone] | | | | | | [phone] | | +--------+ + + + + + Encounter Details +--------+---------+ + + + | Date | Type | Department | Care Team | Description | +--------+---------+ + + + | 07/18/ | Office | [facility] | Abrahan Samaniego MD | Impaired mobility | | 2015 | Visit | MED CTR THERAPY PT | [address] [facility] | (Primary Dx); | | | | OP [address] | [place], [place] | Cervicalgia; Other | | | | [place], [place] | [address] | congenital anomaly | | | | [address] | | of spine | | | | [phone] | Matthew Bedoya | | | | | | G, PT [address] | | | | | [address] [place] | | | | | [...] + + documented as of this encounter Progress Notes Matthew Bedoya, PT - 07/18/2014 3:20 PM PST [facility] CTR THERAPY PT OP [address] [place] [address] Physical Therapy Daily Treatment Note Date: 07/18/2014 Patient Information Patient Name: Oliva Vogt Date of : 1950 Age: 64 y.o. Encounter Diagnoses Code Name Primary? 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 Pain in the neck with rotation to the right. Pain Assessment Pain Scale Used: NUMERIC Pain Rating Pre Assessment: 7 Location: neck; up to 7/10 with rotation to the right Objective: Education: went over sitting posture at work. Manual Treatment: trigger point release to the right side upper traps, stretching to the sa me. Grades 2,3 unilateral joint mobs at right side cervical facets, manual cervical traction. Instructed patient in self mobs for the facets on the right side. Cervical ROM with rotation and flexion/extension. Assessment: Not as much restriction or any sharp pain with right rotation after the joint mobs to cervi amanda facets on the right. Plan: Joint mobs as needed, exercises for postural strengthening. Manual traction. Electronically signed by: Matthew Bedoya, PT, 07/18/2014 15:53 Patient Name: Oliva Vogt/: 1950/ documented in thi s encounter Plan of Treatment +--------+---------+ + + + | Date | Type | Specialty | Care Team | Description | +--------+---------+ + + + | 04/29/ | Office | Internal Medicine | Abrahan Samaniego MD | | | 2019 | Visit | | [address] [place] [address] | | | | | | [place] | | | | | | [address] | | | | | | | | +--------+---------+ + + + | 07/25/ | Office | Cardiology | Renetta, | | | 2020 | Visit | | [address] [address] | | | | | | [place] | | | | | | [place] [address] | | | | | | [phone] | | | | | | | | +--------+---------+ + + + | 09/03/ | Office | Endocrinology | Cheryl Zee MD | | | 2020 | Visit | | [address] [place] | | | | | | [address] [place] | | | | | | [address] | | | | | | | | +--------+---------+ + + + + + +--------+ + + | Name | Type | Priori | Associated Diagnoses | Order Schedule | | | | ty | | | + + +--------+ + + | * [facility] | Outpatient | Routin | Cervicalgia | Ordered: 06/21/2014 | | Therapy - AMB | Referral | e | | | | Referral | | | | | + + +--------+ + + documented as of this encounter Visit Diagnoses + + | Diagnosis | + + | Impaired mobility - Primary Other ill-defined conditions | + + | Cervicalgia | + + | Other congenital anomaly of spine | + + documented in this encounter"
--- OUTSIDE RECORDS SUMMARY | ~2020-01-04 | XMS | Encounter Summary ---
Demographics + + + | Address | [address] | | | [place] [address] | + + + | Home Phone | | + + + | Preferred Language | Unknown | + + + | Marital Status | | + + + | Yazidism Affiliation | 1027 | + + + | Race | Unknown | + + + | Ethnic Group | Unknown | + + + Author + + + | Author | [facility] | | | and [place] | + + + | Organization | [facility] | | | [...] [place], | | | | | [place] [address] | | + + + + + | Ryan Vogt | ECON | Unknown | | + + + + + | Rob Vogt | ECON | Unknown | | + + + + + Care Team Providers + +------+ + | Care Pie Bottomer Name | Role | Phone | + +------+ + | Abrahan Samaniego MD | PCP | | + +------+ + Reason for Visit + +--------+ + | Reason | Onset | Comments | | | Date | | + +--------+ + | Medication Related | 02/13/ | | | | 2018 | | + +--------+ + Encounter Details +--------+ + + + + | Date | Type | Department | Care Team | Description | +--------+ + + + + | 02/13/ | Telephone | [facility] | Cheryl Zee MD | Medication Related | | 2018 | | [facility] [place] | [address] [place] | | | | | ENDOCRINOLOGY [address] | [address] [place] | | | | | [address] [place] [address] | [address] | | | | | [place] | | | | | | [address] | | | | | | [phone] | | | +--------+ + + + [...] this encounter Miscellaneous Notes Telephone Encounter - Oliva Son, Reducing Salon Attendant - 02/13/2019 1:47 PM PDTCalled je ssica and advised that cartridges are what patient needs. Nothing further at this time.Elect ronically signed by Oliva Son, Reducing Salon Attendant at 02/13/2019 1:51 PM PDTTelephone En counter - Amanda Gupta - 02/13/2019 12:13 PM PDTJessica with pharmacy called to [facility] OMNITROPE 5 MG/1.5ML SOLN They received request for viles, patient usually gets cartridges. She is asking if they can keep filling cartridges. Please call. Electronically signed by Amanda Gupta at 2018 12:14 PM PDTdocumented in this encounter Plan of Treatment +--------+---------+ + + + | Date | Type | Specialty | Care Team | Description | +--------+---------+ + + + | 04/29/ | Office | Internal Medicine | Abrahan Samaniego MD | | | 2019 | Visit | | [address] [facility] | | | | | | [place] | | | | | | [address] | | | | | | | | +--------+---------+ + + + | 07/25/ | Office | Cardiology | Renetta, | | | 2020 | Visit | | [address] | | | | | | [place] | | | | | | [place] [address] | | | | | | [phone] | | | | | | | | +--------+---------+ + + + | 09/03/ | Office | Endocrinology | Cheryl Zee MD | | | 2020 | Visit | | [address] | | | | | | [address] [place] | | | | | | [id number] | | | | | | | | +--------+---------+ + + + documented as of this encounter Visit Diagnoses Not on filedocumented in this encounter"
--- OUTSIDE RECORDS SUMMARY | ~2020-01-04 | XMS | Encounter Summary ---
Demographics + + + | Address | [address] | | | [place] [address] | + + + | Home Phone | | + + + | Preferred Language | Unknown | + + + | Marital Status | | + + + | Scientologist Affiliation | 1027 | + + + | Race | Unknown | + + + | Ethnic Group | Unknown | + + + Author + + + | Author | [facility] | | | and [place] | + + + | Organization | [facility] | | [...] [place], | | | | | [place] [address] | | + + + + + | Ryan Vogt | ECON | Unknown | | + + + + + | Rob Vogt | ECON | Unknown | | + + + + + Care Team Providers + +------+ + | Care Liner Machine Operator Name | Role | Phone | + +------+ + PCP | Unavailable | + +------+ + Encounter Details +--------+ + + + + | Date | Type | Department | Care Team | Description | +--------+ + + + + | 08/13/ | Hospital | [facility] | Ifeanyi Romo, | | | 2008 | Encounter | MED CTR LABORATORY | [address] | | | | | [address] | [place] | | | | | [place] | [address] | | | | | [address] | | | | | | [phone] | | | +--------+ + + + [...] [place] | | | | | | [address] | | | | | | | | +--------+---------+ + + + | 07/25/ | Office | Cardiology | Renetta | | | 2020 | Visit | | [address] [facility] [address] | | | | | | [place], | | | | | | [place] [address] | | | | | | [phone] | | | | | | | | +--------+---------+ + + + | 09/03/ | Office | Endocrinology | Cheryl Zee MD | | | 2020 | Visit | | [address] | | | | | | [address] [place] | | | | | | [address] | | | | | | | | +--------+---------+ + + + documented as of this encounter Visit Diagnoses Not on filedocumented in this encounter"
--- OUTSIDE RECORDS SUMMARY | ~2020-01-04 | XMS | Encounter Summary ---
Demographics + + + | Address | [address] | | | [place] [address] | + + + | Home Phone | | + + + | Preferred Language | Unknown | + + + | Marital Status | | + + + | Shinto Affiliation | 1027 | + + + | Race | Unknown | + + + | Ethnic Group | Unknown | + + + Author + + + | Author | [facility] | | | and [place] | + + + | Organization | [facility] | | | [...] [place], | | | | | [place] [address] | | + + + + + | Ryan Vogt | ECON | Unknown | | + + + + + | Rob Vogt | ECON | Unknown | | + + + + + Care Team Providers + +------+ + | Care Community Service Director Name | Role | Phone | + +------+ + | Abrahan Samaniego MD | PCP | | + +------+ + Encounter Details +--------+ + + + + | Date | Type | Department | Care Team | Description | +--------+ + + + + | 04/18/ | Hospital | [facility] | Cheryl Zee MD | | | 2012 | Encounter | MED CTR LABORATORY | [address] [facility] [address] [facility] | | | | | [address] | [address] [place], [place] | | | | | [place] | [id number] | | | | | [address] | | | | | | [phone] | | | +--------+ + + + [...] [place] | | | | | | [address] | | | | | | | | +--------+---------+ + + + | 07/25/ | Office | Cardiology | Renetta, | | | 2020 | Visit | | [address] | | | | | | [place] | | | | | | [place] [address] | | | | | | [phone] | | | | | | | | +--------+---------+ + + + | 09/03/ | Office | Endocrinology | Chreyl Zee MD | | | 2020 | Visit | | [address] | | | | | | [address] [place] | | | | | | [address] | | | | | | | | +--------+---------+ + + + documented as of this encounter Visit Diagnoses Not on filedocumented in this encounter"
--- OUTSIDE RECORDS SUMMARY | ~2020-01-04 | XMS | Encounter Summary ---
Demographics + + + | Address | [address] | | | [place] [address] | + + + | Home Phone | | + + + | Preferred Language | Unknown | + + + | Marital Status | | + + + | Mu-Ism Affiliation | 1027 | + + + | Race | Unknown | + + + | Ethnic Group | Unknown | + + + Author + + + | Author | [facility] | | | and [place] | + + + | Organization | [facility] | | | [...] [place], | | | | | [place] [address] | | + + + + + | Ryan Vogt | ECON | Unknown | | + + + + + | Rob Vogt | ECON | Unknown | | + + + + + Care Team Providers + +------+ + | Care Dry Cleaning Supervisor Name | Role | Phone | + +------+ + | Abrahan Samaniego MD | PCP | | + +------+ + Encounter Details +--------+ + + + + | Date | Type | Department | Care Team | Description | +--------+ + + + + | 06/21/ | [facility] | [facility] | Abrahan Samaniego MD | Cervicalgia | | 2015 | Encounter | MED CTR [facility] XRAY | [address] [facility] | | | | | [address] [place] | [place] | | | | | [place] | [address] | | | | | [address] | | | | | | [phone] | | | +--------+ + + + [...] | 2019 | Visit | | [address] [facility] | | | | | | [place] | | | | | | [address] | | | | | | | | +--------+---------+ + + + | 07/25/ | Office | Cardiology | Renetta, | | | 2020 | Visit | | PARKER Harris [address] | | | | | | [place], | | | | | | [place] [address] | | | | | | [phone] | | | | | | | | +--------+---------+ + + + | 09/03/ | Office | Endocrinology | Cheryl Zee MD | | | 2020 | Visit | | [address] | | | | | | [address] [place] | | | | | | [phone] | | | | | | | | +--------+---------+ + + + documented as of this encounter Procedures + +--------+ + + + | Procedure Name | Priori | Date/Time | Associated Diagnosis | Comments | | | ty | | | | + +--------+ + + + | XR CERVICAL SPINE 4 | Routin | 06/21/2014 | Cervicalgia | Results for this | | OR 5 VWS | e | 4:34 PM | | procedure are in the | | | | PST | | results section. | + +--------+ + + + documented in this encounter Results XR Cervical Spine 4 or 5 Vws (06/21/2014 4:34 PM PST) + + | Specimen | + + | | + + + + + | Narrative | Performed At | + + + | XR CERVICAL SPINE 4 OR 5 VWS. 06/21/2014 4:34 PM HISTORY: | MISCELANIOUS | | cervicalgia . COMPARISON: 12/23/2007 FINDINGS: Vertebral | LAB | | body heights and alignment are maintained. Disc heights are | | | maintained. There is uncinate process spurring predominantly in the | | | mid cervical spine. Facet degenerative hypertrophy seen throughout | | | the spine, greatest in the mid cervical spine. Mild osseous neural | | | foraminal narrowing seen on the left at the level of C2-3. The | | | lateral masses of C1 and C2 are well aligned. No evidence of | | | fracture of the odontoid. Craniocervical junction alignment is | | | maintained. Prevertebral and paraspinal soft tissues are | | | unremarkable. IMPRESSION - Spondylotic changes described | | | above, without evidence of fracture or subluxation. Dictated and | | | Signed by: Reji Kelley MD Electronically signed: 06/22/2014 | | | 2:16 PM | | + + + + + | Procedure Note | + + | Vishnu, Rad Results In - 06/22/2014 2:19 PM PST XR CERVICAL SPINE 4 OR 5 VWS. | | 06/21/2014 4:34 PMHISTORY: cervicalgia . COMPARISON: 12/23/2007FINDINGS:Vertebral body | | heights and alignment are maintained. Disc heights aremaintained. There is uncinate | | process spurring predominantly in the midcervical spine. Facet degenerative hypertrophy | | seen throughout the spine,greatest in the mid cervical spine. Mild osseous neural | | foraminal narrowingseen on the left at the level of C2-3. The lateral masses of C1 and | | C2 are wellaligned. No evidence of fracture of the odontoid. Craniocervical | | junctionalignment is maintained. Prevertebral and paraspinal soft tissues | | areunremarkable.IMPRESSION -Spondylotic changes described above, without evidence of | | fracture orsubluxation.Dictated and Signed by: Reji Kelley MD Electronically | | signed: 06/22/2014 2:16 PM | |seen on the left at the level of C2-3. The lateral masses of C1 and C2 are well | |aligned. No evidence of fracture of the odontoid. Craniocervical junction | |alignment is maintained. Prevertebral and paraspinal soft tissues are | |unremarkable. | | | | | |IMPRESSION - | |Spondylotic changes described above, without evidence of fracture or | |subluxation. | | | |Dictated and Signed by: Reji Kelley MD | | Electronically signed: 06/22/2014 2:16 PM | + + + +---------+ + + | Performing | Address | City/State/Zipcode | Phone Number | | Organization | | | | + +---------+ + + | [facility] | | | [phone] | + +---------+ + + | [facility] | | | [phone] | + +---------+ + + documented in this encounter Visit Diagnoses + + | Diagnosis | + + | Cervicalgia | + + documented in this encounter"
--- OUTSIDE RECORDS SUMMARY | ~2020-01-04 | XMS | Encounter Summary ---
Demographics + + + | Address | [address] | | | [place] [address] | + + + | Home Phone | | + + + | Preferred Language | Unknown | + + + | Marital Status | | + + + | Taoism Affiliation | 1027 | + + + | Race | Unknown | + + + | Ethnic Group | Unknown | + + + Author + + + | Author | [facility] | | | and [place] | + + + | Organization | [facility] | | [...] [place], | | | | | [place] [address] | | + + + + + | Ryan Vogt | ECON | Unknown | | + + + + + | Rob Vogt | ECON | Unknown | | + + + + + Care Team Providers + +------+ + | Care Body Work Auto Trimmer Name | Role | Phone | + +------+ + | Abrahan Samaniego MD | PCP | | + +------+ + Encounter Details +--------+ + + + + | Date | Type | Department | Care Team | Description | +--------+ + + + + | 05/07/ | Hospital | [facility] | | | | 2010 | Encounter | MED CTR XRAY [address] | | | | | | [address] | | | | | | [place] [address] | | | | | | [phone] | | | +--------+ + + + [...] [place] | | | | | | [id number] | | | | | | | | +--------+---------+ + + + | 07/25/ | Office | Cardiology | Renetta, | | | 2020 | Visit | | PARKER [facility] [address] | | | | | | [place] | | | | | | [place] [address] | | | | | | [phone] | | | | | | | [...] | + +--------+ + + + | VAS CAROTID DUPLEX | | 05/07/2011 | | Results for this | | BILATERAL | | 10:08 AM | | procedure are in the | | | | PST | | results section. | + +--------+ + + + | NM BONE SCAN WHOLE | | 05/07/2011 | | Results for this | | BODY | | 10:08 AM | | procedure are in the | | | | PST | | results section. | + +--------+ + + + documented in this encounter Results NM Bone Scan Whole Body (05/07/2011 10:08 AM PST) + + | Specimen | + + | | + + + + + | Narrative | Performed At | + + + | [facility] Diagnostic Imaging Department | [facility] | | [address], [facility] | [facility] | | WHOLE BODY NUCLEAR MEDICINE BONE | DIAG IMG | | SCAN 05/07/2011 CLINICAL HISTORY: CALVARIAL LESION ON MR. | | | TECHNIQUE: Whole body bone imaging was performed approximately | | | three hours after the intravenous administration of 27 mCi Tc-99m | | | HDP. FINDINGS: There is low level abnormal uptake in the right | | | frontal bone in the region of the irregular calvarial lesion. | | | There is focal elevated bone tracer uptake at the medial | | | compartment of the right knee involving the tibial plateau. This | | | is probably post traumatic or degenerative in etiology. | | | Periarticular uptake at the ankles and tarsal regions bilaterally, and | | | at the sternoclavicular joints and shoulders are all likely | | | degenerative. IMPRESSION: 1. ELEVATED BONE TRACER UPTAKE IN | | | THE RIGHT FRONTAL REGION CORRELATING WITH THE ABNORMAL CALVARIAL | | | LESION SEEN ON MRI. COMMENT: ELEVATED BONE TRACER UPTAKE | | | CONCORDANT WITH THE SITE OF INNER TABLE DESTRUCTION SEEN ON THE MRI | | | IS INDICATIVE OF AN AGGRESSIVE LESION. THIS COULD BE INFECTIOUS OR | | | NEOPLASTIC IN ETIOLOGY, OR COULD REPRESENT AN ISOLATED LYTIC PHASE | | | LESION ASSOCIATED WITH PAGET'S DISEASE OF BONE. FURTHER PREOPERATIVE | | | ASSESSMENT IS WARRANTED. CONSIDER NONCONTRAST CT OF THE HEAD WITH | | | BONE WINDOWS TO ASSESS THE LESION MARGINS AND INTERNAL ARCHITECTURE. | | | THIS MAY HELP NARROW THE DIFFERENTIAL DIAGNOSIS. 2. | | | NEGATIVE FOR WIDESPREAD BONY METASTATIC DISEASE. 3. POST | | | TRAUMATIC OR POST DEGENERATIVE CHANGES OF THE RIGHT KNEE, ANKLE JOINTS | | | , SHOULDERS AND STERNOCLAVICULAR JOINTS. Dictated | | | Date/Time: 05/07/2011 14:28 Transcribed Date/Time: 05/07/2011 | | | 15:29 Community Midwife: <Electronically Signed by Juan Mullen | | | MD Domonique> 05/08/11 0912 | | + + + + + | Procedure Note | + + | Vishnu, Rad Conversion - 07/14/2013 4:19 PM [facility] | | Diagnostic Imaging Department | | [address] [facility] | | | | | | | | WHOLE BODY NUCLEAR MEDICINE BONE SCAN 05/07/2011 | | | | CLINICAL HISTORY: CALVARIAL LESION ON MR. | | | | TECHNIQUE: Whole body bone imaging was performed approximately three hours | | after the intravenous administration of 27 mCi Tc-99m HDP. | | | | FINDINGS: There is low level abnormal uptake in the right frontal bone in the | | region of the irregular calvarial lesion. There is focal elevated bone tracer | | uptake at the medial compartment of the right knee involving the tibial | | plateau. This is probably post traumatic or degenerative in etiology. | | Periarticular uptake at the ankles and tarsal regions bilaterally, and at the | | sternoclavicular joints and shoulders are all likely degenerative. | | | | IMPRESSION: | | 1. ELEVATED BONE TRACER UPTAKE IN THE RIGHT FRONTAL REGION CORRELATING WITH | | THE ABNORMAL CALVARIAL LESION SEEN ON MRI. | | | | COMMENT: ELEVATED BONE TRACER UPTAKE CONCORDANT WITH THE SITE OF INNER TABLE | | DESTRUCTION SEEN ON THE MRI IS INDICATIVE OF AN AGGRESSIVE LESION. THIS COULD | | BE INFECTIOUS OR NEOPLASTIC IN ETIOLOGY, OR COULD REPRESENT AN ISOLATED LYTIC | | PHASE LESION ASSOCIATED WITH PAGET'S DISEASE OF BONE. FURTHER PREOPERATIVE | | ASSESSMENT IS WARRANTED. CONSIDER NONCONTRAST CT OF THE HEAD WITH BONE WINDOWS | | TO ASSESS THE LESION MARGINS AND INTERNAL ARCHITECTURE. THIS MAY HELP NARROW | | THE DIFFERENTIAL DIAGNOSIS. | | | | 2. NEGATIVE FOR WIDESPREAD BONY METASTATIC DISEASE. | | | | 3. POST TRAUMATIC OR POST DEGENERATIVE CHANGES OF THE RIGHT KNEE, ANKLE JOINTS | | , SHOULDERS AND STERNOCLAVICULAR JOINTS. | | | | Dictated Date/Time: 05/07/2011 14:28 | | Transcribed Date/Time: 05/07/2011 15:29 | | Community Midwife: | | <Electronically Signed by Juan Youssef MD> 05/08/11 0912 | + + + +---------+ + + | Performing | Address | City/State/Zipcode | Phone Number | | Organization | | | | + +---------+ + + | [place] | | | | | [facility] | | | | + +---------+ + + VAS Carotid Duplex Bilateral (05/07/2011 10:08 AM PST) + + | Specimen | + + | | + + + + + | Narrative | Performed At | + + + | [facility] Diagnostic Imaging Department | [facility] | | [address] [facility] | [facility] | | | DIAG IMG | | CAROTID DUPLEX ULTRASOUND [facility] | | | [facility] IMAGING #: | | | STRATEGY ANALYST: TD REASON FOR EXAM: HYPERLIPEDEMIA, HYPOPITUITARY | | | | | | RIGHT Peak Systolic End Diastolic Ratio Distal PSV | | | Velocity Velocity CCA | | | .70 m/s .24 m/s BULB | | | .64 m/s .20 m/s .91 ECA | | | .82 m/s .21 m/s 1.1 ICA | | | .70 m/s .30 m/s 1.0 | | | LEFT Peak Systolic End Diastolic Ratio Distal PSV | | | Velocity Velocity CCA | | | .82 m/s .30 m/s BULB | | | .80 m/s .25 m/s .97 ECA | | | .79 m/s .17 m/s .96 ICA | | | .92 m/s .28 m/s 1.1 | | | | | | | | | | | | BILATERAL CAROTID DUPLEX ULTRASOUND, 05/07/2011 CLINICAL HISTORY: | | | CAROTID BRUIT. FINDINGS: There is no significant | | | atherosclerotic plaque within the right or left parotid arteries. | | | Duplex scanning shows normal waveform with no flow acceleration, | | | spectral broadening or luminal narrowing of the vessel. Vertebrals | | | demonstrate antegrade flow. IMPRESSION: 1. NEGATIVE FOR | | | SIGNIFICANT ATHEROSCLEROTIC VASCULAR DISEASE OF THE LEFT OR RIGHT | | | CAROTID ARTERIES. Dictated Date/Time: 05/07/2011 14:29 | | | Transcribed Date/Time: 05/07/2011 15:26 Community Midwife: | | | <Electronically Signed by Juan Youssef MD> 05/08/11 0930 | | + + + + + | Procedure Note | + + | Vishnu, Rad Conversion - 07/14/2013 4:19 PM [facility] | | Diagnostic Imaging Department | | [address] [facility] | | | | | | | | | | CAROTID DUPLEX ULTRASOUND | | [facility] | | | | IMAGING #: STRATEGY ANALYST: TD | | REASON FOR EXAM: HYPERLIPEDEMIA, HYPOPITUITARY | | | | RIGHT Peak Systolic End Diastolic Ratio Distal PSV | | Velocity Velocity | | | | CCA .70 m/s .24 m/s | | BULB .64 m/s .20 m/s .91 | | ECA .82 m/s .21 m/s 1.1 | | ICA .70 m/s .30 m/s 1.0 | | | | | | | | LEFT Peak Systolic End Diastolic Ratio Distal PSV | | Velocity Velocity | | | | CCA .82 m/s .30 m/s | | BULB .80 m/s .25 m/s .97 | | ECA .79 m/s .17 m/s .96 | | ICA .92 m/s .28 m/s 1.1 | | | | | | | | | | BILATERAL CAROTID DUPLEX ULTRASOUND, 05/07/2011 | | | | CLINICAL HISTORY: CAROTID BRUIT. | | | | FINDINGS: There is no significant atherosclerotic plaque within the right or | | left parotid arteries. Duplex scanning shows normal waveform with no flow | | acceleration, spectral broadening or luminal narrowing of the vessel. | | Vertebrals demonstrate antegrade flow. | | | | IMPRESSION: | | 1. NEGATIVE FOR SIGNIFICANT ATHEROSCLEROTIC VASCULAR DISEASE OF THE LEFT OR | | RIGHT CAROTID ARTERIES. | | | | Dictated Date/Time: 05/07/2011 14:29 | | Transcribed Date/Time: 05/07/2011 15:26 | | Community Midwife: DENNY | | <Electronically Signed by Juan Youssef MD> 05/08/11 1239 | + + + +---------+ + + | Performing | Address | City/State/Zipcode | Phone Number | | Organization | | | | + +---------+ + + | [place] | | | | | [place] [facility] | | | | + +---------+ + + documented in this encounter Visit Diagnoses Not on filedocumented in this encounter"
--- OUTSIDE RECORDS SUMMARY | ~2020-01-04 | XMS | Encounter Summary ---
Demographics + + + | Address | [address] | | | [place] [address] | + + + | Home Phone | | + + + | Preferred Language | Unknown | + + + | Marital Status | | + + + | Uatsdin Affiliation | 1027 | + + + | Race | Unknown | + + + | Ethnic Group | Unknown | + + + Author + + + | Author | [facility] | | | and [place] | + + + | Organization | [facility] | | [...] [place], | | | | | [place] [address] | | + + + + + | Ryan Vogt | ECON | Unknown | | + + + + + | Rob Vogt | ECON | Unknown | | + + + + + Care Team Providers + +------+ + | Care Bullet Casting Operator Name | Role | Phone | + +------+ + | Abrahan Samaniego MD | PCP | | + +------+ + Reason for Visit + +--------+ + | Reason | Onset | Comments | | | Date | | + +--------+ + | Results, Imaging | 07/10/ | | | | 2015 | | + +--------+ + Encounter Details +--------+ + + + + | Date | Type | Department | Care Team | Description | +--------+ + + + + | 07/10/ | Telephone | [facility] | Abrahan Samaniego MD | Results, Imaging | | 2015 | | [address] | [address] [facility] | | | | | [place], | [place] | | | | | [place] [address] | [phone] | | | | | [phone] | | | +--------+ + + + [...] this encounter Miscellaneous Notes Telephone Encounter - Nini Martinez - 09/17/2015 11:10 AM PDTPatient called office back to return call, vi can be reached at [phone] signed by Nini story at 09/17/2015 11:10 AM PDTTelephone Encounter - Christina Wilson LPN - 07/10/2015 1:20 P M PSTLeft message for Vi to call back- reason for call has to do with medications - see husbands chart. TTelephone Encounter - Gauri Schuler - 07/10/2015 11:04 AM PSTContact/Caller: Vi Contact Number: [phone] Provider/Nurse: nurse Reason for Call: Patient advised she is returning nurses call for results. Last Appointment: 06-27-2015 Next Appointment: NONE documented in this enco unter Plan of Treatment +--------+---------+ + + + | Date | Type | Specialty | Care Team | Description | +--------+---------+ + + + | 11/23/ | Office | Internal Medicine | Abrahan Samaniego MD | | | 2019 | Visit | | [address] [place] | | | | | | [place] | | | | | | [address] | | | | | | | | +--------+---------+ + + + | 07/25/ | Office | Cardiology | Ren[place], | | | 2020 | Visit | | PARKER Harris [address] | | | | | | [place] | | | | | | [place] [address] | | | | | | [phone] | | | | | | | | +--------+---------+ + + + | 09/03/ | Office | Endocrinology | Cheryl Zee MD | | | 2020 | Visit | | [address] [place] | | | | | | [address] [place] | | | | | | [address] | | | | | | | | +--------+---------+ + + + documented as of this encounter Visit Diagnoses Not on filedocumented in this encounter"
--- OUTSIDE RECORDS SUMMARY | ~2020-01-04 | XMS | Encounter Summary ---
Demographics + + + | Address | [address] | | | [place] [address] | + + + | Home Phone | | + + + | Preferred Language | Unknown | + + + | Marital Status | | + + + | Yazidism Affiliation | 1027 | + + + | Race | Unknown | + + + | Ethnic Group | Unknown | + + + Author + + + | Author | [facility] | | | and [place] | + + + | Organization | [facility] | | | [...] [place], | | | | | [place] [address] | | + + + + + | Ryan Vogt | ECON | Unknown | | + + + + + | Rob Vogt | ECON | Unknown | | + + + + + Care Team Providers + +------+ + | Care Project Manager Name | Role | Phone | + +------+ + | Abrahan Samaniego MD | PCP | | + +------+ + Reason for Visit + +--------+ + | Reason | Onset | Comments | | | Date | | + +--------+ + | Ankle Swelling | 10/01/ | | | | 2017 | | + +--------+ + Encounter Details +--------+ + + + + | Date | Type | Department | Care Team | Description | +--------+ + + + + | 10/01/ | Telephone | [facility] | Abrahan Samaniego MD | Ankle Swelling | | 2017 | | [address] | [address] [place] [address] | | | | | [place], | [place] | | | | | [place] [address] | [address] | | | | | [phone] | | | +--------+ + + + [...] Notes Telephone Encounter - Harry Mark - 10/01/2017 12:21 PM PDTSpoke with patient with new appointment date and time.Electronically signed by Harry Mark at 10/01 12:31 PM PDTTelephone Encounter - Christina Wilson LPN - 10/01/2017 12:01 PM PDTPlease schedule for 10-07-17 @ 3:45 (30 min) and put on cancellation list (need to notify patient)E lectronically signed by Christina Wilson LPN at 10/01/2017 12:02 PM PDTTelephone Encounter - Xi Leahy - 10/01/2017 11:55 AM PDTLaura stated she is still having swelling in both an kles she stated she can't tell if it is moving up her legs or not. Definite swelling in her ankles and has been ongoing since 09/21/2017 . She stated she was notified by the nurse to u urgent care however patient is refusing as she wants to see her primary care. Patient is scheduled to see provider on 10/13/2107 but is requesting a sooner appointment. Please advis e documented in this encount er Plan of Treatment +--------+---------+ + + + | Date | Type | Specialty | Care Team | Description | +--------+---------+ + + + | 04/29/ | Office | Internal Medicine | Abrahan Samaniego MD | | | 2019 | Visit | | [address] | | | | | | [place] | | | | | | [address] | | | | | | | | +--------+---------+ + + + | 07/25/ | Office | Cardiology | Ren[place], | | | 2020 | Visit | | PARK[address] | | | | | | [place], | | | | | | [place] [address] | | | | | | [phone] | | | | | | | | +--------+---------+ + + + | 09/03/ | Office | Endocrinology | Cheryl Zee MD | | | 2020 | Visit | | [address] [place] | | | | | | [address] [place] | | | | | | [phone] | | | | | | | | +--------+---------+ + + + documented as of this encounter Visit Diagnoses Not on filedocumented in this encounter"
--- OUTSIDE RECORDS SUMMARY | ~2020-01-04 | XMS | Encounter Summary ---
Demographics + + + | Address | [address] | | | [place] [address] | + + + | Home Phone | | + + + | Preferred Language | Unknown | + + + | Marital Status | | + + + | Evangelical Affiliation | 1027 | + + + | Race | Unknown | + + + | Ethnic Group | Unknown | + + + Author + + + | Author | [facility] | | | and [place] | + + + | Organization | [facility] | | | [...] [place], | | | | | [place] [address] | | + + + + + | Ryan Vogt | ECON | Unknown | | + + + + + | Rob Vogt | ECON | Unknown | | + + + + + Care Team Providers + +------+ + | Care Contract Officer Name | Role | Phone | + +------+ + | Abrahan Samaniego MD | PCP | | + +------+ + Encounter Details +--------+ + + + + | Date | Type | Department | Care Team | Description | +--------+ + + + + | 07/28/ | Orders Only | [facility] | Cheryl eZe MD | High alkaline | | 2020 | | [place] | [address] [place] | phosphatase level | | | | ENDOCRINOLOGY [address] | [address] [place] [address] | | | | | [address] [place] [address] | [address] | | | | | [place] | | | | | | [address] | | | | | | [phone] | | | +--------+ + + + [...] | | | | | | [place] [address] | | | | | | [phone] | | | | | | | | +--------+---------+ + + + | 09/03/ | Office | Endocrinology | Cheryl Zee MD | | | 2020 | Visit | | [address] [place] | | | | | | [address] [place], [place] | | | | | | [address] | | | | | | | | +--------+---------+ + + + documented as of this encounter Results GGT (08/07/2019 4:55 PM PST) + + + + + + | Component | Value | Ref Range | Performed | Pathologist | | | | | At | Signature | + + + + + + | GGT | 14Comment: New method in | 0 - 38 U/L | [facility] | | | | use as of August 03 | | [facility] | | | | 2018. Check reference [...] + | [facility] | [address] | [place] | [phone] | | [facility] | | [address] | | | - LABORATORY | | | | + + + + + Comprehensive Metabolic Panel (08/07/2019 4:55 PM PST) + + + + + + | Component | Value | Ref Range | Performed | Pathologist | | | | | At | Signature | + + + + + + | Na | 144 | 136 - 145 | [facility] | | | | | mmol/L | [facility] | | | | | | MEDICAL | | | | | | CENTER - | | | | | | LABORATORY | | + + + + + + | K | 3.8 | 3.4 - 5.1 | [facility] | | | | | mmol/L | [facility] | | | | | | MEDICAL | | | | | | CENTER - | | | | | | LABORATORY | | + + + + + + | Cl | 109 (H) | 98 - 107 mmol/L | [facility] | | | | | | [facility] | | | | | | MEDICAL | | | | | | CENTER - | | | | | | LABORATORY | | + + + + + + | CO2 | 27 | 20 - 31 mmol/L | [facility] | | | | | | [facility] | | | | | | MEDICAL | | | | | | CENTER - | | | | | | LABORATORY | | + + + + + + | Anion Gap | 8 | 3 - 16 mmol/L | [facility] | | | | | | [facility] | | | | | | MEDICAL | | | | | | CENTER - | | | | | | LABORATORY | | + + + + + + | Glucose | 88 | 60 - 106 mg/dL | [facility] | | | | | | [facility] | | | | | | MEDICAL | | | | | | CENTER - | | | | | | LABORATORY | | + + + + + + | BUN | 20 | 9 - 23 mg/dL | [facility] | | | | | | [facility] | | | | | | MEDICAL | | | | | | CENTER - | | | | | | LABORATORY | | + + + + + + | Creatinine | 0.85 | 0.55 - 1.02 | [facility] | | | | | mg/dL | [facility] | | | | | | MEDICAL | | | | | | CENTER - | | | | | | LABORATORY | | + + + + + + | eGFR, | >60Comment: GLOMERULAR | >=60 | [facility] | | | non- | FILTRATION | mL/min/1.73m2 | [facility] | | | Filipino | RATE,ESTIMATED | | MEDICAL | | | | mL/min/1.44j8Qbuu than | | CENTER - | | [...] + + | Calcium | 9.5 | 8.7 - 10.4 | [facility] | | | | | mg/dL | [facility] | | | | | | MEDICAL | | | | | | CENTER - | | | | | | LABORATORY | | + + + + + + | Albumin | 4.0 | 3.2 - 4.8 g/dL | [facility] | | | | | | [facility] | | | | | | MEDICAL | | | | | | CENTER - | | | | | | LABORATORY | | + + + + + + | Bilirubin | 0.4 | 0.3 - 1.2 mg/dL | [facility] | | | Total | | | [facility] | | | | | | MEDICAL | | | | | | CENTER - | | | | | | LABORATORY | | + + + + + + | Total | 6.0 | 5.7 - 8.2 g/dL | [facility] | | | Protein | | | [facility] | | | | | | MEDICAL | | | | | | CENTER - | | | | | | LABORATORY | | + + + + + + | AST | 17 | 0 - 34 U/L | [facility] | | | | | | [facility] | | | | | | MEDICAL | | | | | | CENTER - | | | | | | LABORATORY | | + + + + + + | ALT | 20 | 10 - 49 U/L | [facility] | | | | | | [facility] | | | | | | MEDICAL | | | | | | CENTER - | | | | | | LABORATORY | | + + + + + + | Alkaline | 127 (H) | 46 - 116 U/L | [facility] | | | Phosphatase | | | [facility] | | | | | | MEDICAL | | | | | | CENTER - | | | | | | LABORATORY | | + + + + + + | Globulin | 2.0 (L) | 2.1 - 3.8 g/dL | [facility] | | | | | | [facility] | | | | | | MEDICAL | | | | | | CENTER - | | | | | | LABORATORY | | + + + + + + | Albumin/Rachel | 2.0 (H) | 0.8 - 1.9 | [facility] | | | bulin Ratio | | | [facility] | | | | | | MEDICAL | | | | | | CENTER - | | | | | | LABORATORY | | + + + + + + | BUN/Creatin | 23.5 | | [facility] | | | ine [...] | + + + + + | [facility] | [address] | [place] | [phone] | | [facility] | | [address] | | | - LABORATORY | | | | + + + + + Vitamin D, Deficiency Screen (25-Hydroxy) (08/07/2019 4:55 PM PST) + +-------+ + + + | Component | Value | Ref Range | Performed | Pathologist | | | | | At | Signature | + +-------+ + + + | Vitamin D, | 75 | 30 - 100 ng/mL | [facility] [...] [address] | [place] | [phone] | | [facility] | | [address] | | | - LABORATORY | | | | + + + + + documented in this encounter Visit Diagnoses + + | Diagnosis | + + | High alkaline phosphatase level | + + documented in this encounter"
--- OUTSIDE RECORDS SUMMARY | ~2020-01-04 | XMS | Encounter Summary ---
Demographics + + + | Address | [address] | | | [place] [address] | + + + | Home Phone | | + + + | Preferred Language | Unknown | + + + | Marital Status | | + + + | Yazidism Affiliation | LDS | + + + | Race | White | + + + | Ethnic Group | Not or | + + + Author + + + | Author | [facility] | + + + | Organization | [facility] | + + + | Address | Unknown | + + + | Phone | Unavailable | + + + Support + + +---------+ + | Name | Relationship | Address | Phone | + + +---------+ + | Titus Vogt | ECON | Unknown | | + + +---------+ + | Cristofer Lyon | ECON | Unknown | | + + +---------+ + | Rob Lyon | ECON | Unknown | | + + +---------+ + Care Team Providers + +------+ + | Care Zanjero Name | Role | Phone | + +------+ + | Abrahan Samaniego MD | PCP | | + +------+ + Reason for Referral Consult to [place] (Routine) +--------+--------+ + + + + | Status | Reason | Specialty | Diagnoses / | Referred By | Referred To | | | | | Procedures | Contact | Contact | +--------+--------+ + + + + | Closed | | Neurological | Diagnoses | Amando, | Amando, | | | | Surgery | Frontal | Hudson, MD | Acljason, MD | | | | | skull lesion | [address] | [address] | | | | | Procedures | Ave | Ave | | | | | REQUEST TO | [place] | | | | | SURGERY | [address] | [address] | | | | | CARPENTRY SPECIALIST | Phone: | Phone: | | | | | [place] OPEN | [phone] | [phone] | | | | | SKULL | Fax: | Fax: | | | | | SUPRATENT | [phone] | [phone] | | | | | EXPLORE [place] | | | | | | | SCAN PROC | | | | | | | CRANIAL | | | | | | | EXTRA | | | +--------+--------+ + + + + Reason for Visit + + + | Reason | Comments | + + + | New patient | | | consultation | | + + + Consultation (Routine) +--------+--------+ + + + + | Status | Reason | Specialty | Diagnoses / | Referred By | Referred To | | | | | Procedures | Contact | Contact | +--------+--------+ + + + + | Closed | | Neurological | Diagnoses | Aden, | Amando, | | | | Surgery | DX: | Abrahan Cortez MD | MD Hudson | | | | | Calvarial | [address] | [address] | | | | | Lesion | STREET | Ave | | | | | Insurance: | [place], | [place], [place] | | | | | [facility] | [place] [address] | [address] | | | | | | Phone: | Phone: | | | | | | [phone] | [phone] | | | | | | Fax: | Fax: | | | | | | [phone] | [phone] | +--------+--------+ + + + + Encounter Details +--------+---------+ + + + | Date | Type | Department | Care Team | Description | +--------+---------+ + + + | 08/13/ | Office | Neurosurgery at | Hudson Govea MD | Frontal skull lesion | | 2011 | Visit | [facility] [address] | [address] | (Primary Dx) | | | | Ave [facility] | [place], [place] | | | | | [facility], | [address] | | | | | [facility] | [phone] | | | | | floor [place], [place] | | | | | | [address] | | | | | | [phone] | | | +--------+---------+ + + + Social History + +-------+ +--------+------+ | Tobacco Use | Types | Packs/Day | Years | Date | | | | | Used | | + +-------+ +--------+------+ | Never Smoker | | | | | + +-------+ +--------+------+ + + +---------+ + | Alcohol Use | Drinks/Week | oz/Week | Comments | + + +---------+ + | No | | | | + + +---------+ + + + + | Sex Assigned at | Date Recorded | | | | + + + | Not on file | | + + + + + + + | Job Start Date | Occupation | Industry | + + + + | Not on file | Not on file | Not on file | + + + + + + + + | Travel History | Travel Start | Travel End | + + + + + + | No recent travel history available. | + + documented as of this encounter Last Filed Vital Signs + + + + + | Vital Sign | Reading | Time Taken | Comments | + + + + + | Blood Pressure | 145/87 | 08/14/2011 9:16 AM | | | | | PST | | + + + + + | Pulse | 73 | 08/14/2011 9:16 AM | | | | | PST | | + + + + + | Temperature | 36.9 C (98.5 F) | 08/14/2011 9:16 AM | | | | | PST [...] + + + + | Weight | 67.4 kg (148 lb 8 | 08/14/2011 9:16 AM | | | | oz) | PST | | + + + + + | Height | - | - | | + + + + + | Body Mass Index | - | - | | + + + + + documented in this encounter Progress Notes Hudson Govea MD - 08/14/2011 9:58 AM PSTFormatting of this note might be different from t he original. 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 She does not have any sympto ms or complains. She was sent to me for bone biopsy. This patient denies any difficulties with numbness or weakness of face, difficulty with swa llowing, history of seizures, numbness or weakness of extremities, or difficulty with gait. No current outpatient prescriptions on file. Allergies Allergen Reactions Succinylcholine Past Surgical History Procedure Date Cholecystectomy Hx shunt placement Blood clot evacuation Eclapsia Past Medical History Diagnosis Date H pylori ulcer Abdominal pain, other specified site Kidney failure Headache Panhypopituitarism Family History Problem Relation Cancer Father Hypertension Mother Arthritis Father History Smoking status Never Smoker Smokeless tobacco Not on file History Alcohol Use No Review of Systems: Significant for headache, ear ringing, blurry vision, sinusitis, backache. (Medications, allergies, past surgical history, past medical history, social history, and r eview of systems were reviewed by me and if not recorded in [facility] will be scanned into the [employer] [place] using intake patient forms during this encounter.) Physical Exam: BP 145/87 | Pulse 73 | Temp (Src) 36.9 C (98.5 F) (Oral) | Wt 67.359 kg (148 lb 8 oz) Neurological Examination: Mental status: Normal consciousness, orientation, affect and fluency. Cranial nerves: II-XII intact on detailed examination. Motor: Normal strength, muscle bulk, and tone. Sensory: Intact to pinprick and light touch. Cerebellar: Normal [id number], and rapid alternating movements. Gait: Normal. Tandem and Romberg negative. Deep tendon reflexes: Present and normoactive. Pathologic reflexes: Absent. Imaging: MRI scans: Right frontal lytic bony lesions. Assessment: Skull lesions Plan: I gave them detailed information about the bony lesions and recommended biopsy for th at. A complete discussion regarding the surgical procedure planned was discussed. This include d a description of the procedure in detail and the risks and benefits of the surgery. All th eir excellent questions were answered at length and they expressed understanding and satisfa ction. They understand that life and function threatening complications can arise at any time.. T his discussion included risks of anesthesia, cardiac and pulmonary risks, infection, stroke, and neurological deficits. The patient has agreed to surgery and we scheduled on September 06. I spent more than 30 minutes [id number] with the patient of which greater than 50% was sp ent counseling the patient regarding bony lesions. HUDSON GOVEA MD NEUROSURGERY [address] [place] [address] Mailcode: Ch8n [facility], [address] [facility] [address] documented in this encou nter Plan of Treatment Not on filedocumented as of this encounter Visit Diagnoses + + | Diagnosis | + + | Frontal skull lesion - Primary Disorder of bone and cartilage, unspecified | + + documented in this encounter"
--- OUTSIDE RECORDS SUMMARY | ~2020-01-04 | XMS | Encounter Summary ---
Demographics + + + | Address | [address] | | | [place] [address] | + + + | Home Phone | | + + + | Preferred Language | Unknown | + + + | Marital Status | | + + + | Methodist Affiliation | 1027 | + + + | Race | Unknown | + + + | Ethnic Group | Unknown | + + + Author + + + | Author | [facility] | | | and [place] | + + + | Organization | [facility] | | [...] [place], | | | | | [place] [address] | | + + + + + | Ryan Vogt | ECON | Unknown | | + + + + + | Rob Vogt | ECON | Unknown | | + + + + + Care Team Providers + +------+ + | Care Certified Composites Technician Name | Role | Phone | + +------+ + | Abrahan Samaniego MD | PCP | | + +------+ + Reason for Referral Evaluate & Treat (Urgent) +--------+ + + + + + | Status | Reason | Specialty | Diagnoses / | Referred By | Referred To | | | | | Procedures | Contact | Contact | +--------+ + + + + + | Closed | Specialty | Cardiology | Diagnoses | Aden, | [facility] | | | Services | | Angina of | Abrahan Cortez MD | Cardiology | | | Required | | effort ([facility]) | [address] | [address] | | | | | | [address] | [place], | | | | | | [place], | [place] | | | | | | [place] [address] | [address] | | | | | | Phone: | Phone: | | | | | | [phone] | [phone] | | | | | | Fax: | Fax: | | | | | | [phone] | [phone] | +--------+ + + + + + Reason for Visit + +--------+ + | Reason | Onset | Comments | | | Date | | + +--------+ + | Referral | 11/10/ | | | | 2018 | | + +--------+ + Encounter Details +--------+ + + + + | Date | Type | Department | Care Team | Description | +--------+ + + + + | 11/10/ | Telephone | [facility] | Abrahan Samaniego MD | Referral | | 2018 | | [address] | [address] [place] [address] | | | | | [place], | [place] | | | | | [place] [address] | [id number] | | | | | [phone] | | | +--------+ + + + [...] Telephone Encounter - Christina Wilson LPN - 11/10/2018 4:23 PM PDTReferral entered.Electr onically signed by Christina Wilson LPN at 11/10/2018 4:24 PM PDTTelephone Encounter - Emigdio mackJessie - 11/10/2018 4:06 PM PDTMayra for Cardiology called stating patient was seen at ER on 11/10/18 and needs a referral to be seen at Cardiology. Paula [phone]. Please advice.El ectronically signed by Jessie Mott at 11/10/2018 4:10 PM PDTdocumented in this encounter Plan of Treatment +--------+---------+ + + + | Date | Type | Specialty | Care Team | Description | +--------+---------+ + + + | 04/29/ | Office | Internal Medicine | Abrahan Samaniego MD | | | 2019 | Visit | | [address] [place] [address] | | | | | | [place] | | | | | | [address] | | | | | | | | +--------+---------+ + + + | 07/25/ | Office | Cardiology | Renetta, | | | 2020 | Visit | | Kimberly, TONNAGE COMPILATION CLERK [address] | | | | | | [place], | | | | | | [place] [address] | | | | | | [phone] | | | | | | | | +--------+---------+ + + + | 09/03/ | Office | Endocrinology | Cheryl Zee MD | | | 2020 | Visit | | [address] | | | | | | [address] [place] | | | | | | [id number] | | | | | | | | +--------+---------+ + + + + + +--------+ + + | Name | Type | Priori | Associated Diagnoses | Order Schedule | | | | ty | | | + + +--------+ + + | * [facility] | Outpatient | Routin | [facility] of effort | Ordered: 11/10/2018 | | Cardiology - AMB | Referral | e | ([facility]) | | | Referral | | | | | + + +--------+ + + documented as of this encounter Visit Diagnoses + + | Diagnosis | + + | Angina of effort ([facility]) - Primary Other and unspecified angina pectoris | + + documented in this encounter"
--- OUTSIDE RECORDS SUMMARY | ~2020-01-04 | XMS | Encounter Summary ---
Demographics + + + | Address | [address] | | | [place] [address] | + + + | Home Phone [...] | Author | [facility] | | | and [...] [place], | | | | | [place] [address] | | + + + + + | Ryan Vogt | ECON | Unknown | | + + + + + | Rob Vogt | ECON | Unknown | | + + + + + Care Team Providers + +------+ + | Care Bituminous Paving Machine Operator Name | Role | Phone | + +------+ + | Abrahan Samaniego MD | PCP | | + +------+ + Reason for Visit + + + | Reason | Comments | + + + | Follow-up | Right knee pain MRI REVIEW | + + + Evaluate & Treat (Routine) +--------+ + + + + + | Status | Reason | Specialty | Diagnoses / | Referred By | Referred To | | | | | Procedures | Contact | Contact | +--------+ + + + + + | Closed | Specialty | Orthopedic | Diagnoses | Aden, | Roland, | | | Services | Surgery | Knee pain, | Abrahan Cortez MD | Eugene Shrestha MD | | | Required | | unspecified | [address] | [address] | | | | | chronicity, | STREET | [address] [place] | | | | | unspecified | [place], | [place] | | | | | laterality | [place] [address] | [address] Phone: | | | | | | Phone: | [phone] | | | | | | [phone] | Fax: | | | | | | Fax: | [phone] | | | | | | [phone] | | +--------+ + + + + + Encounter Details +--------+---------+ + + + | Date | Type | Department | Care Team | Description | +--------+---------+ + + + | 04/13/ | Office | [facility] | Abrahan Samaniego MD | Complex tear of | | 2019 | Visit | ORTHOPEDIC SURGERY | [address] [facility] | medial meniscus of | | | | [address] [place] | [place] | right knee as | | | | [place] | [address] | current injury, | | | | [address] | | initial encounter | | | | [phone] | Eugene Watkins | (Primary Dx) | | | | | MD Fady [address] [facility] | | | | | | [place] | | | | | | [id number] | | | | | | | [...] + + + | Blood Pressure | - | - | | + + + + + | Pulse | - | - | | + [...] Weight | 70.3 kg (155 lb) | 04/13/2019 9:34 AM | | | | | PST | | + + + + + | Height | 162.6 cm (5' 4") | 04/13/2019 9:34 AM | | | | | PST | | + + + + + | Body Mass Index | 26.61 | 04/13/2019 9:34 AM | | | | | PST | | + + + + + documented in this encounter Progress Notes Eugene Watkins MD - 04/13/2019 9:30 AM Alvin returns for follow-up of her right knee pain that she has had for more than one half of the year. She continues to have interm ittent but persistent symptoms that is limiting her walking capability. Examination: Exam of the patient's right knee reveals that it remains distinctly tender to palpation over the posterior medial joint line and she identifies this as her area of greate st pain. Imaging: An MRI was obtained of her right knee on 04/05/19 and those films are available fo r review. The significant findings include a prominent posterior horn medial meniscus tear and a probable lateral meniscus tear as well. In addition she has some degree of chondromal acia and a moderate sized popliteal cyst. Advice: We have discussed our findings with Oliva. She continues to be symptomatic and has failed conservative measures and would like to proceed with definitive surgical treatment. I feel that she is a candidate for a right knee arthroscopy and we will therefore schedule her for right knee arthroscopic surgery following financial clearance at a time that is conv enient for her schedule. documented in this encounter Plan of Treatment +--------+---------+ + + + | Date | Type | Specialty | Care Team | Description | +--------+---------+ + + + | 04/29/ | Office | Internal Medicine | Abrahan Samaniego MD | | | 2019 | Visit | | [address] | | | | | | [place] | | | | | | [address] | | | | | | | | +--------+---------+ + + + | 07/25/ | Office | Cardiology | Renetta, | | | 2020 | Visit | | PARKER Harris [address] | | | | | | [place], | | | | | | [place] [address] | | | | | | [phone] | | | | | | | | +--------+---------+ + + + | 09/03/ | Office | Endocrinology | Cheryl Zee MD | | | 2020 | Visit | | [address] | | | | | | [address] [place] | | | | | | [phone] | | | | | | | | +--------+---------+ + + + documented as of this encounter Visit Diagnoses + + | Diagnosis | + + | Complex tear of medial meniscus of right knee as current injury, initial encounter - | | Primary | + + documented in this encounter
--- OUTSIDE RECORDS SUMMARY | ~2020-01-04 | XMS | Encounter Summary ---
Demographics + + + | Address | [address] | | | [place] [address] | + + + | Home Phone | | + + + | Preferred Language | Unknown | + + + | Marital Status | | + + + | Zoroastrian Affiliation | 1027 | + + + | Race | Unknown | + + + | Ethnic Group | Unknown | + + + Author + + + | Author | [facility] | | | and [place] [...] [place], | | | | | [place] [address] | | + + + + + | Ryan Vogt | ECON | Unknown | | + + + + + | Rob Vogt | ECON | Unknown | | + + + + + Care Team Providers + +------+ + | Care Retail Planner Name | Role | Phone | + +------+ + | Abrahan Samaniego MD | PCP | | + +------+ + Reason for Visit + + + | Reason | Comments | + + + | Pre-op Exam | RIGHT KNEE ARTHROSCOPY AND DEBRIDEMENT DOS 06/02/19 | + + + Encounter Details +--------+---------+ + + + | Date | Type | Department | Care Team | Description | +--------+---------+ + + + | 05/23/ | Office | [facility] [place] [place] | Eugene Watkins | Secondary | | 2019 | Visit | ORTHOPEDIC SURGERY | MD Fady [address] | hypothyroidism | | | | [address] | [place] | (Primary Dx); | | | | [place] | [address] | Hyperlipidemia, | | | | [address] | | unspecified | | | | [phone] | | hyperlipidemia type; | | | | | | Stage 3 chronic | | | | | | kidney disease | | | | | | (HCC); Complex tear | | | | | | of medial meniscus | | | | | | of right knee as | | | | | | current injury, | | | | | | initial encounter | +--------+---------+ + + + Social History [...] + + documented as of this encounter Patient Instructions Patient Instructions Bela Encarnacion RN - 05/23/2019 10:00 AM PSTPRE-OPERATIVE INSTRUC TIONS Your Surgery has been scheduled on June 02 at [facility]. Vadim e check-in at 8:00. Please note that your check-in time is not the time of your surgery. Du e to possible delays, please bring something to occupy your time. REMEMBER: - NOTHING to EAT AFTER MIDNIGHT THE NIGHT PRIOR TO SURGERY! - You CAN have water up to 2 hours prior to your check in time. (ONLY WATER). - If your check-in time is before 8:00 am and you are not an early riser, we encourage you to drink a big glass of water prior to going to bed and nothing to eat or drink after midnig ht. You may have enough water to swallow your medications the morning of your surgery. - MEDICATIONS: ? TAKE (only if regularly taken in the morning): ? Atorvastatin (Lipitor) ? Levothyroxine (Synthroid) ? Prednisone ? Omnitrope ? STOP: ? All NSAIDs (aspirin, ibuprofen, naproxen) 5 days prior to surgery. Acetaminophen (Tylenol ) is ok to take. ? Amlodipine 1 day prior ? All vitamins/supplements 1 week prior to surgery ? SKIP: ? Potassium day of procedure - If you have a CPAP machine, please bring it with you to the hospital. - DO NOT use any lotions, colognes, perfumes, aftershaves or deodorant the morning of surge ry. Please remove all nail jamaican and acrylics. - Please leave all jewelry and valuables at home. - Contact lenses must be removed prior to surgery. Please bring your eye glasses - Please note that street clothes are NOT allowed in the OR, this includes undergarments. - YOU WILL NEED SOMEONE TO DRIVE YOU HOME AFTER DISCHARGED FROM THE HOSPITAL. (A minor is n ot appropriate) - Call the office at [phone] with any questions or concerns. ? POST-OP APPOINTMENT with Mitch Duarte on June 13 at 2:30. documented in this encounter Progress Notes Eugene Watkins MD - 05/23/2019 10:00 AM PSTFormatting of this note might be differen t from the original. History of present illness: Oliva is a [...] CV LHC; Surgeon: Benigno Deras MD; Location: [facility] CV LAB CHOLECYSTECTOMY COLONOSCOPY 03/12/2014 COLONOSCOPY; Laterality: N/A; Surgeon: Shaji Thornton MD; Location: [facility] MEDICAL PROCEDU RE UNIT CYST REMOVAL [...] file Gets together: Not on file Attends orthodoxy service: Not on file Active member of [...] in 2019 . She works at the [employer]. She doesn't exercise because she is so busy with Zuli er grands. Enjoys doing genealogy. 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 Review [...] diligent effort. documented in th is encounter Plan of Treatment +--------+---------+ + + + | Date | Type | Specialty | Care Team | Description | +--------+---------+ + + + | 04/29/ | Office | Internal Medicine | Abrahan Samaniego MD | | | 2019 | Visit | | [address] [place] [address] | | | | | | [place] | | | | | | [address] | | | | | | | | +--------+---------+ + + + | 07/25/ | Office | Cardiology | Renetta, | | | 2020 | Visit | | PARKER Harris [address] | | | | | | [place] | | | | | | [place] [address] | | | | | | [phone] | | | | | | | | +--------+---------+ + + + | 09/03/ | Office | Endocrinology | Cheryl Zee MD | | | 2020 | Visit | | [address] [place] | | | | | | [address] [place] | | | | | | [address] | | | | | | | | +--------+---------+ + + + documented as of this encounter Results Hemoglobin (05/23/2019 4:20 PM PST) + +-------+ + + + | Component | Value | Ref Range | Performed | Pathologist | | | | | At | Signature | + +-------+ + + + | Hemoglobin | 13.9 | 11.5 - 16.0 | [facility] | | | | | g/dL | [facility] | | | | [...] ST. | [address] | [place], [place] | [phone] | | [facility] | | [address] | | | - LABORATORY | | | | + + + + + documented in this encounter Visit Diagnoses + + | Diagnosis | + + | Secondary hypothyroidism - Primary Other specified acquired hypothyroidism | + + | Hyperlipidemia, unspecified hyperlipidemia type | + + | Stage 3 chronic kidney disease (HCC) | + + | Complex tear of medial meniscus of right knee as current injury, initial encounter | + + documented in this encounter
--- OUTSIDE RECORDS SUMMARY | ~2020-01-04 | XMS | Encounter Summary ---
Demographics + + + | Address | [address] | | | [place] [address] | + + + | Home Phone | | + + + | Preferred Language | Unknown | + + + | Marital Status | | + + + | Worship Affiliation | 1027 | + + + | Race | Unknown | + + + | Ethnic Group | Unknown | + + + Author + + + | Author | [facility] | | | and [place] | + + + | Organization | [facility] | | | and [...] [place], | | | | | [place] [address] | | + + + + + | Ryan Vogt | ECON | Unknown | | + + + + + | Rob Vogt | ECON | Unknown | | + + + + + Care Team Providers + +------+ + | Care Supervisor Blueprinting And Photocopy Name | Role | Phone | + +------+ + | Abrahan Samaniego MD | PCP | | + +------+ + Reason for Referral Diagnostic/Screening (Routine) +--------+--------+ + + + + | Status | Reason | Specialty | Diagnoses / | Referred By | Referred To | | | | | Procedures | Contact | Contact | +--------+--------+ + + + + | Closed | | Radiology | Diagnoses | [place], | [address] | | | | | Pulmonary | Abrahan Cortez MD | [address] | | | | | nodule | [address] | [place], | | | | | Procedures | [address] | [place] [address] | | | | | CT Chest wo | [place], | Phone: | | | | | Contrast | [place] [address] | [phone] | | | | | | Phone: | Fax: | | | | | | [phone] | [phone] | | | | | | Fax: | | | | | | | [phone] | | +--------+--------+ + + + + Reason for Visit + +--------+ + | Reason | Onset | Comments | | | Date | | + +--------+ + | Follow-up | 06/30/ | | | | 2015 | | + +--------+ + Encounter Details +--------+ + + + + | Date | Type | Department | Care Team | Description | +--------+ + + + + | 06/30/ | Telephone | [facility] | Abrahan Samaniego MD | Follow-up | | 2015 | | MEDICINE [address] | [address] [facility] | | | | | [place], | [place] | | | | | [place] [address] | [address] | | | | | [phone] | | | +--------+ + + + [...] Telephone Encounter - Abrahan Samaniego MD - 06/30/2015 10:32 AM PST6 mm nodule on lung. CT ordered documented i n this encounter Plan of Treatment +--------+---------+ + + + | Date | Type | Specialty | Care Team | Description | +--------+---------+ + + + | 04/29/ | Office | Internal Medicine | Abrahan Samaniego MD | | | 2019 | Visit | | [address] [place] [address] | | | | | | [place] | | | | | | [id number] | | | | | | | | +--------+---------+ + + + | 07/25/ | Office | Cardiology | Renetta, | | | 2020 | Visit | | PARKER Harris [address] | | | | | | [place] | | | | | | [place] [address] | | | | | | [phone] | | | | | | | | +--------+---------+ + + + | 09/03/ | Office | Endocrinology | Cheryl Zee MD | | | 2020 | Visit | | [address] | | | | | | [address] [place] | | | | | | [id number] | | | | | | | | +--------+---------+ + + + documented as of this encounter Results CT Chest wo Contrast (07/05/2015 11:41 AM PST) + + | Specimen | + + | | + + + + + | Narrative | Performed At | + + + | CT CHEST WO CONTRAST . 07/05/2015 11:40 AM HISTORY: 6 mm | [facility] | | pulmonary nodule COMPARISON: Chest x-ray 06/27/2015 | [facility] | | TECHNIQUE: Axial images were obtained from the base of the neck to the [facility] | | upper abdomen without IV contrast. Multiplanar reformatted images | - IMAGING | | created. RADIATION DOSE: DLP 159 mGy-cm FINDINGS: The | | | structures at the base of the neck are unremarkable. No | | | pathologically enlarged mediastinal lymph nodes are evident. The | | | esophagus is within normal limits. The trachea is within normal | | | limits. Minimal calcification is seen in the aorta and branching | | | vessels, which are otherwise unremarkable. The pulmonary arterial | | | structures are within normal limits. The heart is within normal | | | limits, without pericardial effusion. Mild atelectasis and/or | | | scarring seen laterally in the right middle lobe near the lung base. | | | Mild atelectasis and/or scarring also seen in bilateral lower lobes | | | at the lung base. No evidence of pulmonary nodule or masslike area | | | in either lung. No abnormalities seen in the lungs or in the chest | | | wall to correspond to the nodular-appearing finding on the prior | | | x-ray, which likely represents summation artifact. No pleural | | | effusion or pneumothorax is seen. Surgically absent gallbladder. | | | Otherwise unremarkable visualized upper abdominal viscera. The | | | visualized osseous structures are within normal limits. The muscles | | | and subcutaneous soft tissues are unremarkable. IMPRESSION - | | | Minimal atelectasis and/or scarring in the lungs. No pulmonary nodule | | | or other pulmonary mass to correspond to the abnormality seen on the | | | prior chest x-ray, which likely represents formation artifact. | | | Dictated and Signed by: Reji Kelley MD Electronically signed: | | | 07/05/2015 4:58 PM | | + + + + + | Procedure Note | + + | Vishnu, Rad Results In - 07/05/2015 5:[address] CHEST WO CONTRAST . 07/05/2015 11:40 | | AM HISTORY: 6 mm pulmonary nodule COMPARISON: Chest x-ray 06/27/2015 TECHNIQUE: | | Axial images were obtained from the base of the neck to the upperabdomen without IV | | contrast. Multiplanar reformatted images created.RADIATION DOSE: DLP 159 | | mGy-cmFINDINGS: The structures at the base of the neck are unremarkable.No | | pathologically enlarged mediastinal lymph nodes are evident.The esophagus is within | | normal limits.The trachea is within normal limits.Minimal calcification is seen in the | | aorta and branching vessels, which areotherwise unremarkable.The pulmonary arterial | | structures are within normal limits.The heart is within normal limits, without | | pericardial effusion.Mild atelectasis and/or scarring seen laterally in the right middle | | lobe nearthe lung base. Mild atelectasis and/or scarring also seen in bilateral | | lowerlobes at the lung base.No evidence of pulmonary nodule or masslike area in either | | lung. Noabnormalities seen in the lungs or in the chest wall to correspond to | | thenodular-appearing finding on the prior x-ray, which likely represents | | summationartifact.No pleural effusion or pneumothorax is seen.Surgically absent | | gallbladder. Otherwise unremarkable visualized upperabdominal viscera.The visualized | | osseous structures are within normal limits.The muscles and subcutaneous soft tissues | | are unremarkable. IMPRESSION - Minimal atelectasis and/or scarring in the lungs.No | | pulmonary nodule or other pulmonary mass to correspond to the abnormalityseen on the | | prior chest x-ray, which likely represents formation artifact.Dictated and Signed by: | | Reji Kelley MD Electronically signed: 07/05/2015 4:58 PM | |the lung base. Mild atelectasis and/or scarring also seen in bilateral lower | |lobes at the lung base. | |No evidence of pulmonary nodule or masslike area in either lung. No | |abnormalities seen in the lungs or in the chest wall to correspond to the | |nodular-appearing finding on the prior x-ray, which likely represents summation | |artifact. | |No pleural effusion or pneumothorax is seen. | | | |Surgically absent gallbladder. Otherwise unremarkable visualized upper | |abdominal viscera. | |The visualized osseous structures are within normal limits. | |The muscles and subcutaneous soft tissues are unremarkable. | | | | | |IMPRESSION - | |Minimal atelectasis and/or scarring in the lungs. | |No pulmonary nodule or other pulmonary mass to correspond to the abnormality | |seen on the prior chest x-ray, which likely represents formation artifact. | | | |Dictated and Signed by: Reji Kelley MD | | Electronically signed: 07/05/2015 4:58 PM | + + + + + + + | Performing | Address | City/State/Zipcode | Phone Number | | Organization | | | | + + + + + | [facility] | [address] | [place] | [phone] | | [facility] | | [address] | | | - IMAGING | | | | + + + + + documented in this encounter Visit Diagnoses + + | Diagnosis | + + | Pulmonary nodule - Primary Solitary pulmonary nodule | + + documented in this encounter"
--- OUTSIDE RECORDS SUMMARY | ~2020-01-04 | XMS | Encounter Summary ---
Demographics + + + | Address | [address] | | | [place] [address] | + + + | Home Phone | | + + + | Preferred Language | Unknown | + + + | Marital Status | | + + + | Spiritism Affiliation | 1027 | + + + | Race | Unknown | + + + | Ethnic Group | Unknown | + + + Author + + + | Author | [facility] | | | and [place] | + + + | Organization | [facility] | | | [...] [address] | | | | | [address] [place], | | | | | [place] [address] | | + + + + + | Ryan Vogt | ECON | Unknown | | + + + + + | Rob Vogt | ECON | Unknown | | + + + + + Care Team Providers + +------+ + | Care Lamina Searcher Name | Role | Phone | + +------+ + | Abrahan Samaniego MD | PCP | | + +------+ + Reason for Visit + + + | Reason | Comments | + + + | Shoulder Injury | | + + + Encounter Details +--------+---------+ + + + | Date | Type | Department | Care Team | Description | +--------+---------+ + + + | 09/30/ | Office | [facility] | Ulices Simmons | Sprain of left | | 2012 | Visit | OCCUPATIONAL HEALTH | MD Ricco Need | shoulder (Primary | | | | [place] [address] | updated address | Dx); Place of | | | | [address] [facility] | | occurrence, | | | | [place] | | industrial places | | | | [address] | | and premises | | | | [phone] | | | +--------+---------+ + + + [...] + + + | Blood Pressure | 124/76 | 09/30/2012 1:07 PM | | | | | PDT | | + + + + + | Pulse | 76 | 09/30/2012 1:07 PM | | | | | PDT | | + + + + + | Temperature | 36.8 C (98.3 F) | 09/30/2012 1:07 PM | | | | | PDT | | + + + + + | Respiratory Rate | 16 | 09/30/2012 1:07 PM | | | | | PDT | | + + + + + | Oxygen Saturation | - | - | | + + + + + | Inhaled Oxygen | - | - | | | Concentration | | | | + + + + + | Weight | 69.4 kg (153 lb) | 09/30/2012 1:07 PM | | | | | PDT | | + + + + + | Height | 160 cm (5' 3") | 09/30/2012 1:07 PM | | | | | PDT | | + + + + + | Body Mass Index | 27.1 | 09/30/2012 1:07 PM | | | | | PDT | | + + + + + documented in this encounter Progress Notes Ulices Simmons MD - 09/30/2012 5:13 PM PDTSee dictation [id number] liban d by Ulices Simmons MD at 09/30/2012 5:15 PM PDTWarUlices pichardo MD - 10/01/19 13 12:00 AM PDT OCCUPATIONAL MEDICINE [address] [place] [address] FAX: [phone] OFFICE VISIT BACKGROUND INFORMATION CLAIM NO.: [id number] DATE OF INJURY: 01/06/2012 EMPLOYER: [employer] GUARANTOR: Mario Serrano COMPLAINT: Left shoulder injury, scheduled 2-week followup. S: The injured worker is 62, here for scheduled followup. She reports not much change, stil l aching discomfort, 2 on a 0 to 10 scale. Unfortunately, she has not been able to start ph ysical therapy and I suspect that there is still an investigation and determination that hi s going to be made with regard to acceptance of the claim because it is not associated with a specific discrete injury. I have spent some time discussing this with the injured worker and she was appreciative of the information. She reports no new development of musculoskel etal or neurologic symptomatology. She has home exercise program that she would like to get started in, and I have advised her that she probably should wait until we can get her some formal education with therapists before going forward with an unsupervised home program. S he does report that she has received a communication from the Department of [employer] and [employer] requesting additional information and that has now been submitted. OBJECTIVE VITAL SIGNS: Unremarkable. GENERAL: No acute distress. She is polite and cooperative. Deemed a reliable historian. No elements of pain behavior or embellishment of symptoms detected on our evaluation. MUSCULOSKELETAL: Left shoulder range of motion shows no change from previous documented exa ms. It is mildly restricted and associated with discomfort, but has essentially near-full r alida of motion. Good distal neurocirculatory response. IMAGING/DIAGNOSTICS: None indicated based on evaluation on this date. PENDING INTERVENTIONS: Continue conservative measures, including work restrictions, and rec heck in 2 weeks, when I anticipate that she will have been able to start therapy by that ti me. A LEFT SHOULDER BIPIN. P: She will continue with conservative measures. Current modified duty position. E: Modified duty. R: The restrictions are limited use of the left arm, no overhead work, no exertional pushin g or pulling greater than 10 pounds. Impairment is undetermined based on current objective findings. It is not an anticipated consequence of this injury, but she is not yet MMI statu s for the above reasons listed. Cam Simmons MD / [facility] JOB #: [id number] signed by Ulices Simmons MD at 10/03/2012 11:17 AM PDTd ocumented in this encounter Miscellaneous Notes Plan of Care - ONKATYA SCAN WAIA - 09/30/2012 12:00 AM PDT documented in this encounter Plan of Treatment +--------+---------+ + + + | Date | Type | Specialty | Care Team | Description | +--------+---------+ + + + | 04/29/ | Office | Internal Medicine | Abrahan Samaniego MD | | | 2019 | Visit | | [address] | | | | | | [place] | | | | | | [address] | | | | | | | | +--------+---------+ + + + | 07/25/ | Office | Cardiology | Renetta, | | | 2020 | Visit | | PARKER Harris [address] | | | | | | [place], | | | | | | [place] [address] | | | | | | [phone] | | | | | | | | +--------+---------+ + + + | 09/03/ | Office | Endocrinology | Cheryl Zee MD | | | 2020 | Visit | | [address] | | | | | | [address] [place] | | | | | | [phone] | | | | | | | | +--------+---------+ + + + documented as of this encounter Visit Diagnoses + + | Diagnosis | + + | Sprain of left shoulder - Primary Sprain and strain of unspecified site of shoulder | | and upper arm | + + | Place of occurrence, industrial places and premises | + + documented in this encounter
--- OUTSIDE RECORDS SUMMARY | ~2020-01-04 | XMS | Encounter Summary ---
Demographics + + + | Address | [address] | | | [place] [address] | + + + | Home Phone | | + + + | Preferred Language | Unknown | + + + | Marital Status | | + + + | Jew Affiliation | 1027 | + + + | Race | Unknown | + + + | Ethnic Group | Unknown | + + + Author + + + | Author | [facility] | | | [...] [place], | | | | | [place] [address] | | + + + + + | Ryan Vogt | ECON | Unknown | | + + + + + | Rob Vogt | ECON | Unknown | | + + + + + Care Team Providers + +------+ + | Care Road Builder Name | Role | Phone | + +------+ + | Abrahan Samaniego MD | PCP | | + +------+ + Encounter Details +--------+ + + + + | Date | Type | Department | Care Team | Description | +--------+ + + + + | 08/23/ | Orders Only | [facility] | Eugene Watkins | Right knee pain, | | 2018 | | ORTHOPEDIC SURGERY | MD Fady [address] | unspecified | | | | [address] | [place] | chronicity (Primary | | | | [place] | [address] | Dx) | | | | [address] | | | | | | [phone] | | | +--------+ + + + [...] | 2019 | Visit | | [address] | | | | | | [place] | | | | | | [address] | | | | | | | | +--------+---------+ + + + | 07/25/ | Office | Cardiology | Renetta, | | | 2020 | Visit | | PARKER Harris [address] | | | | | | [place] | | | | | | [place] [address] | | | | | | [phone] | | | | | | | | +--------+---------+ + + + | 09/03/ | Office | Endocrinology | Cheryl Zee MD | | | 2020 | Visit | | [address] | | | | | | [address] [place] | | | | | | [address] | | | | | | | | +--------+---------+ + + + documented as of this encounter Results XR Knee Right 4 + Vw (08/23/2018 1:40 PM PDT) + + | Specimen | + + | | + + + + + | Narrative | Performed At | + + + | FOUR VIEWS RIGHT KNEE 08/23/2018 1:40 PM CLINICAL HISTORY: RIGHT | [facility] | | KNEE PAIN COMPARISON: None available FINDINGS: The bones are | | | well-mineralized and well aligned. No fracture or subluxation is | | | evident. Joint spaces are maintained. No knee effusion or other | | | soft tissue abnormality is evident. IMPRESSION - 1. | | | UNREMARKABLE RADIOGRAPHIC APPEARANCE OF THE KNEES. Dictated and | | | Signed by: Gonzalo Barragan MD Electronically signed: 08/23/2018 3:01 | | | PM | | + + + + + | Procedure Note | + + | Vishnu, Rad Results In - 08/23/2018 3:04 PM PDT FOUR VIEWS RIGHT KNEE 08/23/2018 1:40 PM | | | | CLINICAL HISTORY: RIGHT KNEE PAIN | | | | COMPARISON: None available | | | | FINDINGS: The bones are well-mineralized and well aligned. No fracture or | | subluxation is evident. Joint spaces are maintained. No knee effusion or other | | soft tissue abnormality is evident. | | | | IMPRESSION - | | 1. UNREMARKABLE RADIOGRAPHIC APPEARANCE OF THE KNEES. | | | | Dictated and Signed by: Gonzalo Barragan MD | | Electronically signed: 08/23/2018 3:01 PM | + + + +---------+ + + | Performing | Address | City/State/Zipcode | Phone Number | | Organization | | | | + +---------+ + + | [facility] | | | | + +---------+ + + documented in this encounter Visit Diagnoses + + | Diagnosis | + + | Right knee pain, unspecified chronicity - Primary | + + documented in this encounter"
--- OUTSIDE RECORDS SUMMARY | ~2020-01-04 | XMS | Encounter Summary ---
Demographics + + + | Address | [address] | | | [place] [address] | + + + | Home Phone | | + + + | Preferred Language | Unknown | + + + | Marital Status | | + + + | Christian Affiliation | 1027 | + + + | Race | Unknown | + + + | Ethnic Group | Unknown | + + + Author + + + | Author | [facility] | | | and [place] | + + + | Organization | [facility] | | | [...] [place], | | | | | [place] [address] | | + + + + + | Ryan Vogt | ECON | Unknown | | + + + + + | Rob Vogt | ECON | Unknown | | + + + + + Care Team Providers + +------+ + | Care Children'S Service Worker Name | Role | Phone | + +------+ + | Abrahan Samaniego MD | PCP | | + +------+ + Reason for Visit + +--------+ + | Reason | Onset | Comments | | | Date | | + +--------+ + | Medication Related | 10/14/ | | | | 2019 | | + +--------+ + Encounter Details +--------+ + + + + | Date | Type | Department | Care Team | Description | +--------+ + + + + | 10/14/ | Telephone | [facility] | Cheryl Zee MD | Medication Related | | 2018 | | [facility] [place] | [address] [place] | | | | | ENDOCRINOLOGY [address] | [address] [place] | | | | | [address] [place] [address] | [address] | | | | | [place] | | | | | | [address] | | | | | | [phone] | | | +--------+ + + + [...] Miscellaneous Notes Telephone Encounter - Oliva Son, Handle Rounder Operator - 10/14/2018 1:36 PM PDTSpoke wit h patient she understands that the device comes from [facility] and medication from the [facility]. Patient understands the pharmacy dose not ship medication over the weekend due to erickson dling of this medication. I have also given patient [facility] web sight to watch videos on how to use devise. elephone Encounter - Oliva Son, Handle Rounder Operator - 10/14/2018 1:10 PM PD TSpoke with patient she needs us to call the pharmacy because they are sending vials of her medication instead of a Pen form. I called pharmacy they can send the prescription to patient in the cartage form but can not send the devise this will have to have a separate prescription sent to [facility] and they w ill send the devise to the patient. Pharmacist can send medication out on Wednesday for deliver by Wed to patient. I have called [facility] they are sending over the form so they can send devise to patient . Called patient no answer left a message to call back. elephone Encounter - Amanda Gupta 10/14/2018 11:51 AM PDTPatient called regarding medication that is due on Wednesday, she prefer s Epipen? Versus the vile. Please call patient to verify. She said it is urgent to contact p harmacy to get it on Wednesday. 11:5 2 AM PDTdocumented in this encounter Plan of [...] | | | | | | [place] [address] | | | | | | [phone] | | | | | | | | +--------+---------+ + + + | 09/03/ | Office | Endocrinology | Cheryl Zee MD | | | 2020 | Visit | | [address] | | | | | | [address] [place] | | | | | | [address] | | | | | | | | +--------+---------+ + + + documented as of this encounter Visit Diagnoses Not on filedocumented in this encounter"
--- OUTSIDE RECORDS SUMMARY | ~2020-01-04 | XMS | Encounter Summary ---
Demographics + + + | Address | [address] | | | [place] [address] | + + + | Home Phone [...] Author | [facility] | | | and [...] [place], | | | | | [place] [address] | | + + + + + | Ryan Morales | ECON | Unknown | | + + + + + | Rob Morales | ECON | Unknown | | + + + + + Care Team Providers + +------+ + | Care Poundmaster Name | Role | Phone | + +------+ + | Julisa Samaniego MD | PCP | | + +------+ + Reason for Visit + + + | Reason | Comments | + + + | Follow-up | | + + + Encounter Details +--------+---------+ + + + | Date | Type | Department | Care Team | Description | +--------+---------+ + + + | 06/27/ | Office | [facility] | Julisa Samaniego MD | Growth hormone | | 2016 | Visit | MEDICINE [address] | [address] [place] [address] | deficiency ([facility]) | | | | [address] [place], | [place] | (Primary Dx); | | | | [place] [address] | [address] | Shortness of breath; | | | | [phone] | | Preventative health | | | | | | care; Mechanical | | | | | | low back pain; | | | | | | Sciatica, | | | | | | unspecified | | | | | | laterality; Back | | | | | | pain of lumbar | | | | | | region with sciatica | +--------+---------+ + + + Social History [...] + + + | Blood Pressure | 126/70 | 06/27/2015 2:09 PM | | | | | PST | | + + + + + | Pulse | 77 | 06/27/2015 2:09 PM | | | | | PST | | + + + + + | Temperature | - | - | | + + + + + | Respiratory Rate | 14 | 06/27/2015 2:09 PM | | | | | PST | | + + + + + | Oxygen Saturation | 98% | 06/27/2015 2:09 PM | | | | | PST | | + + + + + | Inhaled Oxygen | - | - | | | Concentration | | | | + + + + + | Weight | 67.3 kg (148 lb 6.4 | 06/27/2015 2:09 PM | | | | oz) | PST | | + + + + + | Height | 160 cm (5' 3") | 06/27/2015 2:09 PM | | | | | PST | | + + + + + | Body Mass Index | 26.29 | 06/27/2015 2:09 PM | | | | | PST | | + + + + + documented in this encounter Progress Notes Julisa Samaniego MD - 06/27/2015 4:45 PM PST [facility] [address] [place] [address] OFFICE NOTE JULISA SAMANIEGO MD Patient: MONA MORALES Admitting: MR #: [id number] LOC: PT TYPE: Adm Date: 06/27/2015 : 1950 Mona is in clinic today for: 1. Concerns about growth hormone deficiency: Mona's notes are reviewed from Dr. Zee. 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 Mona has been on the fence about taking growth hormone for some time. She has been doing a lot of read ing about it and brings in several pages of printed out literature today regarding it. Mary martinez says that her energy is excellent. She has noticed that she seems to be getting more pu dgy around the waist. She denies that there are any problems with a past history of cancer . She is not excited about giving herself an injection every day and would eventually like t o retire, at which point she would lose her insurance and it would cost her significant mon ey out of pocket to get the growth hormone. 2. Shortness of breath: She says that she has intermittent shortness of breath that she feels is secondary to anxiety. Mona's has been through a leg amputation, as well as being deathly ill. He remains on dialysis. 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 She does sleep at [facility], probably about 6-7 hours. Again, her energy is quite good. She is feeling somewhat overwhelmed regarding his health issues, as well as her own. She denies depression, crying spells, or anhedonia. She finds great support going to her jew and through friends an d jew members. She walks about 1000 feet to get to her job and has no trouble with chest pain, palpitati ons, dyspnea on exertion. She also denies peripheral edema, orthopnea, PND, lightheadednes s, syncope, near syncope, exertional pain in the arms/jaws/shoulders/back and no exertiona l nausea, vomiting, or diaphoresis. 3. Low back pain: She has a history of mechanical low back pain, for which she sees mass age therapy. She needs to have a new massage therapy referral submitted. She has been hav ing pains, however, at night when she goes to bed and lies flat. The pain is quite severe and goes from her low back down to her buttocks and into the posterior lateral thighs and legs. She has found it helpful to put a large pillow under her knees while she lies on her back. She does not have this problem while she is walking during the day, particularly on her long walk up to the office. No change in bowel or bladder habits. PAST MEDICAL HISTORY, PROBLEM LIST, PAST SURGICAL HISTORY, CURRENT MEDICATIONS, and SOCIAL HISTORY: Are reviewed. Dr. Zee's note from [facility] Department of Endocrinology is reviewed. PHYSICAL EXAMINATION: VITAL SIGNS: Her blood pressure is 126/70, pulse is 77, respiratory rate 14. Oximetry is 98 percent on room air. GENERAL: Somewhat cushingoid female in no acute distress. HEENT: Sclerae are normal. Conjunctivae normal. Oropharynx normal. NECK: Supple. No masses. No adenopathy. No thyromegaly. CHEST: Clear to auscultation. No wheezes, rales, rhonchi. Normal effort. Normal moveme nt. CARDIAC: Regular rate and rhythm, without murmur, rub, gallop. No JVP, heave, lift. ABDOMEN: Soft. Nondistended. Nontender. No hepatosplenomegaly. EXTREMITIES: No clubbing, cyanosis, edema. AFFECT: Slightly anxious. ASSESSMENT AND PLAN: 1. Growth hormone deficiency. 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 There is controversy as to whether or not these patients should be tr eated. There is evidence to suggest growth hormone treatment in adults with acquired growt h hormone deficiency results in increased muscle mass and a decrease of body fat, improvem ent in exercise capacity, though not in muscle strength, improvement in bone mineral densit y in men but not women, and improvement in some parameters of cardiac function. There are, however, side effects potentially which can include arrhythmia, insulin resistance, tumor growth and others. In Up-To-Date under the category of "who should be treated?" this diff erence in opinion is highlighted. The editors of Up-To-Date state "for most patients with a dult-onset growth hormone deficiency, we suggest not taking growth hormone therapy, but pa tient values and preferences play an important role in the decision. We first discuss with each patient the potential benefits and risks of growth hormone therapy. We emphasize sandra t they are unlikely to experience a marked increase in energy from taking growth hormone, w hich is the reason many patients ask about it. Although we typically suggest that they no t take growth hormone therapy, we do treat if that is the patient's strong preference. Our approach differs from clinical guidelines of the Endocrine Society, which tends to fav or treating most adults with growth hormone deficiency. Our reluctance to recommend it for most patients who have growth hormone deficiency is that we consider the modest improvemen t in body composition and modest increase in bone mineral density (in men) insufficient to justify the very high cost and the burden of daily injections." She says that she has had thorough discussions with Dr. Zee and well understands the ris ks and benefits of the medication. After thorough discussion today with shared decision-kerri harper, Mona is electing to stay off of the growth hormone therapy at this time. 2. Shortness of breath: She has a normal pulmonary and cardiovascular exam today. A. Chest x-ray. B. CBC to rule out anemia. C. She may very well have some baseline anxiety. 3. Mechanical low back pain: She has what sounds like sciatica when she is lying flat in bed. X-rays of her back are ordered. New referral for massage therapy put in. More than 30 minutes was spent face to face with Mona, which more than 50 percent was in discussion and counseling. JULISA SAMANIEGO MD Dictated by JULISA SAMANIEGO MD 06/27/2015 16:45:19 Transcribed on 06/28/2015 09:26:23 by job# [id number] Confirmation #: [id number] cc: JULISA SAMANIEGO MD Julisa Lambert MD - 06/27/2015 4:45 PM [id number] signed by Julisa Samaniego MD a t 06/27/2015 4:45 PM PSTdocumented in this encounter Plan of Treatment +--------+---------+ + + + | Date | Type | Specialty | Care Team | Description | +--------+---------+ + + + | 04/29/ | Office | Internal Medicine | Julisa Samaniego MD | | | 2019 | Visit | | [address] [facility] | | | | | | [place] | | | | | | [id number] | | | | | | | | +--------+---------+ + + + | 07/25/ | Office | Cardiology | Renetta, | | | 2020 | Visit | | [facility] [address] | | | | | | [place], | | | | | | [place] [address] | | | | | | [phone] | | | | | | | | +--------+---------+ + + + | 09/03/ | Office | Endocrinology | Cheryl Zee MD | | | 2020 | Visit | | [address] | | | | | | [address] [place] | | | | | | [id number] | | | | | | | | +--------+---------+ + + + documented as of this encounter Results XR Chest PA and Lateral (06/27/2015 3:14 PM PST) + + | Specimen | + + | | + + + + + | Narrative | Performed At | + + + | XR CHEST PA AND LATERAL. 06/27/2015 3:04 PM HISTORY: SOB . | [facility] | | COMPARISON: None available. FINDINGS: Heart size and | [facility] | | mediastinal contours are within normal limits. There is an | [facility] | | approximately 6 mm nodular density in the left midlung zone that | - IMAGING | | projects at the level of the left posterior lateral eighth rib . | | | Right lung is clear. No pleural effusion or pneumothorax. | | | Surgical clips seen in the right upper quadrant, suggestive of | | | prior cholecystectomy. No acute osseous or soft tissue abnormalities. | | | IMPRESSION - Approximately 6 mm nodular density projecting in | | | the left midlung zone that was not seen on prior x-rays. If | | | clinically indicated, CT of the chest may be helpful for further | | | evaluation. No focal consolidation to suggest pneumonia. Dictated | | | and Signed by: Reji Kelley MD Electronically signed: | | | 06/27/2015 7:08 PM | | + + + + + | Procedure Note | + + | Vishnu, Rad Results In - 06/27/2015 7:11 PM PST XR CHEST PA AND LATERAL. 06/27/2015 | | 3:04 PMHISTORY: SOB . COMPARISON: None available.FINDINGS:Heart size and mediastinal | | contours are within normal limits. There is anapproximately 6 mm nodular density in the | | left midlung zone that projects at thelevel of the left posterior lateral eighth rib . | | Right lung is clear. Nopleural effusion or pneumothorax. Surgical clips seen in the | | right upperquadrant, suggestive of prior cholecystectomy. No acute osseous or soft | | tissueabnormalities.IMPRESSION -Approximately 6 mm nodular density projecting in the | | left midlung zone that wasnot seen on prior x-rays. If clinically indicated, CT of the | | chest may behelpful for further evaluation.No focal consolidation to suggest | | pneumonia.Dictated and Signed by: Reji Kelley MD Electronically signed: 06/27/2015 | | 7:08 PM | |quadrant, suggestive of prior cholecystectomy. No acute osseous or soft tissue | |abnormalities. | | | | | |IMPRESSION - | |Approximately 6 mm nodular density projecting in the left midlung zone that was | |not seen on prior x-rays. If clinically indicated, CT of the chest may be | |helpful for further evaluation. | |No focal consolidation to suggest pneumonia. | | | |Dictated and Signed by: Reji Kelley MD | | Electronically signed: 06/27/2015 7:08 PM | + + + + + + + | Performing | Address | City/State/Zipcode | Phone Number | | Organization | | | | + + + + + | [facility] | [address] | [place] | [phone] | | [facility] | | [address] | | | - IMAGING | | | | + + + + + XR Lumbar Spine Complete With Bending 6+ (06/27/2015 3:14 PM PST) + + | Specimen | + + | | + + + + + | Narrative | Performed At | + + + | XR LUMBAR SPINE COMPLETE INCLUDING BENDING 6 + VW. 06/27/2015 3:04 | [facility] | | PM HISTORY: lumbar pain with bilateral radic . COMPARISON: | [facility] | | None available. FINDINGS: Mild levoconvex curvature centered at [facility] | | the level of L4. Vertebral body alignment is otherwise maintained | - IMAGING | | on upright neutral, flexion, and extension views. There is | | | degenerative disc disease, greatest at the level of L4-5, with | | | endplate sclerotic change and osteophyte formation at that level. | | | There is moderate-severe loss of disc height at L4-5. Vertebral | | | body heights are maintained. Facet degenerative change in the lower | | | lumbar spine. No pars defects seen on the oblique views. | | | Surgical clips seen in the right upper quadrant, suggestive of | | | prior cholecystectomy. No acute abnormality of the visualized | | | portions of the pelvis. IMPRESSION - Degenerative disc | | | disease, greatest at the level of L4-5. Facet degenerative | | | hypertrophy in the lower lumbar spine. No evidence of | | | spondylolisthesis. Dictated and Signed by: Reji Kelley MD | | | Electronically signed: 06/27/2015 7:11 PM | | + + + + + | Procedure Note | + + | Vishnu, Rad Results In - 06/27/2015 7:14 PM PST XR LUMBAR SPINE COMPLETE INCLUDING | | BENDING 6 + VW. 06/27/2015 3:04 PMHISTORY: lumbar pain with bilateral radic . | | COMPARISON: None available.FINDINGS:Mild levoconvex curvature centered at the level of | | L4. Vertebral body alignmentis otherwise maintained on upright neutral, flexion, and | | extension views. Thereis degenerative disc disease, greatest at the level of L4-5, with | | endplatesclerotic change and osteophyte formation at that level. There | | ismoderate-severe loss of disc height at L4-5. Vertebral body heights aremaintained. | | Facet degenerative change in the lower lumbar spine. No parsdefects seen on the oblique | | views. Surgical clips seen in the right upperquadrant, suggestive of prior | | cholecystectomy. No acute abnormality of thevisualized portions of the pelvis. | | IMPRESSION -Degenerative disc disease, greatest at the level of L4-5. Facet | | degenerativehypertrophy in the lower lumbar spine.No evidence of | | spondylolisthesis.Dictated and Signed by: Reji Kelley MD Electronically signed: | | 06/27/2015 7:11 PM | |quadrant, suggestive of prior cholecystectomy. No acute abnormality of the | |visualized portions of the pelvis. | | | | | |IMPRESSION - | |Degenerative disc disease, greatest at the level of L4-5. Facet degenerative | |hypertrophy in the lower lumbar spine. | |No evidence of spondylolisthesis. | | | |Dictated and Signed by: Reji Kelley MD | | Electronically signed: 06/27/2015 7:11 PM | + + + + + + + | Performing | Address | City/State/Zipcode | Phone Number | | Organization | | | | + + + + + | [facility] | [address] 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
--- OUTSIDE RECORDS SUMMARY | ~2020-01-04 | XMS | Encounter Summary ---
Demographics + + + | Address | [address] | | | [place] [address] | + + + | Home Phone | | + + + | Preferred Language | Unknown | + + + | Marital Status | | + + + | Gnosticist Affiliation | 1027 | + + + | Race | Unknown | + + + | Ethnic Group | Unknown | + + + Author + + + | Author | [facility] | | | and [place] | + + + | Organization | [facility] | | | [...] [place], | | | | | [place] [address] | | + + + + + | Ryan Vogt | ECON | Unknown | | + + + + + | Rob Vogt | ECON | Unknown | | + + + + + Care Team Providers + +------+ + | Care Hat Finishing Materials Preparer Name | Role | Phone | + +------+ + PCP | Unavailable | + +------+ + Encounter Details +--------+ + + + + | Date | Type | Department | Care Team | Description | +--------+ + + + + | 02/10/ | Hospital | [facility] | Ifeanyi Romo, | | | 2005 | Encounter | [facility] | [address] | | | | | [address] | [place] | | | | | [place] | [address] | | | | | [address] | | | | | | [phone] | | | +--------+ + + + [...] [place] | | | | | | [address] | | | | | | | | +--------+---------+ + + + | 07/25/ | Office | Cardiology | Renetta | | | 2020 | Visit | | [facility] [address] | | | | | | [place], | | | | | | [place] [address] | | | | | | [phone] | | | | | | | | +--------+---------+ + + + | 09/03/ | Office | Endocrinology | Cheryl Zee MD | | | 2020 | Visit | | [address] | | | | | | [address] [place] | | | | | | [address] | | | | | | | | +--------+---------+ + + + documented as of this encounter Visit Diagnoses Not on filedocumented in this encounter"
--- OUTSIDE RECORDS SUMMARY | ~2020-01-04 | XMS | Encounter Summary ---
Demographics + + + | Address | [address] | | | [place] [address] | + + + | Home Phone | | + + + | Preferred Language | Unknown | + + + | Marital Status | | + + + | Amish Affiliation | 1027 | + + + | Race | Unknown | + + + | Ethnic Group | Unknown | + + + Author + + + | Author | [facility] | | | and [place] | + + + | Organization | [facility] | | [...] [place], | | | | | [place] [address] | | + + + + + | Ryan Vogt | ECON | Unknown | | + + + + + | Rob Vogt | ECON | Unknown | | + + + + + Care Team Providers + +------+ + | Care Radiology Transcriptionist Name | Role | Phone | + +------+ + | Abrahan Samaniego MD | PCP | | + +------+ + Encounter Details +--------+ + + + + | Date | Type | Department | Care Team | Description | +--------+ + + + + | 02/20/ | Orders Only | [facility] | Cheryl Zee MD | Hypopituitarism | | 2019 | | [facility] | [address] [place] | (HCC) (Primary Dx) | | | | ENDOCRINOLOGY [address] | [address] [place] | | | | [address] | [address] | | | | | [place] | | | | | | [address] | | | | | | [phone] | | | +--------+ + + + [...] | | | | | | [place] [address] | | | | | | [phone] | | | | | | | | +--------+---------+ + + + | 09/03/ | Office | Endocrinology | Cheryl Zee MD | | | 2020 | Visit | | [address] | | | | | | [address] [place] | | | | | | [address] | | | | | | | | +--------+---------+ + + + documented as of this encounter Visit Diagnoses + + | Diagnosis | + + | Hypopituitarism (HCC) - Primary Panhypopituitarism | + + documented in this encounter"
--- OUTSIDE RECORDS SUMMARY | ~2020-01-04 | XMS | Encounter Summary ---
Demographics + + + | Address | [address] | | | [place] [address] | + + + | Home Phone | | + + + | Preferred Language | Unknown | + + + | Marital Status | | + + + | Latter Day Affiliation | 1027 | + + + | Race | Unknown | + + + | Ethnic Group | Unknown | + + + Author + + + | Author | [facility] | | | and [place] | + + + | Organization | [facility] | | | [...] [place], | | | | | [place] [address] | | + + + + + | Ryan Vogt | ECON | Unknown | | + + + + + | Rob Vogt | ECON | Unknown | | + + + + + Care Team Providers + +------+ + | Care Electrical Solderer Name | Role | Phone | + +------+ + | Abrahan Samaniego MD | PCP | | + +------+ + Encounter Details +--------+ + + + + | Date | Type | Department | Care Team | Description | +--------+ + + + + | 09/04/ | Documentati | [facility] | Matthew Bedoya | | | 2014 | on | [facility] | G, PT [address] | | | | | OP [address] | [place] | | | | | [place] | [address] | | | | | [address] | | | | | | [phone] | | | +--------+ + + + [...] encounter Progress Notes Matthew Bedoya, PT - 09/04/2014 4:25 [facility] [address] [place] [address] Cancellation/No Show Date: 09/04/2014 Patient Information Patient Name: Oliva Vogt Date of : 1950 Age: 64 y.o. Reason for missed visit: no show Phone call placed: yes Plan: left a message requesting for patient to reschedule for one more or to let us know if she felt she is ready for d/c. Electronically signed by: Matthew Bedoya, PT, 09/04/2014 16:25 Patient Name: Oliva Vogt/: 1950/ ; documented in th is encounter Plan of Treatment +--------+---------+ + + + | Date | Type | Specialty | Care Team | Description | +--------+---------+ + + + | 04/29/ | Office | Internal Medicine | Abrahan Samaniego MD | | | 2019 | Visit | | [address] [place] [address] | | | | | | [place] | | | | | | [address] | | | | | | | | +--------+---------+ + + + | 07/25/ | Office | Cardiology | Renetta, | | | 2020 | Visit | | [facility] [address] | | | | | | [place] | | | | | | [place] [address] | | | | | | [phone] | | | | | | | | +--------+---------+ + + + | 09/03/ | Office | Endocrinology | Cheryl Zee MD | | | 2020 | Visit | | [address] [address] | | | | | | [address] [place] | | | | | | [address] | | | | | | | | +--------+---------+ + + + documented as of this encounter Visit Diagnoses Not on filedocumented in this encounter"
--- OUTSIDE RECORDS SUMMARY | ~2020-01-04 | XMS | Encounter Summary ---
Demographics + + + | Address | [address] | | | [place] [address] | + + + | Home Phone | | + + + | Preferred Language | Unknown | + + + | Marital Status | | + + + | Druze Affiliation | 1027 | + + + | Race | Unknown | + + + | Ethnic Group | Unknown | + + + Author + + + | Author | [facility] | | | and [place] | + + + | Organization | [facility] | | [...] [place], | | | | | [place] [address] | | + + + + + | Ryan Vogt | ECON | Unknown | | + + + + + | Rob Vogt | ECON | Unknown | | + + + + + Care Team Providers + +------+ + | Care Junior Data Analyst Name | Role | Phone | + [...] Closed | | Radiology | Diagnoses | Samaniego, | [facility] | | | | | Edema, | Abrahan Cortez MD | [address] | | | | | unspecified | [address] | [place], | | | | | type | STREET | [place] | | | | | Procedures | [place], | [address] | | | | | ECHO | [place] [address] | Phone: | | | | | Complete | Phone: | [phone] | | | | | | [phone] | Fax: | | | | | | Fax: | [phone] | | | | | | [phone] | | +--------+--------+ + + + + Reason for Visit + + + | Reason | Comments | + + + | Joint Swelling | bilateral, not sure when started | + + + Encounter Details +--------+---------+ + + + | Date | Type | Department | Care Team | Description | +--------+---------+ + + + | 11/24/ | Office | [facility] | Abrahan Samaniego MD | Edema, unspecified | | 2019 | Visit | MEDICINE [address] [place] [address] | [address] [place] [address] | type (Primary Dx) | | | | [place], | [place] | | | | | [place] [address] | [id number] | | | | | [phone] | | | +--------+---------+ + + + [...] + + + | Blood Pressure | 128/68 | 11/24/2018 3:07 PM | | | | | PDT | | + + + + + | Pulse | 78 | 11/24/2018 3:07 PM | | | | | PDT | | + + + + + | Temperature | 36.3 C (97.3 F) | 11/24/2018 3:07 PM | | | | | PDT | | + + + + + | Respiratory Rate | 18 | 11/24/2018 3:07 PM | | | | | PDT | | + + + + + | Oxygen Saturation | 98% | 11/24/2018 3:07 PM | | | | | PDT | | + + + + + | Inhaled Oxygen | - | - | | | Concentration | | | | + + + + + | Weight | 71.4 kg (157 lb 6.5 | 11/24/2018 3:07 PM | | | | oz) | PDT | | + + + + + | Height | - | - | | + + + + + | Body Mass Index | 27.45 | 11/10/2018 10:59 AM | | | | | PDT | | + + + + + documented in this encounter Progress Notes Abrahan Samaniego MD - 11/24/2018 3:15 PM PDT 11/24/2018 Mona Vogt 1950 History: Mona Vogt is a 68 y.o. female here for : EDEMA: She is now on prednisone 6 mg per day because she was getting volume depleted so her endo upped her to 6 mg prednisone daily from 5 mg daily. She also started on Somatropin She also notes that she was started on metoprolol through the ER. She had gone to the ER b ecause of chest heaviness. They document that Dr Alejandro asked them to start her on Toprol XL 2 5 mg daily. She has been taking it. Since starting,. She has had less energy. She feels "l magda I am walking in mud" but she has had no further chest discomfort. Current Outpatient Medications Medication Sig Dispense Refill atorvaSTATin (LIPITOR) 10 mg tablet take 1 tablet by mouth AT NIGHT 90 tablet 3 cholecalciferol (CHOLECALCIFEROL) 1000 units TABS Take 1 tablet by mouth Daily. levothyroxine (SYNTHROID) 100 mcg tablet Take 1 tablet by mouth every morning (before b reakfast). 90 tablet 4 metoprolol succinate (TOPROL-XL) 25 mg 24 hr tablet Take 1 tablet by mouth Daily. 30 ta blet 0 Multiple Vitamins-Minerals (WOMENS MULTIVITAMIN PLUS) TABS Take [...] 1 Somatropin (OMNITROPE) 5.8 MG SOLR Inject 0.2 mg under the skin Daily. 5 each 2 No current facility-administered medications for this visit. Allergies Allergen Reactions Succinylcholine Chloride Other (See Comments) Hard to wake up Review of Systems: No chest pain, palpitations, shortness of breath, orthopnea, PND, lightheadedness, syncope, near syncope, exertional pain in the arm/jaw/shoulder/back, peripheral edema. Denies hemoptysis, productive cough, wheezing, shortness of breath, dyspnea on exertion. Physical Exam: BP 128/68 | Pulse 78 | Temp 36.3 C (97.3 F) (Temporal) | Resp 18 | Wt 71.4 kg (157 lb 6.5 oz) | SpO2 98% | BMI 27.45 kg/m GEN: No acute distress. Cushingoid HEENT:EOMI, OP normal CHEST: Clear to auscultation. No wheezes, rales, rhonchi. Normal effort and movement CAR: Rhythm:regular Murmur:no Jese:no JVP:no Pulses:normal radial and carotid ABD: non-distended, non-tender. No hepatosplenomegaly EXT: No clubbing, cyanosis, with 1 edema Assessment: Plan 1. 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 She is on meds which could cause the edema including the prednisone and HGH. She did have some chest pressure. She is on toprol which I think is causing the to feel like she is "walking in mud". No ang linh now. Will check the BNP and echo She is already scheduled with cardiology. Will defer to them on need for stress test. No diuretic started today. If she has edema related to the medication and she has a normal BNP and EF, it is so min that I would not treat except with compression stocking. More than 15 minutes spent face to face with patient of which over 50% was in counseling documented in this enc ounter Plan [...] | 2020 | Visit | | [facility] [address] | | | | | | [place] | | | | | | [place] [address] | | | | | | [phone] | | | | | | | | +--------+---------+ + + + | 09/03/ | Office | Endocrinology | Cheryl Zee MD | | | 2020 | Visit | | [address] [place] | | | | | | [address] [place] | | | | | | [address] | | | | | | | | +--------+---------+ + + + documented as of this encounter Results ECHO Complete (12/20/2018 2:44 PM PDT) + +---------+ + + + | Component | Value | Ref Range | Performed | Pathologist | | | | | At | Signature | + +---------+ + + + | Patient | 158 lbs | | [facility] | | | Weight | | | | | | (lbs) | | | | | + +---------+ + + + | Patient | 5'3 | | [facility] | | | Height | | | | | + +---------+ + + + | LVIDd | 3.28 | cm | [facility] | | + +---------+ + + + | FS | 42 | % | [facility] | | + +---------+ + + + | LA volume | 43.34 | mL | [facility] | | + +---------+ + + + | Aortic arch | 2.24 | cm | [facility] | | + +---------+ + + + | AV mean | 3.84 | mmHg | [facility] | | | gradient | | | | | + +---------+ + + + | IVRT | 114.19 | msec | [facility] | | + +---------+ + + + | LVOT peak | 124.05 | cm/s | [facility] | | | melina | | | | | + +---------+ + + + | LVOT peak | 22.27 | cm | [facility] | | | VTI | | | | | + +---------+ + + + | AV peak melina | 150.33 | cm/s | [facility] | | + +---------+ + + + | AV VTI | 27.68 | cm | [facility] | | + +---------+ + + + | AV peak | 9.04 | mmHg | [facility] | | | gradient | | | | | + +---------+ + + + | LA Volume | 25 | mL/m2 | [facility] | | | Index | | | | | + +---------+ + + + | AV LVOT | 6.16 | mmHg | [facility] | | | Peak | | | | | | Gradient | | | | | + +---------+ + + + | AV LVOT | 2.72 | mmHg | [facility] | | | Mean | | | | | | Gradient | | | | | + +---------+ + + + | TR Peak | 17 | mmHg | [facility] | | | Gradient | | | | | + +---------+ + + + | TR Velocity | 205.01 | cm | [facility] | | + +---------+ + + + | LV | 7.35 | cm | [facility] | | | Diastolic | | | | | | Length 4C | | | | | + +---------+ + + + | LV | 62 | % | [facility] | | | Avila's | | | | | | Biplane EF | | | | | + +---------+ + + + | LV ED | 55.51 | ml | [facility] | | | Volume | | | | | | (Avila's) | | | | | + +---------+ + + + | LV ED | 32 | ml/m2 | [facility] | | | Volume | | | | | | Index | | | | | + +---------+ + + + | LV ES | 20.65 | ml | [facility] | | | Volume | | | | | + +---------+ + + + | LVOT Mean | 73.97 | cm/s | [facility] | | | Velocity | | | | | + +---------+ + + + | MV E' | 6 | cm/s | [facility] | | | Septal | | | | | | Velocity | | | | | + +---------+ + + + | MV | 273.28 | cm/s2 | [facility] | | | Deceleratio | | | | | | n [place] | | | | | + +---------+ + + + | MV | 239.13 | msec | [facility] | | | Deceleratio | | | | | | n Time | | | | | + +---------+ + + + | MV E/A | 0.64 | | [facility] | | | Ratio | | | | | + +---------+ + + + | MV Peak | 102.56 | cm/s | [facility] | | | A-Wave | | | | | + +---------+ + + + | MV Peak | 65.35 | cm/s | [facility] | | | E-Wave | | | | | + +---------+ + + + | AV Mean | 88.9 | cm/s | [facility] | | | Velocity | | | | | + +---------+ + + + | LA/Aorta | 1.39 | | [facility] | | | Ratio | | | | | + +---------+ + + + | LA Area | 15.14 | cm2 | [facility] | | + +---------+ + + + | MV E/E | 10.89 | | [facility] | | | SEPTAL | | | | | + +---------+ + + + | LA Major | 0.2768 | cm | [facility] | | + +---------+ + + + | LV ES | 12 | ml/m2 | [facility] | | | Volume | | | | | | Index | | | | | + +---------+ + + + | Aortic Root | 2.52 | cm | [facility] | | | Diameter | | | | | + +---------+ + + + | IVS | 0.92 | cm | [facility] | | | Diastolic | | | | | | Thickness | | | | | | MM | | | | | + +---------+ + + + | LVPW | 0.93 | cm | [facility] | | | Diastolic | | | | | | Thickness | | | | | | MM | | | | | + +---------+ + + + | IVS | 1.02 | cm | [facility] | | | Systolic | | | | | | Thickness | | | | | | MM | | | | | + +---------+ + + + | LV Systolic | 1.9 | cm | [facility] | | | Diameter | | | | | | MM | | | | | + +---------+ + + + | LVPW | 1.53 | cm | [facility] | | | Systolic | | | | | | Thickness | | | | | | MM | | | | | + +---------+ + + + | AV Cusp | 1.55 | cm | [facility] | | | Seperation | | | | | | MM | | | | | + +---------+ + + + | LA Systolic | 3.5 | cm | [facility] | | | Diameter | | | | | | MM | | | | | + +---------+ + + + | TAPSE | 2.3 | cm | [facility] | | + +---------+ + + + | LVEF-TTE | 62 | | [facility] | | | TRANSTHORAC | | | | | | IC ECHO | | | | | + +---------+ + + + + + | Specimen | + + | | + + + + --+ | Narrative | Performed At | + + --+ | Transthoracic | [facility] | | Echocardiography Report (TTE) Demographics Patient Name CARMEN | | | MONA Room Number RENETTA Patient | | | Number [id number] Date of Study 12/20/2018 | | | Visit Number [id number] | | | Referring Physician CHUYITA Cortez Number Date of | | | 1950 [employer] Worker CONCHA GAUTHIER Age | | | 68 year(s) Interpreting | | | MINH STEIN MD | | | Manager Hematology Gender Female 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 Procedure | | | dateDate: 12/20/2018Start: 01:49 PM Technical Quality: Adequate | | | visualizationStudy Location: Echo LabIndications: Edema | | | 782.3/R60.0.Patient Status: RoutineHeight: 63 inchesWeight: 158 | | | poundsBSA: 1.75 m^2BMI: 27.99 kg/m^2 ConclusionsSummaryLeft ventricle | | | is normal in size and function. Ejection fraction isestimated at | | | 62%.There is grade 1 LV diastolic dysfunction.Mildly thickened mitral | | | valve with trace insufficiency.Structurally normal tricuspid valve | | | with mild insufficiency and peakvelocity consistent with normal | | | pulmonary pressures. | | | Signature | | | | | | PM | | | -------- FindingsMitral ValveMildly thickened mitral valve with trace | | | insufficiency.Aortic ValveAortic valve is trileaflet without | | | significant stenosis or regurgitation.Tricuspid ValveStructurally | | | normal tricuspid valve with mild insufficiency and peakvelocity | | | consistent with normal pulmonary pressures.Pulmonic ValveNormal | | | pulmonic valve structure and function. Normal pulmonary valve andRVOT | | | flow by color and Doppler flow imaging.Left AtriumNormal left atrial | | | size.Left VentricleLeft ventricle is normal in size and function. | | | Ejection fraction isestimated at 62%.There is grade 1 LV diastolic | | | dysfunction.Right AtriumNormal right atrial size.Right VentricleNormal | | | right ventricular size.Right ventricle global systolic function is | | | normal.TAPSE = 2.3 cm.Pericardial EffusionNo evidence of pericardial | | | effusion.Pleural EffusionNo evidence of pleural | | | effusion.MiscellaneousMeasurements and calculations provided in the | | | report sections maybeincomplete. Additional m-mode, 2D, Doppler, | | | Doppler tissue, strain, andother hemodynamic assessments performed and | | | documented within the imageviewer. Valves Mitral Valve Peak E-Wave: | | | 65.35 cm/s Peak A-Wave: 102.56 cm/s Tissue Doppler Septal e' | | | Velocity: 6.00 cm/s Septal E/e' Ratio: Aortic Valve Peak Velocity: | | | 150.33 cm/s Mean Gradient: 3.84 mmHg Peak Gradient: | | | 9.04 mmHg Tricuspid Valve TR Velocity: 205.01 cm/s LVOT Peak | | | Velocity: 124.05 cm/s Structures Left Atrium LA A/P Dimension: 3.5 | | | cm LA Area: 15.14 cm^2 LA/Aorta:1.39 | | | LA Volume: 43.34 ml LA Vol/BSA | | | Index: 25 mL/m^2 LA Major:0.2768 Left Ventricle Diastolic Dimension: | | | 3.28 cm Systolic Dimension: 1.9 cm Septum Diastolic: 0.92 | | | cm PW Diastolic: 0.93 cm EF Ritfhvbms11% EF Calculated: 62% Right | | | Ventrical TAPSE: 2.3 cm Miscellaneous Aorta Aortic Root: 2.52 cm | | |Mitral Valve | | |Mildly thickened mitral valve with trace insufficiency. | | |Aortic Valve | | |Aortic valve is trileaflet without significant stenosis or regurgitation. | | |Tricuspid Valve | | |Structurally normal tricuspid valve with mild insufficiency and peak | | |velocity consistent with normal pulmonary pressures. | | |Pulmonic Valve | | |Normal pulmonic valve structure and function. Normal pulmonary valve and | | |RVOT flow by color and Doppler flow imaging. | | |Left Atrium | | |Normal left atrial size. | | |Left Ventricle | | |Left ventricle is normal in size and function. Ejection fraction is | | |estimated at 62%. | | |There is grade 1 LV diastolic dysfunction. | | |Right Atrium | | |Normal right atrial size. | | |Right Ventricle | | |Normal right ventricular size. | | |Right ventricle global systolic function is normal. | | |TAPSE = 2.3 cm. | | |Pericardial Effusion | | |No evidence of pericardial effusion. | | |Pleural Effusion | | |No evidence of pleural effusion. | | |Miscellaneous | | |Measurements and calculations provided in the report sections maybe | | |incomplete. Additional m-mode, 2D, Doppler, Doppler tissue, strain, and | | |other hemodynamic assessments performed and documented within the image | | |viewer. | | | | | |Valves | | | | | | Mitral Valve | | | | | | Peak E-Wave: 65.35 cm/s | | | Peak A-Wave: 102.56 cm/s | | | | | | Tissue Doppler | | | | | | Septal e' Velocity: 6.00 cm/s | | | Septal E/e' Ratio: | | | | | | Aortic Valve | | | | | | Peak Velocity: 150.33 cm/s Mean Gradient: 3.84 mmHg | | | Peak Gradient: 9.04 mmHg | | | | | | Tricuspid Valve | | | | | | TR Velocity: 205.01 cm/s | | | | | | LVOT | | | | | | Peak Velocity: 124.05 cm/s | | | | | |Structures | | | | | | Left Atrium | | | | | | LA A/P Dimension: 3.5 cm LA Area: 15.14 cm^2 | | | LA/Aorta:1.39 LA Volume: 43.34 ml | | | LA Vol/BSA Index: 25 mL/m^2 | | | LA Major:0.2768 | | | | | | Left Ventricle | | | | | | Diastolic Dimension: 3.28 cm Systolic Dimension: 1.9 cm | | | Septum Diastolic: 0.92 cm | | | PW Diastolic: 0.93 cm | | | EF Suspy[place]ke02% | | | EF Calculated: 62% | | | | | | Right Ventrical | | | | | | TAPSE: 2.3 cm | | | | | | Miscellaneous | | | | | | Aorta | | | | | | Aortic Root: 2.52 cm | | | | | + + --+ + + | Procedure Note | + + | Vishnu, Rad Results In - 12/20/2018 5:55 PM PDT Transthoracic Echocardiography Report | | (TTE) Demographics Patient Name CARMEN DUNN Room Number RENETTA | | Patient Number [id number] Date of Study 12/20/2018 Visit Number | | [id number] Referring Physician CHUYITA Cortez | | Number Date of 1950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 Ejection fraction isestimated at 62%.There is grade 1 LV | | diastolic dysfunction.Mildly thickened mitral valve with trace | | insufficiency.Structurally normal tricuspid valve with mild insufficiency and | | peakvelocity consistent with normal pulmonary | | pressures.Signature | | ------- | | 05:55 | | PM FindingsMi | | tral ValveMildly thickened mitral valve with trace insufficiency.Aortic ValveAortic | | valve is trileaflet without significant stenosis or regurgitation.Tricuspid | | ValveStructurally normal tricuspid valve with mild insufficiency and peakvelocity | | consistent with normal pulmonary pressures.Pulmonic ValveNormal pulmonic valve structure | | and function. Normal pulmonary valve andRVOT flow by color and Doppler flow | | imaging.Left AtriumNormal left atrial size.Left VentricleLeft ventricle is normal in | | size and function. Ejection fraction isestimated at 62%.There is grade 1 LV diastolic | | dysfunction.Right AtriumNormal right atrial size.Right VentricleNormal right ventricular | | size.Right ventricle global systolic function is normal.TAPSE = 2.3 cm.Pericardial | | EffusionNo evidence of pericardial effusion.Pleural EffusionNo evidence of pleural | | effusion.MiscellaneousMeasurements and calculations provided in the report sections | | maybeincomplete. Additional m-mode, 2D, Doppler, Doppler tissue, strain, andother | | hemodynamic assessments performed and documented within the imageviewer.Valves Mitral | | Valve Peak E-Wave: 65.35 cm/s Peak A-Wave: 102.56 cm/s Tissue Doppler Septal e' | | Velocity: 6.00 cm/s Septal E/e' Ratio: Aortic Valve Peak Velocity: 150.33 cm/s | | Mean Gradient: 3.84 mmHg Peak Gradient: 9.04 mmHg Tricuspid Valve TR Velocity: 205.01 | | cm/s LVOT Peak Velocity: 124.05 cm/sStructures Left Atrium LA A/P Dimension: 3.5 cm | | LA Area: 15.14 cm^2 LA/Aorta:1.39 LA Volume: | | 43.34 ml LA Vol/BSA Index: 25 mL/m^2 LA Major:0.2768 Left Ventricle Diastolic Dimension: | | 3.28 cm Systolic Dimension: 1.9 cm Septum Diastolic: 0.92 cm PW Diastolic: 0.93 | | cm EF Vsmwpzrmb21% EF Calculated: 62% Right Ventrical TAPSE: 2.3 cm Miscellaneous Aorta | | Aortic Root: 2.52 cm | |There is grade 1 LV diastolic dysfunction. | |Mildly thickened mitral valve with trace insufficiency. | |Structurally normal tricuspid valve with mild insufficiency and peak | |velocity consistent with normal pulmonary pressures. | | | |Signature | | | | Electronically signed by MINH STEIN MD(Interpreting physician) on | | 12/20/2018 05:55 PM | | | | | |Findings | |Mitral Valve | |Mildly thickened mitral valve with trace insufficiency. | |Aortic Valve | |Aortic valve is trileaflet without significant stenosis or regurgitation. | |Tricuspid Valve | |Structurally normal tricuspid valve with mild insufficiency and peak | |velocity consistent with normal pulmonary pressures. | |Pulmonic Valve | |Normal pulmonic valve structure and function. Normal pulmonary valve and | |RVOT flow by color and Doppler flow imaging. | |Left Atrium | |Normal left atrial size. | |Left Ventricle | |Left ventricle is normal in size and function. Ejection fraction is | |estimated at 62%. | |There is grade 1 LV diastolic dysfunction. | |Right Atrium | |Normal right atrial size. | |Right Ventricle | |Normal right ventricular size. | |Right ventricle global systolic function is normal. | |TAPSE = 2.3 cm. | |Pericardial Effusion | |No evidence of pericardial effusion. | |Pleural Effusion | |No evidence of pleural effusion. | |Miscellaneous | |Measurements and calculations provided in the report sections maybe | |incomplete. Additional m-mode, 2D, Doppler, Doppler tissue, strain, and | |other hemodynamic assessments performed and documented within the image | |viewer. | | | |Valves | | | | Mitral Valve | | | | Peak E-Wave: 65.35 cm/s | | Peak A-Wave: 102.56 cm/s | | | | Tissue Doppler | | | | Septal e' Velocity: 6.00 cm/s | | Septal E/e' Ratio: | | | | Aortic Valve | | | | Peak Velocity: 150.33 cm/s Mean Gradient: 3.84 mmHg | | Peak Gradient: 9.04 mmHg | | | | Tricuspid Valve | | | | TR Velocity: 205.01 cm/s | | | | LVOT | | | | Peak Velocity: 124.05 cm/s | | | |Structures | | | | Left Atrium | | | | LA A/P Dimension: 3.5 cm LA Area: 15.14 cm^2 | | LA/Aorta:1.39 LA Volume: 43.34 ml | | LA Vol/BSA Index: 25 mL/m^2 | | LA Major:0.2768 | | | | Left Ventricle | | | | Diastolic Dimension: 3.28 cm Systolic Dimension: 1.9 cm | | Septum Diastolic: 0.92 cm | | PW Diastolic: 0.93 cm | | EF Ytsedkznb43% | | EF Calculated: 62% | | | | Right Ventrical | | | | TAPSE: 2.3 cm | | | | Miscellaneous | | | | Aorta | | | | Aortic Root: 2.52 cm | + + + +---------+ + + | Performing | Address | City/State/Zipcode | Phone Number | | Organization | | | | + +---------+ + + | [facility] | | | | + +---------+ + + B Type Natriuretic Peptide (11/24/2018 3:45 PM PDT) + +-------+ + + + | Component | Value | Ref Range | Performed | Pathologist | | | | | At | Signature | + +-------+ + + + | BNP | 38 | <100 pg/mL | [facility] | | | | | [...] ST. | [address] | [place], [place] | [phone] | | [facility] | | [address] | | | - LABORATORY | | | | + + + + + Renal Function Panel (11/24/2018 3:45 PM PDT) + + + + + + | Component | Value | Ref Range | Performed | Pathologist | | | | | At | Signature | + + + + + + | Na | 145 | 136 - 145 | [facility] | | | | | mmol/L | [facility] | | | | | | MEDICAL | | | | | | CENTER - | | | | | | LABORATORY | | + + + + + + | K | 3.6 | 3.4 - 5.1 | [facility] | | | | | mmol/L | [facility] | | | | | | MEDICAL | | | | | | CENTER - | | | | | | LABORATORY | | + + + + + + | Cl | 110 (H) | 98 - 107 mmol/L | [facility] | | | | | | [facility] | | | | | | MEDICAL | | | | | | CENTER - | | | | | | LABORATORY | | + + + + + + | CO2 | 32 (H) | 20 - 31 mmol/L | [facility] | | | | | | [facility] | | | | | | MEDICAL | | | | | | CENTER - | | | | | | LABORATORY | | + + + + + + | Anion Gap | 3 | 3 - 16 mmol/L | [facility] | | | | | | [facility] | | | | | | MEDICAL | | | | | | CENTER - | | | | | | LABORATORY | | + + + + + + | Glucose | 90 | 60 - 106 mg/dL | [facility] | | | | | | [facility] | | | | | | MEDICAL | | | | | | CENTER - | | | | | | LABORATORY | | + + + + + + | BUN | 19 | 9 - 23 mg/dL | [facility] | | | | | | [facility] | | | | | | MEDICAL | | | | | | CENTER - | | | | | | LABORATORY | | + + + + + + | Creatinine | 1.07 (H) | 0.55 - 1.02 | [facility] | | | | | mg/dL | [facility] | | | | | | MEDICAL | | | | | | CENTER - | | | | | | LABORATORY | | + + + + + + | eGFR, | 51 (L)Comment: | >=60 | [facility] | | | non- | GLOMERULAR FILTRATION | mL/min/1.73m2 | [facility] | | | [place] | RATE,ESTIMATED | | MEDICAL | | | | mL/min/1.74z5Lujz than | | CENTER - | | [...] + + + + + + | Phosphorus | 2.9 | 2.4 - 5.1 mg/dL | [facility] | | | | [...] [address] | [place] | [phone] | | [facility] | | [address] | | | - LABORATORY | | | | + + + + + documented in this encounter Visit Diagnoses + + | Diagnosis | + + | Edema, unspecified type - Primary | + + documented in this encounter
--- OUTSIDE RECORDS SUMMARY | ~2020-01-04 | XMS | Encounter Summary ---
Demographics + + + | Address | [address] | | | [place] [address] | + + + | Home Phone [...] Author | [facility] | | | and [...] [address] | | | | | [address], | | | | | [place] [address] | | + + + + + | Ryan Vogt | ECON | Unknown | | + + + + + | Rob Vogt | ECON | Unknown | | + + + + + Care Team Providers + +------+ + | Care Juke Box Servicer Name | Role | Phone | + [...] Radiology | Diagnoses | [place], | [address] | | | | | Pulmonary | Abrahan Cortez MD | [facility] | | | | | nodule | [address] | [place], | | | | | Procedures | STREET | [place] [address] | | | | | CT Chest wo | [place], | Phone: | | | | | Contrast | [place] [address] | [phone] | | | | | | Phone: | Fax: | | | | | | [phone] | [phone] | | | | | | Fax: | | | | | | | [phone] | | +--------+--------+ + + + + Reason for Visit Diagnostic/Screening (Routine) +--------+--------+ + + + + | Status | Reason | Specialty | Diagnoses / | Referred By | Referred To | | | | | Procedures | Contact | Contact | +--------+--------+ + + + + | Closed | | Radiology | Diagnoses | [place], | [address] | | | | | Pulmonary | Abrahan Cortez MD | [facility] | | | | | nodule | [address] | [place], | | | | | Procedures | STREET | [place] [address] | | | | | CT Chest wo | [place], | Phone: | | | | | Contrast | [place] [address] | [phone] | | | | | | Phone: | Fax: | | | | | | [phone] | [phone] | | | | | | Fax: | | | | | | | [phone] | | +--------+--------+ + + + + Encounter Details +--------+ + + + + | Date | Type | Department | Care Team | Description | +--------+ + + + + | 07/05/ | Hospital | [facility] | Abrahan Samaniego MD | Pulmonary nodule | | 2016 | Encounter | MED [facility] [address] | [address] [facility] | | | | | [facility] [place], | [place], [place] | | | | | [place] [address] | [address] | | | | | [phone] | | | +--------+ + + + [...] tablet by | 90 | 3 | 09/18/19 | | | (LIPITOR) 10 mg | mouth nightly. | tablet | | 15 | 6 | | tablet | | | | [...] predniSONE | take 1 tablet by | 90 | 3 | 03/07/20 | | | (DELTASONE) 5 mg | mouth daily with A | tablet | | 15 | 6 | | tablet | 1MG TABLET TO EQUAL | | | | | | | 6MG DAILY | | | | | + + [...] [place] | | | | | | [place] | | | | | | [address] | | | | | | | | +--------+---------+ + + + | 07/25/ | Office | Cardiology | Renetta, | | | 2020 | Visit | | [facility] [address] | | | | | | [place] | | | | | | [place] [address] | | | | | | [phone] | | | | | | | | +--------+---------+ + + + | 09/03/ | Office | Endocrinology | Cheryl Zee MD | | | 2020 | Visit | | [address] [place] | | | | | | [address] [place] | | | | | | [id number] | | | | | | | | +--------+---------+ + + + documented as of this encounter Procedures + +--------+ + + + | Procedure Name | Priori | Date/Time | Associated Diagnosis | Comments | | | ty | | | | + +--------+ + + + | CT CHEST WO CONTRAST | Routin | 07/05/2015 | Pulmonary nodule | Results for this | | | e | 11:41 AM | | procedure are in the | | | | PST | | results section. | + +--------+ + + + documented in this encounter Results CT Chest wo Contrast (07/05/2015 11:41 AM PST) + + | Specimen | + + | | + + + + + | Narrative | Performed At | + + + | CT CHEST WO CONTRAST . 07/05/2015 11:40 AM HISTORY: 6 mm | [facility] | | pulmonary nodule COMPARISON: Chest x-ray 06/27/2015 | [facility] | | TECHNIQUE: Axial images were obtained from the base of the neck to the | [facility] | | upper abdomen without IV contrast. [...] ST. | [address] | [place] | [phone] | | [facility] | | [address] | | | - IMAGING | | | | + + + + + documented in this encounter Visit Diagnoses + + | Diagnosis | + + | Pulmonary nodule Solitary pulmonary nodule | + + documented in this encounter"
--- OUTSIDE RECORDS SUMMARY | ~2020-01-04 | XMS | Encounter Summary ---
Demographics + + + | Address | [address] | | | [place] [address] | + + + | Home Phone [...] Author | [facility] | | | and [place] [...] [place], | | | | | [place] [address] | | + + + + + | Ryan Vogt | ECON | Unknown | | + + + + + | Rob Vogt | ECON | Unknown | | + + + + + Care Team Providers + +------+ + | Care Beamster Name | Role | Phone | + +------+ + PCP | Unavailable | + +------+ + Encounter Details +--------+ + + + + | Date | Type | Department | Care Team | Description | +--------+ + + + + | 03/13/ | Hospital | [facility] | | | | 2002 | Encounter | MED CTR EMERGENCY | | | | | | CENTER [address] | | | | | | [place] | | | | | | [address] | | | | | | [phone] | | | +--------+ + + + [...] [place] | | | | | | [id number] | | | | | | | | +--------+---------+ + + + | 07/25/ | Office | Cardiology | Renetta, | | | 2020 | Visit | | [facility] [address] | | | | | | [place] | | | | | | [place] [address] | | | | | | [phone] | | | | | | | [...]
--- OUTSIDE RECORDS SUMMARY | ~2020-01-04 | XMS | Encounter Summary ---
Demographics + + + | Address | [address] | | | [place] [address] | + + + | Home Phone [...] + | Author | [facility] | | [...] | + + + + + | Cristfoer Vogt | ECON | [address] | | | | | [place], | | | | | [place] [address] | | + + + + + | Ryan Vogt | ECON | Unknown | | + + + + + | Rob Vogt | ECON | Unknown | | + + + + + Care Team Providers + +------+ + | Care Referral Manager Name | Role | Phone | + +------+ + | Abrahan Samaniego MD | PCP | | + +------+ + Reason for Visit + +--------+ + | Reason | Onset | Comments | | | Date | | + +--------+ + | Blood Pressure | 12/27/ | | | | 2018 | | + +--------+ + Encounter Details +--------+ + + + + | Date | Type | Department | Care Team | Description | +--------+ + + + + | 12/27/ | Telephone | [facility] | Benigno Deras, | Blood Pressure | | 2018 | | CARDIOLOGY [address] | [address] [place] | | | | | [place], | [place], | | | | | [place] [address] | [place] [address] | | | | | [phone] | [phone] | | | | | | | [...] this encounter Miscellaneous Notes Telephone Encounter - Sonya Kraft RN - 12/27/2018 2:50 PM PDTPatient notified ... .......................................Sonya Kraft RN on 12/27/18 at 14:50 elephone Encount er - Jessi Hernandez RN - 12/27/2018 2:27 PM PDTLeft message. ......................... ..................Jessi Hernandez RN on 12/27/18 at 14:27 elephone Encounte r - Benigno Deras MD - 12/27/2018 2:13 PM PDTNo med change. Thank you. elephone Encounter - Skye Dimas CMA - 12/27/2018 1:56 PM PDTFormatting of this note might be diff erent from the original. Next Visit:01/16/19 Blood pressure log received from patient as follows:12/08/18---12/21/18 Medication Change: Increase Lipitor to 20mg daily, stop metoprolol, start amlodipine 5mg d aily.. Date BP AM Pulse AM BP PM Pulse PM 12/08/18 126/76 69 117/74 79 12/09/18 126/74 73 123/80 76 12/10/18 128/68 77 128/74 76 12/11/18 113/70 99 124/76 87 12/12/18 126/73 85 12/13/18 131/77 70 12/14/18 134/76 80 120/64 90 12/15/18 127/73 73 111/69 87 12/16/18 129/76 76 127/68 92 12/17/18 125/71 93 12/18/18 116/66 84 118/65 76 12/19/18 120/67 79 12/20/18 121/69 79 123/69 77 12/20/18 114/73 85 Additional Comments: documented in this encounter Plan of Treatment +--------+---------+ + + + | Date | Type | Specialty | Care Team | Description | +--------+---------+ + + + | 04/29/ | Office | Internal Medicine | Abrahan Samaniego MD | | | 2019 | Visit | | [facility] [address] | | | | | | [place] | | | | | | [address] | | | | | | | | +--------+---------+ + + + | 07/25/ | Office | Cardiology | Renetta, | | | 2020 | Visit | | [facility] [address] | | | | | | [place] | | | | | | [place] [address] | | | | | | [phone] | | | | | | | | +--------+---------+ + + + | 09/03/ | Office | Endocrinology | Cheryl Zee MD | | | 2020 | Visit | | [address] | | | | | | [address] [place] | | | | | | [address] | | | | | | | | +--------+---------+ + + + documented as of this encounter Visit Diagnoses Not on filedocumented in this encounter"
--- OUTSIDE RECORDS SUMMARY | ~2020-01-04 | XMS | Encounter Summary ---
Demographics + + + | Address | [address] | | | [place] [address] | + + + | Home Phone | | + + + | Preferred Language | Unknown | + + + | Marital Status | | + + + | Baptist Affiliation | 1027 | + + + | Race | Unknown | + + + | Ethnic Group | Unknown | + + + Author + + + | Author | [facility] | | | and [place] | + + + | Organization | [facility] | | [...] [place], | | | | | [place] [address] | | + + + + + | Ryan Vogt | ECON | Unknown | | + + + + + | Rob Vogt | ECON | Unknown | | + + + + + Care Team Providers + +------+ + | Care Picture Copyist Name | Role | Phone | + +------+ + PCP | Unavailable | + +------+ + Encounter Details +--------+ + + + + | Date | Type | Department | Care Team | Description | +--------+ + + + + | 05/14/ | Hospital | [facility] | | | | 2003 | Encounter | MED CTR EMERGENCY | | | | | | CENTER [address] | | | | | | [place] | | | | | | [address] | | | | | | [phone] | | | +--------+ + + + [...] [place] | | | | | | [address] | | | | | | | | +--------+---------+ + + + | 07/25/ | Office | Cardiology | Renetta, | | | 2020 | Visit | | [facility] [address] | | | | | | [place] | | | | | | [place] [address] | | | | | | [phone] | | | | | | | | +--------+---------+ + + + | 09/03/ | Office | Endocrinology | Cehryl Zee MD | | | 2020 | Visit | | [address] | | | | | | [address] [place] | | | | | | [address] | | | | | | | | +--------+---------+ + + + documented as of this encounter Visit Diagnoses Not on filedocumented in this encounter"
--- OUTSIDE RECORDS SUMMARY | ~2020-01-04 | XMS | Encounter Summary ---
Demographics + + + | Address | [address] | | | [place] [address] | + + + | Home Phone [...] + + + | Author | [facility] | | | and [place] | + + + | Organization | [facility] | | | and [place] | [...] [place], | | | | | [place] [address] | | + + + + + | Ryan Vogt | ECON | Unknown | | + + + + + | Rob Vogt | ECON | Unknown | | + + + + + Care Team Providers + +------+ + | Care Accident Examiner Name | Role | Phone | + +------+ + | Abrahan Samaniego MD | PCP | | + +------+ + Reason for Visit Diagnostic/Screening (Routine) +--------+--------+ + + + + | Status | Reason | Specialty | Diagnoses / | Referred By | Referred To | | | | | Procedures | Contact | Contact | +--------+--------+ + + + + | Closed | | Radiology | Diagnoses | [place], | [facility] | | | | | High | MD Cheryl | Medicine | | | | | alkaline | [address] | [address] | | | | | phosphatase | [address] [place] | [address] | | | | | level | [address] | [place], [place] | | | | | Procedures | [place], [place] | [address] | | | | | [place] Bone Scan | [address] | Phone: | | | | | Whole Body | Phone: | [phone] | | | | | NM Bone | [phone] | Fax: | | | | | Marrow Whole | Fax: | [phone] | | | | | Body NM | [phone] | | | | | | Bone Scan WB | | | | | | | W SPECT | | | +--------+--------+ + + + + Encounter Details +--------+ + + + + | Date | Type | Department | Care Team | Description | +--------+ + + + + | 08/28/ | Hospital | [facility] | Cheryl Zee MD | | | 2020 | Encounter | [facility] | [address] [place] | | | | | MEDICINE [address] | [address] [place], [place] | | | | | [address] | [id number] | | | | | [place], [place] | | | | | | [address] | | | | | | [phone] | | | +--------+ + + + [...] under | 5 each | 2 | 08/28/19 | | | (OMNITROPE) 5.8 MG | the skin Daily. | | | 20 | 0 | | SOLR | | [...] | | | | | | [place] [address] | | | | | | [phone] | | | | | | | | +--------+---------+ + + + | 09/03/ | Office | Endocrinology | Cheryl Zee MD | | | 2020 | Visit | | [address] | | | | | | [address] [place] | | | | | | [id number] | | | | | | | | +--------+---------+ + + + documented as of this encounter Procedures + +--------+ + + + | Procedure Name | Priori | Date/Time | Associated Diagnosis | Comments | | | ty | | | | + +--------+ + + + | NM BONE SCAN WHOLE | Routin | 08/29/2019 | High alkaline | Results for this | | BODY | e | 3:35 PM | phosphatase level | procedure are in the | | | | PDT | | results section. | + +--------+ + + + documented in this encounter Results NM Bone Scan Whole Body (08/29/2019 3:35 PM PDT) + + | Specimen | + + | | + + + + + | Impressions | Performed At | + + + | 1. Moderate uptake seen at the junction of the body of the manubrium | [facility] | | and body of the sternum, probably degenerative. This could be | | | confirmed with dedicated radiographs. 2. Mild to moderate uptake seen | | | surrounding the right knee and ankle. This could be degenerative or | | | could be related to trauma. Complex regional pain syndrome is also | | | a potential consideration. Consider correlation with radiographs if | | | not already obtained. Signed by: Javier Aguayo, Arron Sign | | | Date/Time: 08/30/2019 9:11 AM | | + + + + + + | Narrative | Performed At | + + + | NM BONE SCAN WHOLE BODY CLINICAL INFORMATION: Elevated | [facility] | | alkaline phosphatase, look for bone lesion COMPARISON: XR CHEST | | | AP PORTABLE (11/10/2018); XR DISTAL LEFT UPPER EXTREMITY OUTSIDE STUDY | | | (03/25/2016); XR CHEST AP PORTABLE (11/30/2015); PROCEDURE: | | | Following the intravenous administration of 25.1mCi of mdp, a whole | | | body bone scan was done. FINDINGS: Moderate uptake seen at the | | | junction of the manubrium and body of the sternum. [id number] | | | uptake seen surrounding the right knee and ankle. Otherwise mild | | | uptake seen involving the extremity joints bilaterally, likely | | | degenerative. Physiologic uptake seen in the kidneys, with | | | excretion into the urinary bladder. | | + + + + + | Procedure Note | + + | Vishnu, Rad Results In - 08/30/2019 9:14 AM PDT | | NM BONE SCAN WHOLE BODY | | | | CLINICAL INFORMATION: | | Elevated alkaline phosphatase, look for bone lesion | | | | COMPARISON: | | XR CHEST AP PORTABLE (11/10/2018); XR DISTAL LEFT UPPER EXTREMITY OUTSIDE | | STUDY (03/25/2016); XR CHEST AP PORTABLE (11/30/2015); | | | | PROCEDURE: | | Following the intravenous administration of 25.1mCi of mdp, a whole | | body bone scan was done. | | | | FINDINGS: | | Moderate uptake seen at the junction of the manubrium and body of the | | sternum. Ijrv-wt-ejtryquk uptake seen surrounding the right knee and | | ankle. Otherwise mild uptake seen involving the extremity joints | | bilaterally, likely degenerative. Physiologic uptake seen in the | | kidneys, with excretion into the urinary bladder. | | | | IMPRESSION: | | 1. Moderate uptake seen at the junction of the body of the manubrium | | and body of the sternum, probably degenerative. This could be | | confirmed with dedicated radiographs. | | 2. Mild to moderate uptake seen surrounding the right knee and ankle. | | This could be degenerative or could be related to trauma. Complex | | regional pain syndrome is also a potential consideration. Consider | | correlation with radiographs if not already obtained. | | | | | | | | Signed by: Javier Aguayo Amit | | Sign Date/Time: 08/30/2019 9:11 AM | + + + +---------+ + + | Performing | Address | City/State/Zipcode | Phone Number | | Organization | | | | + +---------+ + + | [facility] | | | | + +---------+ + + documented in this encounter Visit Diagnoses Not on filedocumented in this encounter"
--- OUTSIDE RECORDS SUMMARY | ~2020-01-04 | XMS | Encounter Summary ---
Demographics + + + | Address | [address] | | | [place] [address] | + + + | Home Phone [...] + | Author | [facility] | | | and [...] [place], | | | | | [place] [address] | | + + + + + | Ryan Vogt | ECON | Unknown | | + + + + + | Rob Vogt | ECON | Unknown | | + + + + + Care Team Providers + +------+ + | Care Accountant Cost Name | Role | Phone | + +------+ + | Abrahan Samaniego MD | PCP | | + +------+ + Encounter Details +--------+ + + + + | Date | Type | Department | Care Team | Description | +--------+ + + + + | 08/22/ | Documentati | [facility] | Katie Barrett, | | | 2014 | on | MED CTR THERAPY 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 Reason for missed visit: No show. Phone call placed: yes Plan: Left a message. Giving next appointment time. Also asked pt to call if she wanted to be placed on the cxl call list if an opening opended up at time she could come in. Electronically signed by: Katie Barrett PTA, 08/22/2014 15:40 Patient Name: Oliva Vogt/: 1950/ documented in this encounter Plan of Treatment +--------+---------+ + + + | Date | Type | Specialty | Care Team | Description | +--------+---------+ + + + | 04/29/ | Office | Internal Medicine | Abrahan Samaniego MD | | | 2019 | Visit | | [address] [place] [address] | | | | | | [place] | | | | | | [address] | | | | | | | | +--------+---------+ + + + | 07/25/ | Office | Cardiology | Renetta, | | | 2020 | Visit | | [facility] [address] | | | | | | [address] [place], | | | | | | [place] [address] | | | | | | [phone] | | | | | | | | +--------+---------+ + + + | 09/03/ | Office | Endocrinology | Cheryl Zee MD | | | 2020 | Visit | | [address] | | | | | | [address] [place] | | | | | | [address] | | | | | | | | +--------+---------+ + + + documented as of this encounter Visit Diagnoses + + | Diagnosis | + + | Cervicalgia - Primary | + + | Other congenital anomaly of spine | + + | Impaired mobility Other ill-defined conditions | + + documented in this encounter"
--- OUTSIDE RECORDS SUMMARY | ~2020-01-04 | XMS | Encounter Summary ---
Demographics + + + | Address | [address] | | | [place] [address] | + + + | Home Phone | | + + + | Preferred Language | Unknown | + + + | Marital Status | | + + + | Lutheran Affiliation | 1027 | + + + | Race | Unknown | + + + | Ethnic Group | Unknown | + + + Author + + + | Author | [facility] | [...] [place], | | | | | [place] [address] | | + + + + + | Ryan Vogt | ECON | Unknown | | + + + + + | Rob Vogt | ECON | Unknown | | + + + + + Care Team Providers + +------+ + | Care Official Greeter Name | Role | Phone | + +------+ + | Abrahan Samaniego MD | PCP | | + +------+ + Encounter Details +--------+ + + + + | Date | Type | Department | Care Team | Description | +--------+ + + + + | 08/07/ | Orders Only | [facility] | Cheryl Zee MD | High alkaline | | 2020 | | [place] | [address] [place] | phosphatase level | | | | ENDOCRINOLOGY [address] | [address] [place] | (Primary Dx) | | | [address] | [address] | | | | | [place] | | | | | | [address] | | | | | | [phone] | | | +--------+ + + + [...] [place] | | | | | | [address] | | | | | | | | +--------+---------+ + + + | 07/25/ | Office | Cardiology | Renetta, | | | 2020 | Visit | | [facility] [address] | | | | | | [address] [place] | | | | | | [place] [address] | | | | | | [phone] | | | | | | | | +--------+---------+ + + + | 09/03/ | Office | Endocrinology | Cheryl Zee MD | | | 2020 | Visit | | [address] [place] | | | | | | [address] [place] | | | | | | [id number] | | | | | | | | +--------+---------+ + + + documented as of this encounter Results Alkaline Phosphatase, Bone Specific (08/10/2019 11:28 AM PST) + + + + + + | Component | Value | Ref Range | Performed | Pathologist | | | | | At | Signature | + + + + + + | [facility] | 71.9Comment: | ug/L | REFERENCE | | | Ostase | Premenopausal Women: | | LAB [facility] | | | | 6.0 | | - BKR | | | | - 22.7 | | | | | | Postmenopausal Women: | | | | | | 8.1 - | | | | | | 31.6 | | | | + + + + + + + + | Specimen | + + | Blood | + + + + + | Narrative | Performed At | + + + | Performed at: [address] [facility] [place] [address] [address], | REFERENCE LAB | | [place], [place] [id number] Clarifier Operator Helper: Sheron Vera MD, Phone: | [facility] | | [phone] | | + + + + + + + + | Performing | Address | City/State/Zipcode | Phone Number | | Organization | | | | + + + + + | REFERENCE LAB | [address] | [place], [place] | [phone] | | [facility] | [facility] | [address] | | + + + + + documented in this encounter Visit Diagnoses + + | Diagnosis | + + | High alkaline phosphatase level - Primary | + + documented in this encounter"
--- OUTSIDE RECORDS SUMMARY | ~2020-01-04 | XMS | Encounter Summary ---
Demographics + + + | Address | [address] | | | [place] [address] | + + + | Home Phone | | + + + | Preferred Language | Unknown | + + + | Marital Status | | + + + | Scientology Affiliation | 1027 | + + + | Race | Unknown | + + + | Ethnic Group | Unknown | + + + Author + + + | Author | [facility] | [...] [place], | | | | | [place] [address] | | + + + + + | Ryan Vogt | ECON | Unknown | | + + + + + | Rob Vogt | ECON | Unknown | | + + + + + Care Team Providers + +------+ + | Care Archival Studies Professor Name | Role | Phone | + [...] | Radiology | Diagnoses | Aden, | Ketty | | | | | | Abrahan Cortez MD | Mammography | | | | | Postmenopaus | [address] | [address] | | | | | [address] | [address] | [place], | | | | | Procedures | [place], | [place] | | | | | DEXA BONE | [place] [address] | [address] | | | | | DENSITY | Phone: | Phone: | | | | | STUDY WO | [phone] | [phone] | | | | | VERT FX | Fax: | Fax: | | | | | ASSESSMENT | [phone] | [phone] | +--------+--------+ + + + + Encounter Details +--------+ + + + + | Date | Type | Department | Care Team | Description | +--------+ + + + + | 08/12/ | Hospital | [facility] | Abrahan Samaniego MD | Postmenopausal | | 2018 | Encounter | MED CTR MAMMOGRAPHY | [address] [facility] | | | | | [address] | [place] | | | | | [place] | [address] | | | | | [address] | | | | | | [phone] | | | +--------+ + + + [...] tablet by | 90 | 2 | 06/21/19 | | | (LIPITOR) 10 mg | [...] | | 0 | | | | Roddgnl-Jqamslrjg-Bf | | | | | 9 | | idalia Cerrato (CALCIUM | | | | | | [...] tablet by | 90 | 3 | 11/24/19 | | | (SYNTHROID, | mouth every morning | tablet | | 17 | 8 | | LEVOTHROID) 100 mcg | (before [...] tablet by | 90 | 3 | 06/21/19 | | | (DELTASONE) 5 mg | mouth once daily | tablet | | 18 | 8 [...] | 2020 | Visit | | [address] [facility] | | | | | | [place] | | | | | | [address] | | | | | | | | +--------+---------+ + + + | 07/25/ | Office | Cardiology | Renetta, | | | 2020 | Visit | | [facility] [address] | | | | | | [place], | | | | | | [place] [address] | | | | | | [phone] | | | | | | | | +--------+---------+ + + + | 09/03/ | Office | Endocrinology | Cheryl Zee MD | | | 2020 | Visit | | [address] | | | | | | [address] [place] | | | | | | [phone] | | | | | | | | +--------+---------+ + + + documented as of this encounter Procedures + +--------+ + + + | Procedure Name | Priori | Date/Time | Associated Diagnosis | Comments | | | ty | | | | + +--------+ + + + | DEXA BONE DENSITY | Routin | 08/12/2017 | Postmenopausal | Results for this | | STUDY MARK HUGHES | e | 4:40 PM | | procedure are in the | | ASSESSMENT | | PST | | results section. | + +--------+ + + + documented in this encounter Results DEXA Bone Density Study MARK HUGHES Kacy (08/12/2017 4:40 PM PST) + + | Specimen | + + | | + + + + + | Narrative | Performed At | + + + | DEXA BONE DENSITY STUDY WO ROSEMARIE HUGHES ASSESSMENT 08/12/2017 4:40 PM | [facility] | | HISTORY: postmenopausal. COMPARISON: None. PROTOCOL: Bone | | | mineral density was calculated with dual absorption x-ray technique. | | | FINDINGS: Bone mineral density for the left femoral neck is 0.583 | | | g/cm2, corresponding to a T score of -2.4 and a Z score of -0.8. | | | Bone mineral density for the lumbar spine measured from L1 to L4 is | | | 0.793 g/cm2, corresponding to a T score of -2.3 and a Z score of | | | -0.4. IMPRESSION - LEFT FEMORAL NECK: Fracture risk: Increased; | | | WHO classification: Osteopenia. L1-L4 REGION OF THE LUMBAR SPINE: | | | Fracture risk: Increased; WHO classification: Osteopenia. World | | | Health Organization Classification Normal: | | | T score at or above -1 SD Osteopenia: T score between | | | -1 and -2.5 SD Osteoporosis: T score at or below -2.5 SD | | | Dictated and Signed by: Yaakov Estrada MD Electronically | | | signed: 08/13/2017 9:35 AM | | + + + + + | Procedure Note | + + | Vishnu, Rad Results In - 08/13/2017 9:38 AM PST DEXA BONE DENSITY STUDY WO VERT FX | | ASSESSMENT 08/12/2017 4:40 PMHISTORY: postmenopausal.COMPARISON: None.PROTOCOL: Bone | | mineral density was calculated with dual absorption x-raytechnique.FINDINGS:Bone mineral | | density for the left femoral neck is 0.583 g/cm2, corresponding toa T score of -2.4 and | | a Z score of -0.8.Bone mineral density for the lumbar spine measured from L1 to L4 is | | 0.793 g/cm2,corresponding to a T score of -2.3 and a Z score of -0.4.IMPRESSION -LEFT | | FEMORAL NECK: Fracture risk: Increased; WHO classification: Osteopenia.L1-L4 REGION OF | | THE LUMBAR SPINE: Fracture risk: Increased; WHO classification:Osteopenia.World Health | | Organization ClassificationNormal: T score at or above -1 | | SDOsteopenia: T score between -1 and -2.5 SDOsteoporosis: T score at or | | below -2.5 SDDictated and Signed by: Yaakov Estrada MD Electronically signed: | | 08/13/2017 9:35 AM | | | |Bone mineral density for the lumbar spine measured from L1 to L4 is 0.793 g/cm2, | |corresponding to a T score of -2.3 and a Z score of -0.4. | | | |IMPRESSION - | |LEFT FEMORAL NECK: Fracture risk: Increased; WHO classification: Osteopenia. | | | |L1-L4 REGION OF THE LUMBAR SPINE: Fracture risk: Increased; WHO classification: | |Osteopenia. | | | |World Health Organization Classification | |Normal: T score at or above -1 SD | |Osteopenia: T score between -1 and -2.5 SD | |Osteoporosis: T score at or below -2.5 SD | | | |Dictated and Signed by: Yaakov Estrada MD | | Electronically signed: 08/13/2017 9:35 AM | + + + +---------+ + + | Performing | Address | City/State/Zipcode | Phone Number | | Organization | | | | + +---------+ + + | [facility] | | | | + +---------+ + + documented in this encounter Visit Diagnoses + + | Diagnosis | + + | Postmenopausal Asymptomatic postmenopausal status (age-related) (natural) | + + documented in this encounter"
--- OUTSIDE RECORDS SUMMARY | ~2020-01-04 | XMS | Encounter Summary ---
Demographics + + + | Address | [address] | | | [place] [address] | + + + | Home Phone [...] | Author | [facility] | | [...] [place], | | | | | [place] [address] | | + + + + + | Ryan Vogt | ECON | Unknown | | + + + + + | Rob Vogt | ECON | Unknown | | + + + + + Care Team Providers + +------+ + | Care Electrician Deck Name | Role | Phone | + +------+ + | Abrahan Samaniego MD | PCP | | + +------+ + Reason for Visit + +--------+ + | Reason | Onset | Comments | | | Date | | + +--------+ + | Appointment Question | 01/18/ | | | | 2019 | | + +--------+ + Encounter Details +--------+ + + + + | Date | Type | Department | Care Team | Description | +--------+ + + + + | 01/18/ | Telephone | [facility] [place] [facility] | Abrahan Samaniego MD | Appointment Question | | 2018 | | [address] | [address] [place] [address] | | | | | [place], | [place] | | | | | [place] [address] | [address] | | | | | [phone] | | | +--------+ + + + [...] this encounter Miscellaneous Notes Telephone Encounter - Priya Walls - 01/18/2019 10:18 AM PDTPatient returned call to speak with the nurse. Please call patient to advise. elephone Encounter - Deplhine Doan RN - 01/18/2019 10:04 AM PDTLeft message for patient to call Electronically signed by Delphine Doan RN at 01/18 10:04 AM PDTTelephone Encounter - Argelia Morales - 01/18/2019 9:53 AM PDTPatient called I to reschedule her ED follow up. Patient may be contacted at work at [phone]. documented in this enc ounter Plan of Treatment +--------+---------+ + + + | Date | Type | Specialty | Care Team | Description | +--------+---------+ + + + | 04/29/ | Office | Internal Medicine | Abrahan Samaniego MD | | | 2019 | Visit | | [address] | | | | | | [place] | | | | | | [address] | | | | | | | | +--------+---------+ + + + | 07/25/ | Office | Cardiology | Renetta, | | | 2020 | Visit | | [facility] [address] | | | | | | [place], | | | | | | [place] [address] | | | | | | [phone] | | | | | | | | +--------+---------+ + + + | 09/03/ | Office | Endocrinology | Cheryl Zee MD | | | 2020 | Visit | | [address] [place] | | | | | | [address] [place] | | | | | | [phone] | | | | | | | [...]
--- OUTSIDE RECORDS SUMMARY | ~2020-01-04 | XMS | Encounter Summary ---
Demographics + + + | Address | [address] | | | [place] [address] | + + + | Home Phone | | + + + | Preferred Language | Unknown | + + + | Marital Status | | + + + | Orthodox Affiliation | 1027 | + + + | Race | Unknown | + + + | Ethnic Group | Unknown | + + + Author + + + | Author | [facility] | | | and [...] [place], | | | | | [place] [address] | | + + + + + | Ryan Vogt | ECON | Unknown | | + + + + + | Rob Vogt | ECON | Unknown | | + + + + + Care Team Providers + +------+ + | Care Senior Courtroom Clerk Name | Role | Phone | + +------+ + | Abrahan Samaniego MD | PCP | | + +------+ + Reason for Visit + +--------+ + | Reason | Onset | Comments | | | Date | | + +--------+ + | Medication Orders | 04/03/ | | | | 2019 | | + +--------+ + Encounter Details +--------+--------+ + + + | Date | Type | Department | Care Team | Description | +--------+--------+ + + + | 04/03/ | Refill | [facility] | Eugene Watkins | Medication Orders | | 2018 | | ORTHOPEDIC SURGERY | MD Fady [address] | | | | | [address] [place] | [place] | | | | | [place] | [id number] | | | | | [address] | | | | | | [phone] | | | +--------+--------+ + + + [...] this encounter Miscellaneous Notes Telephone Encounter - [place] Cabrera Medical Assistant - 04/04/2019 2:27 PM PDTLeft patien t a message that her script has been called in. And if she has any questions to call our off ice. ele phone Encounter - [place] Cabrera Medical Assistant - 04/04/2019 2:25 PM PDTSpoke to pharmac ist jose alejandro and called in the prescription over the phone,. elephone Encounter - [place] Cabrera Medical Assistant - 04/03/2019 3:57 PM PDTPatient is requesting ativan for her mri study that she is going to be getting done on Wednesday. Ok to call in prescription. documented in this encounter Plan of Treatment +--------+---------+ + + + | Date | Type | Specialty | Care Team | Description | +--------+---------+ + + + | 04/29/ | Office | Internal Medicine | Abrahan Samaniego MD | | | 2019 | Visit | | [address] | | | | | | [place] | | | | | | [address] | | | | | | | | +--------+---------+ + + + | 07/25/ | Office | Cardiology | Renetta, | | | 2020 | Visit | | [facility] [address] | | | | | | [place] | | | | | | [place] [address] | | | | | | [phone] | | | | | | | | +--------+---------+ + + + | 09/03/ | Office | Endocrinology | Cheryl Zee MD | | | 2020 | Visit | | [address] [place] | | | | | | [address] [place] | | | | | | [address] | | | | | | | | +--------+---------+ + + + documented as of this encounter Visit Diagnoses Not on filedocumented in this encounter"
--- OUTSIDE RECORDS SUMMARY | ~2020-01-04 | XMS | Encounter Summary ---
Demographics + + + | Address | [address] | | | [place] [address] | + + + | Home Phone [...] | Author | [facility] | | | and [...] [place], | | | | | [place] [address] | | + + + + + | Ryan Vogt | ECON | Unknown | | + + + + + | Rob Vogt | ECON | Unknown | | + + + + + Care Team Providers + +------+ + | Care Collection Card Clerk Name | Role | Phone | + +------+ + | Abrahan Samaniego MD | PCP | | + +------+ + Reason for Visit + +--------+ + | Reason | Onset | Comments | | | Date | | + +--------+ + | Medication Refill | 12/07/ | | | | 2020 | | + +--------+ + Encounter Details +--------+--------+ + + + | Date | Type | Department | Care Team | Description | +--------+--------+ + + + | 12/07/ | [facility] | [facility] | Cheryl Zee MD | Medication Refill | | 2019 | | [place] | [address] [place] | | | | | ENDOCRINOLOGY [address] | [address] [place] | | | | | [address] [place] [address] | [phone] | | | | | [place] | | | | | | [address] | | | | | | [phone] | | | +--------+--------+ + + + [...] Telephone Encounter - Liz Hirsch CMA - 12/08/2019 1:10 PM PDTOn 12/05/2019 you refilled her Omnitrope during her visit. This went to the wrong pharmacy. Please re-approve.Electr onically signed by Liz Hirsch CMA at 12/08/2019 1:41 PM PDTdocumented in this encounter Plan of Treatment +--------+---------+ + + + | Date | Type | Specialty | Care Team | Description | +--------+---------+ + + + | 04/29/ | Office | Internal Medicine | Abrahan Samaniego MD | | 2019 | Visit | | [address] [facility] | | | | | | [place] | | | | | | [address] | | | | | | | | +--------+---------+ + + + | 07/25/ | Office | Cardiology | Renetta, | | | 2020 | Visit | | [facility] [address] | | | | | | [place], | | | | | | [place] [address] | | | | | | [phone] | | | | | | | [...] + | Diagnosis | + + | Panhypopituitarism (HCC) Panhypopituitarism | + + documented in this encounter"
--- OUTSIDE RECORDS SUMMARY | ~2020-01-04 | XMS | Encounter Summary ---
Demographics + + + | Address | [address] | | | [place] [address] | + + + | Home Phone | | + + + | Preferred Language | Unknown | + + + | Marital Status | | + + + | Taoism Affiliation | 1027 | + + + | Race | Unknown | + + + | Ethnic Group | Unknown | + + + Author + + + | Author | [facility] | | | and [place] | + + + | Organization | [facility] | | | [...] [place], | | | | | [place] [address] | | + + + + + | Ryan Vogt | ECON | Unknown | | + + + + + | Rob Vogt | ECON | Unknown | | + + + + + Care Team Providers + +------+ + | Care Equipment Operating Engineer Name | Role | Phone | [...] Description | +--------+--------+ + + + | 06/19/ | Refill | [facility] | Abrahan Samaniego MD | Medication Refill | | 2017 | | MEDICINE [address] [place] [address] | [address] [place] [address] | | | | | [place], | [place] | | | | | [place] [address] | [address] | | | | | [phone] | | | +--------+--------+ + + + [...] this encounter Miscellaneous Notes Telephone Encounter - Steve Christina JARROD Puga - 06/21/2017 1:56 PM PSTNotified labs dueElectr onically signed by Christina Wilson LPN at 06/21/2017 1:57 PM PSTTelephone Encounter - Christina Wilson LPN - 06/21/2017 12:26 PM PSTLeft message documented in this encounter Plan of Treatment +--------+---------+ + + + | Date | Type | Specialty | Care Team | Description | +--------+---------+ + + + | 04/29/ | Office | Internal Medicine | Abrahan Samaniego MD | | | 2019 | Visit | | [address] [place] [address] | | | | | | [place] | | | | | | [address] | | | | | | | | +--------+---------+ + + + | 07/25/ | Office | Cardiology | Renetta | | | 2020 | Visit | | [facility] [address] | | | | | | [place], | | | | | | [place] [address] | | | | | | [phone] | | | | | | | | +--------+---------+ + + + | 09/03/ | Office | Endocrinology | Cheryl Zee MD | | | 2020 | Visit | | [address] [place] | | | | | | [address] [place] | | | | | | [phone] | | | | | | | | +--------+---------+ + + + documented as of this encounter Results T4, Free (06/23/2017 11:53 AM PST) + +-------+ + + + | Component | Value | Ref Range | Performed | Pathologist | | | | | At | Signature | + +-------+ + + + | FT4 | 1.0 | 0.6 - 1.1 ng/dL | [facility] | | | | [...] [address] | [place] | [phone] | | [facility] | | [address] | | | - LABORATORY | | | | + + + + + CBC with Differential (06/23/2017 11:53 AM PST) + +-------+ + + + | Component | Value | Ref Range | Performed | Pathologist | | | | | At | Signature | + +-------+ + + + | White Blood | 6.7 | 4.0 - 11.0 K/uL | [facility] | | | Cells | | | [facility] | | | | | | MEDICAL | | | | | | CENTER - | | | | | | LABORATORY | | + +-------+ + + + | Red Blood | 5.01 | 3.70 - 5.20 | [facility] | | | Cells | | M/uL | [facility] | | | | | | MEDICAL | | | | | | CENTER - | | | | | | LABORATORY | | + +-------+ + + + | Hemoglobin | 15.0 | 11.5 - 16.0 | [facility] | | | | | g/dL | [facility] | | | | | | MEDICAL | | | | | | CENTER - | | | | | | LABORATORY | | + +-------+ + + + | Hematocrit | 44.3 | 34.0 - 47.0 % | [facility] | | | | | | [facility] | | | | | | MEDICAL | | | | | | CENTER - | | | | | | LABORATORY | | + +-------+ + + + | MCV | 88.4 | 83.0 - 101.0 fL | [facility] | | | | | | [facility] | | | | | | MEDICAL | | | | | | CENTER - | | | | | | LABORATORY | | + +-------+ + + + | MCH | 29.9 | 28.0 - 35.0 pg | [facility] | | | | | | [facility] | | | | | | MEDICAL | | | | | | CENTER - | | | | | | LABORATORY | | + +-------+ + + + | MCHC | 33.8 | 32.0 - 36.0 | [facility] | | | | | g/dL | [facility] | | | | | | MEDICAL | | | | | | CENTER - | | | | | | LABORATORY | | + +-------+ + + + | RDW-CV | 13.2 | <15.0 % | [facility] | | | | | | [facility] | | | | | | MEDICAL | | | | | | CENTER - | | | | | | LABORATORY | | + +-------+ + + + | Platelet | 258 | 140 - 440 K/uL | [facility] | | | Count | | | [facility] | | | | | | MEDICAL | | | | | | CENTER - | | | | | | LABORATORY | | + +-------+ + + + | MPV | 8.4 | fL | [facility] | | | | | | [facility] | | | | | | MEDICAL | | | | | | CENTER - | | | | | | LABORATORY | | + +-------+ + + + | % | 46.6 | 45.0 - 82.0 % | [facility] | | | Neutrophils | | | [facility] | | | | | | MEDICAL | | | | | | CENTER - | | | | | | LABORATORY | | + +-------+ + + + | % | 41.4 | 20.0 - 45.0 % | [facility] [...] +-------+ + + + | % | 1.5 | 0.0 - 5.0 % | [facility] | | | Eosinophils | | | [facility] | | | | | | MEDICAL | | | | | | CENTER - | | | | | | LABORATORY | | + +-------+ + + + | % Basophils | 0.7 | 0.0 - 1.0 % | [facility] | | | | | | [facility] | | | | | | MEDICAL | | | | | | CENTER - | | | | | | LABORATORY | | + +-------+ + + + | Absolute | 3.20 | 1.80 - 8.50 | [facility] | | | Neutrophils | | K/uL | [facility] | | | | | | MEDICAL | | | | | | CENTER - | | | | | | LABORATORY | | + +-------+ + + + | Absolute | 2.80 | 0.60 - 3.20 | [facility] | | | Lymphocytes | | K/uL | [facility] | | | | | | MEDICAL | | | | | | CENTER - | | | | | | LABORATORY | | + +-------+ + + + | Absolute | 0.70 | 0.00 - 1.00 | [facility] | | | Monocytes | | K/uL | [facility] | | | | | | MEDICAL | | | | | | CENTER - | | | | | | LABORATORY | | + +-------+ + + + | Absolute | 0.10 | 0.00 - 0.40 | [facility] | | | Eosinophils | | K/uL | [facility] | | | | | | MEDICAL | | | | | | CENTER - | | | | | | LABORATORY | | + +-------+ + + + | Absolute | 0.00 | 0.00 - 0.10 | [facility] | | | Basophils | | K/uL | [facility] | | | | | | [...] [address] | [place] | [phone] | | [facility] | | [address] | | | - LABORATORY | | | | + + + + + Comprehensive Metabolic Panel (06/23/2017 11:53 AM PST) + + + + + + | Component | Value | Ref Range | Performed | Pathologist | | | | | At | Signature | + + + + + + | Na | 142 | 136 - 149 | [facility] | | | | | mmol/L | [facility] | | | | | | MEDICAL | | | | | | CENTER - | | | | | | LABORATORY | | + + + + + + | K | 3.3 (L) | 3.5 - 5.1 | [facility] | | | | | mmol/L | [facility] | | | | | | MEDICAL | | | | | | CENTER - | | | | | | LABORATORY | | + + + + + + | Cl | 106 | 98 - 109 mmol/L | [facility] | | | | | | [facility] | | | | | | MEDICAL | | | | | | CENTER - | | | | | | LABORATORY | | + + + + + + | CO2 | 28 | 24 - 31 mmol/L | [facility] [...] + + + + | Glucose | 94 | 70 - 109 mg/dL | [facility] | | | | | | [facility] | | | | | | MEDICAL | | | | | | CENTER - | | | | | | LABORATORY | | + + + + + + | BUN | 17 | 7 - 18 mg/dL | [facility] | | | | | | [facility] | | | | | | MEDICAL | | | | | | CENTER - | | | | | | LABORATORY | | + + + + + + | Creatinine | 1.03 | 0.60 - 1.30 | [facility] | | | | | mg/dL | [facility] | | | | | | MEDICAL | | | | | | CENTER - | | | | | | LABORATORY | | + + + + + + | eGFR, | 53 (L)Comment: | >=60 | [facility] | | | non- | GLOMERULAR FILTRATION | mL/min/1.73m2 | [facility] | | | [place] | RATE,ESTIMATED | | MEDICAL | | | | mL/min/1.78r4Hnve than | | CENTER - | | [...] + + + + | Calcium | 9.9 | 8.3 - 10.5 | [facility] | | | | | mg/dL | [facility] | | | | | | MEDICAL | | | | | | CENTER - | | | | | | LABORATORY | | + + + + + + | Albumin | 4.1 | 3.2 - 5.0 g/dL | [facility] | | | | | | [facility] | | | | | | MEDICAL | | | | | | CENTER - | | | | | | LABORATORY | | + + + + + + | Bilirubin | 0.7 | 0.1 - 1.5 mg/dL | [facility] | | | Total | | | [facility] | | | | | | MEDICAL | | | | | | CENTER - | | | | | | LABORATORY | | + + + + + + | Total | 6.7 | 6.0 - 7.8 g/dL | [facility] | | | Protein | | | [facility] | | | | | | MEDICAL | | | | | | CENTER - | | | | | | LABORATORY | | + + + + + + | AST | 18 | 10 - 42 U/L | [facility] | | | | | | [facility] | | | | | | MEDICAL | | | | | | CENTER - | | | | | | LABORATORY | | + + + + + + | ALT | 21 | 6 - 45 U/L | [facility] | | | | | | [facility] | | | | | | MEDICAL | | | | | | CENTER - | | | | | | LABORATORY | | + + + + + + | Alkaline | 75 | 40 - 110 U/L | [facility] | | | Phosphatase | | | [facility] | | | | | | MEDICAL | | | | | | CENTER - | | | | | | LABORATORY | | + + + + + + | Globulin | 2.6 | 2.1 - 3.8 g/dL | [facility] [...] + + + + | BUN/Creatin | 16.5 | | [facility] | | | ine [...] ST. | [address] | [place], [place] | [phone] | | [facility] | | [address] | | | - LABORATORY | | | | + + + + + documented in this encounter Visit Diagnoses + + | Diagnosis | + + | Hyperlipidemia, unspecified hyperlipidemia type | + + | Hypothyroidism, unspecified type | + + | Adrenal insufficiency (HCC) Glucocorticoid deficiency | + + | Chronic kidney disease, unspecified CKD stage | + + documented in this encounter"
--- OUTSIDE RECORDS SUMMARY | ~2020-01-04 | XMS | Encounter Summary ---
Demographics + + + | Address | [address] | | | [place] [address] | + + + | Home Phone | | + + + | Preferred Language | Unknown | + + + | Marital Status | | + + + | Moravian Affiliation | 1027 | + + + | Race | Unknown | + + + | Ethnic Group | Unknown | + + + Author + + + | Author | [facility] | | | and [...] [place], | | | | | [place] [address] | | + + + + + | Ryan Vogt | ECON | Unknown | | + + + + + | Rob Vogt | ECON | Unknown | | + + + + + Care Team Providers + +------+ + | Care Clay Processing Labourer Name | Role | Phone | + +------+ + | Abrahan Samaniego MD | PCP | | + +------+ + Reason for Visit +--------+--------+ + | Reason | Onset | Comments | | | Date | | +--------+--------+ + | Other | 07/28/ | Elevated ALP | | | 2019 | | +--------+--------+ + Encounter Details +--------+ + + + + | Date | Type | Department | Care Team | Description | +--------+ + + + + | 07/28/ | Telephone | [facility] | Cheryl Zee MD | Other (Elevated ALP) | | 2019 | | [place] | [address] [place] | | | | | ENDOCRINOLOGY [address] | [address] [place] | | | | [address] [place] [address] | [phone] | | | | | [place] | | | | | | [address] | | | | | | [phone] | | | +--------+ + + + [...] Telephone Encounter - Liya Pina RN - 08/07/2019 9:51 AM PSTSee mychart message sen t by pt on 08/04/2019. Telephone Encounter - Liya Pina RN - 08/04/2019 1:43 PM PSTCalled pt and left VM to call back and go over Dr. Zee's Stackifyhart message. elephone Encounter - Cheryl Zee MD - 07/28/2019 6:36 PM PSTI sent chart message: Oliva, I tried to call but your mail-box was full, could not leave message. I would like to know - any new medical problem, any diarrhea, any recent illness, any bone pain or fracture? Elevated alkaline phosphatase could be related to Gastrointestinal or bone related cause. Please can you get blood tests for additional liver enzymes, also for vit D level? Vitamin D deficiency can cause elevated alkaline phosphatase as well. I placed order for your tests to get in [place] [facility] [place], contact me after tests a re completed. Let me know if questions. Best regards, MCosma e lephone Encounter - Sasha Patino - 07/28/2019 2:55 PM PSTFormatting of this note april ht be different from the original. Ok to leave detailed message: Comments/Concerns: Appt with special delivery mail carrier and some of the albs came back as elevated - ALP. PCP asked her to call our office to discuss with a nurse. Please call after 1:00 pm Mychart: ACTIVATED PCP: Abrahan Samaniego MD Future Appointments: Future Appointments Date Time Provider Department [place] 11/17/2019 2:30 PM Cheryl Zee MD [facility] None 04/29/2020 1:30 PM Abrahan Samaniego MD [facility] 07/25/2020 1:30 PM [facility] documented in this en counter Plan of Treatment +--------+---------+ + + + | Date | Type | Specialty | Care Team | Description | +--------+---------+ + + + | 04/29/ | Office | Internal Medicine | Abrahan Samaniego MD | | | 2019 | Visit | | [address] [place] [address] | | | | | | [place] | | | | | | [phone] | | | | | | | | +--------+---------+ + + + | 07/25/ | Office | Cardiology | Renetta, | | | 2020 | Visit | | [facility] [address] | | | | | | [place] | | | | | | [place] [address] | | | | | | [phone] | | | | | | | | +--------+---------+ + + + | 09/03/ | Office | Endocrinology | Cheryl Zee MD | | | 2020 | Visit | | [address] [place] | | | | | | [address] [place] | | | | | | [address] | | | | | | | | +--------+---------+ + + + documented as of this encounter Visit Diagnoses Not on filedocumented in this encounter"
--- OUTSIDE RECORDS SUMMARY | ~2020-01-04 | XMS | Encounter Summary ---
Demographics + + + | Address | [address] | | | [place] [address] | + + + | Home Phone | | + + + | Preferred Language | Unknown | + + + | Marital Status | | + + + | Hindu Affiliation | 1027 | + + + | Race | Unknown | + + + | Ethnic Group | Unknown | + + + Author + + + | Author | [facility] | | | and [place] | + + + | Organization | [facility] | | | [...] [place], | | | | | [place] [address] | | + + + + + | Ryan Vogt | ECON | Unknown | | + + + + + | Rob Vogt | ECON | Unknown | | + + + + + Care Team Providers + +------+ + | Care Audio Engineer Name | Role | Phone | + +------+ + | Abrahan Samaniego MD | PCP | | + +------+ + Reason for Visit + + + | Reason | Comments | + + + | ED Follow-up | dizziness, hypertension 09/08/2014 | + + + Encounter Details +--------+---------+ + + + | Date | Type | Department | Care Team | Description | +--------+---------+ + + + | 09/17/ | Office | [facility] | Abrahan Samaniego MD | Elevated blood | | 2014 | Visit | MEDICINE [address] | [address] [facility] | pressure (Primary | | | | [place], | [place] | Dx); | | | | [place] [address] | [address] | Hypercholesteremia; | | | | [phone] | | Panhypopituitarism | | | | | | (HCC) | +--------+---------+ + + + Social History [...] + + + | Blood Pressure | 140/84 | 09/17/2014 2:49 PM | | | | | PDT | | + + + + + | Pulse | 72 | 09/17/2014 2:49 PM | | | | | PDT | | + + + + + | Temperature | - | - | | + + + + + | Respiratory Rate | 16 | 09/17/2014 2:49 PM | | | | | PDT | | + + + + + | Oxygen Saturation | 98% | 09/17/2014 2:49 PM | | | | | PDT | | + + + + + | Inhaled Oxygen | - | - | | | Concentration | | | | + + + + + | Weight | 66.5 kg (146 lb 8 | 09/17/2014 2:49 PM | | | | oz) | PDT | | + + + + + | Height | 160 cm (5' 3") | 09/17/2014 2:49 PM | | | | | PDT | | + + + + + | Body Mass Index | 25.95 | 09/17/2014 2:49 PM | | | | | PDT | | + + + + + documented in this encounter Patient Instructions Patient Instructions Abrahan Samaniego MD - 09/17/2014 3:43 PM PDTCheck BP about 3 days per week and call them in or fax them in around 10/05/14: [phone] Try to limit salt to less than 2000 mg per day documented in this encounter Progress Notes Abrahan Samaniego MD - 09/17/2014 3:29 PM PDT 09/17/2014 Oliva Vogt 1950 History: Oliva Vogt is a 64 y.o. female here for : 1. DIZZINESS: On 09/08/14 she was cooking and she started to feel "dizzy". She says hat it wa sn't vertigo but there was a dysequilibrium. She had assoc headache and she took some APAP a nd then she felt like she might vomit. She laid down and checked her BP and it was 190/102. She took it again and it was about the same. She decided that she should report to the ED. T he ED was really busy and it took some time to get back. The BP was high and they gave her a single dose of clonidine, her BP came down and the symptoms all resolved at that time. She says that they gave her a lisinopril at the end of the visit and told her to see me but I wa s out of the office. She didn't take anything then and she called her silk trimmer Dr Dalia manning. Dr Zee asked her to keep a BP diary. She has been checking in both arms and is concer lesley that they are not the same in both arms. With appropriate wait times before she cheks them, she has been getting 122/65-141/78 on th e right arm wit puente high of 151/90. On the left arm she has been 121/69 to 146/74 with a high of 164/93 and another of 154/89. There are times that the BP's in both arms are nearly iden tical and other times that they are not within 10 points Current Outpatient Rx Name Route Sig Dispense Refill atorvaSTATin (LIPITOR) 10 mg tablet Oral Take 1 tablet by mouth nightly. 90 tablet 3 Calcium Carbonate-Vitamin D 600-125 MG-UNIT TABS Oral [...] exertional pain in the arm/jaw/shoulder/back, peripheral edema. Physical Exam: BP Right tlu788/84 | Pulse 72 | Resp 16 | Ht 1.6 m (5' 3") | Wt 66.452 kg (146 lb 8 oz) | BMI 25.96 kg/m2 | SpO2 98% | ? No BP left arm 140/78 (By MD) GEN: No acute distress. HEENT:EOMI, OP normal CHEST: Clear to auscultation. No wheezes, rales, rhonchi. Normal effort and movement CAR: Rhythm:regular Murmur:no [place]:no JVP:no Pulses:normal radial and carotid ABD: non-distended, non-tender. No hepatosplenomegaly EXT: No clubbing, cyanosis, or edema Assessment: Plan 1. Elevated blood pressure While her readings at home show some discrepancy between arms, I carefully checked them mys elf today and they are nearly identical. We talked about starting the lisinopril that Dr Dalia manning had ordered. Dr Zee had told her to wait until she talked to me. A lot of her readings are actually quite good especially when she started to check it after resting for 10-15 min before checking. Some of them,however, are still a little high. I would like her to check t hem all in the same arm after resting for 10 min. She should do 3 and take the 2 that are th e most similar. She will write these down and then fax them in to me in 1-2 weeks. I think t hat 10 mg of lisinopril may be a little much so I wouls likely start at 2.5 or 5 mg lisinopr il daily. 2. HYPERCHOL: We went over her cholesterol levels. She errantly thought that her LDL was 27 4 when it is actually 174. This is still too high but not nearly as alarming as what she tho ught. We talked about the risk, benefits and side effects of the medications and she would l magda to start on a "low dose" and see how it affects her. A. Lipitor 10 mg po daily 3. PANHYPOPIT: She has been offered GH by Dr Zee. She has been thinking about it. She is also concerned that she may start on it and then not be able to afford it once she hits [facility]. In the end, we decided that she would call and ask Dr Zee to start with the approva l process. More than 25 minutes spent face to face with patient [...] [place] | | | | | | [id number] | | | | | | | | +--------+---------+ + + + | 07/25/ | Office | Cardiology | Renetta, | | | 2020 | Visit | | [facility] [address] | | | | | | [place] | | | | | | [place] [address] | | | | | | [phone] | | | | | | | | +--------+---------+ + + + | 09/03/ | Office | Endocrinology | Cheryl Zee MD | | | 2020 | Visit | | [address] | | | | | | [address] [place] | | | | | | [address] | | | | | | | | +--------+---------+ + + + documented as of this encounter Visit Diagnoses + + | Diagnosis | + + | Elevated blood pressure - Primary Elevated blood pressure reading without diagnosis | | of hypertension | + + | Hypercholesteremia Pure hypercholesterolemia | + + | Panhypopituitarism (HCC) Panhypopituitarism | + + documented in this encounter
--- OUTSIDE RECORDS SUMMARY | ~2020-01-04 | XMS | Encounter Summary ---
Demographics + + + | Address | [address] | | | [place] [address] | + + + | Home Phone [...] Author | [facility] | [...] [place], | | | | | [place] [address] | | + + + + + | Ryan Vogt | ECON | Unknown | | + + + + + | Rob Vogt | ECON | Unknown | | + + + + + Care Team Providers + +------+ + | Care Casting Cleaner Name | Role | Phone | + +------+ + | Abrahan Samaniego MD | PCP | | + +------+ + Reason for Visit + + + | Reason | Comments | + + + | Shoulder Pain | left shoulder x several months | + + + Encounter Details +--------+---------+ + + + | Date | Type | Department | Care Team | Description | +--------+---------+ + + + | 07/28/ | Office | [facility] | Abrahan Samaniego MD | Rotator cuff | | 2012 | Visit | MEDICINE [address] | [address] [place] [address] | tendinitis (Primary | | | | [place], | [place] | Dx) | | | | [place] [address] | [address] | | | | | [phone] | | | +--------+---------+ + + + [...] + + + | Blood Pressure | 138/82 | 07/28/2012 11:07 AM | | | | | PST | | + + + + + | Pulse | 68 | 07/28/2012 11:07 AM | | | | | PST | | + + + + + | Temperature | - | - | | + + + + + | Respiratory Rate | 14 | 07/28/2012 11:07 AM | | | | | PST | | + + + + + | Oxygen Saturation | - | - | | + + + + + | Inhaled Oxygen | - | - | | | Concentration | | | | + + + + + | Weight | 69.4 kg (153 lb) | 07/28/2012 11:07 AM | | | | | PST | | + + + + + | Height | - | - | | + + + + + | Body Mass Index | 27.1 | 05/16/2012 11:10 AM | | | | | PST | | + + + + + documented in this encounter Patient Instructions Patient Instructions Abrahan Samaniego MD - 07/28/2012 11:20 AM PSTFormatting of this note m ight be different from the original. 1. Avoid lifting and reaching repetitively over your head 2. Use Aleve 2 pills 2 times/day for 2 weeks.NSAID (Non-Steroidal Anti-Inflammatory Drug) - You have been prescribed Aleve, an anti-inflammation medication. Take this medication with food. Do not take any other anti-inflammatory medications, such as aspirin or ibuprofen (Vivien otrin, Advil). If you take a daily aspirin for preventative health reasons please continue as usual. Anti-inflammatory medications can cause stomach bleeding. Stop taking this medic ation if you have constant nausea or stomach pain. Understanding Rotator Cuff Injuries The rotator cuff is a team of muscles and connecting tendons in the shoulder. It attaches y our upper arm to your shoulder blade. Your rotator cuff helps you reach, throw, push, pull, and lift. Without it, your shoulder cannot do its job. Overuse tendinitis is irritation, bruising,or fraying of the rotator cuff. A Healthy Rotator Cuff A healthy rotator cuff gives your shoulder flexibility and control. The rotator cuff holds your upper arm bone (humerus) in your shoulder socket (glenoid). It also helps move the shou lder. A Damaged Rotator Cuff Pain and weakness told you that something was wrong with your shoulder. Now you know it s a rotator cuff problem. Rotator cuff tendons can become damaged or inflamed. This is called tendonitis. Possible causes include: Irritation from overuse Pinching (impingement) Calcium deposits (calcification) Tears in the tendon. Making Your Shoulder Healthy Again Care for your shoulder will most likely begin with nonsurgical treatments. You may start wi th simple rest. If needed, you can have pain-soothing injections. Your doctor will tell you how often you may need these treaments. If rest and injections relieve your pain, you will b e given an exercise program. This will help restore your shoulder s power. If your pain ju st won t quit, your doctor may suggest surgery to repair the rotator cuff. [id number] [facility], [address] [place] [address], [place] [address]. All rights reserve d. This information is not intended as a substitute for professional medical care. Always fo llow your healthcare professional's instructions. documented in this encounter Progress Notes Abrahan Samaniego MD - 07/28/2012 11:12 AM PSTFormatting of this note might be different fro m the original. Subjective: Patient ID: Oliva Vogt is a 62 y.o. female. HPI Oliva is having pain in her left shoulder for several months. It is up and down in severity depending on what she does. 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 That meant constantly reach ing up over her head. She is right handed. It hurts to sleep on the shoulder at night, uncomfortable to comb dusty r or reach up above her head. It hurts to reach behind her back and hook her bra or scratch her back. She has tried heat (unhelpful). Ice gives temporary relief. There is no N/T/W. Right now the pain is 0/10 if she doesn't move it. When she does move it it is a 2-3/10 tod ay but it has been as high as a 5-6/10 Patient's medications, allergies, past medical, surgical, social and family histories were reviewed and updated as appropriate. Review of Systems Objective: Physical Exam Shoulder has normal passive and active ROM There is pain with abduction against resist but no weakness The remainder of the rotator cuff has no pain or weakness. + Apley - Reverse Apley No tenderness to palp Reflexes normal Strength o/w normal in the arm Assessment: 1. Rotator cuff tendinitis Plan: Aleve 2 pills bid for 2 weeks. Given written warnings regarding NSAIDS. If not better in 2 weeks then call and I will refer to ortho. More than 15 minutes spent face to face with patient of which over 50% was in counseling documented in this en counter Plan of Treatment +--------+---------+ + + + | Date | Type | Specialty | Care Team | Description | +--------+---------+ + + + | 04/29/ | Office | Internal Medicine | Abrahan Samaniego MD | | | 2019 | Visit | | [address] [place] [address] | | | | | | [place] | | | | | | [address] | | | | | | | | +--------+---------+ + + + | 07/25/ | Office | Cardiology | Renetta, | | | 2020 | Visit | | [facility] [address] | | | | | | [place] | | | | | | [place] [address] | | | | | | [phone] | | | | | | | | +--------+---------+ + + + | 09/03/ | Office | Endocrinology | Cheryl Zee MD | | | 2020 | Visit | | [address] [place] | | | | | | [address] [place] | | | | | | [address] | | | | | | | | +--------+---------+ + + + documented as of this encounter Visit Diagnoses + + | Diagnosis | + + | Rotator cuff tendinitis - Primary Disorders of bursae and tendons in shoulder region, | | unspecified | + + documented in this encounter"
--- OUTSIDE RECORDS SUMMARY | ~2020-01-04 | XMS | Encounter Summary ---
Demographics + + + | Address | [address] | | | [place] [address] | + + + | Home Phone | | + + + | Preferred Language | Unknown | + + + | Marital Status | | + + + | Muslim Affiliation | 1027 | + + + | Race | Unknown | + + + | Ethnic Group | Unknown | + + + Author + + + | Author | [facility] | | | and [place] | + + + | Organization | [facility] | | | [...] [place], | | | | | [place] [address] | | + + + + + | Ryan Vogt | ECON | Unknown | | + + + + + | Rob Vogt | ECON | Unknown | | + + + + + Care Team Providers + +------+ + | Care Warehouse Lead Name | Role | Phone | + +------+ + | Abrahan Samaniego MD | PCP | | + +------+ + Reason for Visit + +--------+ + | Reason | Onset | Comments | | | Date | | + +--------+ + | Letter for | 09/14/ | | | School/Work | 2020 | | + +--------+ + Encounter Details +--------+ + + + + | Date | Type | Department | Care Team | Description | +--------+ + + + + | 09/14/ | Telephone | [facility] | Abrahan Samaniego MD | Letter for | | 2019 | | [address] | [address] [place] [address] | School/Work | | | | [place], | [place] | | | | | [place] [address] | [address] | | | | | [phone] | | | +--------+ + + + [...] Notes Telephone Encounter - Harry Mark - 09/18/2019 12:30 PM PDTPatient in to medicinal plant picker letter. elepho ne Encounter - Dawna Seo - 09/18/2019 8:28 AM PDTPatient notified letter is ready for medicinal plant picker at check out desk. 8: 30 AM PDTTelephone Encounter - Wendi Thomas RN - 09/18/2019 8:00 AM PDTLeft message fo r patient to medicinal plant picker letter at restaurant front manager. Electronically signed by Wendi Thomas RN at 0 09/18/2019 8:01 AM PDTTelephone Encounter - Abrahan Samaniego MD - 09/16/2019 8:26 AM PDTLett er is done and signed She can pick it up ele phone Encounter - Wendi Thomas RN - 09/15/2019 1:51 PM PDTCalled Oliva and informed he r Dr. Samaniego is out of the office today, but a message has been sent to him. Once the lette r is written she will be notified. Okay per Oliva. elephone Encounter - Kathy Carty - 09/15/2019 1:25 PM PD TLaura called to check on the letter for work that she is needing for Wednesday. Please advise. She can be reached at [phone]. 1 :26 PM PDTTelephone Encounter - Wendi Thomas RN - 09/15/2019 8:35 AM PDTWill route to Dr. Samaniego to discuss and a return call will be made. elephone Encounter - Priya Walls - 09/15/2019 8:1 0 AM PDTPatient called asking to speak with the nurse. Patient stated her job is considerin g letting her stay home from work due to being in the high risk category but she is needing a letter today to get to them before Wednesday. Please call patient to advise.Electronically s igned by Priya Walls at 09/15/2019 8:13 AM PDTdocumented in this encounter Plan of Treatment +--------+---------+ + + + | Date | Type | Specialty | Care Team | Description | +--------+---------+ + + + | 04/29/ | Office | Internal Medicine | Abrahan Samaniego MD | | | 2019 | Visit | | [address] [place] [address] | | | | | | [place] | | | | | | [address] | | | | | | | | +--------+---------+ + + + | 07/25/ | Office | Cardiology | Renetta, | | | 2020 | Visit | | [facility] [address] | | | | | | [place], | | | | | | [place] [address] | | | | | | [phone] | | | | | | | | +--------+---------+ + + + | 09/03/ | Office | Endocrinology | Cheryl Zee MD | | | 2020 | Visit | | [address] | | | | | | [address] [place] | | | | | | [phone] | | | | | | | [...]
--- OUTSIDE RECORDS SUMMARY | ~2020-01-04 | XMS | Encounter Summary ---
Demographics + + + | Address | [address] | | | [place] [address] | + + + | Home Phone | | + + + | Preferred Language | Unknown | + + + | Marital Status | | + + + | Rastafari Affiliation | 1027 | + + + | Race | Unknown | + + + | Ethnic Group | Unknown | + + + Author + + + | Author | [facility] | | | and [place] | + + + | Organization | [facility] | [...] [place], | | | | | [place] [address] | | + + + + + | Ryan Vogt | ECON | Unknown | | + + + + + | Rob Vogt | ECON | Unknown | | + + + + + Care Team Providers + +------+ + | Care Audio Visual Technician Name | Role | Phone | [...] | Endocrinology | Diagnoses | [place], | [facility] | | | Services | | | Abrahan Cortez MD | [facility] | | | Required | | Hypothyroidi | [address] | CL[address] | | | | | [address] | [address] | | | | | syndrome | [place], | [place], [place] | | | | | ([facility]) | [place] [address] | Phone: | | | | | Hyperlipidem | Phone: | [phone] | | | | | ia Adrenal | [phone] | | | | | | insufficienc | Fax: | | | | | | y ([facility]) | [phone] | | +--------+ + + + + + Evaluate & Treat (Routine) [...] Rehabilitatio | [address] | [address] | [place] | | | | n | (ICD-9-CM) - | STREET | [place], | | | | | Cervicalgia | [place], | [place] [address] | | | | | Procedures | [place] [address] | Phone: | | | | | pt eval | Phone: | [phone] | | | | | | [phone] | Fax: | | | | | | Fax: | [phone] | | | | | | [phone] | | +--------+ + + + + + Reason for Visit + + + | Reason | Comments | + + + | Neck Pain | | + + + Encounter Details +--------+---------+ + + + | Date | Type | Department | Care Team | Description | +--------+---------+ + + + | 06/21/ | Office | [facility] | Abrahan Samaniego MD | Cervicalgia (Primary | | 2015 | Visit | [address] | [address] [place] [address] | Dx); Chronic low | | | | [address]VE [place], | [place], [place] | back pain; | | | | [place] [address] | [address] | Hypothyroidism; | | | | [phone] | | MIROSLAVA SYNDROME; | | | | | | Hyperlipidemia; | | | | | | Adrenal | | | | | | insufficiency | +--------+---------+ + + + Social History [...] + + + | Blood Pressure | 110/64 | 06/21/2014 3:36 PM | | | | | PST | | + + + + + | Pulse | 85 | 06/21/2014 3:36 PM | | | | | PST | | + + + + + | Temperature | - | - | | + + + + + | Respiratory Rate | - | - | | + + + + + | Oxygen Saturation | 99% | 06/21/2014 3:36 PM | | | | | PST | | + + + + + | Inhaled Oxygen | - | - | | | Concentration | | | | + + + + + | Weight | 67.1 kg (148 lb) | 06/21/2014 3:36 PM | | | | | PST | | + + + + + | Height | 160 cm (5' 3") | 06/21/2014 3:36 PM | | | | | PST | | + + + + + | Body Mass Index | 26.22 | 06/21/2014 3:36 PM | | | | | PST | | + + + + + documented in this encounter Progress Notes Abrahan Samaniego MD - 06/21/2014 4:00 PM PST Subjective: Patient ID: Oliva Vogt is a 64 y.o. female. HPI 1. STIFF NECK: She has had about 3 weeks of stiff neck. It is worse when she turns it to th e right but also bothers to turn to the left. She has a difficult time driving because it is hard to do head checks. She has no numbness, tingling or weakness in the arms. She has been to a massage therapist for her back previously and it was helpful. She wonders if it might help her neck. At work she is up and done. 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 At her desk she is doing a lot of computer work and she has pr ojects that have her looking down and up frequently. She has tried Christiano Watson which didn't help. The heat from a hot shower feels good but is very temporary. 2. VISION CHANGES: in 01/18 she had flashes of light in her vision. She recalls that the fla shes were on the right side. She was afraid of stroke so she went to the ED where they had a stroke w/u and sent her home. She then went to her eye doctor the next day and was told sandra t there wasn't anything that they could see. He then went to the [facility] to get a second opinion and he couldn't see anything either. He had her back in f/u yesterday and she had a very difficult time with her right eye and they could only get her corrected to 20/40 best v ision. He wanted her to go and see a specialist in [place] (Dr Carney). She is supposed t o see Dr Da Silva a week from tomorrow. Patient's medications, allergies, past medical, surgical, social histories were reviewed an d updated as appropriate. Review of Systems Chronic low back pain without radicular symptoms Objective:BP 110/64 | Pulse 85 | Ht 1.6 m (5' 3") | Wt 67.132 kg (148 lb) | BMI 26.22 kg/m2 | SpO2 99% Physical Exam GEN: No acute distress. HEENT:EOMI, OP normal CHEST: Clear to auscultation. No wheezes, rales, rhonchi. Normal effort and movement CAR: Rhythm:regular Murmur:no Jese:no JVP:no Pulses:normal radial and carotid ABD: non-distended, non-tender. No hepatosplenomegaly EXT: No clubbing, cyanosis, or edema Neck: Normal flexion. Normal extension. Able to rotate to the right about 15. To the l eft approximately 60. No tenderness to palpation. Strength is 5/5 in the deltoids, biceps, triceps, wrist extensors, wrist flexors, interosse i. Sensation is normal Reflexes: Triceps: Left 1 Right1 Biceps: Left1 Right1 Brachioradialis: Left 1 Right1 No muscle atrophy Strength is 5/5 in the hip flexors, quadriceps, biceps femoris, anterior tibialis, gastrocn emius muscles, and hallisus longus, ankle inverters, ankle everters. Sensation in tact No atrophy Reflexes: L4: Left:2 Right: 2 S1: Left:1 Right: 1 Assessment:PLAN 1. Cervicalgia I suspect that this is all mechanical. I think that she'll likely respond well to physical therapy. I'm recommending only Tylenol for pain. Avoidance of nonsteroid al anti-inflammatories and aspirin or anything that can increase her risk of hemorrhage unti l they can better determine what's going on in her eye. * [facility] - AMB Referral XR Cervical Spine 4 or 5 Vws 2. Chronic low back pain physical therapy 3. 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 She has been followed by endocrinology previously but the pointing machine operator moved. Fortunately, she is moving to [place] where Oliva and her go every week to visit their son. I'm putting a referral in for her to see Dr. Zee up there and to continue her care with Dr. Norma lopez. 4. MIROSLAVA SYNDROME 5. Hyperlipidemia Ambulatory referral to Endocrinology 6. Adrenal insufficiency Ambulatory referral to Endocrinology documented in this enc ounter Plan of [...] | | | | | | [place] [address] | | | | | | [phone] | | | | | | | | +--------+---------+ + + + | 09/03/ | Office | Endocrinology | Cheryl Zee MD | | | 2020 | Visit | | [address] | | | | | | [address] [place] | | | | | | [id number] | | | | | | | [...] Ambulatory referral | Outpatient | Routin | Hypothyroidism | Ordered: 06/21/2014 | | to Endocrinology | Referral | e | MIROSLAVA SYNDROME | | | | | | Hyperlipidemia | | | | | | Adrenal | | | | | | insufficiency | | + + +--------+ + + documented as of this encounter Results XR Cervical Spine 4 [...] + | MISCELLANEOUS LAB | | | [phone] | + +---------+ + + | MISCELANIOUS LAB | | | [phone] | + +---------+ + + documented in this encounter Visit Diagnoses + + | Diagnosis | + + | Cervicalgia - Primary | + + | Chronic low back pain Lumbago | + + | Hypothyroidism Unspecified hypothyroidism | + + | MIROSLAVA SYNDROME Panhypopituitarism | + + | Hyperlipidemia Other and unspecified hyperlipidemia | + + | Adrenal insufficiency Glucocorticoid deficiency | + + documented in this encounter
--- OUTSIDE RECORDS SUMMARY | ~2020-01-04 | XMS | Encounter Summary ---
Demographics + + + | Address | [address] | | | [place] [address] | + + + | Home Phone | | + + + | Preferred Language | Unknown | + + + | Marital Status | | + + + | Confucianist Affiliation | 1027 | + + + | Race | Unknown | + + + | Ethnic Group | Unknown | + + + Author + + + | Author | [facility] | | [...] [place], | | | | | [place] [address] | | + + + + + | Ryan Vogt | ECON | Unknown | | + + + + + | Rob Vogt | ECON | Unknown | | + + + + + Care Team Providers + +------+ + | Care Rail Tractor Operator Name | Role | Phone | + +------+ + | Abrahan Samaniego MD | PCP | | + +------+ + Encounter Details +--------+---------+ + + + | Date | Type | Department | Care Team | Description | +--------+---------+ + + + | 11/15/ | Office | [facility] | Abrahan Samaniego MD | Skull lesion | | 2012 | Visit | MEDICINE [address] | [address] [facility] | (Primary Dx) | | | | [place], | [place] | | | | | [place] [address] | [address] | | | | | [phone] | | | +--------+---------+ + + + [...] + + + | Blood Pressure | 116/62 | 11/15/2012 11:25 AM | | | | | PDT | | + + + + + | Pulse | 67 | 11/15/2012 11:25 AM | | | | | PDT | | + + + + + | Temperature | - | - | | + + + + + | Respiratory Rate | 14 | 11/15/2012 11:25 AM | | | | | PDT | | + + + + + | Oxygen Saturation | 98% | 11/15/2012 11:25 AM | | | | | PDT | | + + + + + | Inhaled Oxygen | - | - | | | Concentration | | | | + + + + + | Weight | 75.8 kg (167 lb) | 11/15/2012 11:25 AM | | | | | PDT | | + + + + + | Height | - | - | | + + + + + | Body Mass Index | 29.58 | 11/03/2012 10:03 AM | | | | | PDT | | + + + + + documented in this encounter Progress Notes Abrahan Samaniego MD - 11/15/2012 11:54 AM PDTDictated [id number] signed by Abrahan gallegos MD at 11/15/2012 11:54 AM Abrahan Ackerman MD - 11/15/2012 12:00 AM PDT INTERNAL MEDICINE [address] [place], [place] [address] [id number] FAX: [phone] OFFICE VISIT Oliva is in clinic today for followup of her MRI. 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 Brooks up at [facility]. The MRI was don e per his recommendation. The MRI shows sclerotic change in the right frontal bone, which h as progressed as compared with 2010. We have looked at her scans today. A letter is drafted to Dr. Brooks regarding what he would like to see as far as followup g oes with her or if he would just like to review the films and then decide on followup. Approximately 10 minutes was spent face to face with the patient going over the MRI and di scussing options. Abrahan Samaniego MD J / TB JOB #: [id number] signed by Abrahan Samaniego MD at 11/16/2012 8:34 AM PDTdocument ed in this encounter Plan of Treatment +--------+---------+ + + + | Date | Type | Specialty | Care Team | Description | +--------+---------+ + + + | 04/29/ | Office | Internal Medicine | Abrahan Samaniego MD | | | 2019 | Visit | | [address] [place] [address] | | | | | | [place] | | | | | | [id number] | | | | | | | | +--------+---------+ + + + | 07/25/ | Office | Cardiology | Renetta, | | | 2020 | Visit | | [facility] [address] | | | | | | [place], | | | | | | [place] [address] | | | | | | [phone] | | | | | | | | +--------+---------+ + + + | 09/03/ | Office | Endocrinology | Cheryl Zee MD | | | 2020 | Visit | | [address] [place] | | | | | | [address] [place] | | | | | | [id number] | | | | | | | | +--------+---------+ + + + documented as of this encounter Visit Diagnoses + + | Diagnosis | + + | Skull lesion - Primary Disorder of bone and cartilage, unspecified | + + documented in this encounter"
--- OUTSIDE RECORDS SUMMARY | ~2020-01-04 | XMS | Encounter Summary ---
Demographics + + + | Address | [address] | | | [place] [address] | + + + | Home Phone | | + + + | Preferred Language | Unknown | + + + | Marital Status | | + + + | Rastafarian Affiliation | 1027 | + + + | Race | Unknown | + + + | Ethnic Group | Unknown | + + + Author + + + | Author | [facility] | | | and [place] | + + + | Organization | [facility] | | | [...] [place], | | | | | [place] [address] | | + + + + + | Ryan Vogt | ECON | Unknown | | + + + + + | Rob Vogt | ECON | Unknown | | + + + + + Care Team Providers + +------+ + | Care Mail Room Name | Role | Phone | + +------+ + | Abrahan Samaniego MD | PCP | | + +------+ + Reason for Visit + +--------+ + | Reason | Onset | Comments | | | Date | | + +--------+ + | Medication Question | 10/10/ | | | | 2015 | | + +--------+ + Encounter Details +--------+ + + + + | Date | Type | Department | Care Team | Description | +--------+ + + + + | 10/10/ | Telephone | [facility] | Abrahan Samaniego MD | Medication Question | | 2015 | | [address] | [address] [facility] | | | | | [place], | [place] | | | | | [place] [address] | [address] | | | | | [phone] | | | +--------+ + + + [...] Telephone Encounter - Christina Wilson LPN - 10/11/2015 9:01 AM PDTT/C to patient- advised Thyroid medication was not ordered by this office and that she should contact her endocrino logist's office. Also advised, we do not have a recent TSH in her chart (last done . She will contact their office and let us know if she needs filled here. elephone Encounter - Edelmira Cardenas - 8:21 AM PDTContact/Caller: Oliva Contact Number: [phone] Provider/Nurse: Dr. Samaniego Reason for Call: Patient called and asked to please have a nurse call her back in regards t o her Synthroid. She stats that she went to pick pulling machine operator her Thyroid medication. The pharmacy dewayne led it with the name brand and not the Generic. Last Appointment: 06/27/2015 Next Appointment: None doc umtonya in this encounter Plan of Treatment +--------+---------+ + + + | Date | Type | Specialty | Care Team | Description | +--------+---------+ + + + | 04/29/ | Office | Internal Medicine | Abrahan Samaniego MD | | | 2019 | Visit | | [address] | | | | | | [place] | | | | | | [address] | | | | | | | | +--------+---------+ + + + | 07/25/ | Office | Cardiology | Renetta, | | | 2020 | Visit | | [facility] | | | | | | [place] | | | | | | [place] [address] | | | | | | [phone] | | | | | | | | +--------+---------+ + + + | 09/03/ | Office | Endocrinology | Cheryl Zee MD | | | 2020 | Visit | | [address] [place] | | | | | | [address] [place] | | | | | | [address] | | | | | | | | +--------+---------+ + + + documented as of this encounter Visit Diagnoses Not on filedocumented in this encounter"
--- OUTSIDE RECORDS SUMMARY | ~2020-01-04 | XMS | Encounter Summary ---
Demographics + + + | Address | [address] | | | [place] [address] | + + + | Home Phone | | + + + | Preferred Language | Unknown | + + + | Marital Status | | + + + | Hoahaoism Affiliation | [id number] | + + + | Race | Unknown | + + + | Ethnic Group | Unknown | + + + Author + + + | Author | [facility] | | | and [place] | + + + | Organization | [facility] | | [...] [place], | | | | | [place] [address] | | + + + + + | Ryan Vogt | ECON | Unknown | | + + + + + | Rob Vogt | ECON | Unknown | | + + + + + Care Team Providers + +------+ + | Care Jtac Name | Role | Phone | + +------+ + | Julisa Boogie MD | PCP | | + +------+ + Reason for Visit + + + | Reason | Comments | + + + | Dizziness | | + + + Encounter Details +--------+ + + + + | Date | Type | Department | Care Team | Description | +--------+ + + + + | 09/23/ | Emergency | [facility] | Adam Padilla S, | Peripheral | | 2019 | | [facility] | MD [address] | positional vertigo, | | | | CENTER [address] | [place], [place] | unspecified | | | | [place], [place] | [address] | laterality (Primary | | | | [address] | | Dx); Hx of adrenal | | | | [phone] | | insufficiency; | | | | | | Panhypopituitarism | | | | | | ([facility]) | +--------+ + + + + Social [...] + + + | Blood Pressure | 128/61 | 09/23/2018 2:43 PM | | | | | PDT | | + + + + + | Pulse | 75 | 09/23/2018 2:43 PM | | | | | PDT | | + + + + + | Temperature | 36.8 C (98.2 F) | 09/23/2018 2:43 PM | | | | | PDT | | + + + + + | Respiratory Rate | 16 | 09/23/2018 2:43 PM | | | | | PDT | | + + + + + | Oxygen Saturation | 97% | 09/23/2018 2:43 PM | | | | | PDT | | + + + + + | Inhaled Oxygen | - | - | | | Concentration | | | | + + + + + | Weight | 68 kg (150 lb) | 09/23/2018 2:43 PM | | | | | PDT | | + + + + + | Height | 162.6 cm (5' 4") | 09/23/2018 2:43 PM | | | | | PDT | | + + + + + | Body Mass Index | 25.75 | 09/23/2018 2:43 PM | | | | | PDT | | + + + + + documented in this encounter Discharge Instructions AttachmentsThe following attachments cannot be sent through Care Everywhere.Dizziness (Vert igo) with Medicines, Managing (Ivorian)Ear, Inner: Causes of Dizziness (Vertigo) (Ivorian)do cumented in this encounter Medications at Time of [...] | 3 | 08/27/19 | | | (LIPITOR) 10 mg | mouth AT NIGHT | tablet | | 19 | 9 | | tablet | | | | | | + + + +---------+ + + | | Take by mouth. | | 0 | | | | Papgdxr-Ovkwcedpt-Kz | | | | | 9 | | idalia D (CALCIUM | | | | | [...] documented as of this encounter ED Notes Brianne Mendez RN - 09/23/2018 5:08 PM PDTDC instructions given. Home in stable conditio n. acob Sunshine RN - 09/23/2018 3:51 PM PDTC/o dizziness for 1 week. States the dizzines is worse whe turning head to right, bending over and when looking up. Had episode of HTN 5 days ago.Electronical ly signed by Jacob Sunshine RN at 09/23/2018 3:54 PM PDTAdam Padilla MD - 09/23/2018 3:44 PM PDT [facility] Oliva Vogt Emergency Department Encounter Note [address] [place] [address] PCP:Julisa Boogie MD [phone] DIAGNOSIS: ICD-10-CM ICD-9-CM 1. Peripheral positional vertigo, unspecified laterality H81.399 386.11 2. Hx of adrenal insufficiencyChronic Z86.39 V12.29 3. 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 female who presents to the Emergency Department presents to the ED with intermittent episodes of dizziness which she notes are most prominent when she has p osition change. Is been going on for about 10-12 days. She reports it has gotten a little bit more noticeable during the daytime over the last few days. She did see her endocrinolog ist who manages her panhypopituitary is him in [place]. And at the time she was reported to have some pedal edema and was told by her slip laster to decrease salt intake to help w ith that. She has cut out all herself including some limitations on her p.o. Intake. No recent falls or injuries. No new medications or pills. No fevers or chills. PAST MEDICAL & SURGICAL HISTORY Past Medical History: Diagnosis Date Adrenal insufficiency (HCC) 05/16/2012 DDD (degenerative disc disease), lumbar Dupuytren's fracture [...] Tinnitus Past Surgical History: Procedure Laterality Date CHOLECYSTECTOMY COLONOSCOPY 03/12/2014 COLONOSCOPY; Laterality: N/A; Surgeon: Shaji Thornton MD; Location: [facility] MEDICAL PROCEDU RE UNIT CYST REMOVAL Left 1970 ENDOMETRIAL BIOPSY 2006 Benign Skull Biopsy 09/28/2011 (Benign) TUBAL LIGATION Bilateral CURRENT MEDICATIONS TRACK PATROL & RX Medications Medication Sig atorvaSTATin (LIPITOR) 10 mg tablet take 1 tablet by mouth AT NIGHT Hsudosl-Jyliibukj-Jsltcem D (CALCIUM MAGNESIUM PO) Take by mouth. cholecalciferol (CHOLECALCIFEROL) 1000 units TABS Take 1 tablet by mouth Daily. levothyroxine (SYNTHROID) 100 mcg tablet Take 1 tablet by mouth every morning (before b reakfast). potassium chloride (KLOR-CON) 10 mEq CR tablet take 1 tablet by mouth once daily predniSONE (DELTASONE) 1 mg tablet One daily for total 6 mg daily predniSONE (DELTASONE) 5 mg tablet One daily most days, increase to 3 tabs daily for 3 days when sick ALLERGIES Allergies Allergen Reactions Succinylcholine Chloride Other (See Comments) Hard to wake up FAMILY AND SOCIAL HISTORY Family History Problem Relation Age of Onset High blood pressure Mother 84 of Aortic dissection Other (see comment) Father 74 of hemorrgagic CVA Stroke Father Arthritis Father Lung cancer Maternal Grandfather Abdominal aortic aneurysm Brother Lung cancer Sister Social History Socioeconomic History Marital status: Spouse name: Not on file Number of children: Not on file Years of education: Not on file Highest education level: Not on file Tobacco Use Smoking status: Never Smoker Smokeless tobacco: Never Used Substance and Sexual Activity Alcohol use: No Drug use: No Sexual activity: Never Social History Narrative . 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 She works at the [employer]. She doesn't exerc ise because she is so busy with her grands and her son has also been ill and was having to l tameka with her until just recently. They have a mobile home park which they are selling. 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 REVIEW OF SYSTEMS As in history of present illness. A 10 system review was otherwise negative. PHYSICAL EXAM VITAL SIGNS: (first vital signs):Temp: 36.8 C (98.2 F) Pulse: 75 Resp: 16 SpO2: 97 % BP : 128/61 Body mass index is 25.75 kg/m. General: Alert, no active distress and not requiring any emergent interventions Eyes: Normal inspection, pupils equal and round, non-icteric sclera ENT: Ears normal Nose normal Pharynx normal Neck: Normal inspection Supple Full ROM Cardiovascular: Normal rate and rhythm, no extra sounds No murmurs rubs or gallops Focal PMI Respiratory: No respiratory distress or wheezing Normal excursion No retractions Abdomen: Soft, non-tender, non-distended Normal active bowel sounds Back: Normal inspection Without tenderness or deformity Skin: Color normal Warm and dry Extremities: SANDHU with equal pulses in the upper and lower extremities bilaterally No pedal edema Neuro: No gross motor/sensory deficit GCS 15 No cerebellar deficits Alert and oriented to person, place, time and situation. EKG 15:46 Normal sinus rhythm at 74 Normal KS and JENS Normal QRS and [place] Normal QT and QTc Normal ST/T without acute ischemic changes An EKG dated is unchanged in comparison to the EKG obtained today. Interpreted by Adam Padilla DO. LABS Results for orders placed or performed during the hospital encounter of 09/23/18 CBC w/ Auto Differential Result Value Ref Range WBC 6.3 4.0 - 11.0 K/uL RBC 4.73 3.70 - 5.20 M/uL Hemoglobin 13.9 11.5 - 16.0 g/dL Hematocrit 42.7 34.0 - 47.0 % MCV 90.3 83.0 - 101.0 fL MCH 29.4 28.0 - 35.0 pg MCHC 32.6 32.0 - 36.0 g/dL RDW-CV 13.1 <15.0 % RDW-SD 43.6 35.1 - 46.3 fL Platelet Count 194 140 - 440 K/uL MPV 10.5 6.5 - 12.4 fL Immature Platelet Fraction 6.7 0.9 - 11.2 % % Neutrophils 40.3 (L) 45.0 - 82.0 % % Lymphocytes 44.4 20.0 - 45.0 % % Monocytes 12.3 (H) 4.0 - 12.0 % % Eosinophils 1.9 0.0 - 5.0 % % Basophils 0.8 0.0 - 1.0 % % Immature Granulocytes 0.3 0.0 - 0.4 % Absolute Neutrophils 2.52 1.80 - 8.50 K/uL Absolute Lymphocytes 2.78 0.60 - 3.20 K/uL Absolute Monocytes 0.77 0.00 - 1.00 K/uL Absolute Eosinophils 0.12 0.00 - 0.40 K/uL Absolute Basophils 0.05 0.00 - 0.10 K/uL Absolute Immature Granulocytes 0.02 0.00 - 0.03 K/uL % nRBC 0 0 - 2 per 100 WBCs Absolute nRBC 0.00 0.00 - 0.01 K/uL Comprehensive Metabolic Panel Result Value Ref Range Na 140 136 - 145 mmol/L K 3.4 3.4 - 5.1 mmol/L Cl 107 98 - 107 mmol/L CO2 27 20 - 31 mmol/L Anion Gap 6 3 - 16 mmol/L Glucose 81 60 - 106 mg/dL BUN 22 9 - 23 mg/dL Creatinine 0.97 0.55 - 1.02 mg/dL eGFR if not 57 (L) >=60 mL/min/1.73m2 Ca 9.2 8.7 - 10.4 mg/dL Albumin 4.0 3.2 - 4.8 g/dL Bilirubin Total 0.4 0.3 - 1.2 mg/dL Total Protein 5.9 5.7 - 8.2 g/dL AST 24 0 - 34 U/L ALT 26 10 - 49 U/L Alkaline Phosphatase 66 46 - 116 U/L Globulin 1.9 (L) 2.1 - 3.8 g/dL Albumin/Globulin Ratio 2.1 (H) 0.8 - 1.9 BUN/Creatinine Ratio 22.7 Urinalysis with Microscopic with Culture if Indicated Result Value Ref Range Color Yellow Light Yellow, Yellow, Straw Clarity Hazy (A) Clear pH, Urine 5.0 5.0 - 8.0 Specific [place] 1.021 1.001 - 1.030 Protein, Urine Negative Negative Blood, Urine Negative Negative Glucose, Urine Negative Negative Ketones, Urine Negative Negative Bilirubin, Urine Negative Negative Nitrite, Urine Negative Negative Leukocyte Esterase, Urine Small (A) Negative Urobilinogen, Urine Negative 0.2 mg/dL, 1.0 mg/dL, Negative WBC UA 2-5 (A) 0 - 2 /HPF RBC UA 0-2 0 - 2 /HPF SQUAMOUS EPITHELIAL UA 2-5 (A) 0 - 2 /LPF BACTERIA UA Negative Negative /HPF MUCUS UA Present (A) Negative /LPF TRIPHOSPHATE CRYSTALS UA Few (A) None Seen /HPF URINE COMMENT Urine Culture Not Indicated Extra Green Top Tube Result Value Ref Range Extra Green Top Tube Done Extra Blue Top Tube Result Value Ref Range Extra Blue Top Tube Done ECG 12 lead Result Value Ref Range VENTRICULAR RATE EKG 74 BPM ATRIAL RATE 74 BPM P-R INTERVAL 172 ms QRS DURATION 88 ms Q-T INTERVAL 382 ms Q-T INTERVAL (CORRECTED) 424 ms P WAVE AXIS 61 degrees QRS AXIS -6 degrees T AXIS 71 degrees INTERPRETATION TEXT Normal sinus rhythm RSR' or QR pattern in V1 suggests right ventricular conduction delay No previous ECGs available Confirmed by CHUYITA MONTIEL, JULISA ([id number]) on 09/24/2018 7:56:23 AM IMAGING STUIDES (X-Rays interpreted by ED Physician) No results found for this or any previous visit (from the past 360 hour(s)). ED COURSE & MEDICAL DECISION MAKING Pertinent Labs & Imaging studies were reviewed along with EMS notes and [facility] record s if applicable. (See chart for details) Medications and Allergy list reviewed. Nurses note and old records were reviewed 15:44 The patient was seen and examined, no acute process with unremarkable examination. I will order cbc, cmp and uai. Her EKG is normal and unchanged from previous EKG 2014. Positio nal vertigo with concerns for viral illness, dehydration moderate, vertebral artery or acute internal carotid artery occlusion nor dissection. No bruit. No acute process noted. No acut e injuries. No recent chiropractic manipulation. No recent falls nor injuries. I have discussed my clinical impression and treatment plan with the pt. We have specificall y discussed the signs and symptoms that would constitute the need for an immediate return to the ED, the importance of continued outpatient f/u and the importance of compliance with th e d/c instructions. I have answered any questions that the pt has to the best of my ability. Based upon the pt s history, physical exam, ED course, and diagnostic studies, I feel sandra t there is no current emergent medical condition that warrants admission, transfer, or furth er ED treatment at this time. Last Set of Vital Signs: Temp: 36.8 C (98.2 F) Pulse: 75 Resp: 16 SpO2: 97 % BP: 128/61 Medications - No data to display Vitals: 09/23/18 1443 BP: 128/61 Pulse: 75 Resp: 16 Temp: 36.8 C (98.2 F) TempSrc: Oral SpO2: 97% Weight: 68 kg (150 lb) Height: 1.626 m (5' 4") FINAL IMPRESSION ICD-10-CM ICD-9-CM 1. Peripheral positional vertigo, unspecified laterality H81.399 386.11 2. Hx of adrenal insufficiencyChronic Z86.39 V12.29 3. 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 Specialty: Internal Medicine Why: Please call today to arrange follow-up in the next 5-7 days for your ED visit Contact information: [address] [facility] [id number] [facility]. Specialty: Emergency Medicine Why: As needed Contact information: [place] [facility] [phone] Discharge Medication List as of 09/23/2018 17:03 Adam Padilla. This document has been prepared with a voice recognition system. The possibility of "sound alike" core assembly supervisor errors, addition and/or deletions may occur. If there is any question p lease contact the author of the document. Adam Padilla MD 09/24/18 2099 documented in this encounter Plan of Treatment +--------+---------+ + + + | Date | Type | Specialty | Care Team | Description | +--------+---------+ + + + | 04/29/ | Office | Internal Medicine | Julisa Boogie MD | | | 2019 | Visit | | [address] | | | | | | [place] | | | | | | [address] | | | | | | | | +--------+---------+ + + + | 07/25/ | Office | Cardiology | Renetta, | | | 2020 | Visit | | PARKER Harris [address] | | | | | | [place], | | | | | | [place] [address] | | | | | | [phone] | | | | | | | | +--------+---------+ + + + | 09/03/ | Office | Endocrinology | Cheryl Zee MD | | | 2020 | Visit | | [address] | | | | | | [address] [place] | | | | | | [address] | | | | | | | | +--------+---------+ + + + documented as of this encounter Procedures + +--------+ + + + | Procedure Name | Priori | Date/Time | Associated Diagnosis | Comments | | | ty | | | | + +--------+ + + + | URINALYSIS WITH | STAT | 09/23/2018 | | Results for this | | MICROSCOPIC WITH | | 4:22 PM | | procedure are in the | | CULTURE IF INDICATED | | PDT | | results section. | + +--------+ + + + | EXTRA GREEN TOP TUBE | STAT | 09/23/2018 | | Results for this | | | | 4:15 PM | | procedure are in the | | | | PDT | | results section. | + +--------+ + + + | EXTRA BLUE TOP TUBE | STAT | 09/23/2018 | | Results for this | | | | 4:15 PM | | procedure are in the | | | | PDT | | results section. | + +--------+ + + + | CBC W/AUTO | STAT | 09/23/2018 | | Results for this | | DIFFERENTIAL | | 4:13 PM | | procedure are in the | | | | PDT | | results section. | + +--------+ + + + | COMPREHENSIVE | STAT | 09/23/2018 | | Results for this | | METABOLIC PANEL | | 4:13 PM | | procedure are in the | | | | PDT | | results section. | + +--------+ + + + | ECG 12 LEAD | STAT | 09/23/2018 | | Results for this | | | | 2:56 PM | | procedure are in the | | | | PDT | | results section. | + +--------+ + + + documented in this encounter Results Urinalysis with Microscopic with Culture if Indicated (09/23/2018 4:22 PM PDT) + + + + + + | Component | Value | Ref Range | Performed | Pathologist | | | | | At | Signature | + + + + + + | Color, | Yellow | Light Yellow, | [facility] | | | Urine | | Yellow, Straw | [facility] | | | | | | MEDICAL | | | | | | CENTER - | | | | | | LABORATORY | | + + + + + + | Clarity, | Hazy (A) | Clear | [facility] | | | Urine | | | [facility] | | | | | | MEDICAL | | | | | | CENTER - | | | | | | LABORATORY | | + + + + + + | pH, Urine | 5.0 | 5.0 - 8.0 | [facility] | | | | | | [facility] | | | | | | MEDICAL | | | | | | CENTER - | | | | | | LABORATORY | | + + + + + + | Specific | 1.021 | 1.001 - 1.030 | [facility] | | | [place], | | | [facility] | | | Urine | | | MEDICAL | | | | | | CENTER - | | | | | | LABORATORY | | + + + + + + | Protein, | Negative | Negative | [facility] | | | Urine | | | [facility] | | | | | | MEDICAL | | | | | | CENTER - | | | | | | LABORATORY | | + + + + + + | Blood, | Negative | Negative | [facility] | | | Urine | | | [facility] | | | | | | MEDICAL | | | | | | CENTER - | | | | | | LABORATORY | | + + + + + + | Glucose, | Negative | Negative | [facility] | | | Urine | | | [facility] | | | | | | MEDICAL | | | | | | CENTER - | | | | | | LABORATORY | | + + + + + + | Ketones, | Negative | Negative | [facility] | | | Urine | | | [facility] | | | | | | MEDICAL | | | | | | CENTER - | | | | | | LABORATORY | | + + + + + + | Bilirubin, | Negative | Negative | [facility] | | | Urine | | | [facility] | | | | | | MEDICAL | | | | | | CENTER - | | | | | | LABORATORY | | + + + + + + | Nitrite, | Negative | Negative | [facility] | | | Urine | | | [facility] | | | | | | MEDICAL | | | | | | CENTER - | | | | | | LABORATORY | | + + + + + + | Leukocyte | Small (A) | Negative | [facility] | | | Esterase, | | | [facility] | | | Urine | | | MEDICAL | | | | | | CENTER - | | | | | | LABORATORY | | + + + + + + | Urobilinoge | Negative | 0.2 mg/dL, 1.0 | [facility] | | | n, Urine | | mg/dL, Negative | [facility] | | | | | | MEDICAL | | | | | | CENTER - | | | | | | LABORATORY | | + + + + + + | White Blood | 2-5 (A) | 0 - 2 /HPF | [facility] | | | Cells, | | | [facility] | | | Urine | | | MEDICAL | | | | | | CENTER - | | | | | | LABORATORY | | + + + + + + | Red Blood | 0-2 | 0 - 2 /HPF | [facility] | | | Cells, | | | [facility] | | | Urine | | | MEDICAL | | | | | | CENTER - | | | | | | LABORATORY | | + + + + + + | Squamous | 2-5 (A) | 0 - 2 /LPF | [facility] | | | Epithelial | | | [facility] | | | Cells, | | | MEDICAL | | | Urine | | | CENTER - | | | | | | LABORATORY | | + + + + + + | Bacteria, | Negative | Negative /HPF | [facility] | | | Urine | | | [facility] | | | | | | MEDICAL | | | | | | CENTER - | | | | | | LABORATORY | | + + + + + + | Mucus, | Present (A) | Negative /LPF | [facility] | | | Urine | | | [facility] | | | | | | MEDICAL | | | | | | CENTER - | | | | | | LABORATORY | | + + + + + + | Triphosphat | Few (A) | None Seen /HPF | [facility] | | | e Crystals, | | | [facility] | | | Urine | | | MEDICAL | | | | | | CENTER - | | | | | | LABORATORY | | + + + + + + | Urine | Urine Culture Not | | [facility] | | | Comment | Indicated | | [facility] | | | | | | MEDICAL | | | | | | CENTER - | | | | | | LABORATORY | | + + + + + + + + | Specimen | + + | Urine - Urine | | specimen (specimen) | + + + + + + + | Performing | Address | City/State/Zipcode | Phone Number | | Organization | | | | + + + + + | [facility] | [address] | [place] | [phone] | | [facility] | | [address] | | | - LABORATORY | | | | + + + + + Extra Blue Top Tube (09/23/2018 4:15 PM PDT) + +-------+ + + + [...] [address] | [place] | [phone] | | [facility] | | [address] | | | - LABORATORY | | | | + + + + + Extra Green Top Tube (09/23/2018 4:15 PM PDT) + +-------+ + + + | Component | Value | Ref Range | Performed | Pathologist | | | | | At | Signature | + +-------+ + + + | Extra Green | Done | | [facility] | | | Top Tube | | | [facility] | | [...] [address] | [place] | [phone] | | [facility] | | [address] | | | - LABORATORY | | | | + + + + + Comprehensive Metabolic Panel (09/23/2018 4:13 PM PDT) + + + + + + | Component | Value | Ref Range | Performed | Pathologist | | | | | At | Signature | + + + + + + | Na | 140 | 136 - 145 | [facility] | | | | | mmol/L | [facility] | | | | | | MEDICAL | | | | | | CENTER - | | | | | | LABORATORY | | + + + + + + | K | 3.4 | 3.4 - 5.1 | [facility] | | | | | mmol/L | [facility] | | | | [...] + | Anion Gap | 6 | 3 - 16 mmol/L | [facility] | | | | | | [facility] | | | | | | MEDICAL | | | | | | CENTER - | | | | | | LABORATORY | | + + + + + + | Glucose | 81 | 60 - 106 mg/dL | [facility] | | | | | | [facility] | | | | | | MEDICAL | | | | | | CENTER - | | | | | | LABORATORY | | + + + + + + | BUN | 22 | 9 - 23 mg/dL | [facility] | | | | | | [facility] | | | | | | MEDICAL | | | | | | CENTER - | | | | | | LABORATORY | | + + + + + + | Creatinine | 0.97 | 0.55 - 1.02 | [facility] | | | | | mg/dL | [facility] | | | | | | MEDICAL | | | | | | CENTER - | | | | | | LABORATORY | | + + + + + + | eGFR, | 57 (L)Comment: | >=60 | [place] | | | non- | GLOMERULAR FILTRATION | mL/min/1.73m2 | [facility] | | | [place] | RATE,ESTIMATED | | MEDICAL | | | | mL/min/1.60v6Sldx than | | CENTER - | | [...] + + + + | Calcium | 9.2 | 8.7 - 10.4 | [facility] | [...] + + + + | Total | 5.9 | 5.7 - 8.2 g/dL | [facility] | | | Protein | | | [facility] | | | | | | MEDICAL | | | | | | CENTER - | | | | | | LABORATORY | | + + + + + + | AST | 24 | 0 - 34 U/L | [facility] | | | | | | [facility] | | | | | | MEDICAL | | | | | | CENTER - | | | | | | LABORATORY | | + + + + + + | ALT | 26 | 10 - 49 U/L | [facility] | | | | | | [facility] | | | | | | MEDICAL | | | | | | CENTER - | | | | | | LABORATORY | | + + + + + + | Alkaline | 66 | 46 - 116 U/L | [facility] | | | Phosphatase | | | [facility] | | | | | | MEDICAL | | | | | | CENTER - | | | | | | LABORATORY | | + + + + + + | Globulin | 1.9 (L) | 2.1 - 3.8 g/dL | [facility] | | | | | | [facility] | | | | | | MEDICAL | | | | | | CENTER - | | | | | | LABORATORY | | + + + + + + | Albumin/Rachel | 2.1 (H) | 0.8 - 1.9 | [facility] | | | bulin Ratio | | | [facility] | | | | | | MEDICAL | | | | | | CENTER - | | | | | | LABORATORY | | + + + + + + | BUN/Creatin | 22.7 | | [facility] | | | ine [...] ST. | [address] | [place], [place] | [phone] | | [facility] | | [address] | | | - LABORATORY | | | | + + + + + CBC w/ Auto Differential (09/23/2018 4:13 PM PDT) + + + + + + | Component | Value | Ref Range | Performed | Pathologist | | | | | At | Signature | + + + + + + | White Blood | 6.3 | 4.0 - 11.0 K/uL | [facility] | | | Cells | | | [facility] | | | | | | MEDICAL | | | | | | CENTER - | | | | | | LABORATORY | | + + + + + + | Red Blood | 4.73 | 3.70 - 5.20 | [facility] | | | Cells | | M/uL | [facility] | | | | | | MEDICAL | | | | | | CENTER - | | | | | | LABORATORY | | + + + + + + | Hemoglobin | 13.9 | 11.5 - 16.0 | [facility] | | | | | g/dL | [facility] | | | | | | MEDICAL | | | | | | CENTER - | | | | | | LABORATORY | | + + + + + + | Hematocrit | 42.7 | 34.0 - 47.0 % | [facility] | | | | | | [facility] | | | | | | MEDICAL | | | | | | CENTER - | | | | | | LABORATORY | | + + + + + + | MCV | 90.3 | 83.0 - 101.0 fL | [facility] | | | | | | [facility] | | | | | | MEDICAL | | | | | | CENTER - | | | | | | LABORATORY | | + + + + + + | MCH | 29.4 | 28.0 - 35.0 pg | [facility] | | | | | | [facility] | | | | | | MEDICAL | | | | | | CENTER - | | | | | | LABORATORY | | + + + + + + | MCHC | 32.6 | 32.0 - 36.0 | [facility] | [...] + + + + | RDW-SD | 43.6 | 35.1 - 46.3 fL | [facility] | | | | | | [facility] | | | | | | MEDICAL | | | | | | CENTER - | | | | | | LABORATORY | | + + + + + + | Platelet | 194 | 140 - 440 K/uL | [facility] | | | Count | | | [facility] | | | | | | MEDICAL | | | | | | CENTER - | | | | | | LABORATORY | | + + + + + + | MPV | 10.5 | 6.5 - 12.4 fL | [facility] | | | | | | [facility] | | | | | | MEDICAL | | | | | | CENTER - | | | | | | LABORATORY | | + + + + + + | Immature | 6.7Comment: Low PLT + | 0.9 - 11.2 % | [facility] | | | Platelet | Low IPF are consistent | | [facility] | | | Fraction | with a production | | MEDICAL | | | | disorder. Low PLT + High | | CENTER - | | | | IPF are consistent with | | LABORATORY | | | | destruction mechanism. | | | | + + + + + + | % | 40.3 (L) | 45.0 - 82.0 % | [facility] | | | Neutrophils | | | [facility] | | | | | | MEDICAL | | | | | | CENTER - | | | | | | LABORATORY | | + + + + + + | % | 44.4 | 20.0 - 45.0 % | [facility] | | | Lymphocytes | | | [facility] | | | | | | MEDICAL | | | | | | CENTER - | | | | | | LABORATORY | | + + + + + + | % Monocytes | 12.3 (H) | 4.0 - 12.0 % | [facility] | | | | | | [facility] | | | | | | MEDICAL | | | | | | CENTER - | | | | | | LABORATORY | | + + + + + + | % | 1.9 | 0.0 - 5.0 % | [facility] | | | Eosinophils | | | [facility] | | | | | | MEDICAL | | | | | | CENTER - | | | | | | LABORATORY | | + + + + + + | % Basophils | 0.8 | 0.0 - 1.0 % | [facility] [...] | | Granulocyte | | | [facility] | | | s | | | MEDICAL | | | | | | CENTER - | | | | | | LABORATORY | | + + + + + + | Absolute | 2.52 | 1.80 - 8.50 | [facility] | | | Neutrophils | | K/uL | [facility] | | | | | | MEDICAL | | | | | | CENTER - | | | | | | LABORATORY | | + + + + + + | Absolute | 2.78 | 0.60 - 3.20 | [facility] | | | Lymphocytes | | K/uL | [facility] | | | | | | MEDICAL | | | | | | CENTER - | | | | | | LABORATORY | | + + + + + + | Absolute | 0.77 | 0.00 - 1.00 | [facility] | | | Monocytes | | K/uL | [facility] | | | | | | MEDICAL | | | | | | CENTER - | | | | | | LABORATORY | | + + + + + + | Absolute | 0.12 | 0.00 - 0.40 | [facility] | | | Eosinophils | | K/uL | [facility] | | | | | | MEDICAL | | | | | | CENTER - | | | | | | LABORATORY | | + + + + + + | Absolute | 0.05 | 0.00 - 0.10 | [facility] | | | Basophils | | K/uL | [facility] | | | | | | MEDICAL | | | | | | CENTER - | | | | | | LABORATORY | | + + + + + + | Absolute | 0.02 [...] | | | | | WBCs | [facility] | | | | | | MEDICAL | | | | | | CENTER - | | | | | | LABORATORY | | + + + + + + | Absolute | 0.00 | 0.00 - 0.01 | [facility] | | | nRBC | | K/uL | [facility] | | | | [...] + | [facility] | [address] | [place] | [phone] | | [facility] | | [id number] | | | - LABORATORY | | | | + + + + + ECG 12 lead (09/23/2018 2:56 PM PDT) + + + + + + | Component | Value | Ref Range | Performed | Pathologist | | | | | At | Signature | + + + + + + | VENTRICULAR | 74 | BPM | [facility] | | | RATE EKG | | | | | + + + + + + | ATRIAL RATE | 74 | BPM | [facility] | | + + + + + + | P-R | 172 | ms | [facility] | | | INTERVAL | | | | | + + + + + + | QRS | 88 | ms | [facility] | | | DURATION | | | | | + + + + + + | Q-T | 382 | ms | [facility] | | | INTERVAL | | | | | + + + + + + | Q-T | 424 | ms | [facility] | | | INTERVAL | | | | | | (CORRECTED) | | | | | + + + + + + | P WAVE AXIS | 61 | degrees | [facility] | | + + + + + + | QRS AXIS | -6 | degrees | [facility] | | + + + + + + | T AXIS | 71 | degrees | [facility] | | + + + + + + | INTERPRETAT | Normal sinus rhythmRSR' | | [facility] | | | ION TEXT | or QR pattern in V1 | | | | | | suggests right | | | | | | ventricular conduction | | | | | | delayNo previous ECGs | | | | | | availableConfirmed by | | | | | | JULISA BOOGIE MD ([id number]) | | | | | | on 09/24/2018 7:56:23 AM | | | | + + + + + + + + | Specimen | + + | | + + + + + | Narrative | Performed At | + + + | | | + + + + +---------+ + + | Performing | Address | City/State/Zipcode | Phone Number | | Organization | | | | + +---------+ + + | [facility] | | | | + +---------+ + + documented in this encounter Visit Diagnoses + + | Diagnosis | + + | Peripheral positional vertigo, unspecified laterality - Primary | + + | Hx of adrenal insufficiency Personal history of other endocrine, metabolic, and | | immunity disorders | + + | Panhypopituitarism (HCC) Panhypopituitarism | + + documented in this encounter
--- OUTSIDE RECORDS SUMMARY | ~2020-01-04 | XMS | Encounter Summary ---
Demographics + + + | Address | [address] | | | [place] [address] | + + + | Home Phone [...] Author | [facility] | | | and [...] [address] | | | [address], | | | | | [place] [address] | | + + + + + | Ryan Vogt | ECON | Unknown | | + + + + + | Rob Vogt | ECON | Unknown | | + + + + + Care Team Providers + +------+ + | Care Cafeteria Counter Attendant Name | Role | Phone | + +------+ + | Abarhan Samaniego MD | PCP | | + +------+ + Reason for Referral Diagnostic/Screening (Routine) +--------+--------+ + + + + | Status | Reason | Specialty | Diagnoses / | Referred By | Referred To | | | | | Procedures | Contact | Contact | +--------+--------+ + + + + | Closed | | Radiology | Diagnoses | [place], | [facility] | | | | | Diplopia | MD Cheryl | [facility] | | | | | Procedures | [address] | [facility] | | | | | MRI | [address] | MEDICAL | | | | | Pituitary w | [address] | CENTER [address] | | | | | wo Contrast | [place] | [place] | | | | | | [address] | [place] | | | | | | Phone: | [place] [phone] | | | | | | [phone] | Phone: | | | | | | Fax: | [phone] | | | | | | [phone] | Fax: | | | | | | | [phone] | +--------+--------+ + + + + Reason for Visit Diagnostic/Screening (Routine) +--------+--------+ + + + + | Status | Reason | Specialty | Diagnoses / | Referred By | Referred To | | | | | Procedures | Contact | Contact | +--------+--------+ + + + + | Closed | | Radiology | Diagnoses | [place], | [facility] | | | | | Diplopia | MD Cheryl | [facility] | | | | | Procedures | [address] | [facility] | | | | | MRI | [address] | MEDICAL | | | | | Pituitary w | [address] | CENTER [address] | | | | | wo Contrast | [place] | [place] | | | | | | [address] | [place] | | | | | | Phone: | [place] [phone] | | | | | | [phone] | Phone: | | | | | | Fax: | [phone] | | | | | | [phone] | Fax: | | | | | | | [phone] | +--------+--------+ + + + + Encounter Details +--------+ + + + + | Date | Type | Department | Care Team | Description | +--------+ + + + + | 03/08/ | Hospital | [facility] | Cheryl Zee MD | Diplopia | | 2019 | Encounter | MED CTR MRI [address] [place] | | | | | [place], | [address] [place] [address] | | | | | [place] [address] | [address] | | | | | [phone] | | | +--------+ + + + [...] under | 5 each | 2 | 02/11/20 | | | (OMNITROPE) 5.8 MG | the skin Daily. | | | 19 | 9 | | SOLR | | | | | | + + + +---------+ + + documented as of this encounter Miscellaneous Notes Result QuickNote - Cheryl Zee MD - 03/08/2019 4:18 PM PDTPlease note your MRI pituita ry show no tumor; no other concerns, small nodule on dura (brain cover) seen before and unch anged- unchanged MRI from 2013 Best regards, MCzoëa do cumented in this encounter Plan of [...] | | | | | | [place] [address] | | | | | | [phone] | | | | | | | [...] + +--------+ + + + | MRI PITUITARY W WO | Routin | 03/08/2019 | Diplopia | Results for this | | CONTRAST | e | 1:25 PM | | procedure are in the | | | | PDT | | results section. | + +--------+ + + + documented in this encounter Results MRI Pituitary w wo Contrast (03/08/2019 1:25 PM PDT) + + | Specimen | + + | | + + + + + | Narrative | Performed At | + + + | MRI PITUITARY W WO CONTRAST 03/08/2019 1:09 PM | [facility] | | HISTORY:?diplopia. Patient with history of pituitary apoplexy. | | | COMPARISON: 10/11/2013 PROTOCOL: MRI of the brain was obtained with | | | the following sequences: Axial T2, axial FLAIR fat sat, axial | | | diffusion weighted, axial SWI, axial T1 post gadolinium. MRI of the | | | pituitary gland was obtained with the following sequences: Coronal | | | T2, coronal T1, sagittal T1, coronal T1 dynamic post gadolinium, | | | coronal T1 post gadolinium, sagittal T1 post gadolinium. The patient | | | was administered 6 cc Gadavist. FINDINGS: No suspicious | | | nodules/mass or other suspicious soft tissue thickening or | | | enhancement involving the pituitary or sella turcica. Normal T1 | | | posterior pituitary bright spot. Flattening and only a small | | | diminutive size of the residual pituitary gland in this patient with | | | panhypopituitarism. The brain parenchyma shows no evidence for | | | acute infarct, mass lesion, or hemorrhage. The brainstem is | | | unremarkable. The cerebellum is normal. Subtle enhancement along the | | | right aspect of the midline falx cerebri appears dural based and may | | | represent a subtle meningioma which is stable since 2012. Mild | | | prominence of the cerebral sulci. Ventricles are normal in size and | | | shape. Normal vascular flow voids are seen. The orbits are | | | normal. Optic chiasm and visualized portions of the optic nerves are | | | normal. Paranasal sinuses are clear. Mastoid air cells are normal. | | | Chronic postsurgical changes are seen related to the right anterior | | | frontal skull related to prior craniotomy. No abnormalities involving | | | the skull or scalp soft tissues. IMPRESSION - No suspicious | | | nodules/mass or other suspicious soft tissue thickening or | | | enhancement involving the pituitary or sella turcica. Normal T1 | | | posterior pituitary bright spot. Flattening and only a small | | | diminutive size of the residual pituitary gland in this patient with | | | panhypopituitarism. Stable 5 mm right dural based mass in the falx | | | cerebri suspicious for a small meningioma. Mild stable atrophy. | | | Dictated and Signed by: Raghu Truong MD Electronically | | | signed: 03/08/2019 3:08 PM | | + + + + + | Procedure Note | + + | Vishnu, Rad Results In - 03/08/2019 3:11 PM PDT MRI PITUITARY W WO CONTRAST 03/08/2019 | | 1:09 PM HISTORY:?diplopia. Patient with history of pituitary apoplexy.COMPARISON: | | 10/11/2013PROTOCOL:MRI of the brain was obtained with the following sequences: Axial T2, | | axialFLAIR fat sat, axial diffusion weighted, axial SWI, axial T1 post gadolinium.MRI of | | the pituitary gland was obtained with the following sequences: CoronalT2, coronal T1, | | sagittal T1, coronal T1 dynamic post gadolinium, coronal T1 postgadolinium, sagittal T1 | | post gadolinium. The patient was administered 6 ccGadavist.FINDINGS:No suspicious | | nodules/mass or other suspicious soft tissue thickening orenhancement involving the | | pituitary or sella turcica. Normal T1 posteriorpituitary bright spot. Flattening and | | only a small diminutive size of theresidual pituitary gland in this patient with | | panhypopituitarism.The brain parenchyma shows no evidence for acute infarct, mass | | lesion, orhemorrhage. The brainstem is unremarkable. The cerebellum is normal. 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 Ventricles are normal in size and shape.Normal vascular flow voids are | | seen.The orbits are normal. Optic chiasm and visualized portions of the optic nervesare | | normal. Paranasal sinuses are clear. Mastoid air cells are normal.Chronic postsurgical | | changes are seen related to the right anterior frontalskull related to prior craniotomy. | | No abnormalities involving the skull or scalpsoft tissues.IMPRESSION -No suspicious | | nodules/mass or other suspicious soft tissue thickening orenhancement involving the | | pituitary or sella turcica. Normal T1 posteriorpituitary bright spot. Flattening and | | only a small diminutive size of the residual pituitary gland inthis patient with | | panhypopituitarism.Stable 5 mm right dural based mass in the falx cerebri suspicious for | | a smallmeningioma.Mild stable atrophy.Dictated and Signed by: Raghu Truong MD | | Electronically signed: 03/08/2019 3:08 PM | |Mild prominence of the cerebral sulci. Ventricles are normal in size and shape. | | | |Normal vascular flow voids are seen. | | | |The orbits are normal. Optic chiasm and visualized portions of the optic nerves | |are normal. Paranasal sinuses are clear. Mastoid air cells are normal. | | | |Chronic postsurgical changes are seen related to the right anterior frontal | |skull related to prior craniotomy. No abnormalities involving the skull or scalp | |soft tissues. | | | |IMPRESSION - | |No suspicious nodules/mass or other suspicious soft tissue thickening or | |enhancement involving the pituitary or sella turcica. Normal T1 posterior | |pituitary bright spot. | | | |Flattening and only a small diminutive size of the residual pituitary gland in | |this patient with panhypopituitarism. | | | |Stable 5 mm right dural based mass in the falx cerebri suspicious for a small | |meningioma. | | | |Mild stable atrophy. | | | |Dictated and Signed by: Raghu Truong MD | | Electronically signed: 03/08/2019 3:08 PM | + + + +---------+ + + | Performing | Address | City/State/Zipcode | Phone Number | | Organization | | | | + +---------+ + + | [facility] | | | | + +---------+ + + documented in this encounter Visit Diagnoses + + | Diagnosis | + + | Diplopia | + + documented in this encounter Administered Medications + +--------+ +-------+------+------+ | Medication Order | MAR | Action | Dose | Rate | Site | | | Action | Date | | | | + +--------+ +-------+------+------+ | gadobutrol (GADAVIST) injection | Given | 03/08/20 | 6 mLs | | | | 6 mL 6 mL, Intravenous, ONCE | | 19 1:24 | | | | | PRN, Other, Starting 03/08/19 | | PM PDT | | | | | at 1324, For 1 dose, MRI | | | | | | + +--------+ +-------+------+------+ +---+---+ | | | +---+---+ documented in this encounter"
--- OUTSIDE RECORDS SUMMARY | ~2020-01-04 | XMS | Encounter Summary ---
Demographics + + + | Address | [address] | | | [place] [address] | + + + | Home Phone | | + + + | Preferred Language | Unknown | + + + | Marital Status | | + + + | Mosque Affiliation | 1027 | + + + | Race | Unknown | + + + | Ethnic Group | Unknown | + + + Author + + + | Author | [facility] | | | and [place] [...] [place], | | | | | [place] [address] | | + + + + + | Ryan Vogt | ECON | Unknown | | + + + + + | Rob Vogt | ECON | Unknown | | + + + + + Care Team Providers + +------+ + | Care Sheep Sticker Name | Role | Phone | + +------+ + | Abrahan Samaniego MD | PCP | | + +------+ + Reason for Visit + + + | Reason | Comments | + + + | 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 patient | + + + Evaluate & Treat (Urgent) +--------+ + + + + + | Status | Reason | Specialty | Diagnoses / | Referred By | Referred To | | | | | Procedures | Contact | Contact | +--------+ + + + + + | Closed | Specialty | Endocrinology | Diagnoses | Aden, | Yayo, | | | Services | | | Abrahan Cortez MD | MD Cheryl | | | Required | | Hyperparathy | [address] | [address] | | | | | roidism | STREET | [facility] | | | | | ([facility]) | [place], | [place] | | | | | Osteoporosis | [place] [address] | [address] Phone: | | | | | , | Phone: | [phone] | | | | | unspecified | [phone] | Fax: | | | | | osteoporosis | Fax: | [phone] | | | | | type, | [phone] | | | | | | unspecified | | | | | | | pathological | | | | | | | fracture | | | | | | | presence | | | | | | | Panhypopitui | | | | | | | tarism ([facility]) | | | +--------+ + + + + + Encounter Details +--------+---------+ + + + | Date | Type | Department | Care Team | Description | +--------+---------+ + + + | 09/07/ | Office | ORIENT MEDICAL | Cheryl Zee MD | Secondary | | 2018 | Visit | [facility] [place] | [address] [place] | hyperparathyroidism | | | | ENDOCRINOLOGY [address] | [address] [place] | ([facility]) (Primary Dx); | | | [address] [place] [address] | [address] | Other osteoporosis | | | | [place] | | without current | | | | [address] | | pathological | | | | [phone] | | fracture; | | | | | | Hypopituitarism | | | | | | ([facility]); Secondary | | | | | | adrenal | | | | | | insufficiency (HCC); | | | | | | Secondary | | | | | | hypothyroidism; | | | | | | Hypokalemia due to | | | | | | loss of potassium | +--------+---------+ + + + Social History [...] + | Oxygen Saturation | 98% | 09/07/2017 1:38 PM | | | | | PDT | | + + + + + | Inhaled Oxygen | - | - | | | Concentration | | | | + + + + + | Weight | 68.3 kg (150 lb 9.6 | 09/07/2017 1:38 PM | | | | oz) | PDT | | + + + + + | Height | 160 cm (5' 3") | 09/07/2017 1:38 PM | | | | | PDT | | + + + + + | Body Mass Index | 26.68 | 09/07/2017 1:38 PM | | | | | PDT | | + + + + + documented in this encounter Patient Instructions Patient Instructions Cheryl Zee MD - 09/07/2017 1:30 PM PDTPlease take 1,200 mg calci um total from diet and pills (one serving dairy is approx 300 mg calcium) Continue 2,000IU vit D 3 Exercise: weight beating and strengthening Please continue same thyroid replacement, same prednisone dose, remember use stress dose st eroids, consider 6 mg prednisone if fatigue persists Lets get blood tests in 3 months, repeat parathyroid hormone documented in this encounter Progress Notes Cheryl Zee MD - 09/07/2017 1:30 PM PDT Endocrinology Consultation Patient Name: Oliva Vogt : 1950 Age: 67 y.o. Sex: female Referring Provider: Abrahan Samaniego MD PCP: Abrahan Samaniego MD Date of Service: 09/07/2017 Chief Complaint Patient presents with Panhypopituitarism New patient History of presenting illness Oliva Vogt is a 67 y.o. 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 She reports: Recently PTH has been found elevated and she has worsening bone loss. She has history of Guero syndrome, diagnosed in April 1973. She has been long-term on multiple hormone replacements including prednisone, levothyroxine, estrogen replacement unt il her late 40s as well. 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 The patient was diagnosed with osteopenia due to BMD . Patient had last DXA on 08/2017, which showed lowest score at femoral neck : T-score -2.4 Z-score -0.8; current bone density does not provide any comparison with previous measurement s. The patient has no history of fragility fracture. The patient has no loss of height over time . The patient exercises -walking, less recently because of illness, other family issu es (son sick with recent paralysis due to spine abscess) . The patient ambulates With no problems . The patient has no Available Xrays, she denies back pain Patient takes one calcium pill with magnesium and 2,000 IU vitamin D Daily- started last w [place]. Dairy intake is one serving daily . Medications affecting bone healthy such as steroids, anticonvulsants prednisone 5 mg daily . Family history of osteoporosis is none . Patient has no history of nephrolithiasis. Patient has no history of gastrointestinal surgery, diarrhea, malabsorption. Patient has no weight changes. Patient does no smoke and does no drink alcohol, no excessive coffee. The patient has Hypogonadism- has hypopituitarism, was on full pituitary replacement until WHO results. The patient has no hyperthyroidism, no rheumatoid arthritis; she takes levothyroxine 100 mc g daily. She had episode of adrenal insufficiency 1.5 year ago requiring hospital visit, presented w ith fever, low BP. Has Medic Alert ID, she knows the rules of stress dose steroids. The patient has no past treatment of osteoporosis . I have reviewed patient's medical records pertinent to my consultation including labs, imag ing studies, medication history, provider notes . Noted free T4 and electrolytes are normal, PTH mildly elevated, vitamin D suboptimal; she a dmits that she has not been taking calcium and vitamin D for a while, restarted vitamin D on ly recently. Review of Systems Constitutional: Positive for malaise/fatigue. HENT: Positive for tinnitus. Eyes: Negative. Respiratory: Positive for cough. Cardiovascular: Negative. Gastrointestinal: Negative. Genitourinary: Negative. Musculoskeletal: Negative. Skin: Negative. Neurological: Negative. Endo/Heme/Allergies: Bruises/bleeds easily. Psychiatric/Behavioral: Negative. Past Medical History: Diagnosis Date Adrenal insufficiency [...] Laterality: N/A; Surgeon: Shaji Thornton MD; Location: [facility] MEDICAL PROCEDU RE UNIT CYST REMOVAL Left 1970 ENDOMETRIAL BIOPSY 2006 Benign Skull Biopsy 09/28/2011 (Benign) TUBAL LIGATION Bilateral Social and Personal History Social History Substance Use Topics Smoking status: Never Smoker Smokeless tobacco: Never Used Alcohol use No Family History Problem Relation Age of Onset High blood pressure Mother 84 of Aortic dissection Other (see comment) Father 74 of hemorrgagic CVA Stroke Father Arthritis Father Lung cancer Maternal Grandfather Lung cancer Brother Lung cancer Sister Medications Current Outpatient Prescriptions Medication Sig Dispense Refill atorvaSTATin (LIPITOR) 10 mg tablet take 1 tablet by mouth AT NIGHT (Patient taking dif ferently: take 1 tablet by mouth at night) 90 tablet 2 Rkzojsf-Daiccycfr-Efjogwc D (CALCIUM MAGNESIUM PO) Take by mouth. cholecalciferol (VITAMIN D-3) 1,000 units tablet Take 2 tablets by mouth Daily. (Patien t taking differently: Take 2,000 Units by mouth Daily. Patient taking 2,000u once daily) levothyroxine (SYNTHROID, LEVOTHROID) 100 mcg tablet Take 1 tablet by mouth every morni ng (before breakfast). 90 tablet 3 potassium chloride (KLOR-CON) 10 mEq CR tablet Take 1 tablet by mouth Daily. 90 tablet 3 predniSONE (DELTASONE) 5 mg tablet take 1 tablet by mouth once daily 90 tablet 3 No current facility-administered medications for this visit. Allergies Allergies Allergen Reactions Succinylcholine Chloride Other (See Comments) Hard to wake up Physical Examination BP supine: 140/78 (Right Arm) HR supine: 78 BP sittin/78 HR sittin BP standin/76 HR standin Vs: Ht 1.6 m (5' 3") | Wt 68.3 kg (150 lb 9.6 oz) | SpO2 98% | BMI 26.68 kg/m General: Well-developed and well-nourished, in no acute distress. SKIN: Normal texture and temperature. No rashes HEENT: PERRLA, EOMI No proptosis. Neck: Supple. Thyroid normal size No discrete nodules. Lymphatic: No cervical, supraclavicular or submandibular lymphadenopathy. Respiratory: Normal respiratory effort. Normal breath sound bilaterally. No wheezing, rhon chi or crackles. Cardiovascular: S1S2 RRR, no M/R/G; no edema, cyanosis or clubbing in extremities. Abdomen: Abdomen is soft, nondistended and non-tender. No hepatosplenomegaly or mass, nor mal bowel sounds. Musculoskeletal: no proximal muscle weakness, posture normal , gait normal. Neurological: Cranial nerves III-XII grossly intact. DTR 2+. Psychiatric: Patient is alert, awake and oriented times 3. Normal judgment and insight. Lab Review Recent Labs 08/26/17 1116 06/23/17 1153 NA 144 142 K 3.9 3.3* CO2 29 28 BUN 20* 17 CREA 1.01 1.03 GLU 89 94 BILITOT -- 0.7 AST -- 18 ALT -- 21 ALKPHOS -- 75 Hematology: Recent Labs 06/23/17 1153 HGB 15.0 HCT 44.3 WBC 6.7 PLT 258 NEUPCT 46.6 I have reviewed patient's DXA Scan imaging Impression Patient osteopenia and mild elevation of parathyroid hormone in setting of normal calcium level and low normal vitamin D. Most likely the patient has secondary hyperparathyroidism, I advised appropriate replacemen t of calcium and vitamin D and reassessment with parathyroid level and minerals and 24 hour urine for calcium. FRAX calculator gives 10 year probability of fracture 13% for major osteoporotic fracture a nd 2.6% for hip fracture; her steroid replacement is physiologic, she does have risk for bon e loss because of growth hormone deficiency and replacement with growth hormone could be con sidered. She does not have any obvious contraindication no history of cancers and she repor ts that she is up-to-date with age appropriate cancer screening. We discussed appropriate calcium and vitamin D intake and exercise as below, reassessment i n 3 months of PTH and calcium metabolism and we'll check IGF-I. She is borderline orthostatic today, she feels that she may have been dehydrated. We may c onsider increasing prednisone to 6 mg daily, she may give a trial of that. She should scottie nue the same thyroid replacement, it appears appropriate based on previous testing. She is reminded to use stress dose steroids with illness, she will continue to wear a medic al alert ID. Assessment & Plan 1. Hypopituitarism (HCC) 2. Adrenal insufficiency (HCC) 3. Secondary hypothyroidism 4. Hypokalemia due to loss of potassium 5. Other osteoporosis without current pathological fracture No notes on file I sincerely appreciate the referral from Abrahan Lee MD, allowing me to participate in the patient's care. Please contact me with with any questions or concerns. Electronically Signed by: Cheryl Zee MD Endocrinology 09/07/2017 13:52 documented in this enc ounter Plan of Treatment +--------+---------+ + + + | Date | Type | Specialty | Care Team | Description | +--------+---------+ + + + | 04/29/ | Office | Internal Medicine | Abrahan Samaniego MD | | | 2019 | Visit | | [address] [facility] | | | | | | [place] | | | | | | [address] | | | | | | | | +--------+---------+ + + + | 07/25/ | Office | Cardiology | Renetta, | | | 2020 | Visit | | [facility] [address] | | | | | | [place], | | | | | | [place] [address] | | | | | | [phone] | | | | | | | | +--------+---------+ + + + | 09/03/ | Office | Endocrinology | Cheryl Zee MD | | | 2020 | Visit | | [address] [place] | | | | | | [address] [place] | | | | | | [id number] | | | | | | | | +--------+---------+ + + + documented as of this encounter Results Calcium, Urine, 24Hr (08/22/2018 10:53 AM PDT) + + + + + + | Component | Value | Ref Range | Performed | Pathologist | | | | | At | Signature | + + + + + + | CALCIUM UR | 23.9 | Not Estab. | REFERENCE | | | | | mg/dL | LAB [facility] | | | | | | - [place] | | + + + + + + | Calcium, | 316.7 (H) | 100.0 - 300.0 | REFERENCE | | | 24H Urine | | mg/24 hr | LAB [facility] | | | | | | - [place] | | + + + + + + + + | Specimen | + + | Urine | + + + + + | Narrative | Performed At | + + + | Performed at: 01 - [facility] [place] [address], | REFERENCE LAB | | [place], [place] [id number] Conduit Helper: Abelardo Gayle MD, Phone: | [place] | | [phone] | | + + + + + + + + | Performing | Address | City/State/Zipcode | Phone Number | | Organization | | | | + + + + + | REFERENCE LAB | [address] | [place], [place] | [phone] | | [facility] | [place] | [address] | | + + + + + Creatinine, Urine, 24Hr (08/22/2018 10:53 AM PDT) + +-------+ + + + | Component | Value | Ref Range | Performed | Pathologist | | | | | At | Signature | + +-------+ + + + | Urine Time | 24 HR | | [facility] | | | | | | [facility] | | | | | | [facility]ICAL | | | | | | CENTER - | | | | | | LABORATORY | | + +-------+ + + + | Urine | 1,325 | mL | [facility] | | | Volume | | | [facility] | | | | | | MEDICAL | | | | | | CENTER - | | | | | | LABORATORY | | + +-------+ + + + | Creatinine, | 74 | mg/dL | [facility] | | | Urine | | | [facility] | | | | | | MEDICAL | | | | | | CENTER - | | | | | | LABORATORY | | + +-------+ + + + | Creatinine, | 981 | mg/24hr | [facility] | | | Urine | | | [facility] | | | (mg/24hr) | | | MEDICAL | | | | | | CENTER - | | | | | | LABORATORY | | + +-------+ + + + + + | Specimen | + + | Urine | + + + + + + + | Performing | Address | City/State/Zipcode | Phone Number | | Organization | | | | + + + + + | [facility] | [address] | [place] | [phone] | | [facility] | | [address] | | | - LABORATORY | | | | + + + + + Insulin-Like Growth Factor 1 (01/06/2018 9:00 AM PDT) + +--------+ + + + | Component | Value | Ref Range | Performed | Pathologist | | | | | At | Signature | + +--------+ + + + | Insulin-lik | 36 (L) | 38 - 163 ng/mL | [...] + | Performed at: 01 - [facility] [address] [facility], | REFERENCE LAB | | [place], [place] [id number] Conduit Helper: Josiah Mann MD, Phone: | [place] | | [phone] | | + + + + + + + + | Performing | Address | City/State/Zipcode | Phone Number | | Organization | | | | + + + + + | REFERENCE LAB | [address] | [place], [place] | [phone] | | [facility] | [place] [facility] | [address] | | + + + + + Protein Electrophoresis, Serum (01/06/2018 9:00 AM PDT) + +-------+ + + + | Component | Value | Ref Range | Performed | Pathologist | | | | | At | Signature | + +-------+ + + + | Total | 6.0 | 6.0 - 7.8 g/dL | [facility] | | | Protein | | | [facility] | | | | | | MEDICAL | | | | | | CENTER - | | | | | | LABORATORY | | + +-------+ + + + | ELP Albumin | 4.0 | 3.6 - 5.7 g/dL | [facility] | | | | | | [facility] | | | | | | MEDICAL | | | | | | CENTER - | | | | | | LABORATORY | | + +-------+ + + + | ELP Alpha 1 | 0.1 | 0.1 - 0.2 g/dL | [facility] | | | Globulin | | | [facility] | | | | | | MEDICAL | | | | | | CENTER - | | | | | | LABORATORY | | + +-------+ + + + | ELP Alpha 2 | 0.6 | 0.4 - 0.9 g/dL | [facility] | | | Globulin | | | [facility] | | | | | | MEDICAL | | | | | | CENTER - | | | | | | LABORATORY | | + +-------+ + + + | ELP Beta 1 | 0.4 | 0.3 - 0.7 g/dL | [facility] | | | Globulin | | | [facility] | | | | | | MEDICAL | | | | | | CENTER - | | | | | | LABORATORY | | + +-------+ + + + | ELP Beta 2 | 0.2 | 0.1 - 0.4 g/dL | [facility] | | | Globulin | | | [facility] | | | | | | MEDICAL | | | | | | CENTER - | | | | | | LABORATORY | | + +-------+ + + + | ELP Gamma | 0.7 | 0.4 - 1.2 g/dL | [facility] | | | Globulin | | | [facility] | | | | | | MEDICAL | | | | | | CENTER - | | | | | | LABORATORY | | + +-------+ + + + | ELP Albumin | 66.2 | % | [facility] | | | % | | | [facility] | | | | | | MEDICAL | | | | | | CENTER - | | | | | | LABORATORY | | + +-------+ + + + | Albumin/Rachel | 2.0 | | [facility] | | | bulin Ratio | | | [facility] | | | | | | MEDICAL | | | | | | CENTER - | | | | | | LABORATORY | | + +-------+ + + + | ELP Alpha 1 | 2.1 | % | [facility] | | | Globulin % | | | [facility] | | | | | | MEDICAL | | | | | | CENTER - | | | | | | LABORATORY | | + +-------+ + + + | ELP Alpha 2 | 10.2 | % | [facility] | | | Globulin % | | | [facility] | | | | | | MEDICAL | | | | | | CENTER - | | | | | | LABORATORY | | + +-------+ + + + | ELP Beta 1 | 6.2 | % | [facility] | | | Globulin % | | | [facility] | | | | | | MEDICAL | | | | | | CENTER - | | | | | | LABORATORY | | + +-------+ + + + | ELP Beta 2 | 4.0 | % | [facility] | | | Globulin % | | | [facility] | | | | | | MEDICAL | | | | | | CENTER - | | | | | | LABORATORY | | + +-------+ + + + | ELP Gamma | 11.3 | % | [facility] | | | Globulin % | | | [facility] | | | | | | MEDICAL | | | | | | CENTER - | | | | | | LABORATORY | | + +-------+ + + + + + | Specimen | + + | Blood | + + + + + | Narrative | Performed At | + + + | Negative for a | [facility] | | monoclonal proteinRandee Ricardo MD, 01/07/18. | [facility] | | | [facility] | | | - LABORATORY | + + + + + + + + | Performing | Address | City/State/Zipcode | Phone Number | | Organization | | | | + + + + + | [facility] | [address] | [place] | [phone] | | [facility] | | [address] | | | - LABORATORY | | | | + + + + + Parathyroid Hormone, Intact (01/06/2018 9:00 AM PDT) + +-------+ + + + | Component | Value | Ref Range | Performed | Pathologist | | | | | At | Signature | + +-------+ + + + | PTH Intact | 81 | 12 - 88 pg/mL | [facility] | | [...] + | [facility] | [address] | [place] | [phone] | | [facility] | | [address] | | | - LABORATORY | | | | + + + + + Phosphorus (01/06/2018 9:00 AM PDT) + +---------+ + + + | Component | Value | Ref Range | Performed | Pathologist | | | | | At | Signature | + +---------+ + + + | Phosphorus | 2.4 (L) | 2.5 - 4.6 mg/dL | [facility] | | | | [...] [address] | [place] | [phone] | | [facility] | | [address] | | | - LABORATORY | | | | + + + + + Comprehensive Metabolic Panel (01/06/2018 9:00 AM PDT) + + + + + + | Component | Value | Ref Range | Performed | Pathologist | | | | | At | Signature | + + + + + + | Na | 140 | 136 - 149 | [facility] | | | | | mmol/L | [facility] | | | | | | MEDICAL | | | | | | CENTER - | | | | | | LABORATORY | | + + + + + + | K | 3.7 | 3.5 - 5.1 | [facility] | | | | | mmol/L | [facility] | | | | | | MEDICAL | | | | | | CENTER - | | | | | | LABORATORY | | + + + + + + | Cl | 109 | 98 - 109 mmol/L | [facility] [...] + + + + | Glucose | 87 | 70 - 109 mg/dL | [facility] | | | | | | [facility] | | | | | | MEDICAL | | | | | | CENTER - | | | | | | LABORATORY | | + + + + + + | BUN | 13 | 7 - 18 mg/dL | [facility] | | | | | | [facility] | | | | | | MEDICAL | | | | | | CENTER - | | | | | | LABORATORY | | + + + + + + | Creatinine | 1.03 | 0.60 - 1.30 | [facility] | | | | | mg/dL | [facility] | | | | | | MEDICAL | | | | | | CENTER - | | | | | | LABORATORY | | + + + + + + | eGFR, | 53 (L)Comment: | >=60 | [facility] | | | non- | GLOMERULAR FILTRATION | mL/min/1.73m2 | [facility] | | | [place] | RATE,ESTIMATED | | MEDICAL | | | | mL/min/1.37k3Okzc than | | CENTER - | | [...] + + + + | Calcium | 8.8 | 8.3 - 10.5 | [facility] | | | | | mg/dL | [facility] | | | | | | MEDICAL | | | | | | CENTER - | | | | | | LABORATORY | | + + + + + + | Albumin | 3.9 | 3.2 - 5.0 g/dL | [facility] | | | | | | [facility] | | | | | | MEDICAL | | | | | | CENTER - | | | | | | LABORATORY | | + + + + + + | Bilirubin | 0.8 | 0.1 - 1.5 mg/dL | [facility] | | | Total | | | [facility] | | | | | | MEDICAL | | | | | | CENTER - | | | | | | LABORATORY | | + + + + + + | Total | 6.5 | 6.0 - 7.8 g/dL | [facility] | | | Protein | | | [facility] | | | | | | MEDICAL | | | | | | CENTER - | | | | | | LABORATORY | | + + + + + + | AST | 19 | 10 - 42 U/L | [facility] | | | | | | [facility] | | | | | | MEDICAL | | | | | | CENTER - | | | | | | LABORATORY | | + + + + + + | ALT | 19 | 6 - 45 U/L | [facility] | | | | | | [facility] | | | | | | MEDICAL | | | | | | CENTER - | | | | | | LABORATORY | | + + + + + + | Alkaline | 67 | 40 - 110 U/L | [facility] [...] + + + + | Albumin/Rachel | 1.5 | 0.8 - 2.0 | [facility] | | | bulin Ratio | | | [facility] | | | | | | MEDICAL | | | | | | CENTER - | | | | | | LABORATORY | | + + + + + + | BUN/Creatin | 12.6 | | [facility] | | | ine [...] + | [facility] | [address] | [place] | [phone] | | [facility] | | [address] | | | - LABORATORY | | | | + + + + + Vitamin D, 25-Hydroxy, Fractionated (D2,D3) (01/06/2018 9:00 AM PDT) + + + + + + | Component | Value | Ref Range | Performed | Pathologist | | | | | At | Signature | + + + + + + | 25-Hydroxy | <1.0 | ng/mL | [facility] | | | D2 | | | LAB [facility] | | | | | | - [facility] | | + + + + + + | 25-Hydroxy | 46Comment: Reference | ng/mL | REFERENCE | | | D, Total | Range:All Ages: Target | | LAB [facility] | | | | levels 30 - 100 | | - [facility] | | | |All Ages: Target levels 30 - 100 | | | | + + + + + + | 25-HYDROXY | 45 | ng/mL | REFERENCE | | | D3 | | | LAB [facility] | | | | | | - [facility] | | + + + + + + + + | Specimen | + + | Blood | + + + + + | Narrative | Performed At | + + + | Performed at: 01 - [facility] [address] [facility] | REFERENCE LAB | | [place], [place] [id number] Conduit Helper: Leonid Garcia MD, Phone: | [place] | | [phone] | | + + + + + + + + | Performing | Address | City/State/Zipcode | Phone Number | | Organization | | | | + + + + + | [facility] | [address] | [place], [place] | [phone] | | [facility] [place] | [place] | [address] | | + + + + + documented in this encounter Visit Diagnoses + + | Diagnosis | + + | Secondary hyperparathyroidism (HCC) - Primary Secondary hyperparathyroidism (of renal | | origin) | + + | Other osteoporosis without current pathological fracture | + + | Hypopituitarism (HCC) Panhypopituitarism | + + | Secondary adrenal insufficiency (HCC) Glucocorticoid deficiency | + + | Secondary hypothyroidism Other specified acquired hypothyroidism | + + | Hypokalemia due to loss of potassium | + + documented in this encounter
--- OUTSIDE RECORDS SUMMARY | ~2020-01-04 | XMS | Encounter Summary ---
Demographics + + + | Address | [address] | | | [place] [address] | + + + | Home Phone | | + + + | Preferred Language | Unknown | + + + | Marital Status | | + + + | Taoism Affiliation | 1027 | + + + | Race | Unknown | + + + | Ethnic Group | Unknown | + + + Author + + + | Author | [facility] | | | and [place] | + + + | Organization | [facility] | | | and [place] | + + + | Address | Unknown | + + + | Phone | Unavailable | + + + Support + + + + + | Name | Relationship | Address | Phone | + + + + + | Cristoefr Vogt | ECON | [address] | | | | | [address], | | | | | [place] [address] | | + + + + + | Ryan Vogt | ECON | Unknown | | + + + + + | Rob Vogt | ECON | Unknown | | + + + + + Care Team Providers + +------+ + | Care Fresh Meat Grader Name | Role | Phone | + +------+ + PCP | Unavailable | + +------+ + Encounter Details +--------+ + + + + | Date | Type | Department | Care Team | Description | +--------+ + + + + | 05/16/ | Hospital | [facility] | Abrahan Samaniego MD | | | 2008 | Encounter | MED CTR XRAY [address] | [address] [facility] | | | | | [place] | [place] | | | | | [place] [address] | [id number] | | | | | [phone] | | | +--------+ + + + [...] | | 2019 | Visit | | [facility] [address] | | | | | | [place] | | | | | | [address] | | | | | | | | +--------+---------+ + + + | 07/25/ | Office | Cardiology | Renetta, | | | 2020 | Visit | | [facility] [address] | | | | | | [place], | | | | | | [place] [address] | | | | | | [phone] | | | | | | | | +--------+---------+ + + + | 09/03/ | Office | Endocrinology | Cheryl Zee MD | | | 2020 | Visit | | [address] [place] | | | | | | [address] [place] | | | | | | [address] | | | | | | | | +--------+---------+ + + + documented as of this encounter Visit Diagnoses Not on filedocumented in this encounter"
--- OUTSIDE RECORDS SUMMARY | ~2020-01-04 | XMS | Encounter Summary ---
Demographics + + + | Address | [address] | | | [place] [address] | + + + | Home Phone | | + + + | Preferred Language | Unknown | + + + | Marital Status | | + + + | Caodaism Affiliation | 1027 | + + + | Race | Unknown | + + + | Ethnic Group | Unknown | + + + Author + + + | Author | [facility] | | | and [place] | + + + | Organization | [facility] | | | [...] [place], | | | | | [place] [address] | | + + + + + | Ryan Vogt | ECON | Unknown | | + + + + + | Rob Vogt | ECON | Unknown | | + + + + + Care Team Providers + +------+ + | Care International Account Manager Name | Role | Phone | + +------+ + PCP | Unavailable | + +------+ + Encounter Details +--------+ + + + + | Date | Type | Department | Care Team | Description | +--------+ + + + + | 12/22/ | Hospital | [facility] | Ifeanyi Romo, | | | 2007 | Encounter | MED CTR XRAY [address] | [address] | | | | | [place] | [place] | | | | | [place] [address] | [address] | | | | | [phone] | | | +--------+ + + + [...] | | 2019 | Visit | | [facility] [address] | | | | | | [place] | | | | | | [address] | | | | | | | | +--------+---------+ + + + | 07/25/ | Office | Cardiology | Renetta, | | | 2020 | Visit | | [facility] [address] | | | | | | [place], | | | | | | [place] [address] | | | | | | [phone] | | | | | | | | +--------+---------+ + + + | 09/03/ | Office | Endocrinology | Cheryl Zee MD | | | 2020 | Visit | | [address] | | | | | | [address] [place] | | | | | | [address] | | | | | | | | +--------+---------+ + + + documented as of this encounter Visit Diagnoses Not on filedocumented in this encounter"
--- OUTSIDE RECORDS SUMMARY | ~2020-01-04 | XMS | Encounter Summary ---
Demographics + + + | Address | [address] | | | [place] [address] | + + + | Home Phone | | + + + | Preferred Language | Unknown | + + + | Marital Status | | + + + | Pentecostal Affiliation | 1027 | + + + | Race | Unknown | + + + | Ethnic Group | Unknown | + + + Author + + + | Author | [facility] | | | and [place] | + + + | Organization | [facility] | | | [...] [place], | | | | | [place] [address] | | + + + + + | Ryan Vogt | ECON | Unknown | | + + + + + | Rob Vogt | ECON | Unknown | | + + + + + Care Team Providers + +------+ + | Care Steep Tender Name | Role | Phone | + +------+ + | Abrahan Samaniego MD | PCP | | + +------+ + Encounter Details +--------+ + + + + | Date | Type | Department | Care Team | Description | +--------+ + + + + | 10/26/ | Orders Only | [facility] | Christina Wilson, | | | 2012 | | MEDICINE [address] | DIGITAL PRINT OPERATOR | | | | | [place], | | | | | | [place] [address] | | | | | | [phone] | | | +--------+ + + + [...] [place] | | | | | | [address] | | | | | | | | +--------+---------+ + + + | 07/25/ | Office | Cardiology | Renetta, | | | 2020 | Visit | | [facility] [address] | | | | | | [place] | | | | | | [place] [address] | | | | | | [phone] | | | | | | | | +--------+---------+ + + + | 09/03/ | Office | Endocrinology | Cheryl Zee MD | | | 2020 | Visit | | [address] | | | | | | [address] [place] | | | | | | [id number] | | | | | | | | +--------+---------+ + + + documented as of this encounter Visit Diagnoses Not on filedocumented in this encounter"
--- OUTSIDE RECORDS SUMMARY | ~2020-01-04 | XMS | Encounter Summary ---
Demographics + + + | Address | [address] | | | [place] [address] | + + + | Home Phone [...] Author | [facility] | | | and [...] [place], | | | | | [place] [address] | | + + + + + | Ryan Vogt | ECON | Unknown | | + + + + + | Rob Vogt | ECON | Unknown | | + + + + + Care Team Providers + +------+ + | Care Unmanned Aircraft Systems Roboticist Name | Role | Phone | + +------+ + | Abrahan Samaniego MD | PCP | | + +------+ + Reason for Visit + +--------+ + | Reason | Onset | Comments | | | Date | | + +--------+ + | Screening For | 09/18/ | | | Communicable Disease | 2019 | | + +--------+ + Encounter Details +--------+ + + + + | Date | Type | Department | Care Team | Description | +--------+ + + + + | 09/18/ | Telephone | [facility] | Kiara Ramos, | Screening For | 2019 | | MEDICINE [facility] [address] | RN | Communicable Disease | | | | [place], | | | | | | [place] [address] | | | | | | [phone] | | | +--------+ + + + [...] this encounter Miscellaneous Notes Telephone Encounter - Kiara Ramos RN - 09/19/2019 2:12 PM PDTOliva called me back ab out her test results which are not back yet. She is anxious to get them back so she can go [place] to work. Reviewed with her to continue home quarantine and social isolating until we get the results back of the COVID testing. Encouraged diligent hand washing, rest, and plenty of fluids. Payal montalvo agrees and understands. I told her she will be getting a call from [employer] once her test results are back. Oliva would like to have an art kit delivered to her home. Plan is to have one delivered to her home today. elep karan Encounter - Kiara Ramos RN - 09/19/2019 1:31 PM PDTReceived a voicemail from Mary martinez asking if her COVID-19 test results were back yet. Called both her home and cell phones. Had to leave her a message that her results are not back as of this time and that she needed to: continue home quarantine and social isolating until we get the results back of the COVI D testing. Encouraged diligent hand washing, rest, and plenty of fluids documented in this encounter Plan of Treatment +--------+---------+ + + + | Date | Type | Specialty | Care Team | Description | +--------+---------+ + + + | 04/29/ | Office | Internal Medicine | Abrahan Samaniego MD | | | 2019 | Visit | | [place] | | | | | | [place] | | | | | | [address] | | | | | | | | +--------+---------+ + + + | 07/25/ | Office | Cardiology | Renetta, | | | 2020 | Visit | | [facility] [address] | | | | | | [place] | | | | | | [place] [address] | | | | | | [phone] | | | | | | | | +--------+---------+ + + + | 09/03/ | Office | Endocrinology | Cheryl Zee MD | | | 2020 | Visit | | [address] | | | | | | [address] [place] | | | | | | [phone] | | | | | | | [...]
--- OUTSIDE RECORDS SUMMARY | ~2020-01-04 | XMS | Encounter Summary ---
Demographics + + + | Address | [address] | | | [place] [address] | + + + | Home Phone [...] + | Author | [facility] | | | and [...] [place], | | | | | [place] [address] | | + + + + + | Ryan Vogt | ECON | Unknown | | + + + + + | Rob Vogt | ECON | Unknown | | + + + + + Care Team Providers + +------+ + | Care Nurse Chemical Dependency Name | Role | Phone | + +------+ + | Abrahan Samaniego MD | PCP | | + +------+ + Reason for Visit +---------+--------+ + | Reason | Onset | Comments | | | Date | | +---------+--------+ + | Results | 10/26/ | | | | 2012 | | +---------+--------+ + Encounter Details +--------+ + + + + | Date | Type | Department | Care Team | Description | +--------+ + + + + | 10/26/ | Telephone | [facility] | Abrahan Samaniego MD | Results | | 2012 | | [facility] [address] | [address] [facility] | | | | | [place], | [place] | | | | | [place] [address] | [address] | | | | | [phone] | | | +--------+ + + + [...] Telephone Encounter - Christina Wilson LPN - 10/26/2012 1:[address] Samaniego, notifi ed patient of normal brain MRI and advised to take ASA 81mg daily. documented in this encounter Plan of Treatment +--------+---------+ + + + | Date | Type | Specialty | Care Team | Description | +--------+---------+ + + + | 04/29/ | Office | Internal Medicine | Abrahan Samaniego MD | | | 2019 | Visit | | [address] [place] [address] | | | | | | [place] | | | | | | [address] | | | | | | | | +--------+---------+ + + + | 07/25/ | Office | Cardiology | Renetta, | | | 2020 | Visit | | [facility] [address] | | | | | | [place] | | | | | | [place] [address] | | | | | | [phone] | | | | | | | | +--------+---------+ + + + | 09/03/ | Office | Endocrinology | Cheryl Zee MD | | | 2020 | Visit | | [address] | | | | | | [address] [place] | | | | | | [address] | | | | | | | | +--------+---------+ + + + documented as of this encounter Visit Diagnoses Not on filedocumented in this encounter"
--- OUTSIDE RECORDS SUMMARY | ~2020-01-04 | XMS | Encounter Summary ---
Demographics + + + | Address | [address] | | | [place] [address] | + + + | Home Phone | | + + + | Preferred Language | Unknown | + + + | Marital Status | | + + + | Episcopalian Affiliation | 1027 | + + + | Race | Unknown | + + + | Ethnic Group | Unknown | + + + Author + + + | Author | [facility] | | [...] [place], | | | | | [place] [address] | | + + + + + | Ryan Vogt | ECON | Unknown | | + + + + + | Rob Vogt | ECON | Unknown | | + + + + + Care Team Providers + +------+ + | Care Financial Advocate Name | Role | Phone | + [...] | Specialty | Physical | Diagnoses | [facility] | [facility] | | | Services | Therapy / | Cervical | Abrahan Cortez MD | Pt Op [address] | | | Required | Rehabilitatio | spondylolysi | [address] | [place] | | | | [address] | [address] | [address] | [place], | | | | | | [place], | [place] [address] | | | | | | [place] [address] | Phone: | | | | | | Phone: | [phone] | | | | | | [phone] | Fax: | | | | | | Fax: | [phone] | | | | | | [phone] | | +--------+ + + + + + Reason for Visit +---------+--------+ + | Reason | Onset | Comments | | | Date | | +---------+--------+ + | Results | 06/22/ | | | | 2014 | | +---------+--------+ + Encounter Details +--------+ + + + + | Date | Type | Department | Care Team | Description | +--------+ + + + + | 06/22/ | Telephone | [facility] | Abrahan Samaniego MD | Results | | 2014 | | [address] | [address] [place] [address] | | | | | [place], | [place] | | | | | [place] [address] | [address] | | | | | [phone] | | | +--------+ + + + [...] Telephone Encounter - Christina Wilson LPN - 06/25/2014 10:34 AM PSTNotified patient and sh e agrees to Physical Therapy -referral pending. elephone Encounter - Abrahan Samaniego MD - 06/22/2014 5:14 PM PST Neck XRAY shows arthritis. I would like to set her up with PT if that is ok with her. -(orde red) documented in this encounter Plan of Treatment +--------+---------+ + + + | Date | Type | Specialty | Care Team | Description | +--------+---------+ + + + | 04/29/ | Office | Internal Medicine | Abrahan Samaniego MD | | | 2019 | Visit | | [address] [place] [address] | | | | | | [place] | | | | | | [address] | | | | | | | | +--------+---------+ + + + | 07/25/ | Office | Cardiology | Renetta, | | | 2020 | Visit | | [facility] [address] | | | | | | [place], | | | | | | [place] [address] | | | | | | [phone] | | | | | | | | +--------+---------+ + + + | 09/03/ | Office | Endocrinology | Cheryl Zee MD | | | 2020 | Visit | | [address] [place] | | | | | | [address] [place] | | | | | | [phone] | | | | | | | | +--------+---------+ + + + + + +--------+ + + | Name | Type | Priori | Associated Diagnoses | Order Schedule | | | | ty | | | + + +--------+ + + | * [facility] Physical | Outpatient | Routin | Cervical | Ordered: 06/22/2014 | | Therapy - AMB | Referral | e | spondylolysis | | | Referral | | | | | + + +--------+ + + documented as of this encounter Visit Diagnoses + + | Diagnosis | + + | Cervical spondylolysis - Primary Other congenital anomaly of spine | + + documented in this encounter"
--- OUTSIDE RECORDS SUMMARY | ~2020-01-04 | XMS | Encounter Summary ---
Demographics + + + | Address | [address] | | | [place] [address] | + + + | Home Phone [...] + | Author | [facility] | | | and [place] | + + + | Organization | [facility] | | | [...] [place], | | | | | [place] [address] | | + + + + + | Ryan Vogt | ECON | Unknown | | + + + + + | Rob Vogt | ECON | Unknown | | + + + + + Care Team Providers + +------+ + | Care Finishing Lab Technician Name | Role | Phone | + +------+ + | Abrahan Samaniego MD | PCP | | + +------+ + Reason for Visit + +--------+ + | Reason | Onset | Comments | | | Date | | + +--------+ + | Appointment | 01/16/ | | | | 2019 | | + +--------+ + Encounter Details +--------+ + + + + | Date | Type | Department | Care Team | Description | +--------+ + + + + | 01/16/ | Telephone | [facility] | Abrahan Samaniego MD | Appointment | | 2019 | | [address] | [address] [place] [address] | | | | | [place], | [place] | | | | | [place] [address] | [address] | | | | | [phone] | | | +--------+ + + + [...] this encounter Miscellaneous Notes Telephone Encounter - Irma Acosta - 01/17/2019 8:12 AM PDTCalled lvm giving below message elephone Alexa almendarez - Christina Wilson LPN - 01/16/2019 4:37 PM PDTPlease advise patient we can put her on a wait list but no other appt's available at this time. elephone Encounter - Marla Cobian - 01/16/2019 4:34 PM PDTPatient called states she has a very important wedding to attend the same day o f her appointment 01/20/2019 patient is states she really needs to see but is need ing to reschedule patient is asking for a possible work in appointment the week of the 01/23 please call her at [phone]. 19 4:36 PM PDTdocumented in this encounter Plan of Treatment +--------+---------+ + + + | Date | Type | Specialty | Care Team | Description | +--------+---------+ + + + | 04/29/ | Office | Internal Medicine | Abrahan Samaniego MD | | | 2019 | Visit | | [place] | | | | | | [place] | | | | | | [address] | | | | | | | | +--------+---------+ + + + | 07/25/ | Office | Cardiology | Renetta, | | | 2020 | Visit | | [facility] [address] | | | | | | [place] | | | | | | [place] [address] | | | | | | [phone] | | | | | | | | +--------+---------+ + + + | 09/03/ | Office | Endocrinology | Cheryl Zee MD | | | 2020 | Visit | | [address] [place] | | | | | | [address] [place] | | | | | | [address] | | | | | | | | +--------+---------+ + + + documented as of this encounter Visit Diagnoses Not on filedocumented in this encounter"
--- OUTSIDE RECORDS SUMMARY | ~2020-01-04 | XMS | Encounter Summary ---
Demographics + + + | Address | [address] | | | [place] [address] | + + + | Home Phone | | + + + | Preferred Language | Unknown | + + + | Marital Status | | + + + | Faith Affiliation | 1027 | + + + | Race | Unknown | + + + | Ethnic Group | Unknown | + + + Author + + + | Author | [facility] | | | and [place] [...] [address] | | | | | [address], | | | | | [place] [address] | | + + + + + | Ryan Vogt | ECON | Unknown | | + + + + + | Rob Vogt | ECON | Unknown | | + + + + + Care Team Providers + +------+ + | Care Short Filler Bunch Machine Operator Name | Role | Phone | + +------+ + | Abrahan Samaniego MD | PCP | | + +------+ + Reason for Visit Auth/Cert +--------+--------+ + + + + | Status | Reason | Specialty | Diagnoses / | Referred By | Referred To | | | | | Procedures | Contact | Contact | +--------+--------+ + + + + | | | | Diagnoses | | Watkins, | | | | | Complex | | Eugene Shrestha MD | | | | | tear of | | [address] | | | | | medial | | [address] [place] | | | | | meniscus of | | [place] | | | | | right knee | | [address] Phone: | | | | | as current | | [phone] | | | | | injury, | | Fax: | | | | | initial | | [phone] | | | | | encounter | [...] | | | | | | | OR KNEE | | | | | | | SCOPE,DIAGNO | | | | | | | STIC OR | | | | | | | KNEE | | | | | | | SCOPE,PART | | | | | | | SYNOVECT OR | | | | | | | KNEE | | | | | | | SCOPE,SHAVE | | | | | | | ARTICULAR | | | | | | | CART OR | | | | | | | ARTHRS KNEE | | | | | | | W/MENISCECTO | | | | | | | MY MED&LAT | | | | | | | W/SHAVING | | | | | | | OR ARTHRS | | | | | | | KNE SURG | | | | | | | W/MENISCECTO | | | | | | | MY MED/LAT | | | | | | | W/SHVG OR | | | | | | [...] Description | +--------+---------+ + + + | 06/02/ | Surgery | [facility] | Eugene Watkins | RIGHT KNEE | | 2019 | | [facility] OR [facility] OP | MD Fady [address] | ARTHROSCOPY AND | | | | [address] | [place] | DEBRIDEMENT, partial | | | | [place] | [address] | lateral | | | | [address] | | meniscectomy, | | | | [phone] | | partial medial | | | | | | meniscectomy, medial | | | | | | femoral | | | | | | chondroplasty, and | | | | | | patellar | | | | | | chondroplasty | +--------+---------+ + + + Social History [...] + + + | Blood Pressure | 146/70 | 06/02/2019 10:37 AM | | | | | PST | | + + + + + | Pulse | 78 | 06/02/2019 10:37 AM | | | | | PST | | + + + + + | Temperature | 36.5 C (97.7 F) | 06/02/2019 10:37 AM | | | | | PST | | + + + + + | Respiratory Rate | 16 | 06/02/2019 10:37 AM | | | | | PST | | + + + + + | Oxygen Saturation | 97% | 06/02/2019 10:37 AM | | | [...] from water with Saran wrap or something simil ar. Post Operative Care: You can discontinue use [...] mg of acetaminophen (Tylenol) per day. Hydrocodone-acetaminophen ([place] ) and Oxycodone-acetaminophen (Percocet) have 325 mg acetaminophen per tablet. Regular stren [facility] acetaminophen is 325 mg per tablet. Extra [...] + documented as of this encounter H&P Eugene Cruz MD - 06/02/2019 12:59 PM PSTSURGICAL INTERIM [...] by: Eugene Watkins MD, 06/02/2019 12:[address] [facility], Eugene Shrestha MD - 05/23/2019 10:00 AM PST History [...] CV LHC; Surgeon: Benigno Deras MD; Location: [facility] CV LAB CHOLECYSTECTOMY COLONOSCOPY 03/12/2014 COLONOSCOPY; Laterality: N/A; Surgeon: Shaji Thornton MD; Location: [facility] MEDICAL PROCEDU RE UNIT CYST REMOVAL Left 1970 ENDOMETRIAL BIOPSY 2007 Benign Skull Biopsy 09/28/2011 [...] file Gets together: Not on file Attends mu-ism service: Not on file Active member of [...] in 2019 . She works at the [employer]. She doesn't exercise because she is so busy with h er grands. Enjoys doing [email or web address]. 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 Review [...] th is encounter Miscellaneous Notes Plan of Katie - Brigido Donald, PT - 06/02/2019 6:08 [...] to into her home and her designated care taker, who will be taking her home, is trained to provide supervision. Assessment: Oliva Vogt has met PT goals and is safe to return home with assistanc e. Electronically signed by: Brigido Donald, PT, 06/02/2019 6:09 PM ICD-10-CM ICD-9-CM 1. Complex tear of medial meniscus of right knee as current injury, initial encounter S83.2 31A 836.0 DME: Crutches Added automatically from request for surgery [id number] 2. Right knee pain, unspecified chronicity M25.561 719.46 Added automatically from request for surgery [id number] 3. Acute pain of right knee M25.561 719.46 Added automatically from request for surgery [id number] 4. Complex tear of lateral meniscus of right knee as current injury, initial encounter S83. 271A 836.1 5. Chondromalacia of knee, right M94.261 717.7 p Note - Treer son, Eugene Shrestha MD - 06/02/2019 2:10 PM PSTOPERATIVE REPORT EUGENE WATKINS MD Patient: Oliva Vogt Admitting: EUGENE WATKINS MR #: [id number] DATE OF SURGERY:06/02/2019 DATE OF DICTATION:06/02/2019 OPERATIVE SURGEON: Dr. Eugene Watkins IT QUALITY ANALYST: Mitch Hopkins PA-C ANESTHESIOLOGIST: Dr. Amilcar More [...] | | 2019 | Visit | | [address] [place] [address] | | | | | | [place] | | | | | | [address] | | | | | | | | +--------+---------+ + + + | 07/25/ | Office | Cardiology | Renetta, | | | 2020 | Visit | | P[address] | | | | | | [address] [place], | | | | | | [place] [address] | | | | | | [phone] | | | | | | | | +--------+---------+ + + + | 09/03/ | Office | Endocrinology | Cheryl Zee MD | | | 2020 | Visit | | [address] | | | | | | [address] [place] | | | | | | [id number] | | | | | | | [...] | 650 mg 650 mg, Oral, ONCE, Wed | | 19 11:15 | | | [...] ONCE PRN, Wheezing, | | | Starting 06/02/19 at 1410, | | | For 1 dose, Notify anesthesia if | | | patient is wheezing and does not | | | have a history of asthma or COPD | | | or current smoking., | | | Recovery/Phase I | | + +---+ | | | + +---+ + +-------+ +------+---+ + | betamethasone (CELESTONE | Given | 06/02/20 | 1 mL | | Surgical | | SOLUSPAN) injection PRN, | | 19 2:07 | | | Site | | Starting Wed06/02/19 at 1407, | | PM PST | | | | | Intra-op | | | | | | + +-------+ +------+---+ + + +---+ | | | + +---+ [...] mg 200 mg, Oral, ONCE, Wed | | 11:15 | | | | | [...] HOURS PRN, | | | Itching, Starting Wed06/02/19 at | | | 1545, Give nalbuphine [...] One week or | | | longer, yjsfmw-fxm-trefk use of | | | at least [...] | 600 mg 600 mg, Oral, ONCE, Wed | | 11:15 | | | | | [...] MIN PRN, | | | Pain, Starting 06/02/19 at | | | 1410, First dose [...] One week or longer, | | | eaqtks-wmy-ojpgy use of at least | | | [...] +---+---+ | | | +---+---+ + +-------+ +--------+---+ + | lidocaine 2%-EPINEPHrine | Given | 06/02/20 | 20 mLs | | Surgical | | 1:100,000 injection PRN, | | 19 1:37 | | | Site | | Starting 06/02/19 at 1337, | | PM PST | | | | | Intra-op | | | | | | + +-------+ +--------+---+ + +---+---+ | | | +---+---+ + +-------+ +-------+---+---+ | metoclopramide (REGLAN) 5 mg/mL | Given | 06/02/20 | 10 mg | | | | injection 10 mg 10 mg, | | 19 4:50 | | | | | Intravenous, ONCE, 06/02/19 | | PM PST | | | [...] PRN, Nausea, | | | Vomiting, Starting 06/02/19 | | | at 1545, First line agent, | | | Post-op/Phase II | | + +---+ | | | + +---+ | ondansetron (ZOFRAN) injection | | | 4 mg 4 mg, Intravenous, ONCE | | | PRN, Nausea, Starting Fri | | | 06/02/19 at 1410, For [...] mg Optesia | | | Mixture Infiltration, HOUSEKEEPER, | | | Starting Wed06/02/19 at 1241, | | | For 1 dose, Pre-op | | + +---+ | | | + +---+ + +-------+ +--------+---+ + | ropivacaine (NAROPIN) 5 mg/mL | Given | 06/02/20 | 18 mLs | | Surgical | | (0.5%) injection PRN, Starting | | 19 2:07 | | | Site | | 06/02/19 at 1407, Intra-op | | PM PST | | | | + +-------+ +--------+---+ + +---+---+ | | | +---+---+ documented in this encounter
--- OUTSIDE RECORDS SUMMARY | ~2020-01-04 | XMS | Encounter Summary ---
Demographics + + + | Address | [address] | | | [place] [address] | + + + | Home Phone | | + + + | Preferred Language | Unknown | + + + | Marital Status | | + + + | Yazdanism Affiliation | 1027 | + + + | Race | Unknown | + + + | Ethnic Group | Unknown | + + + Author + + + | Author | [facility] | | [...] [place], | | | | | [place] [address] | | + + + + + | Ryan Vogt | ECON | Unknown | | + + + + + | Rob Vogt | ECON | Unknown | | + + + + + Care Team Providers + +------+ + | Care Insurance Claim Representative Name | Role | Phone | + +------+ + | Abrahan Samaniego MD | PCP | | + +------+ + Reason for Visit + +--------+ + | Reason | Onset | Comments | | | Date | | + +--------+ + | Medication Refill | 11/23/ | | | | 2016 | | + +--------+ + Encounter Details +--------+--------+ + + + | Date | Type | Department | Care Team | Description | +--------+--------+ + + + | 11/23/ | Refill | [facility] [place] [facility] | Abrahan Samaniego MD | Medication Refill | | 2016 | | [address] | [address] [facility] | | | | | [place], | [place] | | | | | [place] [address] | [address] | | | | | [phone] | | | +--------+--------+ + + + [...] Telephone Encounter - Delphine Doan RN - 11/23/2016 3:33 PM PDTOk to refill? Last TSH 08/18/14 docu mented in this encounter Plan of [...] [place] | | | | | | [address] | | | | | | | | +--------+---------+ + + + | 07/25/ | Office | Cardiology | Renetta, | | | 2020 | Visit | | P[facility] [address] | | | | | | [place] | | | | | | [place] [address] | | | | | | [phone] | | | | | | | | +--------+---------+ + + + | 09/03/ | Office | Endocrinology | Cheryl Zee MD | | | 2020 | Visit | | [address] | | | | | | [address] [place] | | | | | | [address] | | | | | | | | +--------+---------+ + + + documented as of this encounter Visit Diagnoses Not on filedocumented in this encounter"
--- OUTSIDE RECORDS SUMMARY | ~2020-01-04 | XMS | Encounter Summary ---
Demographics + + + | Address | [address] | | | [place] [address] | + + + | Home Phone | | + + + | Preferred Language | Unknown | + + + | Marital Status | | + + + | Muslim Affiliation | 1027 | + + + | Race | Unknown | + + + | Ethnic Group | Unknown | + + + Author + + + | Author | [facility] | | | and [place] | + + + | Organization | [facility] | | | and [place] | + + + | Address | Unknown | + + + | Phone | Unavailable | + + + Support + + + + + | Name | Relationship | Address | Phone | + + + + + | Cristofer Votg | ECON | [address] | | | | | [address], | | | | | [place] [address] | | + + + + + | Ryan Vogt | ECON | Unknown | | + + + + + | Rob Vogt | ECON | Unknown | | + + + + + Care Team Providers + +------+ + | Care Tank Welder Name | Role | Phone | + +------+ + | Abrahan Samaniego MD | PCP | | + +------+ + Reason for Visit + +--------+ + | Reason | Onset | Comments | | | Date | | + +--------+ + | Medication Refill | 01/01/ | | | | 2013 | | + +--------+ + Encounter Details +--------+--------+ + + + | Date | Type | Department | Care Team | Description | +--------+--------+ + + + | 01/01/ | Refill | [facility] | Abrahan Samaniego MD | Medication Refill | | 2013 | | [address] | [address] [place] [address] | | | | | [place], | [place] | | | | | [place] [address] | [id number] | | | | | [phone] | | | +--------+--------+ + + + [...] Telephone Encounter - Abrahan Samaniego MD - 01/02/2014 6:13 PM PDTOrderedElectronically sig lesley by Abrahan Samaniego MD at 01/02/2014 6:14 PM PDTTelephone Encounter - Delphine Doan R N - 01/01/2014 3:23 PM PDTDr Zee prescribed prednisone and the levoxyl [address] Zee has left will Dr Samaniego refill her prescriptions? She has a little prednisone left She is out of levoxyl. There are no up to date thyroid labs. She will have the [facility] send them over Can we refill pending labs? She uses [facility] Contact the patient at [phone] documented in this encounter Plan of Treatment +--------+---------+ + + + | Date | Type | Specialty | Care Team | Description | +--------+---------+ + + + | 04/29/ | Office | Internal Medicine | Abrahan Samaniego MD | | | 2019 | Visit | | [address] [facility] | | | | | | [place] | | | | | | [address] | | | | | | | | +--------+---------+ + + + | 07/25/ | Office | Cardiology | Renetta, | | | 2020 | Visit | | [place] [address] | | | | | | [place], | | | | | | [place] [address] | | | | | | [phone] | | | | | | | | +--------+---------+ + + + | 09/03/ | Office | Endocrinology | Cheryl Zee MD | | | 2020 | Visit | | [address] | | | | | | [address] [place] | | | | | | [phone] | | | | | | | | +--------+---------+ + + + documented as of this encounter Visit Diagnoses Not on filedocumented in this encounter"
--- OUTSIDE RECORDS SUMMARY | ~2020-01-04 | XMS | Encounter Summary ---
Demographics + + + | Address | [address] | | | [place] [address] | + + + | Home Phone | | + + + | Preferred Language | Unknown | + + + | Marital Status | | + + + | Anabaptist Affiliation | 1027 | + + + | Race | Unknown | + + + | Ethnic Group | Unknown | + + + Author + + + | Author | [facility] | | | and [place] | [...] [place], | | | | | [place] [address] | | + + + + + | Ryan Vogt | ECON | Unknown | | + + + + + | Rob Vogt | ECON | Unknown | | + + + + + Care Team Providers + +------+ + | Care Forest Technician Name | Role | Phone | + +------+ + | Abrahan Samaniego MD | PCP | | + +------+ + Encounter Details +--------+ + + + + | Date | Type | Department | Care Team | Description | +--------+ + + + + | 12/28/ | Imaging | [facility] | Cheryl Zee MD | | | 2020 | Exam | [address] [address] | [address] | | | | | [address] [place] | [address] [place], [place] | | | | | [place] [address] | [address] | | | | | [phone] | | | +--------+ + + + [...] 2019 | Visit | | [address] | | | | | | [place] | | | | | | [address] | | | | | | | | +--------+---------+ + + + | 07/25/ | Office | Cardiology | Renetta, | | | 2020 | Visit | | [place] [address] | | | | | | [place], | | | | | | [place] [address] | | | | | | [phone] | | | | | | | | +--------+---------+ + + + | 09/03/ | Office | Endocrinology | Cheryl Zee MD | | | 2020 | Visit | | [address] | | | | | | [address] [...] Results for this | | STUDY WO ROSEMARIE FX | e | 11:29 AM | unspecified | procedure are in the | | ASSESSMENT | | PDT | osteoporosis type, | results section. | | | | | unspecified | | | | | | pathological | | | | | | fracture presence | | + +--------+ + + + documented in this encounter Results DEXA Bone Density wo Vert Fx Assmt (12/29/2019 11:29 AM PDT) + [...] | DEXA BONE DENSITY STUDY WO ROSEMARIE FX ASSESSMENT 12/29/2019 11:29 AM | [facility] [...] Procedure Note | + + | Vishnu, [id number] - 12/29/2019 11:50 AM PDT DEXA BONE DENSITY STUDY WO ROSEMARIE FX ASSESSMENT | | 12/29/2019 11:29 AMHISTORY: [...]
--- OUTSIDE RECORDS SUMMARY | ~2020-01-04 | XMS | Encounter Summary ---
Demographics + + + | Address | [address] | | | [place] [address] | + + + | Home Phone | | + + + | Preferred Language | Unknown | + + + | Marital Status | | + + + | Islam Affiliation | 1027 | + + + | Race | Unknown | + + + | Ethnic Group | Unknown | + + + Author + + + | Author | [facility] | | | and [...] [place], | | | | | [place] [address] | | + + + + + | Ryan Vogt | ECON | Unknown | | + + + + + | Rob Vogt | ECON | Unknown | | + + + + + Care Team Providers + +------+ + | Care College Or University Business Manager Name | Role | Phone | [...] Description | +--------+--------+ + + + | 12/23/ | Refill | [facility] | Benigno Deras, | Medication Refill | | 2018 | | CARDIOLOGY [address] | MD [address] | | | | | [place], | [place], | | | | | [place] [address] | [place] [address] | | | | | [phone] | [phone] | | | | | | | | +--------+--------+ + + + [...] | | | | | | [place] [address] | | | | | | [phone] | | | | | | | | +--------+---------+ + + + | 09/03/ | Office | Endocrinology | Cheryl Zee MD | | | 2020 | Visit | | [address] | | | | | | [address] [place] | | | | | | [address] | | | | | | | | +--------+---------+ + + + documented as of this encounter Visit Diagnoses Not on filedocumented in this encounter"
--- OUTSIDE RECORDS SUMMARY | ~2020-01-04 | XMS | Encounter Summary ---
Demographics + + + | Address | [address] | | | [place] [address] | + + + | Home Phone [...] Author | [facility] | | | and [place] | [...] [place], | | | | | [place] [address] | | + + + + + | Ryan Vogt | ECON | Unknown | | + + + + + | Rob Vogt | ECON | Unknown | | + + + + + Care Team Providers + +------+ + | Care Wringer Operator Name | Role | Phone | + +------+ + | Abrahan Samaniego MD | PCP | | + +------+ + Encounter Details +--------+---------+ + + + | Date | Type | Department | Care Team | Description | +--------+---------+ + + + | 02/03/ | Office | [facility] | Abrahan Samaniego MD | Right wrist pain | | 2015 | Visit | MEDICINE [address] [place] [address] | [address] [place] [address] | (Primary Dx) | | | | [place], | [place] | | | | | [place] [address] | [address] | | | | | [phone] | | | +--------+---------+ + + + [...] documented as of this encounter Progress Notes Abrahan Samaniego MD - 02/04/2016 4:55 PM PDTPatient in the office today complaining of prog ressive right wrist pain with a slightly painful lump on the volar aspect. She denies any t rauma. Says that it's gradually enlarging and that it hurts when she bumps it on something. Exam: Normal range of motion in the wrist. No active tenosynovitis. There is a slightly p ainful, bony mass on the volar aspect of the wrist near the radial head. Assessment and plan: 1. Right wrist pain with painful mass: Suspect that this is either a bone cyst or other cy st. X-ray ordered. document ed in this encounter Plan of Treatment +--------+---------+ + + + | Date | Type | Specialty | Care Team | Description | +--------+---------+ + + + | 04/29/ | Office | Internal Medicine | Abrahan Samaniego MD | | | 2019 | Visit | | [address] [place] [address] | | | | | | [place] | | | | | | [address] | | | | | | | | +--------+---------+ + + + | 07/25/ | Office | Cardiology | Renetta, | | | 2020 | Visit | | P[place] [facility] [address] | | | | | | [place] | | | | | | [place] [address] | | | | | | [phone] | | | | | | | [...]
--- OUTSIDE RECORDS SUMMARY | ~2020-01-04 | XMS | Encounter Summary ---
Demographics + + + | Address | [address] | | | [place] [address] | + + + | Home Phone | | + + + | Preferred Language | Unknown | + + + | Marital Status | | + + + | Evangelical Affiliation | 1027 | + + + | Race | Unknown | + + + | Ethnic Group | Unknown | + + + Author + + + | Author | [facility] | | | and [place] | + + + | Organization | [facility] | | | [...] [place], | | | | | [place] [address] | | + + + + + | Ryan Vogt | ECON | Unknown | | + + + + + | Rob Vogt | ECON | Unknown | | + + + + + Care Team Providers + +------+ + | Care Instrumental Music Teacher Name | Role | Phone | + +------+ + | Abrahan Samaniego MD | PCP | | + +------+ + Reason for Visit + + + | Reason | Comments | + + + | Hospital Follow-up | | + + + Encounter Details +--------+---------+ + + + | Date | Type | Department | Care Team | Description | +--------+---------+ + + + | 12/02/ | Office | [facility] | Abrahan Samaniego MD | Diarrhea (Primary | | 2016 | Visit | MEDICINE [address] | [address] [place] [address] | Dx); Adrenal | | | | [address] [place], | [place] | insufficiency ([facility]); | | | | [place] [address] | [address] | Urinary tract | | | | [phone] | | infection without | | | | | | hematuria, site | | | | | | unspecified | +--------+---------+ + + + Social History [...] + + + | Blood Pressure | 136/70 | 12/03/2015 8:50 AM | | | | | PDT | | + + + + + | Pulse | 64 | 12/03/2015 8:50 AM | | | | | PDT | | + + + + + | Temperature | - | - | | + + + + + | Respiratory Rate | 18 | 12/03/2015 8:50 AM | | | | | PDT | | + + + + + | Oxygen Saturation | 98% | 12/03/2015 8:50 AM | | | | | PDT | | + + + + + | Inhaled Oxygen | - | - | | | Concentration | | | | + + + + + | Weight | 70.5 kg (155 lb 6.4 | 12/03/2015 8:50 AM | | | | oz) | PDT | | + + + + + | Height | 161.3 cm (5' 3.5") | 12/03/2015 8:50 AM | | | | | PDT | | + + + + + | Body Mass Index | 27.1 | 12/03/2015 8:50 AM | | | | | PDT | | + + + + + documented in this encounter Patient Instructions Patient Instructions Abrahan Samaniego MD - 12/03/2015 9:04 AM PDTIncrease your prednisone t o 10 mg daily and then as you feel better decrease it in 2.5 mg increments until you get juan david k down to 5 mg and then DO NOT go any lower than that. Shoot for getting back to 5 mg dose tracy Pereira, 12/10/15 Start on the BRAT diet and gradually increase. BRAT diet is bananas, rice, applesauce, toas t. Take it easy on dairy. P DT documented in this encounter Progress Notes Abrahan Samaniego MD - 12/03/2015 8:59 AM PDT 12/03/2015 Oliva Vogt 1950 History: Oliva Vogt is a 65 y.o. female here for : 1. DIARRHEA AND UTI: She says that she has loose stool now but doesn't feel well yet. Very tired. Denies fever, chills, night sweats, weight loss, loss of appetite. There is no melen a or rectal bleeding. She is using lomotil but use only one dose in the last 24 hours. She says that every time that she urinates that she has some stool. She says that she a feeling that she got too much IVF in the hospital and that every thing feels puffy. No SOB/GELLER. She has adrenal insufficiency and is now back on 5 mg prednisone now. Current Outpatient Rx Name Route Sig Dispense Refill atorvaSTATin (LIPITOR) 10 mg tablet take 1 tablet by mouth NIGHTLY 90 tablet 2 Calcium Carbonate-Vitamin D 600-125 MG-UNIT TABS Oral Take by mouth Daily. cholecalciferol (VITAMIN D-3) 1,000 units tablet Oral Take 1,000 Units by mouth Daily. ciprofloxacin (CIPRO) 500 mg tablet Oral Take 1 tablet by mouth 2 times daily for 5 days. 10 tablet 0 diphenoxylate-atropine (LOMOTIL) 2.5-0.025 mg/5 mL liquid Oral Take 5 mLs by mouth 4 times daily as needed (diarrhea). 60 mL 0 levothyroxine (SYNTHROID, LEVOTHROID) 100 mcg tablet Oral Take 1 tablet by mouth every morning (before breakfast). 90 tablet 3 predniSONE (DELTASONE) 5 mg tablet Oral Take 2 tablets by mouth Daily. 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 No melena , rectal bleeding. Denies any urinary frequency, hesitancy, dysuria, malodorous urine, radha turia. No chest pain, palpitations, shortness of breath, cough, wheezing. Physical Exam: BP 136/70 mmHg | Pulse 64 | Resp 18 | Ht 1.613 m (5' 3.5") | Wt 70.489 kg (155 lb 6.4 oz) | BMI 27.09 kg/m2 | SpO2 98% GEN: No acute distress. Somewhat cushingoid appearing. Alert and oriented. Nontoxic appe aring. Fatigue. HEENT:EOMI, OP normal and moist CHEST: Clear to auscultation. No wheezes, rales, rhonchi. Normal effort and movement CAR: Rhythm:regular Murmur:no Plains:no JVP:no Pulses:normal radial and carotid ABD: non-distended, non-tender. Somewhat hyperactive bowel tones. No hepatosplenomegaly EXT: No clubbing, cyanosis, or edema Skin: Normal turgor Assessment: Plan 1. Diarrhea : All of her cultures were reviewed and remain negative to date. She added to the history today that someone else at work also had something similar. She doesn't know if she gave it to them or vice versa. She is not requiring much in the way of antidiarrheals now, her stool is firming up. She should use the BRAT diet, push Powerade, and then gradually advance her diet as tolerat ed. 2. Adrenal insufficiency (HCC) : I like her to increase her prednisone back to 10 mg in ord er to get a mineralocorticoid effect. She can gradually decrease to prednisone and 2.5 mg increments as she is feeling better. I don't really want to see her back down to 5 mg in any less than 1 week. We talked about signs and symptoms of adrenal insufficiency which she knows well. She will call me if she has any problems. 3. Urinary tract infection without hematuria, site unspecified : An interesting UTI with co ag negative staph. It's sensitive to Cipro. She is on Cipro at discharge. She should take to completion. documented in this enc ounter Plan of Treatment +--------+---------+ + + + | Date | Type | Specialty | Care Team | Description | +--------+---------+ + + + | 04/29/ | Office | Internal Medicine | Abrahan Samaniego MD | | | 2019 | Visit | | [address] | | | | | | [place] | | | | | | [address] | | | | | | | | +--------+---------+ + + + | 07/25/ | Office | Cardiology | Renetta, | | | 2020 | Visit | | [address] | | | | | | [place], | | | | | | [place] [address] | | | | | | [phone] | | | | | | | | +--------+---------+ + + + | 09/03/ | Office | Endocrinology | Cheryl Zee MD | | | 2020 | Visit | | [address] | | | | | | [address] [place] | | | | | | [phone] | | | | | | | | +--------+---------+ + + + documented as of this encounter Visit Diagnoses + + | Diagnosis | + + | Diarrhea - Primary | + + | Adrenal insufficiency (HCC) Glucocorticoid deficiency | + + | Urinary tract infection without hematuria, site unspecified | + + documented in this encounter
--- OUTSIDE RECORDS SUMMARY | ~2020-01-04 | XMS | Encounter Summary ---
Demographics + + + | Address | [address] | | | [place] [address] | + + + | Home Phone [...] | Author | [facility] | [...] [place], | | | | | [place] [address] | | + + + + + | Ryan Vogt | ECON | Unknown | | + + + + + | Rob Vogt | ECON | Unknown | | + + + + + Care Team Providers + +------+ + | Care Brand Engineer Name | Role | Phone | + +------+ + | Abrahan Samaniego MD | PCP | | + +------+ + Reason for Visit +---------+--------+ + | Reason | Onset | Comments | | | Date | | +---------+--------+ + | Results | 07/14/ | | | | 2016 | | +---------+--------+ + Encounter Details +--------+ + + + + | Date | Type | Department | Care Team | Description | +--------+ + + + + | 07/14/ | Telephone | [facility] | Staci Llamas | Results | | 2016 | | CARE [address] | Bro Sun MD | | | | | [place] | [address] | | | | | [address] | [place] | | | | | [phone] | [address] | | | | | | | [...] this encounter Miscellaneous Notes Telephone Encounter - Vale Hopkins Cert MA - 07/14/2016 1:23 PM PSTFormatting of this no te might be different from the original. Hepatitis C Ab NR See Comments (A) Comments: Reactive Signal/Cutoff Ratio: 37.87 The Lyle johnson immunoassay method is used. Hepatitis C results reported in accordance with CDC guidelines. Specimens reported as "Reactive" are strongly reactive with Signal/Cutoff ratios >= 150.00. Approximately 95% of these specimens will confirm positive by a more specific serologic or nucleic acid test (CAR[place]) Specimens that have Signal/Cutoff ratios from 1.00 - 149.99 are considered "Weak Reactives". CDC guidelines suggest that more specific confirmatory testing can be limited to "Weak Reactive" findings. Possible Acute or Chronic HCV infection. False positive screen reactions are known to occur. Quantitative HCV RNA by PCR is recommended for confirmation. PCR will require a new EDTA plasma specimen. If this is a notifiable condition in your state, as the provider, please ensure you follow all applicable local and state reporting requirements. DR LLAMAS REVIEWED AND WOULD LIKE PT TO HAVE QUANTITITIVE HCV RNA TEST ~ CALLED PT AND NOTIFIED HER OF NOTE AND PT UNDERSTOOD AND WILL BE IN- NOTIFIED PT THAT LAB ORDERED WOULD BE ENTERED AND SHE MAY GO TO LAB HERE AT PM OR COME INTO URGENT CARE IF AFTE R 500/ PT UNDERSTOOD AND WILL BE IN SHORTLY. documented in this encounter Plan of Treatment +--------+---------+ + + + | Date | Type | Specialty | Care Team | Description | +--------+---------+ + + + | 04/29/ | Office | Internal Medicine | Abrahan Samaniego MD | | | 2019 | Visit | | [address] | | | | | | [place] | | | | | | [address] | | | | | | | | +--------+---------+ + + + | 07/25/ | Office | Cardiology | Renetta, | | | 2020 | Visit | | [address] | | | | | | [place] | | | | | | [place] [address] | | | | | | [phone] | | | | | | | | +--------+---------+ + + + | 09/03/ | Office | Endocrinology | Cheryl Zee MD | | | 2020 | Visit | | [address] | | | | | | [address] [place] | | | | | | [phone] | | | | | | | | +--------+---------+ + + + documented as of this encounter Results Hepatitis C RNA, Quant, NAAT (07/14/2016 3:09 [...] Lyle | | | | | | COBASAmpliPrep/JOHNSON | | | | | | TaqMan HCV Test, v2.0. | | | | | | The JOHNSON | | | | | | AmpliPrep/COBASTaqMan [...] [place] | | | | | | [address] | | | | + + + + + + + + | Specimen | + + | Blood specimen | | (specimen) | + + + + + + + | Performing | Address | City/State/Zipcode | Phone Number | | Organization | | | | + + + + + | [facility] | [address] | [place] [address] | [phone] | + + + + + documented in this encounter Visit Diagnoses + + | Diagnosis | + + | Needle stick injury, initial encounter - Primary | + + documented in this encounter
--- OUTSIDE RECORDS SUMMARY | ~2020-01-04 | XMS | Encounter Summary ---
Demographics + + + | Address | [address] | | | [place] [address] | + + + | Home Phone [...] Author | [facility] | | | and [...] [place], | | | | | [place] [address] | | + + + + + | Ryan Morales | ECON | Unknown | | + + + + + | Rob Morales | ECON | Unknown | | + + + + + Care Team Providers + +------+ + | Care Fern Picker Name | Role | Phone | + +------+ + | Abrahan Samaniego MD | PCP | | + +------+ + Encounter Details +--------+ + + + + | Date | Type | Department | Care Team | Description | +--------+ + + + + | 08/26/ | Hospital | [facility] | Abrahan Samaniego MD | Shoulder pain | | 2012 - | Encounter | MED CTR XRAY [address] | [address] [facility] | | | | | [place] | [place] | | | 08/28/ | | [place] [address] | [address] | | | 2012 | | [phone] | | | +--------+ + + + [...] [place] | | | | | | [address] | | | | | | | | +--------+---------+ + + + | 07/25/ | Office | Cardiology | Renetta, | | | 2020 | Visit | | [address] | | | | | | [place] | | | | | | [place] [address] | | | | | | [phone] | | | | | | | | +--------+---------+ + + + | 09/03/ | Office | Endocrinology | Cheryl Zee MD | | | 2020 | Visit | | [address] | | | | | | [address] [place] | | | | | | [phone] | | | | | | | | +--------+---------+ + + + documented as of this encounter Procedures + +--------+ + + + | Procedure Name | Priori | Date/Time | Associated Diagnosis | Comments | | | ty | | | | + +--------+ + + + | XR SHOULDER LEFT 2 + | Routin | 08/26/2012 | Shoulder pain | Results for this | | VW | e | 1:46 PM | | procedure are in the | | | | PDT | | results section. | + +--------+ + + + documented in this encounter Results XR Shoulder Left 2 + Vw (08/26/2012 1:46 PM PDT) + + | Specimen | + + | | + + + + + | Narrative | Performed At | + + + | [facility] | [facility] | | Department [address] [place] [address] | [facility] | | [ rep [address]] [ rep [facility] | | [facility]] Signed | - IMAGING | | | | | Patient Name: MONA MORALES Physician: | | | PAOLA.01 : 1950 Age: 62 Sex: F Unit #: [id number] | | | Exam Date: 08/26/12 [place] [facility] [place] | | Report #: [id number] Page: | | | %(RAD)RES..mtdd.print.filter("pg") of %(RAD) | | | RES..mtdd.print.filter("tpg") | | | | | | Accession Number: [id number] | | | LEFT SHOULDER CLINICAL HISTORY: SHOULDER PAIN. | | | FINDINGS: AP Grashey and outlet views of the left shoulder | | | show no fracture or bony destructive change. Joint relationships | | | are normally maintained. The acromioclavicular and coracoclavicular | | | distances are normal. Adjacent soft tissues are normal. | | | IMPRESSION: 1. NEGATIVE STUDY OF THE SHOULDER. | | | Dictated Date/Time: 08/26/2012 13:46 Transcribed | | | Date/Time: 08/26/2012 14:25 Collections Associate: | | | <<Signature on File>> | | | | | | Chan Shahid MD08/26/12 1612 <Electronically signed by | | | Chan Shahid MD> Chan Shahid MD 08/26/12 | | | 1346 Collections Associate: BroadHop Uonwrvrpbsllu33/22/13 1425 | | | Abrahan Samaniego MD | | + + + + + + + + | Performing | Address | City/State/Zipcode | Phone Number | | Organization | | | | + + + + + | [facility] | [address] | [place] | [phone] | | [facility] | | [address] | | | - IMAGING | | | | + + + + + documented in this encounter Visit Diagnoses + + | Diagnosis | + + | Shoulder pain Pain in joint, shoulder region | + + documented in this encounter
--- OUTSIDE RECORDS SUMMARY | ~2020-01-04 | XMS | Encounter Summary ---
Demographics + + + | Address | [address] | | | [place] [address] | + + + | Home Phone | | + + + | Preferred Language | Unknown | + + + | Marital Status | | + + + | Alevism Affiliation | 1027 | + + + | Race | Unknown | + + + | Ethnic Group | Unknown | + + + Author + + + | Author | [facility] | | | and [...] [place], | | | | | [place] [address] | | + + + + + | Ryan Vogt | ECON | Unknown | | + + + + + | Rob Vogt | ECON | Unknown | | + + + + + Care Team Providers + +------+ + | Care Traffic Control Flagger Name | Role | Phone | + [...] Description | +--------+---------+ + + + | 10/14/ | Office | [facility] | Ulices Simmons | Sprain of left | | 2012 | Visit | [facility] | MD Ricco Need | shoulder (Primary | | | | [place] [address] | updated address | Dx); Place of | | | | [address] [facility] | | occurrence, | | | | [place] | | industrial places | | | | [address] | | and premises | | | | [phone] | | | +--------+---------+ + + + [...] + + + | Blood Pressure | 128/78 | 10/14/2012 9:58 AM | | | | | PDT | | + + + + + | Pulse | 72 | 10/14/2012 9:58 AM | | | | | PDT | | + + + + + | Temperature | 36.3 C (97.4 F) | 10/14/2012 9:58 AM | | | | | PDT | | + + + + + | Respiratory Rate | 16 | 10/14/2012 9:58 AM | | | | | PDT | | + + + + + | Oxygen Saturation | - | - | | + + + + + | Inhaled Oxygen | - | - | | | Concentration | | | | + + + + + | Weight | 69.4 kg (153 lb) | 10/14/2012 9:58 AM | | | | | PDT | | + + + + + | Height | 160 cm (5' 3") | 10/14/2012 9:58 AM | | | | | PDT | | + + + + + | Body Mass Index | 27.1 | 10/14/2012 9:58 AM | | | | | PDT | | + + + + + documented in this encounter Progress Notes Ulices Simmons MD - 10/14/2012 11:26 AM PDTSee dictation [id number] liban d by Ulices Simmons MD at 10/14/2012 11:27 AM PDTWarUlices pichardo MD - 10/15/19 13 12:00 AM PDT O[facility] [address] [place] [address] [place] [address] FAX: [phone] OFFICE VISIT : 1950 Claim number: [id number] Date of injury: 01/06/2012 Employer: [employer] Guarantor: Mario Serrano COMPLAINT: Left shoulder injury, scheduled followup. S: The injured worker is 62 years of age, here for a scheduled 2-week followup. Unfortunat kehinde, she has not yet been able to start into physical therapy. Due to some scheduling glitc h, she is not scheduled to start until 10/17/2012. I do not have a specific explanation for why there was this delay. She is doing about the same. She is continuing to do light duty work. She does note that she had a conversation with employers who were inquiring about whe n she would be able to return to her regular work schedule, and there was a mention of lilly higgins on modified duty for only a 12-week period of time, which I know is a policy for the [employer]. I do not think it will be particularly problematic for the injured jayson erickson, as she does have help at work to do the occasional overhead lifting, should that be necessary. Hopefully, she will be responding well to the conservative treatment as I expect , and it will not be an issue. She reports no new development of musculoskeletal or neurolo gic symptomatology. No other changes in background medical information. It should be noted that we discussed the possibility of getting a stepstool so that she can reach the occasion al chart that is overhead, but she states the employers were very concerned that she might lose her balance and fall off and injury herself worse, and so this has not been allowed. OBJECTIVE VITAL SIGNS: Unremarkable. GENERAL: No acute distress. EXTREMITY EXAMINATION: Left shoulder normal to inspection. She has reasonably good forward flexion and elevation, and Apley back scratch test, but she has restrictions and discomfor t with Apley lift-off test. She has good distal neurocirculatory response. IMAGING / DIAGNOSTICS: None indicated based on our evaluation this date. PENDING INTERVENTIONS: Continue conservative management and observe for response to physic al therapy sessions, which are due to start soon. A: Sprain left shoulder. Slow progress to date. P: I have asked the injured worker to contact me should the scheduled appointment for phys ical therapy not occur. I am dismayed that we have had this delay in getting her into thera py. Regardless, I am still optimistic that it will be beneficial and bring about MMI status . I will recheck in 2 weeks' time. I did spend a considerable amount of time talking with t he injured worker about her concerns about what her employer had talked to her about, as fa r as limitation on modified duty being available. She was appreciative of the information p rovided. E: Modified duty. R: The restrictions are: No reaching above the shoulder level with the left arm. Impairme nt undetermined, based on current objective findings. It is not anticipated, but she is not yet MMI status. She will follow up with me in 2 weeks' time. Cam Simmons MD / [facility] JOB #: [id number] signed by Ulices Simmons MD at 10/17/2012 10:15 AM PDTd ocumented in this encounter Miscellaneous Notes Plan of Care - [facility] [place] - 10/14/2012 12:00 AM PDT documented in this encounter [...] | | | | | | [place] [address] | | | | | | [phone] | | | | | | | | +--------+---------+ + + + | 09/03/ | Office | Endocrinology | Cheryl Zee MD | | | 2021 | Visit | | [address] [place] | | | | | | [address] [place] | | | | | | [phone] | | | | | | | [...]
--- OUTSIDE RECORDS SUMMARY | ~2020-01-04 | XMS | Encounter Summary ---
Demographics + + + | Address | [address] | | | [place] [address] | + + + | Home Phone [...] Author | [facility] | | | and [place] | [...] [place], | | | | | [place] [address] | | + + + + + | Ryan Vogt | ECON | Unknown | | + + + + + | Rob Vogt | ECON | Unknown | | + + + + + Care Team Providers + +------+ + | Care Engagement Liaison Name | Role | Phone | + +------+ + | Abrahan Samaniego MD | PCP | | + +------+ + Encounter Details +--------+ + + + + | Date | Type | Department | Care Team | Description | +--------+ + + + + | 06/27/ | Hospital | [facility] | Abrahan Samaniego MD | Back pain of lumbar | | 2016 | Encounter | MED CTR [facility] XRAY | [address] [facility] | region with | | | | [address] [place] | [place] | sciatica; Shortness | | | | [place], [place] | [address] | of breath | | | | [address] | | | | | | [phone] | | | +--------+ + + + [...] [place] | | | | | | [address] | | | | | | | | +--------+---------+ + + + | 07/25/ | Office | Cardiology | Renetta, | | | 2020 | Visit | | [address] | | | | | | [place] | | | | | | [place] [address] | | | | | | [phone] | | | | | | | | +--------+---------+ + + + | 09/03/ | Office | Endocrinology | Cheryl Zee MD | | | 2020 | Visit | | [address] | | | | | | [address] [place] | | | | | | [phone] | | | | | | | | +--------+---------+ + + + documented as of this encounter Procedures + +--------+ + + + | Procedure Name | Priori | Date/Time | Associated Diagnosis | Comments | | | ty | | | | + +--------+ + + + | XR LUMBAR SPINE | Routin | 06/27/2015 | Back pain of | Results for this | | COMPLETE INCLUDING | e | 3:14 PM | lumbar region with | procedure are in the | | BENDING 6 + VW | | PST | sciatica | results section. | + +--------+ + + + | XR CHEST PA AND | Routin | 06/27/2015 | Shortness of | Results for this | | LATERAL | e | 3:14 PM | breath | procedure are in the | | | | PST | | results section. | + +--------+ + + + documented in this encounter Results XR Chest PA and [...] [address] | [place] | [phone] | | [facility] | | [address] | | | - IMAGING | | [...] pain with bilateral radic . COMPARISON: | [facility] | | None available. FINDINGS: Mild levoconvex curvature centered at | MEDICAL CENTER | | the level of L4. Vertebral [...] [address] | [place] | [phone] | | [facility] | | [address] | | | - IMAGING | | | | + + + + + documented in this encounter Visit Diagnoses + + | Diagnosis | + + | Back pain of lumbar region with sciatica | + + | Shortness of breath | + + documented in this encounter"
--- OUTSIDE RECORDS SUMMARY | ~2020-01-04 | XMS | Encounter Summary ---
Demographics + + + | Address | [address] | | | [place] [address] | + + + | Home Phone | | + + + | Preferred Language | Unknown | + + + | Marital Status | | + + + | Buddhism Affiliation | 1027 | + + + | Race | Unknown | + + + | Ethnic Group | Unknown | + + + Author + + + | Author | [facility] | | [...] [place], | | | | | [place] [address] | | + + + + + | Ryan Vogt | ECON | Unknown | | + + + + + | Rob Vogt | ECON | Unknown | | + + + + + Care Team Providers + +------+ + | Care Client Services Representative Name | Role | Phone | + +------+ + | Abrahan Samaniego MD | PCP | | + +------+ + Reason for Visit + + + | Reason | Comments | + + + | Finger Deformity | | + + + Encounter Details +--------+ + + + + | Date | Type | Department | Care Team | Description | +--------+ + + + + | 09/08/ | Emergency | [facility] | Dmitriy Guzman MD | Flor finger, right | | 2017 | | [facility] | [address] | (Primary Dx) | | | | CENTER [address] | [place] | | | | | [place] | [address] | | | | | [address] | | | | | | [phone] | | | +--------+ + + + [...] + + + | Blood Pressure | 149/86 | 09/08/2016 8:15 AM | | | | | PDT | | + + + + + | Pulse | 71 | 09/08/2016 8:15 AM | | | | | PDT | | + + + + + | Temperature | 36.3 C (97.3 F) | 09/08/2016 8:15 AM | | | | | PDT | | + + + + + | Respiratory Rate | 20 | 09/08/2016 8:15 AM | | | | | PDT | | + + + + + | Oxygen Saturation | 99% | 09/08/2016 8:15 AM | | | | | PDT | | + + + + + | Inhaled Oxygen | - | - | | | Concentration | | | | + + + + + | Weight | 66.2 kg (146 lb) | 09/08/2016 8:15 AM | | | | | PDT | | + + + + + | Height | 161.3 cm (5' 3.5") | 09/08/2016 8:15 AM | | | | | PDT | | + + + + + | Body Mass Index | 25.46 | 09/08/2016 8:15 AM | | | | | PDT | | + + + + + documented in this encounter Discharge Instructions Instructions Dmitriy Guzman MD - 09/08/2016Splint for the next several weeks Follow-up with orthopedics Return for worsening symptoms, not improving, other new complaints AttachmentsThe following attachments cannot be sent through Care Everywhere.FLOR ARIAS ( CROATIAN)documented in this encounter Medications at Time of Discharge + + + +---------+ + + | Medication | Sig | Dispensed | Refills | Start | End Date | | | | | | Date | | + + + +---------+ + + | atorvaSTATin | take 1 tablet by | 90 | 2 | 08/01/19 | | | (LIPITOR) 10 mg | mouth NIGHTLY | tablet | | 17 | 8 | | tablet | | [...] documented as of this encounter ED Notes Dmitriy Guzman MD - 09/08/2016 8:45 AM PDT Emergency Department Encounter Note CHIEF COMPLAINT: Finger deformity HPI Oliva Vogt is a 66 y.o. female who presents to the Emergency Department who is ch zacarias hampton when she noted a deformity of her right ring finger. She noticed a band that the last joint. It was on painful. She's had good range of motion other than at that joint . No previous injury to that finger before. No open wound. No other complaint currently. 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 H/O eclampsia History of eclampsia 1971 with DIC, acute renal failure History of blood transfusion Tinnitus Low back pain Dupuytren's fracture Right fifth finger Dupuytren's without contractures. Adrenal insufficiency (HCC) 05/16/2012 Past Surgical History Procedure Laterality Date Tubal ligation Bilateral Cyst removal Left 1970 Endometrial biopsy 2006 Benign Skull biopsy 09/28/2011 (Benign) Colonoscopy 03/12/2014 COLONOSCOPY; Laterality: N/A; Surgeon: Shaji Thornton MD; Location: [facility] Cholecystectomy REVIEW OF SYSTEMS As in history of present illness. PHYSICAL EXAM VITAL SIGNS: (first vital signs):Temp: 36.3 C (97.3 F) Pulse: 71 Resp: 20 SpO2: 99 % BP : 149/86 mmHg Alert oriented appears well nontoxic Focus examination of her ring finger on her right hand reveals flexion at the DIP. Consist ent with mallet finger. There is no tenderness. No crepitus. No step-offs. No deformity otherwise. ASSESMENT & ED COURSE: Patient hears what appears be mallet finger. She does not have any tenderness or swelling to suggest fracture. I think we can limit x-rays at this time. She is placed in a splint. She is to follow-up with orthopedics. She is given return precautions. DISPOSITION: Discharge FINAL IMPRESSION: Mallet finger Dmitriy Guzman MD 09/08/16 0846 documente d in this encounter Miscellaneous Notes ED Triage Notes - Nely Jackson RN - 09/08/2016 8:18 AM PDTBanged or jammed right 4th digit while changing sheets last noc. Was deformed since last noc but not painful. at [facility] (her coworker) advised her to be seen. documented in this encounter Plan of Treatment +--------+---------+ + + + | Date | Type | Specialty | Care Team | Description | +--------+---------+ + + + | 04/29/ | Office | Internal Medicine | Abrahan Samaniego MD | | | 2019 | Visit | | [address] [place] [address] | | | | | | [place] | | | | | | [id number] | | | | | | | | +--------+---------+ + + + | 07/25/ | Office | Cardiology | Renetta | | | 2020 | Visit | | [facility] [address] | | | | | | [place], | | | | | | [place] [address] | | | | | | [phone] | | | | | | | | +--------+---------+ + + + | 09/03/ | Office | Endocrinology | Cheryl Zee MD | | | 2020 | Visit | | [address] | | | | | | [address] [place] | | | | | | [address] | | | | | | | | +--------+---------+ + + + documented as of this encounter Visit Diagnoses + + | Diagnosis | + + | Mallet finger, right - Primary | + + documented in this encounter
--- OUTSIDE RECORDS SUMMARY | ~2020-01-04 | XMS | Encounter Summary ---
Demographics + + + | Address | [address] | | | [place] [address] | + + + | Home Phone | | + + + | Preferred Language | Unknown | + + + | Marital Status | | + + + | Congregation Affiliation | 1027 | + + + | Race | Unknown | + + + | Ethnic Group | Unknown | + + + Author + + + | Author | [facility] | | | and [place] | + + + | Organization | [facility] | | [...] [place], | | | | | [place] [address] | | + + + + + | Ryan Vogt | ECON | Unknown | | + + + + + | Rob Vogt | ECON | Unknown | | + + + + + Care Team Providers + +------+ + | Care Rn Quality Name | Role | Phone | + [...] | | | | [place] | [place] [address] | | | | | [place] [address] | | | | | | [phone] | | | +--------+ + + + [...] [place] | | | | | | [address] | | | | | | | | +--------+---------+ + + + | 07/25/ | Office | Cardiology | Renetta, | | | 2020 | Visit | | [address] | | | | | | [place] | | | | | | [place] [address] | | | | | | [phone] | | | | | | | | +--------+---------+ + + + | 09/03/ | Office | Endocrinology | Cheryl Zee MD | | | 2020 | Visit | | [address] | | | | | | [address] [place] | | | | | | [phone] | | | | | | | | +--------+---------+ + + + documented as of this encounter Procedures + +--------+ + + + | Procedure Name | Priori | Date/Time | Associated Diagnosis | Comments | | | ty | | | | + +--------+ + + + | LUIZ DIGITAL | Routin | 10/28/2015 | | Results for this | | SCREENING BILATERAL | e | 12:00 AM | | procedure are in the | | | | PDT | | results section. | + +--------+ + + + documented in this encounter Results LUIZ Digital Screening Bilateral (10/28/2015 12:00 AM PDT) + + | Specimen [...]
--- OUTSIDE RECORDS SUMMARY | ~2020-01-04 | XMS | Encounter Summary ---
Demographics + + + | Address | [address] | | | [place] [address] | + + + | Home Phone | | + + + | Preferred Language | Unknown | + + + | Marital Status | | + + + | Temple Affiliation | 1027 | + + + | Race | Unknown | + + + | Ethnic Group | Unknown | + + + Author + + + | Author | [facility] | | | and [place] | + + + | Organization | [facility] | | | [...] [place], | | | | | [place] [address] | | + + + + + | Ryan Vogt | ECON | Unknown | | + + + + + | Rob Vogt | ECON | Unknown | | + + + + + Care Team Providers + +------+ + | Care Leather Cartridge Belt Maker Name | Role | Phone | + +------+ + | Abrahan Samaniego MD | PCP | | + +------+ + Reason for Visit +--------+--------+ + | Reason | Onset | Comments | | | Date | | +--------+--------+ + | Other | 12/20/ | | | | 2018 | | +--------+--------+ + Encounter Details +--------+ + + + + | Date | Type | Department | Care Team | Description | +--------+ + + + + | 12/20/ | Telephone | [facility] | Cheryl Zee MD | Other | | 2018 | | [facility] [place] | [address] [place] | | | | | ENDOCRINOLOGY [address] | [address] [place] | | | | | [address] [place] [address] | [phone] | | | | | [place] | | | | | | [address] | | | | | | [phone] | | | +--------+ + + + [...] this encounter Miscellaneous Notes Telephone Encounter - Cheryl Zee MD - 12/20/2018 6:59 PM PDTpls let Oliva know I orde red her tests, please take 1-2 weeks before return visit Thanks elephone Oliva Machado, Rough Rice Grader - 12/20/2018 1:41 PM PDTSpoke with patient she puente s been on for about 5 weeks she is okay with changing appointment to have the labs done in t he 2 - 3 month period Patient is rescheduled for 02/27/19 1:10 please enter labs needed.Elec tronically signed by Oliva Son, Rough Rice Grader at 12/20/2018 1:52 PM PDTTelephone E Oliva Barba, Rough Rice Grader - 12/20/2018 1:39 PM PDT----- Message from Gena Zee MD sent at 12/20/2018 12:57 PDT ----- pls call and find out if she started HGH, we need labs 2-3 months on HGH!! I see she is getting cardiac testing, should we move visit with me up 2 months and get labs before visit if she was not long enough on HGH?? Pls ask her, and maybe bring Yaron in her spotbut make sure Oliva gets f/u visit too in 2 months d ocumented in this encounter Plan of Treatment +--------+---------+ + + + | Date | Type | Specialty | Care Team | Description | +--------+---------+ + + + | 04/29/ | Office | Internal Medicine | Abrahan Samaniego MD | | | 2019 | Visit | | [address] | | | | | | [place] | | | | | | [address] | | | | | | | | +--------+---------+ + + + | 07/25/ | Office | Cardiology | Renetta, | | | 2020 | Visit | | [facility] [address] | | | | | | [place] | | | | | | [place] [address] | | | | | | [phone] | | | | | | | | +--------+---------+ + + + | 09/03/ | Office | Endocrinology | Cheryl Zee MD | | | 2020 | Visit | | [address] | | | | | | [address] [place] | | | | | | [phone] | | | | | | | | +--------+---------+ + + + documented as of this encounter Visit Diagnoses Not on filedocumented in this encounter"
--- OUTSIDE RECORDS SUMMARY | ~2020-01-04 | XMS | Encounter Summary ---
Demographics + + + | Address | [address] | | | [place] [address] | + + + | Home Phone | | + + + | Preferred Language | Unknown | + + + | Marital Status | | + + + | Presybeterian Affiliation | 1027 | + + + | Race | Unknown | + + + | Ethnic Group | Unknown | + + + Author + + + | Author | [facility] | [...] [address] | | | | | [address] [place], | | | | | [place] [address] | | + + + + + | Ryan Vogt | ECON | Unknown | | + + + + + | Rob Vogt | ECON | Unknown | | + + + + + Care Team Providers + +------+ + | Care Field Operations Technician Name | Role | Phone | + +------+ + | Abrahan Samaniego MD | PCP | | + +------+ + Reason for Visit +---------+--------+ + | Reason | Onset | Comments | | | Date | | +---------+--------+ + | Results | 05/15/ | | | | 2018 | | +---------+--------+ + Encounter Details +--------+ + + + + | Date | Type | Department | Care Team | Description | +--------+ + + + + | 05/15/ | Telephone | [facility] | Cheryl Zee MD | Results | | 2018 | | [facility] [place] | [address] [place] | | | | | ENDOCRINOLOGY [address] | [address] [place] | | | | | [address] [place] [address] | [phone] | | | | | [place] | | | | | | [address] | | | | | | [phone] | | | +--------+ + + + [...] this encounter Miscellaneous Notes Telephone Encounter - Pennie Harris CMA - 05/15/2019 3:14 PM PSTShe is taking 2, 000 daily as directed. 3:1 4 PM PSTTelephone Encounter - Pennie Harris CMA - 05/15/2019 3:10 PM PST----- Leida angi from Cheryl Zee MD sent at 05/12/2019 7:01 PM PST ----- Can you please check if the patient received my Bikmo message can you check how much janeth min D is she taking? Pls let me know Thanks documented in this encounter Plan of Treatment +--------+---------+ + + + | Date | Type | Specialty | Care Team | Description | +--------+---------+ + + + | 04/29/ | Office | Internal Medicine | Abrahan Samaniego MD | | | 2019 | Visit | | [address] [facility] | | | | | | [place] | | | | | | [address] | | | | | | | | +--------+---------+ + + + | 07/25/ | Office | Cardiology | Renetta, | | | 2020 | Visit | | [facility] [address] | | | | | | [place] | | | | | | [place] [address] | | | | | | [phone] | | | | | | | | +--------+---------+ + + + | 09/03/ | Office | Endocrinology | Cheryl Zee MD | | | 2020 | Visit | | [address] | | | | | | [address] [place] | | | | | | [address] | | | | | | | | +--------+---------+ + + + documented as of this encounter Visit Diagnoses Not on filedocumented in this encounter"
--- OUTSIDE RECORDS SUMMARY | ~2020-01-04 | XMS | Encounter Summary ---
Demographics + + + | Address | [address] | | | [place] [address] | + + + | Home Phone [...] + | Author | [facility] | | | and [place] [...] [place], | | | | | [place] [address] | | + + + + + | Ryan Vogt | ECON | Unknown | | + + + + + | Rob Vogt | ECON | Unknown | | + + + + + Care Team Providers + +------+ + | Care Supervisor Photostat Name | Role | Phone | + [...] + + + | Closed | | | Diagnoses | | | | | | | Special | | | | | | | screening | | | | | | | for | | | | | | | malignant | | | | | | | neoplasms, | | | | | | | colon | | | | | | | Special | | | | | | | screening | | | | | | | for | | | | | | | malignant | | | | | | | neoplasms, | | | | | | | colon | | | | | | | [V76.51] | | | | | | | Procedures | | | | | | | MI | | | | | | | COLONOSCOPY, | | | | | | | DIAGNOSTIC | | | | | | | COLONOSCOPY | | | +--------+--------+ + + + + Encounter Details +--------+ + + + + | Date | Type | Department | Care Team | Description | +--------+ + + + + | 03/12/ | Hospital | [facility] | Shaji Thornton MD | Special screening | | 2014 | Encounter | [facility] | [address], [place] | for malignant | | | | [address] | [address] [place], [place] | neoplasms, colon | | | | [place], [place] | [address] | (Primary Dx) | | | | [address] | | | | | | [phone] | | | +--------+ + + + [...] + + + | Blood Pressure | 147/71 | 03/12/2014 11:30 AM | | | | | PDT | | + + + + + | Pulse | 69 | 03/12/2014 11:30 AM | | | | | PDT | | + + + + + | Temperature | 36.1 C (97 F) | 03/12/2014 7:00 AM | | | | | PDT | | + + + + + | Respiratory Rate | 14 | 03/12/2014 11:30 AM | | | | | PDT | | + + + + + | Oxygen Saturation | 97% | 03/12/2014 11:30 AM | | | | | PDT | | + + + + + | Inhaled Oxygen | - | - | | | Concentration | | | | + + + + + | Weight | 65.8 kg (145 lb) | 03/12/2014 7:00 AM | | | | | PDT | | + + + + + | Height | 160 cm (5' 3") | 03/12/2014 7:00 AM | | | | | PDT | | + + + + + | Body Mass Index | 25.69 | 03/12/2014 7:00 AM | | | | | PDT | | + + + + + documented in this encounter Discharge Instructions Instructions Wilma Troy RN - 03/12/2014Formatting of this note might be diffe rent from the original. Colorectal Cancer Screening Colorectal cancer (cancer in the colon or rectum) is aleading cause of cancer deaths in [facility]. But it doesn t have to be. When this cancer is found and removed early, the chances of a full recovery are very good. Because colorectal cancer rarely causes sympto ms in its early stages, screening for the disease is important. It s even more crucial if you have risk factors for the disease. Learn more about colorectal cancer and its risk facto rs. Then talk to your doctor about being screened. You could be saving your own life. Risk Factors for Colorectal Cancer Your risk of having colorectal cancer increases if you: Are 50 years of age or older. Have a family history or personal history of colorectal cancer or adenomatous polyps. Have a personal history of colorectal polyps, Crohn s disease, or ulcerative colitis. Have a family history of multiple concurrent solid-tumor cancers. Colorectal polyps The Colon and Rectum A IVONNE can detect a growth in the rectum or anus. Waste from food you eat enters the colon from the small intestine. As it travels through th e colon, the waste (stool) loses water and becomes more solid. Intestinal muscles push it to luque the sigmoid the last section of the colon. Stool then moves into the rectum, where it s stored until it s ready to leave the body during a bowel movement. How Cancer Develops Polyps are growths that form on the lining of the colon or rectum. Most are benign, which m eans they aren t cancerous. But over time, polyps can become malignant (cancerous). This o ccurs when cells in these polyps begin growing abnormally. In time, malignant cells invade m ore and more of the colon and rectum. The cancer may also spread to nearby organs or lymph n odes or to other parts of the body. Finding and removing polyps can help prevent cancer from ever forming. Your Screening Screening means looking for a medical problem before you have symptoms. During screening fo r colorectal cancer, your doctor will ask about your medical history, examine you, and do on e or more tests. History and Exam Medical History: Your doctor will ask about your medical history. Mention if a family me mber has had colon cancer or polyps. Also mention any health problems you have had in the pa st. Digital Rectal Exam (IVONNE): During a IVONNE, the doctor inserts a lubricated gloved finger i nto the rectum. The test is painless and takes less than a minute. Possible Tests Fecal Occult Blood Test:This test checks for occult blood in stool (blood you can t see). Hidden blood may be a sign of colon polyps or cancer. A small sample of stool is teste d for blood in a laboratory. Most often, you collect this sample at home using a kit your do ctor gives you. Follow the instructions carefully for using this kit. Avoid certain foods an d medications before the test, as directed. Barium Enema with Contrast:This test uses x-rays to provide images of the entire colon and rectum. Bowel prep is also needed the day before this test. You will be awake for the t est, but you may be given medication to help you relax. At the start of the test, a radiolog ist (a doctor who specializes in imaging tests) inserts a soft tube into the rectum. The tub e is used to fill the colon with a contrast liquid (barium). The liquid helps the colon show up clearly on the x-rays. Virtual colonoscopy: This exam uses a series of x-ray photographs to create a three-dime nsional view of the colon. During the procedure, you will lie on a table that is part of a s pecial x-ray machine called an MRI machine. A small tube will be inserted into your rectum. Then, the table will move into the machine and photos will be taken of your colon. A compute r will combine these photos to create a three-dimensional picture. Scope Exams Colonoscopy:This is the best test doctors have for finding and removing colorectal kenan yps. The day before the test, you will do a bowel prep to cleanse your colon. You will be gi maribel instructions for this. Just before the test, you are given a medication to make you slee py. Then, a long, flexible, lighted tube called a colonoscope is gently inserted into the re ctum and guided through the entire colon. Images of the colon are viewed on a video screen. Any polyps that are found are removed and sent to a lab for testing. If a polyp can t be r emoved, a sample of tissue is taken and the polyp is removed later during surgery. Sigmoidoscopy:This test is similar to colonoscopy, but focuses only on the sigmoid col on and rectum. As with colonoscopy, bowel prep must be done the day before this test. You ar e awake during the procedure, but you may be given medication to help you relax. During the test, the doctor guides a thin, flexible, lighted tube called a sigmoidoscope through your r ectum and lower colon. The images are displayed on a video screen. Polyps are removed, if po ssible, and sent to a lab for testing. Risk and Complications of Scope Exams Bleeding A puncture or tear in the colon Risks of anesthesia Failure to detect a polyp When to Call Your Doctor After a Test Call your doctor if you have any of the following after any screening test: Bleeding Fever over 101F Abdominal pain [id number] [address]. All rights reserve d. This information is not intended as a substitute for professional medical care. Always fo llow your healthcare professional's instructions. documented in this encounter Medications at Time [...] + documented as of this encounter H&P Shaji Dick MD - 03/09/2014 10:28 AM PDT ENDOSCOPY PRESEDATION ASSESSMENT PATIENT NAME: Oliva Vogt : 1950 TODAY'S DATE: 03/12/2014 PLANNED PROCEDURE: colonoscopy PERTINENT HISTORY/INDICATION FOR PROCEDURE: Oliva Vogt is a 64 y.o. female who r equires colonoscopy for colon cancer screening. Last colonoscopy in 2006 was normal. 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 Other activity(E029.9) . EGD in 2006.Antral erosions, H pylori positive. H/O eclampsia History of eclampsia 1971 with DIC, acute renal failure Other activity(E029.9) History of blood transfusions Tinnitus Low back pain Other activity(E029.9) Right fifth finger Dupuytren's without contractures. Adrenal insufficiency (HCC) 05/16/2012 Scheduled Meds: Continuous Infusions: lactated ringers 100 mL/hr at 03/12/14 0749 PRN Meds:. ASA CLASSIFICATION: 2 EXAMINATION: BP 133/78 | Pulse 69 | Temp 36.1 C (97 F) (Temporal) | Resp 18 | Ht 1.6 m (5' 3") | Wt 65.772 kg (145 lb) | BMI 25.69 kg/m2 | SpO2 98% General: Alert and orientedx3 Throat: Normal Lungs: Clear Heart: Regular rate and rhythm with out significant murmur Abdomen: flat, normal bowel sounds. Soft, nontender ALLERGIES Allergies Allergen Reactions Succinylcholine Chloride Other (See Comments) Hard to wake up 1. Available medical records have been reviewed. 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 Jessika chau medicine note dated 2013 is reviewed as his prior procedures in 2006 2. Medication list reviewed. IMPRESSION: Patient appropriate for procedure. Colon cancer screening PLAN: 1. Proceed with procedure as stated above with moderate sedation/analgesia. Patient will b e given IV steroids prior to the procedure for her adrenal insufficiency 2. Patient will be reevaluated immediately (1-2 minutes) before sedation administration and approved for the plan as stated above. Electronically Signed by: Shaji Thornton MD 03/12/2014 [facility] Portions of this chart may have been created with [employer] voice recognition software. Occasi onal wrong-word or sound-alike substitutions may have occurred due to the inherent lópez itations of voice recognition software. Please read the chart carefully and recognize, using context, where these substitutions have occurred She was seen and examined on the day of the procedure. Patient's questions were answered consent form is signed steroids given. Will proceed with colonoscopy for colon cancer mani ning documented in this encounter Procedure Notes [facility] - 03/12/2014 12:00 AM PDTAssociated Order(s): COLONOSCOPYElectronically si gned by Toro Morris at 03/12/2014 8:37 AM PDTdocumented in this encounter Miscellaneous Notes Plan of Care - [facility] - 03/14/2014 12:00 AM PDT lan of Care - [facility] - 03/14/2014 12:00 AM PDTElect ronically signed by Toro Morris at 03/14/2014 5:00 PM PDTPlan of Care - [facility] - 03/14/2014 12:00 AM PDT isc ellaneous - [facility] - 03/14/2014 12:00 AM PDT documented in this encounter [...] [place] | | | | | | [address] | | | | | | | | +--------+---------+ + + + | 07/25/ | Office | Cardiology | Renetta, | | | 2020 | Visit | | PARKER Harris [address] | | | | | | [place] | | | | | | [place] [address] | | | | | | [phone] | | | | | | | | +--------+---------+ + + + | 09/03/ | Office | Endocrinology | Cheryl Zee MD | | | 2020 | Visit | | [address] [place] | | | | | | [address] [place] | | | | | | [id number] | | | | | | | | +--------+---------+ + + + documented as of this encounter Procedures + +--------+ + + + | Procedure Name | Priori | Date/Time | Associated Diagnosis | Comments | | | ty | | | | + +--------+ + + + | COLONOSCOPY | | 03/12/2014 | Special screening | | | | | 8:02 AM | for malignant | | | | | PDT | neoplasms, colon | | + +--------+ + + + | COLONOSCOPY | Routin | 03/12/2014 | | Results for this | | | e | 7:45 AM | | procedure are in the | | | | PDT | | results section. | + +--------+ + + + documented in this encounter Results COLONOSCOPY (03/12/2014 7:45 AM PDT) + + | Specimen | + + | | + + + + -+ | Narrative | Performed At | + + -+ | | [facility] | | GastroenterologyPatient Name: Oliva VogtProcedure Date: 03/12/2014 | [facility] | | 7:45 AMMRN: [id number] #: [id number] of : | | | 1950Admit Type: OutpatientAge: 64Room: Endo Room 1Gender: | | | FemaleNote Status: FinalizedAttending MD: Shaji Thornton, MDProcedure: | | | ColonoscopyIndications: Screening for colorectal | | | malignant neoplasmProviders: Shaji Thornton MD, | | | Armando Tobias RN, Bee Mast | | | SUNDEEP Edmond, ANN BATEMAN, TechnicianReferring MD: Abrahan Verma | | | MD Aden (Referring MD)Medicines: Midazolam 3 mg IV, | | | Meperidine 100 mg IV, Oxygen 4 liters/min | | | nasocannulaComplications: No immediate complications. Estimated | | | blood loss: None.Procedure: Pre-Anesthesia Assessment: - | | | Prior to the procedure, a History and Physical was performed, and | | | patient medications, allergies and sensitivities were reviewed. The | | | patient's tolerance of previous anesthesia was reviewed. | | | - Prior to the procedure, a History and Physical was performed, and | | | patient medications and allergies were reviewed. The patient is | | | competent. The risks and benefits of the procedure and the | | | sedation options and risks were discussed with the patient. All | | | questions were answered and informed consent was obtained. | | | Patient identification and proposed procedure were verified by | | | the physician, the nurse and the drinking water technician in the endoscopy | | | suite. Mental Status Examination: normal. Airway Examination: | | | normal oropharyngeal airway and neck mobility and Mallampati | | | Class II (the uvula but not tonsillar pillars visualized). | | | Respiratory Examination: clear to auscultation. CV Examination: | | | normal. Prophylactic Antibiotics: The patient does not require | | | prophylactic antibiotics. Prior Anticoagulants: The patient has | | | taken no previous anticoagulant or antiplatelet agents. ASA | | | Grade Assessment: III - A patient with severe systemic disease. | | | After reviewing the risks and benefits, the patient was deemed | | | in satisfactory condition to undergo the procedure. The | | | anesthesia plan was to use moderate sedation / analgesia | | | (conscious sedation). Immediately prior to administration of | | | medications, the patient was re-assessed for adequacy to receive | | | sedatives. The heart rate, respiratory rate, oxygen saturations, | | | blood pressure, adequacy of pulmonary ventilation, and response | | | to care were monitored throughout the procedure. The physical | | | status of the patient was re-assessed after the procedure. | | | - After reviewing the risks and benefits, the patient was deemed in | | | satisfactory condition to undergo the procedure. - | | | Immediately prior to administration of medications, the patient was | | | re-assessed for adequacy to receive sedatives. - The heart | | | rate, respiratory rate, oxygen saturations, blood pressure, | | | adequacy of pulmonary ventilation, and response to care were monitored | | | throughout the procedure. - The physical status of the | | | patient was re-assessed after the procedure. After I obtained | | | informed consent, the scope was passed under direct vision. | | | Throughout the procedure, the patient's blood pressure, pulse, | | | and oxygen saturations were monitored continuously. The endoscope was | | | introduced through the anus and advanced to the cecum, | | | identified by the appendiceal orifice, ileocecal valve and | | | palpation. The colonoscopy was performed without difficulty. | | | The patient tolerated the procedure well. The quality of the | | | bowel preparation was excellent.Findings: The perianal and | | | digital rectal examinations were normal. Pertinent negatives | | | include normal sphincter tone and no palpable rectal lesions. | | | The sigmoid colon, descending colon and hepatic flexure were | | | moderately tortuous. The transverse colon was mildly | | | redundant. The exam was otherwise without abnormality. The | | | retroflexed view of the distal rectum and anal verge was normal and | | | showed no anal or rectal abnormalities.Impression: - | | | Tortuous colon. - Redundant colon. - The examination was | | | otherwise normal. - The distal rectum and anal verge are normal | | | on retroflexion view.Recommendation: - Discharge patient to home | | | (ambulatory). - Return to previous diet today. - Continue | | | present medications. - Repeat colonoscopy in 10 years for | | | screening purposes. - Return to primary care physician as | | | previously scheduled. - Telephone GI clinic if symptomatic.Shaji | | | Rhiannon Thornton MD03/12/2014 8:32 AMThis report has been signed | | | electronically.Number of Addenda: 0Note Initiated On: 03/12/2014 7:45 | | | AM [facility], [address] [facility] | | | [place] [address] | | | - The examination was otherwise normal. | | | - The distal rectum and anal verge are normal on retroflexion view. | | |Recommendation: | | | - Discharge patient to home (ambulatory). | | | - Return to previous diet today. | | | - Continue present medications. | | | - Repeat colonoscopy in 10 years for screening purposes. | | | - Return to primary care physician as previously scheduled. | | | - Telephone GI clinic if symptomatic. | | |Shaji Thornton MD | | |03/12/2014 8:32 AM | | |This report has been signed electronically. | | |Number of Addenda: 0 | | |Note Initiated On: 03/12/2014 7:45 AM | | | [facility], [address] [facility], [place], [place] | | | [address] | | + + -+ + + | Transcriptions | + + | Toro Morris - 03/12/2014 12:00 AM PDT | + + + +---------+ + + | Performing | Address | City/State/Zipcode | Phone Number | | Organization | | | | + +---------+ + + | [facility] [employer] | | | | + +---------+ + + documented in this encounter Visit Diagnoses + + | Diagnosis | + + | Special screening for malignant neoplasms, colon - Primary | + + documented in this encounter Administered Medications + +---------+ +------+-------+------+ | Medication Order | MAR | Action | Dose | Rate | Site | | | Action | Date | | | | + +---------+ +------+-------+------+ | lactated ringers (LR) infusion | New Bag | 03/12/20 | | 100 | | | at 100 mL/hr, Intravenous, | | 14 10:25 | | mL/hr | | | CONTINUOUS, Starting 03/12/14 | | AM PDT | | | | | at 0800, Pre-op | | | | | | + +---------+ +------+-------+------+ +---------+ +---+-------+---+ | New Bag | 03/12/20 | | 100 | | | | 14 7:49 | | mL/hr | | | | AM PDT | | | | +---------+ +---+-------+---+ +---+---+ | | | +---+---+ + +-------+ +--------+---+---+ | meperidine (DEMEROL) 100 mg/mL | Given | 03/12/20 | 100 mg | | | | injection PRN, Pain, Starting | | 14 8:10 | | | | | 03/12/14 at 0810 | | AM PDT | | | | + +-------+ +--------+---+---+ +---+---+ | | | +---+---+ + +-------+ +-------+---+ + | methylPREDNISolone acetate | Given | 03/12/20 | 40 mg | | Other | | (DEPO-MEDROL) 40 mg/mL injection | | 14 8:09 | | | (Comment | | PRN, Starting 03/12/14 at | | AM PDT | | | ) | | 0809, Intra-op | | | | | | + +-------+ +-------+---+ + +---+---+ | | | +---+---+ + +-------+ +------+---+---+ | midazolam (VERSED) 5 mg/mL | Given | 03/12/20 | 2 mg | | | | injection PRN, Anxiety, Starting | | 14 8:15 | | | | | 03/12/14 at 0812 | | AM PDT | | | | + +-------+ +------+---+---+ +-------+ +------+---+---+ | Given | 03/12/20 | 1 mg | | | | | 14 8:12 | | | | | | AM PDT | | | | +-------+ +------+---+---+ +---+---+ | | | +---+---+ + +-------+ +------+---+---+ | ondansetron (ZOFRAN) injection | Given | 03/12/20 | 4 mg | | | | 4 mg 4 mg, Intravenous, EVERY 4 | | 14 9:08 | | | | | HOURS PRN, Nausea, Vomiting, | | AM PDT | | | | | Starting 03/12/14 at 0840, | | | | | | | Recovery/Phase I | | | | | | + +-------+ +------+---+---+ +---+---+ | | | +---+---+ documented in this encounter
--- OUTSIDE RECORDS SUMMARY | ~2020-01-04 | XMS | Encounter Summary ---
Demographics + + + | Address | [address] | | | [place] [address] | + + + | Home Phone | | + + + | Preferred Language | Unknown | + + + | Marital Status | | + + + | Yazdanism Affiliation | 1027 | + + + | Race | Unknown | + + + | Ethnic Group | Unknown | + + + Author + + + | Author | [facility] | | | and [place] | + + + | Organization | [facility] | | | and [...] [place], | | | | | [place] [address] | | + + + + + | Ryan Vogt | ECON | Unknown | | + + + + + | Rob Vogt | ECON | Unknown | | + + + + + Care Team Providers + +------+ + | Care Administration Specialist Name | Role | Phone | + +------+ + | Abrahan Samaniego MD | PCP | | + +------+ + Encounter Details +--------+ + + + + | Date | Type | Department | Care Team | Description | +--------+ + + + + | 02/12/ | Hospital | [facility] | Abrahan Samaniego MD | Hypothyroidism, | | 2016 | Encounter | MED CTR LABORATORY | [address] [facility] | unspecified type | | | | [address] [place] | [place], [place] | (Primary Dx); | | | | [place], [place] | [address] | [place]; | | | | [address] | | Adrenal | | | | [phone] | | insufficiency (HCC) | +--------+ + + + + [...] | 2020 | Visit | | [address] [facility] | | | | | | [place] | | | | | | [address] | | | | | | | | +--------+---------+ + + + | 07/25/ | Office | Cardiology | Renetta, | | | 2020 | Visit | | PARKER Harris [address] | | | | | | [address] [place], | | | | | | [place] [address] | | | | | | [phone] | | | | | | | | +--------+---------+ + + + | 09/03/ | Office | Endocrinology | Cheryl Zee MD | | | 2020 | Visit | | [address] [place] [address] | | | | | | [address] [place] | | | | | | [id number] | | | | | | | | +--------+---------+ + + + documented as of this encounter Procedures + +--------+ + + + | Procedure Name | Priori | Date/Time | Associated Diagnosis | Comments | | | ty | | | | + +--------+ + + + | VITAMIN B-12 | Routin | 02/13/2016 | [place] | Results for this | | | e | 11:29 AM | Adrenal | procedure are in the | | | | PDT | insufficiency (HCC) | results section. | + +--------+ + + + | VITAMIN D, | Routin | 02/13/2016 | [place] | Results for this | | DEFICIENCY SCREEN | e | 11:29 AM | Adrenal | procedure are in the | | (25-HYDROXY) | | PDT | insufficiency (HCC) | results section. | + +--------+ + + + | T4, FREE | Routin | 02/13/2016 | Hypothyroidism, | Results for this | | | e | 11:29 AM | unspecified type | procedure are in the | | | | PDT | | results section. | + +--------+ + + + | FOLATE | Routin | 02/13/2016 | [place] | Results for this | | | e | 11:29 AM | Adrenal | procedure are in the | | | | PDT | insufficiency (HCC) | results section. | + +--------+ + + + | COMPREHENSIVE | Routin | 02/13/2016 | [place] | Results for this | | METABOLIC PANEL | e | 11:29 AM | Adrenal | procedure are in the | | | | PDT | insufficiency (HCC) | results section. | + +--------+ + [...] [address] | [place] | [phone] | | [facility] | | [address] | | | - LABORATORY | | [...] + | [address] | [address] | [place] | [phone] | | [facility] | | [address] | | | - LABORATORY | | [...] | | B-12 | <145 | | [address] | | | | pg/mLINDETERMINATE: | [...] [address] | [place] | [phone] | | [facility] | | [address] | | | - LABORATORY | | [...] | | | | | mg/dL | [facility] | | | | | | MEDICAL | | | | | | CENTER - | | | | | | LABORATORY | | + + + + + + | eGFR, | 55 (L)Comment: | >=60 | [facility] | | | non- | GLOMERULAR FILTRATION | mL/min/1.73m2 | [facility] | | | Portuguese | RATE,ESTIMATED | | MEDICAL | | | | mL/min/1.15m7Ucul than | | CENTER - | | [...] | 9.5 | 8.3 - 10.5 | [facility] | | | | | mg/dL | [facility] | | | | | | MEDICAL [...] + | [facility] | [address] | [place] | [phone] | | [facility] | | [address] | | | - LABORATORY | | | | + + + + + T4, Free (02/13/2016 11:29 AM PDT) + +-------+ + + + | Component | Value | Ref Range | Performed | Pathologist | | | | | At | Signature | + +-------+ + + + | FT4 | 0.9 | 0.6 - 1.1 ng/dL | [facility] | | | | | | [address] [...] [address] | [place] | [phone] | | 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
--- OUTSIDE RECORDS SUMMARY | ~2020-01-04 | XMS | Encounter Summary ---
Demographics + + + | Address | [address] | | | [place] [address] | + + + | Home Phone | | + + + | Preferred Language | Unknown | + + + | Marital Status | | + + + | Mandaen Affiliation | 1027 | + + + | Race | Unknown | + + + | Ethnic Group | Unknown | + + + Author + + + | Author | [facility] | | | and [place] | + [...] [place], | | | | | [place] [address] | | + + + + + | Ryan Vogt | ECON | Unknown | | + + + + + | Rob Vogt | ECON | Unknown | | + + + + + Care Team Providers + +------+ + | Care Clay Machine Operator Name | Role | Phone [...] Rehabilitatio | 7[address] | [address] | [place] | | | | n | (ICD-9-CM) - | [address]RE[address] | [place], | | | | | Cervicalgia | [place], | [place] [address] | | | | | Procedures | [place] [address] | Phone: | | | | | pt pako | Phone: | [phone] | | | | | | [phone] | Fax: | | | | | | Fax: | [phone] | | | | | | [phone] | | +--------+ + + + + + Encounter Details +--------+---------+ + + + | Date | Type | Department | Care Team | Description | +--------+---------+ + + + | 09/14/ | Office | [facility] | Abrahan Samaniego MD | Cervicalgia (Primary | | 2015 | Visit | MED CTR THERAPY PT | [facility] | Dx); Impaired | | | | OP [address] | [place] | mobility | | | | [place] | [address] | | | | | [address] | | | | | | [phone] | Barb Bergman, | | | | | | [id number] ARMOR CREWMAN [address] | | | | | | [place] [...] documented as of this encounter Progress Notes Barb Bergman, M60A2 ARMOR CREWMAN - 09/14/2014 8:10 AM PDTFormatting of this note might be different f rom the original. [facility] CTR THERAPY PT OP [address] [place] [address] Physical Therapy Daily Treatment Note Date: 09/14/2014 Patient Information Patient Name: Oliva Vogt Date of : 1950 Age: 64 y.o. Encounter Diagnoses Code Name Primary? 723.1 Cervicalgia Yes 799.89 Impaired mobility Date of Onset: 05/07/14 Referring Provider: Abrahan Samaniego MD Rehab Precautions Office Visit from 07/16/2014 in [facility] CTR THERAPY PT OP Rehab Precautions Precautions None Start Time: 0700 Stop time: 0745 Duration: 45 minutes Timed Treatment Codes: 45 minutes # of PT Visits to Date: 6 Subjective: Pt reports she has had some high blood preasure episodes lately, went to the ER. Her neck i s feeling better verall, some pain still on the right side. Is doing most of her ex. Pain Assessment Pain Scale Used: NUMERIC Pain Rating Pre Assessment: 1 Location: right side of neck Objective: Education: extensive review of HEP, ergonomic set up of computer as well as increasing the font size, tracking blood presure, stress reduction Manual Treatment: STM to right upper trap, neck, manual cervical traction, occiptial releas e scap retraction, shoulder rolls, cervical retraction, cervical AROM Prone T,I Assessment: Pt was performing the cervical ROM with shoulders fwd and up. Had not been doing the prone ex due to stressful homelife-tends to do her ex at work. Was receptive to self care info. Plan: Scheduled for one more session to review HEP. Electronically signed by: Barb Bergman PTA, 09/14/2014 8:11 Patient Name: Oliva Vogt/: 1950/ documented in this encounter Plan of Treatment +--------+---------+ + + + | Date | Type | Specialty | Care Team | Description | +--------+---------+ + + + | 04/29/ | Office | Internal Medicine | Abrahan Samaniego MD | | | 2019 | Visit | | [address] [place] [address] | | | | | | [place] | | | | | | [id number] | | | | | | | | +--------+---------+ + + + | 07/25/ | Office | Cardiology | Renetta, | | | 2020 | Visit | | PARKER Harris [address] | | | | | | [place] | | | | | | [place] [address] | | | | | | [phone] | | | | | | | | +--------+---------+ + + + | 09/03/ | Office | Endocrinology | Cheryl Zee MD | | | 2020 | Visit | | [address] | | | | | | [address] [place] | | | | | | [address] | | | | | | | | +--------+---------+ + + + documented as of this encounter Visit Diagnoses + + | Diagnosis | + + | Cervicalgia - Primary | + + | Impaired mobility Other ill-defined conditions | + + documented in this encounter"
--- OUTSIDE RECORDS SUMMARY | ~2020-01-04 | XMS | Encounter Summary ---
Demographics + + + | Address | [address] | | | [place] [address] | + + + | Home Phone [...] Author | [facility] | | | and [place] [...] [place], | | | | | [place] [address] | | + + + + + | Ryan Vogt | ECON | Unknown | | + + + + + | Rob Vogt | ECON | Unknown | | + + + + + Care Team Providers + +------+ + | Care Laborer Hoisting Name | Role | Phone | + +------+ + | Abrahan Samaniego MD | PCP | | + +------+ + Reason for Visit + + + | Reason | Comments | + + + | Annual Exam | | + + + Encounter Details +--------+---------+ + + + | Date | Type | Department | Care Team | Description | +--------+---------+ + + + | 03/07/ | Office | [facility] | Abrahan Samaniego MD | Preventative health | | 2018 | Visit | MEDICINE [address] [place] [address] | [address] [place] [address] | care (Primary Dx) | | | | [place], | [place] | | | | | [place] [address] | [id number] | | | | | [phone] | | | +--------+---------+ + + + [...] + + + | Blood Pressure | 132/80 | 03/07/2018 10:56 AM | | | | | PDT | | + + + + + | Pulse | 80 | 03/07/2018 10:56 AM | | | | | PDT | | + + + + + | Temperature | 36.4 C (97.5 F) | 03/07/2018 10:56 AM | | | | | PDT | | + + + + + | Respiratory Rate | 16 | 03/07/2018 10:56 AM | | | | | PDT | | + + + + + | Oxygen Saturation | 95% | 03/07/2018 10:56 AM | | | | | PDT | | + + + + + | Inhaled Oxygen | - | - | | | Concentration | | | | + + + + + | Weight | 68.4 kg (150 lb 12.7 | 03/07/2018 10:56 AM | | | | oz) | PDT | | + + + + + | Height | - | - | | + + + + + | Body Mass Index | 26.71 | 10/06/2017 2:34 PM | | | | | PDT | | + + + + + documented in this encounter Patient Instructions Patient Instructions Abrahan Samaniego MD - 03/07/2018 11:15 AM PDTThere is a new shingles va ccine called Shingrix. It is recommended for everyone over the age of 50 even if they have had the previous shingles vaccine. Check with your pharmacy for availability. There are simple things that you can do to decrease your risk of falling and chances of ge tting injured when you fall. 1. Calcium supplement with Vitamin D . Your goal should be to get Calcium 1200 mg per day a nd Vit D3 1000 international Units. 2. Make sure that you have had a recent eye test and that your vision is ok. 3. Exercise: particularly Walt Chi. You can find various classes around town. Alternatively, you can ask for a prescription for physical therapy. 4. Use night lights in your home 5. follow up manager all throw rugs and secure power cords so that you will not trip on them. Artur Vogt is a great eye doctor [phone] signed by Abrahan Samaniego MD at 11:46 AM PDT documented in this encounter Progress Notes Abrahan Samaniego MD - 03/07/2018 11:15 AM PDT Subjective: Patient ID: Oliva Vogt is a 68 y.o. female. WELLNESS EXAM: She is doing well. She is very busy with her who is chronically ill. She is still working and likes her job. She thinks that she will bored if she quits too so on. It also helps with her mental health to work and get the time away from home. She is g oing to sabianist every week. 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 She has a new trigger finger in right middle and 4th fingers. She is not interested in any treatment. 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 Unknown Impaired mobility 07/16/2014 Unknown Secondary adrenal insufficiency 05/16/2012 Unknown HIP PAIN Unknown Secondary hypothyroidism Unknown Hyperlipidemia Unknown Growth hormone deficiency Unknown Chronic kidney disease (CKD) Unknown DUPUYTREN'S CONTRACTURE 12/15/2011 Unknown OSTEOARTHRITIS, KNEE 12/15/2011 Unknown OTHER DISEASES OF NASAL CAVITY AND SINUSES 09/23/2011 Unknown Frontal skull lesion 09/10/2011 Unknown OTHER AND UNSPECIFIED HYPERLIPIDEMIA 11/24/2010 Unknown Past Surgical History: Procedure Laterality Date CHOLECYSTECTOMY COLONOSCOPY 03/12/2014 COLONOSCOPY; Laterality: N/A; Surgeon: Shaji Thornton MD; Location: [facility] MEDICAL PROCEDU RE UNIT CYST REMOVAL Left 1970 ENDOMETRIAL BIOPSY 2007 Benign Skull Biopsy 09/28/2011 (Benign) TUBAL LIGATION Bilateral Family History Problem Relation Age of Onset High blood pressure Mother 84 of Aortic dissection Other (see comment) Father 74 of hemorrgagic CVA Stroke Father Arthritis Father Lung cancer Maternal Grandfather Abdominal Aortic Aneurysm Brother Lung cancer Sister Social History Social History Marital status: Spouse name: N/A Number of children: N/A Years of education: N/A Social History Main Topics Smoking status: Never Smoker Smokeless tobacco: Never Used Alcohol use No Drug use: No Sexual activity: No Other Topics Concern None Social History Narrative . 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 She works at the [employer]. She doesn't exerc ise because she is so busy with her grands and her son has also been ill and was having to l tameka with her until just recently. They have a mobile home park which they are selling. 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 Current Outpatient Prescriptions on File Prior to Visit Medication Sig Dispense Refill atorvaSTATin (LIPITOR) 10 mg tablet take 1 tablet by mouth AT NIGHT (Patient taking dif ferently: take 1 tablet by mouth at night) 90 tablet 2 Whtuiwi-Yhqrqonor-Gfoiwun D (CALCIUM MAGNESIUM PO) Take by mouth. cholecalciferol (VITAMIN D-3) 1,000 units tablet Take 2 tablets by mouth Daily. (Patien t taking differently: Take 1,000 Units by mouth Daily.) levothyroxine (SYNTHROID) 100 mcg tablet Take 1 tablet by mouth every morning (before b reakfast). 90 tablet 4 potassium chloride (KLOR-CON) 10 mEq CR tablet Take 1 tablet by mouth Daily. 90 tablet 3 predniSONE (DELTASONE) 5 mg tablet One daily most days, increase to 3 tabs daily for 3 days when sick 120 tablet 4 No current facility-administered medications on file prior to visit. Allergies Allergen Reactions Succinylcholine Chloride Other (See Comments) Hard to wake up ROS See intake form which is reviewed by MD and scanned to EMR Objective:BP 132/80 | Pulse 80 | Temp 36.4 C (97.5 F) (Temporal) | Resp 16 | Wt 68. 4 kg (150 lb 12.7 oz) | SpO2 95% | BMI 26.71 kg/m Physical Exam BP 132/80 | Pulse 80 | Temp 36.4 C (97.5 F) (Temporal) | Resp 16 | Wt 68.4 kg (150 lb 12.7 oz) | SpO2 95% | BMI 26.71 kg/m General Appearance: Alert, cooperative, no distress, appears stated age. Cushingoid Head: Normocephalic, without obvious abnormality, atraumatic Eyes: PERRL, conjunctiva/corneas clear, EOM's intact Ears: Normal TM's and external ear canals, both ears Nose: Nares normal, septum midline, mucosa normal, no drainage or sinus tenderness Throat: Lips, mucosa, and tongue normal; teeth and gums normal Neck: Supple, symmetrical, trachea midline, no adenopathy; thyroid: no enlargement/tenderness/nodules; no carotid bruit or JVD Back: Symmetric, no curvature, ROM normal, no CVA tenderness Lungs: Clear to auscultation bilaterally, respirations unlabored Chest Wall: No tenderness or deformity Heart: Regular rate and rhythm, S1 and S2 normal, no murmur, rub or gallop Breast Exam: Not done Abdomen: Soft, non-tender, bowel sounds active all four quadrants, no masses, no organomegaly Genitalia: Recently completed in Computer Consultant Rectal: Not done Extremities: Extremities normal, atraumatic, no cyanosis or edema Pulses: 2+ and symmetric all extremities Skin: Skin color, texture, turgor normal, no rashes or lesions Lymph nodes: Cervical, supraclavicular, and axillary nodes normal Neurologic: CNII-XII intact, normal strength, sensation and reflexes Throughout. Registers and recalls 3/3 Assessment/Plan: 1. Preventative health care ANNUAL WELLNESS EXAM Medical and Family History Updated. Examination Performed. Current Providers:See CARE TEAM in EMR Detection of Cognitive Impairment:no 5-10 Year Screening Schedule: Age appropriate cancer screening up to date or being brought up to date today Age appropriate immunizations up to date, being brought up to date today, or given handout s on immunizations to get at facility of choice List of Risk Factors: adrenal insuff Personalized Health Advice Including Weight Loss, Physical Activity, Fall Prevention and Nu trition Discussed. Given 5-10 year written schedule on Cancer Screening documented in this enc ounter Plan of Treatment +--------+---------+ + + + | Date | Type | Specialty | Care Team | Description | +--------+---------+ + + + | 04/29/ | Office | Internal Medicine | Abrahan Samaniego MD | | | 2019 | Visit | | [address] | | | | | | [place] | | | | | | [address] | | | | | | | | +--------+---------+ + + + | 07/25/ | Office | Cardiology | Renetta, | | | 2020 | Visit | | P[facility] Harris [address] | | | | | | [place], | | | | | | [place] [address] | | | | | | [phone] | | | | | | | | +--------+---------+ + + + | 09/03/ | Office | Endocrinology | Cheryl Zee MD | | | 2020 | Visit | | [address] | | | | | | [address] [place] | | | | | | [phone] | | | | | | | | +--------+---------+ + + + documented as of this encounter Procedures + +--------+ + + + | Procedure Name | Priori | Date/Time | Associated Diagnosis | Comments | | | ty | | | | + +--------+ + + + | PATHOLOGY - EXTERNAL | | 10/28/2015 | | Results for this | | SCAN | | 12:00 AM | | procedure are in the | | | | PDT | | results section. | + +--------+ + + + documented in this encounter Results PATHOLOGY - EXTERNAL SCAN (10/28/2015 12:00 AM PDT) + + + | Narrative | Performed At | + + + | Ordered by an | | | unspecified provider. | | + + + documented in this encounter Visit Diagnoses + + | Diagnosis | + + | Preventative health care - Primary Routine general medical examination at a [facility] | | care facility | + + documented in this encounter"
--- OUTSIDE RECORDS SUMMARY | ~2020-01-04 | XMS | Encounter Summary ---
Demographics + + + | Address | [address] | | | [place] [address] | + + + | Home Phone [...] | [facility] [...] [place], | | | | | [place] [address] | | + + + + + | Ryan Vogt | ECON | Unknown | | + + + + + | Rob Vogt | ECON | Unknown | | + + + + + Care Team Providers + +------+ + | Care Mailing Manager Name | Role | Phone | + +------+ + | Abrahan Samaniego MD | PCP | | + +------+ + Encounter Details +--------+ + + + + | Date | Type | Department | Care Team | Description | +--------+ + + + + | 07/31/ | Orders Only | [facility] | Fannie Lew | | | 2016 | | MEDICINE [address] | [place] | | | | | [place], | | | | | | [place] [address] | | | | | | [phone] | | | +--------+ + + + [...] + documented as of this encounter Progress Fannie Rowley RN - 07/31/2016 4:47 PM PSTOpened in error. documented in this encounter Plan of Treatment [...] | | | | | | [place] [address] | | | | | | [phone] | | | | | | | | +--------+---------+ + + + | 09/03/ | Office | Endocrinology | Cheryl Zee MD | | | 2020 | Visit | | [address] | | | | | | [address] [place] | | | | | | [phone] | | | | | | | | +--------+---------+ + + + documented as of this encounter Visit Diagnoses Not on filedocumented in this encounter"
--- OUTSIDE RECORDS SUMMARY | ~2020-01-04 | XMS | Encounter Summary ---
Demographics + + + | Address | [address] | | | [place] [address] | + + + | Home Phone | | + + + | Preferred Language | Unknown | + + + | Marital Status | | + + + | Episcopal Affiliation | 1027 | + + + | Race | Unknown | + + + | Ethnic Group | Unknown | + + + Author + + + | Author | [facility] | | | and [place] | + + + | Organization | [facility] | | | [...] [place], | | | | | [place] [address] | | + + + + + | Ryan Vogt | ECON | Unknown | | + + + + + | Rob Vogt | ECON | Unknown | | + + + + + Care Team Providers + +------+ + | Care Psychiatry Resident Name | Role | Phone | + +------+ + | Abrahan Samaniego MD | PCP | | + +------+ + Reason for Visit + + + | Reason | Comments | + + + | Immunizations | flu shot | + + + Encounter Details +--------+ + + + + | Date | Type | Department | Care Team | Description | +--------+ + + + + | 02/21/ | Clinical | [facility] | Abrahan Samaniego MD | Need for influenza | | 2018 | Support | MEDICINE [address] [place] [address] | [address] [place] [address] | vaccination (Primary | | | | [place], | [place] | Dx) | | | | [place] [address] | [address] | | | | | [phone] | | | +--------+ + + + [...] + documented as of this encounter Progress Caty Goldman, Jacquard Card Lacer - 02/21/2018 1:30 PM PDTAfter obtaining informed consent, the immunization is given by Caty Napoles CMA . document ed in this encounter Plan of Treatment +--------+---------+ + + + | Date | Type | Specialty | Care Team | Description | +--------+---------+ + + + | 04/29/ | Office | Internal Medicine | Abrahan Samaniego MD | | | 2019 | Visit | | [address] [place] [address] | | | | | | [place] | | | | | | [address] | | | | | | | | +--------+---------+ + + + | 07/25/ | Office | Cardiology | Renetta, | | | 2020 | Visit | | [facility] [address] | | | | | | [place] | | | | | | [place] [address] | | | | | | [phone] | | | | | | | [...] + | Diagnosis | + + | Need for influenza vaccination - Primary Need for prophylactic vaccination and | | inoculation against influenza | + + documented in this encounter"
--- OUTSIDE RECORDS SUMMARY | ~2020-01-04 | XMS | Encounter Summary ---
Demographics + + + | Address | [address] | | | [place] [address] | + + + | Home Phone [...] Author | [facility] | [...] [place], | | | | | [place] [address] | | + + + + + | Ryan Vogt | ECON | Unknown | | + + + + + | Rob Vogt | ECON | Unknown | | + + + + + Care Team Providers + +------+ + | Care Premix Concrete Batcher Name | Role | Phone | + +------+ + | Abrahan Samaniego MD | PCP | | + +------+ + Encounter Details +--------+ + + + + | Date | Type | Department | Care Team | Description | +--------+ + + + + | 05/22/ | Hospital | [facility] | Abrahan Samaniego MD | Screening for breast | | 2019 | Encounter | MED CTR MAMMOGRAPHY | [address] [facility] | cancer | | | | [address] | [place] | | | | | [place] | [address] | | | | | [address] | | | | | | [phone] | | | +--------+ + + + [...] OMNITROPE 5 | | | 0 | 03/31/20 | | | MG/1.5ML SOLN | | [...] as of this encounter Miscellaneous Notes Result Cheryl Dominguez MD - 05/22/2019 2:45 PM PSTPlease note your mammogram r esult is stable, benign, please make sure you get mammogram in one year Best regards, MCosma do cumented in this encounter Plan of Treatment +--------+---------+ + + + | Date | Type | Specialty | Care Team | Description | +--------+---------+ + + + | 04/29/ | Office | Internal Medicine | Abrahan Samaniego MD | | | 2019 | Visit | | [address] [facility] | | | | | | [place] | | | | | | [id number] | | | | | | | | +--------+---------+ + + + | 07/25/ | Office | Cardiology | Renetta, | | | 2020 | Visit | | [facility] [address] | | | | | | [place], | | | | | | [place] [address] | | | | | | [phone] | | | | | | | | +--------+---------+ + + + | 09/03/ | Office | Endocrinology | Cheryl Zee MD | | | 2020 | Visit | | [address] | | | | | | [address] [place] | | | | | | [phone] | | | | | | | | +--------+---------+ + + + documented as of this encounter Procedures + +--------+ + + + | Procedure Name | Priori | Date/Time | Associated Diagnosis | Comments | | | ty | | | | + +--------+ + + + | LUIZ TOMOSYN | Routin | 05/22/2019 | Screening for | Results for this | | SCREENING BILATERAL | e | 2:50 PM | breast cancer | procedure are in the | | | | PST | | results section. | + +--------+ + + + documented in this encounter Results LUIZ Tomosynthesis Screening Bilateral (05/22/2019 2:50 PM PST) + + | Specimen | + + | | + + + + + | Impressions | Performed At | + + + | 1. BIRADS 2, BENIGN. RECOMMENDATION: ANNUAL SCREENING | [facility] | | MAMMOGRAPHY. Dictated and Signed by: Gonzalo Barragan MD | | | Electronically signed: 05/23/2019 7:21 AM | | + + + + + + | Narrative | Performed At | + + + | BILATERAL DIGITAL SCREENING MAMMOGRAM WITH COMPUTER-AIDED DETECTION | [facility] | | AND TOMOSYNTHESIS 05/22/2019 2:49 PM CLINICAL HISTORY: Bilateral | | | screening exam. Asymptomatic, postmenopausal. Reported history of | | | breast cancer in the patient's sister. COMPARISON: 2018 and | | | previous mammograms dating back to 2014 FINDINGS: Breast | | | composition is comprised of scattered fibroglandular densities. There | | | are similar asymmetries in the breasts. Few round calcifications | | | persist unchanged. There is no suspicious microcalcification or | | | other evidence of malignancy. Darius images demonstrate no | | | suspicious mass or architectural distortion. Images were reviewed | | | with CAD. | | + + + + + | Procedure Note | + + | Vishnu, Rad Results In - 05/23/2019 7:24 AM PST BILATERAL DIGITAL SCREENING MAMMOGRAM | | WITH COMPUTER-AIDED DETECTION ANDTOMOSYNTHESIS 05/22/2019 2:49 PMCLINICAL HISTORY: | | Bilateral screening exam. Asymptomatic, postmenopausal. Reported history of breast | | cancer in the patient's sister.COMPARISON: 2018 and previous mammograms dating back to | | 2013FINDINGS: Breast composition is comprised of scattered fibroglandulardensities. | | There are similar asymmetries in the breasts. Few roundcalcifications persist | | unchanged. There is no suspicious microcalcification orother evidence of malignancy. | | Darius images demonstrate no suspicious mass or architectural distortion. Imageswere | | reviewed with CAD.IMPRESSION: 1. BIRADS 2, BENIGN.RECOMMENDATION: ANNUAL SCREENING | | MAMMOGRAPHY.Dictated and Signed by: Gonzalo Barragan MD Electronically signed: 05/23/2019 | | 7:21 AM | |other evidence of malignancy. | | | |Darius images demonstrate no suspicious mass or architectural distortion. Images | |were reviewed with CAD. | | | |IMPRESSION: | |1. BIRADS 2, BENIGN. | | | |RECOMMENDATION: ANNUAL SCREENING MAMMOGRAPHY. | | | |Dictated and Signed by: Gonzalo Barragan MD | | Electronically signed: 05/23/2019 7:21 AM | + + + +---------+ + + | Performing | Address | City/State/Zipcode | Phone Number | | Organization | | | | + +---------+ + + | [facility] | | | | + +---------+ + + documented in this encounter Visit Diagnoses + + | Diagnosis | + + | Screening for breast cancer Breast screening, unspecified | + + documented in this encounter"
--- OUTSIDE RECORDS SUMMARY | ~2020-01-04 | XMS | Encounter Summary ---
Demographics + + + | Address | [address] | | | [place] [address] | + + + | Home Phone [...] | Author | [facility] | | | and [...] [place], | | | | | [place] [address] | | + + + + + | Ryan Vogt | ECON | Unknown | | + + + + + | Rob Vogt | ECON | Unknown | | + + + + + Care Team Providers + +------+ + | Care Medical Device Name | Role | Phone | + [...] | [address] | [place] | [place] | | | | | | [address] | [place] | | | | | | Phone: | [place] [address] | | | | | | [phone] | Phone: | | | | | | Fax: | [phone] | | | | | | [phone] | Fax: | | | | | | | [phone] | +--------+--------+ + + + + Reason for Visit + + + | Reason | Comments | + + + | Hypopituitarism | Follow up | + + + Evaluate & Treat (Urgent) +--------+ + + + + + | Status | Reason | Specialty | Diagnoses / | Referred By | Referred To | | | | | Procedures | Contact | Contact | +--------+ + + + + + | Closed | Specialty | Endocrinology | Diagnoses | Samaniego, | [place], | | | Services | | | Abrahan Cortez MD | MD Cheryl | | | Required | | 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) | | | +--------+ + + + + + Encounter Details +--------+---------+ + + + | Date | Type | Department | Care Team | Description | +--------+---------+ + + + | 01/27/ | Office | [facility] | Cheryl Zee MD | Growth hormone | | 2019 | Visit | [place] | [address] [place] | deficiency (HCC) | | | | ENDOCRINOLOGY [address] | [address] [place], [place] | (Primary Dx); | | | | [address] | [phone] | Hypopituitarism | | | | [place], [place] | | (HCC); Secondary | | | | [address] | | adrenal | | | | [phone] | | insufficiency (HCC); | | | | | | Secondary | | | | | | hypothyroidism; | | | | | | Other osteoporosis | | | | | | without current | | | | | | pathological | | | | | | fracture; Diplopia | +--------+---------+ + + + Social History [...] + + + | Blood Pressure | 110/52 | 01/27/2019 2:04 PM | | | | | PDT | | + + + + + | Pulse | 78 | 01/27/2019 2:04 PM | | | | | PDT | | + + + + + | Temperature | - | - | | + + + + + | Respiratory Rate | 20 | 01/27/2019 2:04 PM | | | | | PDT | | + + + + + | Oxygen Saturation | - | - | | + + + + + | Inhaled Oxygen | - | - | | | Concentration | | | | + + + + + | Weight | 70.3 kg (155 lb) | 01/27/2019 2:04 PM | | | | | PDT | | + + + + + | Height | 162.6 cm (5' 4") | 01/27/2019 2:04 PM | | | | | PDT | | + + + + + | Body Mass Index | 26.61 | 01/27/2019 2:04 PM | | | | | PDT | | + + + + + documented in this encounter Patient Instructions Patient Instructions Cheryl Zee MD - 01/27/2019 1:10 PM PDTPlease get repeat creatini ne (kidney test) after good hydration After this result we will decide regarding MRI pituitary Continue close monitor of BP (Should not be below 99/59) May restart growth hormone at 0.3 mg daily, we need repeat pituitary hormone testing in 3 m ont, continue all other meds We will discuss osteoporosis treatment after above tests, please review info on Reclast Zoledronic Acid injection (Paget's Disease, Osteoporosis) Brand Names: Reclast, Zometa What is this medicine? ZOLEDRONIC ACID (SYLVIA mindi ellis ik id) lowers the amount of calcium loss from bone. It is u sed to treat Paget's disease and osteoporosis in women. How should I use this medicine? This medicine is for infusion into a vein. It is given by a health caregivers homecare in a h ospital or clinic setting. Talk to your refrigeration mechanic helper regarding the use of this medicine in children. This medicine is not approved for use in children. What side effects may I notice from receiving this medicine? Side effects that you should report to your doctor or health caregivers homecare as soon as p ossible: allergic reactions [...] attention (report to your doctor or health caregivers homecare if they continue or are bothersome): bone, [...] your dose. Call your doctor or health caregivers homecare if you are unable to keep an [...] this medicine? Visit your doctor or health caregivers homecare for regular checkups. It may be some [...] an unborn child. Talk to your health caregivers homecare or pharmacist for more information. You should [...] encounter Progress Notes Cheryl Zee MD - 01/27/2019 1:10 PM PDT Patient Name: Oliva Vogt : 1950 Age: 68 y.o. Sex: female Referring Provider: Abrahan Samaniego MD PCP: Abrahan Samaniego MD Date of Service: 01/27/2019 Chief Complaint Patient presents with Hypopituitarism Follow up History of presenting illness Oliva Vogt is a 68 y.o. female who presents for Hypopituitarism (Follow up ) She is here for a follow-up of growth hormone treatment. She started human growth hormone in October 2018 in form of Omnitrope 0.2 mg daily. She thinks she felt somewhat better on growth hormone but several events noted since this t reatment was started. She would like to continue growth hormone therapy if safe. She developed diplopia about a month ago- intermittent, lasting seconds; stopped HCH therap y she was at her third pen. She had ophthalmology visit, no abnormality was found and visua l field testing was planned and she saw her primary care doctor. She had cardiovascular evaluation because she has chest pain and SOB when walking to go to work; mild coronary artery disease with normal ejection fraction was found after she had an angiogram and cardiac echo; she told she may have had cardiovascular spasm. She was advised to continue high potency statin. She was recently diagnosed with hypertension and she takes low-dose amlodipine. She reports weight gain, leg swelling, easy bruising and tinnitus; no headaches. She completed multiple tests and we reviewed the results Results from January 17, 2019 normal liver test LDL cholesterol 70 January 10, 2019 vitamin D normal at 56 phosphorus 3.1 IGF-I 77 free T4 1.3 calcium 9.5 Album in 3.9 GFR 46 with creatinine 1.16 August 22, 2018 urinary calcium was 316/20 4 hours. LDL 103 prolactin 1.9 IGF-I 31 potassiu m 3.5 liver test normal free T4 1 TSH 0.05 celiac screen negative PTH 78 vitamin D 38 potass ium 2.5 calcium 9.8 albumin 4.2 Reports she takes 500 mg of calcium and 1000 units of vitamin D; she works part-time, she a dmits to personal stress after her August 2018 after prolonged illness. SHe is very compliant with levothyroxine 100 mcg daily and prednisone 6 mg daily. She admi ts that she is always thirsty and she [...] hasnopast treatment of osteoporosis . Problem List Diplopia Growth hormone deficiency Hypopituitarism Overview Due to Guero sd Other osteoporosis without current pathological fracture Secondary adrenal insufficiency Secondary hypothyroidism Review of Systems Constitutional: Negative. Weight gain HENT: Positive for tinnitus. Eyes: Negative. Respiratory: Negative. Cardiovascular: Positive for leg swelling. Gastrointestinal: Negative. Genitourinary: Negative. Musculoskeletal: Negative. Skin: [...] CV LHC; Surgeon: Benigno Deras MD; Location: [facility] CV LAB CHOLECYSTECTOMY COLONOSCOPY 03/12/2014 COLONOSCOPY; Laterality: N/A; Surgeon: Shaji Thornton MD; Location: [facility] MEDICAL PROCEDU RE UNIT CYST [...] Abdominal aortic aneurysm Brother Lung cancer Sister Medications Current Outpatient Medications Medication [...] MULTIVITAMIN PLUS) TABS Take by mouth Daily. nitroglycerin (NITROSTAT) 0.[address] 1 tablet under the tongue every 5 marla hay as needed for Chest pain. 100 tablet 3 OMNITROPE 5 MG/1.5ML SOLN potassium chloride (KLOR-CON) [...] to wake up Labs review Recent Labs 01/17/19 1454 01/10/19 0804 NA -- 143 K -- 3.7 CO2 -- 27 BUN -- 17 CREA -- 1.16* GLU -- 85 BILITOT 0.7 0.7 AST 23 20 ALT 33 37 ALKPHOS 76 72 TSH -- 0.01* Hematology: Recent Labs 11/10/18 1116 [...] Gener ation test if indicated. Physical Examination Vs: BP 110/52 | Pulse 78 | Resp 20 | Ht 1.626 m (5' 4") | Wt 70.3 kg (155 lb) | Breas tfeeding? No | BMI 26.61 kg/m General: Well-developed and well-nourished, in no acute distress. SKIN Normal temperature, No rashes. Eyes: PERRLA, EOMI Neck: Normal appearing. Trachea is midline. Thyroid small . No discrete nodules. Lymphatic: No cervical, supraclavicular [...] judgment and insight. Assessment & Plan 1. Growth hormone deficiency (HCC) 2. Hypopituitarism (HCC) Basic Metabolic Panel 3. Secondary adrenal insufficiency (HCC) 4. Secondary hypothyroidism 5. Other osteoporosis without current pathological fracture 6. 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 We recently started growth hormone therapy. Most likely diplopia not related to this treatment but we will check MRI pituitary; not had any pituitary imaging in the last 10 years or so. Before MRI pituitary will recheck creatinine in well-hydrated state. We discussed appears to have chronic renal insufficiency stage III that may have worsened after she received iodi nated contrast during her angiogram. She will continue all that her hormones with doses as before. We plan osteoporosis treatment after creatinine is verified, discussed options and she is c omfortable considering Reclast. Would like to avoid oral bisphosphonates because she has ga stritis flaring intermittently probably related to steroids. She is careful to take prednis one with food; she will review information about Reclast today. We will continue calcium an d vitamin D, exercises as before. Return 3 months Plan: Please get repeat creatinine (kidney test) after good hydration After this result we will decide regarding MRI pituitary Continue close monitor of BP (Should not be below 99/59) May restart growth hormone at 0.3 mg daily, we need repeat pituitary hormone testing in 3 m [facility], continue all other meds We will discuss osteoporosis treatment after above tests, please review info on Reclast Zoledronic Acid injection (Paget's Disease, Osteoporosis) Brand Names: Reclast, Zometa What is this medicine? ZOLEDRONIC ACID (SYLVIA le dron ik id) lowers the amount of calcium loss from bone. It is u sed to treat Paget's disease and osteoporosis in women. How should I use this medicine? This medicine is for infusion into a vein. It is given by a health caregivers homecare in a h ospital or clinic setting. Talk to your refrigeration mechanic helper regarding the use of this medicine in children. This medicine is not approved for use in children. What side effects may I notice from receiving this medicine? Side effects that you should report to your doctor or health caregivers homecare as soon as p ossible: allergic reactions [...] attention (report to your doctor or health caregivers homecare if they continue or are bothersome): bone, [...] your dose. Call your doctor or health caregivers homecare if you are unable to keep an [...] this medicine? Visit your doctor or health caregivers homecare for regular checkups. It may be some [...] an unborn child. Talk to your health caregivers homecare or pharmacist for more information. You should [...] or health care provider. Copyright 2019 Elsevier Cheryl Zee MD on 01/27/2019 at 19:11 documented in this enc ounter Plan of [...] | | | | | | [place] [address] | | | | | | [phone] | | | | | | | | +--------+---------+ + + + | 09/03/ | Office | Endocrinology | Cheryl Zee MD | | | 2020 | Visit | | [address] | | | | | | [address] [place] | | | | | | [phone] | | | | | | | | +--------+---------+ + + + documented as of this encounter Results MRI Pituitary w wo [...] | | | Dictated and Signed by: aRghu Truong MD Electronically | | | signed: [...] | | | + +---------+ + + Basic Metabolic Panel (02/09/2019 4:13 PM PDT) + + + + [...] + + | K | 3.9 | 3.4 - 5.1 | [facility] | [...] + + + + | CO2 | 26 | 20 - 31 mmol/L | [facility] | | | | | | [facility] | | | | | | [facility] | | | | | | [facility] - | | | | | | LABORATORY | | + + + + + + | Anion Gap | 5 | 3 - 16 mmol/L | [facility] | | | | | | [facility] | | | | | | MEDICAL | | | | | | CENTER - | | | | | | LABORATORY | | + + + + + + | Glucose | 131 (H) | 60 - 106 mg/dL | [facility] | | | | | | [facility] | | | | | | MEDICAL | | | | | | CENTER - | | | | | | LABORATORY | | + + + + + + | BUN | 16 | 9 - 23 mg/dL | [facility] | | | | | | [facility] | | | | | | MEDICAL | | | | | | CENTER - | | | | | | LABORATORY | | + + + + + + | Creatinine | 1.05 (H) | 0.55 - 1.02 | [facility] | | | | | mg/dL | [facility] | | | | | | MEDICAL | | | | | | CENTER - | | | | | | LABORATORY | | + + + + + + | eGFR, | 52 (L)Comment: | >=60 | [facility] | | | non- | GLOMERULAR FILTRATION | mL/min/1.73m2 | [facility] | | | Spanish | RATE,ESTIMATED | | MEDICAL | | | | mL/min/1.81h8Atyl than | | CENTER - | | [...] + + + + | BUN/Creatin | 15.2 | | [facility] | | | ine [...] [address] | [place] | [phone] | | 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
--- OUTSIDE RECORDS SUMMARY | ~2020-01-04 | XMS | Encounter Summary ---
Demographics + + + | Address | [address] | | | [place] [address] | + + + | Home Phone | | + + + | Preferred Language | Unknown | + + + | Marital Status | | + + + | Uatsdin Affiliation | 1027 | + + + | Race | Unknown | + + + | Ethnic Group | Unknown | + + + Author + + + | Author | [facility] | | | and [place] | + + + | Organization | [facility] | | [...] [address] | | | | | [address] [place], | | | | | [place] [address] | | + + + + + | Ryan Vogt | ECON | Unknown | | + + + + + | Rob Vogt | ECON | Unknown | | + + + + + Care Team Providers + +------+ + | Care Analysis Analyst Name | Role | Phone | + +------+ + | Abrahan Samaniego MD | PCP | | + +------+ + Reason for Visit + +--------+ + | Reason | Onset | Comments | | | Date | | + +--------+ + | Medication Related | 10/20/ | | | | 2019 | | + +--------+ + Encounter Details +--------+ + + + + | Date | Type | Department | Care Team | Description | +--------+ + + + + | 10/20/ | Telephone | [facility] | Cheryl Zee MD | Medication Related | | 2018 | | [facility] [place] | [address] [place] | | | | | ENDOCRINOLOGY [address] | [address] [place] | | | | | [address] [place] [address] | [address] | | | | | [place] | | | | | | [address] | | | | | | [phone] | | | +--------+ + + + [...] Miscellaneous Notes Telephone Encounter - Oliva Son, Assistant Professor Of Theater - 10/20/2018 5:20 PM PDTSpoke wit pharmacy they are sending the rx out to patient tomorrow. Spoke with patient she understands that pharmacy will be calling her to schedule delivery. eleph one Encounter - Amanda Gupta - 10/20/2018 5:04 PM PDTPatient called, pharmacy does n ot have an order for cartridges, please call patient. documented in this encounter Plan of Treatment +--------+---------+ + + + | Date | Type | Specialty | Care Team | Description | +--------+---------+ + + + | 04/29/ | Office | Internal Medicine | Abrahan Samaniego MD | | | 2019 | Visit | | [address] [facility] | | | | | | [place] | | | | | | [address] | | | | | | | | +--------+---------+ + + + | 07/25/ | Office | Cardiology | Renetta, | | | 2020 | Visit | | [facility] [address] | | | | | | [place], | | | | | | [place] [address] | | | | | | [phone] | | | | | | | | +--------+---------+ + + + | 09/03/ | Office | Endocrinology | Cheryl Zee MD | | | 2020 | Visit | | [address] | | | | | | [address] [place] | | | | | | [phone] | | | | | | | | +--------+---------+ + + + documented as of this encounter Visit Diagnoses Not on filedocumented in this encounter"
--- OUTSIDE RECORDS SUMMARY | ~2020-01-04 | XMS | Encounter Summary ---
Demographics + + + | Address | [address] | | | [place] [address] | + + + | Home Phone | | + + + | Preferred Language | Unknown | + + + | Marital Status | | + + + | Jain Affiliation | 1027 | + + + | Race | Unknown | + + + | Ethnic Group | Unknown | + + + Author + + + | Author | [facility] | | | and [place] | + + + | Organization | [facility] | | | and [...] [place], | | | | | [place] [address] | | + + + + + | Ryan Vogt | ECON | Unknown | | + + + + + | Rob Vogt | ECON | Unknown | | + + + + + Care Team Providers + +------+ + | Care White Sugar Syrup Operator Name | Role | Phone | + +------+ + | Abrahan Samaniego MD | PCP | | + +------+ + Encounter Details +--------+ + + + + | Date | Type | Department | Care Team | Description | +--------+ + + + + | 04/24/ | Hospital | [facility] | | | | 2010 | Encounter | MED CTR XRAY [address] | | | | | | [address] | | | | | | [place] [address] | | | | | | [phone] | | | +--------+ + + + [...] [place] | | | | | | 9[address]202 | | | | | | | | +--------+---------+ + + + | 07/25/ | Office | Cardiology | Renetta, | | | 2020 | Visit | | PARKER Harris [address] | | | | | | [place] | | | | | | [place] [address] | | | | | | [phone] | | | | | | | [...] | MRI BRAIN W WO | | 04/24/2011 | | Results for this | | CONTRAST | | 12:29 PM | | procedure are in the | | | | PST | | results section. | + +--------+ + + + documented in this encounter Results MRI Brain w wo Contrast (04/24/2011 12:29 PM PST) + + | Specimen | + + | | + + + + + | Narrative | Performed At | + + + | [facility] Diagnostic Imaging Department | [facility] | | [address] [facility] | [facility] | | BRAIN MR WITH AND WITHOUT | DIAG IMG | | CONTRAST, 04/24/2011 CLINICAL HISTORY: NEW VISUAL CHANGES, | | | HYPOPITUITARISM; HISTORY OF MIROSLAVA'S SYNDROME. TECHNIQUE: Whole | | | brain imaging included transaxial spin echo PD/T2. Dedicated thin | | | section high reso lution sella imaging was performed utilizing | | | precontrast coronal fast spin echo T2, sagittal and alee nal T1 pre- | | | and post-gadolinium. FINDINGS: High-resolution thin-section pre- | | | and postcontrast images through the sella demonstrate pa rtially | | | empty sella consistent with the clinical history of Miroslava's | | | syndrome. There is concave celeste phragma sella, with a small residual | | | gland. The infundibulum is midline. There is normal enhancemen t | | | of the remainder of the gland at the floor of sella. Coronal images | | | demonstrate an otherwise kaitlin l suprasellar cistern. There is no | | | inferior herniation of the optic chiasm which appears normal in p | | | osition and signal. The optic nerves are unremarkable to the level | | | of the optic foramina. Cavernous sinuses are normal. The | | | sphenoid sinus demonstrates sinusitis. Whole brain images show no | | | abnormal enhancement. Kidd and white matter are normal for age. | | | There is no restricted diffusion or abnormality on SWI. There | | | is incidental note of irregular presumably sclerotic low-signal | | | lesion seen in the right fronta l bone only on coronal images (T1 | | | pre- and postcontrast, and precontrast T2). There is a suggestion | | | of irregularity and possible disruption of the inner table. This | | | could represent a benign or osteobl astic malignant lesion. This | | | should be correlated with any clinical history of malignancy. If | | | clini matheus suspicious, whole body imaging with nuclear medicine bone | | | scanning may be helpful to assess for bone activity. | | | IMPRESSION: 1. EMPTY SELLA TURCICA CONSISTENT WITH HISTORY OF | | | MIROSLAVA'S SYNDROME. 2. OTHERWISE NORMAL BRAIN. 3. SPHENOID | | | SINUSITIS. 4. IRREGULAR CALVARIAL LESION OF THE RIGHT FRONTAL | | | BONE, BENIGN VERSUS NEOPLASTIC. RECOMMENDATION: BONE SCAN. | | | Dictated Date/Time: 04/24/2011 14:55 Transcribed Date/Time: | | | 04/24/2011 17:42 Entry Level Web Developer: <Electronically Signed | | | by Juan Youssef MD> 04/26/11 5655 | | + + + + + | Procedure Note | + + | Cyrus Mares Conversion - 07/14/2013 4:15 PM [facility] | | Diagnostic Imaging Department [address] [place] [address] | | BRAIN MR WITH AND WITHOUT CONTRAST, 04/24/2011 CLINICAL | | HISTORY: NEW VISUAL CHANGES, HYPOPITUITARISM; HISTORY OF MIROSLAVA'S SYNDROME. | | TECHNIQUE: Whole brain imaging included transaxial spin echo PD/T2. Dedicated thin | | section high resolution sella imaging was performed utilizing precontrast coronal fast | | spin echo T2, sagittal and coronal T1 pre- and post-gadolinium. FINDINGS: | | High-resolution thin-section pre- and postcontrast images through the sella demonstrate | | partially empty sella consistent with the clinical history of Miroslava's syndrome. There | | is concave diaphragma sella, with a small residual gland. The infundibulum is midline. | | There is normal enhancement of the remainder of the gland at the floor of sella. | | Coronal images demonstrate an otherwise normal suprasellar cistern. There is no | | inferior herniation of the optic chiasm which appears normal in position and signal. | | The optic nerves are unremarkable to the level of the optic foramina. Cavernous sinuses | | are normal. The sphenoid sinus demonstrates sinusitis. Whole brain images show no | | abnormal enhancement. Kidd and white matter are normal for age. There is no restricted | | diffusion or abnormality on SWI. There is incidental note of irregular presumably | | sclerotic low-signal lesion seen in the right frontal bone only on coronal images (T1 | | pre- and postcontrast, and precontrast T2). There is a suggestion of irregularity and | | possible disruption of the inner table. This could represent a benign or osteoblastic | | malignant lesion. This should be correlated with any clinical history of malignancy. | | If clinically suspicious, whole body imaging with nuclear medicine bone scanning may be | | helpful to assess for bone activity. IMPRESSION: 1. EMPTY SELLA TURCICA CONSISTENT WITH | | HISTORY OF MIROSLAVA'S SYNDROME. 2. OTHERWISE NORMAL BRAIN. 3. SPHENOID SINUSITIS. 4. | | IRREGULAR CALVARIAL LESION OF THE RIGHT FRONTAL BONE, BENIGN VERSUS NEOPLASTIC. | | RECOMMENDATION: BONE SCAN. Dictated Date/Time: 04/24/2011 14:55Transcribed Date/Time: | | 04/24/2011 17:42Transcriptionist: <Electronically Signed by Juan Youssef MD> | | 04/26/11 1453 | |astic malignant lesion. This should be correlated with any clinical history of malignancy. If clini | |matheus suspicious, whole body imaging with nuclear medicine bone scanning may be helpful to assess for | | bone activity. | | | |IMPRESSION: | |1. 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 | | | |2. OTHERWISE NORMAL BRAIN. | | | |3. SPHENOID SINUSITIS. | | | |4. IRREGULAR CALVARIAL LESION OF THE RIGHT FRONTAL BONE, BENIGN VERSUS NEOPLASTIC. | | | |RECOMMENDATION: BONE SCAN. | | | |Dictated Date/Time: 04/24/2011 14:55 | |Transcribed Date/Time: 04/24/2011 17:42 | |Entry Level Web Developer: | |<Electronically Signed by Juan Youssef MD> 04/26/11 1453 | + + + +---------+ + + [...]
--- OUTSIDE RECORDS SUMMARY | ~2020-01-04 | XMS | Encounter Summary ---
Demographics + + + | Address | [address] | | | [place] [address] | + + + | Home Phone [...] | Author | [facility] | | | and [place] [...] [place], | | | | | [place] [address] | | + + + + + | Ryan Vogt | ECON | Unknown | | + + + + + | Rob Vogt | ECON | Unknown | | + + + + + Care Team Providers + +------+ + | Care Die Storage Clerk Name | Role | Phone | + +------+ + PCP | Unavailable | + +------+ + Encounter Details +--------+ + + + + | Date | Type | Department | Care Team | Description | +--------+ + + + + | 02/23/ | Hospital | [facility] | Ifeanyi Romo, | | | 2006 - | Encounter | MED CTR DIETARY | [address] | | | | | [address] [place] | [place] | | | 03/25/ | | [place] [address] | [address] | | | 2005 | | [phone] | | | +--------+ + + + [...] [place] | | | | | | [address] | | | | | | | | +--------+---------+ + + + | 07/25/ | Office | Cardiology | Renetta | | | 2020 | Visit | | [facility] [address] | | | | | | [place], | | | | | | [place] [address] | | | | | | [phone] | | | | | | | | +--------+---------+ + + + | 09/03/ | Office | Endocrinology | Cheryl Zee MD | | | 2020 | Visit | | [address] | | | | | | [address] [place] | | | | | | [address] | | | | | | | | +--------+---------+ + + + documented as of this encounter Visit Diagnoses Not on filedocumented in this encounter"
--- OUTSIDE RECORDS SUMMARY | ~2020-01-04 | XMS | Encounter Summary ---
Demographics + + + | Address | [address] | | | [place] [address] | + + + | Home Phone [...] | Author | [facility] | | | and [...] [place], | | | | | [place] [address] | | + + + + + | Ryan Vogt | ECON | Unknown | | + + + + + | Rob Vogt | ECON | Unknown | | + + + + + Care Team Providers + +------+ + | Care Ammunition Storekeeper Name | Role | Phone | + [...] | | | roidism | [address] | [facility] [address] | | | | | (HCC) | [place], | [place] | | | | | Osteoporosis | [place] [address] | [address] Phone: | | | | | , | Phone: | [phone] | | | | | unspecified | [phone] | Fax: | | | | | osteoporosis | Fax: | [phone] | | | | | type, | [phone] | | | | | | unspecified | | | | | | | pathological | | | | | | | fracture | | | | | | | presence | | | | | | | Panhypopitui | | | | | | | tarism (HCC) | | | +--------+ + + + + + Reason for Visit + +--------+ + | Reason | Onset | Comments | | | Date | | + +--------+ + | Results | 08/31/ | | | | 2017 | | + +--------+ + | Referral | 08/31/ | | | | 2017 | | + +--------+ + Encounter Details +--------+ + + + + | Date | Type | Department | Care Team | Description | +--------+ + + + + | 08/31/ | Telephone | [facility] | Abrahan Samaniego MD | Results; Referral | | 2017 | | MEDICINE [address] | [address] [facility] | | | | | [place], | [place] | | | | | [place] [address] | [address] | | | | | [phone] | | | +--------+ + + + [...] Telephone Encounter - Christina Wilson LPN - 08/31/2017 11:39 AM PDTNotified patient of Vit D levels And to increase to 2000 IU's. She prefers referral to Dr. Zee as that is who abiodun montalvo has always seen for her endocrine issues - referral entered. elephone Encounter - Christina Wilson LPN - 2017 11:10 AM PDTLeft message to call. elephone Encounter - Xi Leahy - 08/31/2017 11:04 AM PDTLaura returned call please try her back at elephone Encounter - Christina Wilson LPN - 08/31/2017 10:54 AM PDTLeft message to call. elephone Encounter - Abrahan Samaniego MD - 08/31/2017 8:21 AM PDTHer Vit D is slightly low so I would like her to increase her Vit D3 from 1000 Int Units per day to 2000 Int Units per day (updated) Her parathyroid hormone is also abnormal which could lead to bone loss. I would like her to see the endo before she starts on anything for her bones. Does she have an endo? Would she like to change to Dr Chapa so that she has one locally? If so please put in referral for hyperparathyroid, osteoporosis and panhypopituitarism. documented in this enc ounter Plan of Treatment +--------+---------+ + + + | Date | Type | Specialty | Care Team | Description | +--------+---------+ + + + | 04/29/ | Office | Internal Medicine | Abrahan Samaniego MD | | | 2019 | Visit | | [address] [place] [address] | | | | | | [place] | | | | | | [address] | | | | | | | | +--------+---------+ + + + | 07/25/ | Office | Cardiology | Renetta, | | | 2020 | Visit | | PARKER Harris [address] | | | | | | [place] | | | | | | [place] [address] | | | | | | [phone] | | | | | | | | +--------+---------+ + + + | 09/03/ | Office | Endocrinology | Cheryl Zee MD | | | 2020 | Visit | | [address] | | | | | | [address] [place] | | | | | | [address] | | | | | | | | +--------+---------+ + + + + + +--------+ + + | Name | Type | Priori | Associated Diagnoses | Order Schedule | | | | ty | | | + + +--------+ + + | Endocrinology, | Outpatient | URI | | Ordered: 08/31/2017 | | External - AMB | Referral | | Hyperparathyroidism | | | Referral | | | ([facility]) Osteoporosis, | | | | | | unspecified | | | | | | osteoporosis type, | | | | | | unspecified | | | | | | pathological | | | | | | fracture presence | | | | | | Panhypopituitarism | | | | | | ([facility]) | | + + +--------+ + + documented as of this encounter Visit Diagnoses + + | Diagnosis | + + | Hyperparathyroidism (HCC) - Primary Hyperparathyroidism, unspecified | + + | Osteoporosis, unspecified osteoporosis type, unspecified pathological fracture | | presence | + + | Panhypopituitarism (HCC) Panhypopituitarism | + + documented in this encounter"
--- OUTSIDE RECORDS SUMMARY | ~2020-01-04 | XMS | Encounter Summary ---
Demographics + + + | Address | [address] | | | [place] [address] | + + + | Home Phone [...] Author | [facility] | | | and [place] [...] [place], | | | | | [place] [address] | | + + + + + | Ryan Vogt | ECON | Unknown | | + + + + + | Rob Vogt | ECON | Unknown | | + + + + + Care Team Providers + +------+ + | Care Tour Bus Driver/Guide Name | Role | Phone | + +------+ + PCP | Unavailable | + +------+ + Encounter Details +--------+ + + + + | Date | Type | Department | Care Team | Description | +--------+ + + + + | 08/10/ | Hospital | [facility] | Ifeanyi Romo, | | | 2008 | Encounter | MED CTR LABORATORY | [address] | | | | | [address] [place] | [place] | | | | | [place] | [address] | | | | | [address] | | | | | | [phone] | | | +--------+ + + + [...] [place] | | | | | | [address] | | | | | | | | +--------+---------+ + + + | 07/25/ | Office | Cardiology | Renetta | | | 2020 | Visit | | PARKER Harris [address] | | | | | | [place], | | | | | | [place] [address] | | | | | | [phone] | | | | | | | | +--------+---------+ + + + | 09/03/ | Office | Endocrinology | Cheryl Zee MD | | | 2020 | Visit | | [address] | | | | | | [address] [place] | | | | | | [address] | | | | | | | | +--------+---------+ + + + documented as of this encounter Visit Diagnoses Not on filedocumented in this encounter"
--- OUTSIDE RECORDS SUMMARY | ~2020-01-04 | XMS | Encounter Summary ---
Demographics + + + | Address | [address] | | | [place] [address] | + + + | Home Phone | | + + + | Preferred Language | Unknown | + + + | Marital Status | | + + + | Zoroastrian Affiliation | 1027 | + + + | Race | Unknown | + + + | Ethnic Group | Unknown | + + + Author + + + | Author | [facility] | | | and [place] | + + + | Organization | [facility] | | | [...] [place], | | | | | [place] [address] | | + + + + + | Ryan Vogt | ECON | Unknown | | + + + + + | Rob Vogt | ECON | Unknown | | + + + + + Care Team Providers + +------+ + | Care Chuck Wagon Driver Name | Role | Phone | + +------+ + PCP | Unavailable | + +------+ + Encounter Details +--------+ + + + + | Date | Type | Department | Care Team | Description | +--------+ + + + + | 03/16/ | Hospital | [facility] | Ifeanyi Romo, | | | 2006 | Encounter | MED CTR XRAY [address] | [address] | | | | | [place] | [place] | | | | | [place] [address] | [address] | | | | | [phone] | | | +--------+ + + + [...] | | 2019 | Visit | | [facility] [address] | | | | | | [place] | | | | | | [address] | | | | | | | | +--------+---------+ + + + | 07/25/ | Office | Cardiology | Renetta, | | | 2020 | Visit | | PARKER [facility] [address] | | | | | | [place], | | | | | | [place] [address] | | | | | | [phone] | | | | | | | | +--------+---------+ + + + | 09/03/ | Office | Endocrinology | Cheryl Zee MD | | | 2020 | Visit | | [address] | | | | | | [address] [place] | | | | | | [address] | | | | | | | | +--------+---------+ + + + documented as of this encounter Visit Diagnoses Not on filedocumented in this encounter"
--- OUTSIDE RECORDS SUMMARY | ~2020-01-04 | XMS | Encounter Summary ---
Demographics + + + | Address | [address] | | | [place] [address] | + + + | Home Phone | | + + + | Preferred Language | Unknown | + + + | Marital Status | | + + + | Baptism Affiliation | 1027 | + + + | Race | Unknown | + + + | Ethnic Group | Unknown | + + + Author + + + | Author | [facility] | [...] [place], | | | | | [place] [address] | | + + + + + | Ryan Vogt | ECON | Unknown | | + + + + + | Rob Vogt | ECON | Unknown | | + + + + + Care Team Providers + +------+ + | Care Planer Setup Operator Name | Role | Phone | [...] | Mammography | | | | | Osteoporosis | [address] | [address] | | | | | without | [address] | [place], | | | | | current | [place], | [place] | | | | | pathological | [place] [address] | [address] | | | | | fracture, | Phone: | Phone: | | | | | unspecified | [phone] | [phone] | | | | | osteoporosis | Fax: | Fax: | | | | | type | [phone] | [phone] | | | | | Procedures | | | | | | | DEXA BONE | | | | | | | DENSITY | | | | | | | STUDY WO | | | | | | | VERT FX | | | | | | | ASSESSMENT | | | +--------+--------+ + + + + Encounter Details +--------+ + + + + | Date | Type | Department | Care Team | Description | +--------+ + + + + | 12/20/ | Hospital | [facility] | Abrahan Samaniego MD | Osteoporosis without | | 2019 | Encounter | MED CTR MAMMOGRAPHY | [address] [facility] | current | | | | [address] | [place] | pathological | | | | [place] | [address] | fracture, | | | | [address] | | unspecified | | | | [phone] | | osteoporosis type | +--------+ + + + + Social [...] tablet by | 30 | 0 | 12/06/19 | | | (NORVASC) 5 mg | mouth Daily. | tablet | | 19 | 9 | | tabletIndications: | | | | | | | Angina at rest (HCC) | | | | | | + + + +---------+ + + | atorvaSTATin | Take 1 tablet by | 30 | 0 | 12/06/19 | | | (LIPITOR) 20 mg | mouth Daily. | tablet | | 19 | 9 | | tablet | | | | | | + + + +---------+ + + | ergocalciferol | Take 50,000 Units by | | 0 | | | | (VITAMIN D-2) 50,000 | mouth Once a week. | | | | 9 | | units capsule | | | | | | [...] + + + +---------+ + + | metoprolol | Take 1 tablet by | 30 | 0 | 11/11/19 | | | succinate | mouth Daily. | tablet | | 19 | 9 | | (TOPROL-XL) 25 mg 24 | | | | | | | hr tablet | | | | | | [...] tablet under | 100 | 3 | 12/06/19 | | | (NITROSTAT) 0.4 mg | [...] Result QuickNote - Cheryl Zee MD - 12/23/2018 5:53 PM PDTPlease note bone density is stable but lower than desired, in osteoporosis range. Lets discuss treatment when you return to see me. Please continue calcium and vit D intake. I ordered tests for you to take 1-2 weeks before our appointment Best regards, MCosma documented in th is encounter Plan of Treatment +--------+---------+ + + + | Date | Type | Specialty | Care Team | Description | +--------+---------+ + + + | 04/29/ | Office | Internal Medicine | Abrahan Samaniego MD | | | 2019 | Visit | | [address] [place] [address] | | | | | | [place] | | | | | | [address] | | | | | | | | +--------+---------+ + + + | 07/25/ | Office | Cardiology | Renetta | | | 2020 | Visit | | PARKER Harris [address] | | | | | | [place], | | | | | | [place] [address] | | | | | | [phone] | | | | | | | | +--------+---------+ + + + | 09/03/ | Office | Endocrinology | Cheryl Zee MD | | | 2020 | Visit | | [address] | | | | | | [address] [place] | | | | | | [id number] | | | | | | | | +--------+---------+ + + + documented as of this encounter Procedures + +--------+ + + + | Procedure Name | Priori | Date/Time | Associated Diagnosis | Comments | | | ty | | | | + +--------+ + + + | DEXA BONE DENSITY | Routin | 12/20/2018 | Osteoporosis | Results for this | | STUDY MARK LOPEZ | e | 2:58 PM | without current | procedure are in the | | ASSESSMENT | | PDT | pathological | results section. | | | | | fracture, | | | | | | unspecified | | | | | | osteoporosis type | | + +--------+ + + + documented in this encounter Results DEXA Bone Density wo Roque Lopez Assmt (12/20/2018 2:58 PM PDT) + + | Specimen | + + | | + + + + + | Narrative | Performed At | + + + | DEXA BONE DENSITY STUDY WO BEAUT SAUL ASSESSMENT 12/20/2018 2:58 PM | [facility] | | HISTORY: Osteoporosis. COMPARISON: 08/12/2017. PROTOCOL: Bone | | | mineral density was calculated with dual absorption x-ray technique. | | | FINDINGS: Bone mineral density for the left femoral neck is 0.554 | | | g/cm2, corresponding to a T score of -2.7 and a Z score of -0.9. | | | Compared to the last study, the bone mineral density for the entire | | | left hip has decreased by 0.5%. Bone mineral density for the | | | lumbar spine measured from L1 to L4 is 0.813 g/cm2, corresponding to | | | a T score of -2.1 and a Z score of -0.1. Compared to the last study, | | | the bone mineral density has increased by 2.6%. IMPRESSION - LEFT | | | FEMORAL NECK: Fracture risk: High; WHO classification: Osteoporosis. | | | L1-L4 REGION OF THE LUMBAR SPINE: Fracture risk: Increased; WHO | | | classification: Osteopenia. World Health Organization | | | Classification Normal: T score at or above | | | -1 SD Osteopenia: T score between -1 and -2.5 SD | | | Osteoporosis: T score at or below -2.5 SD Dictated and | | | Signed by: Luke Lanza MD Electronically signed: 12/20/2018 3:03 | | | PM | | + + + + + | Procedure Note | + + | Vishnu, Rad Results In - 12/20/2018 3:06 PM PDT DEXA BONE DENSITY STUDY WO VERT FX | | ASSESSMENT 12/20/2018 2:58 PMHISTORY: Osteoporosis.COMPARISON: 08/12/2017.PROTOCOL: Bone | | mineral density was calculated with dual absorption x-raytechnique.FINDINGS:Bone mineral | | density for the left femoral neck is 0.554 g/cm2, corresponding toa T score of -2.7 and | | a Z score of -0.9. Compared to the last study, the bonemineral density for the entire | | left hip has decreased by 0.5%.Bone mineral density for the lumbar spine measured from | | L1 to L4 is 0.813 g/cm2,corresponding to a T score of -2.1 and a Z score of -0.1. | | Compared to the laststudy, the bone mineral density has increased by 2.6%.IMPRESSION | | -LEFT FEMORAL NECK: Fracture risk: High; WHO classification: Osteoporosis.L1-L4 REGION | | OF THE LUMBAR SPINE: Fracture risk: Increased; WHO classification:Osteopenia.World | | Health Organization ClassificationNormal: T score at or above -1 | | SDOsteopenia: T score between -1 and -2.5 SDOsteoporosis: T score at or | | below -2.5 SD Dictated and Signed by: Luke Lanza MD Electronically signed: 12/20/2018 | | 3:03 PM | |Bone mineral density for the lumbar spine measured from L1 to L4 is 0.813 g/cm2, | |corresponding to a T score of -2.1 and a Z score of -0.1. Compared to the last | |study, the bone mineral density has increased by 2.6%. | | | |IMPRESSION - | |LEFT FEMORAL NECK: Fracture risk: High; WHO classification: Osteoporosis. | | | |L1-L4 REGION OF THE LUMBAR SPINE: Fracture risk: Increased; WHO classification: | |Osteopenia. | | | |World Health Organization Classification | |Normal: T score at or above -1 SD | |Osteopenia: T score between -1 and -2.5 SD | |Osteoporosis: T score at or below -2.5 SD | | | |Dictated and Signed by: Luke Lanza MD | | Electronically signed: 12/20/2018 3:03 PM | + + + +---------+ + + | Performing | Address | City/State/Zipcode | Phone Number | | Organization | | | | + +---------+ + + | [facility] | | | | + +---------+ + + documented in this encounter Visit Diagnoses + + | Diagnosis | + + | Osteoporosis without current pathological fracture, unspecified osteoporosis type | + + documented in this encounter"
--- OUTSIDE RECORDS SUMMARY | ~2020-01-04 | XMS | Encounter Summary ---
Demographics + + + | Address | [address] | | | [place] [address] | + + + | Home Phone | | + + + | Preferred Language | Unknown | + + + | Marital Status | | + + + | Mandaeism Affiliation | 1027 | + + + | Race | Unknown | + + + | Ethnic Group | Unknown | + + + Author + + + | Author | [facility] | | | and [place] | + + + | Organization | [facility] | | | [...] [place], | | | | | [place] [address] | | + + + + + | Ryan Vogt | ECON | Unknown | | + + + + + | Rob Vogt | ECON | Unknown | | + + + + + Care Team Providers + +------+ + | Care Brownfield Redevelopment Specialist Name | Role | Phone | [...] | Orthopedic | Diagnoses | [place], | | | | Services | Surgery | [facility] | Abrahan Cortez MD | | | | Required | | contracture | [id number] | | [address] | | | | | | | [place], | | | | | | | [place] [address] | | | | | | | Phone: | | | | | | | [phone] | | | | | | | Fax: | | | | | | | [phone] | | +--------+ + + + + + Reason for Visit + +--------+ + | Reason | Onset | Comments | | | Date | | + +--------+ + | Referral (Follow up) | 02/14/ | | | | 2012 | | + +--------+ + Encounter Details +--------+ + + + + | Date | Type | Department | Care Team | Description | +--------+ + + + + | 02/14/ | Telephone | [facility] | Abrahan Samaniego MD | Referral (Follow up) | | 2012 | | [address] | [address] [place] [address] | | | | | [place], | [place] | | | | | [place] [address] | [phone] | | | | | [phone] | | | +--------+ + + + [...] Telephone Encounter - Kassie Rasmussen RN - 02/14/2013 3:05 PM PDTPatient notified of the se directives. elepho ne Encounter - Abrahan Samaniego MD - 02/14/2013 1:17 PM PDTRef put in Due to the new computer system, referrals are not working as they should. Therefore, if tristan marie have not received an appointment for your referral within 5 business days, please phone o appsplit office at [phone]. documented in this enc ounter Plan of Treatment +--------+---------+ + + + | Date | Type | Specialty | Care Team | Description | +--------+---------+ + + + | 04/29/ | Office | Internal Medicine | Abrahan Samaniego MD | | | 2019 | Visit | | [address] [place] [address] | | | | | | [place] | | | | | | [address] | | | | | | | | +--------+---------+ + + + | 07/25/ | Office | Cardiology | Renetta, | | | 2020 | Visit | | [address] | | | | | | [place], | | | | | | [place] [address] | | | | | | [phone] | | | | | | | [...] Ambulatory referral | Outpatient | Routin | Dupuytren's | Ordered: 02/14/2013 | | to Orthopedic | Referral | e | contracture | | | Surgery | | | | | + + +--------+ + + documented as of this encounter Visit Diagnoses + + | Diagnosis | + + | Dupuytren's contracture - Primary Contracture of palmar fascia | + + documented in this encounter"
--- OUTSIDE RECORDS SUMMARY | ~2020-01-04 | XMS | Encounter Summary ---
Demographics + + + | Address | [address] | | | [place] [address] | + + + | Home Phone [...] Author | [facility] | [...] [place], | | | | | [place] [address] | | + + + + + | Ryan Vogt | ECON | Unknown | | + + + + + | Rob Vogt | ECON | Unknown | | + + + + + Care Team Providers + +------+ + | Care Industrial Gas Servicer Name | Role | Phone | + +------+ + | Abrahan Samaniego MD | PCP | | + +------+ + Encounter Details +--------+ + + + + | Date | Type | Department | Care Team | Description | +--------+ + + + + | 02/17/ | Abstract | [facility] | [facility] | | | 2011 | | Conversion Location | SR | | | | | [address] | | | | | | [place], [place] | | | | | | [address] | | | | | | [phone] | | | +--------+ + + + [...] + + + | Blood Pressure | 138/80 | 12/15/2011 12:00 AM | | | | | PDT [...] Weight | 68.5 kg (151 lb) | 12/15/2011 12:00 AM | | | | | PDT | | + + + + + | Height | 162.6 cm (5' 4") | 07/01/2009 12:00 AM | | | | | PST | | + + + + + | Body Mass Index | 25.92 | 07/01/2009 12:00 AM | | | | | PST | | + + + + + documented in this encounter Plan of Treatment +--------+---------+ + + + | Date | Type | Specialty | Care Team | Description | +--------+---------+ + + + | 04/29/ | Office | Internal Medicine | Abrahan Samaniego MD | | | 2019 | Visit | | [address] [place] [address] | | | | | | [place] | | | | | | [address] | | | | | | | | +--------+---------+ + + + | 07/25/ | Office | Cardiology | Renetta, | | | 2020 | Visit | | [address] | | | | | | [place] | | | | | | [place] [address] | | | | | | [phone] | | | | | | | | +--------+---------+ + + + | 09/03/ | Office | Endocrinology | Cheryl Zee MD | | | 2020 | Visit | | [address] | | | | | | [address] [place] | | | | | | [phone] | | | | | | | | +--------+---------+ + + + documented as of this encounter Procedures + +--------+ + + + | Procedure Name | Priori | Date/Time | Associated Diagnosis | Comments | | | ty | | | | + +--------+ + + + | ENDOSCOPY, COLON, | Routin | 11/05/2006 | | Results for this | | DIAGNOSTIC | e | 12:00 AM | | procedure are in the | | | | PDT | | results section. | + +--------+ + + + documented in this encounter Results ENDOSCOPY, COLON, DIAGNOSTIC (11/05/2006 12:00 AM PDT) + + | Specimen | + + | | + + + + + | Narrative | Performed At | + + + | | | + + + documented in this encounter Visit Diagnoses Not on filedocumented in this encounter
--- OUTSIDE RECORDS SUMMARY | ~2020-01-04 | XMS | Encounter Summary ---
Demographics + + + | Address | [address] | | | [place] [address] | + + + | Home Phone | | + + + | Preferred Language | Unknown | + + + | Marital Status | | + + + | Denominational Affiliation | 1027 | + + + | Race | Unknown | + + + | Ethnic Group | Unknown | + + + Author + + + | Author | [facility] | | | and [place] | + + + | Organization | [facility] | | [...] [place], | | | | | [place] [address] | | + + + + + | Ryan Vogt | ECON | Unknown | | + + + + + | Rob Vogt | ECON | Unknown | | + + + + + Care Team Providers + +------+ + | Care Panel Builder Name | Role | Phone | + +------+ + | Abrahan Samaniego MD | PCP | | + +------+ + Encounter Details +--------+ + + + + | Date | Type | Department | Care Team | Description | +--------+ + + + + | 09/22/ | Hospital | [facility] | Bee Simmons | | | 2011 | Encounter | [facility] | MD Lizy [address] | | | | | [address] [place] | [address] [place] | | | | | [place] | [place], [place] [address] | | | | | [address] | [phone] | | | | | [phone] | | | +--------+ + + + [...] +---------+ + + | omeprazole | Take 20 mg by mouth | | 0 | 09/01/19 | | | (PRILOSEC) 20 mg | Daily. | | | 12 | 2 | | capsule | | | | [...] | | | | | | [place] [address] | | | | | | [phone] | | | | | | | | +--------+---------+ + + + | 09/03/ | Office | Endocrinology | Cheryl Zee MD | | | 2020 | Visit | | [address] | | | | | | [address] [place] | | | | | | [address] | | | | | | | | +--------+---------+ + + + documented as of this encounter Visit Diagnoses Not on filedocumented in this encounter"
--- OUTSIDE RECORDS SUMMARY | ~2020-01-04 | XMS | Encounter Summary ---
Demographics + + + | Address | [address] | | | [place] [address] | + + + | Home Phone | | + + + | Preferred Language | Unknown | + + + | Marital Status | | + + + | Uatsdin Affiliation | 1027 | + + + | Race | Unknown | + + + | Ethnic Group | Unknown | + + + Author + + + | Author | [facility] | | | and [place] | + + + | Organization | [facility] | | [...] [place], | | | | | [place] [address] | | + + + + + | Ryan Vogt | ECON | Unknown | | + + + + + | Rob Vogt | ECON | Unknown | | + + + + + Care Team Providers + +------+ + | Care Examiner Of Currency Name | Role | Phone | + +------+ + | Abrahan Samaniego MD | PCP | | + +------+ + Reason for Visit +--------+--------+ + | Reason | Onset | Comments | | | Date | | +--------+--------+ + | LABS | 01/16/ | | | | 2018 | | +--------+--------+ + Encounter Details +--------+ + + + + | Date | Type | Department | Care Team | Description | +--------+ + + + + | 01/16/ | Telephone | [facility] [place] | [place] | LABS | | 2018 | | CARDIOLOGY [address] | [address] [address] | | | | | [address], | [place], | | | | | [place] [address] | [place] [address] | | | | | [phone] | [phone] | | | | | | | [...] this encounter Miscellaneous Notes Telephone Encounter - Jessi Hernandez RN - 01/16/2019 4:33 PM PDTLabs ordered. ....... ....................................Jessi Hernandez RN on 01/16/19 at 16:33 elephone Britta Mehta Partner - 01/16/2019 4:23 PM PDTPatient scheduled for an catarino ointment on 01/18/2019 and is needing a fasting Lipid panel and LFT. Please order, thank you. Called and left message stating that the patient is to have fasting labs done prior to her appointment. documented in this encounter Plan of Treatment +--------+---------+ + + + | Date | Type | Specialty | Care Team | Description | +--------+---------+ + + + | 04/29/ | Office | Internal Medicine | Abrahan Samaniego MD | | | 2019 | Visit | | [address] [place] [address] | | | | | | [place] | | | | | | [phone] | | | | | | | | +--------+---------+ + + + | 07/25/ | Office | Cardiology | Renetta, | | | 2020 | Visit | | [address] | | | | | | [place], | | | | | | [place] [address] | | | | | | [phone] | | | | | | | | +--------+---------+ + + + | 09/03/ | Office | Endocrinology | Cheryl Zee MD | | | 2020 | Visit | | [address] | | | | | | [address] [place] | | | | | | [phone] | | | | | | | | +--------+---------+ + + + documented as of this encounter Results Hepatic Function Panel (01/17/2019 2:54 PM PDT) + +---------+ + + + [...] +---------+ + + + | Total | 6.5 | 5.7 - 8.2 g/dL | [facility] | | | Protein | | | [facility] | | | | | | [facility] | | | | | | [facility] - | | | | | | LABORATORY | | + +---------+ + + + | Albumin | 4.3 | 3.2 - 4.8 g/dL | [facility] | | | | | | [facility] | | | | | | [facility] | | | | | | C[facility] - | | | | | | LABORATORY | | + +---------+ + + + | AST | 23 | 0 - 34 U/L | [facility] | | | | | | [facility] | | | | | | [facility] | | | | | | CENTER - | | | | | | LABORATORY | | + +---------+ + + + | ALT | 33 | 10 - 49 U/L | [facility] | | | | | | [facility] | | | | | | [facility] | | | | | | CENTER - | | | | | | LABORATORY | | + +---------+ + + + | Alkaline | 76 | 46 - 116 U/L | [facility] | | | Phosphatase | | | [facility] | | | | | | MEDICAL | | | | | | CENTER - | | | | | | LABORATORY | | + +---------+ + + + | Globulin | 2.2 | 2.1 - 3.8 g/dL | [facility] [...] | + +---------+ + + + | Bilirubin, | 0.20 | 0.00 - 0.30 | [facility] | | | Direct | | mg/dl | [facility] | | | | [...] [address] | [place] | [phone] | | [facility] | | [address] | | | - LABORATORY | | | | + + + + + Lipid Panel (01/17/2019 2:54 PM PDT) + +-------+ + + + | Component | Value | Ref Range | Performed | Pathologist | | | | | At | Signature | + +-------+ + + + | Triglycerid | 113 | <=150 mg/dL | [facility] | | | es | | | [facility] | | | | | | [facility] | | | | | | CENTER - | | | | | | LABORATORY | | + +-------+ + + + | Cholesterol | 141 | <=200 mg/dL | [facility] | | | | | | [facility] | | | | | | MEDICAL | | | | | | CENTER - | | | | | | LABORATORY | | + +-------+ + + + | HDL | 48 | 40 - 60 mg/dL | [facility] | | | | | | [facility] | | | | | | MEDICAL | | | | | | CENTER - | | | | | | LABORATORY | | + +-------+ + + + | Chol/HDL | 2.9 | | [facility] | | | Ratio | | | [facility] | | | | | | MEDICAL | | | | | | CENTER - | | | | | | LABORATORY | | + +-------+ + + + | LDL, | 70 | <=130 mg/dL | [facility] | | [...] [address] | [place] | [phone] | | [facility] | | [address] | | | - LABORATORY | | | | + + + + + documented in this encounter Visit Diagnoses + + | Diagnosis | + + | Hyperlipidemia, unspecified hyperlipidemia type - Primary | + + | Stage 3 chronic kidney disease (HCC) | + + | Secondary adrenal insufficiency (HCC) Glucocorticoid deficiency | + + | Localized edema Edema | + + documented in this encounter"
--- OUTSIDE RECORDS SUMMARY | ~2020-01-04 | XMS | Encounter Summary ---
Demographics + + + | Address | [address] | | | [place] [address] | + + + | Home Phone [...] Author | [facility] | | | and [place] [...] [place], | | | | | [place] [address] | | + + + + + | Ryan Vogt | ECON | Unknown | | + + + + + | Rob Vogt | ECON | Unknown | | + + + + + Care Team Providers + +------+ + | Care Range Master Name | Role | Phone | + +------+ + | Abrahan Samaniego MD | PCP | | + +------+ + Encounter Details +--------+ + + + + | Date | Type | Department | Care Team | Description | +--------+ + + + + | 09/09/ | Hospital | [facility] | Conversion | Osteosclerotic | | 2011 | Encounter | [address] | Transaction, | myeloma | | | | [place] [place], [place] | Provider Unknown | | | | | [address] | [phone] | | | | | [phone] | | | +--------+ + + + [...] | | | | | | [place] [address] | | | | | | [phone] | | | | | | | | +--------+---------+ + + + | 09/03/ | Office | Endocrinology | Cheryl Zee MD | | | 2020 | Visit | | [address] | | | | | | [address] [place], [place] | | | | | | [phone] | | | | | | | | +--------+---------+ + + + documented as of this encounter Procedures + +--------+ + + + | Procedure Name | Priori | Date/Time | Associated Diagnosis | Comments | | | ty | | | | + +--------+ + + + | CT HEAD WO CONTRAST | Routin | 09/10/2011 | | Results for this | | | e | 4:25 PM | | procedure are in the | | | | PDT | | results section. | + +--------+ + + + documented in this encounter Results CT Head wo Contrast (09/10/2011 4:25 PM PDT) + + | Specimen | + + | | + + + + + | Impressions | Performed At | + + + | 1. No intracranial abnormality. 2. Right sphenoidal and | | | posterior ethmoidal sinus disease without mucocele or bony | | | destruction. 3. No definite bony erosion is demonstrated. Nonspecific | | | mild ill-defined sclerosis in the right frontal bone. 4. Stealth | | | protocol preoperative images. RADIA Dictated by: [email or web address] | | | NAKUL TUCKER Dictated: 09/11/2011 10:27:20 Job: [id number] | | + + + + + + | Narrative | Performed At | + + + | HEAD CT WITH STEALTH PROTOCOL WITHOUT CONTRAST CT HEAD W/O CONTRAST | | | DATE: Sep 10, 2011 4:28:00 PM. HISTORY: Skull tumor. For | | | skull biopsy on 09/28/2011. Preoperative assessment with Stealth | | | protocol. COMPARISONS: None available. There was outside MRI study | | | which was not available. TECHNIQUE: 1 mm thin-slice axial CT | | | imaging performed from the foramen magnum to the vertex. Stealth | | | protocol was used. Iodinated IV contrast: None. FINDINGS: | | | Parenchyma: No evidence for intracranial hemorrhage, mass or | | | infarction. Kidd-white matter differentiation is distinct. | | | Extra-axial Spaces: Normal for age. No masses, hemorrhage or fluid | | | collections identified. No hydrocephalus or midline shift. | | | Sinuses: The right sphenoidal sinus is completely filled with soft | | | tissue attenuation material without bony erosion or abnormal | | | expansion. Mild mucosal thickening is also seen in the right posterior | | | ethmoidal sinus. The other paranasal sinuses and mastoids are clear. | | | Bones: There is no fracture or bony destruction. Small well | | | defined roundish lucent areas are seen in the skull bone probably due | | | to normal venous lakes. There is an area of nonspecific mild | | | sclerosis in the right frontal bone. No endosteal erosion. No | | | extraosseous soft tissue mass. Soft Tissues: Normal. | | + + + + + | Procedure Note | + + | Vishnu, Rad Conversion - 11/19/2018 8:[address] WITH STEALTH PROTOCOL WITHOUT | | CONTRASTCT HEAD W/O CONTRAST DATE: Sep 10, 2011 4:28:00 PM. HISTORY: Skull tumor. For | | skull biopsy on 09/28/2011. Preoperativeassessment with Stealth protocol. COMPARISONS: | | None available. There was outside MRI study which was notavailable. TECHNIQUE: 1 mm | | thin-slice axial CT imaging performed from the foramenmagnum to the vertex. Stealth | | protocol was used. Iodinated IVcontrast: None. FINDINGS:Parenchyma: No evidence for | | intracranial hemorrhage, mass orinfarction. Kidd-white matter differentiation is | | distinct. Extra-axial Spaces: Normal for age. No masses, hemorrhage or fluidcollections | | identified. No hydrocephalus or midline shift. Sinuses: The right sphenoidal sinus is | | completely filled with softtissue attenuation material without bony erosion or | | abnormalexpansion. Mild mucosal thickening is also seen in the right posteriorethmoidal | | sinus. The other paranasal sinuses and mastoids are clear. Bones: There is no fracture | | or bony destruction. Small well definedroundish lucent areas are seen in the skull bone | | probably due tonormal venous lakes. There is an area of nonspecific mild sclerosis inthe | | right frontal bone. No endosteal erosion. No extraosseous softtissue mass. Soft | | Tissues: Normal. IMPRESSION: 1. No intracranial abnormality.2. Right sphenoidal and | | posterior ethmoidal sinus disease withoutmucocele or bony destruction.3. No definite | | bony erosion is demonstrated. Nonspecific mildill-defined sclerosis in the right frontal | | bone.4. Stealth protocol preoperative images. RADIA Dictated by: [email or web address] NAKUL Ritter | | FUDictated: 09/11/2011 10:27:20 Job: [id number] | |collections identified. No hydrocephalus or midline shift. | | | |Sinuses: The right sphenoidal sinus is completely filled with soft | |tissue attenuation material without bony erosion or abnormal | |expansion. Mild mucosal thickening is also seen in the right posterior | |ethmoidal sinus. The other paranasal sinuses and mastoids are clear. | | | |Bones: There is no fracture or bony destruction. Small well defined | |roundish lucent areas are seen in the skull bone probably due to | |normal venous lakes. There is an area of nonspecific mild sclerosis in | |the right frontal bone. No endosteal erosion. No extraosseous soft | |tissue mass. | | | |Soft Tissues: Normal. | | | |IMPRESSION: | | | |1. No intracranial abnormality. | |2. Right sphenoidal and posterior ethmoidal sinus disease without | |mucocele or bony destruction. | |3. No definite bony erosion is demonstrated. Nonspecific mild | |ill-defined sclerosis in the right frontal bone. | |4. Stealth protocol preoperative images. 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
--- OUTSIDE RECORDS SUMMARY | ~2020-01-04 | XMS | Encounter Summary ---
Demographics + + + | Address | [address] | | | [place] [address] | + + + | Home Phone [...] [facility]ly [facility] | | | [...] [place], | | | | | [place] [address] | | + + + + + | Ryan Vogt | ECON | Unknown | | + + + + + | Rob Vogt | ECON | Unknown | | + + + + + Care Team Providers + +------+ + | Care Chief Scientist Name | Role | Phone | + +------+ + | Abrahan Samaniego MD | PCP | | + +------+ + Reason for Visit + + + | Reason | Comments | + + + | Follow-up | | + + + | Hyperlipidemia | | + + + | Hypertension | | + + + Evaluate & [...] | | | Required | | effort ([facility]) | [address] | [address] | | | | | | [address] | [place] | | | | | | [place] | [place] | | | | | | [place] [address] | [address] | | | | | | Phone: | Phone: | | | | | | [phone] | [phone] | | | | | | Fax: | Fax: | | | | | | [phone] | [phone] | +--------+ + + + + + Encounter Details +--------+---------+ + + + | Date | Type | Department | Care Team | Description | +--------+---------+ + + + | 07/25/ | Office | [facility] | Renetta, | Hyperlipidemia, | | 2020 | Visit | CARDIOLOGY [address] | [address] | unspecified | | | | [place], | [place], | hyperlipidemia type | | | | [place] [address] | [place] [address] | (Primary Dx); | | | | [phone] | [phone] | Essential | | | | | | hypertension | +--------+---------+ + + + Social History [...] + + + | Blood Pressure | 120/64 | 07/25/2019 12:35 PM | | | | | PST | | + + + + + | Pulse | 76 | 07/25/2019 12:35 PM | | | | | PST | | + + + + + | Temperature | - | - | | + + + + + | Respiratory Rate | 16 | 07/25/2019 12:35 PM | | | | | PST | | + + + + + | Oxygen Saturation | - | - | | + + + + + | Inhaled Oxygen | - | - | | | Concentration | | | | + + + + + | Weight | 71.8 kg (158 lb 4.6 | 07/25/2019 12:35 PM | | | | oz) | PST | | + + + + + | Height | 160 cm (5' 3") | 07/25/2019 12:35 PM | | | | | PST | | + + + + + | Body Mass Index | 28.04 | 07/25/2019 12:35 PM | | | | | PST | | + + + + + documented in this encounter Patient Instructions Patient Instructions Margo Shields, Galvanizing Pot Runner - 07/25/2019 12:45 PM PST1. Kacy nue with current effective medical regiment, no medication changes. 2. She will follow up in 1 year for office visit, or sooner with concerns. She will have an ECG at her follow up visit and She will have fasting labs prior to visit for lipid profil e, CMP and CBC, if not done prior by another provider. documented in this encounter Progress Notes Kimberly Jackson ARNP - 07/25/2019 12:45 PM PSTFormatting of this note might be differen t from the original. PATIENT NAME: Oliva Vogt : 1950: AGE: 69 y.o. PRIMARY CARE: Abrahan Samaniego MD OUTPATIENT FOLLOW UP VISIT Date of Service: 07/25/2019 HISTORY OF PRESENT ILLNESS: Oliva Vogt is a 69 y.o. 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 She is being seen today for her 6 month follow up. She was last seen 01/18/2019 at which time continue taking aspirin 81 mg once daily. Decrease Amlodipine to (1/2 tablet) 2.5 mg once daily by mouth, she will watch her blood pr essure and chest pain. If her chest pain continues we will switch amlodipine to Isosorbide M ononitrate for the chest pain. Increase atorvastatin to 40 mg once daily by mouth. She will increase her exercise by taking a brisk walk for 30 minuets 5 days a week. She will follow u p in 6 months for office visit, or sooner with concerns. Since that time, she was seen by PCP on 04/24/2019 for wellness exam. She has had a good energy level. She has not been very active due to recent right knee cristopher amol. But she will start walking for exercise on August 05. She has not had any chest pain or discomfort at rest or with exertion. She has not noticed shortness of breath. She has not had any lightheadedness or dizziness. She has noted palpitations a few days ago, but an y more She has noticed mild swelling at ankles by the end of the day that is resolved in morning, which has been stable for her. She states she does not require a CPAP to sleep. MEDICAL, SURGICAL, AND PERSONAL HISTORY Past Medical, Surgical, Family, and Social History are reviewed in EPIC. CURRENT PROBLEMS Patient Active Problem List Diagnosis HIP PAIN Secondary hypothyroidism Hyperlipidemia Panhypopituitarism Chronic renal insufficiency, stage II (mild) OTHER AND UNSPECIFIED HYPERLIPIDEMIA OTHER DISEASES OF NASAL CAVITY AND SINUSES DUPUYTREN'S CONTRACTURE OSTEOARTHRITIS, KNEE Preventative health care Secondary adrenal insufficiency Cervicalgia Other congenital anomaly of spine Impaired mobility Hypokalemia due to loss of potassium Osteoporosis Frontal skull lesion Secondary hyperparathyroidism Localized edema Growth hormone deficiency Diplopia Complex tear of medial meniscus of right knee as current injury, initial encounter Right knee pain, unspecified chronicity Acute pain of right knee Guero syndrome Adverse effect of anesthesia 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 30 tablet 5 aspirin 325 mg tablet Take 1 tablet [...] No current facility-administered medications for this visit. ALLERGIES Allergies Allergen Reactions Succinylcholine Chloride Other (See Comments) Was told by previous anesthesiologist that she has pseudocholinesterase deficiency and no t to use it again. Does not recall having a dibucaine test. Does not think she was intubated /sedated for a prolonged period after her procedure. ROS Review of Systems Constitutional: Negative for malaise/fatigue. Respiratory: Negative for shortness of breath. Cardiovascular: Positive for palpitations (states had an episode a few days ago). Negative for chest pain and leg swelling. Neurological: Negative for dizziness and weakness. Lightheadedness = no OBJECTIVE: PHYSICAL EXAM BP 120/64 | Pulse 76 | Resp 16 | Ht 1.6 m (5' 3") | Wt 71.8 kg (158 lb 4.6 oz) | BMI 2 8.04 kg/m Physical Exam Constitutional: She is oriented to person, place, and time. She appears well-developed and well-nourished. No distress. Neck: JVD: no JVD. Cardiovascular: Normal rate and regular rhythm. Pulmonary/Chest: Effort normal. No respiratory distress. Musculoskeletal: Normal range of motion. General: Edema (mild bilateral edema in ankle area) present. Neurological: She is alert and oriented to person, place, and time. Gait normal. Psychiatric: She has a normal mood and affect. Her mood appears not anxious. She does not e xhibit a depressed mood. ECG: I personally independently reviewed ECG tracing during this visit (interpreted and ele led by another provider): Results for orders placed or performed in visit on 12/05/18 ECG 12 lead Result Value Ref Range INTERPRETATION TEXT Normal sinus rhythm Normal ECG When compared with ECG of 10-NOV-2018 11:07, No significant change was found Confirmed by LAURI DERAS MD ([id number]) on 12/05/2018 4:26:27 PM LAB RESULTS reviewed during visit today primarily from [facility]: LIPID Lab Results Component Value Date CHOL 120 07/24/2019 TRIG 107 07/24/2019 HDL 46 07/24/2019 LDL 53 07/24/2019 CHOLHDL 2.6 07/24/2019 LDLEX 166 (A) 05/27/2015 LDLEX 166 (A) 05/27/2015 HDLEX 53 05/27/2015 HDLEX 53 05/27/2015 TRIGEX 99 05/27/2015 TRIGEX 99 05/27/2015 CHOLEX 239 (A) 05/27/2015 CHOLEX 239 (A) 05/27/2015 CHEMISTRY Lab Results Component Value Date GLU 113 (H) 05/23/2019 GLUEX 93 05/27/2015 NA 141 05/23/2019 NAEX 141 05/27/2015 K 3.9 05/23/2019 KEX 4.0 05/27/2015 CL 106 05/23/2019 CLEX 109 05/27/2015 CO2 28 05/23/2019 CO2EX 27 05/27/2015 CALCIUM 9.9 05/23/2019 ALKPHOS 127 (H) 07/24/2019 AST 15 07/24/2019 ASTEX 17 05/27/2015 ALT 19 07/24/2019 ALTEX 22 05/27/2015 BILITOT 0.6 07/24/2019 CREA 0.93 05/23/2019 BUN 16 05/23/2019 EGFR 59 (L) 05/10/2019 EGFREX 68.0 05/27/2015 CREEX 0.84 05/27/2015 HEMATOLOGY Lab Results Component Value Date WBC 8.1 11/10/2018 HGB 13.9 05/23/2019 HCT 43.1 11/10/2018 PLT 296 11/10/2018 Lab Results Component Value Date TSH 0.01 (L) 01/10/2019 BNP 38 11/24/2018 I reviewed records from [facility] for office visit on 01/18/2019 wh ich is summarized in the HPI. RESULTS- I reviewed reports from [facility]: No results found. Above data and testing is reviewed this visit; testing below is historical data unless othe rwise specified. ASSESSMENT: 1.Classic angina, suggesting myocardial ischemia A. Patient has been having chest pain/chest pressure and shortness of breath on exertion, relieved by restfor the last six months but was not aconcernto her,until her passing in August2018.[place] then seen at [facility] emergency department on 11/10/18, for chest pain and shortness of breath on exertion. She was started o n metoprolol and notice the chest pain was resolved a but made her feel like "she is in slow motion". B. Echocardiogram on 12/20/18 shows left ventricle is normal in size and function, ejection fraction is estimated at 62%, there is grade 1 LV diastolic dysfunct ion, mildly thickened mitral valve with trace insufficiency, structurally normal tricuspid v alve with mild insufficiency and peak velocity consistent with normal pulmonary pressures, Estephania Villaseñor MD. C. LHC on 12/26/18 shows mild coronary artery disease. Left main artery is free of disease. LAD has mild diffuse disease. Left circumflex has mild diffuse disease. RCA i s an essential normal artery. There is a left dominatecirculation, normal LV systolic fun ction with an EF of 65%, systemic blood pressure is normal, there was successful hemostasis with a TR hemostatic band, by Lauri Deras MD. D. Today, 07/25/2019, she states she has not had any angina episodes or no dyspn ea. She had an episode of palpitations a few days ago but not any since then. She is in clas s I of the [place] [employer] functional class. 2.Essential hypertension A.Today, 07/25/2019, her blood pressure is well controlled. 3.Mixed hyperlipidemia A. Today, 07/25/2019, she remains on atorvastatin. 4.Stage III chronic kidney disease, secondary toeclampsia in 1971. A.Today, 07/25/2019, eGFR 60 on 05/23/2019 5. Hypothyroidism: A. Patient is on levothyroxine 100 mcg. 6. 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 Severe toxemia , hemorrhage and DIC with p breezy-vaginal and retroperitoneal hematoma and hypotensive episodes with secondary anemia, and acute tubular necrosis with secondary azotemia on April 01, 1974 at [facility]. B.She is on prednisone6 mgand somatropin 5.8 mg. PLAN: 1. Continue with current effective medical regiment, no medication changes. 2. She will follow up in 1 year for office visit, or sooner with concerns. She will have an ECG at her follow up visit and She will have fasting labs prior to visit for lipid profil e, CMP and CBC, if not done prior by another provider. Margo Laguerre, Galvanizing Pot Runner am acting as a scribe on behalf of, and in the prese nce of PARKER Huffman. - Margo Shields, Galvanizing Pot Runner 07/25/2019 12:50 PM IKimberly ARNP, personally performed the services described in this documentati on, as scribed in my presence and it is both accurate and complete. -PARKER Huffman 07/25/2019 Portions of this chart may have been created with [employer] voice recognition software. Occasi onal wrong-word or sound-alike substitutions may have occurred due to the inherent lópez itations of voice recognition software. Please read the chart carefully and recognize, using context, where these substitutions have occurred. documented in th is encounter Plan of Treatment +--------+---------+ + + + | Date | Type | Specialty | Care Team | Description | +--------+---------+ + + + | 04/29/ | Office | Internal Medicine | Abrahan Samaniego MD | | 2019 | Visit | | [address] [place] [address] | | | | | | [place] | | | | | | [address] | | | | | | | | +--------+---------+ + + + | 07/25/ | Office | Cardiology | Renetta, | | | 2020 | Visit | | [address] | | | | | | [place], | | | | | | [place] [address] | | | | | | [phone] | | | | | | | | +--------+---------+ + + + | 09/03/ | Office | Endocrinology | Cheryl Zee MD | | | 2020 | Visit | | [address] | | | | | | [address] [place] | | | | | | [id number] | | | | | | | | +--------+---------+ + + + documented as of this encounter Visit Diagnoses + + | Diagnosis | + + | Hyperlipidemia, unspecified hyperlipidemia type - Primary | + + | Essential hypertension Unspecified essential hypertension | + + documented in this encounter
--- OUTSIDE RECORDS SUMMARY | ~2020-01-04 | XMS | Encounter Summary ---
Demographics + + + | Address | [address] | | | [place] [address] | + + + | Home Phone [...] | Author | [facility] [place] | | | and [place] | + + + | Organization | [facility] [place] | | | and [...] [place], | | | | | [place] [address] | | + + + + + | Ryan Vogt | ECON | Unknown | | + + + + + | Rob Vogt | ECON | Unknown | | + + + + + Care Team Providers + +------+ + | Care Culinary Arts Instructor Name | Role | Phone | + [...] Description | +--------+--------+ + + + | 03/06/ | Refill | [facility] | Abrahan Samaniego MD | Medication Refill | | 2014 | | MEDICINE [address] [place] [address] | [address] [place] [address] | | | | | [place], | [place] | | | | | [place] [address] | [address] | | | | | [phone] | | | +--------+--------+ + + + [...] | 2019 | Visit | | [address] [place] [address] | | | | | | [place] | | | | | | [address] | | | | | | | | +--------+---------+ + + + | 07/25/ | Office | Cardiology | Renetta, | | | 2020 | Visit | | [address] | | | | | | [place] | | | | | | [place] [address] | | | | | | [phone] | | | | | | | | +--------+---------+ + + + | 09/03/ | Office | Endocrinology | Cheryl Zee MD | | | 2020 | Visit | | [address] [place] | | | | | | [address] [place] | | | | | | [address] | | | | | | | | +--------+---------+ + + + documented as of this encounter Visit Diagnoses Not on filedocumented in this encounter"
--- OUTSIDE RECORDS SUMMARY | ~2020-01-04 | XMS | Encounter Summary ---
Demographics + + + | Address | [address] | | | [place] [address] | + + + | Home Phone [...] Author | [facility] [place] | | | and [...] [place], | | | | | [place] [address] | | + + + + + | Ryan Vogt | ECON | Unknown | | + + + + + | Rob Vogt | ECON | Unknown | | + + + + + Care Team Providers + +------+ + | Care Farmworker Poultry Name | Role | Phone | + +------+ + | Abrahan Samaniego MD | PCP | | + +------+ + Reason for Visit + + + | Reason | Comments | + + + | Follow-up | right hand mallet fracture doi 09/07/16 | + + + Encounter Details +--------+---------+ + + + | Date | Type | Department | Care Team | Description | +--------+---------+ + + + | 10/21/ | Office | [facility] [place] | Bernard Mcelroy, | Mallet finger of | | 2017 | Visit | ORTHOPEDIC SURGERY | MD [address] | right finger(s) | | | | [address] [place] | [place] | (Primary Dx) | | | | [place] | [id number] | | | | | [address] | | | | | | [phone] | | | +--------+---------+ + + + [...] Temperature | 36.3 C (97.4 F) | 10/21/2016 12:53 PM | | | | | PDT [...] + | Weight | 66.7 kg (147 lb) | 10/21/2016 12:53 PM | | | | | PDT | | + + + + + | Height | 161.3 cm (5' 3.5") | 10/21/2016 12:53 PM | | | | | PDT | | + + + + + | Body Mass Index | 25.63 | 10/21/2016 12:53 PM | | | | | PDT | | + + + + + documented in this encounter Progress Notes Bernard Mcelroy MD - 10/21/2016 1:07 PM PDTPatient returns follow-up right hand ring mall et finger She is 6 weeks out and doing very well Exam out of the splint shows no extensor lag No swan neck I showed her stretching exercises to work on further flexion and I advise using the splint in extension at nighttime for the next 3 weeks to minimize the lag that will occur She will return as needed documented in this encounter Plan of Treatment +--------+---------+ + + + | Date | Type | Specialty | Care Team | Description | +--------+---------+ + + + | 04/29/ | Office | Internal Medicine | Abrahan Samaniego MD | | | 2020 | Visit | | [address] [place] [address] | | | | | | [place] | | | | | | [address] | | | | | | | | +--------+---------+ + + + | 07/25/ | Office | Cardiology | Renetta, | | | 2020 | Visit | | [address] | | | | | | [place], | | | | | | [place] [address] | | | | | | [phone] | | | | | | | | +--------+---------+ + + + | 09/03/ | Office | Endocrinology | Cheryl Zee MD | | | 2020 | Visit | | [address] [place] | | | | | | [address] [place] | | | | | | [phone] | | | | | | | | +--------+---------+ + + + documented as of this encounter Visit Diagnoses + + | Diagnosis | + + | Mallet finger of right finger(s) - Primary | + + documented in this encounter
--- OUTSIDE RECORDS SUMMARY | ~2020-01-04 | XMS | Encounter Summary ---
Demographics + + + | Address | [address] | | | [place] [address] | + + + | Home Phone [...] Author | [facility] [place] | | | and [place] [...] [place], | | | | | [place] [address] | | + + + + + | Ryan Vogt | ECON | Unknown | | + + + + + | Rob Vogt | ECON | Unknown | | + + + + + Care Team Providers + +------+ + | Care Shade Maker Name | Role | Phone | [...] Rehabilitatio | [address] | [address] | [place] | | | | n | (ICD-9-CM) - | [address]RE[address] | [place], | | | | | Cervicalgia | [place], | [place] [address] | | | | | Procedures | [place] [address] | Phone: | | | | | pt pako | Phone: | [phone] | | | | | | [phone] | Fax: | | | | | | Fax: | [phone] | | | | | | [phone] | | +--------+ + + + + + Encounter Details +--------+---------+ + + + | Date | Type | Department | Care Team | Description | +--------+---------+ + + + | 08/02/ | Office | [facility] | Abrahan Samaniego MD | Impaired mobility | | 2015 | Visit | MED CTR THERAPY PT | [address] [facility] | (Primary Dx); | | | | OP [address] | [place], [place] | Cervicalgia; Other | | | | [place], [place] | [address] | congenital anomaly | | | | [address] | | of spine | | | | [phone] | Katie Barrett, | | | | | | FIELD MECHANIC/SITE LEAD [address] | | | | | | [place], [place] | | | | | | [address] | | | | | | [phone] | | | | | | | [...] as of this encounter Progress Notes Katie Barrett, FIELD MECHANIC/SITE LEAD - 08/02/2014 2:49 PM PSTFormatting of this note might be different f rom the original. [facility] THERAPY PT OP [address] [place] [address] Physical Therapy Daily Treatment Note Date: 08/02/2014 Patient Information Patient Name: Oliva Vogt Date of : 1950 Age: 64 y.o. Encounter Diagnoses Code Name Primary? 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 Date of Onset: 05/07/14 Referring Provider: Abrahan Samaniego MD Rehab Precautions Office Visit from 07/16/2014 in [facility]ER[facility] PT OP Rehab Precautions Precautions None Start Time: 1430 Stop time: 1515 Duration: 45 minutes Timed Treatment Codes: 45 minutes # of PT Visits to Date: 4 Subjective: Pain is far less than when we started PT. Turning to the right is the greatest tightness. N otes driving looking over the shoulder has gotten better. "ROM is so much better." More I do the stretches during the day the pain decreases. Wake up in the mornings is when she is the tightness and most painful. Pt had questions on the prone HEP. Pain Assessment Pain Rating Pre Assessment: 3 Location: 3/10 with right neck rotation. At rest with looking forward 0/10. Objective: Manual Treatment: STM and trigger point release to the right side upper traps, rhomboid. Scapular retraction x 10 Went over questions regarding HEP: Prone with "I"s and "T"s, 2x10. Cueing for focus on scapular stabilization. Prone with chin retraction for 10 reps, 10 second hold. Hold at this time. Cont with moises jewell in sitting. Added: TrA contraction Education: micro breaks while at the computer. Body mechanics related to keeping objects cl ose to body. Postural awareness education. Handouts were given to pt along with written inst ructions. Pillows on lap while reading/watching TV. Hydration education. Encouraged pt to stand up f rom desk every 45 min or less. Pt was given small ball for self releases at home to the scapular region. Assessment: Pt was receptive to information given to her today. Plan: Manual therapy, strengthening. Electronically signed by: Katie Barrett PTA, 08/02/2014 16:31 Patient Name: Oliva Vogt/: 1950/ documented in this encounter Plan of Treatment +--------+---------+ + + + | Date | Type | Specialty | Care Team | Description | +--------+---------+ + + + | 04/29/ | Office | Internal Medicine | Abrahan Samaniego MD | | | 2019 | Visit | | [address] [place] [address] | | | | | | [place] | | | | | | [address] | | | | | | | | +--------+---------+ + + + | 07/25/ | Office | Cardiology | Renetta, | | | 2020 | Visit | | [address] | | | | | | [place], | | | | | | [place] [address] | | | | | | [phone] | | | | | | | | +--------+---------+ + + + | 09/03/ | Office | Endocrinology | Cheryl Zee MD | | | 2020 | Visit | | [address] | | | | | | [address] [place] | | | | | | [id number] | | | | | | | | +--------+---------+ + + + documented as of this encounter Visit Diagnoses + + | Diagnosis | + + | Impaired mobility - Primary Other ill-defined conditions | + + | Cervicalgia | + + | Other congenital anomaly of spine | + + documented in this encounter
--- OUTSIDE RECORDS SUMMARY | ~2020-01-04 | XMS | Encounter Summary ---
Demographics + + + | Address | [address] | | | [place] [address] | + + + | Home Phone [...] Author | [facility] | | | and [...] [place], | | | | | [place] [address] | | + + + + + | Ryan Vogt | ECON | Unknown | | + + + + + | Rob Vogt | ECON | Unknown | | + + + + + Care Team Providers + +------+ + | Care Spike Machine Feeder Name | Role | Phone | + +------+ + | Abrahan Boogie MD | PCP | | + +------+ + Reason for Visit + + + | Reason | Comments | + + + | Nasal Congestion | HEAD COLD ON WEDNESDAY, HAS TO TAKE PREDNISONE DUE TO HER | | | PITUATARY GLAND NOT WORKING, DR BOOGIE WANTS HER TO GET COVID | | | TESTING, RM 6 | + + + Encounter Details +--------+---------+ + + + | Date | Type | Department | Care Team | Description | +--------+---------+ + + + | 09/14/ | Office | [facility] | Tru Watkins | Viral infection | | 2020 | Visit | CARE [address] | [address] | (Primary Dx) | | | | [place] | [address] [place] | | | | | [address] | [place] [address] | | | | | [phone] | [phone] | | | | | | | [...] + + + | Blood Pressure | 144/67 | 09/15/2019 9:17 AM | | | | | PDT | | + + + + + | Pulse | 66 | 09/15/2019 9:17 AM | | | | | PDT | | + + + + + | Temperature | 36.5 C (97.7 F) | 09/15/2019 9:17 AM | | | | | PDT | | + + + + + | Respiratory Rate | 12 | 09/15/2019 9:17 AM | | | | | PDT | | + + + + + | Oxygen Saturation | 97% | 09/15/2019 9:17 AM | | | | | PDT | | + + + + + | Inhaled Oxygen | - | - | | | Concentration | | | | + + + + + | Weight | 72 kg (158 lb 11.7 | 09/15/2019 9:17 AM | | | | oz) | PDT | | + + + + + | Height | 160 cm (5' 3") | 09/15/2019 9:17 AM | | | | | PDT | | + + + + + | Body Mass Index | 28.12 | 09/15/2019 9:17 AM | | | | | PDT | | + + + + + documented in this encounter Patient Instructions Patient Instructions Tru Watkins ARNP - 09/15/2019 8:45 AM Chris campbell for Preventing the Spread of Coronavirus Disease 2019 (COVID-19) in Homes and Residential Communities Update: August 12, 2019 (This guidance provides clarification regarding evaluation for home isolation and a new sec tion with information regarding preventative steps for household members, intimate partners, and caregivers in a nonhealthcare setting of a person with symptomatic, laboratory-confirme d COVID-19.) This interim guidance is based on what is currently known about the epidemiology of COVID-1 9 and the transmission of other viral respiratory diseases. CDC will update this interim lety dance as needed and as additional information becomes available. Coronaviruses are a large family of viruses, some causing illness in people and others that circulate among animals, including camels, cats, and bats. Rarely, animal coronaviruses can infect people exposed to infected animals, and then spread among people, as has been seen w ith MERS-CoV and SARS-CoV, and likely now with SARS-CoV-2, the virus that causes COVID-19. T his interim guidance may help prevent this virus from spreading among people in their homes and in other residential communities. Prevention steps for People with confirmed or suspected COVID-19 (including persons under investigation) who do not need to be hospitalized and People with confirmed COVID-19 who were hospitalized and determined to be medically stable to go home Your healthcare provider and public health staff will evaluate whether you can be cared for at home. If it is determined that you do not need to be hospitalized and can be isolated at home, you will be monitored by staff from your local or state health department. You should follow the prevention steps below until a healthcare provider or local or state health depa rtment says you can return to your normal activities. Stay home except to get medical care You should restrict activities outside your home, except for getting medical care. Do not g o to work, school, or public areas. Avoid using public transportation, ride-sharing, or taxi s. Separate yourself from other people and animals in your home People: As much as possible, you should stay in a specific room and away from other people in your home. Also, you should use a separate bathroom, if available. Animals: You should restrict contact with pets and other animals while you are sick with CO VID-19, just like you would around other people. Although there have not been reports of pet s or other animals becoming sick with COVID-19, it is still recommended that people sick wit h COVID-19 limit contact with animals until more information is known about the virus. When possible, have another member of your household care for your animals while you are sick. If you are sick with COVID-19, avoid contact with your pet, including petting, snuggling, bein g kissed or licked, and sharing food. If you must care for your pet or be around animals whi le you are sick, wash your hands before and after you interact with pets and wear a facemask . Call ahead before visiting your doctor If you have a medical appointment, call the healthcare provider and tell them that you have or may have COVID-19. This will help the healthcare provider s office take steps to keep other people from getting infected or exposed. Wear a facemask You should wear a facemask when you are around other people (e.g., sharing a room or vehicl e) or pets and before you enter a healthcare provider s office. If you are not able to wea r a facemask (for example, because it causes trouble breathing), then people who live with y ou should not stay in the same room with you, or they should wear a facemask if they enter y our room. Cover your coughs and sneezes Cover your mouth and nose with a tissue when you cough or sneeze. Throw used tissues in a l ined trash can; immediately wash your hands with soap and water for at least 20 seconds or c lean your hands with an alcohol-based hand suspension cord tier that contains 60 to 95% alcohol, coveri ng all surfaces of your hands and rubbing them together until they feel dry. Soap and water should be used preferentially if hands are visibly dirty. Clean your hands often Wash your hands often with soap and water for at least 20 seconds or clean your hands with an alcohol-based hand suspension cord tier that contains 60 to 95% alcohol, covering all surfaces of yo ur hands and rubbing them together until they feel dry. Soap and water should be used prefer entially if hands are visibly dirty. Avoid touching your eyes, nose, and mouth with unwashed hands. Avoid sharing personal household items You should not share dishes, drinking glasses, cups, eating utensils, towels, or bedding wi th other people or pets in your home. After using these items, they should be washed thoroug hly with soap and water. Clean all high-touch surfaces everyday High touch surfaces include counters, tabletops, doorknobs, bathroom fixtures, toilets, rusty paige, keyboards, tablets, and bedside tables. Also, clean any surfaces that may have blood, s tool, or body fluids on them. Use a household cleaning spray or wipe, according to the label instructions. Labels contain instructions for safe and effective use of the cleaning produc t including precautions you should take when applying the product, such as wearing gloves an d making sure you have good ventilation during use of the product. Monitor your symptoms Seek prompt medical attention if your illness is worsening (e.g., difficulty breathing). Be fore seeking care, call your healthcare provider and tell them that you have, or are being e valuated for, COVID-19. Put on a facemask before you enter the facility. These steps will he lp the healthcare provider s office to keep other people in the office or waiting room fro m getting infected or exposed. Ask your healthcare provider to call the local health [facility] ent at [phone]. Persons who are placed under active monitoring or facilitated self-carter toring should follow instructions provided by their local health department or occupational health professionals, as appropriate. If you have a medical emergency and need to call 911, notify the dispatch personnel that yo u have, or are being evaluated for COVID-19. If possible, put on a facemask before emergency medical services arrive. Discontinuing home isolation Patients with confirmed COVID-19 should remain under home isolation precautions until the r isk of secondary transmission to others is thought to be low. The decision to discontinue ho me isolation precautions should be made on a [id number] basis, in consultation with health care providers and [facility] and local health departments. As of the current time, this require s confirmation negative results from both throat and nasopharyngeal swabs on two consecutive collections at least 24 hours apart. Recommended precautions for household members, intimate partners, and caregivers in a nonhe althcare setting1 of A patient with symptomatic laboratory-confirmed COVID-19 or A patient under investigation Household members, intimate partners, and caregivers in a nonhealthcare setting may have cl ose contact2 with a person with symptomatic, laboratory-confirmed COVID-19 or a person under investigation. Close contacts should monitor their health; they should call their healthcar e provider right away if they develop symptoms suggestive of COVID-19 (e.g., fever, cough, s hortness of breath) Close contacts should also follow these recommendations: ? Stay home unless otherwise directed by the local health department. ? Make sure that you understand and can help the patient follow their healthcare provider s instructions for medication(s) and care. You should help the patient with basic needs in the home and provide support for getting groceries, prescriptions, and other personal needs. ? Monitor the patient s symptoms. If the patient is getting sicker, call his or her [facility] provider and tell them that the patient has laboratory-confirmed COVID-19. This will h elp the healthcare provider s office take steps to keep other people in the office or wait ing room from getting infected. Ask the healthcare provider to call the local or [facility] department for additional guidance. If the patient has a medical emergency and you need to call 911, notify the dispatch personnel that the patient has, or is being evaluated for COV ID-19. ? Household members should stay in another room or be from the patient as much as possible. Household members should use a separate bedroom and bathroom, if available. ? Prohibit visitors who do not have an essential need to be in the home. ? Household members should care for any pets in the home. Do not handle pets or other anima ls while sick. For more information, see COVID-19 and Animals. ? Make sure that shared spaces in the home have good air flow, such as by an air conditione r or an opened window, weather permitting. ? Perform hand hygiene frequently. Wash your hands often with soap and water for at least 2 0 seconds or use an alcohol-based hand suspension cord tier that contains 60 to 95% alcohol, covering a ll surfaces of your hands and rubbing them together until they feel dry. Soap and water shou ld be used preferentially if hands are visibly dirty. ? Avoid touching your eyes, nose, and mouth with unwashed hands. ? You and the patient should wear a facemask if you are in the same room. ? Wear a disposable facemask and gloves when you touch or have contact with the patient s blood, stool, or body fluids, such as saliva, sputum, nasal mucus, vomit, urine. o Throw out disposable facemasks and gloves after using them. Do not reuse. o When removing personal protective equipment, first remove and dispose of gloves. Then, im mediately clean your hands with soap and water or alcohol-based hand suspension cord tier. Next, remove and dispose of facemask, and immediately clean your hands again with soap and water or alco hol-based hand suspension cord tier. ? Avoid sharing household items with the patient. You should not share dishes, drinking gla sses, cups, eating utensils, towels, bedding, or other items. After the patient uses these i tems, you should wash them thoroughly (see below Wash laundry thoroughly ). ? Clean all high-touch surfaces, such as counters, tabletops, doorknobs, bathroom fix tures, toilets, phones, keyboards, tablets, and bedside tables, every day. Also, clean any s urfaces that may have blood, stool, or body fluids on them. o Use a household cleaning spray or wipe, according to the label instructions. Labels conta in instructions for safe and effective use of the cleaning product including precautions you should take when applying the product, such as wearing gloves and making sure you have good ventilation during use of the product. ? Wash laundry thoroughly. o Immediately remove and wash clothes or bedding that have blood, stool, or body fluids on them. o Wear disposable gloves while handling soiled items and keep soiled items away from your b gabino. Clean your hands (with soap and water or an alcohol-based hand suspension cord tier) immediately a fter removing your gloves. o Read and follow directions on labels of laundry or clothing items and detergent. In gener al, using a normal laundry detergent according to washing machine instructions and dry thoro ughly using the warmest temperatures recommended on the clothing label. ? Place all used disposable gloves, facemasks, and other contaminated items in a lined cont ainer before disposing of them with other household waste. Clean your hands (with soap and w ater or an alcohol-based hand suspension cord tier) immediately after handling these items. Soap and wa ter should be used preferentially if hands are visibly dirty. ? Discuss any additional questions with your state or local health department or healthcare provider. For more helpful tips visit our Coronavirus site Stay Informed [facility] of Health and Agriculture Department Chair [place] Department of Public Health [place] Department of Public Health and Human Services [facility] Public Health Division [facility] documented in this encounter Progress Notes Tru Watkins ARNP - 09/15/2019 8:45 AM PDTFormatting of this note might be di fferent from the original. Subjective: Oliva is a 69 y.o. female who comes in complaining of Nasal Congestion (HEAD COLD ON , HAS TO TAKE PREDNISONE DUE TO HER PITUATARY GLAND NOT WORKING, DR BOOGIE WANTS HER TO GET COVID TESTING, RM 6) . HPI HPI Patient presents to the urgent care with 2-day history of "head cold". She was in contact with her PCP and he advised that she come in to get coronavirus testing. Patient is reporti ng that she is having some nasal congestion, congestion of her ears. She denies fevers, chi lls, cough, shortness of breath, GI symptoms. Patient has adrenal insufficiency and is on d aily prednisone, she increases the prednisone whenever she gets ill so she currently is on t he increased dose of prednisone. Patient works at the [employer] at the [employer], she do es not have patient contact but is in that setting. Patient does not have any known sick co ntacts at this time. Patient's medications, allergies, past medical, surgical, social and family histories were reviewed and updated as appropriate. Review of Systems Constitutional: Negative for chills and fever. HENT: Positive for congestion. Respiratory: Negative for cough. Skin: Negative for rash. All other systems reviewed and are negative. Objective: BP 144/67 | Pulse 66 | Temp 36.5 C (97.7 F) (Temporal) | Resp 12 | Ht 1.6 m (5' 3") | Wt 72 kg (158 lb 11.7 oz) | SpO2 97% | No | BMI 28.12 kg/m Physical Exam Vitals signs and nursing note reviewed. Constitutional: General: She is not in acute distress. Appearance: Normal appearance. She is not toxic-appearing. HENT: Head: Normocephalic. Right Ear: Hearing, tympanic membrane, ear canal and external ear normal. No middle ear effusion. No mastoid tenderness. Tympanic membrane is not perforated, erythematous, retracte d or bulging. Left Ear: Hearing, tympanic membrane, ear canal and external ear normal. No middle ear effusion. No mastoid tenderness. Tympanic membrane is not perforated, erythematous, retracte d or bulging. Mouth/Throat: Pharynx: Oropharynx is clear. Uvula midline. No pharyngeal swelling or oropharyngeal exu date. Cardiovascular: Rate and Rhythm: Normal rate. Heart sounds: No murmur. No gallop. Pulmonary: Effort: Pulmonary effort is normal. No respiratory distress. Breath sounds: No stridor. No wheezing, rhonchi or rales. Musculoskeletal: Normal range of motion. Skin: General: Skin is warm. Capillary Refill: Capillary refill takes less than 2 seconds. Neurological: General: No focal deficit present. Mental Status: She is alert and oriented to person, place, and time. Motor: No weakness. No results found for this or any previous visit (from the past 24 hour(s)). Assessment and Plans: 1. Viral infection Coronavirus (COVID-19) NAAT The patient appears to have a viral infection that as she reports is starting to improve an d resolve. Due to her adrenal insufficiency and the daily prednisone use, this does put her at greater risk for coronavirus. She is swab for the coronavirus and sample sent to the al b. She is expected be at home on quarantine until we get the results, 2 to 3 days. We will contact her with the results and advise of the next steps as far as any return to work. Jorden singh is provided with a work note. The patient verbalized understanding of these instructi ons and agrees with current treatment plan Return if symptoms worsen or fail to improve. Electronically signed by PARKER Lainez at DATE/TIME: 09/15/2019 9:50 AM This note was dictated using Parsely voice recognition software. Occasional wrong- word or s ound-alike substitutions may have occurred due to the inherent limitations of voice recognit ion software. Please read the chart carefully and recognize, using context, where these subs titutions have occurred. Electronically signed by PARKER Portillo at 0 9:50 AM PDTdocumented in this encounter Plan of Treatment +--------+---------+ + + + | Date | Type | Specialty | Care Team | Description | +--------+---------+ + + + | 04/29/ | Office | Internal Medicine | Abrahan Boogie MD | | | 2019 | Visit | | [facility] | | | | | | [place] | | | | | | [id number] | | | | | | | | +--------+---------+ + + + | 07/25/ | Office | Cardiology | Renetta, | | | 2020 | Visit | | PARKER Harris [address] | | | | | | [place] | | | | | | [place] [address] | | | | | | [phone] | | | | | | | | +--------+---------+ + + + | 09/03/ | Office | Endocrinology | Cheryl Zee MD | | | 2020 | Visit | | [address] | | | | | | [address] [place] | | | | | | [address] | | | | | | | | +--------+---------+ + + + documented as of this encounter Procedures + +--------+ + + + | Procedure Name | Priori | Date/Time | Associated Diagnosis | Comments | | | ty | | | | + +--------+ + + + | CORONAVIRUS | Routin | 09/15/2019 | Viral infection | Results for this | | (COVID-19) NAAT | e | 9:46 AM | | procedure are in the | | | | PDT | | results section. | + +--------+ + + + documented in this encounter Results Coronavirus (COVID-19) NAAT (09/15/2019 9:46 AM PDT) + + + + + + | Component | Value | Ref Range | Performed | Pathologist | | | | | At | Signature | + + + + + + | SARS-CoV-2, | Not DetectedComment: | Not Detected | REFERENCE | | | NAAT | Testing was performed | | LAB [facility] | | | (COVID-19) | using the johnson(R) | | - [facility] | | | | SARS-CoV-2 test.This | | | | | | test was developed and | | | | | | its performance | | | | | | characteristics | | | | | | determinedby [facility] | | | | | | Laboratories. This test | | | | | | has not been FDA cleared | | | | | | orapproved. This test | | | | | | has been authorized by | | | | | | FDA under an Emergency | | | | | | UseAuthorization (EUA). | | | | | | This test is only | | | | | | authorized for the | | | | | | duration oftime the | | | | | | declaration that | | | | | | circumstances exist | | | | | | justifying | | | | | | theauthorization of the | | | | | | emergency use of in | | | | | | vitro diagnostic tests | | | | | | fordetection of | | | | | | SARS-CoV-2 virus and/or | | | | | | diagnosis of COVID-19 | | | | | | infectionunder section | | | | | | 564(b)(1) of the Act, 21 | | | | | | U.S.C. 360bbb-3(b)(1), | | | | | | unlessthe authorization | | | | | | is terminated or revoked | | | | | | sooner. | | | | + + + + + + + + | Specimen | + + | Tissue - Entire | | nasopharynx (body | | structure) | + + + + + | Narrative | Performed At | + + + | Performed at: 01 - [facility] [place] [address], [place], [place] | REFERENCE LAB | | [phone] [employer] Packaging: Preston Chaidez MD, Phone: [phone] | [facility] | + + + + + + + + | Performing | Address | City/State/Zipcode | Phone Number | | Organization | | | | + + + + + | REFERENCE LAB | [id number] | [place], [place] | [phone] | | [facility] | [place] | [address] | | + + + + + documented in this encounter Visit Diagnoses + + | Diagnosis | + + | Viral infection - Primary Unspecified viral infection, in conditions classified | | elsewhere and of unspecified site | + + documented in this encounter Additional Health Concerns [...]
--- OUTSIDE RECORDS SUMMARY | ~2020-01-04 | XMS | Encounter Summary ---
Demographics + + + | Address | [address] | | | [place] [address] | + + + | Home Phone | | + + + | Preferred Language | Unknown | + + + | Marital Status | | + + + | Restorationist Affiliation | 1027 | + + + | Race | Unknown | + + + | Ethnic Group | Unknown | + + + Author + + + | Author | [facility] | | | and [place] | + + + | Organization | [facility] | | | and [place] | + + + | Address | Unknown | + + + | Phone | Unavailable | + + + Support + + + + + | Name | Relationship | Address | Phone | + + + + + | Cristofer Vgot | ECON | [address] | | | | | [place], | | | | | [place] [address] | | + + + + + | Ryan Vogt | ECON | Unknown | | + + + + + | Rob Vogt | ECON | Unknown | | + + + + + Care Team Providers + +------+ + | Care Assistance Representative Name | Role | Phone | + +------+ + | Abrahan Samaniego MD | PCP | | + +------+ + Encounter Details +--------+ + + + + | Date | Type | Department | Care Team | Description | +--------+ + + + + | 09/27/ | Hospital | [facility] | Gonzalo Brooks, | | | 2011 - | Encounter | RUTHY REYES | [address] [facility] | | | | | [address] | [facility] [id number] | | | 09/28/ | | [place] | | | 2011 | | [address] | [address] | | | | | [phone] | [phone] | | | | | | | [...] + + documented as of this encounter Discharge Summaries Trudy Cazares - 10/27/2011 1:48 PM PDT Discharge Summaries by Trudy Cazares ARNP at 10/27/11 3488 Author: Trudy Cazares ARNP Service: (none) Author Type: Nurse Practitioner Filed: 10/27/11 2301 Date of Service: 10/27/11 1348 Status: Addendum Financial Accounting Manager: Trudy Cazares ARNP (Nurse Practitioner) Related Notes: Original Note by Trudy Cazares ARNP (Nurse Practitioner) filed at 0 10/27/11 3303 Cosigner: Gonzalo Brooks MD at 10/28/11 0700 Neurosurgery Discharge Summary Note Patient: Oliva Vogt Admission Date: 09/28/2011 Discharge Date: 09/29/2011 PCP: Abrahan Samaniego Other Significant Providers: none Principal Diagnosis: Right calvarial lesion (osteoma) Secondary Diagnoses: Patient Active Problem List Diagnoses Date Noted Frontal skull lesion 09/10/2011 Discharge Medications: Discharge Medication List as of 09/29/2011 8:36 AM START taking these medications Details hydrocodone-acetaminophen (AKA VICODIN) 5-500 mg Oral Tab Take 0.5-1 Tabs by mouth every fo ur hours as needed for Pain.0.5-1 Tab, Q4H PRN Starting 09/29/2011, Until Discontinued, Disp- 10 Tab, R-0, Oral, Normal Cortisone 25 mg Oral Tab Take 2 tablets with lunch and with dinner today then resume your p rednisone tomorrow morningDisp-4 Tab, R-0, Normal CONTINUE these medications which have NOT CHANGED Details predniSONE (AKA DELTASONE) 5 mg Oral Tab Take 6 mg by mouth every morning with breakfast. 6 mg, QAM W/BREAKFAST, Until Discontinued, Oral, Historical Med cephaLEXin (AKA KEFLEX) 500 mg Oral Cap Take 500 mg by mouth every six hours.500 mg, Q6H St arting 09/23/2011, Until Discontinued, Oral, Historical Med mupirocin (AKA BACTROBAN) 2 % Top Oint Apply to nares BID. Start 2 days prior to surgery an d continue taking for 7 days after surgery.Disp-22 g, R-0, e-Transmit levothyroxine (AKA SYNTHROID) 100 mcg Oral Tab Take 100 mcg by mouth every day. 100 mcg, D AILY, Until Discontinued, Oral, Historical Med CALCIUM ORAL Take 1,200 mg by mouth every day. 1,200 mg, DAILY, Until Discontinued, Oral, Historical Med ERGOCALCIFEROL, VITAMIN D2, (VITAMIN D ORAL) Take 1,000 mg by mouth every day.1,000 mg, MAHSA LY, Until Discontinued, Oral, Historical Med Allergies: Succinylcholine Procedures/Significant Test Results 09/28/2011 Excisional biopsy right frontal skull lesion; Frameless cranial extradural naviga tion; Methacrylate tranioplasty Consults: none Hospital Course: Patient was seen in Dr. Brooks's clinic for evaluation of a right calvarial lesion found i ncidentally on an MRI scan during a pituitary follow-up. Dr. Brooks recommended biopsy of t he lesion and patient was admitted for elective procedure. She tolerated the procedure without complications, please see dictated op note for full rep ort. She was to have been discharged on day of surgery but remained in-house overnight due t o nausea and vomiting. She was kept on IV fluids until she was able to tolerate food and flu ids. She was neurologically intact. Her incision was clean and dry with intact juni. On post op day one, she was ambulating without problem, voiding well, tolerating a general diet, and pain was well-controlled on tylenol. She was felt to be medically stable and ready for discharge home on post op day one. She remains neurologically intact. Diet: General Activity: See Craniotomy discharge instruction sheet Instructions and Follow-up (including pending studies and recommendations): 1. Call [facility] office with any questions or concerns at [phone] (RN line ) or at [phone] (after hours line). 2. See Craniotomy Discharge instruction sheet for additional information regarding activity , care of the incision, signs of problems, etc. 3. Juni out post operative day 7-10. Call Gladys at [phone] to schedule appointment to have these removed or your primary physician may remove them. 4. Take medications as directed. See Discharge Medication list for all current medications as some of your medications may have changed while you were hospitalized. 5. You may leave the incision open to air if there is no drainage. You may shower 48 hours after surgery and you do not need to cover the incision in the shower. Do not submerge incis ion in water (as in tub bathing) for 4 weeks. Avoid hair dyes for 6 weeks. 6. If you have any drainage or discharge from your incision, call the Nurse line at [phone]. 7. Follow up with your primary physician as needed or as directed by Dr. Gonzalo Brooks's sta ff. 8. Follow up with Dr.Marc Brooks's office in 4-6 weeks. Call Gladys to schedule appointmen t at [phone]. Condition on Discharge: Stable Code Status this admission: FULL CODE Time Spent: 30 minutes PARKER Ramires 13:48 10/27/2011 CC: Abrahan Samaniego MD documented in this encou nter Medications at Time of Discharge + + [...] documented as of this encounter Progress Notes Jeimy Gonzalez RN - 09/29/2011 7:38 PM PDTFormatting of this note might be different f rom the original. Progress Notes by Jeimy Gonzalez RN at 09/29/111937 Author: Jeimy Gonzalez RN Service: (none) Author Type: Registered Nurse Filed: 09/29/111939 Date of Service: 09/29/111937 Status: Signed Financial Accounting Manager: Jeimy Gonzalez RN (Registered Nurse) [facility] [place] Note Patient: Oliva Vogt Date: 09/29/2011 Discharge instructions were given to patient and significant other. Learner indicates und erstanding. Discharge medications were filled [facility] to be picked up by [facility] Time of discharge: 1130 Discharge to: home Mode of Transport: wheelchair Accompanied by: Transporter Understands d/c instructions and s/sx to call for, number to call for questions/concerns. P t noted slight redness isolated to back of R hand, no other signs of irritation or rash pres ent, pt will follow up if this worsens. Driven home by . Jeimy Gonzalez, RN, 09/29/2011 7:39 PM Gonzalo Blanton - 09/29/2011 6:26 AM PDT Progress Notes by Gonzalo Brooks MD at 09/29/11625 Author: Gonzalo Brooks MD Service: (none) Author Type: Physician Filed: 09/29/11625 Date of Service: 09/29/11625 Status: Signed Financial Accounting Manager: Gonzalo Brooks MD (Physician) Better this am Wound - bandage dry DC home today Suture removal at home onversion Transaction, Provider Unknown - 09/29/2011 5:33 AM PDTFormatting of this note might be different from th e original. Progress Notes by Laura Funes RN at 09/29/11532 Author: Larua Funes RN Service: (none) Author Type: Registered Nurse Filed: 09/29/1134 Date of Service: 09/29/11532 Status: Signed Financial Accounting Manager: Laura Funes RN (Registered Nurse) NSG Shift Summary Patient: Oliva Vogt A&O x4, neuro intact. Denies numbness/tingling, no visual field cuts noted. Nausea greatly improved after 8mg IV Zofran given, completely resolving overnight. C/o "pinching" pain to h ead where juni are located, pain adequately controlled w/ 650mg Tylenol as needed. Head i ncision intact, gauze covering part of incision, CDI, no drainage noted. Voiding adequately, ambulating w/ SBA, gait steady. Denies dizziness/lightheadedness when OOB. PO intake improv ing overnight, SL this AM. Will continue w/ current plan of care. Laura Funes RN, 09/29/2011 5:33 AM Lizy Jiménez RN - 09/28/2011 5:38 PM PDTFormatting of this note might be different from the or iginal. Progress Notes by Lizy Boyd RN at 09/28/111737 Author: Lizy Boyd RN Service: (none) Author Type: Registered Nurse Filed: 09/28/11 174 Date of Service: 09/28/111737 Status: Signed Financial Accounting Manager: Lizy Boyd RN (Registered Nurse) NS Arrival Note Patient: Oliva Vogt Arrival time: 1640 From: PACU to room 549east . Last VS: Temp: 36.2 C (97.2 F), BP: 138/73 mmHg, Heart Rate: 63 , Resp: 16 , SpO2: 99 %, O2 Liter Flow (1L or More): 1L/min, Weight: 67.767 kg (149 lb 6.4 oz). Admission Wt:67.76 7 kg (149 lb 6.4 oz) Skin intact: Yes PU Prevention Specialty Bed: NA Time of last pain med: SDS Lines and drains: iv Current IV: lactated Ringer's at 75cc/hr Current nursing problems: Nausea improving, drowsy Patient orientation: to call light to telephone and television to general hospital information to plan for the day Lizy Boyd RN, 09/28/2011 5:39 PM Trudy José - 0 09/28/2011 2:08 PM PDT Patient Instructions by Trudy Cazares ARNP at 09/28/11 1408 Author: Trudy Cazares ARNP Service: (none) Author Type: Nurse Practitioner Filed: 09/29/11 0810 Date of Service: 09/28/111407 Status: Addendum Financial Accounting Manager: Trudy Cazares ARNP (Nurse Practitioner) Related Notes: Original Note by Trudy Cazares ARNP (Nurse Practitioner) filed at 0 09/28/11 1409 Discharge Instructions: Craniotomy 1. Call [facility] office with any questions or concerns at [phone] (RN line ) or at [phone] (after hours line). 2. See Craniotomy Discharge instruction sheet for additional information regarding activity , care of the incision, signs of problems, etc. 3. Robinson out post operative day 7-10. Call Gladys at [phone] to schedule appointment to have these removed or your primary physician may remove them. 4. Take medications as directed. See Discharge Medication list for all current medications as some of your medications may have changed while you were hospitalized. 5. You may leave the incision open to air if there is no drainage. You may shower 48 hours after surgery and you do not need to cover the incision in the shower. Do not submerge inci sahil in water (as in tub bathing) for 4 weeks. Avoid hair dyes for 6 weeks. 6. If you have any drainage or discharge from your incision, call the Nurse line at [phone]. 7. Follow up with your primary physician as needed or as directed by Dr. Gonzalo Brooks's sta ff. 8. Follow up with Dr.Marc Brooks's office in 4-6 weeks. Call Gladys to schedule appointmen t at [phone]. Shaji Whiteside RN - 11:38 AM PDT Progress Notes by Shaji Worley, RN at 09/24/11 1138 Author: Shaji Worley RN Service: (none) Author Type: Registered Nurse Filed: 09/24/11 1146 Date of Service: 09/24/11 1138 Status: Signed Financial Accounting Manager: Shaji Worley, RN (Registered Nurse) PI completed, pt reports new redness under her nose, she went to a walk in clinic and was p rescribed Keflex for this, Gladys at Dr Brooks's office notified. documented in this enc ounter H&P Notes Conversion Transaction, Provider Unknown - 09/24/2011 11:53 AM PDTFormatting of this note m ight be different from the original. H&P by Gladys Barreto at 09/24/11 1153 Author: Gladys Barreto Service: (none) Author Type: (none) Filed: 09/24/11 115 Date of Service: 09/24/111152 Status: Signed Financial Accounting Manager: Gladys Barreto Cosigner: Gonzalo Brooks MD at 09/24/11 1522 September 10, 2011 Abrahan Samaniego M.D. [address] [place] [address] RE: Oliva Vogt : 1950 Dear Abrahan: Thank you for asking me to see Oliva Sin. CHIEF COMPLAINT: This 61-year-old female was seen at the request of Dr. Samaniego for evaluat ion of a skull lesion. 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 A nuclear scan was done, which showed increased uptake at the site of the skull le sahil, and subsequent MRI delineated potential progression of the lesion. She was seen in [facility], where a biopsy was recommended. She also had a second neurosurgical consu lt in [place], where a bifrontal craniotomy was recommended. With regard to the frontal lesio n, she has not had any headache, overlying inflammation, or localized pain. Her health is ot herwise excellent and there is no recent or past history of tumors. A recent mammogram was n egative. PHYSICAL EXAMINATION: Appearance: Healthy-appearing 61-year-old female. No clinical stigmata of hypopituitarism. HEENT: No masses or tenderness. No cervical adenopathy. NEUROLOGICAL EXAMINATION: Mental Status: Alert and oriented. Speech is fluent. Cranial Nerves: Cranial nerve II: Pupils are equal and reactive to light. Visual garcía are full. Cranial nerves III, IV, : Extraocular movements are full. No nystagmus. Cranial ner ve V: Light touch and pin sensation intact bilaterally. Masseter strength 5/5. Cranial nerve VII: Facial movement normal. Cranial nerve VIII: Hearing is grossly normal bilaterally. Property Manager nial nerve IX, X: Palate elevate symmetrically. Gag intact. Cranial nerve XII: Tongue midlin e. Motor: Normal muscle bulk, tone, and strength throughout. No pronator drift seen. Sensory: Normal appreciation movements are performed well bilaterally. Coordination: Rapid alternating movements are performed well bilaterally. Gait: Gait and station are normal. Able to walk on heels, toes, and in tandem. Reflexes: Deep tendon reflexes are 2+ and symmetrical throughout, with downgoing toes bilat erally. RADIOGRAPHIC STUDIES: I reviewed MRI and CT scan from April and May of 2011, and fo [facility] MRI from July 2011. The CT scan shows an osteosclerotic lesion, which measures ap proximately 1 x 2 cm in the right frontal skull anterior to the coronal suture. I do not catarino reciate any other bony lesions. The MRI scans show the frontal calvarial lesion, which appea rs to be involving the inner table. There is no intracranial mass or associated dural enhanc ement, or overlying soft tissue swelling. There is a soft tissue abnormality in the right fr ontal sinus, but I do not think that this represents a pathologic lesion and it has not hall ged. The right frontal skull lesion is not significantly different, although it was not as w ell visualized in the earlier scan. IMPRESSION AND RECOMMENDATIONS: I agree that this lesion merits biopsy, primarily because i t is metabolically active. The differential includes Paget's disease or tumor, although the lack of significant progression over three months are against tumor. The biopsy is straight forward and can be done as an outpatient with assisted navigation. She wants to proceed with biopsy and we will make arrangements for this in a convenient time. I spent 30 minutes in direct contact with the patient, greater than 50% of which was relate d to coordination of care. Sincerely yours, Gonzalo Brooks M.D. Senior Energy Market Coordinator [facility] [place] MRM:EQS cc: Debby Zee M.D. [address] [address] onver sahil Transaction, Provider Unknown - 09/16/2011 11:37 AM PDT H&P by Gladys Barreto at 09/16/11 8437 Author: Gladys Barreto Service: (none) Author Type: (none) Filed: 09/16/11 1137 Date of Service: 09/16/111136 Status: Signed Financial Accounting Manager: Gladys Barreto Cosigner: Gonzalo Brooks MD at 09/16/11 6212 PRE-OPERATIVE HISTORY AND PHYSICAL EXAM: 09/12/2011 RE: Oliva Vogt : 1950 ID & CHIEF COMPLIANT: 61 yo female with Right frontal calvarial lesion HISTORY OF PRESENT ILLNESS: Oliva is here today to seek an opinion on a right calvarial lesion found incidentally on an MRI scan during a pituitary follow-up. 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 Her migraine aura usua lly presented as cloudiness in her central vision. In March 2011 she began experiencing the aura without the headache. She saw her primary c are physician (Dr. Abrahan Samaniego) and symptoms were thought to be related to sinusitis. 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 Samaniego sent her to see Dr. Zee. An MRI pituitary was obtained as part of her exam and the scan demonstrated a right frontal calvarial lesion. Oliva was referred to a neurosurgeon, Dr. Sanchez. However, she was not able to get a timely ap pointment and went to see Dr. Chente Goel at [facility]. Dr. Manzanares recommended a biopsy of the le sahil. She then saw Dr. Sanchez who recommended a bifrontal craniotomy with removal of the lesion . She was concerned about the differing opinions and recommendations. She spoke with Dr. Abdulkadir goldstein who referred her to Dr. Brooks. She denies headaches, scalp tenderness, vision problems, numbness or weakness of the face, swallowing or voice problems, numbness or weakness of extremities, seizures or gait or rc ce problems. The patients' past social, medical, surgical history, as well as review of systems have bee n reviewed please refer to the [facility] History and Physical form that has been scanned in to our electronic medical record system in [facility]. REVIEW OF SYSTEMS: A complete review of systems is negative with the exception of the positives which are note d in the history of present illness. ROS is positive for no other complaints ROS is negative for all other complaints 10 point ROS is otherwise negative PAST SOCIAL HISTORY/HABITS: and has 2 adopted children. Lives in [place]. She does not smoke, drink or use recreational drugs. PAST MEDICAL HISTORY: Guero's syndrome Panhypopituitarism PAST SURGICAL HISTORY: Choleycystectomy D&C Endometrial biopsy BTL Excision of wrist ganglion CURRENT MEDICATIONS: Current Outpatient Prescriptions Medication Sig Dispense Refill predniSONE (AKA DELTASONE) 1 mg Oral Tab Take 1 mg by mouth every morning with breakf ast. Total of 6 mg qam predniSONE (AKA DELTASONE) 5 mg Oral Tab Take 5 mg by mouth every morning with breakf ast. Total of 6 mg qam levothyroxine (AKA SYNTHROID) 100 mcg Oral Tab Take 100 mcg by mouth every day. CALCIUM ORAL Take 1,200 mg by mouth every day. ERGOCALCIFEROL, VITAMIN D2, (VITAMIN D ORAL) Take 1,000 mg by mouth every day. ALLERGIES: Allergies Allergen Reactions Succinylcholine Other (Comment) Pt states does not have enough enzymes to recover PHYSICAL EXAMINATION: Blood pressure 134/94, pulse 80, temperature 36.1 C (96.9 F), resp. rate 14, height 16 0 cm (5' 3"), weight 67.223 kg (148 lb 3.2 oz). General: Awake, alert, appropriate for age, in no acute distress. NEUROLOGIC EXAMINATION: Mental Status: Awake and alert, fully oriented to person place and time, with normal atten tion, concentration and memory, and fluent, appropriate speech. Cranial Nerves: II: Visual acuity normal, no VF deficit to confrontation. III, IV, : Normal pupillary reflexes and intact extraocular movements without nystagmus. V: Intact symmetrical facial sensation. VII: Intact normal symmetrical facial motor movement. VIII: Hearing and balance intact. IX, X: Intact gag, swallow, and normal voice. XI: Sternocleidomastoid, trapezius function intact. XII: Tongue midline with normal movements. Reflexes Normal deep tendon reflexes in upper and lower extremities. Sensory: Normal sensory Motor: Normal bulk, tone and contour with 5/5 power in all major muscle groups of BUE and BLE. No pronator drift. Gait stable. Coordination intact. CV: S1 S2 regular rate. No rubs, murmurs or gallops. LUNGS: Clear to auscultation bilaterally. EXT: Peripheral pulses palpable X4. No edema. RADIOGRAPHIC STUDIES: Images reviewed with Dr. Brooks and Dr. Barney. MRI pituitary (04/24/11) - Empty sella turcica; Irregular calvarial lesion of right frontal bone. Nuclear Medicine bone scan body (05/07/11) - Abnormal uptake in right frontal bone in region of calvarial lesion. CT head without (07/20/11) - Osteosclerotic lesion in right frontal bone which corresponds t o lesion seen on MRI and Nuc Med scan. MRI brain +/- (07/21/11) - Osteosclerotic lesion in right frontal bone with possibly 2 satte lite lesions anterior and inferior to the right frontal bone. Possible breakthrough through the inner table of right frontal lesion. MEDICAL RECORDS: I have personally reviewed past medical records from outside medical visit s that indicate the patient has a right frontal calvarial lesion. IMPRESSION AND PLAN: Oliva is a 61 year old female presenting for evaluation of a right fro ntal calvarial lesion. This patient was seen in clinic with Dr. Brooks who recommends biops y of the lesion. The procedure along with risks and benefits were described in detail and Nini cross's questions were answered. She wishes to proceed with surgery. PARKER Hendricks seen with Gonzalo Brooks MD CC: Abrahan Samaniego [address] [facility] [place] [address] CC: Debby Zee MD Endocrinology, Diabetes and metabolism [address] [place] [address] docume nted in this encounter OR Notes OR PostOp - Gonzalo Brooks - 09/28/2011 11:08 AM PDTFormatting of this note might be diffe rent from the original. Post Procedure Note by Gonzalo Brooks MD at 09/28/11 2659 Author: Gonzalo Brooks MD Service: (none) Author Type: Physician Filed: 09/28/11 0449 Date of Service: 09/28/11 1191 Status: Signed Financial Accounting Manager: Gonzalo Brooks MD (Physician) NSR Brief Post Operative Note Post Procedure Note; See Dictated Operative Note for details ID: Oliva Vogt; 61 y.o. female Location: [facility]* Attending Gonzalo Brooks MD Hospital Day # 1 PCP Abrahan Samaniego Date of Surgery: 09/28/2011 Pre-op Diagnosis: Disorder of bone and cartilage, unspecified [733.90] (FRONTAL SKULL LESIO N ) Post-op Diagnosis: same Procedure: Excisional biopsy right frontal skull lesion; Frameless cranial extradural navig ation; Methacrylate tranioplasty Surgeon: Gonzalo Brooks MD Assistants: Jose Carlos Obando MD Anesthesia: General Indication Bone scan-positive osteosclerotic skull lesion Implants Used: Methacrylate cranioplasty Estimated Blood Loss: 50 cc IV Fluids: refer to anesthesia record Drains: None Counts: Instrument, sponge, and needle counts were correct prior to closure and at the conc lusion of the case. Disposition The patient was taken to Recovery Room in good condition. Complications No complications Gonzalo Brooks MD 11:08 AM 09/28/2011 documented in this encou nter Miscellaneous Notes Op Note - Gonzalo Brooks - 09/28/2011 11:58 AM PDTFormatting of this note might be differe nt from the original. Operative Report signed by Gonzalo Brooks MD at 09/30/11 0749 Author: Gonzalo Brooks MD Service: (none) Author Type: Physician Filed: 09/30/11 0749 Date of Service: 09/28/11 1158 Status: Signed Financial Accounting Manager: Gonzalo Brooks MD (Physician) OPERATION DATE: 09/28/2011 SURGEON: GONZALO BROOKS MD MENTAL HYGIENE CONSULTANT: JOSE CARLOS OBANDO MD PREOPERATIVE DIAGNOSIS: Right frontal skull lesion. POSTOPERATIVE DIAGNOSIS: Same. PROCEDURE: Excisional biopsy right frontal lesion; frameless cranial extradural navigation; methacrylate cranioplasty. ANESTHESIA: General endotracheal. OPERATIVE FINDINGS: Sclerotic bone lesion. OPERATIVE SPECIMENS: Bone lesion to pathology for permanent section. INDICATIONS: This woman had headaches and CT scan demonstrated a sclerotic lesion involving both tables of the calvarium in the right frontal region. A bone scan was positive in the area. It was elected to excise the lesion and send it for biopsy. PROCEDURE: After adequate general endotracheal anesthesia was obtained, intravenous antibiotics were given and the patient was positioned in the supine position with the head elevated and fixed in a Guy head waiter/waitress banquet. The patient was registered to the [employer] Frameless Navigation System and excellent accuracy was obtained. Using the Stealth System, the skin outline of the underlying skull lesion was drawn in the right frontal region just anterior to the coronal suture. The right frontal region was shaved, prepped and draped in the usual fashion, and a linear incision was made over the midbody of the lesion and carried through skin to galea. Skin was retracted and the position of the skull abnormality was again delineated using navigation. A circumferential excisional biopsy measuring approximately 2.5 x 2.5 cm was performed over the lesion using a high-speed drill, and the skull involving the lesion was removed as a single piece and sent for pathology. There were no apparent abnormalities in the skull or in the adjacent bone. Bleeding was controlled with Gelfoam and bipolar cautery to the dura. The wound was copiously irrigated with bacitracin solution and a methacrylate cranioplasty was placed over the skull defect. Once this had fully hardened, the galea was closed with interrupted 2-0 Vicryl and the skin was reapproximated with juni. The wound was sterilely dressed and the patient brought to the recovery room extubated in stable condition. ESTIMATED BLOOD LOSS: 50 mL. DRAINS: None. GONZALO BROOKS MD # [facility]/09/28/2011 11:58:28 [facility]/09/29/2011 16:10:36 [id number] cc: JOSE CARLOS OBANDO MD documented in this encou nter Plan of Treatment +--------+---------+ + + + | Date | Type | Specialty | Care Team | Description | +--------+---------+ + + + | 04/29/ | Office | Internal Medicine | Abrahan Samaniego MD | | | 2019 | Visit | | [address] | | | | | | [place] | | | | | | [address] | | | | | | | | +--------+---------+ + + + | 07/25/ | Office | Cardiology | Renetta, | | | 2020 | Visit | | [facility] [address] | | | | | | [place] | | | | | | [place] [address] | | | | | | [phone] | | | | | | | | +--------+---------+ + + + | 09/03/ | Office | Endocrinology | Cheryl Zee MD | | | 2020 | Visit | | [address] | | | | | | [address] [place] | | | | | | [id number] | | | | | | | | +--------+---------+ + + + documented as of this encounter Procedures + +--------+ + + + | Procedure Name | Priori | Date/Time | Associated Diagnosis | Comments | | | ty | | | | + +--------+ + + + | SURGICAL PATHOLOGY | Routin | 09/28/2011 | | Results for this | | EXAM | e | 12:00 AM | | procedure are in the | | | | PDT | | results section. | + +--------+ + + + documented in this encounter Results Surgical Pathology Exam (09/28/2011 12:00 AM PDT) + + + + + + | Component | Value | Ref Range | Performed | Pathologist | | | | | At | Signature | + + + + + + | SURGICAL | CASE: [id number]: | | EXTERNAL | | | | Olvia Vogt FINAL | | LAB | | | | DIAGNOSIS: Right | | | | | | Skull Lesion:Densely | | | | | | sclerotic trabecular | | | | | | bone, most consistent | | | | | | with osteoma. DIAGNOSIS | | | | | | COMMENT:The majority of | | | | | | the lesion consists of | | | | | | densely sclerotic bone. | | | | | | Someportions of the bone | | | | | | marrow show normal | | | | | | hematopoietic elements. | | | | | | Focally,there is | | | | | | increased mesenchymal | | | | | | cells, however, | | | | | | immunostains | | | | | | formeningioma (TAIWO and | | | | | | progesterone receptor) | | | | | | are negative. CD1a stain | | | | | | isnegative for | | | | | | Langerhans cell | | | | | | histiocytosis. Typical | | | | | | findings of | | | | | | Paget'sdisease are not | | | | | | encountered. The overall | | | | | | findings are most | | | | | | suggestive ofa osteoma. | | | | | | CLINICAL | | | | | | INFORMATION:Disorder of | | | | | | bone and cartilage, | | | | | | unspecified. 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 She also has | | | | | | a diagnosis of | | | | | | hypopituitarism and | | | | | | hasbeen on hormonal | | | | | | replacement since that | | | | | | time. Now presents with | | | | | | a 2 x 1cm right frontal | | | | | | skull lesion, which is | | | | | | osteosclerotic. The MRI | | | | | | shows afrontal calvarial | | | | | | lesion which appears to | | | | | | be involving the inner | | | | | | table.There is no | | | | | | intracranial mass or | | | | | | associated dural | | | | | | enhancement oroverlying | | | | | | soft tissue swelling. | | | | | | Differential diagnosis | | | | | | as per surgeonincludes | | | | | | Paget's disease or | | | | | | tumor. ICD-9 Code(s): | | | | | | 733.90. GROSS | | | | | | DESCRIPTION:Received in | | | | | | formalin, labeled | | | | | | "Sin, Oliva" and | | | | | | designated "rightskull | | | | | | lesion", is an | | | | | | unoriented 2.5 x 2 x 1.1 | | | | | | cm portion of skull | | | | | | bone.It is inked as | | | | | | follows: proximal margin | | | | | | - blue, yellow - | | | | | | corticalsurface | | | | | | (presumed toward dura) | | | | | | and orange - opposite | | | | | | cortical | | | | | | surface(presumed toward | | | | | | galeal). A 1 x 0.9 x 0.8 | | | | | | cm, red, ill-defined | | | | | | possiblemass is 0.1 cm | | | | | | from the peripheral | | | | | | margin, is at the dural | | | | | | corticalmargin and 0.4 | | | | | | cm from the galeal | | | | | | cortical margin. The | | | | | | uninvolved boneis | | | | | | unremarkable. Also | | | | | | received is a 1 x 0.8 x | | | | | | 0.2 cm aggregate of | | | | | | bonyfragments. Specimen | | | | | | is submitted in its | | | | | | entirety a follows: A1 - | | | | | | endmargin, | | | | | | perpendicular sectioned; | | | | | | A2-A4 - cross-sections | | | | | | of bone withprobable | | | | | | mass; A5 - opposite end | | | | | | margin, perpendicularly | | | | | | sectioned; A6-bony | | | | | | fragments. A1-A6 are | | | | | | submitted following | | | | | | decalcification.(es/cmc1 | | | | | | 0) MICROSCOPIC | | | | | | DESCRIPTION:The final | | | | | | diagnosis is based on a | | | | | | microscopic examination | | | | | | of thespecimen. | | | | | | IMMUNOHISTOCHEMISTRY | | | | | | STUDY:Deparaffinized | | | | | | sections of | | | | | | formalin-fixed tissue | | | | | | and the | | | | | | appropriatecontrols are | | | | | | incubated with a panel | | | | | | of antibodies or a | | | | | | specificfluorescein-labe | | | | | | led (oligo)nucleotide | | | | | | probe. Localization is | | | | | | via one orall of the | | | | | | following three systems: | | | | | | Alkaline Phosphatase | | | | | | multimer-basedmethod, | | | | | | indirect biotin | | | | | | streptavidin | | | | | | immunoperoxidase method, | | | | | | and biotinfree multimer | | | | | | immunoperoxidase | | | | | | method. Results are | | | | | | outlined in thetable | | | | | | below:Block A3 Antibody | | | | | | Result | | | | | | CommentEMA | | | | | | NegativePR | | | | | | [id number] Negative | | | | | | Impression:Interpreted | | | | | | by: Alex Cheng | | | | | | M.D.Comment: The | | | | | | immunohistochemical | | | | | | tests reported were | | | | | | developed and | | | | | | performancecharacteristi | | | | | | cs determined by | | | | | | [facility]. | | | | | | Some tests have | | | | | | notbeen cleared or | | | | | | approved by the U.S. | | | | | | Food and Drug | | | | | | Administration. TheFDA | | | | | | has determined that | | | | | | such clearance or | | | | | | approval is not | | | | | | necessary.These tests | | | | | | may be used for clinical | | | | | | purposes. They should | | | | | | not beregarded as | | | | | | investigational or for | | | | | | research use only. | | | | | | [facility] is | | | | | | certified under the | | | | | | Clinical Laboratory | | | | | | Improvement Amendments | | | | | | gy6941 (CLIA) as | | | | | | qualified to perform | | | | | | high complexity clinical | | | | | | laboratorytesting. | | | | | | Alex Cheng M.D. | | | | | | Electronically signed | | | | | | 10/05/2011 | | | | | | (Physician to | | | | | | Physician Only) | | | | + + + + + + + + | Specimen | + + | | + + + +---------+ + + | Performing | Address | City/State/Zipcode | Phone Number | | Organization | | | | + +---------+ + + | EXTERNAL LAB | | | | + +---------+ + + documented in this encounter Visit Diagnoses Not on filedocumented in this encounter
--- OUTSIDE RECORDS SUMMARY | ~2020-01-04 | XMS | Encounter Summary ---
Demographics + + + | Address | [address] | | | [place] [address] | + + + | Home Phone [...] | Author | [facility] | | | and [place] | [...] [place], | | | | | [place] [address] | | + + + + + | Ryan Vogt | ECON | Unknown | | + + + + + | Rob Vogt | ECON | Unknown | | + + + + + Care Team Providers + +------+ + | Care Correctional Therapy Teacher Name | Role | Phone | + +------+ + | Abrahan Samaniego MD | PCP | | + +------+ + Reason for Visit + + + | Reason | Comments | + + + | New Patient | | + + + Evaluate & Treat (Routine) + + + + + + + | Status | Reason | Specialty | Diagnoses / | Referred By | Referred To | | | | | Procedures | Contact | Contact | + + + + + + + | Authorized | Specialty | Plastic | Diagnoses | [facility], | [facility], | | | Services | Surgery | [facility] | Abrahan Cortez MD | Titus | | | Required | | contracture | [address] | MD [address] | | | | | | [address] | [place] | | | | | | [place], | [place], | | | | | | [place] [address] | [place] [address] | | | | | | Phone: | Phone: | | | | | | [phone] | [phone] | | | | | | Fax: | Fax: | | | | | | [phone] | [phone] | + + + + + + + Encounter Details +--------+---------+ + + + | Date | Type | Department | Care Team | Description | +--------+---------+ + + + | 05/23/ | Office | [facility] | Titus Triana | [facility] | | 2019 | Visit | SURGERY [address] | [address] | [address]ure (Primary | | | | [address], [place] | [address] [facility] | Dx) | | | | [address] | [place] [address] | | | | | [phone] | [phone] | | | | | | | [...] + + + | Blood Pressure | 140/72 | 05/23/2019 11:34 AM | | | | | PST | | + + + + + | Pulse | 81 | 05/23/2019 11:34 AM | | | | | PST | | + + + + + | Temperature | 36.3 C (97.4 F) | 05/23/2019 11:34 AM | | | | | PST | | + + + + + | Respiratory Rate | - | - | | + + + + + | Oxygen Saturation | 99% | 05/23/2019 11:34 AM | | | | | PST | | + + + + + | Inhaled Oxygen | - | - | | | Concentration | | | | + + + + + | Weight | 70.4 kg (155 lb 3.3 | 05/23/2019 11:34 AM | | | | oz) | PST | | + + + + + | Height | 160.5 cm (5' 3.19") | 05/23/2019 11:34 AM | | | | | PST | | + + + + + | Body Mass Index | 27.33 | 05/23/2019 11:34 AM | | | | | PST | | + + + + + documented in this encounter Progress Notes Titus Triana MD - 05/23/2019 11:20 AM PSTFormatting of this note might be differ ent from the original. [facility] ADMIT HISTORY AND PHYSICAL Primary Care Physician: Abrahan Samaniego PATIENT NAME: Oliva Vogt : 1950 TODAY'S DATE: 05/23/2019 CHIEF COMPLAINT: New Patient REASON FOR CONSULTATION: Dupuytren's contracture History OF PRESENT ILLNESS: I was asked by Dr. Samaniego to consult on this patient for Plast ic surgery. Oliva Vogt is a 69 y.o. female with (RHD) Dupuytren's contracture. 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 Patient states she been having Dupuytren's contracture for a long t windy. Patient had one of the cords injected with xiaflex about 2 years ago which improved the 5th digit extension, but then she noticed cords forming over the 3rd and 4th digits in the palm. Oceanography Professor and strength are okay but hasn't noticed nothing slips out. Middle right finger locks sometimes hears popping. Right ring finger had a dip at the DIP joint that wont straig htaba. Patient plays the organ and piano and her right hand is keeping her from reaching cord s. Denies pain, numbness, and tingling. Denies cortisone injections and surgeries. Opioid Risk Tool (ORT): Total Score 0 (05/23/19 1124) (0 to 3 = Low risk: 6% chance of developing problematic behaviors, 4 to 7 = Moderate risk: 28% chance of developing problematic behaviors, 8 or more = High risk: 90% chance of develop ing problematic behaviors.) PAST MEDICAL HISTORY Past Medical History: Diagnosis Date Adrenal [...] (HCC) diagnosed 1986, though probably began Tinnitus PAST SURGICAL HISTORY Past Surgical History: Procedure Laterality Date CARDIAC CATHERIZATION Left 12/26/2018 Procedure: CV LHC; Surgeon: Benigno Deras MD; Location: [facility] CV LAB CHOLECYSTECTOMY COLONOSCOPY 03/12/2014 COLONOSCOPY; Laterality: N/A; Surgeon: Shaji Thornton MD; Location: [facility] MEDICAL PROCEDU RE UNIT CYST REMOVAL Left 1969 ENDOMETRIAL BIOPSY 2006 Benign Skull Biopsy 09/28/2011 (Benign) TUBAL LIGATION Bilateral CURRENT MEDICATIONS Current Outpatient Medications Medication Sig [...] (See Comments) Hard to wake up FAMILY HISTORY Family history includes Abdominal aortic aneurysm in her brother; Arthritis in her father; Breast cancer in her sister; High blood pressure (age of onset: 84) in her mother; Lung canc er in her maternal grandfather and sister; Other (see comment) (age of onset: 74) in her fat her; Stroke in her father. SOCIAL HISTORY The pt reports that she has never smoked. She has never used smokeless tobacco. She report s that she does not drink alcohol or use drugs. REVIEW OF SYSTEMS Review of Systems Constitutional: Negative. HENT: Negative. Eyes: Negative. Respiratory: Negative. Cardiovascular: Positive for leg swelling. Gastrointestinal: Negative. Genitourinary: Negative. Musculoskeletal: Positive for joint pain. Joint Stiffness/Swelling Skin: Negative. Neurological: Negative. Endo/Heme/Allergies: Bruises/bleeds easily. Psychiatric/Behavioral: Negative. PHYSICAL EXAM BP 140/72 | Pulse 81 | Temp 36.3 C (97.4 F) (Temporal) | Ht 1.605 m (5' 3.19") | Wt 70.4 kg (155 lb 3.3 oz) | SpO2 99% | BMI 27.33 kg/m Wt. Admission: Weight: 70.4 kg (155 lb 3.3 oz) Physical Exam Constitutional: Appearance: Normal appearance. HENT: Head: Normocephalic and atraumatic. Eyes: Extraocular Movements: Extraocular movements intact. Pupils: Pupils are equal, round, and reactive to light. Neck: Musculoskeletal: Normal range of motion and neck supple. Cardiovascular: Rate and Rhythm: Normal rate and regular rhythm. Pulmonary: Effort: Pulmonary effort is normal. Breath sounds: Normal breath sounds. Musculoskeletal: Comments: Right hand: Dupuytren's fibroplasia in the palm forming cords over the 3rd, 4th and 5th rays Tightness but no contractures Full extension of the digits May be limiting full digital abduction No locking although mild residual tenderness 3rd FTS Left hand: Some mild fibroplasia in the palm but no contractures. Skin: General: Skin is warm and dry. Neurological: General: No focal deficit present. Mental Status: She is alert and oriented to person, place, and time. Psychiatric: Mood and Affect: Mood normal. Behavior: Behavior normal. ASSESSMENT & PLAN: 1. Dupuytren's contracture Bilateral Dupuytren's fibroplasia currently without contractures Probable R 3rd digit trigger finger but resolving The findings and treatment options were discussed. We discussed Dupuytrens and trigger fin gers, but currently the conditions have not progressed enough for additional injections or s urgery. She will monitor for now and follow up if it progresses. Electronically Signed by: Titus Triana MD CC: Abrahan Samaniego MD, Abrahan Samaniego MD documented in this encounter Plan of Treatment +--------+---------+ + + + | Date | Type | Specialty | Care Team | Description | +--------+---------+ + + + | 04/29/ | Office | Internal Medicine | Abrahan Samaniego MD | | | 2019 | Visit | | [address] [place] [address] | | | | | | [place] | | | | | | [id number] | | | | | | | | +--------+---------+ + + + | 07/25/ | Office | Cardiology | Renetta, | | | 2020 | Visit | | [address] | | | | | | [place], | | | | | | [place] [address] | | | | | | [phone] | | | | | | | | +--------+---------+ + + + | 09/03/ | Office | Endocrinology | Cheryl Zee MD | | | 2020 | Visit | | [address] | | | | | | [address] [place] | | | | | | [address] | | | | | | | | +--------+---------+ + + + documented as of this encounter Visit Diagnoses + + | Diagnosis | + + | Dupuytren's contracture - Primary Contracture of palmar fascia | + + documented in this encounter
--- OUTSIDE RECORDS SUMMARY | ~2020-01-04 | XMS | Encounter Summary ---
Demographics + + + | Address | [address] | | | [place] [address] | + + + | Home Phone | | + + + | Preferred Language | Unknown | + + + | Marital Status | | + + + | Anglican Affiliation | 1027 | + + + | Race | Unknown | + + + | Ethnic Group | Unknown | + + + Author + + + | Author | [facility] | | | and [place] | + + + | Organization | [facility] | | | [...] [place], | | | | | [place] [address] | | + + + + + | Ryan Vogt | ECON | Unknown | | + + + + + | Rob Vogt | ECON | Unknown | | + + + + + Care Team Providers + +------+ + | Care Mechanical Press Operator Name | Role | Phone | + +------+ + | Abrahan Samaniego MD | PCP | | + +------+ + Encounter Details +--------+ + + + + | Date | Type | Department | Care Team | Description | +--------+ + + + + | 09/09/ | Hospital | [facility] | Conversion | | | 2011 | Encounter | [facility] | Transaction, | | | | | [facility] [address] | Provider Unknown | | | | | [address] [place] [address] | [phone] | | | | | [place], [place] | | | | | | [address] | | | | | | [phone] | | | +--------+ + + + [...] | | | | | | [place] [address] | | | | | | [phone] | | | | | | | | +--------+---------+ + + + | 09/03/ | Office | Endocrinology | Cheryl Zee MD | | | 2020 | Visit | | [address] | | | | | | [address] [place], [place] | | | | | | [address] | | | | | | | | +--------+---------+ + + + documented as of this encounter Procedures + +--------+ + + + | Procedure Name | Priori | Date/Time | Associated Diagnosis | Comments | | | ty | | | | + +--------+ + + + | ECG 12 LEAD | Routin | 09/10/2011 | | Results for this | | | e | 3:18 PM | | procedure are in the | | | | PDT | | results section. | + +--------+ + + + documented in this encounter Results ECG 12 lead (09/10/2011 3:18 PM PDT) + + + + + + | Component | Value | Ref Range | Performed | Pathologist | | | | | At | Signature | + + + + + + | INTERPRETAT | - OTHERWISE NORMAL ECG | | EXTERNAL | | | ION TEXT | -SINUS RHYTHMnormal P | | LAB | | | | axis, V-rate 50-99EARLY | | | | | | PRECORDIAL R/S | | | | | | TRANSITIONQRS area | | | | | | positive in V2 | | | | + + + + + + + + | Specimen | + + | | + + + + + | Narrative | Performed At | + + + | Historically converted procedure from Telugu Epic environment | EXTERNAL LAB | + + + + +---------+ + + | Performing | Address | City/State/Zipcode | Phone Number | | Organization | | | | + +---------+ + + | EXTERNAL LAB | | | | + +---------+ + + documented in this encounter Visit Diagnoses Not on filedocumented in this encounter"
--- OUTSIDE RECORDS SUMMARY | ~2020-01-04 | XMS | Encounter Summary ---
Demographics + + + | Address | [address] | | | [place] [address] | + + + | Home Phone | | + + + | Preferred Language | Unknown | + + + | Marital Status | | + + + | Evangelical Affiliation | 1027 | + + + | Race | Unknown | + + + | Ethnic Group | Unknown | + + + Author + + + | Author | [facility] | | | and [place] | + + + | Organization | [facility] | | | [...] [place], | | | | | [place] [address] | | + + + + + | Ryan Vogt | ECON | Unknown | | + + + + + | Rob Vogt | ECON | Unknown | | + + + + + Care Team Providers + +------+ + | Care Manager Baby Name | Role | Phone | + +------+ + | Abrahan Samaniego MD | PCP | | + +------+ + Encounter Details +--------+ + + + + | Date | Type | Department | Care Team | Description | +--------+ + + + + | 10/05/ | Orders Only | [facility] | Cheryl Zee MD | Hypopituitarism | | 2019 | | [facility] [place] | [address] [place] | (HCC) (Primary Dx); | | | | ENDOCRINOLOGY [address] | [address] [place], [place] | Growth hormone | | | [address] | [address] | deficiency (HCC) | | | | [place] | | | | | | [address] | | | | | | [phone] | | | +--------+ + + + [...] documented as of this encounter Progress Notes Cheryl Zee MD - 10/05/2018 3:50 PM PDTPatient notifies me her cancer screening are up to date. 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 Plan- start low dose HGH and check IGF- 1, thyroid tests, electrolytes in 2 -3 months. We will check with insurance HGH coverageElectronically signed by Cheryl Zee MD at 06/2018 3:56 PM PDTdocumented in this encounter Plan of Treatment +--------+---------+ + + + | Date | Type | Specialty | Care Team | Description | +--------+---------+ + + + | 04/29/ | Office | Internal Medicine | Abrahan Samaniego MD | | | 2019 | Visit | | [address] [place] [address] | | | | | | [place] | | | | | | [address] | | | | | | | | +--------+---------+ + + + | 07/25/ | Office | Cardiology | Renetta, | | | 2020 | Visit | | [address] | | | | | | [place] | | | | | | [place] [address] | | | | | | [phone] | | | | | | | [...] - Primary Panhypopituitarism | + + | Growth hormone deficiency (HCC) Pituitary dwarfism | + + documented in this encounter"
--- OUTSIDE RECORDS SUMMARY | ~2020-01-04 | XMS | Encounter Summary ---
Demographics + + + | Address | [address] | | | [place] [address] | + + + | Home Phone | | + + + | Preferred Language | Unknown | + + + | Marital Status | | + + + | Catholic Affiliation | 1027 | + + + | Race | Unknown | + + + | Ethnic Group | Unknown | + + + Author + + + | Author | [facility] | | | and [place] | + + + | Organization | [facility] | | | [...] [place], | | | | | [place] [address] | | + + + + + | Ryan Vogt | ECON | Unknown | | + + + + + | Rob Vogt | ECON | Unknown | | + + + + + Care Team Providers + +------+ + | Care Logistics Planning Engineer Name | Role | Phone | [...] Description | +--------+--------+ + + + | 09/23/ | Refill | [facility] | Cheryl Zee MD | Medication Refill | | 2019 | | [place] | [address] [place] | | | | | ENDOCRINOLOGY [address] | [address] [place] | | | | | [address] [place] [address] | [phone] | | | | | [place] | | | | | | [address] | | | | | | [phone] | | | +--------+--------+ + + + [...] Miscellaneous Notes Telephone Encounter - Oliva Son, Rural Electrification Engineer - 09/26/2018 7:39 AM PDTFormkenan g of this note might be different from the original. Last Visit:09/19/18 Next Visit:12/21/18 Last fill of Medication:120 x 4 09/07/17 Requested Prescriptions Pending Prescriptions Disp Refills predniSONE (DELTASONE) 5 mg tablet [Pharmacy Med Name: PREDNISONE 5 MG TABLET] 120 tabl et 1 Sig: take 1 tablet by mouth daily MOST DAYS INCREASE TO 3 tablets daily for 3 days WHEN S ICK docume nted in this encounter Plan of Treatment +--------+---------+ + + + | Date | Type | Specialty | Care Team | Description | +--------+---------+ + + + | 04/29/ | Office | Internal Medicine | Abrahan Samaniego MD | | | 2019 | Visit | | [address] [place] [address] | | | | | | [place] | | | | | | [id number] | | | | | | | | +--------+---------+ + + + | 07/25/ | Office | Cardiology | Renetta, | | | 2020 | Visit | | [address] | | | | | | [place], | | | | | | [place] [address] | | | | | | [phone] | | | | | | | | +--------+---------+ + + + | 09/03/ | Office | Endocrinology | Cheryl Zee MD | | | 2020 | Visit | | [address] | | | | | | [address] [place] | | | | | | [phone] | | | | | | | [...]
--- OUTSIDE RECORDS SUMMARY | ~2020-01-04 | XMS | Encounter Summary ---
Demographics + + + | Address | [address] | | | [place] [address] | + + + | Home Phone [...] | [facility] | | | [...] [place], | | | | | [place] [address] | | + + + + + | Ryan Vogt | ECON | Unknown | | + + + + + | Rob Vogt | ECON | Unknown | | + + + + + Care Team Providers + +------+ + | Care Carding Supervisor Name | Role | Phone | + +------+ + | Abrahan Samaniego MD | PCP | | + +------+ + Reason for Visit + +--------+ + | Reason | Onset | Comments | | | Date | | + +--------+ + | Paperwork | 12/19/ | | | | 2016 | | + +--------+ + Encounter Details +--------+ + + + + | Date | Type | Department | Care Team | Description | +--------+ + + + + | 12/19/ | Telephone | [facility] | Abrahan Samaniego MD | Paperwork | | 2015 | | [address] | [address] [place] [address] | | | | | [place], | [place] | | | | | [place] [address] | [address] | | | | | [phone] | | | +--------+ + + + [...] Telephone Encounter - Christina Wilson LPN - 12/20/2015 3:17 PM PDTDoes patient need appt to complete FMLA form? (on your shelf)Electronically signed by Christina Wilson LPN at 2015 3:18 PM PDTTelephone Encounter - Brianne Horner - 12/20/2015 3:00 PM PDTContact/Dia r: Oliva Sin Contact Number: [phone] Provider/Nurse: Dr. Samaniego Reason for Call: Patient dropped off a shared leave medical certificate form to be filled o ut, patient would like to be called when ready for berry picker, form in basket Last Appointment: 12/02 Next Appointment: none documented in this encount er Plan of Treatment +--------+---------+ + + + | Date | Type | Specialty | Care Team | Description | +--------+---------+ + + + | 04/29/ | Office | Internal Medicine | Abrahan Samaniego MD | | | 2019 | Visit | | [address] [facility] | | [...] | | | | | | [place] [address] | | | | | | [phone] | | | | | | | | +--------+---------+ + + + | 09/03/ | Office | Endocrinology | Cheryl Zee MD | | | 2020 | Visit | | [address] | | | | | | [address] [place] [address] | | | | | [...]
--- OUTSIDE RECORDS SUMMARY | ~2020-01-04 | XMS | Encounter Summary ---
Demographics + + + | Address | [address] | | | [place] [address] | + + + | Home Phone [...] + | Author | [facility] | [...] [place], | | | | | [place] [address] | | + + + + + | Ryan Vogt | ECON | Unknown | | + + + + + | Rob Vogt | ECON | Unknown | | + + + + + Care Team Providers + +------+ + | Care Laborer Brooder Farm Name | Role | Phone | + +------+ + | Abrahan Samaniego MD | PCP | | + +------+ + Reason for Visit +---------+ + | Reason | Comments | +---------+ + | Post Op | right knee arthroscopy and debridement DOS 06/02/19 | +---------+ + Encounter Details +--------+---------+ + + + | Date | Type | Department | Care Team | Description | +--------+---------+ + + + | 06/27/ | Office | [facility] | Mitch Hopkins | S/P orthopedic | | 2020 | Visit | ORTHOPEDIC SURGERY | [address] | surgery, follow-up | | | | [address] [place] | [address] | exam (Primary Dx) | | | | [place] | [place] [address] | | | | | [address] | [phone] | | | | | [phone] | | | +--------+---------+ + + + [...] documented as of this encounter Progress Notes Mitch Hopkins PA-C - 06/27/2019 3:45 PM PSTFormatting of this note might be differe nt from the original. Name:Oliva Vogt Todays Date: 06/28/2019 Age: 69 y.o. PCP: Abrahan Samaniego MD Chief Complaint Patient presents with Post Op right knee arthroscopy and debridement DOS 06/02/19 SUBJECTIVE: Patient returns today for right knee arthroscopy and debridement performed on 06/02/2019. She contact her office because a stitch protruding through the portal incision site. She no hay otherwise she is doing well. No complaints OBJECTIVE: Ambulates without assistance of a walker and/or cane. Full weightbearing on the right lowe r extremity. The 3 portal incision sites at the right anterior knee have healed quite appro priately and well. Notes of complication or infection with a small piece of Monocryl that i s just a millimeter in length taken through the proximal medial incision site. This is easi ly grasped with forceps and cut. I then placed triple antibiotic ointment and a Band-Aid ov er the area. Full range of motion of the right knee. Imaging/Studies: No studies to review at this time. There were no vitals filed for this visit. ASSESSMENT/PLAN: 1. Right knee arthroscopy debridement, status postop A. Patient is healing appropriate well from right knee arthroscopy performed 1 month ago. She has significant reprieve of pain to which she is most pleased. She only returned toda y because a of a small Monocryl stitch that now was pushed out to the skin and palpable. I removed easily today without complication or problem. Cover with triple antibiotic ointment and Band-Aid. Recommend should anything change come back in my office otherwise follow-up in my office will be PRN. B. Patient is advised that if they have any questions, comments or concerns to contact our office. Electronically signed by: Mitch Hopkins PA-C 06/28/2019 3:33 PM If patient received pain medication today the prescription monitoring program was reviewed and patient appears to be in compliance with his program. This note was dictated using the [employer] voice recognition system. Minor errors in grammar may have occurred. documented in t his encounter Plan of Treatment +--------+---------+ + + + | Date | Type | Specialty | Care Team | Description | +--------+---------+ + + + | 04/29/ | Office | Internal Medicine | Abrahan Samaniego MD | | 2019 | Visit | | [address] [place] [address] | | | | | | [place] | | | | | | [address] | | | | | | | | +--------+---------+ + + + | 07/25/ | Office | Cardiology | Renetta, | | | 2020 | Visit | | [address] | | | | | | [place], | | | | | | [place] [address] | | | | | | [phone] | | | | | | | | +--------+---------+ + + + | 09/03/ | Office | Endocrinology | Cheryl Zee MD | | | 2020 | Visit | | [address] | | | | | | [address] [place] | | | | | | [phone] | | | | | | | | +--------+---------+ + + + documented as of this encounter Visit Diagnoses + + | Diagnosis | + + | S/P orthopedic surgery, follow-up exam - Primary Follow-up examination, following | | other surgery | + + documented in this encounter"
--- OUTSIDE RECORDS SUMMARY | ~2020-01-04 | XMS | Encounter Summary ---
Demographics + + + | Address | [address] | | | [place] [address] | + + + | Home Phone [...] | Author | [facility] | [...] [place], | | | | | [place] [address] | | + + + + + | Ryan Vogt | ECON | Unknown | | + + + + + | Rob Vogt | ECON | Unknown | | + + + + + Care Team Providers + +------+ + | Care Shoe Sticks Repairer Name | Role | Phone | + +------+ + | Abrahan Samaniego MD | PCP | | + +------+ + Reason for Visit + +--------+ + | Reason | Onset | Comments | | | Date | | + +--------+ + | Medication Refill | 03/29/ | | | | 2011 | | + +--------+ + Encounter Details +--------+--------+ + + + | Date | Type | Department | Care Team | Description | +--------+--------+ + + + | 03/29/ | Refill | [facility] | Abrahan Samaniego MD | Medication Refill | | 2011 | | [address] | [address] [facility] | | | | | [place], | [place] | | | | | [place] [address] | [phone] | | | | | [phone] | | | +--------+--------+ + + + [...] Telephone Encounter - Brissa Erickson RN - 04/06/2012 11:08 AM George Samaniego said she o nly needed the CXR if the medication was not working. She said it WAS working so prescriptio n was sent to her pharmacy. Left message with gentleman at home number for her to call back. elephone Encounte r - Bernadette Cabrera RN - 04/01/2012 5:45 PM PDTStill need the order for CXR. elephone Encounter - Bernadette Cabrera RN - 04/01/2012 3:50 PM PDTPatient called back. She would like to have the chest XRAY Now . Patient would like a refill on her Dexilant 60mg. She uses [facility].Electronically si gned by Bernadette Cabrera RN at 04/01/2012 3:59 PM PDTTelephone Encounter - Christina Wilson L PN - 03/30/2012 10:50 AM PDTLeft message to call. elephone Encounter - Abrahan Samaniego MD - 03/30/2012 9:51 AM PDTDid the medicine I give her help at all? If yes, then pleas call in 1 month worth. If no, then please refer to GI for stomach painand get a chest x-ray for SOB elephone Encounter - Bernadette Cabrera RN - 1 4:56 PM PDTPatient states that she saw Dr. Samaniego about 10 days ago for shortnes s of breath and soreness in stomach area and a lot of bloating. She states Dr. Samaniego gave her some samples. States they are gone. She says that she still has the shortness of breath And the stomach soreness. Hurts when pressed on. 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 SHe is not home until 11:30 in the morning. She would like a call after 11:30 and she said she could actually answer. Call [phone]. She states can leave message if she does not answer. documented in this enc ounter Plan of Treatment +--------+---------+ + + + | Date | Type | Specialty | Care Team | Description | +--------+---------+ + + + | 04/29/ | Office | Internal Medicine | Abrahan Samaniego MD | | | 2019 | Visit | | [address] [place] [address] | | | | | | [place] | | | | | | [id number] | | | | | | | | +--------+---------+ + + + | 07/25/ | Office | Cardiology | Renetta, | | | 2021 | Visit | | [address] | | | | | | [place], | | | | | | [place] [address] | | | | | | [phone] | | | | | | | | +--------+---------+ + + + | 09/03/ | Office | Endocrinology | Cheryl Zee MD | | | 2020 | Visit | | [address] | | | | | | [address] [place] | | | | | | [address] | | | | | | | | +--------+---------+ + + + documented as of this encounter Visit Diagnoses Not on filedocumented in this encounter"
--- OUTSIDE RECORDS SUMMARY | ~2020-01-04 | XMS | Encounter Summary ---
Demographics + + + | Address | [address] | | | [place] [address] | + + + | Home Phone [...] Author | [facility] | | | and [...] [place], | | | | | [place] [address] | | + + + + + | Ryan Vogt | ECON | Unknown | | + + + + + | Rob Vogt | ECON | Unknown | | + + + + + Care Team Providers + +------+ + | Care Fisher Terrapin Name | Role | Phone | + +------+ + | Abrahan Samaniego MD | PCP | | + +------+ + Reason for Referral Evaluate & Treat (Routine) + + + [...] | | contracture | [address] | [address] | | | | | | [address] | [address] | | | | | | [place], | [place], | | | | | | [place] [address] | [place] [address] | | | | | | Phone: | Phone: | | | | | | [phone] | [phone] | | | | | | Fax: | Fax: | | | | | | [phone] | [phone] | + + + + + + + Reason for Visit + + + | Reason | Comments | + + + | Annual Exam | | + + + | Medicare Wellness | | + + + Encounter Details +--------+---------+ + + + | Date | Type | Department | Care Team | Description | +--------+---------+ + + + | 04/24/ | Office | [facility] | Abrahan Samaniego MD | Preventative health | | 2019 | Visit | MEDICINE [address] [place] [address] | [address] [place] [address] | care (Primary Dx); | | | | [place], | [place] | Atypical chest pain; | | | | [place] [address] | [address] | Hypopituitarism | | | | [phone] | | (HCC); | | | | | | Hyperlipidemia, | | | | | | unspecified | | | | | | hyperlipidemia type; | | | | | | Screening for | | | | | | breast cancer; | | | | | | Dupuytren's | | | | | | contracture; Stage 3 | | | | | | chronic kidney | | | | | | disease (HCC) | +--------+---------+ + + + Social [...] + + + | Blood Pressure | 116/60 | 04/24/2019 10:02 AM | | | | | PST | | + + + + + | Pulse | 84 | 04/24/2019 10:02 AM | | | | | PST | | + + + + + | Temperature | 36.2 C (97.2 F) | 04/24/2019 10:02 AM | | | | | PST | | + + + + + | Respiratory Rate | 12 | 04/24/2019 10:02 AM | | | | | PST | | + + + + + | Oxygen Saturation | 97% | 04/24/2019 10:02 AM | | | | | PST | | + + + + + | Inhaled Oxygen | - | - | | | Concentration | | | | + + + + + | Weight | 70.8 kg (156 lb 1.4 | 04/24/2019 10:02 AM | | | | oz) | PST | | + + + + + | Height | 162.6 cm (5' 4") | 04/24/2019 10:02 AM | | | | | PST | | + + + + + | Body Mass Index | 26.79 | 04/24/2019 10:02 AM | | | | | PST | | + + + + + documented in this encounter Patient Instructions Patient Instructions Abrahan Samaniego MD - 04/24/2019 10:15 AM PSTPlease call [phone] to sc hedule a mammogram There are simple things that you can [...] Use night lights in your home 5. motor assembly supervisor all throw rugs and secure power cords so that you will not trip on them. 6. STAY OFF OF ALL LADDERS!!! There is a new shingles vaccine called Shingrix. It is recommended for everyone over the a ge of 50 even if they have had the previous shingles vaccine. Check with your pharmacy for a vailability. Start a daily walking program, elliptical outdoor fitness trainer or riding stationary bike. You need to do it at least 4 days per week. Skip walking outside if the weather is bad. If you use the tr deangelonhi, make sure to clip the emergency brake on you. documented in this encounter Progress Notes Abrahan Samaniego MD - 04/24/2019 10:15 AM PST Subjective: Patient ID: Oliva Vogt is a 69 y.o. female. WELLNESS EXAM: She reports that she is doing well. She has had progression of her Dupuytre n's contractures now in both hands. She had prior treatment of a Dupuytren's by Dr. Brand in the [facility] and prefers to seek care elsewhere now. 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 Unknown Impaired mobility 07/16/2014 Unknown Secondary adrenal insufficiency 05/16/2012 Unknown HIP PAIN Unknown Secondary hypothyroidism Unknown Hyperlipidemia Unknown Hypopituitarism Unknown Chronic kidney disease (CKD) Unknown DUPUYTREN'S CONTRACTURE 12/15/2011 Unknown OSTEOARTHRITIS, KNEE 12/15/2011 Unknown OTHER DISEASES OF NASAL CAVITY AND SINUSES 09/23/2011 Unknown Frontal skull lesion 09/10/2011 Unknown OTHER AND UNSPECIFIED HYPERLIPIDEMIA 11/24/2010 Unknown Past Surgical History: Procedure Laterality Date CARDIAC CATHERIZATION Left 12/26/2018 Procedure: CV LHC; Surgeon: Benigno Deras MD; Location: [facility] CV LAB CHOLECYSTECTOMY COLONOSCOPY 03/12/2014 COLONOSCOPY; [...] in 2019 . She works at the [employer]. She doesn't exercise because she is so busy with h er grands. Enjoys doing genealogy. 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 Current Outpatient Medications on File Prior to [...] See intake form which is reviewed by and scanned to EMR Objective:BP 116/60 | Pulse 84 | Temp 36.2 C (97.2 F) | Resp 12 | Ht 1.626 m (5' 4" ) | Wt 70.8 kg (156 lb 1.4 oz) | SpO2 97% | BMI 26.79 kg/m Physical Exam BP 116/60 | Pulse 84 | Temp 36.2 C (97.2 F) | Resp 12 | Ht 1.626 m (5' 4") | Wt 70 .8 kg (156 lb 1.4 oz) | SpO2 97% | BMI 26.79 kg/m General Appearance: Alert, cooperative, no distress, [...] four quadrants, no masses, no organomegaly Genitalia: Not done Rectal: Not done Extremities: Extremities normal, atraumatic, no cyanosis or edema. She has Dupuytren's c ontractures of multiple fingers of both hands. Pulses: 2+ and symmetric all extremities Skin: Skin color, texture, turgor normal, no rashes or lesions Lymph nodes: Cervical, supraclavicular, and axillary nodes normal Neurologic: CNII-XII intact, normal strength, sensation and reflexes throughout. Registration and recall are 3/3 Assessment/Plan: 1. 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 She wondereed about starting the keto diet and I encouraged her to eat a sensible, well rounded diet instead with at least 2 servings of fruits and veg per day and t o increase her exercise. Given 5-10 year written schedule on Cancer Screening 2. Atypical chest pain she had a complete work-up including a stress test and left heart cath. All was negative. 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 Hyperlipidemia, unspecified hyperlipidemia type last lipid panel was at goal 5. Screening for breast cancer [facility] Tomosynthesis Screening Bilateral 6. Dupuytren's contracture has Dupuytren's contractures affecting several fingers of both hands. She would like to visit with Dr. Triana about options. 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 Plastic Surgery - AMB Referral 7. Stage 3 chronic kidney disease (HCC) Renal Function Panel next month which will be at a 3-month interval from previous. documented in this enc ounter Plan of [...] | | | | | | [place] [address] | | | | | | [phone] | | | | | | | | +--------+---------+ + + + | 09/03/ | Office | Endocrinology | Cheryl Zee MD | | | 2020 | Visit | | [address] | | | | | | [address] [place] | | | | | | [address] | | | | | | | | +--------+---------+ + + + + + +--------+ + + | Name | Type | Priori | Associated Diagnoses | Order Schedule | | | | ty | | | + + +--------+ + + | Plastic Surgery - | Outpatient | Routin | Adair's | Ordered: 04/24/2019 | | AMB Referral | Referral | e | contracture | | + + +--------+ + + documented as of this encounter Results Renal Function Panel (05/23/2019 4:20 PM PST) + + + + + + | Component | Value | Ref Range | Performed | Pathologist | | | | | At | Signature | + + + + + + | Na | 141 [...] | Cl | 106 | 98 - 107 mmol/L | [facility] | | | | | [facility] - | | | | | | LABORATORY | | + + + + + + | CO2 | 28 | 20 - 31 mmol/L | [facility] [...] + + + + | Glucose | 113 (H) | 60 - 106 mg/dL | [...] + + + + | Creatinine | 0.93 | 0.55 - 1.02 | [facility] | | | | | mg/dL | [facility] | | | | | | MEDICAL | | | | | | CENTER - | | | | | | LABORATORY | | + + + + + + | eGFR, | 60Comment: GLOMERULAR | >=60 | [facility] | | | non- | FILTRATION | mL/min/1.73m2 | [facility] | | | [place] | RATE,ESTIMATED | | MEDICAL | | | | mL/min/1.96u9Ryyv than | | CENTER - | | [...] + + | Calcium | 9.9 | 8.7 - 10.4 | [facility] | | | | | mg/dL | [facility] | | | | | | MEDICAL | | | | | | CENTER - | | | | | | LABORATORY | | + + + + + + | Albumin | 4.3 | 3.2 - 4.8 g/dL | [facility] | | | | | | [facility] | | | | | | MEDICAL | | | | | | CENTER - | | | | | | LABORATORY | | + + + + + + | Phosphorus | 4.5 | 2.4 - 5.1 mg/dL | [facility] | | | | | | [facility] | | | | | | MEDICAL | | | | | | CENTER - | | | | | | LABORATORY | | + + + + + + | BUN/Creatin | 17.2 | | [facility] | | | ine [...] ST. | [address] | [place], [place] | [phone] | | [facility] | | [address] | | | - LABORATORY | | | | + + + + + [facility] Tomosynthesis Screening Bilateral (05/22/2019 2:50 PM [...] | | previous mammograms dating back to 2013 FINDINGS: Breast | | | composition is [...] previous mammograms dating back to | | 2014FINDINGS: Breast composition is comprised of scattered fibroglandulardensities. [...] Primary Routine general medical examination at a [facility] | | care facility | + + | Atypical chest pain Other chest pain | + + | Hypopituitarism (HCC) Panhypopituitarism | + + | Hyperlipidemia, unspecified hyperlipidemia type | + + | Screening for breast cancer Breast screening, unspecified | + + | Dupuytren's contracture Contracture of palmar fascia | + + | Stage 3 chronic kidney disease (HCC) | + + documented in this encounter
--- OUTSIDE RECORDS SUMMARY | ~2020-01-04 | XMS | Encounter Summary ---
Demographics + + + | Address | [address] | | | [place] [address] | + + + | Home Phone [...] + | Author | [facility] | | | and [place] | + + + | Organization | [facility] | | | [...] [place], | | | | | [place] [address] | | + + + + + | Ryan Vogt | ECON | Unknown | | + + + + + | Rob Vogt | ECON | Unknown | | + + + + + Care Team Providers + +------+ + | Care Compliance Representative Dealer Name | Role | Phone | + [...] Closed | | Radiology | Diagnoses | Roland, | [facility] | | | | | Right knee | Eugene Shrestha, | [address] | | | | | pain, | [address] | [place], | | | | | unspecified | [address] | [place] | | | | | chronicity | [place], | [address] | | | | | Procedures | [place] [address] | Phone: | | | | | MRI Knee | Phone: | [phone] | | | | | Right wo | [phone] | Fax: | | | | | Contrast | Fax: | [phone] | | | | | | [phone] | | +--------+--------+ + + + + Reason for Visit Diagnostic/Screening (Routine) +--------+--------+ + + + + | Status | Reason | Specialty | Diagnoses / | Referred By | Referred To | | | | | Procedures | Contact | Contact | +--------+--------+ + + + + | Closed | | Radiology | Diagnoses | Watkins, | [facility] | | | | | Right knee | Eugene Shrestha, | [address] | | | | | pain, | [address] | [place], | | | | | unspecified | [address] | [place] | | | | | chronicity | [place], | [address] | | | | | Procedures | [place] [address] | Phone: | | | | | MRI Knee | Phone: | [phone] | | | | | Right wo | [phone] | Fax: | | | | | Contrast | Fax: | [phone] | | | | | | [phone] | | +--------+--------+ + + + + Encounter Details +--------+ + + + + | Date | Type | Department | Care Team | Description | +--------+ + + + + | 04/05/ | Hospital | [facility] | Eugene Watkins | Right knee pain, | | 2019 | Encounter | [facility] MRI [address] | [address] [facility] | unspecified | | | | [address] [place], | [place], [place] | chronicity | | | | [place] [address] | [address] | | | | | [phone] | | | +--------+ + + + [...] + + + +---------+ + + | LORazepam (ATIVAN) | Take 1 hour prior to | 1 | 0 | 04/04/20 | | | 2 MG tablet | procedure | tablet | | 19 | 9 | + [...] | | | | | | [place] [address] | | | | | | [phone] | | | | | | | | +--------+---------+ + + + | 09/03/ | Office | Endocrinology | Cheryl Zee MD | | | 2020 | Visit | | [address] [place] | | | | | | [address] [place] | | | | | | [id number] | | | | | | | | +--------+---------+ + + + documented as of this encounter Procedures + +--------+ + + + | Procedure Name | Priori | Date/Time | Associated Diagnosis | Comments | | | ty | | | | + +--------+ + + + | MRI KNEE RIGHT WO | Routin | 04/05/2019 | Right knee pain, | Results for this | | CONTRAST | e | 1:40 PM | unspecified | procedure are in the | | | | PDT | chronicity | results section. | + +--------+ + + + documented in this encounter Results MRI Knee Right wo Contrast (04/05/2019 1:40 PM PDT) + + | Specimen | + + | | + + + + + | Impressions | Performed At | + + + | Complex tears of both the lateral and medial menisci as detailed | [facility] | | above. Some level of cartilage injury involving the lateral | | | patellar facet and patellar apex. Mild to moderate sized | | | popliteal cyst. Suspect some level of tear at the mid substance | | | portion although there is questionable continuity of ACL tendon | | | fibers as seen on coronal imaging. This may need be intact and not | | | torn if the above findings are artifactual. Partial tear involving | | | the posterior and anterior fibers of the medial collateral ligament. | | | Dictated and Signed by: Raghu Truong MD Electronically | | | signed: 04/05/2019 2:29 PM | | + + + + + + | Narrative | Performed At | + + + | EXAM: MRI KNEE RIGHT WO CONTRAST dated 04/05/2019 12:32 PM . | [facility] | | HISTORY: knee pain . COMPARISON: 08/23/2018 . TECHNIQUE: | | | Multiplanar multisequence MR imaging of the RIGHT knee is performed | | | on a 1.5 Alycia MRI scanner. No contrast was utilized. FINDINGS: | | | Cruciate ligaments: Suspect a tear of the anterior cruciate | | | ligament. The posterior cruciate ligament is intact and unremarkable. | | | Menisci: Complex tear involving the posterior horn/root of the | | | medial meniscus with a large vertical radial tear component. Large | | | horizontal and complex/macerated tear appearance of the mid and | | | posterior body of the medial meniscus with mild lateral extrusion. | | | Complex tear with a large radial tear component involving the | | | posterior root of the lateral meniscus. Question a tear involving the | | | anterior root of the lateral meniscus near its tibial insertion. | | | Medial stabilizing structures: Partial tear involving the posterior | | | fibers of the medial collateral ligament and partial tear at the | | | junction of the humeral retinaculum and medial collateral ligament. | | | The semimembranosus is intact and unremarkable. Lateral | | | stabilizing structures: The fibular collateral ligament, the | | | iliotibial tract, and the biceps femoris tendons are intact and | | | unremarkable. The popliteus tendon and muscle are intact and | | | unremarkable. Extensor mechanism: The visible portions of the | | | quadriceps tendon and the patellar tendon are intact and | | | unremarkable. Medial and lateral retinacula are intact and | | | unremarkable. No pathology in the area of the patellofemoral | | | ligaments. No edema in the suprapatellar or prefemoral fat. | | | Articular surfaces: Cartilage heterogeneity and likely greater than | | | 50% cartilage surface defect involving the lateral patellar facet. | | | Mild diffuse thinning of the mid and inferior patellar apex | | | cartilage. Mild diffuse areas of cartilage heterogeneity involving | | | the medial compartments. Mild compartmental osteophytosis. Fluid | | | collections: Small joint effusion. Small to moderate sized popliteal | | | cyst. Muscle and marrow: No significant muscle edema or focal | | | muscle atrophy. Marrow signal is otherwise unremarkable | | | | | + + + + + | Procedure Note | + + | Vishnu, Rad Results In - 04/05/2019 2:32 PM PDT EXAM: MRI KNEE RIGHT WO CONTRAST dated | | 04/05/2019 12:32 PM .HISTORY: knee pain .COMPARISON: 08/23/2018 .TECHNIQUE: Multiplanar | | multisequence MR imaging of the RIGHT knee is performedon a 1.5 Alycia MRI scanner. No | | contrast was utilized.FINDINGS:Cruciate ligaments: Suspect a tear of the anterior | | cruciate ligament. Theposterior cruciate ligament is intact and unremarkable. Menisci: | | Complex tear involving the posterior horn/root of the medial meniscuswith a large | | vertical radial tear component. Large horizontal andcomplex/macerated tear appearance of | | the mid and posterior body of the medialmeniscus with mild lateral extrusion. Complex | | tear with a large radial tearcomponent involving the posterior root of the lateral | | meniscus. Question a tearinvolving the anterior root of the lateral meniscus near its | | tibial insertion.Medial stabilizing structures: Partial tear involving the posterior | | fibers ofthe medial collateral ligament and partial tear at the junction of the | | humeralretinaculum and medial collateral ligament. The semimembranosus is intact | | andunremarkable. Lateral stabilizing structures: The fibular collateral ligament, the | | iliotibialtract, and the biceps femoris tendons are intact and unremarkable. | | Thepopliteus tendon and muscle are intact and unremarkable. Extensor mechanism: The | | visible portions of the quadriceps tendon and thepatellar tendon are intact and | | unremarkable. Medial and lateral retinacula areintact and unremarkable. No pathology | | in the area of the patellofemoralligaments. No edema in the suprapatellar or prefemoral | | fat. Articular surfaces: Cartilage heterogeneity and likely greater than 50%cartilage | | surface defect involving the lateral patellar facet. Mild diffusethinning of the mid and | | inferior patellar apex cartilage. Mild diffuse areas ofcartilage heterogeneity | | involving the medial compartments. Mild compartmentalosteophytosis.Fluid collections: | | Small joint effusion. Small to moderate sized popliteal cyst.Muscle and marrow: No | | significant muscle edema or focal muscle atrophy. Marrowsignal is otherwise | | unremarkable IMPRESSION: Complex tears of both the lateral and medial menisci as | | detailed above.Some level of cartilage injury involving the lateral patellar facet and | | patellarapex.Mild to moderate sized popliteal cyst.Suspect some level of tear at the mid | | substance portion although there isquestionable continuity of ACL tendon fibers as seen | | on coronal imaging. Thismay need be intact and not torn if the above findings are | | artifactual.Partial tear involving the posterior and anterior fibers of the | | medialcollateral ligament.Dictated and Signed by: Raghu Truong MD Electronically | | signed: 04/05/2019 2:29 PM | |ligaments. No edema in the suprapatellar or prefemoral fat. | | | |Articular surfaces: Cartilage heterogeneity and likely greater than 50% | |cartilage surface defect involving the lateral patellar facet. Mild diffuse | |thinning of the mid and inferior patellar apex cartilage. Mild diffuse areas of | |cartilage heterogeneity involving the medial compartments. Mild compartmental | |osteophytosis. | | | |Fluid collections: Small joint effusion. Small to moderate sized popliteal cyst. | | | | | |Muscle and marrow: No significant muscle edema or focal muscle atrophy. Marrow | |signal is otherwise unremarkable | | | | | | | |IMPRESSION: | | | |Complex tears of both the lateral and medial menisci as detailed above. | | | |Some level of cartilage injury involving the lateral patellar facet and patellar | |apex. | | | |Mild to moderate sized popliteal cyst. | | | |Suspect some level of tear at the mid substance portion although there is | |questionable continuity of ACL tendon fibers as seen on coronal imaging. This | |may need be intact and not torn if the above findings are artifactual. | | | |Partial tear involving the posterior and anterior fibers of the medial | |collateral ligament. | | | |Dictated and Signed by: Raghu Truong MD | | Electronically signed: 04/05/2019 2:29 PM | + + + +---------+ + + | Performing | Address | City/State/Zipcode | Phone Number | | Organization | | | | + +---------+ + + | [facility] | | | | + +---------+ + + documented in this encounter Visit Diagnoses + + | Diagnosis | + + | Right knee pain, unspecified chronicity | + + documented in this encounter"
--- OUTSIDE RECORDS SUMMARY | ~2020-01-04 | XMS | Encounter Summary ---
Demographics + + + | Address | [address] | | | [place] [address] | + + + | Home Phone [...] | [facility] [...] [place], | | | | | [place] [address] | | + + + + + | Ryan Vogt | ECON | Unknown | | + + + + + | Rob Vogt | ECON | Unknown | | + + + + + Care Team Providers + +------+ + | Care Fiber Picker Name | Role | Phone | + +------+ + | Abrahan Samaniego MD | PCP | | + +------+ + Reason for Visit + + + | Reason | Comments | + + + | Follow-up | 3 mo follow up | + + + Encounter Details +--------+---------+ + + + | Date | Type | Department | Care Team | Description | +--------+---------+ + + + | 11/29/ | Office | [facility] | Abrahan Samaniego MD | Chronic kidney | | 2018 | Visit | [address] | [address] [place] [address] | disease, unspecified | | | | [place], | [place] | CKD stage (Primary | | | | [place] [address] | [address] | Dx); Fatigue, | | | | [phone] | | unspecified type; | | | | | | Localized edema; | | | | | | Polydipsia | +--------+---------+ + + + Social History [...] + + + | Blood Pressure | 138/68 | 11/29/2017 1:52 PM | | | | | PDT | | + + + + + | Pulse | 93 | 11/29/2017 1:52 PM | | | | | PDT | | + + + + + | Temperature | 36.1 C (97 F) | 11/29/2017 1:52 PM | | | | | PDT | | + + + + + | Respiratory Rate | 16 | 11/29/2017 1:52 PM | | | | | PDT | | + + + + + | Oxygen Saturation | 97% | 11/29/2017 1:52 PM | | | | | PDT | | + + + + + | Inhaled Oxygen | - | - | | | Concentration | | | | + + + + + | Weight | 68.9 kg (151 lb 14.4 | 11/29/2017 1:52 PM | | | | oz) | PDT | | + + + + + | Height | - | - | | + + + + + | Body Mass Index | 26.91 | 10/06/2017 2:34 PM | | | | | PDT | | + + + + + documented in this encounter Patient Instructions Patient Instructions Abrahan Samaniego MD - 11/29/2017 2:15 PM PDTCall and schedule your [facility]'s: [phone] signed by Abrahan Samaniego MD at 2017 2:19 PM PDT documented in this encounter Progress Notes Abrahan Samaniego MD - 11/29/2017 2:15 PM PDT Subjective: Patient ID: Oliva Vogt is a 67 y.o. female. EDEMA: She says that there are days that her edema will come back. She says that it is pos sibly worse on hot days. She says that she is drinking more and more water and that she is q uite thirsty a fair amount of the time. She was not rechecked her blood sugars since. No c hest pain, palpitations, shortness of breath, orthopnea, PND, lightheadedness, syncope, near syncope, exertional pain in the arm/jaw/shoulder/back, peripheral edema. RIGHT KNEE PAIN: She says that she stressed her knee swimming. She thinks that it was getti ng in and out of the pool. This started 3 days ago and she says that it was painful through the weekend and that it is gradually getting better. She was getting in and out of the poo l without using the ladder. SHe says that it did swell up but minimally so. She says that i t was very stiff. Plast history of injury to that knee as a youth. No surgery. FATIGUE: She is getting more fatigued. She is getting a max of 6 hours sleep per night. Payal montalvo is working 4 hours per day. She is doing the [employer]. She had to do an evicition and her son and have been very ill and she is helping them also. She never has time for herself. She says that she was always able to handle this before. S he says that she had to make up some hours at work and could barely function. She s Patient's medications, allergies, past medical, surgical, social and family histories were obtained and reviewed as appropriate. ROS No chest pain, palpitations, shortness of breath, orthopnea, PND, lightheadedness, syncope, near syncope, exertional pain in the arm/jaw/shoulder/back, peripheral edema. Denies hemoptysis, productive cough, wheezing, shortness of breath, dyspnea on exertion. Denies heat or cold intolerance, change in hair/skin/nails or bowel habits, visual disturba nce, headache, weakness, weight gain/loss. + polyuria, polydipsia Objective:BP 138/68 | Pulse 93 | Temp 36.1 C (97 F) (Temporal) | Resp 16 | Wt 68.9 kg (151 lb 14.4 oz) | SpO2 97% | BMI 26.91 kg/m Physical Exam GEN: No acute distress. HEENT:EOMI, OP normal CHEST: Clear to auscultation. No wheezes, rales, rhonchi. Normal effort and movement CAR: Rhythm:regular Murmur:no Jese:no JVP:no Pulses:normal radial and carotid ABD: non-distended, non-tender. No hepatosplenomegaly EXT: No clubbing, cyanosis, or edema. She has some slight edema right at the malleoli Assessment/Plan: 1. Chronic kidney disease, unspecified CKD stage Needs follow up 2. Fatigue, unspecified type Differential Diagnosis for fatigue includes anemia, electrol yte disturbance, hypothyroidism, vitamin deficiency, depression, primary sleep disturbance, secondary sleep disturbance, medication side effect and other. An appropriate laboratory evaluation is started today. I think it is all due to her over doing it so much and being 67 years old. T4, Free CBC no Differential 3. Localized edema This is really limited to just the malleoli. I do not think that this is due to heart failure. Most likely dependent edema. 4. Polydipsia: Checked her sugar today in the office and it was 130 < 90 min with clark, le ttuce and chelsi sandwich with 2 pieces of bread. documented in this enc ounter Plan of Treatment +--------+---------+ + + + | Date | Type | Specialty | Care Team | Description | +--------+---------+ + + + | 04/29/ | Office | Internal Medicine | Abrahan Samaniego MD | | | 2019 | Visit | | [address] [place] [address] | | | | | | [place] | | | | | | [address] | | | | | | | | +--------+---------+ + + + | 07/25/ | Office | Cardiology | Renetta, | | | 2020 | Visit | | [facility] [address] | | | | | | [place] | | | | | | [place] [address] | | | | | | [phone] | | | | | | | [...] | + +--------+ + + + | POCT GLUCOSE | Routin | 11/29/2017 | Polydipsia | Results for this | | | e | 3:15 PM | | procedure are in the | | | | PDT | | results section. | + +--------+ + + + documented in this encounter Results CBC no Differential (01/06/2018 9:00 AM PDT) + +-------+ + + + | Component | Value | Ref Range | Performed | Pathologist | | | | | At | Signature | + +-------+ + + + | White Blood | 6.2 | 4.0 - 11.0 K/uL | [facility] | | | Cells | | | [facility] | | | | | | [facility] | | | | | | [facility] - | | | | | | LABORATORY | | + +-------+ + + + | Red Blood | 4.88 | 3.70 - 5.20 | [facility] | [...] +-------+ + + + | Hematocrit | 43.6 | 34.0 - 47.0 % | [facility] | | | | | | [facility] | | | | | | MEDICAL | | | | | | C[facility] - | | | | | | LABORATORY | | + +-------+ + + + | MCV | 89.3 | 83.0 - 101.0 fL | [facility] | | | | | | [facility] | | | | | | MEDICAL | | | | | | C[facility] - | | | | | | LABORATORY | | + +-------+ + + + | MCH | 30.4 | 28.0 - 35.0 pg | [facility] | | | | | | [facility] | | | | | | MEDICAL | | | | | | C[facility] - | | | | | | LABORATORY | | + +-------+ + + + | MCHC | 34.0 | 32.0 - 36.0 | [facility] | | | | | g/dL | [facility] | | | | | | MEDICAL | | | | | | CENTER - | | | | | | LABORATORY | | + +-------+ + + + | RDW-CV | 13.7 | <15.0 % | [facility] | | | | | | [facility] | | | | | | MEDICAL | | | | | | CENTER - | | | | | | LABORATORY | | + +-------+ + + + | Platelet | 260 | 140 - 440 K/uL | [facility] [...] [address] | [place] | [phone] | | [facility] | | [address] | | | - LABORATORY | | | | + + + + + T4Barry (01/06/2018 9:00 AM PDT) + +-------+ + + + | Component | Value | Ref Range | Performed | Pathologist | | | | | At | Signature | + +-------+ + + + | FT4 | 1.0 | 0.6 - 1.1 ng/dL | [facility] | | | | | [...] [address] | [place] | [phone] | | [facility] | | [address] | | | - LABORATORY | | | | + + + + + POCT Glucose (11/29/2017 3:15 PM PDT) + +---------+ + + + | Component | Value | Ref Range | Performed | Pathologist | | | | | At | Signature | + +---------+ + + + | Glucose, WB | 130 (A) | 65 - 99 mg/dL | | | + +---------+ + + + + + | Specimen | + + | Blood | + + documented in this encounter Visit Diagnoses + + | Diagnosis | + + | Chronic kidney disease, unspecified CKD stage - Primary | + + | Fatigue, unspecified type | + + | Localized edema Edema | + + | Polydipsia | + + documented in this encounter"
--- OUTSIDE RECORDS SUMMARY | ~2020-01-04 | XMS | Encounter Summary ---
Demographics + + + | Address | [address] | | | [place] [address] | + + + | Home Phone [...] Author | [facility] | | | and [...] [place], | | | | | [place] [address] | | + + + + + | Ryan Vogt | ECON | Unknown | | + + + + + | Rob Vogt | ECON | Unknown | | + + + + + Care Team Providers + +------+ + | Care Learning Disabilities Resource Teacher Name | Role | Phone | + +------+ + | Abrahan Samaniego MD | PCP | | + +------+ + Encounter Details +--------+ + + + + | Date | Type | Department | Care Team | Description | +--------+ + + + + | 03/07/ | Abstract | [facility] [place] [facility] | Abrahan Samaniego MD | | | 2018 | | MEDICINE [address] | [address] [facility] | | | | | [place], | [place] | | | | | [place] [address] | [id number] | | | | | [phone] | | | +--------+ + + + [...] | | | | | | [place] [address] | | | | | | [phone] | | | | | | | [...] | [facility] EXTERNAL IMAGE | Routin | 01/20/2018 | | Results for this | | | e | | | procedure are in the | | | | | | results section. | + +--------+ + + + | EXTERNAL LAB: PAP | Routin | 10/28/2015 | | Results for this | | SMEAR | e | | | procedure are in the | | | | | | results section. | + +--------+ + + + documented in this encounter Results [facility] External Image (01/20/2018) + + + + + + | Component | Value | Ref Range | Performed | Pathologist | | | | | At | Signature | + + + + + + | EXT | 1-Negative | | EXTERNAL | | | MAMMOGRAPHY | | | LAB | | + + + + + + + + | Resulting Agency Comment | + + | [facility] | + + + +---------+ + + | Performing | Address | City/State/Zipcode | Phone Number | | Organization | | | | + +---------+ + + | EXTERNAL LAB | | | | + +---------+ + + External Lab: PAP Smear (10/28/2015) + + + + + + | Component | Value | Ref Range | Performed | Pathologist | | | | | At | Signature | + + + + + + | Pap Smear, | No evidence of | | EXTERNAL | | | External | intraepithelial lesion | | LAB | | | | or malignancy | | | | + + + + + + + + | Resulting Agency Comment | + + | [facility] | + + + +---------+ + + | Performing | Address | City/State/Zipcode | Phone Number | | Organization | | | | + +---------+ + + | EXTERNAL LAB | | | | + +---------+ + + documented in this encounter Visit Diagnoses Not on filedocumented in this encounter"
--- OUTSIDE RECORDS SUMMARY | ~2020-01-04 | XMS | Encounter Summary ---
Demographics + + + | Address | [address] | | | [place] [address] | + + + | Home Phone | | + + + | Preferred Language | Unknown | + + + | Marital Status | | + + + | Hinduism Affiliation | 1027 | + + + | Race | Unknown | + + + | Ethnic Group | Unknown | + + + Author + + + | Author | [facility] | | | and [place] | + + + | Organization | [facility] | | | and [...] [place], | | | | | [place] [address] | | + + + + + | Ryan Vogt | ECON | Unknown | | + + + + + | Rob Vogt | ECON | Unknown | | + + + + + Care Team Providers + +------+ + | Care Disability Attorney Name | Role | Phone | + +------+ + | Abrahan Samaniego MD | PCP | | + +------+ + Reason for Visit + + + | Reason | Comments | + + + | New Patient | angina | + + + Evaluate & Treat (Urgent) +--------+ + + + + + | Status | Reason | Specialty | Diagnoses / | Referred By | Referred To | | | | | Procedures | Contact | Contact | +--------+ + + + + + | Closed | Specialty | Cardiology | Diagnoses | Aden | Kassie Alfred | | | Services | | Angina of | Abrahan Cortez MD | Cardiology | | | Required | | effort ([facility]) | [address] | [address] | [address] | | | | [address] | [place], | | | | | | [place] | [place] | | | | | | [place] [address] | [address] | | | | | | Phone: | Phone: | | | | | | [phone] | [phone] | | | | | | Fax: | Fax: | | | | | | [phone] | [phone] | +--------+ + + + + + Encounter Details +--------+---------+ + + + | Date | Type | Department | Care Team | Description | +--------+---------+ + + + | 12/05/ | Office | [facility] | Lauri Deras, | Angina at rest (HCC) | | 2019 | Visit | CARDIOLOGY [address] | MD [address] | (Primary Dx) | | | | [place], | [place], | | | | | [place] [address] | [place] [address] | | | | | [phone] | [phone] | | | | | | | [...] + + + | Blood Pressure | 150/88 | 12/05/2018 8:34 AM | | | | | PDT | | + + + + + | Pulse | 70 | 12/05/2018 8:34 AM | | | | | PDT | | + + + + + | Temperature | - | - | | + + + + + | Respiratory Rate | 16 | 12/05/2018 8:34 AM | | | | | PDT | | + + + + + | Oxygen Saturation | - | - | | + + + + + | Inhaled Oxygen | - | - | | | Concentration | | | | + + + + + | Weight | 72 kg (158 lb 11.7 | 12/05/2018 8:34 AM | | | | oz) | PDT | | + + + + + | Height | 160 cm (5' 3") | 12/05/2018 8:34 AM | | | | | PDT | | + + + + + | Body Mass Index | 28.12 | 12/05/2018 8:34 AM | | | | | PDT | | + + + + + documented in this encounter Patient Instructions Patient Instructions Wendi Thomas RN - 12/05/2018 8:30 AM PDTStop taking Metoprolol Start taking Amlodipine 5 mg one time daily. A prescription for nitrostat 0.4 mg sublingual to take as needed for chest pain has been se nt to your pharmacy. Increase Lipitor to 20 mg one time daily. Take and record blood pressure and pulse once in the morning and once in the evening for tw o weeks and record on provided log. Please mail log back to the clinic once completed. Blood test: Non-fasting Date Due: Prior to next office visit Where to go for labs: [facility] [address] [facility] Oliva Vogt 1950 Procedure: Left heart catheterization Day: Date: Check-in time: 1. Check in at the [facility]. You may be asked to check in up to 4 hours prior to your procedure to get extra IV fluids to help protect your kidneys. 2. Do not eat or drink anything after midnight prior to the procedure. 3. Take all of your regular medications with a sip of water the morning of the procedure. 4. The procedure lasts approximately one hour, and you will have conscious sedation for the procedure which will help decrease pain and will make you groggy. 5. After the procedure you will remain either in recovery or same day surgery center for at least 2 hours, part of this time you may have to lie flat depending on the procedure. 6. Make sure you have a train driver to take you home. Your train driver will also need to sign you ou t, to take responsibility for you, so it can not be a taxi or transportation system, unless there is a caregiver with transportation. 7. Please call us with any questions or concerns at . If you need to cancel the procedure at the last minute, such as due to illness, and you are calling after regular office hours, call the main hospital line at and ask for nursing copy supervisor t o let them know you are cancelling . Follow up appointment in Cardiology: 3-4 weeks Provider: Lauri Deras MD Date: Check-in time: documented in this encounter Progress Notes Lauri Deras MD - 12/05/2018 8:30 AM PDTFormatting of this note might be different f rom the original. PATIENT NAME: Oliva Vogt : 1950: AGE: 68 y.o. REFERRED BY: Abrahan Samaniego PRIMARY CARE: Abrahan Samaniego MD NEW PATIENT OFFICE VISIT Date of Service: 12/05/18 HISTORY OF PRESENT ILLNESS: Oliva Vogt is a 68 y.o. 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 Sh selvin is being seen today for classic angina, suggesting myocardial ischemia. Patient has been having chest pain/chest pressure while walking for the last six months but was not a concern to her, until her passing in August 2018. Chest pain and shortnes s of breath relieved by rest. She was then seen at [place] emergency department on 9, for chest pain and shortness of breath on exertion. She was started on metoprolol and not ice the chest pain was resolved a but made her feel like "she is in slow motion". Today, patient is feeling good, since she has not been moving as much lately. Patient is p hysically active by walking at her job at the [employer]. There is no chest pain o r chest discomfort both at rest and on exertion. Patient denies breathlessness. There is n o palpitation dizziness or lightheadedness. Patient can sleep on one pillow at night witho ut difficulty breathing. CURRENT PROBLEMS Patient Active Problem List Diagnosis HIP PAIN Secondary hypothyroidism Hyperlipidemia Hypopituitarism Chronic kidney disease (CKD) OTHER AND UNSPECIFIED HYPERLIPIDEMIA OTHER DISEASES OF NASAL CAVITY AND SINUSES DUPUYTREN'S CONTRACTURE OSTEOARTHRITIS, KNEE Preventative health care Secondary adrenal insufficiency Cervicalgia Other congenital anomaly of spine Impaired mobility Hypokalemia due to loss of potassium Other osteoporosis without current pathological fracture Frontal skull lesion Secondary hyperparathyroidism Localized edema Growth hormone deficiency MEDICAL, SURGICAL, AND PERSONAL HISTORY Past Surgical History: Procedure Laterality Date CHOLECYSTECTOMY COLONOSCOPY 03/12/2014 COLONOSCOPY; Laterality: N/A; Surgeon: Shaji Thornton MD; Location: [facility] MEDICAL PROCEDU RE UNIT CYST REMOVAL Left 1970 ENDOMETRIAL BIOPSY 2006 Benign Skull Biopsy 09/28/2011 (Benign) TUBAL LIGATION Bilateral Family History Problem Relation Age of Onset High blood pressure Mother 84 of Aortic dissection Other (see comment) Father 74 of hemorrgagic CVA Stroke Father Arthritis Father Lung cancer Maternal Grandfather Abdominal aortic aneurysm Brother Lung cancer Sister Family Status Relation Name Status Mother Father MGF (Not Specified) Brother Alive Sister Alive Social History Socioeconomic History Marital status: Spouse [...] is bilateral BKA. She works at the [employer]. She doesn't exerc ise because she is so busy with her grands and her son has also been ill and was having to l tameka with her until just recently. They have a mobile home park which they are selling. 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 CURRENT MEDICATIONS Current Outpatient Medications Medication Sig [...] (See Comments) Hard to wake up ROS Review of Systems Constitutional: Negative for chills, diaphoresis, fever, malaise/fatigue and weight loss. HENT: Positive for tinnitus. Negative for congestion, hearing loss and nosebleeds. Dental Problems = No Eyes: Negative for blurred vision and double vision. Respiratory: Positive for shortness of breath. Cardiovascular: Positive for chest pain and leg swelling. Negative for palpitations. Gastrointestinal: Negative for blood in stool, constipation, diarrhea, nausea and vomiting. Genitourinary: Negative for dysuria, frequency, hematuria and urgency. Musculoskeletal: Positive for joint pain. Negative for back pain, falls, myalgias and neck pain. Gait Problems = No Skin: Negative for itching and rash. Neurological: Negative for dizziness, tingling, tremors, speech change, seizures, loss of c onsciousness and weakness. Lightheaded = No Endo/Heme/Allergies: Bruises/bleeds easily. Psychiatric/Behavioral: Negative for memory loss. The patient is not nervous/anxious and do es not have insomnia. OBJECTIVE: PHYSICAL EXAM BP 150/88 | Pulse 70 | Resp 16 | Ht 1.6 m (5' 3") | Wt 72 kg (158 lb 11.7 oz) | BMI 28 .12 kg/m Physical Exam Constitutional: She appears well-developed and well-nourished. No distress. Neck: Normal carotid pulses, no hepatojugular reflux and no JVD present. Carotid bruit is n ot present. Cardiovascular: Normal rate, regular rhythm, S1 normal, S2 normal, normal heart sounds, int act distal pulses and normal pulses. PMI is not displaced. Exam reveals no gallop, no S3, no S4 and no friction rub. No murmur heard. Pulses: Carotid pulses are 2+ on the right side, and 2+ on the left side. Dorsalis pedis pulses are 2+ on the right side, and 2+ on the left side. Pulmonary/Chest: Effort normal and breath sounds normal. No accessory muscle usage. No resp iratory distress. She has no wheezes. She has no rhonchi. She has no rales. Abdominal: Normal appearance, normal aorta and bowel sounds are normal. She exhibits no abd ominal bruit. There is no hepatosplenomegaly. There is no tenderness. Musculoskeletal: She exhibits edema (Bilaterla trace leg swelling. ). Neurological: She is alert. Gait normal. Skin: Skin is warm and dry. Psychiatric: She has a normal mood and affect. Her mood appears not anxious. She does not e xhibit a depressed mood. ECG: Normal sinus rhythm. Heart rate of 70 BPM. LAB RESULTS: LIPID Lab Results Component Value Date CHOL 173 08/16/2018 TRIG 105 08/16/2018 HDL 49 08/16/2018 LDL 103 08/16/2018 CHOLHDL 3.5 08/16/2018 LDLEX 166 (A) 05/27/2015 LDLEX 166 (A) 05/27/2015 HDLEX 53 05/27/2015 HDLEX 53 05/27/2015 TRIGEX 99 05/27/2015 TRIGEX 99 05/27/2015 CHOLEX 239 (A) 05/27/2015 CHOLEX 239 (A) 05/27/2015 CHEMISTRY Lab Results Component Value Date GLU 90 11/24/2018 GLUEX 93 05/27/2015 NA 145 11/24/2018 NAEX 141 05/27/2015 K 3.6 11/24/2018 KEX 4.0 05/27/2015 CL 110 (H) 11/24/2018 CLEX 109 05/27/2015 CO2 32 (H) 11/24/2018 CO2EX 27 05/27/2015 CALCIUM 9.5 11/24/2018 ALKPHOS 78 11/10/2018 AST 18 11/10/2018 ASTEX 17 05/27/2015 ALT 25 11/10/2018 ALTEX 22 05/27/2015 BILITOT 0.4 11/10/2018 CREA 1.07 (H) 11/24/2018 BUN 19 11/24/2018 EGFR 50 (L) 08/05/2011 EGFREX 68.0 05/27/2015 CREEX 0.84 05/27/2015 HEMATOLOGY Lab Results Component Value Date WBC 8.1 11/10/2018 HGB 14.3 11/10/2018 HCT 43.1 11/10/2018 PLT 296 11/10/2018 I reviewed records from Dmitriy Guzman MD for emergency department visit on 11/10/18. I reviewed records from Abrahan Samaniego MD for office visit on 11/24/18. Refer to cardiologis t. ASSESSMENT: 1. Classic angina, suggesting myocardial ischemia A. Patient has been having chest pain/chest pressure and shortness of breath on exertion, relieved by rest for the last six months but was not a concern to her, until her yazan beasley in August 2018. She was then seen at [facility] emergency department on 11/10/18, for ches t pain and shortness of breath on exertion. She was started on metoprolol and notice the alfonso st pain was resolved a but made her feel like "she is in slow motion". B. Today, patient is feeling good, since she has not been moving as much lately. Patient is physically active by walking at her job at the [employer]. There is no signs and symptoms of overt congestive heart failure. She is in a class II of [facility] [facility] t[facility] functional class. There is bilateral trace leg swelling on physical examination. According to her age, gender and presentation, pretest likelihood of CAD is high. She is a candidate for left heart cath. 2. Essential hypertension A. Blood pressure in office is elevated. 3. Mixed hyperlipidemia A. She is on atorvastatin 10 mg daily. B. Lipid panel on 08/16/18 shows normal levels. 4. Stage III chronic kidney disease, secondary to eclampsia in 1971. A. eGFR on 11/24/18 is 51. 5. Hypothyroidism A. Patient is on levothyroxine 100 mcg. 6. 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 Severe toxemia , hemorrhage and DIC with vashti-vaginal and retroper itoneal hematoma and hypotensive episodes with secondary anemia, and acute tubular necrosis with secondary azotemia on April 01, 1974 at [facility]. B. She is on prednisone 6 mg and somatropin 5.8 mg. PLAN: 1. I spend time at length talking about natural course, treatment and prognosis of classic angina, suggesting myocardial ischemia. 2. Patient is candidate for left heart catheterization via right radial. The risks and negra efits of the procedure including alternative treatment were discussed with the patient in [facility]. The patient decides to proceed with the procedure. 3. Echocardiogram is warranted to assess cardiac structure 4. Increase atorvastatin to 20 mg daily. 5. Switch metoprolol to amlodipine 5 mg to reduce high blood pressure. She does not do we ll with metoprolol. 6. Check blood pressure x 2 weeks. 7. Prescribe nitroglycerine 0.4 mg as needed for chest pain 8. Check LFT and Lipid panel. 9. Follow up in 3 to 4 weeks. I, Kay Mott, am acting as a scribe on behalf of, and in the presence of Lauri weiss MD. I have reviewed and edited this note. Kay Mott [employer] 12/05/2018 I, Lauri Deras MD, personally performed the services described in this documentation, as scribed in my presence and it is both accurate and complete. Kay Mott Executive Vp 12/05/2018 8:36 Electronically signed by: Lauri Deras MD [facility] 12/05/2018 Portions of this chart may have been created with Dragon voice recognition software. Occasi onal wrong-word or sound-alike substitutions may have occurred due to the inherent lópez itations of voice recognition software. Please read the chart carefully and recognize, using context, where these substitutions have occurred. documented in this encounter Plan of Treatment +--------+---------+ + + + | Date | Type | Specialty | Care Team | Description | +--------+---------+ + + + | 04/29/ | Office | Internal Medicine | Abrahan Samaniego MD | | | 2019 | Visit | | [address] [place] [address] | | | | | | [place] | | | | | | [address] | | | | | | | | +--------+---------+ + + + | 07/25/ | Office | Cardiology | Renetta, | | | 2020 | Visit | | [place] [address] | | | | | | [place] | | | | | | [place] [address] | | | | | | [phone] | | | | | | | | +--------+---------+ + + + | 09/03/ | Office | Endocrinology | Cheryl Zee MD | | | 2020 | Visit | | [address] [place] | | | | | | [address] [place] | | | | | | [id number] | | | | | | | | +--------+---------+ + + + documented as of this encounter Procedures + +--------+ + + + | Procedure Name | Priori | Date/Time | Associated Diagnosis | Comments | | | ty | | | | + +--------+ + + + | ECG 12 LEAD | Routin | 12/05/2018 | Angina at rest | Results for this | | | e | 8:27 AM | (HCC) | procedure are in the | | | | PDT | | results section. | + +--------+ + + + documented in this encounter Results Hepatic Function Panel (07/24/2019 9:53 AM PST) + +---------+ + + + | Component | Value | Ref Range | Performed | Pathologist | | | | | At | Signature | + +---------+ + + + | Bilirubin | 0.6 | 0.3 - 1.2 mg/dL | [facility] | | | Total | | | [facility] | | | | | | [facility] | | | | | | [facility] - | | | | | | LABORATORY | | + +---------+ + + + | Total | 5.8 | 5.7 - 8.2 g/dL | [facility] | | | Protein | | | [facility] | | | | | | [facility] | | | | | | C[facility] - | | | | | | LABORATORY | | + +---------+ + + + | Albumin | 3.8 | 3.2 - 4.8 g/dL | [facility] | | | | | | [facility] | | | | | | MEDICAL | | | | | | CENTER - | | | | | | LABORATORY | | + +---------+ + + + | AST | 15 | 0 - 34 U/L | [facility] | | | | | | [facility] | | | | | | MED[facility] | | | | | | CENTER - | | | | | | LABORATORY | | + +---------+ + + + | ALT | 19 | 10 - 49 U/L | [facility] | | | | | | [facility] | | | | | | MEDICAL | | | | | | CENTER - | | | | | | LABORATORY | | + +---------+ + + + | Alkaline | 127 (H) | 46 - 116 U/L | [facility] | | | Phosphatase | | | [facility] | | | | | | MEDICAL | | | | | | CENTER - | | | | | | LABORATORY | | + +---------+ + + + | Globulin | 2.0 (L) | 2.1 - 3.8 g/dL | [facility] | | | | | | [facility] | | | | | | MEDICAL | | | | | | CENTER - | | | | | | LABORATORY | | + +---------+ + + + | Albumin/Rachel | 1.9 | 0.8 - 1.9 | [facility] | [...] | Direct | | mg/dl | [facility] | | | | [...] [address] | [place] | [phone] | | [facility] | | [address] | | | - LABORATORY | | | | + + + + + Lipid Panel (07/24/2019 9:53 AM PST) + +-------+ + + + | Component | Value | Ref Range | Performed | Pathologist | | | | | At | Signature | + +-------+ + + + | Triglycerid | 107 | <=150 mg/dL | [facility] | | | es | | | [facility] | | | | | | MEDICAL | | | | | | CENTER - | | | | | | LABORATORY | | + +-------+ + + + | Cholesterol | 120 | <=200 mg/dL | [facility] | | | | | | [facility] | | | | | | MEDICAL | | | | | | CENTER - | | | | | | LABORATORY | | + +-------+ + + + | HDL | 46 | 40 - 60 mg/dL | [facility] | | | | | | [facility] | | | | | | MEDICAL | | | | | | CENTER - | | | | | | LABORATORY | | + +-------+ + + + | Chol/HDL | 2.6 | | [facility] | | | Ratio | | | [facility] | | | | | | MEDICAL | | | | | | CENTER - | | | | | | LABORATORY | | + +-------+ + + + | LDL, | 53 | <=130 mg/dL | [facility] | | [...] [address] | [place] | [phone] | | [facility] | | [address] | | | - LABORATORY | | | | + + + + + ECG 12 lead (12/05/2018 8:27 AM PDT) + + + + + + | Component | Value | Ref Range | Performed | Pathologist | | | | | At | Signature | + + + + + + | VENTRICULAR | 70 | BPM | [facility] | | | RATE EKG | | | | | + + + + + + | ATRIAL RATE | 70 | BPM | [facility] | | + + + + + + | P-R | 164 | ms | [facility] | | | INTERVAL | | | | | + + + + + + | QRS | 76 | ms | [facility] | | | DURATION | | | | | + + + + + + | Q-T | 376 | ms | [facility] | | | INTERVAL | | | | | + + + + + + | Q-T | 406 | ms | [facility] | | | INTERVAL | | | | | | (CORRECTED) | | | | | + + + + + + | P WAVE AXIS | 64 | degrees | [facility] | | + + + + + + | QRS AXIS | -15 | degrees | [facility] | | + + + + + + | T AXIS | 70 | degrees | [facility] | | + + + + + + | INTERPRETAT | Normal sinus | | [facility] | | | ION TEXT | rhythmNormal ECGWhen | | | | | | compared with ECG of | | | | | | 10-NOV-2018 11:07,No | | | | | | significant change was | | | | | | foundConfirmed by | | | | | | LAURI DERAS MD | | | | | | ([id number]) on 12/05/2018 | | | | | | 4:26:27 PM | | | | + + + [...] | Diagnosis | + + | Angina at rest (HCC) - Primary Other and unspecified angina pectoris | + + documented in this encounter
--- OUTSIDE RECORDS SUMMARY | ~2020-01-04 | XMS | Encounter Summary ---
Demographics + + + | Address | [address] | | | [place] [address] | + + + | Home Phone | | + + + | Preferred Language | Unknown | + + + | Marital Status | | + + + | Pentecostalism Affiliation | 1027 | + + + | Race | Unknown | + + + | Ethnic Group | Unknown | + + + Author + + + | Author | [facility] | | | and [place] | + + + | Organization | [facility] | | [...] [place], | | | | | [place] [address] | | + + + + + | Ryan Vogt | ECON | Unknown | | + + + + + | Rob Vogt | ECON | Unknown | | + + + + + Care Team Providers + +------+ + | Care Creche Attendant Name | Role | Phone | [...] Description | +--------+--------+ + + + | 09/29/ | Refill | [facility] | Abrahan Samaniego MD | Medication Refill | | 2015 | | MEDICINE [address] [place] [address] | [address] [place] [address] | | | | | [place], | [place] | | | | | [place] [address] | [address] | | | | | [phone] | | | +--------+--------+ + + + [...] | | 2019 | Visit | | [address] [place] [address] | | | | | | [place] | | | | | | [address] | | | | | | | | +--------+---------+ + + + | 07/25/ | Office | Cardiology | Renetta, | | | 2020 | Visit | | [place] [address] | | | | | | [place] | | | | | | [place] [address] | | | | | | [phone] | | | | | | | | +--------+---------+ + + + | 09/03/ | Office | Endocrinology | Cherly Zee MD | | | 2020 | Visit | | [address] [place] | | | | | | [address] [place] | | | | | | [address] | | | | | | | | +--------+---------+ + + + documented as of this encounter Visit Diagnoses Not on filedocumented in this encounter"
--- OUTSIDE RECORDS SUMMARY | ~2020-01-04 | XMS | Encounter Summary ---
Demographics + + + | Address | [address] | | | [place] [address] | + + + | Home Phone [...] | Author | [facility] | | | and [...] [place], | | | | | [place] [address] | | + + + + + | Ryan Vogt | ECON | Unknown | | + + + + + | Rob Vogt | ECON | Unknown | | + + + + + Care Team Providers + +------+ + | Care Floor Helper Name | Role | Phone | + +------+ + | Abrahan Samaniego MD | PCP | | + +------+ + Reason for Visit + +--------+ + | Reason | Onset | Comments | | | Date | | + +--------+ + | Medication Refill | 04/01/ | | | | 2011 | | + +--------+ + Encounter Details +--------+--------+ + + + | Date | Type | Department | Care Team | Description | +--------+--------+ + + + | 04/01/ | Refill | [facility] [place] [facility] | Bernadette Cabrera RN | Medication Refill | | 2011 | | MEDICINE [address] [place] [address] | | | | | | [place], | | | | | | [place] [address] | | | | | | [phone] | | | +--------+--------+ + + + [...] this encounter Miscellaneous Notes Telephone Encounter - Bernadette Cabrera RN - 04/06/2012 2:25 PM PDTSamples sent to front for patient to seed cone picker. She has been notified.Electronically signed by Bernadette aCbrera RN at 2:25 PM PDTdocumented in this encounter Plan of Treatment +--------+---------+ + + + | Date | Type | Specialty | Care Team | Description | +--------+---------+ + + + | 04/29/ | Office | Internal Medicine | Abrahan Samaniego MD | | | 2019 | Visit | | [address] [place] [address] | | | | | | [place] | | | | | | [id number] | | | | | | | | +--------+---------+ + + + | 07/25/ | Office | Cardiology | Renetta, | | | 2020 | Visit | | [facility] [facility] [address] | | | | | | [place] | | | | | | [place] [address] | | | | | | [phone] | | | | | | | | +--------+---------+ + + + | 09/03/ | Office | Endocrinology | Cheryl Zee MD | | | 2020 | Visit | | [address] [place] | | | | | | [address] [place] | | | | | | [address] | | | | | | | | +--------+---------+ + + + documented as of this encounter Visit Diagnoses Not on filedocumented in this encounter"
--- OUTSIDE RECORDS SUMMARY | ~2020-01-04 | XMS | Encounter Summary ---
Demographics + + + | Address | [address] | | | [place] [address] | + + + | Home Phone | | + + + | Preferred Language | Unknown | + + + | Marital Status | | + + + | Voodoo Affiliation | 1027 | + + + | Race | Unknown | + + + | Ethnic Group | Unknown | + + + Author + + + | Author | [facility] | | | and [place] | + + + | Organization | [facility] | | [...] [place], | | | | | [place] [address] | | + + + + + | Ryan Vogt | ECON | Unknown | | + + + + + | Rob Vogt | ECON | Unknown | | + + + + + Care Team Providers + +------+ + | Care Granite Polisher Apprentice Name | Role | Phone | + +------+ + | Abrahan Samaniego MD | PCP | | + +------+ + Encounter Details +--------+ + + + + | Date | Type | Department | Care Team | Description | +--------+ + + + + | 05/12/ | Hospital | [facility] | | | | 2010 | Encounter | MED CTR XRAY [address] | | | | | | [address] | | | | | | [place] [address] | | | | | | [phone] | | | +--------+ + + + [...] [place] | | | | | | [address] | | | | | | | | +--------+---------+ + + + | 07/25/ | Office | Cardiology | Renetta, | | | 2020 | Visit | | PARKER Harris [address] | | | | | | [place] | | | | | | [place] [address] | | | | | | [phone] | | | | | | | [...] + +--------+ + + + | XR SKULL COMPLETE 4 | | 05/12/2011 | | Results for this | | + VW | | 4:11 PM | | procedure are in the | | | | PST | | results section. | + +--------+ + + + documented in this encounter Results XR Skull Complete 4 + Vw (05/12/2011 4:11 PM PST) + + | Specimen | + + | | + + + + + | Narrative | Performed At | + + + | [facility] Diagnostic Imaging Department | [facility] | | [address] [facility] | [facility] | | SKULL, 05/12/2011 CLINICAL | DIAG IMG | | HISTORY: FRONTAL BONE LESION SEEN ON MR AND BONE SCANNING. | | | FINDINGS: Angled AP and lateral views of the skull are performed and | | | compared to prior studies. The previously identified lesion in | | | the right frontal region is not identifiable by this modality, which | | | would be much less sensitive than CT scanning. No bony | | | abnormalities are identified. IMPRESSION: 1. NEGATIVE STUDY | | | OF THE SKULL. THE ABNORMALITY SEEN ON MRI AND NUCLEAR MEDICINE | | | IMAGES IS NOT IDENT IFIED. FURTHER EVALUATION WITH CT SCANNING | | | WOULD BE RECOMMENDED. Dictated Date/Time: 05/12/2011 16:47 | | | Transcribed Date/Time: 05/12/2011 19:45 Sales Team Manager: | | | <Electronically Signed by Chan Shahid MD> 05/12/112007 | | + + + + + | Procedure Note | + + | Cyrus Mares Conversion - 07/14/2013 4:20 PM [facility] | | Diagnostic Imaging Department [address] [place] [address] | | SKULL, 05/12/2011 CLINICAL HISTORY: FRONTAL BONE | | LESION SEEN ON MR AND BONE SCANNING. FINDINGS: Angled AP and lateral views of the | | skull are performed and compared to prior studies. The previously identified lesion in | | the right frontal region is not identifiable by this modality, which would be much less | | sensitive than CT scanning. No bony abnormalities are identified. IMPRESSION: 1. | | NEGATIVE STUDY OF THE SKULL. THE ABNORMALITY SEEN ON MRI AND NUCLEAR MEDICINE IMAGES IS | | NOT IDENTIFIED. FURTHER EVALUATION WITH CT SCANNING WOULD BE RECOMMENDED. Dictated | | Date/Time: 05/12/2011 16:47Transcribed Date/Time: 05/12/2011 19:45Transcriptionist: | | <Electronically Signed by Chan Shahid MD> 05/12/112007 | | previously identified lesion in the right frontal region is not identifiable by this modal ity, which | | would be much less sensitive than CT scanning. No bony abnormalities are identified. | | | |IMPRESSION: | |1. NEGATIVE STUDY OF THE SKULL. THE ABNORMALITY SEEN ON MRI AND NUCLEAR MEDICINE IMAGES IS NOT IDENT | |IFIED. FURTHER EVALUATION WITH CT SCANNING WOULD BE RECOMMENDED. | | | |Dictated Date/Time: 05/12/2011 16:47 | |Transcribed Date/Time: 05/12/2011 19:45 | |Sales Team Manager: | |<Electronically Signed by Chan Shahid MD> 05/12/112007 | + + + +---------+ + + [...]
--- OUTSIDE RECORDS SUMMARY | ~2020-01-04 | XMS | Encounter Summary ---
Demographics + + + | Address | [address] | | | [place] [address] | + + + | Home Phone [...] + | Author | [facility] | [...] [place], | | | | | [place] [address] | | + + + + + | Ryan Vogt | ECON | Unknown | | + + + + + | Rob Vogt | ECON | Unknown | | + + + + + Care Team Providers + +------+ + | Care Radiotelegraphist Name | Role | Phone | + +------+ + | Abrahan Samaniego MD | PCP | | + +------+ + Reason for Visit + +--------+ + | Reason | Onset | Comments | | | Date | | + +--------+ + | Appointment | 09/08/ | | | | 2017 | | + +--------+ + Encounter Details +--------+ + + + + | Date | Type | Department | Care Team | Description | +--------+ + + + + | 09/08/ | Telephone | [facility] | Bernard Mcelroy, | Appointment | | 2016 | | ORTHOPEDIC SURGERY | [address] | | | | | [address] [place] | [place] | | | | | [place] | [address] | | | | | [address] | | | | | | [phone] | | | +--------+ + + + [...] this encounter Miscellaneous Notes Telephone Encounter - Mindi Ornelas Cert MA - 09/09/2016 8:38 AM PDTPatient is scheduled to be seen today by . elephone Encounter - Mindi Ornelas Cert MA - 10:41 AM PDT*Deferred to Dr. Mcelroy* elephon e Encounter - Gunjan Ahmadi - 09/08/2016 9:31 AM PDTPatient was seen at [facility] ER on for a finger injury. Patient was taking off some bed sheets when the injury occured to the finger on 09/07/2016. Patient had an xray and was placed in a finger splint. Patient stated that one of the nurses came over and placed the splint on but patient doesn't feel l magda it is correct. Patient is concerned about the finger starting to heal incorrect. Patient was advised Dr Mcelroy is in Surgery today but would be back in the office tomorrow. Please advise and call [phone]. documented in this encounter Plan of Treatment +--------+---------+ + + + | Date | Type | Specialty | Care Team | Description | +--------+---------+ + + + | 04/29/ | Office | Internal Medicine | Abrahan Samaniego MD | | | 2019 | Visit | | [address] | | | | | | [place] | | | | | | [address] | | | | | | | | +--------+---------+ + + + | 07/25/ | Office | Cardiology | Renetta, | | | 2020 | Visit | | PARKER Harris [address] | | | | | | [place] | | | | | | [place] [address] | | | | | | [phone] | | | | | | | | +--------+---------+ + + + | 09/03/ | Office | Endocrinology | Cheryl Zee MD | | | 2020 | Visit | | [address] [address] | | | | | | [address] [place] | | | | | | [id number] | | | | | | | | +--------+---------+ + + + documented as of this encounter Visit Diagnoses Not on filedocumented in this encounter"
--- OUTSIDE RECORDS SUMMARY | ~2020-01-04 | XMS | Encounter Summary ---
Demographics + + + | Address | [address] | | | [place] [address] | + + + | Home Phone [...] | Author | [facility] | | | and [place] [...] [place], | | | | | [place] [address] | | + + + + + | Ryan Vogt | ECON | Unknown | | + + + + + | Rob Vogt | ECON | Unknown | | + + + + + Care Team Providers + +------+ + | Care Black Off Worker Name | Role | Phone | + +------+ + | Abrahan Samaniego MD | PCP | | + +------+ + Reason for Visit + + + | Reason | Comments | + + + | Shoulder Injury | OM date unknown. RM 1 | + + + Encounter Details +--------+---------+ + + + | Date | Type | Department | Care Team | Description | +--------+---------+ + + + | 09/01/ | Office | [facility] | Bee Simmons | Shoulder strain | | 2012 | Visit | [facility] [address] | [address] | (Primary Dx); | | | | [facility] | [address] [place] | Civilian activity | | | | [place], [place] | [place] [address] | done for income or | | | | [address] | [phone] | pay; Place of | | | | [phone] | | occurrence, | | | | | | industrial places | | | | | | and premises; | | | | | | Cumulative trauma | | | | | | from repetitive | | | | | | motion | +--------+---------+ + + + Social History [...] + + + | Blood Pressure | 120/70 | 09/01/2012 4:35 PM | | | | | PDT | | + + + + + | Pulse | 63 | 09/01/2012 4:35 PM | | | | | PDT | | + + + + + | Temperature | 36.8 C (98.3 F) | 09/01/2012 4:35 PM | | | | | PDT | | + + + + + | Respiratory Rate | 16 | 09/01/2012 4:35 PM | | | | | PDT | | + + + + + | Oxygen Saturation | 99% | 09/01/2012 4:35 PM | | | | | PDT | | + + + + + | Inhaled Oxygen | - | - | | | Concentration | | | | + + + + + | Weight | 69.4 kg (153 lb) | 09/01/2012 4:35 PM | | | | | PDT | | + + + + + | Height | 160 cm (5' 3") | 09/01/2012 4:35 PM | | | | | PDT | | + + + + + | Body Mass Index | 27.1 | 09/01/2012 4:35 PM | | | | | PDT | | + + + + + documented in this encounter Patient Instructions Patient Instructions Bee Simmons MD - 09/01/2012 4:57 PM PDTStart exercises twice daily with ice to the shoulder for 20 minutes after. Do not use free weights. Work restrictions provided. Followup with Dr. Simmons, occupational medicine, as scheduled. Return sooner for further problems, questions, or concerns. documented in this encounter Progress Notes Bee Simmons MD - 09/01/2012 5:31 PM PDTSee dictation #[id number] signed by Bee Simmons MD at 09/01/2012 5:31 PM PDTBee Simmons MD - 09/01/2012 12:00 AM PDT [facility] [address] [place] [id number] FAX: [phone] URGENT CARE NOTE URGENT CARE PROGRESS NOTE EMPLOYER: [employer] GUARANTOR: Mario Chatman DATE OF INJURY: Unknown. CLAIM NO.: [id number]. CHIEF COMPLAINT: Shoulder pain. SUBJECTIVE: The patient is a 62-year-old female who presents to Urgent Care today to initia te a claim for an injury she believes she sustained while at work. She states, for the last several months she has had progressively worsening left shoulder pain. She was seen by her primary care provider approximately 1 month ago for the shoulder pain, evaluated and provi ded with some restrictions in range of motion in an attempt to allow the shoulder to improv e. She did have some modifications at work as well. 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 From the month of January 2012 to June 2012, several employees were released, and she then had to take on additio nal responsibilities. She continued filing and filed 4 hours per day, continuously during t hat time period. It was during this time period that she began noticing pain in the left sh oulder. Then, 1 month ago, after her visit with her primary care provider, modifications we re made at her place of employment, and the shelves that held the charts were brought down to a lower level. She has continued to do filing at that level, up until 1 week ago, when s he was reevaluated by her primary care provider and was instructed to not lift the shoulder past the mid chest level. Again some modifications were made at her place of employment an d she is now able to file only on the lower level charting areas. She describes pain in the lateral aspect of the shoulder, with some radiation to the anterior shoulder and up the ba ck of the shoulder to the left neck. Symptoms are worsened with overhead reaching and reach ing behind her. She denies any numbness, tingling or weakness of the arm or hand, and denie s any neck pain or injury. She states there has been no pain with movement of the head or n skyler. PAST MEDICAL HISTORY: See EMR. MEDICATIONS: See EMR. ALLERGIES: SEE EMR. OBJECTIVE VITAL SIGNS: Blood pressure 120/70, pulse 63, respirations 16, temperature 98.3. O2 saturat ion 99% on room air. Pain is a 2 out of 10 on a pain scale. GENERAL: Well-developed, well-n ourished female in no apparent distress. Pleasant and cooperative. NECK: No vertebral poin t tenderness, crepitus or step-off is noted, full range of motion without pain or limitatio n, negative Spurling's. MUSCULOSKELETAL: Left shoulder, no asymmetry or bony deformity. There are no tender points elicited with palpation. She is able to externally rotate with minimal discomfort, internal rotation produces more discomfort. She is able to fully adduct with minimal discomfort, a bduction is limited to approximately 45 degrees due to pain. She has full forward flexion w ithout pain or limitation. She does have pain without weakness with testing of the supraspi natus musculature. No pain or weakness with testing of infraspinatus or teres minor. NEUROL OGIC: Motor strength of the upper extremities is 5/5 bilaterally. DTRs are 2+/4 bilaterally of the upper extremities. EXTREMITIES There is no clubbing, cyanosis or edema. 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 SKIN: No rashes, lesions, erythema, ecchymoses or other lesions are noted. ASSESSMENT AND PLAN 1. SHOULDER STRAIN/SPRAIN. Likely rotator cuff etiology. Have provided her with rotator cuf f strengthening exercises to do twice daily, with ice to the shoulder for 20 minutes afterw stella. I have recommended she refrain from using free weights. She will followup with Cam Simmons MD, Occupational Medicine, in 1 to 2 weeks for reevaluation and further work res trictions, if needed. She is released to modified duty, with limited use of the left upper extremity, no lifting or reaching above chest height with the left upper extremity, and to avoid pushing, pulling and lifting greater than or equal to 10 pounds with the left arm. Bee Simmons MD / DE JOB #: [id number] signed by Bee Simmons MD at 09/13/2012 8:33 AM PDTdocu mented in this encounter Miscellaneous Notes Plan of Care - [facility] - 09/01/2012 12:00 AM PDT lan of Care - [facility] - 09/01/2012 12:00 AM PDTElect ronically signed by Toro Morris at 09/26/2012 2:29 PM PDTdocumented in this encounter Plan of Treatment +--------+---------+ + + + | Date | Type | Specialty | Care Team | Description | +--------+---------+ + + + | 04/29/ | Office | Internal Medicine | Abrahan Samaniego MD | | | 2019 | Visit | | [address] | | | | | | [place] | | | | | | [id number] | | | | | | | | +--------+---------+ + + + | 07/25/ | Office | Cardiology | Renetta, | | | 2020 | Visit | | PARKER Harris [address] | | | | | | [place] | | | | | | [place] [address] | | | | | | [phone] | | | | | | | | +--------+---------+ + + + | 09/03/ | Office | Endocrinology | Cheryl Zee MD | | | 2020 | Visit | | [address] | | | | | | [address] [place] | | | | | | [address] | | | | | | | | +--------+---------+ + + + documented as of this encounter Visit Diagnoses + + | Diagnosis | + + | Shoulder strain - Primary Sprain and strain of unspecified site of shoulder and upper | | arm | + + | Civilian activity done for income or pay | + + | Place of occurrence, industrial places and premises | + + | Cumulative trauma from repetitive motion | + + documented in this encounter
--- OUTSIDE RECORDS SUMMARY | ~2020-01-04 | XMS | Encounter Summary ---
Demographics + + + | Address | [address] | | | [place] [address] | + + + | Home Phone [...] | Author | [facility] | | | and [place] [...] [place], | | | | | [place] [address] | | + + + + + | Ryan Vogt | ECON | Unknown | | + + + + + | Rob Vogt | ECON | Unknown | | + + + + + Care Team Providers + +------+ + | Care Pumpman Name | Role | Phone | + [...] Description | +--------+---------+ + + + | 06/15/ | Office | [facility] | Mitch Hopkins | S/P orthopedic | | 2020 | Visit | ORTHOPEDIC SURGERY | [address] | surgery, follow-up | | | | [address] [place] | [address] | exam (Primary Dx) | | | | [place] | [place] [address] | | | | | [address] | [phone] | | | | | [phone] | | | +--------+---------+ + + + [...] | 70.9 kg (156 lb 4.9 | 06/15/2019 2:22 PM | | | | oz) | PST | | + + + + + | Height | 160 cm (5' 3") | 06/15/2019 2:22 PM | | | | | PST | | + + + + + | Body Mass Index | 27.69 | 06/15/2019 2:22 PM | | | | | PST | | + + + + + documented in this encounter Progress Notes Mitch Hopkins PA-C - 06/15/2019 2:30 PM PSTFormatting of this note might be differe nt from the original. Name:Oliva Vogt Todays Date: 06/15/2019 Age: 69 y.o. PCP: Abrahan Samaniego MD Chief Complaint Patient presents with Post Op right knee arthroscopy and debridement DOS 06/02/19 SUBJECTIVE: Patient returns today for first postoperative visit following right knee arthroscopy debrid ement performed on 06/02/2019. She denies any pain at the right knee to which she is most p leased. Describes she does feel some pressure and tightness. She continues with aspirin fo r blood thinning therapy. She not take anything for pain control. Current level pain is ra henrik at 0 OBJECTIVE: Place without assistance of a walker and/or cane. She is full weightbearing the right lowe r extremity. Inspection of the 3 portal anterior knee incision sites reveal they are well a pproximated healing appropriately and well. There is no is any complication or infection. There is very mild swelling of the right knee is slightly warm compared bilaterally. She puente s good preservation of range of motion of the right knee at approximately 0-125degrees. No suggestion of ligamental instability with stressing. Imaging/Studies: No studies to review at this time. Vitals: 06/15/19 1422 Weight: 70.9 kg (156 lb 4.9 oz) Height: 1.6 m (5' 3") ASSESSMENT/PLAN: 1. Right knee arthroscopy debridement, status post A. Recovering appropriate well from right knee arthroscopy debridement performed 2 weeks ago. She has significant reprieve of her pain to which she is most pleased. Recommended th at she continue with light activities for the next 4 weeks and gradually increase to activit ies as tolerated thereafter. Continue with aspirin for blood thinner therapy for the next 2 weeks. Follow up in my office will be on as-needed basis. B. Patient is advised that if they have any questions, comments or concerns to contact our office. Electronically signed by: Mitch Hopkins PA-C 06/15/2019 3:31 PM If patient received pain medication today the prescription monitoring program was reviewed and patient appears to be in compliance with his program. This note was dictated using the SCL voice recognition system. Minor errors in grammar may have occurred. documented in t his encounter Plan of Treatment +--------+---------+ + + + | Date | Type | Specialty | Care Team | Description | +--------+---------+ + + + | 04/29/ | Office | Internal Medicine | Abrahan Samaniego MD | | 2019 | Visit | | [address] [place] [address] | | | | | | [place] | | | | | | [address] | | | | | | | | +--------+---------+ + + + | 07/25/ | Office | Cardiology | Renetta, | | | 2020 | Visit | | PARKER [address] | | | | | | [place], | | | | | | [place] [address] | | | | | | [phone] | | | | | | | [...] surgery | + + documented in this encounter
--- OUTSIDE RECORDS SUMMARY | ~2020-01-04 | XMS | Encounter Summary ---
Demographics + + + | Address | [address] | | | [place] [address] | + + + | Home Phone [...] + | Author | [facility] | | | and [place] [...] [place], | | | | | [place] [address] | | + + + + + | Ryan Vogt | ECON | Unknown | | + + + + + | Rob Vogt | ECON | Unknown | | + + + + + Care Team Providers + +------+ + | [facility] Display Builder Name | Role | Phone | [...] Description | +--------+--------+ + + + | 08/12/ | Refill | [facility] | Abrahan Samaniego MD | Medication Refill | | 2012 | | MEDICINE [address] [place] [address] | [address] [place] [address] | | | | | [place], | [place] | | | | | [place] [address] | [address] | | | | | [phone] | | | +--------+--------+ + + + [...] | | 2019 | Visit | | [address] [place] [address] | | | | | | [place] | | | | | | [address] | | | | | | | | +--------+---------+ + + + | 07/25/ | Office | Cardiology | Renetta, | | | 2020 | Visit | | PARKER [address] | | | | | | [place] | | | | | | [place] [address] | | | | | | [phone] | | | | | | | | +--------+---------+ + + + | 09/03/ | Office | Endocrinology | Cheryl Zee MD | | | 2020 | Visit | | [address] | | | | | | [address] [place] | | | | | | [address] | | | | | | | | +--------+---------+ + + + documented as of this encounter Visit Diagnoses Not on filedocumented in this encounter"
--- OUTSIDE RECORDS SUMMARY | ~2020-01-04 | XMS | Encounter Summary ---
Demographics + + + | Address | [address] | | | [place] [address] | + + + | Home Phone [...] + | Author | [facility] [...] [place], | | | | | [place] [address] | | + + + + + | Ryan Vogt | ECON | Unknown | | + + + + + | Rob Vogt | ECON | Unknown | | + + + + + Care Team Providers + +------+ + | Care Outbound Sales Representative Name | Role | Phone [...] knee | Eugene Shrestha, | [address] | | | | | pain, | MD [address] | [place], | | | | | unspecified | [address] | [place] | | | | | chronicity | [place], | [address] | | | | | Procedures | [place] [address] | Phone: | | | | | MRI Knee | Phone: | [phone] | | | | | Right wo | [phone] | Fax: | | | | | Contrast | Fax: | [phone] | | | | | | [phone] | | +--------+--------+ + + + + Reason for Visit + + + | Reason | Comments | + + + | Follow-up | Right knee pain onset 02/22/19 *WANTS INJECTION* | + + + Evaluate & Treat [...] | | | chronicity, | STREET | [place] | | | | | unspecified | [place], | [place] | | | | | laterality | [place] [address] | [address] Phone: | | | | | | Phone: | [phone] | | | | | | [phone] | Fax: | | | | | | Fax: | [phone] | | | | | | [phone] | | +--------+ + + + + + Encounter Details +--------+---------+ + + + | Date | Type | Department | Care Team | Description | +--------+---------+ + + + | 03/28/ | Office | [facility] | Abrahan Samaniego MD | Right knee pain, | | 2018 | Visit | ORTHOPEDIC SURGERY | [address] [place] [address] | unspecified | | | | [address] [place] [address] [place] | [place] | chronicity (Primary | | | | [place] | [id number] | Dx); Acute pain of | | | | [address] | | right knee | | | | [phone] | Eugene Watkins | | | | | | MD Fady [address] [place] [address] | | | | | | [place] | | | | | | [address] | | | | | | | [...] Weight | 70.3 kg (155 lb) | 03/28/2019 9:20 AM | | | | | PDT | | + + + + + | Height | 162.6 cm (5' 4") | 03/28/2019 9:20 AM | | | | | PDT | | + + + + + | Body Mass Index | 26.61 | 03/28/2019 9:20 AM | | | | | PDT | | + + + + + documented in this encounter Progress Notes Eugene Watkins MD - 03/28/2019 9:30 AM PDTLaura states that she has had right knee pain for approximately one half of a year. She does not recall any specific injury but note s that the right knee pain is an aching pain that is particularly bothersome at night. She applies rest, ice, compression, and elevation which helps transiently. She cannot take regu lar anti-inflammatory medication because of concern for kidney function. The pain is partic ularly bothersome after she sits for period of time. She is working half time at a [employer] y position at the [email or web address]. She would like to pursue appropriate diagn osis and treatment. Examination: Exam of the right knee reveals no abnormality to inspection. The knee is stab le to gentle stress testing. The knee is tender to palpation diffusely over the medial join t line. Neurovascular function is intact to the right foot. Imaging: X-rays of the right knee show minimal degenerative change Advice: Further investigation is warranted and we therefore will obtain an MRI scan of this patient's right knee and we will see her back in our office following completion of this st udy for discussion and decision making.Electronically signed by Eugene Watkins MD at 1 6:56 PM PDTdocumented in this encounter Plan of Treatment +--------+---------+ + + + | Date | Type | Specialty | Care Team | Description | +--------+---------+ + + + | 04/29/ | Office | Internal Medicine | Abrahan Samaniego MD | | | 2019 | Visit | | [place] | | | | | | [place] | | | | | | [address] | | | | | | | | +--------+---------+ + + + | 07/25/ | Office | Cardiology | Renetta, | | | 2020 | Visit | | [address] | | | | | | [place] | | | | | | [place] [address] | | | | | | [phone] | | | | | | | | +--------+---------+ + + + | 09/03/ | Office | Endocrinology | Cheryl Zee MD | | | 2020 | Visit | | [address] [place] | | | | | | [address] [place] | | | | | | [phone] | | | | | | | | +--------+---------+ + + + + +---------+--------+ + + | Name | Type | Priori | Associated Diagnoses | Order Schedule | | | | ty | | | + +---------+--------+ + + | XR Knee Right 4 + Vw | Imaging | Routin | Right knee pain, | Expected: | | | | e | unspecified | 03/22/2019, Expires: | | | | | chronicity Acute | 03/22/2020 | | | | | pain of right knee | | + +---------+--------+ + + documented as of this encounter Results MRI Knee Right wo [...] unspecified chronicity - Primary | + + | Acute pain of right knee | + + documented in this encounter
--- OUTSIDE RECORDS SUMMARY | ~2020-01-04 | XMS | Encounter Summary ---
Demographics + + + | Address | [address] | | | [place] [address] | + + + | Home Phone [...] Author | [facility] [...] [place], | | | | | [place] [address] | | + + + + + | Ryan Vogt | ECON | Unknown | | + + + + + | Rob Vogt | ECON | Unknown | | + + + + + Care Team Providers + +------+ + | Care Solution Mixer Name | Role | Phone | + +------+ + | Abrahan Samaniego MD | PCP | | + +------+ + Reason for Visit + + + | Reason | Comments | + + + | Hypertension | | + + + | Dizziness | | + + + Encounter Details +--------+ + + + + | Date | Type | Department | Care Team | Description | +--------+ + + + + | 09/08/ | Emergency | [facility] | Trem[place], | Hypertensive urgency | | 2014 | | [facility] | Ricco Alexis MD [address] | (Primary Dx); | | | | [facility] [address] | [facility] | Hyperlipidemia; | | | | [place], [place] | [place] [address] | Preventative health | | | | [address] | [phone] | care | | | | [phone] | | | +--------+ + + + [...] + + + | Blood Pressure | 127/70 | 09/08/2014 10:27 PM | | | | | PDT | | + + + + + | Pulse | 69 | 09/08/2014 10:27 PM | | | | | PDT | | + + + + + | Temperature | 36 C (96.8 F) | 09/08/2014 8:53 PM | | | | | PDT | | + + + + + | Respiratory Rate | 16 | 09/08/2014 8:53 PM | | | | | PDT | | + + + + + | Oxygen Saturation | 97% | 09/08/2014 10:27 PM | | | | | PDT | | + + + + + | Inhaled Oxygen | - | - | | | Concentration | | | | + + + + + | Weight | 66.2 kg (146 lb) | 09/08/2014 8:53 PM | | | | | PDT | | + + + + + | Height | 160 cm (5' 3") | 09/08/2014 8:53 PM | | | | | PDT | | + + + + + | Body Mass Index | 25.86 | 09/08/2014 8:53 PM | | | | | PDT | | + + + + + documented in this encounter Discharge Instructions Instructions Ricco Penaloza MD - 09/08/2014Home and rest tonsanthosh. Line starting to de la rosa check your blood pressure and heart rate twice daily and keep a log of these readings . Call Dr. Samaniego's office Wednesday morning to arrange follow-up and to relay the blood pres sures. If you are symptomatic and have elevated blood pressure, for instance if you feel the dizzi ness again or if you feel chest pain, then return to the ER. AttachmentsThe following attachments cannot be sent through Care Everywhere.BLOOD PRESSURE, DISCHARGE INSTRUCTIONS: TAKING YOUR (IRAQI)documented in this encounter Medications at Time of [...] + + documented as of this encounter Procedure Notes Benigno Deras MD - 09/12/2014 7:07 AM PDTAssociated Order(s): ECG 12 LEADEKG of 5, time 21:25:08. Underlying normal sinus rhythm, normal EKG. documented in this encounter ED Notes Ricco Penaloza MD - 09/08/2014 10:14 PM PDTFormatting of this note might be differe nt from the original. Former[facility] Oliva Vogt Emergency Department Encounter Note [address] [place] [id number] PCP:Abrahan Samaniego [phone] CHIEF COMPLAINT: Chief Complaint Patient presents with Hypertension Dizziness ED Room: ED10/ED10 HPI Oliva Vogt is a 64 y.o. female who presents to the Emergency Department for evaluation. The patient started feeling some dizziness tonight and checked her blood pressure and found it to be elevated. She just felt generally dizzy but otherwise did not feel abnormal. She does not have any headache, chest pain, shortness of breath, or abdominal pain. She has ne mac had hypertension and has never taken blood pressure medications in the past. 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 PAST MEDICAL & SURGICAL HISTORY Past Medical [...] 05/16/2012 Past Surgical History Procedure Laterality Date Bilateral tubal ligation. Left ganglion cyst removal 1970 Endometrial biopsy in 2006: benign. Skulll biopsy 09/28/2011 (Benign) Colonoscopy 03/12/2014 COLONOSCOPY; Laterality: N/A; Surgeon: Shjai Thornton MD; Location: [facility] MEDICAL PROCED URE UNIT CURRENT MEDICATIONS Previous Medications CALCIUM CARBONATE-VITAMIN D 600-125 MG-UNIT TABS Take by mouth Daily. CHOLECALCIFEROL (VITAMIN D-3) 1,000 UNITS TABLET Take 1,000 Units by mouth Daily. LEVOTHYROXINE (SYNTHROID, LEVOTHROID) 100 MCG TABLET Take 100 mcg by mouth every mornin g (before breakfast). OMEPRAZOLE (PRILOSEC) 20 MG CAPSULE Take 1 capsule by mouth Daily. PREDNISONE (DELTASONE) 5 MG TABLET Take 1 tablet by mouth daily with one 1 mg tab (tota l 6mg by mouth daily ) ALLERGIES Allergies Allergen Reactions Succinylcholine Chloride Other (See Comments) Hard to wake up FAMILY AND SOCIAL HISTORY Family History Problem Relation Age of Onset High blood pressure Mother 84 of Aortic dissection Other (See Comment) Father 74 of hemorrgagic CVA History Social History Marital Status: Spouse Name: N/A Number of Children: N/A Years of Education: N/A Social History Main Topics Smoking status: Never Smoker Smokeless tobacco: Never Used Alcohol Use: No Drug Use: No Sexual Activity: None Other Topics Concern None Social History Narrative 43rd wedding anniversary was 03/20/2011 which is a big deal because her has been s o ill. REVIEW OF SYSTEMS As in history of present illness. A 10 system review was otherwise negative. PHYSICAL EXAM VITAL SIGNS: (first vital signs):Temp: 36 C (96.8 F) Pulse: 72 Resp: 16 SpO2: 100 % BP: 185/91 mmHg Constitutional: female patient, No acute distress HEENT: Atraumatic, PERRL, Oropharynx benign. Neck: Supple with full range of motion. No JVD and no lymphadenopathy. Respiratory: Good air movement bilaterally. No wheezes, No, rales. Cardiovascular: Normal S1 S2 Abdomen: Soft, nontender. No rebound, guarding, or masses. Bowel tones normal. No pulsa tile masses Back: Within normal limits Extremities: Nontender. No edema, no calf asymmetry. Present distal pulses. Skin: Warm, Dry, No rashes Neurologic: Alert & oriented. Cranial nerves II-XII intact , Gait and speech are normal Psychiatric: Normal mood, affect and judgement. EKG 12-lead EKG shows normal sinus rhythm at a rate of 64 with no ischemic changes ED COURSE & MEDICAL DECISION MAKING Pertinent Labs & Imaging studies were reviewed along with EMS notes and jail record s if applicable. (See chart for details) Medications and Allergy list reviewed. Nurses note and old records were reviewed The patient was seen and examined, because she was symptomatic and hypertensive I did give her a single dose of clonidine here and checked an EKG. Her EKG was reassuring and with the clonidine her blood pressure came down a little bit. She was asymptomatic as her blood pre ssure came down. I think she clearly has symptomatic hypertension, but I'm not certain whet her she has hypertension chronically. She does not routinely check her blood pressures. Th erefore, because she is feeling well tonight, she was discharged home. She will take her bl ood pressure and pulse rate twice daily and contact Dr. Samaniego with those readings next we k and make an appointment. I discussed with her that between now and then if she has recurr ent symptoms, specifically with dizziness, chest pain, or shortness of breath then she shoul d return to the ER. FINAL IMPRESSION 1. Hypertensive urgency Follow-up Information Schedule an appointment as soon as possible for a visit with Abrahan Samaniego MD. Specialty: Internal Medicine Contact information: [address] [place], [place] [address] [id number] Ricco Penaloza MD 09/08/14 2217 do cumented in this encounter Miscellaneous Notes ED Triage Notes - Tru Guzman RN - 09/08/2014 8:52 PM PDTStates elevated BP with no history of HTN, states lightheaded and dizzy with sudden onset 2 hours PTAElectronically sig lesley by Tru Guzman RN at 09/08/2014 8:53 PM PDTdocumented in this encounter Plan of Treatment +--------+---------+ + + + | Date | Type | Specialty | Care Team | Description | +--------+---------+ + + + | 04/29/ | Office | Internal Medicine | Abrahan Samaniego MD | | | 2019 | Visit | | [address] [place] [address] | | | | | | [place] | | | | | | [address] | | | | | | | | +--------+---------+ + + + | 07/25/ | Office | Cardiology | Renetta, | | | 2020 | Visit | | P[facility] | | | | | | [place], | | | | | | [place] [address] | | | | | | [phone] | | | | | | | | +--------+---------+ + + + | 09/03/ | Office | Endocrinology | Cheryl Zee MD | | | 2020 | Visit | | [address] | | | | | | [address] [place] | | | | | | [phone] | | | | | | | | +--------+---------+ + + + documented as of this encounter Procedures + +--------+ + + + | Procedure Name | Priori | Date/Time | Associated Diagnosis | Comments | | | ty | | | | + +--------+ + + + | ECG 12 LEAD | STAT | 09/12/2014 | | Results for this | | | | 7:08 AM | | procedure are in the | | | | PDT | | results section. | + +--------+ + + + documented in this encounter Results ECG 12 lead (09/12/2014 7:08 AM PDT) + + + | Narrative | Performed At | + + + | Benigno Deras MD 09/12/2014 7:08 EKG of 09/08/14, time | | | 21:25:08. Underlying normal sinus rhythm, normal EKG. | | + + + documented in this encounter Visit Diagnoses + + | Diagnosis | + + | Hypertensive urgency - Primary Unspecified essential hypertension | + + | Hyperlipidemia Other and unspecified hyperlipidemia | + + | Preventative health care Routine general medical examination at a health care | | facility | + + documented in this encounter Administered Medications + +--------+ +--------+------+------+ | Medication Order | MAR | Action | Dose | Rate | Site | | | Action | Date | | | | + +--------+ +--------+------+------+ | cloNIDine (CATAPRES) tablet 0.2 | Given | 09/09/19 | 0.2 mg | | | | mg 0.2 mg, Oral, ONCE, Sat | | 15 9:17 | | | | | 09/08/14 at 2130, For 1 dose | | PM PDT | | | | + +--------+ +--------+------+------+ +---+---+ | | | +---+---+ + +-------+ +--------+---+---+ | lisinopril (PRINIVIL,ZESTRIL) | Given | 09/09/19 | 2.5 mg | | | | tablet 2.5 mg 2.5 mg, Oral, | | 15 11:15 | | | | | ONCE, 09/08/14 at 2230, For 1 | | PM PDT | | | | | dose | | | | | | + +-------+ +--------+---+---+ +---+---+ | | | +---+---+ documented in this encounter
--- OUTSIDE RECORDS SUMMARY | ~2020-01-04 | XMS | Encounter Summary ---
Demographics + + + | Address | [address] | | | [place] [address] | + + + | Home Phone | | + + + | Preferred Language | Unknown | + + + | Marital Status | | + + + | Sikhism Affiliation | 1027 | + + + | Race | Unknown | + + + | Ethnic Group | Unknown | + + + Author + + + | Author | [facility] | | | and [place] | + + + | Organization | [facility] | | [...] [place], | | | | | [place] [address] | | + + + + + | Ryan Vogt | ECON | Unknown | | + + + + + | Rob Vogt | ECON | Unknown | | + + + + + Care Team Providers + +------+ + | Care Systems Specialist Name | Role | Phone | + +------+ + | Abrahan Samaniego MD | PCP | | + +------+ + Reason for Visit + + + | Reason | Comments | + + + | Leg Swelling | | + + + Encounter Details +--------+---------+ + + + | Date | Type | Department | Care Team | Description | +--------+---------+ + + + | 10/06/ | Office | [facility] INTER[facility] | Abrahan Samaniego MD | Edema, unspecified | | 2018 | Visit | MEDICINE [address] [place] [address] | [address] [place] [address] | type (Primary Dx) | | | | [place], | [place] | | | | | [place] [address] | [address] | | | | | [phone] | | | +--------+---------+ + + + [...] + | Blood Pressure | 110/64 | 10/06/2017 2:34 PM | | | | | PDT | | + + + + + | Pulse | 68 | 10/06/2017 2:34 PM | | | | | PDT | | + + + + + | Temperature | 36.6 C (97.8 F) | 10/06/2017 2:34 PM | | | | | PDT | | + + + + + | Respiratory Rate | 18 | 10/06/2017 2:34 PM | | | | | PDT | | + + + + + | Oxygen Saturation | 97% | 10/06/2017 2:34 PM | | | | | PDT | | + + + + + | Inhaled Oxygen | - | - | | | Concentration | | | | + + + + + | Weight | 68.1 kg (150 lb 2.1 | 10/06/2017 2:34 PM | | | | oz) | PDT | | + + + + + | Height | 160 cm (5' 3") | 10/06/2017 2:34 PM | | | | | PDT | | + + + + + | Body Mass Index | 26.59 | 10/06/2017 2:34 PM | | | | | PDT | | + + + + + documented in this encounter Progress Notes Abrahan Samaniego MD - 10/06/2017 2:45 PM PDT 10/06/2017 Oliva Vogt 1950 History: Oliva Vogt is a 67 y.o. female here for : EDEMA: She says that on 09/21/17 she was very thristy and she developed bilateral lower extr emity edema. She thought that maybe she was diabetic but she checked her sugar with her husb and's machine and it was "normal". She kept track on a daily basis and it went on for 11 day s before it was suddenly better. She is still thirsty. She says that the day it started sh e spent the day with her grandson and she sat a lot. No chest pain, palpitations, shortness of breath, orthopnea, PND, lightheadedness, syncope, near syncope, exertional pain in the ar m/jaw/shoulder/back. No new supplements or change in her diet. Current Outpatient Prescriptions Medication Sig Dispense Refill atorvaSTATin (LIPITOR) 10 mg tablet take 1 tablet by mouth AT NIGHT (Patient taking dif ferently: take 1 tablet by mouth at night) 90 tablet 2 Geuvzqy-Dljqdygxm-Rekevmj D (CALCIUM MAGNESIUM PO) Take by mouth. cholecalciferol (VITAMIN D-3) 1,000 units tablet Take 2 tablets by mouth Daily. (Patien t taking differently: Take 2,000 Units by mouth Daily. Patient taking 2,000u once daily) levothyroxine (SYNTHROID) 100 mcg tablet Take 1 tablet by mouth every morning (before b reakfast). 90 tablet 4 potassium chloride (KLOR-CON) 10 mEq CR tablet Take 1 tablet by mouth Daily. 90 tablet 3 predniSONE (DELTASONE) 5 mg tablet One daily most days, increase to 3 tabs daily for 3 days when sick 120 tablet 4 No current facility-administered medications for this visit. Allergies Allergen Reactions Succinylcholine Chloride Other (See Comments) Hard to wake up Review of Systems: .Denies hemoptysis, productive cough, wheezing, shortness of breath, dyspnea on exertion. No chest pain, palpitations, shortness of breath, orthopnea, PND, lightheadedness, syncope, near syncope, exertional pain in the arm/jaw/shoulder/back, peripheral edema. Physical Exam: BP 110/64 | Pulse 68 | Temp 36.6 C (97.8 F) (Temporal) | Resp 18 | Ht 1.6 m (5' 3") | Wt 68.1 kg (150 lb 2.1 oz) | SpO2 97% | ? No | BMI 26.59 kg/m GEN: No acute distress. Somewhat Cushingoid HEENT:EOMI, OP normal CHEST: Clear to auscultation. No wheezes, rales, rhonchi. Normal effort and movement CAR: Rhythm:regular Murmur:no Jese:no JVP:no Pulses:normal radial and carotid ABD: non-distended, non-tender. No hepatosplenomegaly EXT: No clubbing, cyanosis, or edema Assessment: Plan 1. Edema, unspecified type Resolved. Unclear etiology. documented in this enc ounter Plan of [...] [place] | | | | | | [address] | | | | | | | | +--------+---------+ + + + | 07/25/ | Office | Cardiology | Renetta, | | | 2020 | Visit | | [address] | | | | | | [place], | | | | | | [place] [address] | | | | | | [phone] | | | | | | | | +--------+---------+ + + + | 09/03/ | Office | Endocrinology | Cheryl Zee MD | | | 2020 | Visit | | [address] [place] [address] | | | | | | [address] [place] | | | | | | [phone] | | | | | | | | +--------+---------+ + + + documented as of this encounter Procedures + +--------+ + + + | Procedure Name | Priori | Date/Time | Associated Diagnosis | Comments | | | ty | | | | + +--------+ + + + | IMAGING REPORT - | | 01/20/2018 | | Results for this | | EXTERNAL SCAN | | 12:00 AM | | procedure are in the | | | | PDT | | results section. | + +--------+ + + + documented in this encounter Results IMAGING REPORT - EXTERNAL SCAN (01/20/2018 12:00 AM PDT) + + + | Narrative | Performed At | + + + | Ordered by an | | | unspecified provider. | | + + + documented in this encounter Visit Diagnoses + + | Diagnosis | + + | Edema, unspecified type - Primary | + + documented in this encounter
--- OUTSIDE RECORDS SUMMARY | ~2020-01-04 | XMS | Encounter Summary ---
Demographics + + + | Address | [address] | | | [place] [address] | + + + | Home Phone [...] [facility]ly [facility] [...] [place], | | | | | [place] [address] | | + + + + + | Ryan Vogt | ECON | Unknown | | + + + + + | Rob Vogt | ECON | Unknown | | + + + + + Care Team Providers + +------+ + | Care Molder Bench Name | Role | Phone | + +------+ + | Abrahan Samaniego MD | PCP | | + +------+ + Encounter Details +--------+ + + + + | Date | Type | Department | Care Team | Description | +--------+ + + + + | 05/10/ | Hospital | [facility] | Cheryl Zee MD | Growth hormone | | 2019 | Encounter | [facility] | [address] [place] | deficiency ([facility]); | | | | LABORATORY [address] | [address] [place], [place] | Hypopituitarism | | | | [address] [place], [place] | [address] | ([facility]); Secondary | | | | [address] | | hyperparathyroidism | | | | [phone] | | ([facility]) | +--------+ + + + + Social [...] Miscellaneous Notes Result Cheryl Dominguez MD - 05/10/2019 2:15 PM PSTPlease advise her to increas e vit D to 5000 IU daily for one month, after that take 2000 IU daily without missing pills. Thanks esult Cheryl Dominguez MD - 05/10/2019 2:15 PM PSTLaura, Your tests show vit d is a bit lower than desired, we would like vitamin D level of 30-50.. Would you be able to increase your vitamin D intake for example if you take 1000 units a da y you should increase to 2000 units daily vitamin D3 Thyroid test is normal, calcium level and phosphorus level are normal; kidney function test is stable. IGF-1 for growth hormone measurement will take 1-2 weeks to return. Nice to see you today, let me know if questions about vit D Best regards, MCosma do cumented in this [...] [place] | | | | | | [address] | | | | | | | | +--------+---------+ + + + | 07/25/ | Office | Cardiology | Renetta, | | | 2020 | Visit | | [facility] [address] | | | | | | [place] | | | | | | [place] [address] | | | | | | [phone] | | | | | | | | +--------+---------+ + + + | 09/03/ | Office | Endocrinology | Cheryl Zee MD | | | 2020 | Visit | | [address] [place] [address] | | | | | | [address] [place] | | | | | | [phone] | | | | | | | | +--------+---------+ + + + documented as of this encounter Procedures + +--------+ + + + | Procedure Name | Priori | Date/Time | Associated Diagnosis | Comments | | | ty | | | | + +--------+ + + + | VITAMIN D, | Routin | 05/10/2019 | Secondary | Results for this | | DEFICIENCY SCREEN | e | 2:19 PM | hyperparathyroidism | procedure are in the | | (25-HYDROXY) | | PST | (HCC) | results section. | + +--------+ + + + | INSULIN-LIKE GROWTH | Routin | 05/10/2019 | Growth hormone | Results for this | | FACTOR 1 | e | 2:19 PM | deficiency (HCC) | procedure are in the | | | | PST | | results section. | + +--------+ + + + | T4, FREE | Routin | 05/10/2019 | Hypopituitarism | Results for this | | | e | 2:19 PM | (HCC) | procedure are in the | | | | PST | | results section. | + +--------+ + + + | PHOSPHORUS | Routin | 05/10/2019 | Hypopituitarism | Results for this | | | e | 2:19 PM | (HCC) | procedure are in the | | | | PST | | results section. | + +--------+ + + + | COMPREHENSIVE | Routin | 05/10/2019 | Hypopituitarism | Results for this | | METABOLIC PANEL | e | 2:19 PM | (HCC) | procedure are in the | | | | PST | | results section. | + +--------+ + + + documented in this encounter Results Comprehensive Metabolic Panel (05/10/2019 2:19 PM PST) [...] | | LABORATORY | | | | [facility] [address], | | [place] | | | | [place] [address] | | | | + + + + + + + + | Specimen | + + | Blood specimen | | (specimen) | + + + + + + + | Performing | Address | City/State/Zipcode | Phone Number | | Organization | | | | + + + + + | [facility] | [address] | [place] [address] | | | [facility] | | | | | LABORAT[facility] | | | | + + + [...] [facility] | | | | by [facility] [address], | | [facility] | | | | [place] [address] | | HEART | | | |Performed by [facility] [address], [place] [address] | | MEDICAL | | | | [...] + + | [facility] | [address] | [place] [address] | | | [facility] | | | | | LABORATORY [place] [...] | | 25 Hydroxy | Performed by [facility] [address] | ng/mL | [facility] | | | | [address] [place], [place] | | HEART | | | | [address] | | MEDICAL | | | | [...] + + | [facility] | [address] | [place] [address] | | | [facility] | | | | | LABORATORY [facility] | | | | + + + + + T4Barry (05/10/2019 2:19 PM PST) + + + + -+ + | Component | Value | Ref Range | Performed | Pathologist | | | | | At | Signature | + + + + -+ + | FT4 | 1.45Comment: Performed | 0.70 - 1.50 | [facility] | | | | by [facility] [address], | ng/dL | [facility] | | | | [place], [place] | | HEART | | | |Performed by [facility] [address], [place], [place] | | MEDICAL | | | [...] + + | [facility] | [address] | [place] [address] | | | [facility] | | | | | LABORATORY [facility] | | | | + + + + + Insulin-Like Growth Factor 1 (05/10/2019 2:19 PM [...] [facility] | | | factor 1 | [id number] | | HEART | | | | [place], [place] | | MEDICAL | | | | [phone] | | [facility] | | | | [phone] | | LABORATORY | | | | [...] + + | [facility] | [address] | [place] [address] | | | [facility] | | | | | LABORATORY [facility] | | | | + + + + + documented in this encounter Visit Diagnoses + + | Diagnosis | + + | Growth hormone deficiency (HCC) Pituitary dwarfism | + + | Hypopituitarism (HCC) Panhypopituitarism | + + | Secondary hyperparathyroidism (HCC) Secondary hyperparathyroidism (of renal origin) | + + documented in this encounter"
--- OUTSIDE RECORDS SUMMARY | ~2020-01-04 | XMS | Encounter Summary ---
Demographics + + + | Address | [address] | | | [place] [address] | + + + | Home Phone [...] | Author | [facility] | | | and [place] [...] [place], | | | | | [place] [address] | | + + + + + | Ryan Vogt | ECON | Unknown | | + + + + + | Rob Vogt | ECON | Unknown | | + + + + + Care Team Providers + +------+ + | Care Case Management Assistant Name | Role | Phone | + +------+ + | Abrahan Samaniego MD | PCP | | + +------+ + Reason for Visit +--------+--------+ + | Reason | Onset | Comments | | | Date | | +--------+--------+ + | Other | 03/21/ | | | | 2017 | | +--------+--------+ + Encounter Details +--------+ + + + + | Date | Type | Department | Care Team | Description | +--------+ + + + + | 03/21/ | Telephone | [facility] | Abrahan Samaniego MD | Other | | 2017 | | MEDICINE [address] [place] [address] | [address] [place] [address] | | | | | [place], | [place] | | | | | [place] [address] | [address] | | | | | [phone] | | | +--------+ + + + [...] Telephone Encounter - Christina Wilson LPN - 03/21/2018 2:56 PM PDTSpoke with patient - abiodun montalvo was requesting to have her son establish care (currently in hospital and needs PCP upon kylah young) - advised Dr. Samaniego unable to take new patients at this time. Suggested Tere rogers APRN here in Internal Medicine.Electronically signed by Christina Wilson LPN at 018 3:01 PM PDTTelephone Encounter - Cesilia Tamez RN - 03/21/2018 2:11 PM PDTRe-amy white to Internal Medicine. elephone Encount er - Marla Cobian - 03/21/2018 1:22 PM PDTPatient called to check on status of [facility]. Please call [phone]. elephone Encounter - Toña Ramsey - 03/21/2018 8:21 AM PDTPatient is request ing to speak with nurse stated she has a question but did not disclose information. Patient can be reached at [phone] signed by Toña Ramsey at 03/21/2018 8:23 AM P DTdocumented in this encounter Plan of Treatment +--------+---------+ + + + | Date | Type | Specialty | Care Team | Description | +--------+---------+ + + + | 04/29/ | Office | Internal Medicine | Abrahan Samaniego MD | | | 2019 | Visit | | [address] | | | | | | [place] | | | | | | [address] | | | | | | | | +--------+---------+ + + + | 07/25/ | Office | Cardiology | Renetta, | | | 2020 | Visit | | [facility] [address] | | | | | | [place], | | | | | | [place] [address] | | | | | | [phone] | | | | | | | | +--------+---------+ + + + | 09/03/ | Office | Endocrinology | Cheryl Zee MD | | | 2020 | Visit | | [address] | | | | | | [address] [place] | | | | | | [phone] | | | | | | | | +--------+---------+ + + + documented as of this encounter Visit Diagnoses Not on filedocumented in this encounter"
--- OUTSIDE RECORDS SUMMARY | ~2020-01-04 | XMS | Encounter Summary ---
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, | | | | | [place] | [place] [address] | | | | | [address] | [phone] | | | | | [phone] | | | +--------+ + + + [...] + + + | Blood Pressure | 115/58 | 12/26/2018 12:45 PM | | | | | PDT | | + + + + + | Pulse | 66 | 12/26/2018 12:45 PM | | | | | PDT | | + + + + + | Temperature | 36.7 C (98.1 F) | 12/26/2018 10:21 AM | | | | | PDT | | + + + + + | Respiratory Rate | 18 | 12/26/2018 6:26 AM | | | | | PDT | | + + + + + | Oxygen Saturation | 98% | 12/26/2018 12:45 PM | | | | | PDT | | + + + + + | Inhaled Oxygen | - | - | | | Concentration | | | | + + + + + | Weight | 72.4 kg (159 lb 9.8 | 12/26/2018 6:26 AM | | | | oz) | PDT | | + + + + + | Height | 162.6 cm (5' 4") | 12/26/2018 6:26 AM | | | | | PDT | | + + + + + | Body Mass Index | 27.4 | 12/26/2018 6:26 AM | | | | | PDT | | + + + + + documented in this encounter Discharge Instructions Instructions Selma Griffiths, RN - 12/26/2018 Recovery After Procedural Sedation (Adult) You have been given medicine by vein to make you sleep during your procedure. This may have included both a pain medicine and sleeping medicine. Most of the effects have worn off. But you may still have some drowsiness for the next 6 to 8 hours. Home care Follow these guidelines when you get home: For the next 8 hours, you should be watched by a responsible adult. This person should m sebastian sure your condition is not getting worse. Don't drink any alcoholfor the next [address], operate dangerous machinery,make important business or personal decisions , or sign legal documentsduring the next 24 hours. Note: Your healthcare provider may tell you not to take any medicine by mouth for pain or s leep in the next 4 hours. These medicines may react with the medicines you were given in the hospital. This could cause a much stronger response than usual. Follow-up care Follow up with your healthcare provider if you are not alert and back to your usual level o f activity within 12 hours. When to seek medical advice Call your healthcare provider right away if any of these occur: Drowsiness gets worse Weakness or dizziness gets worse Repeated vomiting You can't be awakened Date Last Reviewed: 03/24/[id number] [employer]. [address] [place] [address], [place] [id number]. All righ ts reserved. This information is not intended as a substitute for professional medical care. Always follow your healthcare professional's instructions. documented in this [...] + +---------+ + + | amLODIPine | take 1 tablet by | 90 | 3 | 12/24/19 | | | (NORVASC) 5 mg | mouth once daily | tablet | | 19 | 9 | | tablet | | | | | | + + + +---------+ + + | atorvaSTATin | | | 0 | 12/24/19 | | | (LIPITOR) 10 mg | | | | 19 | 9 | | tablet | | | | | | + + + +---------+ + + | atorvaSTATin | take 1 tablet by | 90 | 3 | 12/24/19 | | | (LIPITOR) 20 mg | mouth once daily | tablet [...] OMNITROPE 5 | | | 0 | 12/24/19 | | | MG/1.5ML SOLN | | [...] documented as of this encounter H&P Notes Benigno Deras MD - 12/26/2018 6:55 AM PDTMs. Vogt's chart was reviewed in detail, and no changes have occurred since the recent note. Also, she was examined by me today and there are no changes in the heart and lung exam. Ms. Vogt is still appropriate candidate for left heart catheterization and we will proceed with that today. An explanation of the procedure, including the risks, benifits and alternatives to the procedure were discussed wi th the patient and consent has been obtained. 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 Sh e is being seen today for classic angina, suggesting myocardial ischemia. Patient has been having chest pain/chest pressure while walking for the last six months but was not a concern to her, until her passing in August 2018. Chest pain and shortnes s of breath relieved by rest. She was then seen at [facility] emergency department on 9, for chest pain and shortness of breath on exertion. She was started on metoprolol and not ice the chest pain was resolved a but made her feel like "she is in slow motion". Today, patient is feeling good, since she has not been moving as much lately. 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 There is no chest pain o r [...] Laterality: N/A; Surgeon: Shaji Thornton MD; Location: [facility] MEDICAL PROCED RE UNIT CYST REMOVAL Left 1970 ENDOMETRIAL [...] is bilateral BKA. She works at the [employer]. She doesn't exerc ise because she is [...] August 2018. She was then seen at [facility] emergency department on 11/10/18, for ches t [...] by walking at her job at the [employer]. There is no signs and symptoms of overt congestive heart failure. She is in a class II of [place] [facility] t[facility] functional class. There is [...] secondary azotemia on April 01, 1974 at [facility]. B. She is on prednisone 6 mg and somatropin 5.8 mg. PLAN: 1. I spend time at length talking about natural course, treatment and prognosis of classic angina, suggesting myocardial ischemia. 2. Patient is candidate for left heart catheterization via right radial. The risks and negra efits of the procedure including alternative treatment were discussed with the patient in [facility]. The patient decides to proceed with [...] behalf of, and in the presence of Benigno weiss MD. I have reviewed and edited this note. Kay Mott, Zoology Teacher 12/05/2018 I, Benigno Deras MD, personally performed the services described in this documentation, as scribed in my presence and it is both accurate and complete. Kay Mott, Zoology Teacher 12/05/2018 8:36 Electronically signed by: Benigno Deras MD [facility] 12/05/2018 Portions of this chart may have been created with [employer] voice recognition software. Occasi onal wrong-word or [...] | 2019 | Visit | | [address] [place] [place] [address] | | | | | | [place] | | | | | | [phone] | | | | | | | | +--------+---------+ + + + | 07/25/ | Office | Cardiology | Renetta, | | | 2020 | Visit | | [place] [address] | | | | | | [place], | | | | | | [place] [address] | | | | | | [phone] | | | | | | | | +--------+---------+ + + + | 09/03/ | Office | Endocrinology | Cheryl Zee MD | | | 2020 | Visit | | [address] | | | | | | [address] [place] | | | | | | [phone] | | | | | | | | +--------+---------+ + + + documented as of this encounter Procedures + +--------+ + + + | Procedure Name | Priori | Date/Time | Associated Diagnosis | Comments | | | ty | | | | + +--------+ + + + | CV LHC | Routin | 12/26/2018 | | Results for this | | | e | 11:08 AM | | procedure are in the | | | | PDT | | results section. | + +--------+ + + + | BASIC METABOLIC | STAT | 12/26/2018 | | Results for this | | PANEL | | 6:30 AM | | procedure are in the | | | | PDT | | results section. | + +--------+ + + + documented in this encounter Results CV CARDIAC PROCEDURE (12/26/2018 11:08 AM PDT) + +-------+ + + + | Component | Value | Ref Range | Performed | Pathologist | | | | | At | Signature | + +-------+ + + + | LVEF-LVGRAM | 65 | % | [facility] | | | CARDIAC | | | | | | CATH | | | | | + +-------+ + + + + + | Specimen | + + | | + + + + ---+ | Narrative | Performed A t | + + ---+ | CARDIAC | [facility] | | CATHETERIZATION and CORONARY ANGIOGRAPHY PATIENT NAME/: Oliva | | | Alissa Vogt, (1950) | | | OF PROCEDURE: 12/26/2018 SUPERVISOR [employer]S: Benigno Deras MD | | | PROCEDURES PERFORMED:Coronary AngiographyLeft Heart | | | CatheterizationLeft Ventriculography Indications: Chest pain | | | DESCRIPTION OF PROCEDURE: Informed consent was obtained from the | | | patient, and a time-out was performed to verify the patient's | | | identification and planned procedure. The patient's right wrist was | | | then prepped and draped in the usual sterile fashion, and anesthetized | | | with 1 mL of buffered 1% lidocaine. For arterial access modified | | | Seldinger technique was used to place a 6 Fr. sheath in the right | | | radial artery (a normal Jorge's test was performed prior to the | | | procedure). Right heart catheterization was not performed on this | | | patient. After crossing the aortic valve, left ventriculography was | | | performed in the WHATLEY projection. Selective coronary angiogram was | | | then performed in several sagittal and oblique projections. Silvana and | | | [facility] diagnostic catheters were used for this procedure. The | | | patient received a total of 2 mg of Versed and 100 Mcg of fentanyl | | | intravenously for conscious sedation during the procedure. A total | | | of 90 mL Omnipaque 350 contrast was utilized. During procedure a | | | total of 400 mcg nitroglycerin, and 400 mcg nicardipine were given via | | | the radial sheath, and 4000 units heparin was given intravenously. | | | The procedure had no immediate complications. At the conclusion of | | | the procedure, the sheath was removed and hemostasis obtained with a | | | TR hemostatic band. I reviewed the patient's pre-sedation assessment | | | and vital signs, supervised and directed the administration of | | | moderate sedation with continuous [id number] attendance. My | | | intra-service time was 30 minutes. See the procedure log for more | | | details. FINDINGS: Hemodynamics: Ao -124/74 mm Hg with a mean of 97 | | | mm HgLV -78/7 mm HgLVEDP -7 mm Hg Left ventriculography: The left | | | ventricular size and function were normal. LVEF is calculated at | | | 65%. There is no mitral valve regurgitation noted. Left main artery: | | | The left main artery is a medium caliber vessel that bifurcates | | | into the left anterior descending artery and left circumflex artery. | | | Left main artery has is free of disease. Left anterior descending | | | artery: The left anterior descending artery is a medium caliber | | | vessel that wraps around the apex and gives rise to 2 diagonal | | | branches. The vessel has mild diffuse disease. It gives rise to 2 | | | diagonal branches. Left circumflex artery: The left circumflex | | | artery is a large caliber vessel that is dominant. The vessel has | | | mild diffuse disease. It gives rise to 2 OM branches. Right | | | coronary artery: The right coronary artery is a small caliber vessel | | | that is non dominant. The vessel has an essentially normal | | | appearance. CONCLUSIONS:1. Mild coronary artery disease as | | | detailed above2. There is a left dominate circulation.3. Normal LV | | | systolic function with an EF of 65%4. Systemic blood pressure is | | | normal.5. There was successful hemostasis with a TR hemostatic band. | | | PLAN:1. Risk factor modification and Medical management. | | | | | | PRIMARY CARE PROVIDER:Abrahan Samaniego MD For additional detail as | | | to the procedures performed and the equipment that was utilized, | | | please refer to the Procedure Log. | | | | | | | | |FINDINGS: | | | | | |Hemodynamics: | | | | | |Ao -124/74 mm Hg with a mean of 97 mm Hg | | |LV -78/7 mm Hg | | |LVEDP -7 mm Hg | | | | | |Left ventriculography: The left ventricular size and function were | | |normal. LVEF is calculated at 65%. There is no mitral valve | | |regurgitation noted. | | | | | |Left main artery: The left main artery is a medium caliber vessel that | | |bifurcates into the left anterior descending artery and left circumflex | | |artery. Left main artery has is free of disease. | | | | | |Left anterior descending artery: The left anterior descending artery is a | | |medium caliber vessel that wraps around the apex and gives rise to 2 | | |diagonal branches. The vessel has mild diffuse disease. It gives rise to | | |2 diagonal branches. | | | | | |Left circumflex artery: The left circumflex artery is a large caliber | | |vessel that is dominant. The vessel has mild diffuse disease. It gives | | |rise to 2 OM branches. | | | | | | | | |Right coronary artery: The right coronary artery is a small caliber | | |vessel that is non dominant. The vessel has an essentially normal | | |appearance. | | | | | | | | | | | | | | | | | | | | |CONCLUSIONS: | | |1. Mild coronary artery disease as detailed above | | |2. There is a left dominate circulation. | | |3. Normal LV systolic function with an EF of 65% | | |4. Systemic blood pressure is normal. | | |5. There was successful hemostasis with a TR hemostatic band. | | | | | | | | |PLAN: | | |1. Risk factor modification and Medical management. | | | | | | | | | | | | | | | | | | | | | | | | | | |PRIMARY CARE PROVIDER: | | |Abrahan Samaniego MD | | | | | | | | |For additional detail as to the procedures performed and the equipment | | |that was utilized, please refer to the Procedure Log. | | | | | + + ---+ + +---------+ + + | Performing | Address | City/State[facility] | Phone Number | | Organization | | | | + +---------+ + + | [facility] | | | | + +---------+ + + Basic Metabolic Panel (12/26/2018 6:30 AM PDT) + + + + + [...] + | Anion Gap | 9 | 3 - 16 mmol/L | [facility] | | [facility] | [facility] | | | [facility] - | | | | | | LABORATORY | | + + + + + + | Glucose | 94 | 60 - 106 mg/dL | [facility] | [facility] | | | | | | [facility] | | | | | | [facility] - | | | | | | LABORATORY | | + + + + + + | BUN | 15 | 9 - 23 mg/dL | [facility] | [facility] | [facility] | [facility] | | | | | | [facility] - | | | | | | LABORATORY | | + + + + + + | Creatinine | 0.89 | 0.55 - 1.02 | [facility] | | | | | mg/dL | [facility] | | | | | | MEDICAL | | | | | | CENTER - | | | | | | LABORATORY | | + + + + + + | eGFR, | >60Comment: GLOMERULAR | >=60 | [facility] | | | non- | FILTRATION | mL/min/1.73m2 | [facility] | | | [place] | RATE,ESTIMATED | | MEDICAL | | | | mL/min/1.35x0Uovn than | | CENTER - | | [...] + + | Calcium | 9.6 | 8.7 - 10.4 | [facility] | | | | | mg/dL | [facility] | | | | | | MEDICAL | | | | | | CENTER - | | | | | | LABORATORY | | + + + + + + | BUN/Creatin | 16.9 | | [facility] | | | ine [...] + | [facility] | [address] | [place] | [phone] | | [facility] | | [address] | | | - LABORATORY | | | | + + + + + documented in this encounter Visit Diagnoses + + | Diagnosis | + + | Stable angina pectoris (HCC) | + + documented in this encounter Administered Medications + +--------+---------+------+------+------+ | Medication Order | MAR | Action | Dose | Rate | Site | | | Action | Date | | | | + +--------+---------+------+------+------+ + +---+ | acetaminophen (TYLENOL) tablet | | | 650 mg 650 mg, Oral, EVERY 6 | | | HOURS PRN, Pain, Fever, Starting | | | Wed12/26/18 at 1140, | | | Post-op/Phase II | | + +---+ | | | + +---+ | lidocaine 1%-EPINEPHrine | | | 1:100,000 injection 5 mL 5 mL, | | | Infiltration, ONCE PRN, for | | | oozing at cardiac cath site, | | | Starting Wed12/26/18 at 1140, For | | | 1 dose, For continued oozing | | | after sheath removal despite | | | pressure dressing and manual | | | pressure. Inject to affected area | | | x 1 followed by 10 minutes of | | | manual compression., | | | Post-op/Phase II | | + +---+ | | | + +---+ | nitroglycerin (NITROSTAT) SL | | | tablet 0.4 mg 0.4 mg, | | | Sublingual, EVERY 5 MIN PRN, | | | Chest pain, Starting Wed12/26/18 | | | at 1140, May give up to 3 doses. | | | Notify physician after 2nd dose | | | given. Hold for SBP<100, | | | Post-op/Phase II | | + +---+ | | | + +---+ | ondansetron (ZOFRAN) injection | | | 4-8 mg 4-8 mg, Intravenous, | | | EVERY 6 HOURS PRN, Nausea, | | | Vomiting, Starting 12/26/18 at | | | 1140, Post-op/Phase II | | + +---+ | | | + +---+ + +---------+ +--------+-------+---+ | sodium chloride 0.9% (NS) | New Bag | 12/27/19 | 1,000 | 125 | | | infusion at 125 mL/hr, | | 19 7:26 | mLs | mL/hr | | | Intravenous, CONTINUOUS, Starting | | AM PDT | | | | | 12/26/18 at 0645, Infuse | | | | | | | starting 4 hours prior to | | | | | | | procedure, and finish liter post | | | | | | | procedure, not to exceed 1 | | | | | | | liter., Pre-op | | | | | | + +---------+ +--------+-------+---+ +---+---+ | | | +---+---+ documented in this encounter
--- OUTSIDE RECORDS SUMMARY | ~2020-01-04 | XMS | Encounter Summary ---
Demographics + + + | Address | [address] | | | [place] [address] | + + + | Home Phone | | + + + | Preferred Language | Unknown | + + + | Marital Status | | + + + | Muslim Affiliation | 1027 | + + + | Race | Unknown | + + + | Ethnic Group | Unknown | + + + Author + + + | Author | [facility] | | | and [place] | + + + | Organization | [facility] | | | and [...] [place], | | | | | [place] [address] | | + + + + + | Ryan Vogt | ECON | Unknown | | + + + + + | Rob Vogt | ECON | Unknown | | + + + + + Care Team Providers + +------+ + | Care Safety Officer Name | Role | Phone | + +------+ + | Abrahan Samaniego MD | PCP | | + +------+ + Encounter Details +--------+ + + + + | Date | Type | Department | Care Team | Description | +--------+ + + + + | 02/03/ | Hospital | [facility] | Abrahan Samaniego MD | Right wrist pain | | 2016 | Encounter | MED CTR [facility] | [address] [facility] | | | | | [address] | [place] | | | | | [place] | [address] | | | | | [address] | | | | | | [phone] | | | +--------+ + + + [...] + +---------+ + + | | Take 5 mLs by mouth | 60 mL | 0 | 12/02/19 | | | diphenoxylate-atropi | 4 times daily as | | | 16 | 6 | | ne (LOMOTIL) | needed (diarrhea). | | | | | | 2.5-0.025 mg/5 mL | | | | | | | liquid | | | | | | + [...] +---------+ + + | predniSONE | Take 2 tablets by | 90 | 3 | 12/03/19 | | | (DELTASONE) 5 mg | mouth Daily. | tablet | | 16 | 6 | | tablet | | [...] [place] | | | | | | [id number] | | | | | | | | +--------+---------+ + + + | 07/25/ | Office | Cardiology | Renetta, | | | 2020 | Visit | | [place] [address] | | | | | | [place] | | | | | | [place] [address] | | | | | | [phone] | | | | | | | | +--------+---------+ + + + | 09/03/ | Office | Endocrinology | Cheryl Zee MD | | | 2020 | Visit | | [address] [place] | | | | | | [address] [place] | | | | | | [phone] | | | | | | | | +--------+---------+ + + + documented as of this encounter Procedures + +--------+ + + + | Procedure Name | Priori | Date/Time | Associated Diagnosis | Comments | | | ty | | | | + +--------+ + + + | XR WRIST RIGHT 2 VW | Routin | 02/04/2016 | Right wrist pain | Results for this | | | e | 4:16 PM | | procedure are in the | | | | PDT | | results section. | + +--------+ + + + documented in this encounter Results XR Wrist Right 2 [...] + + | [facility] | [address] | [place] | [phone] | | [facility] | | [address] | | | - IMAGING | | | | + + + + + documented in this encounter Visit Diagnoses + + | Diagnosis | + + | Right wrist pain Pain in joint, forearm | + + documented in this encounter"
--- OUTSIDE RECORDS SUMMARY | ~2020-01-04 | XMS | Encounter Summary ---
Demographics + + + | Address | [address] | | | [place] [address] | + + + | Home Phone [...] | Author | [facility] | | | and [...] [place], | | | | | [place] [address] | | + + + + + | Ryan Vogt | ECON | Unknown | | + + + + + | Rob Vogt | ECON | Unknown | | + + + + + Care Team Providers + +------+ + | Care Burlapper Name | Role | Phone | + +------+ + | Abrahan Samaniego MD | PCP | | + +------+ + Reason for Visit + + + | Reason | Comments | + + + | New Patient | right hand mallet finger doi 09/07/16 | + + + Evaluate & Treat (Urgent) +--------+--------+ + + + + | Status | Reason | Specialty | Diagnoses / | Referred By | Referred To | | | | | Procedures | Contact | Contact | +--------+--------+ + + + + | Closed | | Orthopedic | Diagnoses | Emergency, | Navi, | | | | Surgery | Acquired | MD Jason | Bernard Hernandez MD | | | | | mallet | | [address] | | | | | finger, | | [place], | | | | | right | | [place] [address] | | | | | | | Phone: | | | | | | | [phone] | | | | | | | Fax: | | | | | | | [phone] | +--------+--------+ + + + + Encounter Details +--------+---------+ + + + | Date | Type | Department | Care Team | Description | +--------+---------+ + + + | 09/09/ | Office | [facility] [place] | Bernard Mcelroy, | Mallet finger of | | 2016 | Visit | ORTHOPEDIC SURGERY | [address] | right finger(s) | | | | [address] [place] | [place] | (Primary Dx) | | | | [place] | [id number] | | | | | [address] | | | | | | [phone] | | | +--------+---------+ + + + [...] Temperature | 36.6 C (97.8 F) | 09/09/2016 10:33 AM | | | | | PDT [...] Weight | 66.2 kg (146 lb) | 09/09/2016 10:33 AM | | | | | PDT | | + + + + + | Height | 161.3 cm (5' 3.5") | 09/09/2016 10:33 AM | | | | | PDT | | + + + + + | Body Mass Index | 25.46 | 09/09/2016 10:33 AM | | | | | PDT | | + + + + + documented in this encounter Progress Notes Bernard Mcelroy MD - 09/09/2016 11:09 AM PDTFormatting of this note might be different fro m the original. History of present illness: Oliva is a 66 y.o. 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 levothyroxine (SYNTHROID, LEVOTHROID) 100 mcg tablet Take 1 tablet by mouth every morni ng (before breakfast). 90 tablet 3 predniSONE (DELTASONE) 5 mg tablet Take 1 tablet by mouth Daily. 90 tablet 3 No current facility-administered medications on file prior to visit. Family History Problem Relation Age of Onset High blood pressure Mother 84 of Aortic dissection Other (see comment) Father 74 of hemorrgagic CVA Lung cancer Maternal Grandfather Lung cancer Brother Lung cancer Sister Social History Social History Marital Status: Spouse Name: N/A Number of Children: N/A Years of Education: N/A Occupational History Not on file. Social History Main Topics Smoking status: Never Smoker Smokeless tobacco: Never Used Alcohol Use: No Drug Use: No Sexual Activity: Not on file Other Topics Concern Not on file Social History Narrative 43rd wedding anniversary was 03/20/2011 which is a big deal because her has been s o ill. Review of Systems Eyes: [] Double vision [] Glasses/contacts [] Failing vision Ear/Nose/Throat: [] Frequent Colds [] Sinus Disease [] Nose obstruction [] Sneezing Spells [] Change in taste [] Artificial teeth [x] Ears ringing [] Ear pain [] Hearing los s [] Teeth problems [] Hoarseness [] Neck swelling [x] Sore throat [x] Congestion [] Nosebleeds [] Nasal allergies Respiratory: [] Asthma/Wheezing [] Pneumonia [] Night sweats [] Shortness of breath [] Chronic cough [] Coughing up blood [] Exposure to tuberculosis Cardiovascular: [] Heart Problems [] Hypertension [] Heart murmur [] Palpitations [] Rheumatic fever [] Phlebitis [] Chest pain [] Ankle swelling [] Leg cramps [] Racin g heart [] Skipping beats [] Blood clots Gastrointestinal: [] Abdominal pain [] Heartburn [] Blood from rectum [] Colitis [] Gallbladder problems [] Troubl e swallowing [x] Bloated stomach [] Change in stools [] Vomiting blood [] Nausea [] Hemorrhoids [] Jaundice [ ] Hepatitis [] Diarrhea [] Constipation [] Diverticulitis Urinary Tract: [] Painful urination [] Kidney Stones [] Any urine leakage [] Weak urine stream [] Night urination [] Urine infections [] Bedwetting [] Blood in urine Skin: [] Skin rashes [] Itching/Burning [x] Skin bruises easi ly [] Artificial tanning [] Skin cancer [] Hair loss [] Changes in moles Musculoskeletal: [] Physical handicaps [] Back or shoulder pain []Rheumatoid disease [] Osteoarthritis [] Joint pain [] Joint swelling []Gout [] Leg cramps at night Neurological: [x] Headaches [] Seizures [] Stroke/TIA [] Faintness [] Tremors [] Numbness [] Dizziness [] Changes in handwriting [] Memory loss [] Shooting pains Psychiatric: [] Depression [] Suicidal thoughts [] Sleep pattern changes [] Appetite changes [] Recent counseling [] Nervousness/anxiety [] Physical violence [] Marital problems Endocrine: [] Thyroid [] Diabetes Systemic: []Weight loss/gain (over 10 lbs) []Fever/chills [x]Fatigue [] Sleeping Difficulties [] Speech change [] Voice change Filed Vitals: 09/09/16 1033 Temp: 36.6 C (97.8 F) Estimated body mass index is 25.45 kg/(m^2) as calculated from the following: Height as of this encounter: 1.613 m (5' 3.5"). Weight as of this encounter: 66.225 kg (146 lb). On physical exam she has a splint on the right ring finger No skin punctures or lacerations She is tender distally but no proximal tenderness Is able to move the mcp freely The rest of the hand is nontender c arm images taken today with the splint intact and she has no fractures and the splint is holding the dip in slight hyperextension Assessment: right ring mallet finger injury - non bony The natural history and treatment options discussed My rec is continuous splinting for the next 6 weeks followed by night time splinting for 3 more weeks The goal of avoiding excessive lag and the development of swan neck deformity discussed All questions answered Will return in 6 weeks documented in this en counter Plan of Treatment +--------+---------+ + + + | Date | Type | Specialty | Care Team | Description | +--------+---------+ + + + | 04/29/ | Office | Internal Medicine | Abrahan Samaniego MD | | | 2019 | Visit | | [address] | | | | | | [place] | | | | | | [address] | | | | | | | | +--------+---------+ + + + | 07/25/ | Office | Cardiology | Renetta, | | | 2020 | Visit | | [facility] [address] | | | | | | [place] | | | | | | [place] [address] | | | | | | [phone] | | | | | | | | +--------+---------+ + + + | 09/03/ | Office | Endocrinology | Cheryl Zee MD | | | 2020 | Visit | | [address] | | | | | | [address] [place] | | | | | | [id number] | | | | | | | | +--------+---------+ + + + documented as of this encounter Visit Diagnoses + + | Diagnosis | + + | Mallet finger of right finger(s) - Primary | + + documented in this encounter
--- OUTSIDE RECORDS SUMMARY | ~2020-01-04 | XMS | Encounter Summary ---
Demographics + + + | Address | [address] | | | [place] [address] | + + + | Home Phone | | + + + | Preferred Language | Unknown | + + + | Marital Status | | + + + | Advent Affiliation | 1027 | + + + | Race | Unknown | + + + | Ethnic Group | Unknown | + + + Author + + + | Author | [facility] | | | and [place] | + + + | Organization | [facility] | | | and [...] [place], | | | | | [place] [address] | | + + + + + | Ryan Vogt | ECON | Unknown | | + + + + + | Rob Vogt | ECON | Unknown | | + + + + + Care Team Providers + +------+ + | Care Category Consultant Name | Role | Phone | + +------+ + | Abrahan Samaniego MD | PCP | | + +------+ + Reason for Visit + +--------+ + | Reason | Onset | Comments | | | Date | | + +--------+ + | Symptom Management | 09/15/ | | | | 2020 | | + +--------+ + Encounter Details +--------+ + + + + | Date | Type | Department | Care Team | Description | +--------+ + + + + | 09/15/ | Telephone | [facility] | Katie Barrett, | Symptom Management | | 2019 | | [facility] | [employer] [address] | | | | | [address] | [place] | | | | | [place] | [address] | | | | | [address] | [phone] | | | | | | | [...] this encounter Miscellaneous Notes Telephone Encounter - Andre Bush, PT - 09/20/2019 8:41 AM PDT(for 1st contact and 2nd contact calls.) While waiting for your COVID-19 test results, you must wear a mask if you ne ed to leave your home. This includes returning to a healthcare facility. Please arrive weari ng your mask given to you during your initial evaluation. Do not throw your mask away. Patient reached? Yes, (negative) Called and gave the test results that COVID 19 is negative. Patient to cont inue social distancing, but no longer needs to be on home quarantine . May return to work if fever is gone and no meds were needed to reduce it within the last 24 hours. COVID testing done? Yes COVID results: Negative Describe your symptoms? None. Symptoms have disappeared. Are your symptoms getting better, worse, or the same? Symptoms: are improving Lemon in ice water or honey and lemon in tea Popsicles to help reduce core temp and/or sooth throat Use cough drops as needed Diligent hand washing. Soap and water is best for minium of 30 seconds. If using hand sanit izer, must scrub full 20-30 seconds to kill Coronavirus. Rest Fluids, sports drinks, Pedialyte Monitor temperature. If fever of 100.4 alternate use of Tylenol and Ibuprofen every 4 hours . If fever does not come down try a cool shower, light clothing, cool cloth to armpits and b ack of neck, and use of fan. If fever is not resolved within 24 hours or spikes to 103.0 ple ase call your doctors office or Urgent care on weekends. Stay at home so as not to spread germs to the public. If get diarrhea it is best to sanitize toilet with bleach after use. elephone Encounter - Bassem Isaura, RN - 09/19/2019 2:06 PM PDT(for 1st contact and 2nd contact calls.) While w aiting for your COVID-19 test results, you must wear a mask if you need to leave your home. This includes returning to a healthcare facility. Please arrive wearing your mask given to y ou during your initial evaluation. Do not throw your mask away. Patient reached? No, left voicemail stating of reminder to continue using social distancing and home quarent ine until we call back with results. Test is considered positive, until we have results. Con tinue to wash your hands as previously instructed. Call with any questions or concerns. Our next call in this series will be once we get results. COVID testing done? Yes COVID results: Pending Respiratory Panel results: Not tested [facility] [phone] [place] If an [place] resident, [facility] [phone] Describe your symptoms? Unable to assess Are your symptoms getting better, worse, or the same? Symptoms: Unable to assess Have you traveled to or been in contact with with someone who has traveled to [place], [place], [place], [place], or [place] within the last month? Unable to assess Do you have any other concerns? Unable to assess Recommendations: Lemon in ice water or honey and lemon in tea Popsicles to help reduce core temp and/or sooth throat Use cough drops as needed Diligent hand washing. Soap and water is best for minium of 30 seconds. If using hand sanit izer, must scrub full 20-30 seconds to kill Coronavirus. Rest Fluids, sports drinks, Pedialyte Monitor temperature. If fever of 100.4 alternate use of Tylenol and Ibuprofen every 4 hours . If fever does not come down try a cool shower, light clothing, cool cloth to armpits and b ack of neck, and use of fan. If fever is not resolved within 24 hours or spikes to 103.0 ple ase call your doctors office or Urgent care on weekends. Stay at home so as not to spread germs to the public. If get diarrhea it is best to sanitize toilet with bleach after use. elephone Encounter - Katie Barrett PTA - 09/16/2019 3:04 PM PDT(for 1st contact and 2nd contact calls.) Whil e waiting for your COVID-19 test results, you must wear a mask if you need to leave your gato e. This includes returning to a healthcare facility. Please arrive wearing your mask given t o you during your initial evaluation. Do not throw your mask away. Patient reached? Yes. (pending) Advised to continue home quarantine and social isolating until we get the re sults back of the COVID testing. Encouraged diligent hand washing, rest, and plenty of fluid s. COVID testing done? Yes COVID results: Pending Describe your symptoms? None. Symptoms have disappeared. Do you have any other concerns? NO Recommendations: Lemon in ice water or honey and lemon in tea Popsicles to help reduce core temp and/or sooth throat Use cough drops as needed Diligent hand washing. Soap and water is best for minium of 30 seconds. If using hand sanit izer, must scrub full 20-30 seconds to kill Coronavirus. Rest Fluids, sports drinks, Pedialyte Monitor temperature. If fever of 100.4 alternate use of Tylenol and Ibuprofen every 4 hours . If fever does not come down try a cool shower, light clothing, cool cloth to armpits and b ack of neck, and use of fan. If fever is not resolved within 24 hours or spikes to 103.0 ple ase call your doctors office or Urgent care on weekends. Stay at home so as not to spread germs to the public. If get diarrhea it is best to sanitize toilet with bleach after use. documented in this encounter Plan of Treatment +--------+---------+ + + + | Date | Type | Specialty | Care Team | Description | +--------+---------+ + + + | 04/29/ | Office | Internal Medicine | Abrahan Samaniego MD | | | 2019 | Visit | | [facility] | | | | | | [place] | | | | | | [address] | | | | | | | | +--------+---------+ + + + | 07/25/ | Office | Cardiology | Renetta, | | | 2020 | Visit | | [facility] [address] | | | | | | [place] | | | | | | [place] [address] | | | | | | [phone] | | | | | | | | +--------+---------+ + + + | 09/03/ | Office | Endocrinology | Cheryl Zee MD | | | 2020 | Visit | | [address] | | | | | | [address] [place] | | | | | | [phone] | | | | | | | [...]
--- OUTSIDE RECORDS SUMMARY | ~2020-01-04 | XMS | Encounter Summary ---
Demographics + + + | Address | [address] | | | [place] [address] | + + + | Home Phone [...] + | Author | [facility] | | | and [...] [place], | | | | | [place] [address] | | + + + + + | Ryan Vogt | ECON | Unknown | | + + + + + | Rob Vogt | ECON | Unknown | | + + + + + Care Team Providers + +------+ + | Care Soda Drier Feeder Name | Role | Phone | + +------+ + | Abrahan Samaniego MD | PCP | | + +------+ + Reason for Visit + + + | Reason | Comments | + + + | Medical Problem | | | (Minor) | | + + + Encounter Details +--------+ + + + + | Date | Type | Department | Care Team | Description | +--------+ + + + + | 01/09/ | Emergency | [facility] | Tru Campbell | Adverse effect of | | 2019 - | | MED CTR EMERGENCY | MD Ricco [address] | drug, initial | | | | CLIO [address] | [facility] | encounter (Primary | | 01/10/ | | [place] | [place] [address] | Dx) | | 2019 | | [address] | [phone] | | | | | [phone] | | | +--------+ + + + [...] + + + | Blood Pressure | 140/66 | 01/10/2019 12:30 AM | | | | | PDT | | + + + + + | Pulse | 68 | 01/10/2019 12:30 AM | | | | | PDT | | + + + + + | Temperature | 36.4 C (97.6 F) | 01/09/2019 11:12 PM | | | | | PDT | | + + + + + | Respiratory Rate | 18 | 01/09/2019 11:12 PM | | | | | PDT | | + + + + + | Oxygen Saturation | 97% | 01/10/2019 12:30 AM | | | | | PDT | | + + + + + | Inhaled Oxygen | - | - | | | Concentration | | | | + + + + + | Weight | 68 kg (150 lb) | 01/09/2019 11:12 PM | | | | | PDT | | + + + + + | Height | 162.6 cm (5' 4") | 01/09/2019 11:12 PM | | | | | PDT | | + + + + + | Body Mass Index | 25.75 | 01/09/2019 11:12 PM | | | | | PDT | | + + + + + documented in this encounter Discharge Instructions AttachmentsThe following attachments cannot be sent through Care Everywhere.Drug Reaction, Other (Georgian)documented in this encounter Medications at Time of [...] documented as of this encounter ED Notes Tru Campbell MD - 01/10/2019 3:23 AM PDTFormatting of this note might be diff erent from the original. [facility] Oliva Vogt Emergency Department Encounter Note [address] [place] [id number] PCP:Abrahan Samaniego MD [phone] CHIEF COMPLAINT: Chief Complaint Patient presents with Medical Problem (Minor) ED Room: ED12 HPI Oliva Vogt is a 68 y.o. female who presents to the Emergency Department Patient presents complaining of medication reaction currently asymptomatic referred in for evaluation stating that her eyes were crossed yesterday this resolved no associated pain or trauma. Language line modeling director made available and used to collect historical details as needed. PAST MEDICAL & SURGICAL HISTORY Patient Active Problem List Diagnosis Date Noted Preventative health care 05/13/2012 Priority: High Note Last Updated: 03/07/2018 [facility]:12/03/2006 Normal colonoscopy 03/20:Impression: - Tortuous colon. - Redundant colon. - The examination was otherwise normal. - The distal rectum and anal verge are normal on retroflexion view. Mammo:02/21/14,10/28/15, 01/22 Pap: 02/[address] Pritchard DEXA:09/24/14 Results- Spine -2.5, Femur -2.5. 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 Impaired mobility 07/16/2014 Secondary adrenal insufficiency (HCC) 05/16/2012 HIP PAIN Secondary hypothyroidism Hyperlipidemia Hypopituitarism (HCC) Note Last Updated: 10/05/2018 Due to Guero kemp Chronic kidney disease (CKD) Note Last Updated: 03/09/2015 ICD-10 Record update DUPUYTREN'S CONTRACTURE 12/15/2011 OSTEOARTHRITIS, KNEE 12/15/2011 OTHER DISEASES OF NASAL CAVITY AND SINUSES 09/23/2011 Frontal skull lesion 09/10/2011 OTHER AND UNSPECIFIED HYPERLIPIDEMIA 11/24/2010 Past Surgical History: Procedure Laterality Date CARDIAC CATHERIZATION Left 12/26/2018 Procedure: CV LHC; Surgeon: Benigno Deras MD; Location: [facility] CV LAB CHOLECYSTECTOMY COLONOSCOPY 03/12/2014 COLONOSCOPY; Laterality: N/A; Surgeon: Shaji Thornton MD; Location: [facility] MEDICAL PROCEDU RE UNIT CYST REMOVAL Left 1969 ENDOMETRIAL BIOPSY 2006 Benign Skull Biopsy 09/28/2011 (Benign) TUBAL LIGATION Bilateral CURRENT MEDICATIONS IVF EMBRYOLOGIST Home Medications Medication Sig amLODIPine (NORVASC) 5 mg tablet take 1 tablet by mouth once daily atorvaSTATin (LIPITOR) 20 mg tablet take 1 tablet by mouth once daily cholecalciferol (CHOLECALCIFEROL) 1000 units TABS Take 1 tablet by mouth Daily. ergocalciferol (VITAMIN D-2) 50,000 units capsule Take 50,000 Units by mouth Once a wee k. levothyroxine (SYNTHROID) 100 mcg tablet Take 1 tablet by mouth every morning (before b reakfast). Multiple Vitamins-Minerals (WOMENS MULTIVITAMIN PLUS) TABS Take by mouth Daily. nitroglycerin (NITROSTAT) 0.[address] 1 tablet under the tongue every 5 marla hay as needed for Chest pain. potassium chloride (KLOR-CON) 10 mEq CR tablet take 1 tablet by mouth once daily predniSONE (DELTASONE) 1 mg tablet One daily for total 6 mg daily (Patient taking diffe rently: Take 5 mg by mouth Daily. One daily for total 6 mg daily) predniSONE (DELTASONE) 5 mg tablet take 1 tablet by mouth daily MOST DAYS INCREASE TO 3 tablets daily for 3 days WHEN SICK Somatropin (OMNITROPE) 5.8 MG SOLR Inject 0.2 mg under the skin Daily. ALLERGIES Allergies [...] is bilateral BKA. She works at the [employer]. She doesn't exerc ise because she is so busy with her grands and her son has also been ill and was having to l tameka with her until just recently. They have a mobile home park which they are selling. 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 REVIEW OF SYSTEMS As in history of present illness. A 10 system review was otherwise negative. PHYSICAL EXAM VITAL SIGNS: (first vital signs):Temp: 36.4 C (97.6 F) Pulse: 75 Resp: 18 SpO2: 98 % BP : 141/73 Body mass index is 25.75 kg/m. Constitutional: Well-appearing female patient. HEENT: Atraumatic, PERRL, Oropharynx benign. Neck: Supple with full range of motion. No JVD, no lymphadenopathy, no meningismus and no cervical spine tenderness to palpation or step-off noted. Chest: Good air movement bilaterally. No wheezes, No, rales. Cardiovascular: Normal S1 S2 Abdomen: Soft, nontender., no rebound, guarding, or masses., bowel tones normal. and no pu lsatile masses. Back: Within normal limits, no CVA tenderness and no midline thoracic or lumbar spinal tend erness Extremities: Nontender. No lower extremity edema, no calf asymmetry. Present distal pulse s. Skin: Warm, Dry, No rashes Neurologic: Alert & oriented. No focal deficits, Speech normal, gait not tested Psychiatric: Normal mood, affect and judgement. Negative neurologic exam. EKG 12-lead EKG shows LABS Results for orders placed or performed during the hospital encounter of 12/26/18 Basic Metabolic Panel Result Value Ref Range Na 144 136 - 145 mmol/L K 3.6 3.4 - 5.1 mmol/L Cl 109 (H) 98 - 107 mmol/L CO2 26 20 - 31 mmol/L Anion Gap 9 3 - 16 mmol/L Glucose 94 60 - 106 mg/dL BUN 15 9 - 23 mg/dL Creatinine 0.89 0.55 - 1.02 mg/dL eGFR if not >60 >=60 mL/min/1.73m2 Ca 9.6 8.7 - 10.4 mg/dL BUN/Creatinine Ratio 16.9 CV Cardiac Procedure Result Value Ref Range LVEF-LVGRAM CARDIAC CATH 65 % IMAGING STUDIES (X-Rays interpreted by ED Physician) ED COURSE & MEDICAL DECISION MAKING Pertinent Labs & Imaging studies were reviewed along with EMS notes and prison record s if applicable. (See chart for details) Medications and Allergy list reviewed. Nurses note and old records were reviewed The patient was seen and examined, The patient was placed on the monitor and monitored. No clinical evidence of CVA or other acute pathology at this time. Will discontinue medica tion in question and she will follow-up with both her rotary peel oven tender and primary care doctor f or further management. The patient remained hemodynamically stable without evidence of shock or malperfusion vilma higgins their ED course, at time of discharge patient is sitting/resting comfortably in no apparen t distress. The patient was counseled about their results and workup including all incidenta l findings and the need for out patient follow up to which they verbalized their understandi ng and were provided. The patient was counseled about the importance of medical recommendati ons today and the dangers including harm, , permanent injury, injury, morbidity, and mo rtality of non adherence to the treatment plan. They verbalize their understanding of today' s plan and agree with it. They were counseled that emergency services are available to them 24/ and to return to the ED immediately if symptoms return, persist, change, worsen or new symptoms develop. The patient was given follow up. They were given further strict, thorough, actionable return precautions to which they verbalized their understanding. The patient's q uestions were answered and the patient agreed with the plan. The patient was discharged in g ood stable condition. Last Set of Vital Signs: Temp: 36.4 C (97.6 F) Pulse: 68 Resp: 18 SpO2: 97 % BP: 140/66 FINAL IMPRESSION ICD-10-CM ICD-9-CM 1. Adverse effect of drug, initial encounter T50.905A E947.9 Follow-up Information Abrahan Samaniego MD. Call today. Specialty: Internal Medicine Contact information: [address] [place] [address] [place] [id number] Discharge Medication List as of 01/10/2019 0:37 Portions of this chart were created with [employer]360 voice recognition software. Inadvertent so und alike substitutions may be present and are unintentional Tru Campbell MD 01/10/19 0341 Silviano Dumont RN - 01/09/2019 11:08 PM PDTPt presents to ER with CO medication reaction. PT david guido has been taking Omnitrope for about three months now and started Norcasc two months ago and over the last few weeks has been having vision changes and auras with CO pain behind rig ht eye. document ed in this encounter Plan of Treatment +--------+---------+ + + + | Date | Type | Specialty | Care Team | Description | +--------+---------+ + + + | 04/29/ | Office | Internal Medicine | Abrahan Samaniego MD | | | 2019 | Visit | | [address] [place] [address] | | | | | | [place] | | | | | | [address] | | | | | | | | +--------+---------+ + + + | 07/25/ | Office | Cardiology | Renetta, | | | 2020 | Visit | | [address] | | | | | | [place], | | | | | | [place] [address] | | | | | | [phone] | | | | | | | | +--------+---------+ + + + | 09/03/ | Office | Endocrinology | Cheryl Zee MD | | | 2020 | Visit | | [address] [place] | | | | | | [address] [place] | | | | | | [phone] | | | | | | | | +--------+---------+ + + + documented as of this encounter Visit Diagnoses + + | Diagnosis | + + | Adverse effect of drug, initial encounter - Primary | + + documented in this encounter
--- OUTSIDE RECORDS SUMMARY | ~2020-01-04 | XMS | Encounter Summary ---
Demographics + + + | Address | [address] | | | [place] [address] | + + + | Home Phone | | + + + | Preferred Language | Unknown | + + + | Marital Status | | + + + | Evangelical Affiliation | 1027 | + + + | Race | Unknown | + + + | Ethnic Group | Unknown | + + + Author + + + | Author | [facility] | | | and [place] | + + + | Organization | [facility] | | [...] [place], | | | | | [place] [address] | | + + + + + | Ryan Vogt | ECON | Unknown | | + + + + + | Rob Vogt | ECON | Unknown | | + + + + + Care Team Providers + +------+ + | Care Billet Header Name | Role | Phone | + +------+ + | Abrahan Samaniego MD | PCP | | + +------+ + Encounter Details +--------+ + + + + | Date | Type | Department | Care Team | Description | +--------+ + + + + | 08/21/ | Orders Only | [facility] | Cheryl Zee MD | High alkaline | | 2020 | | [facility] [place] | [address] [place] | phosphatase level | | | | ENDOCRINOLOGY [address] | [address] [place] | (Primary Dx) | | | | [address] | [address] | | | | | [place] | | | | | | [address] | | | | | | [phone] | | | +--------+ + + + [...] [place] | | | | | | [address] | | | | | | | | +--------+---------+ + + + | 07/25/ | Office | Cardiology | Renetta, | | | 2020 | Visit | | [address] | | | | | | [place] | | | | | | [place] [address] | | | | | | [phone] | | | | | | | | +--------+---------+ + + + | 09/03/ | Office | Endocrinology | Cheryl Zee MD | | | 2020 | Visit | | [address] [place] | | | | | | [address] [place] | | | | | | [phone] | | | | | | | | +--------+---------+ + + + documented as of this encounter Visit Diagnoses + + | Diagnosis | + + | High alkaline phosphatase level - Primary | + + documented in this encounter"
--- OUTSIDE RECORDS SUMMARY | ~2020-01-04 | XMS | Encounter Summary ---
Demographics + + + | Address | [address] | | | [place] [address] | + + + | Home Phone [...] + + | Author | [facility] [...] [place], | | | | | [place] [address] | | + + + + + | Ryan Vogt | ECON | Unknown | | + + + + + | Rob Vogt | ECON | Unknown | | + + + + + Care Team Providers + +------+ + | Care Manager Electronic Name | Role | Phone | + +------+ + | Abrahan Samaniego MD | PCP | | + +------+ + Reason for Visit +--------+--------+ + | Reason | Onset | Comments | | | Date | | +--------+--------+ + | Other | 06/02/ | | | | 2016 | | +--------+--------+ + Encounter Details +--------+ + + + + | Date | Type | Department | Care Team | Description | +--------+ + + + + | 06/02/ | Telephone | [facility] [place] [facility] | Abrahan Samaniego MD | Other | | 2016 | | MEDICINE [address] [place] [address] | [address] [facility] | | | | | [place], | [place] | | | | | [place] [address] | [address] | | | | | [phone] | | | +--------+ + + + [...] Telephone Encounter - Christina Wilson LPN - 06/02/2017 9:54 AM PSTLeft message on patient s cell phone to check her luciernahart account for message from Dr. Samaniego elephone Encounter - Abrahan Samaniego MD - 06/02/2017 8:02 AM PSTSent her a My Chart message regarding questions she had about alcohol treatment for a family member which is causing her a lot of stress. She hasn't read it yet. Please call and let her know the info elephone Encounter - Abrahan Samaniego MD - 06/02/2017 8:02 AM PST----- Radhaa ge from Oliva Vogt sent at 06/02/2017 5:30 PST ----- Regarding: Alcohol treatment Here is the local group that is an alternative to AA. As an alternative to 12-step programs, a recovery support group is now meeting in [facility] from 7:00-8:00 p.m. every Wednesday in the [facility] (3rd floor) of the [facility] at [address] [place] [address]. The group is sponsored by [employer], which is committed to abstinence, the development of individual recovery plans, and secular peer support. For general information about [employer], see: [email or web address]/. If you wish to learn m ore about [employer], please contact the organizer at: [employer] . Abrahan Samaniego MD documented in this enc ounter Plan of [...] | | | | | | [place] [address] | | | | | | [phone] | | | | | | | [...]
--- OUTSIDE RECORDS SUMMARY | ~2020-01-04 | XMS | Encounter Summary ---
Demographics + + + | Address | [address] | | | [place] [address] | + + + | Home Phone [...] + | Author | [facility] [...] [place], | | | | | [place] [address] | | + + + + + | Ryan Vogt | ECON | Unknown | | + + + + + | Rob Vogt | ECON | Unknown | | + + + + + Care Team Providers + +------+ + | Care Project Director Name | Role | Phone | + +------+ + | Abrahan Samaniego MD | PCP | | + +------+ + Reason for Visit + + + | Reason | Comments | + + + | Follow-up | c/o tingling at incision site on scal | + + + Encounter Details +--------+---------+ + + + | Date | Type | Department | Care Team | Description | +--------+---------+ + + + | 02/28/ | Office | [facility] | Abrahan Samaniego MD | Chest pain; Scalp | | 2011 | Visit | MEDICINE [address] | [address] [place] [address] STREET | pain; Immunization | | | | [place], | [place] | deficiency | | | | [place] [address] | [address] | | | | | [phone] | | | +--------+---------+ + + + [...] + + + | Blood Pressure | 118/73 | 02/29/2012 4:17 PM | | | | | PDT | | + + + + + | Pulse | 70 | 02/29/2012 4:17 PM | | | | | PDT | | + + + + + | Temperature | - | - | | + + + + + | Respiratory Rate | 16 | 02/29/2012 4:17 PM | | | | | PDT | | + + + + + | Oxygen Saturation | - | - | | + + + + + | Inhaled Oxygen | - | - | | | Concentration | | | | + + + + + | Weight | 68.5 kg (151 lb) | 02/29/2012 4:17 PM | | | | | PDT | | + + + + + | Height | 160 cm (5' 3") | 02/29/2012 4:17 PM | | | | | PDT | | + + + + + | Body Mass Index | 26.75 | 02/29/2012 4:17 PM | | | | | PDT | | + + + + + documented in this encounter Progress Notes Abrahan Samaniego MD - 02/29/2012 4:31 PM PDTFormatting of this note might be different fro m the original. Subjective: Patient ID: Oliva Vogt is a 62 y.o. female. HPI Patient's medications, allergies, past medical, surgical, social and family histories were reviewed and updated as appropriate. Oliva is /co a "divot in her skull where she had the surgery previously. She can also have some burning in the area and she feels like she needs to scratch it. She also had some chest discomfort recently. [facility] discomfort/burning which didn't go to the arm/jaw/shoulder/back. No N/V with it. It was in 01/16 and it was also quite warm out. She has not had this happen before or after. She is walking at 2.8 mph on the treadmill fo r 15 min /day without any problems. Also rides bike with her grandson from home to the [facility] and back without trouble. Also rode bike recently to [facility] and back without any probl em. Review of Systems Constitutional: Negative for diaphoresis, activity change, appetite change and unexpected w eight change. Respiratory: Positive for chest tightness and shortness of breath. Negative for apnea, coug h, choking, wheezing and stridor. Cardiovascular: Positive for chest pain. Negative for palpitations and leg swelling. Gastrointestinal: Negative for nausea, vomiting, abdominal pain and abdominal distention. Objective: Physical Exam Constitutional: She appears well-developed and well-nourished. HENT: Healed surgical scar with some slight depression of the skull where the surgery was. I t is normal. Cardiovascular: Normal rate, regular rhythm and normal heart sounds. Exam reveals no nixon p and no friction rub. No murmur heard. Pulmonary/Chest: Effort normal and breath sounds normal. No respiratory distress. She has n o wheezes. She has no rales. She exhibits no tenderness. Abdominal: Soft. Bowel sounds are normal. Assessment: DYSESTHESIA OF SCALP:Normal post-op course explained CHEST PAIN: if it comes back, stop what you're doing and call or 911 Gradually [facility] your [facility] and on [facility]. Stop immediately if you ge t chest pain or too short of breath. Start baby asa daily documented in this en counter Plan of Treatment +--------+---------+ + + + | Date | Type | Specialty | Care Team | Description | +--------+---------+ + + + | 04/29/ | Office | Internal Medicine | Abrahan Samaniego MD | | | 2019 | Visit | | [address] [place] [address] | | | | | | [place] | | | | | | [address] | | | | | | | | +--------+---------+ + + + | 07/25/ | Office | Cardiology | Renetta, | | | 2020 | Visit | | [address] | | | | | | [place], | | | | | | [place] [address] | | | | | | [phone] | | | | | | | | +--------+---------+ + + + | 09/03/ | Office | Endocrinology | Cheryl Zee MD | | | 2020 | Visit | | [address] | | | | | | [address] [place] | | | | | | [phone] | | | | | | | | +--------+---------+ + + + documented as of this encounter Visit Diagnoses + + | Diagnosis | + + | Chest pain Chest pain, unspecified | + + | Scalp pain Headache | + + | Immunization deficiency Personal history of underimmunization status | + + documented in this encounter
--- OUTSIDE RECORDS SUMMARY | ~2020-01-04 | XMS | Encounter Summary ---
Demographics + + + | Address | [address] | | | [place] [address] | + + + | Home Phone | | + + + | Preferred Language | Unknown | + + + | Marital Status | | + + + | Zoroastrianism Affiliation | 1027 | + + + | Race | Unknown | + + + | Ethnic Group | Unknown | + + + Author + + + | Author | [facility] | | | and [place] | + + + | Organization | and [facility] | | | and [...] [place], | | | | | [place] [address] | | + + + + + | Ryan Vogt | ECON | Unknown | | + + + + + | Rob Vogt | ECON | Unknown | | + + + + + Care Team Providers + +------+ + | Care Blocker Metal Base Name | Role | Phone | + +------+ + | Abrahan Samaniego MD | PCP | | + +------+ + Reason for Visit + + + | Reason | Comments | + + + | Immunizations | | + + + Encounter Details +--------+ + + + + | Date | Type | Department | Care Team | Description | +--------+ + + + + | 02/10/ | Clinical | [facility] | Yung Song MD | Need for TD vaccine | | 2017 | Support | MEDICINE [address] [place] [address] | [address] [facility] | (Primary Dx) | | | | [place], | [place] | | | | | [place] [address] | [id number] | | | | | [phone] | | | +--------+ + + + [...] as of this encounter Progress Caty Goldman, Wire Charger - 02/10/2017 4:30 PM PDTGiven in L Deltoid- patient steff ated injection well. document ed in this encounter Plan of Treatment +--------+---------+ + + + | Date | Type | Specialty | Care Team | Description | +--------+---------+ + + + | 04/29/ | Office | Internal Medicine | Abrahan Samaniego MD | | | 2019 | Visit | | [address] [place] [address] | | | | | | [place] | | | | | | [address] | | | | | | | | +--------+---------+ + + + | 07/25/ | Office | Cardiology | Renetta, | | | 2020 | Visit | | [address] | | | | | | [place] | | | | | | [place] [address] | | | | | | [phone] | | | | | | | [...] Diagnosis | + + | Need for Td vaccine - Primary Need for prophylactic vaccination with | | tetanus-diphtheria (Td) | + + documented in this encounter"
--- OUTSIDE RECORDS SUMMARY | ~2020-01-04 | XMS | Encounter Summary ---
Demographics + + + | Address | [address] | | | [place] [address] | + + + | Home Phone [...] Author | [facility] | | | and [place] [...] [place], | | | | | [place] [address] | | + + + + + | Ryan Vogt | ECON | Unknown | | + + + + + | Rob Vogt | ECON | Unknown | | + + + + + Care Team Providers + +------+ + | Care First Aid Instructor Name | Role | Phone | + +------+ + | Abrahan Samaniego MD | PCP | | + +------+ + Reason for Visit +--------+--------+ + | Reason | Onset | Comments | | | Date | | +--------+--------+ + | Other | 07/28/ | | | | 2019 | | +--------+--------+ + Encounter Details +--------+ + + + + | Date | Type | Department | Care Team | Description | +--------+ + + + + | 07/28/ | Telephone | [facility] | Abrahan Samaniego MD | Other | | 2019 | | MEDICINE [address] [place] [address] | [facility] | | | | | [place], | [place] | | | | | [place] [address] | [address] | | | | | [phone] | | | +--------+ + + + [...] this encounter Miscellaneous Notes Telephone Encounter - Wendi Thomas RN - 07/28/2019 8:47 AM PSTMyChart message with fo llow-up recommendations per Dr. Samaniego. Updated referral sent to ortho. Electronically sign ed by Wendi Thomas RN at 07/28/2019 8:48 AM PSTTelephone Encounter - Abrahan Samaniego MD - 07/28/2019 8:13 AM PSTSee My Chart msg She needs to see Ortho back for her ongoing knee pain since they did surgery on it on 06/02. She should address her alk phos question to Dr Zee who is her endo. documented in this encounter Plan of Treatment +--------+---------+ + + + | Date | Type | Specialty | Care Team | Description | +--------+---------+ + + + | 04/29/ | Office | Internal Medicine | Abrahan Samaniego MD | | 2019 | Visit | | [address] [place] [address] | | | | | | [place] | | | | | | [id number] | | | | | | | | +--------+---------+ + + + | 07/25/ | Office | Cardiology | Renetta, | | | 2020 | Visit | | PARKER [address] | | | | | | [place], | | | | | | [place] [address] | | | | | | [phone] | | | | | | | | +--------+---------+ + + + | 09/03/ | Office | Endocrinology | Cheryl Zee MD | | | 2020 | Visit | | [address] | | | | | | [address] [place] | | | | | | [address] | | | | | | | | +--------+---------+ + + + documented as of this encounter Visit Diagnoses Not on filedocumented in this encounter"
--- OUTSIDE RECORDS SUMMARY | ~2020-01-04 | XMS | Encounter Summary ---
Demographics + + + | Address | [address] | | | [place] [address] | + + + | Home Phone | | + + + | Preferred Language | Unknown | + + + | Marital Status | | + + + | Spiritism Affiliation | [id number] | + + + | Race | Unknown | + + + | Ethnic Group | Unknown | + + + Author + + + | Author | [facility] | | | and [place] | + + + | Organization | [facility] | | [...] [place], | | | | | [place] [address] | | + + + + + | Ryan Vogt | ECON | Unknown | | + + + + + | Rob Vogt | ECON | Unknown | | + + + + + Care Team Providers + +------+ + | Care Laborer Wrecking And Salvaging Name | Role | Phone | + +------+ + | Abrahan Samaniego MD | PCP | | + +------+ + Reason for Visit + + + | Reason | Comments | + + + | Knee Pain | right knee pain ONSET 6 mo | + + + | New Patient | establish care with Dr. Watkins | + + + Evaluate & Treat [...] | | chronicity, | STREET | [place] | | | | | unspecified | [place], | [place] | | | | | laterality | [place] [address] | [address] Phone: | | | | | | Phone: | [phone] | | | | | | [phone] | Fax: | | | | | | Fax: | [phone] | | | | | | [phone] | | +--------+ + + + + + Encounter Details +--------+---------+ + + + | Date | Type | Department | Care Team | Description | +--------+---------+ + + + | 08/23/ | Office | [facility] | Abrahan Samaniego MD | Acute pain of right | | 2019 | Visit | ORTHOPEDIC SURGERY | [address] | knee (Primary Dx) | | | | [address] [place] | [place] | | | | | [place] | [address] | | | | | [address] | | | | | | [phone] | Eugene Watkins | | | | | | MD Fady [address] [place] [address] | | | | | | [place] | | | | | | [address] | | | | | | | [...] + + + + | Weight | 68.8 kg (151 lb 10.8 | 08/23/2018 2:01 PM | | | | oz) | PDT | | + + + + + | Height | 160 cm (5' 3") | 08/23/2018 2:01 PM | | | | | PDT | | + + + + + | Body Mass Index | 26.87 | 08/23/2018 2:01 PM | | | | | PDT | | + + + + + documented in this encounter Progress Notes Eugene Watkins MD - 08/23/2018 2:00 PM Jhonny returns for a new problem. She sta hay that she has a history of intermittent bilateral knee pain for many years. However, she noted the rather intense onset of right knee pain approximate 6 months ago. She also note s that her was nearing the end of his life and was requiring increasing amounts of c are. Her then a few weeks ago and she also noted that this coincided wi th near complete resolution of her right knee pain. She had an appointment already schedule d with my office and has now come to assess her right knee for underlying pathology. Examination: Exam of the right knee reveals no abnormality to inspection. Right knee range of motion is 0-125. The patellar tracks well. There is no tenderness to palpation surro unding the entire knee joint and specifically no tenderness over either joint line or over t he pes anserinus insertion. [facility] testing is negative. Knee ligaments are stable. N eurovascular function is intact to the right foot. Imaging: X-rays taken today of the right knee reviewed carefully which show a well aligned knee with no evidence of degenerative change or acute bone injury. Advice: We have reassured Oliva that there is no evidence of significant ongoing right knee pathology. She really has no arthritis that can be identified on x-ray. She currently is doing well and we therefore will see her back in the future as needed. We did suggest the u se of [id number] anti-inflammatories if needed but she is on a chronic dose of prednis one 5 g daily from her primary care physician so we cautioned her against excessive use of a dditional anti-inflammatory medication.Electronically signed by Eugene Watkins MD at 0 08/23/2018 2:32 PM PDTdocumented in this encounter Plan of Treatment +--------+---------+ + + + | Date | Type | Specialty | Care Team | Description | +--------+---------+ + + + | 04/29/ | Office | Internal Medicine | Abrahan Samanieog MD | | | 2019 | Visit | | [address] [place] [address] | | | | | | [place] | | | | | | [address] | | | | | | | | +--------+---------+ + + + | 07/25/ | Office | Cardiology | Renetta, | | | 2020 | Visit | | [address] | | | | | | [place] | | | | | [place] [address] | | | | | | [phone] | | | | | | | [...] [facility] | Outpatient | Routin | Knee pain, | Ordered: 06/30/2018 | | Orthopedic Surgery - | Referral | e | unspecified | | | AMB Referral | | | chronicity, | | | | | | unspecified | | | | | | laterality | | + + +--------+ + + documented as of this encounter Visit Diagnoses + + | Diagnosis | + + | Acute pain of right knee - Primary | + + documented in this encounter
--- OUTSIDE RECORDS SUMMARY | ~2020-01-04 | XMS | Encounter Summary ---
Demographics + + + | Address | [address] | | | [place] [address] | + + + | Home Phone [...] + | Author | [facility] | | | and [place] [...] [place], | | | | | [place] [address] | | + + + + + | Ryan Vogt | ECON | Unknown | | + + + + + | Rob Vogt | ECON | Unknown | | + + + + + Care Team Providers + +------+ + | Care Pet Crematory Worker Name | Role | Phone | + +------+ + | Abrahan Samaniego MD | PCP | | + +------+ + Reason for Visit + + + | Reason | Comments | + + + | Follow-up | Med review | + + + Encounter Details +--------+---------+ + + + | Date | Type | Department | Care Team | Description | +--------+---------+ + + + | 03/18/ | Office | [facility] | Abrahan Samaniego MD | Gastritis (Primary | | 2011 | Visit | [address] | [address] [place] [address] | Dx) | | | | [place], | [place] | | | | | [place] [address] | [id number] | | | | | [phone] | | | +--------+---------+ + + + [...] + + + | Blood Pressure | 132/74 | 03/18/2012 3:17 PM | | | | | PDT | | + + + + + | Pulse | 80 | 03/18/2012 3:17 PM | | | | | PDT | | + + + + + | Temperature | - | - | | + + + + + | Respiratory Rate | 16 | 03/18/2012 3:17 PM | | | | | PDT | | + + + + + | Oxygen Saturation | - | - | | + + + + + | Inhaled Oxygen | - | - | | | Concentration | | | | + + + + + | Weight | 68.5 kg (151 lb) | 03/18/2012 3:17 PM | | | | | PDT | | + + + + + | Height | 160 cm (5' 3") | 03/18/2012 3:17 PM | | | | | PDT | | + + + + + | Body Mass Index | 26.75 | 03/18/2012 3:17 PM | | | | | PDT | | + + + + + documented in this encounter Progress Notes Abrahan Samaniego MD - 03/18/2012 3:37 PM PDTFormatting of this note might be different fro m the original. Subjective: Patient ID: Oliva Vogt is a 62 y.o. female. HPI BLOATING: Oliva reports that a few days after she was here she started to feel bloated and get SOB. It can come on at anytime, is not associated with CP, lightheadedness, syncope or s yncope. There is no swelling on her ankles, orthopnea, PND. She actually feels better layin g down. She thought it might be the ASA. She stopped it after 3 doses but it hasn't gotten better. She feels like she has to belch a lot. She feels "9 months ". No big changes in her diet. No change in bowel habits. No melena or BRBPR Review of Systems Denies fevers, chills, night sweats, pain aphasia, dysphasia, nausea, vomiting, melena, hem atemesis, bright red blood per rectum. No change in weight. No associated chest pain, pain in the arm, jaw, shoulder, back. Objective: Physical Exam General: Female in no acute distress. HEENT sclera normal, conjunctiva normal. Chest: Clear to auscultation. No wheezes, Rales, rhonchi. Cardiac: Regular rate and rhythm. No murmur, rub, gallop. No JVD, heave, lift. Abdomen: Nondistended. Soft. Epigastric discomfort to palpation. No masses. No rebound. No organosplenomegaly. Assessment: 1. Gastritis: I think that she has mild gastritis. I gave her samples and dexilant 60 mg by mouth daily for 10 days. Avoid aspirin and nonsteroidal anti-inflammatories. If symptom s persist or worsen she is to phone. End dictation documented in this en counter Plan of [...] | | | | | | [place] [address] | | | | | | [phone] | | | | | | | | +--------+---------+ + + + | 09/03/ | Office | Endocrinology | Cheryl Zee MD | | | 2020 | Visit | | [address] [place] | | | | | | [address] [place] | | | | | | [id number] | | | | | | | | +--------+---------+ + + + documented as of this encounter Visit Diagnoses + + | Diagnosis | + + | Gastritis - Primary Unspecified gastritis and gastroduodenitis without mention of | | hemorrhage | + + documented in this encounter
--- OUTSIDE RECORDS SUMMARY | ~2020-01-04 | XMS | Encounter Summary ---
Demographics + + + | Address | [address] | | | [place] [address] | + + + | Home Phone | | + + + | Preferred Language | Unknown | + + + | Marital Status | | + + + | Presybeterian Affiliation | 1027 | + + + | Race | Unknown | + + + | Ethnic Group | Unknown | + + + Author + + + | Author | [facility] | | | and [place] | + + + | Organization | [facility] | | | [...] [place], | | | | | [place] [address] | | + + + + + | Ryan Vogt | ECON | Unknown | | + + + + + | Rob Vogt | ECON | Unknown | | + + + + + Care Team Providers + +------+ + | Care Automobile Leasing Supervisor Name | Role | Phone | [...] | | | right knee | | [address] Phone: | | | | | as current | | [phone] | | | | | injury, | | Fax: | | | | | initial | | [phone] | | | | | encounter | [...] | | | | | | | IA KNEE | | | | | | | SCOPE,DIAGNO | | | | | | | STIC IA | | | | | | | KNEE | | | | | | | SCOPE,PART | | | | | | | SYNOVECT IA | | | | | | | KNEE | | | | | | | SCOPE,SHAVE | | | | | | | ARTICULAR | | | | | | | CART IA | | | | | | | ARTHRS KNEE | | | | | | | W/MENISCECTO | | | | | | | MY MED&LAT | | | | | | | W/SHAVING | | | | | | | IA ARTHRS | | | | | | | KNE SURG | | | | | | | W/MENISCECTO | | | | | | | MY MED/LAT | | | | | | | W/SHVG IA | | | | | | | [...] + + + + | 06/02/ | Anesthesia | [facility] | Amilcar More | | | 2019 | Event | [facility] | [address] | | | | | [address] | [place] | | | | | [place] | [place] [address] | | | | | [address] | [phone] | | | | | [phone] | | | +--------+ + + + + Anesthesia Record + + + + + | Procedure Name | Responsible | Anesthesia Start | Anesthesia Stop Time | | | Anesthesiologist | Time | | + + + + + | RIGHT KNEE | Amilcar Raymond | 06/02/19 1320 | 06/02/19 1422 | | ARTHROSCOPY AND | Argenis DO | | | | DEBRIDEMENT, partial | | | | | lateral | | | | | meniscectomy, | | | | | partial medial | | | | | meniscectomy, medial | | | | | femoral | | | | | chondroplasty, and | | | | | patellar | | | | | chondroplasty (Right | | | | | Knee) | | | | + + + + + +----+---+ + + | Da | T | Event | Comment | | te | i | | | | | m | | | | | e | | | +----+---+ + + | 12 | 1 | | | | /2 | 3 | | | | 7/ | 0 | | | | 20 | 5 | | | | 19 | | | | +----+---+ + + | | 1 | An Checkout | Pre-use anesthesia machine/equipment checkout. | | | 3 | | | | | 0 | | | | | 6 | | | +----+---+ + + | | 1 | An Start | Reassessment prior to anesthesia induction/procedure. | | | 3 | | | | | 2 | | | | | 0 | | | +----+---+ + + | | 1 | An Start | | | | 3 | Data | | | | 2 | | | | | 0 | | | +----+---+ + + | | 1 | Preoxygenat | | | | 3 | ed | | | | 2 | | | | | 2 | | | +----+---+ + + | | 1 | An | | | | 3 | Induction | | | | 2 | | | | | 5 | | | +----+---+ + + | | 1 | An | | | | 3 | Intubation | | | | 2 | | | | | 6 | | | +----+---+ + + | | 1 | Anesthesia | | | | 3 | Ready | | | | 2 | | | | | 6 | | | +----+---+ + + | | 1 | Antibiotic | | | | 3 | Given | | | | 2 | | | | | 9 | | | +----+---+ + + | | 1 | [place] | | | | 3 | 43-degrees | | | | 3 | | | | | 0 | | | +----+---+ + + | | 1 | Pre-Procedu | | | | 3 | ral Timeout | | | | 3 | Completed | | | | 6 | | | +----+---+ + + | | 1 | First | | | | 3 | Inc/Proc St | | | | 3 | | | | | 7 | | | +----+---+ + + | | 1 | [place] off | | | | 4 | | | | | 1 | | | | | 2 | | | +----+---+ + + | | 1 | Oropharynx | | | | 4 | Suctioned | | | | 1 | | | | | 5 | | | +----+---+ + + | | 1 | Extubation/ | | | | 4 | Airway LDA | | | | 1 | Removal | | | | 6 | | | +----+---+ + + | | 1 | an stop | | | | 4 | data | | | | 1 | | | | | 7 | | | +----+---+ + + | | 1 | An Stop | Patient handed off to recovery nurse. | | | 2 | | | | | 2 | | | +----+---+ + + +------+ | Meds | +------+ + + + | Name | Total | + + + | fentaNYL | 100 mcg | + + + | lidocaine 2% | 80 mg | + + + | propofol | 120 mg | + + + | ondansetron | 4 mg | + + + | ceFAZolin | 2 g | + + + | lactated ringers (LR) infusion | 1,000 mL | + + + + + | Name | + + | N2O Flow Rate (L/Min) | + + | O2 Flow Rate (L/Min) | + + | Insp O2 | + + | Exp SEV | + + | Air Flow Rate (L/Min) | + + + + | No blood administrations on file. | + + +--------+ + + + | Type | Details | Placement | Removal | +--------+ + + + | Wound | 06/02/19; 1410; Incision; Right; | 06/02/19 1410 by | | | | knee | Yoko Stapleton RN | | +--------+ + + + | Wound | 12/26/18; 1042; N; Other; Right; | 12/26/18 1042 by | 06/02/19 1703 by | | | anterior; wrist (TR BAND 9 ML OF | Davion Mcintyre, | Bernadette Sanchez RN | | | AIR IN BAND); puncture; other | Technologist | | | | (see comments); 06/02/19; 1703 | | | +--------+ + + + | Periph | 06/02/19; 1124; Left; Forearm; | 06/02/19 1124 by | 06/02/19 1810 by | | eral | parm-asp-sbupvo catheter system; | Esthela Dimas RN | Bernadette Sanchez RN | | IV | 20 gauge; distraction, | | | | | intradermal injection; no longer | | | | | indicated; 06/02/19; 1810 | | | +--------+ + + + | Airway | Placement Date: 06/02/19; | 06/02/19 1326 by | 06/02/19 1416 by | | | Placement Time: 1326 (created via | Amilcar Raymond | Amilcar Raymond | | | procedure documentation); | Argenis, | DO Argenis | | | Attempts: 1; Airway Type: | | | | | laryngeal mask; Size: 3; Trauma: | | | | | none; Placement Check: exhaled | | | | | CO2 detection device, bilateral | | | | | chest rise, breath sounds equal | | | | | bilaterally; Removal Date: | | | | | 06/02/19; Removal Time: 1416 | | | +--------+ + + + documented in this encounter Social History + +-------+ +--------+------+ | Tobacco [...] + + documented as of this encounter [place] Notes Anesthesia Postprocedure Evaluation - Amilcar More DO - 06/02/2019 4:13 PM PSTFo rmatting of this note might be different from the original. ANESTHESIA POSTANESTHESIA EVALUATION Oliva Vogt 69 y.o. female 1950 [id number] Procedure(s) RIGHT KNEE ARTHROSCOPY AND DEBRIDEMENT, partial lateral meniscectomy, partial medial meniscectomy, medial femoral chondroplasty, and patellar chondroplasty (Right Knee) Cooperates? Yes Mental Status Performs simple tasks. Respiratory Satisfactory - Airway patent (self maintained). Cardiovascular Satisfactory - Blood pressure and heart rate acceptable Temperature Satisfactory Pain Satisfactory N/V Control Satisfactory Hydration Satisfactory - No signs of dehydration Adverse Events ADVERSE EVENTS: No adverse events Vitals Value Taken Time Temp 36.8 C (98.2 F) 06/02/2019 2:19 PM Pulse 71 06/02/2019 4:12 PM Resp 16 06/02/2019 3:44 PM BP 130/65 06/02/2019 4:00 PM Arterial Line BP Arterial Line BP 2 SpO2 96 % 06/02/2019 4:12 PM Vitals shown include unvalidated device data. Electronically signed by Amilcar More DO 06/02/2019 4:13 PM [facility] gamal Cameron t 06/02/2019 4:13 PM PSTAnesthesia Procedure Notes - Amilcar More DO - 06/02/2019 1:33 PM PSTAssociated Order(s): AirwayAnesthesia Airway Placement 06/02/2019 1:26 PM Preprocedure check: patient identified, airway equipment checked, suction, oxygen, patient reassessment prior to induction and airway assessed Attempts: 1 Airway type: laryngeal mask Size: 3 Trauma: none Tube placement verification: bilateral chest rise, equal bilateral breath sounds and carbon dioxide detection Performing provider: Amilcar More DO Authorizing provider: Amilcar More DO Please see intraoperative grid for any additional medication documentation. nesthesia Prep rocedure Evaluation - Amilcar More DO - 06/01/2019 2:49 PM PST ANESTHESIA PREANESTHESIA EVALUATION Oliva Vogt 69 y.o. female 1950 [id number] Procedure(s): RIGHT KNEE ARTHROSCOPY AND DEBRIDEMENT (Right Knee) Medical,anesthesia, drug, allergy histories reviewed, NPO status verified. ECG reviewed. Labs reviewed. Review of Systems / Med History Anesthesia History (+) pseudocholinesterase deficiency.(-) PONV, difficult intubation, malignant hyperthermia . Cardiovascular Last EKG: Results for orders placed or performed in visit on 12/05/18 -ECG 12 lead Result Value Ref Ra nge INTERPRETATION TEXT Normal sinus rhythm Normal ECG When compared with ECG of 10-NOV-2018 11:07, No significant change was found Confirmed by LIZZETTE MONTIEL, LAURI ([id number]) on 12/05/2018 4:26:27 PM . (-) hypertension (-) congestive heart failure. (-) coronary artery disease. . Pulmonary (-) shortness of breath, recent URI, Chronic Obstructive Pulmonary Disease.(-) sleep apnea. (-) asthma. Gastrointestinal/Hepatic (+) hypercholesterolemia. (-) acid reflux. Renal (+) chronic renal insufficiency. Endocrine Guero syndrome. (+) adrenal insufficiency, hypothyroidism. (-) Diabetes. Hematology/Other (-) anemia. Neuromuscular (+) back pain. (-) neuromuscular disease. Physical Exam Airway MP II, TM >3 FB, Mouth opening >2 FB. Neck: full ROM, extends >30 degrees. Jaw protrus ion normal. CV cardiovascular normal Rhythm regular. Rate normal. Pulm Clear to auscultation bilaterally. Neuro grossly normal. Anesthesia Plan ASA: 3 (Adrenal insufficency ) Type: General. Induction: Intravenous. Potential problems: None anticipated. Monitors: Standard ASA monitors. Postop Pain Management: Consent statement: Anesthetic plan, alternatives, risks and benefits discussed with patient. drug reaction, he art problems, muscle aches, nausea, pain, perioperative CV events, respiratory events, sore throat, stroke, delirium Consenting person understands and agrees to proceed. PARQ. Electronically Signed by: Amilcar More DO ESig date/time: 06/01/2019 2:49 PM documented in t his encounter Miscellaneous Notes Anesthesia Post-op Handoff - Amilcar More DO - 06/02/2019 2:21 PM PST ANESTHESIA HANDOFF NOTE Oliva Vogt 69 y.o. female 1950 [id number] RIGHT KNEE ARTHROSCOPY AND DEBRIDEMENT, partial lateral meniscectomy, partial medial menisc ectomy, medial femoral chondroplasty, and patellar chondroplasty (Right Knee) HANDOFF NOTE Handoff Protocol Used: post-procedure handoff checklist completed The following were completed during the transfer of care: 1. Identification of patient 2. Identification of responsible practitioner (primary service) 3. Discussion of pertinent medical history 4. Discussion of the surgical/procedure course (procedure, reason for surgery, procedure pe rformed) 5. Intraoperative anesthetic management and issues/concerns 6. Expectations/plans for the early post-procedure period 7. Opportunity for questions and acknowledgement of understanding of report from receiving team Patient Location: Phase I Condition: sedated Airway/O2: other (see comments) Multimodal analgesia: multimodal analgesia used between 6 hours prior to anesthesia start t o PACU discharge Comments: Supplemental Oxygen used as necessary to maintain Oxygen Saturation at or above 9 2% The significant anesthesia concerns and VS in Epic were reviewed with the receiving team. Amilcar More DO 06/02/2019 2:21 PM [facility] Amilcar More DO a t 06/02/2019 2:21 PM PSTdocumented in this encounter Plan of Treatment +--------+---------+ + + + | Date | Type | Specialty | Care Team | Description | +--------+---------+ + + + | 04/29/ | Office | Internal Medicine | Abrahan Samaniego MD | | | 2019 | Visit | | [address] | | | | | | [place] | | | | | | [address] | | | | | | | | +--------+---------+ + + + | 07/25/ | Office | Cardiology | Renetta, | | | 2020 | Visit | | [facility] [address] | | | | | | [place] | | | | | | [place] [address] | | | | | | [phone] | | | | | | | | +--------+---------+ + + + | 09/03/ | Office | Endocrinology | Cheryl Zee MD | | | 2020 | Visit | | [address] [place] | | | | | | [address] [place] | | | | | | [phone] | | | | | | | | +--------+---------+ + + + documented as of this encounter Procedures + +--------+ + + + | Procedure Name | Priori | Date/Time | Associated Diagnosis | Comments | | | ty | | | | + +--------+ + + + | ANE AIRWAY NOTE | Routin | 06/02/2019 | | Results for this | | | e | 1:33 PM | | procedure are in the | | | | PST | | results section. | + +--------+ + + + documented in this encounter Results Airway (06/02/2019 1:33 PM PST) + + + | Narrative | Performed At | + + + | Amilcar More DO 06/02/2019 1:34 PM Anesthesia | | | Airway Placement 06/02/2019 1:26 PM Preprocedure check: patient | | | identified, airway equipment checked, suction, oxygen, patient | | | reassessment prior to induction and airway assessed Attempts: 1 | | | Airway type: laryngeal mask Size: 3 Trauma: none Tube placement | | | verification: bilateral chest rise, equal bilateral breath sounds | | | and carbon dioxide detection Performing provider: Amilcar Raymond | | | DO Argenis Authorizing provider: Amilcar More DO | | | Please see intraoperative grid for any additional medication | | | documentation. | | + + + documented in this encounter Visit Diagnoses Not on filedocumented in this encounter Administered Medications + +--------+ +------+------+------+ | Medication Order | MAR | Action | Dose | Rate | Site | | | Action | Date | | | | + +--------+ +------+------+------+ | ceFAZolin (ELANA LYNNEFZOL) | Given | 06/02/20 | 2 g | | | | injection Intravenous, PRN, | | 19 1:29 | | | | | Starting 06/02/19 at 1329, | | PM PST | | | | | Anesthesia Intra-op | | | | | | + +--------+ +------+------+------+ +---+---+ | | | +---+---+ + +-------+ +--------+---+---+ | fentaNYL (PF) injection | Given | 06/02/20 | 25 mcg | | | | Intravenous, PRN, Starting Fri | | 19 1:33 | | | | | 06/02/19 at 1325, Anesthesia | | PM PST | | | | | Intra-op | | | | | | + +-------+ +--------+---+---+ +-------+ +--------+---+---+ | Given | 06/02/20 | 25 mcg | | | | | 19 1:29 | | | | | | PM PST | | | | +-------+ +--------+---+---+ | Given | 06/02/20 | 50 mcg | | | | | 19 1:25 | | | | | | PM PST | | | | +-------+ +--------+---+---+ +---+---+ | | | +---+---+ + +-------+ +-------+---+---+ | lidocaine (PF) 2% injection | Given | 06/02/20 | 80 mg | | | | Intravenous, PRN, Starting Fri | | 19 1:25 | | | | | 06/02/19 at 1325, Anesthesia | | PM PST | | | | | Intra-op | | | | | | + +-------+ +-------+---+---+ +---+---+ | | | +---+---+ + +-------+ +------+---+---+ | ondansetron (ZOFRAN) injection | Given | 06/02/20 | 4 mg | | | | Intravenous, PRN, Starting Fri | | 19 1:29 | | | | | 06/02/19 at 1329, Anesthesia | | PM PST | | | | | Intra-op | | | | | | + +-------+ +------+---+---+ +---+---+ | | | +---+---+ + +-------+ +--------+---+---+ | propofol (DIPRIVAN) injection | Given | 06/02/20 | 120 mg | | | | Intravenous, PRN, Starting Fri | | 19 1:25 | | | | | 06/02/19 at 1325, Anesthesia | | PM PST | | | | | Intra-op | | | | | | + +-------+ +--------+---+---+ +---+---+ | | | +---+---+ documented in this encounter"
--- OUTSIDE RECORDS SUMMARY | ~2020-01-04 | XMS | Encounter Summary ---
Demographics + + + | Address | [address] | | | [place] [address] | + + + | Home Phone [...] Author | [facility] | | | and [...] [place], | | | | | [place] [address] | | + + + + + | Ryan Vogt | ECON | Unknown | | + + + + + | Rob Vogt | ECON | Unknown | | + + + + + Care Team Providers + +------+ + | Care Fireworks Display Specialist Name | Role | Phone | + +------+ + | Abrahan Samaniego MD | PCP | | + +------+ + Reason for Visit +--------+--------+ + | Reason | Onset | Comments | | | Date | | +--------+--------+ + | Other | 02/01/ | | | | 2018 | | +--------+--------+ + Encounter Details +--------+ + + + + | Date | Type | Department | Care Team | Description | +--------+ + + + + | 02/01/ | Telephone | [facility] | Cheryl Zee MD | Other | | 2018 | | [facility] [place] | [address] [place] | | | | | ENDOCRINOLOGY [address] | [address] [place] | | | | [address] [place] [address] | [phone] | | | | | [place] | | | | | | [address] | | | | | | [phone] | | | +--------+ + + + [...] encounter Miscellaneous Notes Telephone Encounter - Oliva Son Repairer Wood Furniture - 02/07/2019 2:55 PM PDTSpoke wit h patient she understands with no questions at this time elephone Encounter - Oliva Son [facility] amanda Senior Unix Administrator - 02/01/2019 10:54 AM PDTCalled patient no answer no voice mail will call [facility] ent back. Patients MRI has been approved patient needs to have her BMD drawn and can call [facility] to schedule MRI [phone].Electronically signed by Darnell Urias Assistant at 0 02/01/2019 10:58 AM PDTdocumented in this encounter Plan of Treatment +--------+---------+ + + + | Date | Type | Specialty | Care Team | Description | +--------+---------+ + + + | 04/29/ | Office | Internal Medicine | Abrahan Samaniego MD | | | 2019 | Visit | | [address] [facility] | | | | | | [place] | | | | | | [address] | | | | | | | | +--------+---------+ + + + | 07/25/ | Office | Cardiology | Renetta, | | | 2020 | Visit | | [facility] [address] | | | | | | [place], | | | | | | [place] [address] | | | | | | [phone] | | | | | | | | +--------+---------+ + + + | 09/03/ | Office | Endocrinology | Cheryl Zee MD | | | 2020 | Visit | | [address] [place] | | | | | | [address] [place] | | | | | | [address] | | | | | | | | +--------+---------+ + + + documented as of this encounter Visit Diagnoses Not on filedocumented in this encounter"
--- OUTSIDE RECORDS SUMMARY | ~2020-01-04 | XMS | Encounter Summary ---
Demographics + + + | Address | [address] | | | [place] [address] | + + + | Home Phone [...] | Author | [facility] [...] [place], | | | | | [place] [address] | | + + + + + [...] | Specialty | Orthopedic | Diagnoses | Aedn, | Roland, | | | Services | Surgery | Knee pain, | Abrahan Cortez MD | Eugene Shrestha MD | | | Required | | unspecified | [address] | [address] | | | | | chronicity, | STRE[address] | [address] | | | | | unspecified | [place], | [facility], [place] | | | | | laterality | [place] [address] | [address] Phone: | | | | | | Phone: | [phone] | | | | | | [phone] | Fax: | | | | | | Fax: | [phone] | | | | | | [phone] | | +--------+ + + + + + Reason for Visit + +--------+ + | Reason | Onset | Comments | | | Date | | + +--------+ + | Appointment | 06/29/ | | | | 2018 | | + +--------+ + Encounter Details +--------+ + + + + | Date | Type | Department | Care Team | Description | +--------+ + + + + | 06/29/ | Telephone | [facility] | Abrahan Samaniego MD | Appointment | | 2018 | | [address] | [address] [place] [address] | | | | | [place], | [place], [place] | | | | | [place] [address] | [phone] | | | | | [phone] | | | +--------+ + + + [...] Telephone Encounter - Christina Wilson LPN - 06/30/2018 2:59 PM PSTPatient states she cont inues with right knee pain and requests referral to Dr. Watkins. Referral queued for sign ature if appropriate elephone Encounter - OrtegaMikki - 06/29/2018 4:08 PM PSTPatient called and states abiodun montalvo is unsure how she hurt her knee. Hurts when twisting. Patient would like to see her primar y or speak with nurse regarding this. Soonest available appointment is 07/18, is there a hold that can be used to see patient sooner? Please advise. documented in this encounter Plan of Treatment +--------+---------+ + + + | Date | Type | Specialty | Care Team | Description | +--------+---------+ + + + | 04/29/ | Office | Internal Medicine | Abrahan Samaniego MD | | | 2019 | Visit | | [address] [place] [address] | | | | | | [place] | | | | | | [address] | | | | | | | | +--------+---------+ + + + | 07/25/ | Office | Cardiology | Renetta, | | | 2020 | Visit | | [facility] [address] | | | | | | [place], | | | | | | [place] [address] | | | | | | [phone] | | | | | | | | +--------+---------+ + + + | 09/03/ | Office | Endocrinology | Cheryl Zee MD | | | 2020 | Visit | | [address] [place] [place] | | | | | | [address] [place] | | | | | | [phone] | | | | | | | | +--------+---------+ + + + + + +--------+ + + | Name | Type | Priori | Associated Diagnoses | Order Schedule | | | | ty | | | + + +--------+ + + | * [facility] [place] | Outpatient | Routin | Knee pain, [...] + | Diagnosis | + + | Knee pain, unspecified chronicity, unspecified laterality - Primary | + + documented in this encounter"
--- OUTSIDE RECORDS SUMMARY | ~2020-01-04 | XMS | Encounter Summary ---
Demographics + + + | Address | [address] | | | [place] [address] | + + + | Home Phone [...] Author | [facility] | [...] [place], | | | | | [place] [address] | | + + + + + | Ryan Vogt | ECON | Unknown | | + + + + + | Rob Vogt | ECON | Unknown | | + + + + + Care Team Providers + +------+ + | Care Teradata Solution Architect Name | Role | Phone | + +------+ + | Abrahan Samaniego MD | PCP | | + +------+ + Reason for Visit +---------+--------+ + | Reason | Onset | Comments | | | Date | | +---------+--------+ + | Results | 10/15/ | | | | 2015 | | +---------+--------+ + Encounter Details +--------+ + + + + | Date | Type | Department | Care Team | Description | +--------+ + + + + | 10/15/ | Telephone | [facility] [place] [facility] | Abrahan Samaniego MD | Results | | 2015 | | MEDICINE [address] | [address] [facility] | | | | | [place], | [place] | | | | | [place] [address] | [address] | | | | | [phone] | | | +--------+ + + + [...] Telephone Encounter - Abrahan Samaniego MD - 10/16/2015 2:53 PM PDTShe does not need a TSH. Since her pituitary doesn't work she needs a free T4. Please cancel the TSH and order the fr ee T4. Nothing else is needed. TTelephone Encounter - Christina Wilson LPN - 10/16/2015 1:56 PM PDTPatient needs TSH - are there other labs Dr. Samaniego would like to order elephone Encounter - Harry Mark - 10/16/2015 12:5 8 PM PDTContact/Caller: Oliva Contact Number: [phone] Provider/Nurse: Aden Reason for Call: Patient is calling to talk with nurse about TSH from Dr. Zee. Please co ntact patient. Last Appointment: 06-27-15 Next Appointment: None documented in th is encounter Plan of Treatment +--------+---------+ + + + | Date | Type | Specialty | Care Team | Description | +--------+---------+ + + + | 04/29/ | Office | Internal Medicine | Abrahan Samaniego MD | | | 2019 | Visit | | [address] | | | | | | [place] | | | | | | [address] | | | | | | | | +--------+---------+ + + + | 07/25/ | Office | Cardiology | Renetta, | | | 2020 | Visit | | [facility] [address] | | | | | | [place], | | | | | | [place] [address] | | | | | | [phone] | | | | | | | | +--------+---------+ + + + | 09/03/ | Office | Endocrinology | Cheryl Zee MD | | | 2020 | Visit | | [address] | | | | | | [address] [place] | | | | | | [phone] | | | | | | | | +--------+---------+ + + + documented as of this encounter Visit Diagnoses + + | Diagnosis | + + | Hypothyroidism, unspecified type - Primary | + + documented in this encounter"
--- OUTSIDE RECORDS SUMMARY | ~2020-01-04 | XMS | Encounter Summary ---
Demographics + + + | Address | [address] | | | [place] [address] | + + + | Home Phone [...] + | Author | [facility] | | | and [place] [...] [place], | | | | | [place] [address] | | + + + + + | Ryan Vogt | ECON | Unknown | | + + + + + | Rob Vogt | ECON | Unknown | | + + + + + Care Team Providers + +------+ + | Care Community Development Officer Name | Role | Phone | [...] Description | +--------+--------+ + + + | 06/24/ | Refill | [facility] | Abrahan Samaniego MD | Medication Refill | | 2012 | | MEDICINE [address] [place] [address] | [address] [place] [address] | | | | | [place], | [place] | | | | | [place] [address] | [address] | | | | | [phone] | | | +--------+--------+ + + + [...] | 2019 | Visit | | [address] [place] [address] | | | | | | [place] | | | | | | [address] | | | | | | | | +--------+---------+ + + + | 07/25/ | Office | Cardiology | Renetta, | | | 2020 | Visit | | P[address] [address] | | | | | | [place] | | | | | | [place] [address] | | | | | | [phone] | | | | | | | | +--------+---------+ + + + | 09/03/ | Office | Endocrinology | Cheryl Zee MD | | | 2020 | Visit | | [address] [place] | | | | | | [address] [place] | | | | | | [address] | | | | | | | | +--------+---------+ + + + documented as of this encounter Visit Diagnoses Not on filedocumented in this encounter"
--- OUTSIDE RECORDS SUMMARY | ~2020-01-04 | XMS | Encounter Summary ---
Demographics + + + | Address | [address] | | | [place] [address] | + + + | Home Phone [...] | Author | [facility] | | | and [place] [...] [place], | | | | | [place] [address] | | + + + + + | Ryan Vogt | ECON | Unknown | | + + + + + | Rob Vogt | ECON | Unknown | | + + + + + Care Team Providers + +------+ + | Care Tool Designer Name | Role | Phone | + +------+ + | Abrahan Samaniego MD | PCP | | + +------+ + Encounter Details +--------+ + + + + | Date | Type | Department | Care Team | Description | +--------+ + + + + | 03/28/ | Hospital | [facility] | Eugene Watkins | Right knee pain, | | 2019 | Encounter | [facility] | MD Fady [address] [facility] | unspecified | | | | [address] | [place] | chronicity; Acute | | | | [place] | [address] | pain of right knee | | | | [address] | | | | | | [phone] | | | +--------+ + + + [...] | | | | Angina at rest ([facility]) | | | | | | + [...] [place] | | | | | | [address] | | | | | | | | +--------+---------+ + + + | 07/25/ | Office | Cardiology | Renetta, | | | 2020 | Visit | | [address] | | | | | | [place], | | | | | | [place] [address] | | | | | | [phone] | | | | | | | | +--------+---------+ + + + | 09/03/ | Office | Endocrinology | Cheryl Zee MD | | | 2020 | Visit | | [address] [place] | | | | | | [address] [place] | | | | | | [phone] | | | | | | | | +--------+---------+ + + + + +---------+--------+ + + | Name | Type | Priori | Associated Diagnoses | Order Schedule | | | | ty | | | + +---------+--------+ + + | XR Knee Right 4 + Vw | Imaging | Routin | Right knee pain, | 1 Occurrences | | | | e | unspecified | starting 03/28/2019 | | | | | chronicity Acute | until 03/28/2019 | | | | | pain of right knee | | + +---------+--------+ + + documented as of this encounter Visit Diagnoses + + | Diagnosis | + + | Right knee pain, unspecified chronicity | + + | Acute pain of right knee | + + documented in this encounter"
--- OUTSIDE RECORDS SUMMARY | ~2020-01-04 | XMS | Encounter Summary ---
Demographics + + + | Address | [address] | | | [place] [address] | + + + | Home Phone [...] Author | [facility] | | | and [place] [...] [place], | | | | | [place] [address] | | + + + + + | Ryan Vogt | ECON | Unknown | | + + + + + | Rob Vogt | ECON | Unknown | | + + + + + Care Team Providers + +------+ + | Care Template Reproduction Technician Name | Role | Phone | + +------+ + | Abrahan Samaniego MD | PCP | | + +------+ + Encounter Details +--------+ + + + + | Date | Type | Department | Care Team | Description | +--------+ + + + + | 08/05/ | Hospital | [facility] | | | | 2011 | Encounter | MED CTR LABORATORY | | | | | | [address] [place] | | | | | | [place] | | | | | | [address] | | | | | | [phone] | | | +--------+ + + + [...] | | | | | | [place] [address] | | | | | | [phone] | | | | | | | [...] | + +--------+ + + + | CREATININE, URINE, | Routin | 08/06/2011 | | Results for this | | 24HR | e | 12:15 PM | | procedure are in the | | | | PST | | results section. | + +--------+ + + + | IMMUNOFIXATION, | Routin | 08/06/2011 | | Results for this | | URINE, REFLEXED | e | 12:15 PM | | procedure are in the | | | | PST | | results section. | + +--------+ + + + documented in this encounter Results Immunofixation, Urine, Reflexed (08/06/2011 12:15 PM PST) + + + + + + | Component | Value | Ref Range | Performed | Pathologist | | | | | At | Signature | + + + + + + | Collection | 24 | hours | [facility] | | | Duration | | | [facility] | | | | | | MEDICAL | | | | | | CENTER - | | | | | | LABORATORY | | + + + + + + | Urine | 1120 | mL | [facility] | | | Volume | | | [facility] | | | | | | MEDICAL | | | | | | CENTER - | | | | | | LABORATORY | | + + + + + + | PROTEIN, | NDComment: 24 HOUR | <100 mg/24hr | [facility] | | | 24HR URINE | PROTEIN IS NOT | | [facility] | | | | CALCULATED BECAUSE | | MEDICAL | | | | MEASURED VALUE IS | | CENTER - | | | | BELOW THE QUANTIFIABLE | | LABORATORY | | | | RANGE. | | | | + + + + + + | Immunofixat | *SEE SCANNED REPORT* | | [facility] | | | ion, Urine | | | [facility] | | | Interp | | | MEDICAL | | | [...] + | [facility] | [address] | [place], [place] | [phone] | | [facility] | | [address] | | | - LABORATORY | | | | + + + + + | [facility] | [address] | [place] | | | [facility] | | [address] [place] [address] | | | - LABORATORY | | | | + + + + + Creatinine, Urine, 24Hr (08/06/2011 12:15 PM PST) + + + + + + | Component | Value | Ref Range | Performed | Pathologist | | | | | At | Signature | + + + + + + | Collection | 24 | hours | [facility] | | | Duration | | | [facility] | | | | | | MEDICAL | | | | | | CENTER - | | | | | | LABORATORY | | + + + + + + | Urine | 1120 | mL | [facility] | | | Volume | | | [facility] | | | | | | MEDICAL | | | | | | CENTER - | | | | | | LABORATORY | | + + + + + + | Creatinine, | 1.20Comment: THE | 0.6 - 1.6 | [facility] | | | Urine | REFERENCE RANGES GIVEN | gm/24hr | [facility] | | | (mg/24hr) | ARE INTENDED A GUIDE. | | MEDICAL | | | | A BETTER VALUE CAN BE | | CENTER - | | | | CALCULATED UTILIZING | | LABORATORY | | | | PATIENT WEIGHT | | | | | | 24 HOUR URINE NORMAL | | | | | | RANGE: 1-26 MG/KG/24HR | | | | | | | | | | + + + + + + + + | Specimen | + + | | + + + + + + + | Performing | Address | City/State/Zipcode | Phone Number | | Organization | | | | + + + + + | [facility] | [address] | [place] | [phone] | | [facility] | | [address] | | | - LABORATORY | | | | + + + + + | [facility] | [address] | [place], [place] | | | [facility] | | [address] | | | - LABORATORY | | | | + + + + + documented in this encounter Visit Diagnoses Not on filedocumented in this encounter"
--- OUTSIDE RECORDS SUMMARY | ~2020-01-04 | XMS | Encounter Summary ---
Demographics + + + | Address | [address] | | | [place] [address] | + + + | Home Phone [...] Author | [facility] | [...] [place], | | | | | [place] [address] | | + + + + + | Ryan Vogt | ECON | Unknown | | + + + + + | Rob Vogt | ECON | Unknown | | + + + + + Care Team Providers + +------+ + | Care Flute Grinder Name | Role | Phone | + [...] Description | +--------+---------+ + + + | 11/03/ | Office | [facility] | Ulices Simmons | Sprain of left | | 2012 | Visit | [facility] | MD Ricco Need | shoulder (Primary | | | | [place] [address] | updated address | Dx); Place of | | | | [address] [place] [address] [facility] | | occurrence, | | | | [place] | | industrial places | | | | [address] | | and premises | | | | [phone] | | | +--------+---------+ + + + [...] + + + | Blood Pressure | 116/68 | 11/03/2012 10:03 AM | | | | | PDT | | + + + + + | Pulse | 72 | 11/03/2012 10:03 AM | | | | | PDT | | + + + + + | Temperature | 36.7 C (98 F) | 11/03/2012 10:03 AM | | | | | PDT | | + + + + + | Respiratory Rate | 16 | 11/03/2012 10:03 AM | | | | | PDT | | + + + + + | Oxygen Saturation | - | - | | + + + + + | Inhaled Oxygen | - | - | | | Concentration | | | | + + + + + | Weight | 69.9 kg (154 lb) | 11/03/2012 10:03 AM | | | | | PDT | | + + + + + | Height | 160 cm (5' 3") | 11/03/2012 10:03 AM | | | | | PDT | | + + + + + | Body Mass Index | 27.28 | 11/03/2012 10:03 AM | | | | | PDT | | + + + + + documented in this encounter Progress Notes Ulices Simmons MD - 11/03/2012 11:16 AM PDTSee dictation [id number] liban d by Ulices Simmons MD at 11/03/2012 11:17 AM Ulices Deleon MD - 11/04/19 13 12:00 AM PDT O[facility] [address] [place] [address] [place] [address] FAX: [phone] OFFICE VISIT CLAIM NUMBER: [id number] DATE OF INJURY: 01/06/2012 EMPLOYER: [employer] GUARANTOR: Mario Serrano COMPLAINT: Left shoulder sprain, scheduled followup. S: The injured worker is 62 years of age, here for a scheduled followup. She is doing reas onably well, she is making reasonably good progress with her physical therapy. She notes th at she occasionally feels there is minimal discomfort, although has not yet had a sense that there was complete resolution of symptoms. She is still doing modified duty work, she stil l has some scheduled dedicated physical therapy sessions, but is optimistic that she will c ontinue to do well. She does not feel like she is able to return to all of her regular work responsibilities at this point in time, but she notes that pretty much coworkers are chris ting her for those requirements of overhead work and she is doing reasonably well with this and no one seems to be minding. OBJECTIVE GENERAL: Well-developed, well-nourished female in no acute distress. NECK: Shows no restri ction to range of motion or symptoms to suggest an occult cervical radiculopathy contributi ng to her shoulder problems. The shoulder joint itself shows no acute tenderness. She has r easonably good range of motion on forward flexion and elevation with only mild complaints o f discomfort at the extremes of elevation. Apley lift-off and back scratch tests are perfor med somewhat cautiously, but she has almost near full range of motion when compared with th e uninvolved right side. Internal and external rotation are not particularly restricted. Sh selvin has good distal neurocirculatory response. IMAGING/DIAGNOSTICS: None indicated based on our evaluation this date. PENDING INTERVENTIONS: Continue conservative measures with gradual advancement of activitie s as tolerated. A: SPRAIN, LEFT SHOULDER, SATISFACTORY PROGRESS WITH INITIATION OF CONSERVATIVE TREATMENT. P: She will continue with the scheduled physical therapy sessions. I would like for her to transition into a home exercise program and she is going to be rechecked in a 4-week period of time, by Dr. Yu, who will be seeing injured workers in my absence, and a determin ation can be made as to whether she is at MMI status and can be released from care or [facility] er further diagnostic or treatment interventions are indicated. Certainly, she may follow u p on a p.r.n. basis in the interim. She voiced understanding and agreement. E: Modified duty. R: Restrictions are just to avoid overhead work with the right arm. Impairment undetermined , but based on current objective findings not felt to be a likely consequence of this injur y. She is not yet MMI status for the above reasons. Cam Simmons MD / BLAYNE JOB #: [id number] signed by Ulices Simmons MD at 11/04/2012 8:34 AM PDTd ocumented in this encounter Miscellaneous Notes Plan of Care - BISHNU SCAN WAAL - 11/03/2012 12:00 AM PDT documented in this encounter [...] [place] | | | | | | [address] | | | | | | | | +--------+---------+ + + + | 07/25/ | Office | Cardiology | Renetta, | | | 2020 | Visit | | [address] [address] | | | | | | [place] | | | | | | [place] [address] | | | | | | [phone] | | | | | | | | +--------+---------+ + + + | 09/03/ | Office | Endocrinology | Cheryl Zee MD | | | 2020 | Visit | | [address] [place] | | | | | | [address] [place] | | | | | | [phone] | | | | | | | [...]
--- OUTSIDE RECORDS SUMMARY | ~2020-01-04 | XMS | Encounter Summary ---
Demographics + + + | Address | [address] | | | [place] [address] | + + + | Home Phone | | + + + | Preferred Language | Unknown | + + + | Marital Status | | + + + | Protestant Affiliation | 1027 | + + + | Race | Unknown | + + + | Ethnic Group | Unknown | + + + Author + + + | Author | [facility] | | [...] [place], | | | | | [place] [address] | | + + + + + | Ryan Vogt | ECON | Unknown | | + + + + + | Rob Vogt | ECON | Unknown | | + + + + + Care Team Providers + +------+ + | Care Type Caster Name | Role | Phone | + +------+ + | Abrahan Samaniego MD | PCP | | + +------+ + Encounter Details +--------+ + + + + | Date | Type | Department | Care Team | Description | +--------+ + + + + | 12/20/ | Orders Only | [facility] | Cheryl Zee MD | Hypopituitarism | | 2019 | | [facility] [place] | [address] [place] | (HCC) (Primary Dx) | | | | ENDOCRINOLOGY [address] | [address] [place] | | | | | [address] | [address] | | | | | [place] | | | | | | [address] | | | | | | [phone] | | | +--------+ + + + [...] [place] | | | | | | [place] [address] | | | | | | [phone] | | | | | | | | +--------+---------+ + + + | 09/03/ | Office | Endocrinology | Cheryl Zee MD | | | 2020 | Visit | | [address] [place] | | | | | | [address] [place] | | | | | | [id number] | | | | | | | | +--------+---------+ + + + documented as of this encounter Results Phosphorus (01/10/2019 8:04 AM PDT) + +-------+ + + + | Component | Value | Ref Range | Performed | Pathologist | | | | | At | Signature | + +-------+ + + + | Phosphorus | 3.1 | 2.4 - 5.1 mg/dL | [facility] [...] | [address] | [place] | [phone] | | [facility] | | [address] | | | - LABORATORY | | | | + + + + + Insulin-Like Growth Factor 1 (01/10/2019 8:04 AM PDT) + +-------+ + + + | Component | Value | Ref Range | Performed | Pathologist | | | | | At | Signature | + +-------+ + + + | Insulin-lik | 77 | 38 - 163 ng/mL | [facility] | | | e Growth | | | LAB [facility] | | | Factor 1 | | | - [place] | | + +-------+ + + + + + | Specimen | + + | Blood | + + + + + | Narrative | Performed At | + + + | Performed at: 01 - [facility] [address], | REFERENCE LAB | | [place], [place] [id number] Cinema Or Theatre Manager: Sheron Vera MD, Phone: | [place] [place] | | [phone] | | + + + + + + + + | Performing | Address | City/State/Zipcode | Phone Number | | Organization | | | | + + + + + | REFERENCE LAB | [address] | [place], [place] | [phone] | | [facility] | [address] | [address] | | + + + + + TSH (01/10/2019 8:04 AM PDT) + + + + + + | Component | Value | Ref Range | Performed | Pathologist | | | | | At | Signature | + + + + + + | TSH | 0.01 (L) | 0.55 - 4.78 | [facility] | | | | | uIU/mL | [facility] | | | | [...] [address] | [place] | [phone] | | [facility] | | [address] | | | - LABORATORY | | | | + + + + + Comprehensive Metabolic Panel (01/10/2019 8:04 AM PDT) + + + + + + | Component | Value | Ref Range | Performed | Pathologist | | | | | At | Signature | + + + + + + | Na | 143 | 136 - 145 | [facility] | | | | | mmol/L | [facility] | | | | | | MEDICAL | | | | | | CENTER - | | | | | | LABORATORY | | + + + + + + | K | 3.7 | 3.4 - 5.1 | [facility] | [...] + + | Glucose | 85 | 60 - 106 mg/dL | [facility] [...] + + + + | Creatinine | 1.16 (H) | 0.55 - 1.02 | [facility] | | | | | mg/dL | [facility] | | | | | | MEDICAL | | | | | | CENTER - | | | | | | LABORATORY | | + + + + + + | eGFR, | 46 (L)Comment: | >=60 | [facility] | | | non- | GLOMERULAR FILTRATION | mL/min/1.73m2 | [facility] | | | Israeli | RATE,ESTIMATED | | MEDICAL | | | | mL/min/1.03z6Imqb than | | CENTER - | | [...] | Albumin | 3.9 | 3.2 - 4.8 g/dL | [facility] [...] + + + + | AST | 20 | 0 - 34 U/L | [facility] | | | | | | [facility] | | | | | | MEDICAL | | | | | | CENTER - | | | | | | LABORATORY | | + + + + + + | ALT | 37 | 10 - 49 U/L | [facility] | | | | | | [facility] | | | | | | MEDICAL | | | | | | CENTER - | | | | | | LABORATORY | | + + + + + + | Alkaline | 72 | 46 - 116 U/L | [facility] | | | Phosphatase | | | [facility] | | | | | | MEDICAL | | | | | | CENTER - | | | | | | LABORATORY | | + + + + + + | Globulin | 2.1 | 2.1 - 3.8 g/dL | [facility] | | | | | | [facility] | | | | | | MEDICAL | | | | | | CENTER - | | | | | | LABORATORY | | + + + + + + | Albumin/Rachel | 1.9 | 0.8 - 1.9 | [facility] | | | bulin Ratio | | | [facility] | | | | | | MEDICAL | | | | | | CENTER - | | | | | | LABORATORY | | + + + + + + | BUN/Creatin | 14.7 | | [facility] | | | ine [...] + | [facility] | [address] | [place] | [phone] | | [facility] | | [address] | | | - LABORATORY | | | | + + + + + T4, Free (01/10/2019 8:04 AM PDT) + +-------+ + + + | Component | Value | Ref Range | Performed | Pathologist | | | | | At | Signature | + +-------+ + + + | FT4 | 1.3 | 0.9 - 1.8 ng/dL | [facility] [...] [facility]. | [address] | [place] | [phone] | | [facility] | | [address] | | | - LABORATORY | | | | + + + + + documented in this encounter Visit Diagnoses + + | Diagnosis | + + | Hypopituitarism (HCC) - Primary Panhypopituitarism | + + documented in this encounter"
--- OUTSIDE RECORDS SUMMARY | ~2020-01-04 | XMS | Encounter Summary ---
Demographics + + + | Address | [address] | | | [place] [address] | + + + | Home Phone | | + + + | Preferred Language | Unknown | + + + | Marital Status | | + + + | Voodoo Affiliation | 1027 | + + + | Race | Unknown | + + + | Ethnic Group | Unknown | + + + Author + + + | Author | [facility] | | | and [place] | + + + | Organization | [facility] | | [...] [place], | | | | | [place] [address] | | + + + + + | Ryan Vogt | ECON | Unknown | | + + + + + | Rob Vogt | ECON | Unknown | | + + + + + Care Team Providers + +------+ + | Care Able Bodied Seaman Name | Role | Phone | + +------+ + | Abrahan Samaniego MD | PCP | | + +------+ + Reason for Visit + +--------+ + | Reason | Onset | Comments | | | Date | | + +--------+ + | Lab Results | 05/16/ | | | | 2019 | | + +--------+ + Encounter Details +--------+ + + + + | Date | Type | Department | Care Team | Description | +--------+ + + + + | 05/16/ | Telephone | [facility] | Cheryl Zee MD | Lab Results | | 2019 | | [place] | [address] [place] | | | | | ENDOCRINOLOGY [address] | [address] [place] | | | | | [address] [place] [address] | [phone] | | | | | [place] | | | | | | [address] | | | | | | [phone] | | | +--------+ + + + [...] this encounter Miscellaneous Notes Telephone Encounter - Modesta Jett Entertainer & Comic - 05/16/2019 12:21 PM PSTLef t detailed message with results- also sent out letter SS [employer] Nothing further needed at this time. elephone Encounter - Modesta Jett, Tx dicrodriguez Music Engineer - 05/16/2019 12:20 PM PST----- Message from Cheryl Zee MD sent at 019 6:05 PM PST ----- Please advise her to increase vit D to 5000 IU daily for one month, after that take 2000 IU daily without missing pills. Thanks documented in this encounter Plan of [...] [place] | | | | | | [address] | | | | | | | | +--------+---------+ + + + | 07/25/ | Office | Cardiology | Renetta, | | | 2020 | Visit | | [address] | | | | | | [place], | | | | | | [place] [address] | | | | | | [phone] | | | | | | | [...]
--- OUTSIDE RECORDS SUMMARY | ~2020-01-04 | XMS | Encounter Summary ---
Demographics + + + | Address | [address] | | | [place] [address] | + + + | Home Phone [...] | Author | [facility] | | | and [place] [...] [place], | | | | | [place] [address] | | + + + + + | Ryan Vogt | ECON | Unknown | | + + + + + | Rob Vogt | ECON | Unknown | | + + + + + Care Team Providers + +------+ + | Care Oncology Radiation Physician Name | Role | Phone | + [...] Description | +--------+---------+ + + + | 08/26/ | Office | [facility] | Abrahan Samaniego MD | Upper respiratory | | 2018 | Visit | MEDICINE [address] | [address] [facility] | tract infection, | | | | [address] [place], | [place] | unspecified type | | | | [place] [address] | [address] | (Primary Dx); Other | | | | [phone] | | osteoporosis without | | | | | | current | | | | | | pathological | | | | | | fracture; MIROSLAVA | | | | | | SYNDROME; Chronic | | | | | | kidney disease, | | | | | | unspecified CKD | | | | | | stage; Hypokalemia | | | | | | due to loss of | | | | | | potassium | +--------+---------+ + + + Social [...] + + + | Blood Pressure | 122/76 | 08/26/2017 10:28 AM | | | | | PDT | | + + + + + | Pulse | 72 | 08/26/2017 10:28 AM | | | | | PDT | | + + + + + | Temperature | 36.2 C (97.1 F) | 08/26/2017 10:28 AM | | | | | PDT | | + + + + + | Respiratory Rate | 18 | 08/26/2017 10:28 AM | | | | | PDT | | + + + + + | Oxygen Saturation | 99% | 08/26/2017 10:28 AM | | | | | PDT | | + + + + + | Inhaled Oxygen | - | - | | | Concentration | | | | + + + + + | Weight | 66.7 kg (147 lb 0.8 | 08/26/2017 10:28 AM | | | | oz) | PDT | | + + + + + | Height | - | - | | + + + + + | Body Mass Index | 25.64 | 06/09/2017 1:32 PM | | | | | PST | | + + + + + documented in this encounter Patient Instructions Patient Instructions Abrahan Samaniego MD - 08/26/2017 10:45 AM PDTThere are simple things th at you can do to decrease your risk of falling and chances of getting injured when you fall . 1. Calcium supplement with Vitamin D . [...] Use night lights in your home 5. air intercept controller supervisor all throw rugs and secure power cords so that you will not trip on them. documented in this encounter Progress Notes Abrahan Samaniego MD - 08/26/2017 10:45 AM PDT Subjective: Patient ID: Oliva Vogt is a 67 y.o. female. Patient had a severe URI around 08/13/17. Was started on Levaquin and because of her panhypo pituitarism and adrenal insufficiency, increased her dose of prednisone temporarily. She im proved and decreased the dose of prednisone back to her baseline.She is still having a sligh t cough and thinks that it is more likely due to PND. She still doesn't have her energy back . She didn't miss work. No fever, shills, night sweats, N/V/D, chest pain, SOB, GELLER. She has also done a bone density scan on 08/12/17 as seen below. 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 Her left femoral neck T score was -2.4 and the lumbar spine was -2.3. Patient's medications, allergies, past medical, surgical, social and family histories were obtained and reviewed as appropriate. Social: She has a fair amount of stress at home with her who is on dialysis, has bi lateral BKA's. She also has a son who has had significant medical illness and issues with t obacco abuse and a history of alcohol abuse. He and his are currently living with her. ROS See above Objective:BP 122/76 | Pulse 72 | Temp 36.2 C (97.1 F) (Temporal) | Resp 18 | Wt 66. 7 kg (147 lb 0.8 oz) | SpO2 99% | BMI 25.64 kg/m Physical Exam GEN: No acute distress. HEENT:EOMI, OP normal. No exudate or thrush. Nares normal. No sinus tenderness NECK: No MICHAEL CHEST: Clear to auscultation. No wheezes, rales, rhonchi. Normal effort and movement CAR: Rhythm:regular Murmur:no Jese:no JVP:no Pulses:normal radial and carotid ABD: non-distended, non-tender. No hepatosplenomegaly EXT: No clubbing, cyanosis, or edema DEXA BONE DENSITY STUDY WO VERT FX ASSESSMENT 08/12/2017 4:40 PM HISTORY: postmenopausal. COMPARISON: None. PROTOCOL: Bone mineral density was calculated with dual absorption x-ray technique. FINDINGS: Bone mineral density for the left femoral neck is 0.583 g/cm2, corresponding to a T score of -2.4 and a Z score of -0.8. Bone mineral density for the lumbar spine measured from L1 to L4 is 0.793 g/cm2, corresponding to a T score of -2.3 and a Z score of -0.4. IMPRESSION - LEFT FEMORAL NECK: Fracture risk: Increased; WHO classification: Osteopenia. L1-L4 REGION OF THE LUMBAR SPINE: Fracture risk: Increased; WHO classification: Osteopenia. World Health Organization Classification Normal: T score at or above -1 SD Osteopenia: T score between -1 and -2.5 SD Osteoporosis: T score at or below -2.5 SD Dictated and Signed by: Yaakov Estrada MD Electronically signed: 08/13/2017 9:35 AM Assessment/Plan: 1. Upper respiratory tract infection, unspecified type She seems like she is over it. Her HEENT and pulmonary exam are normal. She did the right thing with taking the stress steroids. She is now back to baseline. 2. Other osteoporosis without current pathological fracture we talked extensively about o steoporosis, fall precautions, weightbearing exercises, balance programs. We also talked about vitamin D and calcium supplementation. It is likely that prednisone is playing a significant role in her bone loss. We talked about medication options for osteoporosis as well as the relative merits, risks, benefits, side effects. Depending on the results of her labs, she will start with alendronate 70 mg once weekly. Stef montalvo went over specifically how to take the medication. All questions were addressed and answered. Phosphorus Parathyroid Hormone, Intact 3. MIROSLAVA SYNDROME 4. Chronic kidney disease, unspecified CKD stage F/U renal panel. 5. Hypokalemia due to loss of potassium follow-up potassium More than 25 minutes spent face to [...] [place] | | | | | | [address] | | | | | | | | +--------+---------+ + + + | 07/25/ | Office | Cardiology | Renetta, | | | 2020 | Visit | | [facility] [address] | | | | | | [place], | | | | | | [place] [address] | | | | | | [phone] | | | | | | | | +--------+---------+ + + + | 09/03/ | Office | Endocrinology | Cheryl Zee MD | | | 2020 | Visit | | [address] [place] | | | | | | [address] [place] | | | | | | [id number] | | | | | | | | +--------+---------+ + + + documented as of this encounter Results Vitamin D, Deficiency Screen (25-Hydroxy) (08/26/2017 11:16 AM PDT) + +--------+ + + + | Component | Value | Ref Range | Performed | Pathologist | | | | | At | Signature | + +--------+ + + + | Vitamin D, | 25 (L) | 30 - 80 ng/mL | [facility] | | | 25 Hydroxy | | | [facility] | | [...] + | [facility] | [address] | [place] | [phone] | | [facility] | | [address] | | | - LABORATORY | | | | + + + + + Parathyroid Hormone, Intact (08/26/2017 11:16 AM PDT) + +---------+ + + + | Component | Value | Ref Range | Performed | Pathologist | | | | | At | Signature | + +---------+ + + + | PTH Intact | 113 (H) | 12 - 88 pg/mL | [facility] [...] [address] | [place] | [phone] | | [facility] | | [address] | | | - LABORATORY | | | | + + + + + Renal Function Panel (08/26/2017 11:16 AM PDT) + +---------+ + + + | Component | Value | Ref Range | Performed | Pathologist | | | | | At | Signature | + +---------+ + + + | Na | 144 | 136 - 149 | [facility] | | | | | mmol/L | [facility] | | | | | | MEDICAL | | | | | | CENTER - | | | | | | LABORATORY | | + +---------+ + + + | K | 3.9 | 3.5 - 5.1 | [facility] | | | | | mmol/L | [facility] | | | | | | MEDICAL | | | | | | CENTER - | | | | | | LABORATORY | | + +---------+ + + + | Cl | 109 | 98 - 109 mmol/L | [facility] | | | | | | [facility] | | | | | | MEDICAL | | | | | | CENTER - | | | | | | LABORATORY | | + +---------+ + + + | CO2 | 29 | 24 - 31 mmol/L | [facility] | | | | | | [facility] | | | | | | MEDICAL [...] +---------+ + + + | Glucose | 89 | 70 - 109 mg/dL | [facility] | | | | | | [facility] | | | | | | MEDICAL | | | | | | CENTER - | | | | | | LABORATORY | | + +---------+ + + + | BUN | 20 (H) | 7 - 18 mg/dL | [facility] | | | | | | [facility] | | | | | | MEDICAL | | | | | | CENTER - | | | | | | LABORATORY | | + +---------+ + + + | Creatinine | 1.01 [...] | | non- | | mL/min/1.73m2 | [facility] | | | [place] | | | MEDICAL | | | | | | CENTER - | | | | | | LABORATORY | | + +---------+ + + + | Calcium | 9.3 | 8.3 - 10.5 | [facility] | | | | | mg/dL | [facility] | | | | | | MEDICAL | | | | | | CENTER - | | | | | | LABORATORY | | + +---------+ + + + | Albumin | 3.8 | 3.2 - 5.0 g/dL | [facility] | | | | | | [facility] | | | | | | MEDICAL | | | | | | CENTER - | | | | | | LABORATORY | | + +---------+ + + + | Phosphorus | 2.3 (L) | 2.5 - 4.6 mg/dL | [facility] | | | | | | [facility] | | | | | | MEDICAL | | | | | | CENTER - | | | | | | LABORATORY | | + +---------+ + + + | BUN/Creatin | 19.8 | | [facility] | | | ine [place] | | | [facility] | | [...] [address] | [place] | [phone] | | [facility] | | [address] | | | - LABORATORY | | | | + + + + + documented in this encounter Visit Diagnoses + + | Diagnosis | + + | Upper respiratory tract infection, unspecified type - Primary | + + | Other osteoporosis without current pathological fracture | + + | MIROSLAVA SYNDROME Panhypopituitarism | + + | Chronic kidney disease, unspecified CKD stage | + + | Hypokalemia due to loss of potassium | + + documented in this encounter"
--- OUTSIDE RECORDS SUMMARY | ~2020-01-04 | XMS | Encounter Summary ---
Demographics + + + | Address | [address] | | | [place] [address] | + + + | Home Phone [...] | Author | [facility] | | | and [place] [...] [place], | | | | | [place] [address] | | + + + + + | Ryan Vogt | ECON | Unknown | | + + + + + | Rob Vogt | ECON | Unknown | | + + + + + Care Team Providers + +------+ + | Care Linoleum Tile Layer Name | Role | Phone | + +------+ + | Abrahan Samaniego MD | PCP | | + +------+ + Reason for Visit + +--------+ + | Reason | Onset | Comments | | | Date | | + +--------+ + | Medication Related | 02/10/ | | | | 2019 | | + +--------+ + Encounter Details +--------+--------+ + + + | Date | Type | Department | Care Team | Description | +--------+--------+ + + + | 02/10/ | Refill | [facility] | Cheryl Zee MD | Medication Related | | 2019 | | [place] | [address] [place] | | | | | ENDOCRINOLOGY [address] | [address] [place] | | | | | [address] [place] [address] | [address] | | | | | [place] | | | | | | [address] | | | | | | [phone] | | | +--------+--------+ + + + [...] this encounter Miscellaneous Notes Telephone Encounter - Yoko Shahid - 02/10/2019 2:36 PM PDTFormatting of this note mi ght be different from the original. Ok to leave detailed message:Yes Comments/Concerns: Specialty pharmacy needs the updated dosage, Patient informed them it ch anged at last office visit. Mychart: ACTIVATED PCP: Abrahan Samaniego MD Future Appointments: Future Appointments Date Time Provider Department Center 03/09/2019 13:30 Abrahan Samaniego MD [facility] 05/10/2019 13:10 Cheryl Zee MD [facility] None 07/25/2019 12:45 [facility] documented in this enco unter Plan of Treatment +--------+---------+ + + + | Date | Type | Specialty | Care Team | Description | +--------+---------+ + + + | 04/29/ | Office | Internal Medicine | Abrahan Samaniego MD | | 2019 | Visit | | [address] [facility] | | | | | | [place] | | | | | | [address] | | | | | | | | +--------+---------+ + + + | 07/25/ | Office | Cardiology | Renetta, | | | 2020 | Visit | | [facility] [address] | | | | | | [place], | | | | | | [place] [address] | | | | | | [phone] | | | | | | | | +--------+---------+ + + + | 09/03/ | Office | Endocrinology | Cheryl Zee MD | | | 2020 | Visit | | [address] | | | | | | [address] [place] | | | | | | [address] | | | | | | | | +--------+---------+ + + + documented as of this encounter Visit Diagnoses Not on filedocumented in this encounter"
--- OUTSIDE RECORDS SUMMARY | ~2020-01-04 | XMS | Encounter Summary ---
Demographics + + + | Address | [address] | | | [place] [address] | + + + | Home Phone | | + + + | Preferred Language | Unknown | + + + | Marital Status | | + + + | Latter-Day Affiliation | 1027 | + + + | Race | Unknown | + + + | Ethnic Group | Unknown | + + + Author + + + | Author | [facility] [...] [place], | | | | | [place] [address] | | + + + + + | Ryan Vogt | ECON | Unknown | | + + + + + | Rob Vogt | ECON | Unknown | | + + + + + Care Team Providers + +------+ + | Care Clinical Care Leader Name | Role | Phone | + [...] Rehabilitatio | [address] | [address] | [place] | | | | n | (ICD-9-CM) - | STRE[address] | [place], | | | | | Cervicalgia | [place], | [place] [address] | | | | | Procedures | [place] [address] | Phone: | | | | | pt pako | Phone: | [phone] | | | | | | [phone] | Fax: | | | | | | Fax: | [phone] | | | | | | [phone] | | +--------+ + + + + + Encounter Details +--------+---------+ + + + | Date | Type | Department | Care Team | Description | +--------+---------+ + + + | 07/24/ | Office | [facility] | Abrahan Samaniego MD | Cervicalgia (Primary | | 2015 | Visit | MED CTR THERAPY PT | [address] [facility] | Dx); Other | | | | OP [address] | [place] | congenital anomaly | | | | [place] | [address] | of spine; Impaired | | | | [address] | | mobility | | | | [phone] | Matthew Bedoya | | | | [...] encounter Progress Notes Matthew Bedoya, PT - 07/24/2014 3:20 PM PST [facility] PT OP [address] [place] [address] Physical Therapy Daily Treatment Note Date: 07/24/2014 Patient Information Patient Name: Oliva Vogt Date of : 1950 Age: 64 y.o. Encounter Diagnoses Code Name Primary? 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 Jabbing sensation at times with right rotation. Pain Assessment Pain Scale Used: NUMERIC Pain Rating Pre Assessment: 3 Location: right side of neck Objective: Manual Treatment: trigger point release to the right side upper traps, stretching to the sa me. Grades 2,3 unilateral joint mobs at right side cervical facets, manual cervical traction. Prone with "I"s and "T"s, 2x10. Cueing for focus on scapular stabilization. Prone with chin retraction for 10 reps, 10 second hold. Seated MWM for right rotation, followed with manual traction. Soft tissue mobilization to cervical paraspinals, upper traps in sitting. Assessment: Improved mobility and less pain with right rotation after the manual therapy. Plan: Manual therapy, strengthening. Electronically signed by: Matthew Bedoya, PT, 07/24/2014 16:04 Patient Name: Oliva Vogt/: 1950/ documented in thi s encounter Plan of Treatment +--------+---------+ + + + | Date | Type | Specialty | Care Team | Description | +--------+---------+ + + + | 04/29/ | Office | Internal Medicine | Abrahan Samaniego MD | | | 2019 | Visit | | [address] [place] [address] | | | | | | [place] | | | | | | [address] | | | | | | | | +--------+---------+ + + + | 07/25/ | Office | Cardiology | Renetta, | | | 2020 | Visit | | [facility] [address] | | | | | | [place] | | | | | | [place] [address] | | | | | | [phone] | | | | | | | | +--------+---------+ + + + | 09/03/ | Office | Endocrinology | Cheryl Zee MD | | | 2020 | Visit | | [address] | | | | | | [address] [place] | | | | | | [address] | | | | | | | | +--------+---------+ + + + documented as of this encounter Visit Diagnoses + + | Diagnosis | + + | Cervicalgia - Primary | + + | Other congenital anomaly of spine | + + | Impaired mobility Other ill-defined conditions | + + documented in this encounter
--- OUTSIDE RECORDS SUMMARY | ~2020-01-04 | XMS | Encounter Summary ---
Demographics + + + | Address | [address] | | | [place] [address] | + + + | Home Phone | | + + + | Preferred Language | Unknown | + + + | Marital Status | | + + + | Samaritan Affiliation | 1027 | + + + | Race | Unknown | + + + | Ethnic Group | Unknown | + + + Author + + + | Author | [facility] | [...] [place], | | | | | [place] [address] | | + + + + + | Ryan Vogt | ECON | Unknown | | + + + + + | Rob Vogt | ECON | Unknown | | + + + + + Care Team Providers + +------+ + | Care Portable Pinch Riveter Name | Role | Phone | + +------+ + | Abrahan Samaniego MD | PCP | | + +------+ + Reason for Visit +---------+--------+ + | Reason | Onset | Comments | | | Date | | +---------+--------+ + | Results | 07/24/ | | | | 2016 | | +---------+--------+ + Encounter Details +--------+ + + + + | Date | Type | Department | Care Team | Description | +--------+ + + + + | 07/24/ | Telephone | [facility] | Staci Yu | Results | | 2016 | | CARE [address] | Bro Sun MD | | | | | [place] | [address] | | | | | [address] | [place] | | | | | [phone] | [address] | | | | | | | [...] Encounter - Vale Hopkins Cert MA - 07/24/2016 11:26 AM PSTFormatting of this no te might be different from the original. Pt is here and would like results? Per Dr Yu pt was notified HCV Viral Load, log10 NOTDET Log IU/mL Not Detected HCV Viral Load NOTDET IU/mL See Comments Comments: Not Detected Reportable range HCV RNA 1.2 to 8.0 Log IU/mL (15 to 100,000,000 IU/mL). This assay was performed using the FDA approved Lyle PRECIOUS AmpliPrep/PRECIOUS TaqMan HCV Test, v2.0. The PRECIOUS AmpliPrep/PRECIOUS TaqMan HCV Test, v2.0 is not intended for use as a screening test for the presence of HCV in blood or blood products. Testing Performed: DEX, Richy WKati Khan Dr pt understood and was notified of the schedule for Body Fluid exposure which is 6 weeks. 3 ,6,12 months. Pt understood and was pleased. documented in this encounter Plan of Treatment +--------+---------+ + + + | Date | Type | Specialty | Care Team | Description | +--------+---------+ + + + | 04/29/ | Office | Internal Medicine | Abrahan Samaniego MD | | | 2019 | Visit | | [address] | | | | | | [place] | | | | | | [address] | | | | | | | | +--------+---------+ + + + | 07/25/ | Office | Cardiology | Renetta, | | | 2020 | Visit | | [facility] [address] | | | | | | [place], | | | | | | [place] [address] | | | | | | [phone] | | | | | | | | +--------+---------+ + + + | 09/03/ | Office | Endocrinology | Cheryl Zee MD | | | 2020 | Visit | | [address] | | | | | | [address] [place] | | | | | | [phone] | | | | | | | | +--------+---------+ + + + documented as of this encounter Visit Diagnoses Not on filedocumented in this encounter"
--- OUTSIDE RECORDS SUMMARY | ~2020-01-04 | XMS | Encounter Summary ---
Demographics + + + | Address | [address] | | | [place] [address] | + + + | Home Phone [...] | Author | [facility] [...] [address] | | | | | [address], | | | | | [place] [address] | | + + + + + | Ryan Vogt | ECON | Unknown | | + + + + + | Rob Vogt | ECON | Unknown | | + + + + + Care Team Providers + +------+ + | Care Javascript Programmer Name | Role | Phone | + +------+ + | Abrahan Samaniego MD | PCP | | + +------+ + Reason for Visit +---------+--------+ + | Reason | Onset | Comments | | | Date | | +---------+--------+ + | Results | 06/25/ | | | | 2017 | | +---------+--------+ + Encounter Details +--------+ + + + + | Date | Type | Department | Care Team | Description | +--------+ + + + + | 06/25/ | Telephone | [facility] [place] [facility] | Abrahan Samaniego MD | Results | | 2017 | | MEDICINE [address] | [address] [facility] | | | | | [place], | [place] | | | | | [place] [address] | [id number] | | | | | [phone] | | | +--------+ + + + [...] Telephone Encounter - Christina Wilson LPN - 06/25/2017 12:38 PM PSTPatient notified.Electr onically signed by Christina Wilson LPN at 06/25/2017 12:38 PM PSTTelephone Encounter - Abrahan Woodward MD - 06/25/2017 8:05 AM PSTLabs are all great except her K+ is slightly low. I josie casanova ordered her KCL to the pharmacy to take 1 per day. documented in this encounter Plan of Treatment +--------+---------+ + + + | Date | Type | Specialty | Care Team | Description | +--------+---------+ + + + | 04/29/ | Office | Internal Medicine | Abrahan Samaniego MD | | | 2019 | Visit | | [address] [place] [address] | | | | | | [place] | | | | | | [address] | | | | | | | | +--------+---------+ + + + | 07/25/ | Office | Cardiology | Renetta, | | | 2020 | Visit | | [facility] [address] | | | | | | [place] | | | | | | [place] [address] | | | | | | [phone] | | | | | | | | +--------+---------+ + + + | 09/03/ | Office | Endocrinology | Cheryl Zee MD | | | 2020 | Visit | | [address] | | | | | | [address] [place] | | | | | | [address] | | | | | | | | +--------+---------+ + + + documented as of this encounter Visit Diagnoses Not on filedocumented in this encounter"
--- OUTSIDE RECORDS SUMMARY | ~2020-01-04 | XMS | Encounter Summary ---
Demographics + + + | Address | [address] | | | [place] [address] | + + + | Home Phone | | + + + | Preferred Language | Unknown | + + + | Marital Status | | + + + | Mandaen Affiliation | 1027 | + + + | Race | Unknown | + + + | Ethnic Group | Unknown | + + + Author + + + | Author | [facility] | | | and [place] | + + + | Organization | [facility] | | | [...] [place], | | | | | [place] [address] | | + + + + + | Ryan Vogt | ECON | Unknown | | + + + + + | Rob Vogt | ECON | Unknown | | + + + + + Care Team Providers + +------+ + | Care Continuous Improvement Coordinator Name | Role | Phone | + +------+ + | Abrahan Samaniego MD | PCP | | + +------+ + Reason for Visit + + + | Reason | Comments | + + + | Immunizations | Flu and [id number] | + + + Encounter Details +--------+ + + + + | Date | Type | Department | Care Team | Description | +--------+ + + + + | 02/14/ | Clinical | [facility] | Abrahan Samaniego MD | Need for influenza | | 2015 | Support | MEDICINE [address] | [address] [place] [address] | vaccination (Primary | | | | [place], | [place] | Dx); Need for | | | | [place] [address] | [address] | pneumococcal | | | | [phone] | | vaccination; | | | | | | Preventative health | | | | | | care | +--------+ + + + + Social [...] documented as of this encounter Progress Notes Caty Napoles, Continuous Drier Operator - 02/14/2015 4:47 PM PDTPatient presents today for Flu an d [id number] vaccine and tolerated them well. document ed in this encounter Plan of Treatment +--------+---------+ + + + | Date | Type | Specialty | Care Team | Description | +--------+---------+ + + + | 04/29/ | Office | Internal Medicine | Abrahan Samaniego MD | | | 2019 | Visit | | [address] [facility] | | | | | | [place] | | | | | | [address] | | | | | | | | +--------+---------+ + + + | 07/25/ | Office | Cardiology | Renetta, | | | 2020 | Visit | | [facility] [address] | | | | | | [place] | | | | | | [place] [address] | | | | | | [phone] | | | | | | | [...] | inoculation against influenza | + + | Need for pneumococcal vaccination Need for prophylactic vaccination against | | streptococcus pneumoniae (pneumococcus) | + + | Preventative health care Routine general medical examination at a health care | | facility | + + documented in this encounter"
--- OUTSIDE RECORDS SUMMARY | ~2020-01-04 | XMS | Encounter Summary ---
Demographics + + + | Address | [address] | | | [place] [address] | + + + | Home Phone [...] Author | [facility] | [...] [place], | | | | | [place] [address] | | + + + + + | Ryan Vogt | ECON | Unknown | | + + + + + | Rob Vogt | ECON | Unknown | | + + + + + Care Team Providers + +------+ + | Care Poultry Slaughterer Name | Role | Phone | + +------+ + | Abrahan Samaniego MD | PCP | | + +------+ + Reason for Visit + + + | Reason | Comments | + + + | Therapy Discharge | | + + + | Therapy Daily [...] | Specialty | Physical | Diagnoses | dAen | [facility] | | | Services | Therapy / | Cervicalgia | Abrahan Cortez MD | Pt Op [address] | | | Required | Rehabilitatio | [address] | [address] | [place] | | | | n | (ICD-9-CM) - | STRE[address] | [place], | | | | | Cervicalgia | [place], | [place] [address] | | | | | Procedures | [place] [address] | Phone: | | | | | pt eval | Phone: | [phone] | | | | | | [phone] | Fax: | | | | | | Fax: | [phone] | | | | | | [phone] | | +--------+ + + + + + Encounter Details +--------+---------+ + + + | Date | Type | Department | Care Team | Description | +--------+---------+ + + + | 09/20/ | Office | [facility] | Abrahan Samaniego MD | Cervicalgia (Primary | | 2015 | Visit | MED CTR THERAPY PT | [address] [facility] | Dx); Impaired | | | | OP [address] [place] | [place] | mobility | | | | [place], [place] | [id number] | | | | | [address] | | | | | | [phone] | Matthew Bedoya | | | | [...] encounter Progress Notes Matthew Bedoya, PT - 09/20/2014 11:15 AM PDT [facility] TH[facility] PT OP [address] [place] [address] Physical Therapy Discharge Note Date: 09/20/2014 Patient Information Patient Name: Oliva Vogt Date of : 1950 Age: 64 y.o. Start of Care Date: 07/16/14 History Encounter Diagnoses Code Name Primary? 723.1 Cervicalgia Yes 799.89 Impaired mobility Date of Onset: 05/07/14 Referring Provider: Abrahan Samaniego MD Rehab Precautions Office Visit from 07/16/2014 in [facility] THER[facility] PT OP Rehab Precautions Precautions None Pain Assessment Pain Scale Used: NUMERIC Pain Rating Pre Assessment: 3 Location: right side neck DISCHARGE NOTE: SUBJECTIVE: Oliva Vogt has completed 7 therapy visits for treatment of her neck. Patient reports improved mobility, function and states that she is independent with her HEP. OBJECTIVE: Cervical ROM Initial Assessment Progress Note / Discharge Flexion: 32 pain at right 76 no pain Extension: 67 min pain 70, some at right Side Bend Left: 15 pain at right 31 some pain at right Side Bend Right: 24 pain at right 36 some pain at right Rotation Left: 58 mild pain at left 66 pain at right Rotation Right: 39 pain at right 63 pain at right Outcome Measure: Initial Assessment Progress Note / Discharge NDI: 22/100% (A score of 0% = No Functional Disability of Cervical Spine) 6 Outcome Measure: Neck Disability Index (NDI) Pain Intensity: 1 - The pain is very mild at the moment Personal Care (Washing, Dressing, etc.): 0 - I can look after myself normally without causi ng extra pain Liftin - I can lift heavy weights without extra pain Readin - I can read as much as I want to with no pain in my neck Headaches: 0 - I have no headaches at all Concentration: 0 - I can concentrate fully when I want to with no difficulty Work: 0 - I can do as much work as I want to Driving: I can drive my car as long as I want with slight pain in my neck Sleepin - I have no trouble sleeping Recreation: 1 - I am able to engage in all my recreation activities, with some pain in my n skyler Neck Disability Index Score: 3 Neck Disiability Index Percentage Score (Calculated): 6 Neck Disability Index Goal: 12 Neck Disability Index Goal Status: 6 ASSESSMENT: Oliva Vogt has successfully completed her POC for treatment of her neck. Most all treatment goals have been met and patient demonstrates independence with her HEP for long t erm symptom management. UPDATED THERAPY GOALS: PT Assessment Goals Neck Disability Index Goal: 12 Neck Disability Index Goal Status: 6 OP PT Goals Goal 1: Decrease pain from 5/10 to 2/10 at worst to improve ability to complete turning hea d, driving. (6 weeks) Goal 1 Status: improved,high of 3/10 Goal 2: Independent with home exercise program for nursing home spine health and prevention of recurrence of symptoms or chronicity. (6 weeks) Goal 2 Status: going well Goal 3: Decrease sleep disturbance to sleep through the night without waking. (6 weeks) Goal 3 Status: met Goal 4: Improve cervical ROM to no pain with reading. (6 weeks) Goal 4 Status: met Goal 5: Reduce NDI score by 10% points or greater indicating improved function and ability to complete ADLs. (6 weeks) Goal 5 Status: met, currently at 6 Today's Treatment Start Time: 1105 Stop time: 1145 Duration: 40 minutes Timed Treatment Codes: 40 minutes # of PT Visits: 7 Objective: Review of exercises for home. Instructed patient with improved technique with exercises in prone. Added "Y" exercise. Added yellow tubing for scapular retraction exercise. Review of chin retraction. upper traps stretch on the right. Plan: discharge to home program Certification From: 07/16/14 Certification To: 10/14/14 Electronically signed by: Matthew Bedoya, PT, 09/20/2014 11:49 Patient Name: Oliva Vogt/: 1950/ documented in thi s encounter Plan of Treatment +--------+---------+ + + + | Date | Type | Specialty | Care Team | Description | +--------+---------+ + + + | 04/29/ | Office | Internal Medicine | Abrahan Samaniego MD | | | 2019 | Visit | | [address] [place] [address] | | | | | | [place] | | | | | | [address] | | | | | | | | +--------+---------+ + + + | 07/25/ | Office | Cardiology | Renetta | | | 2020 | Visit | | [facility] [address] | | | | | | [place] | | | | | | [place] [address] | | | | | | [phone] | | | | | | | | +--------+---------+ + + + | 09/03/ | Office | Endocrinology | Cheryl Zee MD | | | 2020 | Visit | | [address] | | | | | | [address] [place] | | | | | | [address] | | | | | | | | +--------+---------+ + + + documented as of this encounter Visit Diagnoses + + | Diagnosis | + + | Cervicalgia - Primary | + + | Impaired mobility Other ill-defined conditions | + + documented in this encounter
--- OUTSIDE RECORDS SUMMARY | ~2020-01-04 | XMS | Encounter Summary ---
Demographics + + + | Address | [address] | | | [place] [address] | + + + | Home Phone [...] | Author | [facility] | | | and [place] [...] [place], | | | | | [place] [address] | | + + + + + | Ryan Vogt | ECON | Unknown | | + + + + + | Rob Vogt | ECON | Unknown | | + + + + + Care Team Providers + +------+ + | Care General Labor Name | Role | Phone | + [...] | | | level | [address] | [place], [place] | | | | | Procedures | [place], [place] | [address] | | | | | [place] Bone Scan | [address] | Phone: | | | | | Whole Body | Phone: | [phone] | | | | | [place] Bone | [phone] | Fax: | | | | | Marrow Whole | Fax: | [phone] | | | | | Body NM | [phone] | | | | | | Bone Scan WB | | | | | | | W SPECT | | | +--------+--------+ + + + + Encounter Details +--------+ + + + + | Date | Type | Department | Care Team | Description | +--------+ + + + + | 08/28/ | Hospital | [facility] | Cheryl Zee MD | High alkaline | | 2020 | Encounter | [facility] | [address] [place] | phosphatase level | | | | MEDICINE [address] | [address] [place], [place] | | | | | [address] | [id number] | | | | | [place], [place] | | | | | | [address] | | | | | | [phone] | | | +--------+ + + + [...] as of this encounter Miscellaneous Notes Result Rosanne - Cheryl Zee MD - 08/29/2019 10:00 AM PDTLaura, I reviewed your test result: Bone scan shows arthritis changes, no concerning lesions are seen. Please get labs , we will repeat alkaline phosphatase in few months, before visit with me. Let me know if questions Bets regards. MC doparrish devineed in this encounter Plan of Treatment +--------+---------+ + + + | Date | Type | Specialty | Care Team | Description | +--------+---------+ + + + | 04/29/ | Office | Internal Medicine | Abrahan Samaniego MD | | | 2019 | Visit | | [address] [place] [address] | | | | | | [place] | | | | | | [address] | | | | | | | | +--------+---------+ + + + | 07/25/ | Office | Cardiology | Renetta, | | | 2020 | Visit | | [address] | | | | | | [place] | | | | | | [place] [address] | | | | | | [phone] | | | | | | | [...] the manubrium and body of the sternum. Jwxe-lo-qkyrcteb | | | uptake seen surrounding the right knee and ankle. Otherwise mild | | | uptake seen involving the extremity joints bilaterally, likely | | | degenerative. Physiologic uptake seen in the kidneys, with | | | excretion into the urinary bladder. | | + + + + + | Procedure Note | + + | Vishnu, Rad Results In 08/30/2019 9:14 AM PDT | | NM [...] and body of the | | sternum. Uaqu-yj-vijdwenw uptake seen surrounding the right knee and [...] | | | | | Signed by: HabJavier giullen Amit | | Sign Date/Time: 08/30/2019 9:11 [...] level | + + documented in this encounter Administered Medications + +--------+ + +------+------+ | Medication Order | MAR | Action | Dose | Rate | Site | | | Action | Date | | | | + +--------+ + +------+------+ | technetium TC-99M medronate | Given | 08/29/19 | 25.1 | | | | (MDP) injection 25 millicurie 25 | | 20 10:08 | millicur | | | | millicurie, Intravenous, ONCE | | AM PDT | ies | | | | PRN, Other, Starting 08/29/19 | | | | | | | at 1008, For 1 dose, Nuclear | | | | | | | Medicine | | | | | | + +--------+ + +------+------+ +---+---+ | | | +---+---+ documented in this encounter"
--- OUTSIDE RECORDS SUMMARY | ~2020-01-04 | XMS | Encounter Summary ---
Demographics + + + | Address | [address] | | | [place] [address] | + + + | Home Phone | | + + + | Preferred Language | Unknown | + + + | Marital Status | | + + + | Mu-Ism Affiliation | 1027 | + + + | Race | Unknown | + + + | Ethnic Group | Unknown | + + + Author + + + | Author | [facility] | | | and [place] | + + + | Organization | [facility] | | [...] [place], | | | | | [place] [address] | | + + + + + | Ryan Vogt | ECON | Unknown | | + + + + + | Rob Vogt | ECON | Unknown | | + + + + + Care Team Providers + +------+ + | Care Industrial Services Worker Name | Role | Phone | + +------+ + | Abrahan Samaniego MD | PCP | | + +------+ + Encounter Details +--------+ + + + + | Date | Type | Department | Care Team | Description | +--------+ + + + + | 05/19/ | Hospital | [facility] | Abrahan Samaniego MD | | | 2010 | Encounter | MED CTR XRAY [address] | [address] [facility] | | | | | [place] | [place] | | | | | [place] [address] | [address] | | | | | [phone] | | | +--------+ + + + [...] | 2019 | Visit | | [address] [facility] | | | | | | [place] | | | | | | [address] | | | | | | | | +--------+---------+ + + + | 07/25/ | Office | Cardiology | [place], | | | 2020 | Visit | | [address] | | | | | | [place] | | | | | | [place] [address] | | | | | | [phone] | | | | | | | [...] + | CT HEAD WO CONTRAST | | 05/19/2011 | | Results for this | | | | 10:45 AM | | procedure are in the | | | | PST | | results section. | + +--------+ + + + documented in this encounter Results CT Head wo Contrast (05/19/2011 10:45 AM PST) + + | Specimen | + + | | + + + + + | Narrative | Performed At | + + + | [facility] Diagnostic Imaging Department | [place] | | [address] [facility] | [facility] | | HEAD CT WITHOUT CONTRAST | DIAG IMG | | 05/19/2011 CLINICAL HISTORY: RIGHT FRONTAL BONE LESION ON MR, | | | WITH INCREASED UPTAKE ON NUCLEAR MEDICINE BONE SCANNING. | | | FINDINGS: In the right frontal region, there is a poorly defined | | | zone of osteosclerosis corresponding to the abnormality seen on MR | | | and nuclear medicine scans. There is a wide zone of transition. | | | There is no periostitis. There is no obvious destruction of the | | | inner or outer table. The osteosclerotic zone has an appearance of | | | an aggressive lesion. This could be histologically benign such as | | | Paget's disease of bone or could represent an isolated osteoblastic | | | metastatic lesion (no other systemic lesions identified on whole body | | | bone scanning). No other calvarial lesions are clearly seen. | | | The remainder of the calvarium and skull base is within normal | | | limits. There is incidental fluid level within the sphenoid sinus. | | | Images of the brain are unremarkable. IMPRESSION: 1. | | | ZONE OF OSTEOSCLEROSIS WITH WIDE ZONE OF TRANSITION, INVOLVING THE | | | RIGHT FRONTAL BONE AND CORRESPONDING TO THE MR AND NUCLEAR MEDICINE | | | LESIONS. DIFFERENTIAL INCLUDES PAGET'S DISEASE OF BONE OR LESS | | | LIKELY, AN ISOLATED OSTEOBLASTIC METASTATIC LESION. | | | RECOMMENDATION: SHORT INTERVAL FOLLOWUP NONCONTRAST CT IS SUGGESTED. | | | Dictated Date/Time: 05/19/2011 16:49 Transcribed Date/Time: | | | 05/19/2011 19:48 Business Operations Consultant: <Electronically Signed | | | by Juan Youssef MD> 05/20/11 0854 | | + + + + + | Procedure Note | + + | Vishnu, Rad Conversion - 07/14/2013 4:23 PM [facility] | | Diagnostic Imaging Department | | [address] [facility] [place] | | | | | | | | HEAD CT WITHOUT CONTRAST 05/19/2011 | | | | CLINICAL HISTORY: RIGHT FRONTAL BONE LESION ON MR, WITH INCREASED UPTAKE ON | | NUCLEAR MEDICINE BONE SCANNING. | | | | FINDINGS: In the right frontal region, there is a poorly defined zone of | | osteosclerosis corresponding to the abnormality seen on MR and nuclear medicine | | scans. There is a wide zone of transition. There is no periostitis. There is | | no obvious destruction of the inner or outer table. The osteosclerotic zone | | has an appearance of an aggressive lesion. This could be histologically benign | | such as Paget's disease of bone or could represent an isolated osteoblastic | | metastatic lesion (no other systemic lesions identified on whole body bone | | scanning). No other calvarial lesions are clearly seen. The remainder of the | | calvarium and skull base is within normal limits. There is incidental fluid | | level within the sphenoid sinus. | | | | Images of the brain are unremarkable. | | | | IMPRESSION: | | 1. ZONE OF OSTEOSCLEROSIS WITH WIDE ZONE OF TRANSITION, INVOLVING THE RIGHT | | FRONTAL BONE AND CORRESPONDING TO THE MR AND NUCLEAR MEDICINE LESIONS. | | DIFFERENTIAL INCLUDES PAGET'S DISEASE OF BONE OR LESS LIKELY, AN ISOLATED | | OSTEOBLASTIC METASTATIC LESION. | | | | RECOMMENDATION: SHORT INTERVAL FOLLOWUP NONCONTRAST CT IS SUGGESTED. | | | | Dictated Date/Time: 05/19/2011 16:49 | | Transcribed Date/Time: 05/19/2011 19:48 | | Business Operations Consultant: | | <Electronically Signed by Juan Youssef MD> 05/20/11 0854 | + + + +---------+ + + | Performing | Address | City/State/Zipcode | Phone Number | | Organization | | | | + +---------+ + + | [place] | | | | | [facility] | | | | + +---------+ + + documented in this encounter Visit Diagnoses Not on filedocumented in this encounter"
--- OUTSIDE RECORDS SUMMARY | ~2020-01-04 | XMS | Encounter Summary ---
Demographics + + + | Address | [address] | | | [place] [address] | + + + | Home Phone [...] + | Author | [facility] | | | and [place] [...] [place], | | | | | [place] [address] | | + + + + + | Ryan Vogt | ECON | Unknown | | + + + + + | Rob Vogt | ECON | Unknown | | + + + + + Care Team Providers + +------+ + | Care Cash On Delivery Clerk Name | Role | Phone | [...] | Abrahan Cortez MD | [address] [place] [address] | | | | | unspecified | [address] | [place], | | | | | type | STREET | [place] | | | | | Procedures | [place], | [address] | | | | | [place] | [place] [address] | Phone: | | | | | Complete | Phone: | [phone] | | | | | | [phone] | Fax: | | | | | | Fax: | [phone] | | | | | | [phone] | | +--------+--------+ + + + + [...] | Abrahan Cortez MD | [address] | | | | | unspecified | [address] | [place], | | | | | type | STREET | [place] | | | | | Procedures | [place], | [address] | | | | | [place] | [place] [address] | Phone: | | | | | Complete | Phone: | [phone] | | | | | | [phone] | Fax: | | | | | | Fax: | [phone] | | | | | | [phone] | | +--------+--------+ + + + + Encounter Details +--------+ + + + + | Date | Type | Department | Care Team | Description | +--------+ + + + + | 12/20/ | Hospital | [facility] | Abrahan Samaniego MD | Edema, unspecified | | 2019 | Encounter | MED CTR ECHO [address] | [address] [facility] | type | | | | [place] | [place], [place] | | | | | [place] [address] | [address] | | | | | [phone] | | | +--------+ + + + [...] | | | | Angina at rest ([facility]) | | | | | | [...] [place] | | | | | | [address] | | | | | | | | +--------+---------+ + + + | 07/25/ | Office | Cardiology | Renetta, | | | 2020 | Visit | | [facility] [address] | | | | | | [place] | | | | | | [place] [address] | | | | | | [phone] | | | | | | | | +--------+---------+ + + + | 09/03/ | Office | Endocrinology | Cheryl Zee MD | | | 2020 | Visit | | [address] | | | | | | [address] [place] | | | | | | [id number] | | | | | | | | +--------+---------+ + + + documented as of this encounter Procedures + +--------+ + + + | Procedure Name | Priori | Date/Time | Associated Diagnosis | Comments | | | ty | | | | + +--------+ + + + | ECHO COMPLETE | Routin | 12/20/2018 | Edema, unspecified | Results for this | | | e | 2:44 PM | type | procedure are in the | | | | PDT | | results section. 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 | | | Stress It Applications Analyst | | | Procedure Type of Study [...] | cm PW Diastolic: 0.93 cm EF Agmfeueop84% EF Calculated: 62% Right | | | [...] Diastolic: 0.93 cm | | | EF Opdranwnw94% | | | EF Calculated: 62% | [...] + | Cyrus Mares Results In - 12/20/2018 5:55 PM PDT Transthoracic Echocardiography Report | | (TTE) Demographics Patient Name CARMEN DUNN Room Number RENETTA | | Patient Number [id number] Date of Study 12/20/2018 Visit Number | | [id number] Referring Physician CHUYITA Cortez | | Number Date of 1950 [address] Manager CONCHA ABRAHAN Age | | 68 year(s) 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
--- OUTSIDE RECORDS SUMMARY | ~2020-01-04 | XMS | Encounter Summary ---
Demographics + + + | Address | [address] | | | [place] [address] | + + + | Home Phone [...] | [facility] | [...] [place], | | | | | [place] [address] | | + + + + + | Ryan Vogt | ECON | Unknown | | + + + + + | Rob Vogt | ECON | Unknown | | + + + + + Care Team Providers + +------+ + | Care Grease Man Name | Role | Phone | + +------+ + | Abrahan Samaniego MD | PCP | | + +------+ + Reason for Visit + + + | Reason | Comments | + + + | Shoulder Injury | Left | + + + Encounter Details +--------+---------+ + + + | Date | Type | Department | Care Team | Description | +--------+---------+ + + + | 12/01/ | Office | [facility] | Staci Yu | Left shoulder strain | | 2012 | Visit | [facility] | Bro Sun MD | - resolved (Primary | | | | [place] [address] | [address] | Dx); Civilian | | | | [address] [place] | [place], [place] | activity done for | | | | [place] | [address] | income or pay; Place | | | | [address] | | of occurrence, | | | | [phone] | | industrial places | | | | | | and premises | +--------+---------+ + + + Social History [...] + + + | Blood Pressure | 137/63 | 12/01/2012 1:08 PM | | | | | PDT | | + + + + + | Pulse | 70 | 12/01/2012 1:08 PM | | | | | PDT | | + + + + + | Temperature | 36.6 C (97.9 F) | 12/01/2012 1:08 PM | | | | | PDT | | + + + + + | Respiratory Rate | 18 | 12/01/2012 1:08 PM | | | | | PDT | | + + + + + | Oxygen Saturation | - | - | | + + + + + | Inhaled Oxygen | - | - | | | Concentration | | | | + + + + + | Weight | 75.8 kg (167 lb) | 12/01/2012 1:08 PM | | | | | PDT | | + + + + + | Height | 162.6 cm (5' 4") | 12/01/2012 1:08 PM | | | | | PDT | | + + + + + | Body Mass Index | 28.67 | 12/01/2012 1:08 PM | | | | | PDT | | + + + + + documented in this encounter Patient Instructions Patient Instructions Staci Yu Jr., MD - 12/01/2012 1:27 PM PDTReturn as bryant ded documented in this encounter Progress Notes Staci Yu Jr., MD - 12/01/2012 1:12 PM PDTMT[facility] [address] [place] [id number] FAX: [phone] OFFICE VISIT CLAIM NUMBER: [id number] DATE OF INJURY: 01/06/2012 EMPLOYER: [employer] GUARANTOR: Mario Serrano Oliva Vogt returns for followup appointment on her left shoulder strain. She states she is doing well and having no symptoms at this time. There is no tingling or weakness and ra nge of motion of her shoulder is unimpaired. They have made permanent changes in her work e nvironment with moving the files to a lower level and limiting the weight of the files lifte d to the place where she is able to do her work without any exacerbation of her symptoms and any difficulty. These are permanent changes and she sees no problems with her job that are worrisome. Physical exam: No distress Left shoulder: Good range of motion without any pain, nontender, neck has good range of mot ion without production of any symptoms, C5-T1 motor and sensory are intact, reflexes are nor mal, Diagnosis: Shoulder strain resolved Plan: Closure of claim/maximal medical improvement achieved/no permanent impairmentElectron ically signed by Staci Yu Jr., MD at 12/01/2012 1:29 PM PDTdocumented in this encounter Miscellaneous Notes Plan of Care - ONBASE SCAN [facility] - 12/27/2012 12:00 AM PDT lan of Care - ONBASE SCAN [facility] - 12/01/2012 12:00 AM PDTElect ronically signed by Toro Morris at 12/27/2012 4:02 PM PDTdocumented in this encounter Plan of Treatment +--------+---------+ + + + | Date | Type | Specialty | Care Team | Description | +--------+---------+ + + + | 04/29/ | Office | Internal Medicine | Abrahan Samaniego MD | | | 2019 | Visit | | [address] [place] [address] | | | | | | [place] | | | | | | [id number] | | | | | | | | +--------+---------+ + + + | 07/25/ | Office | Cardiology | Renetta, | | | 2020 | Visit | | Kimberly, SPARERIBS TRIMMER [address] | | | | | | [place], | | | | | | [place] [address] | | | | | | [phone] | | | | | | | | +--------+---------+ + + + | 09/03/ | Office | Endocrinology | Cheryl Zee MD | | | 2020 | Visit | | [address] | | | | | | [address] [place] | | | | | | [phone] | | | | | | | | +--------+---------+ + + + documented as of this encounter Visit Diagnoses + + | Diagnosis | + + | Left shoulder strain - resolved - Primary Sprain and strain of unspecified site of | | shoulder and upper arm | + + | Civilian activity done for income or pay | + + | Place of occurrence, industrial places and premises | + + documented in this encounter
--- OUTSIDE RECORDS SUMMARY | ~2020-01-04 | XMS | Encounter Summary ---
Demographics + + + | Address | [address] | | | [place] [address] | + + + | Home Phone [...] | Author | [facility] [place] | | | and [...] [place], | | | | | [place] [address] | | + + + + + | Ryan Vogt | ECON | Unknown | | + + + + + | Rob Vogt | ECON | Unknown | | + + + + + Care Team Providers + +------+ + | Care Kier Boiler Name | Role | Phone | + +------+ + | Abrahan Samaniego MD | PCP | | + +------+ + Encounter Details +--------+ + + + + | Date | Type | Department | Care Team | Description | +--------+ + + + + | 10/15/ | Orders Only | [facility] | Abrahan Samaniego MD | Hypothyroidism, | | 2015 | | [address] | [address] [place] [address] | unspecified type | | | | [address] [place], | [place] | | | | | [place] [address] | [address] | | | | | [phone] | | | +--------+ + + + [...] | | | | | | [place] [address] | | | | | | [phone] | | | | | | | | +--------+---------+ + + + | 09/03/ | Office | Endocrinology | Cheryl Zee MD | | | 2020 | Visit | | [address] | | | | | | [address] [place] | | | | | | [phone] | | | | | | | | +--------+---------+ + + + documented as of this encounter Visit Diagnoses + + | Diagnosis | + + | Hypothyroidism, unspecified type | + + documented in this encounter"
--- OUTSIDE RECORDS SUMMARY | ~2020-01-04 | XMS | Encounter Summary ---
Demographics + + + | Address | [address] | | | [place] [address] | + + + | Home Phone | | + + + | Preferred Language | Unknown | + + + | Marital Status | | + + + | Rastafarian Affiliation | LDS | + + + | Race | White | + + + | Ethnic Group | Not or | + + + Author + + + | Author | [facility] | + + + | Organization | [facility] | + + + | Address | [...] Team Providers + +------+ + | Care Asphalt Still Operator Name | Role | Phone | + +------+ + | Abrahan Samaniego MD | PCP | | + +------+ + Encounter Details +--------+ + + + + | Date | Type | Department | Care Team | Description | +--------+ + + + + | 08/13/ | Anesthesia | Preoperative | Margo Luevano MA | | | 2011 | Event | [facility] at | [address] | | | | | [facility] 4th Floor [address] [place], | | | | | [place] | [place] [address] | | | | | Mailcode: CH4S | | | | | | [facility] | | | | | | and Healing, | | | | | | Building 1,4th Floor | | | | | | [place], [place] | | | | | | [address] | | | | | | [phone] | | | +--------+ + + + + Anesthesia Record + + + + + | Procedure Name | Responsible | Anesthesia Start | Anesthesia Stop Time | | | Anesthesiologist | Time | | + + + + + | pre op | | | | + + + + + + + | No events on file. | + + +------+ | Meds | +------+ + + + No medications | on file. | + + + + + | No agents on file. | + + + + | No blood administrations on file. | + + + + | No LDAs on file. | + + documented in this encounter Social [...] as of this encounter Plan of Treatment Not on filedocumented as of this encounter Visit Diagnoses Not on filedocumented in this encounter"
--- OUTSIDE RECORDS SUMMARY | ~2020-01-04 | XMS | Encounter Summary ---
Demographics + + + | Address | [address] | | | [place] [address] | + + + | Home Phone [...] Author | [facility] [place] | | | and [...] [place], | | | | | [place] [address] | | + + + + + | Ryan Vogt | ECON | Unknown | | + + + + + | Rob Vogt | ECON | Unknown | | + + + + + Care Team Providers + +------+ + | Care Spiral Gear Generator Name | Role | Phone | + +------+ + | Abrahan Samaniego MD | PCP | | + +------+ + Encounter Details +--------+ + + + + | Date | Type | Department | Care Team | Description | +--------+ + + + + | 08/29/ | Orders Only | [facility] | Cheryl Zee MD | Hypopituitarism | | 2020 | | [place] | [address] [place] | ([facility]) (Primary Dx); | | | | ENDOCRINOLOGY [address] | [address] [place], [place] | Stage 3 chronic | | | | [address] | [address] | kidney disease | | | | [place], [place] | | ([facility]); High alkaline | | | | [address] | | phosphatase level | | | | [phone] | | | +--------+ + + + [...] | | | | | | [place] [address] | | | | | | [phone] | | | | | | | | +--------+---------+ + + + | 03/30/ | Office | Endocrinology | Cheryl Zee MD | | | 2020 | Visit | | [address] [facility] [address] | | | | | | [address] [place] | | | | | | [phone] | | | | | | | | +--------+---------+ + + + documented as of this encounter Results Insulin-Like Growth Factor 1 (11/20/2019 3:31 PM [...] Shawn Bowman, | REFERENCE LAB | | [place], [place] [id number] Manager Chinese: Sheron Vera MD, Phone: | [place] | | [phone] | | + + + + + + + + | Performing | Address | City/State/Zipcode | Phone Number | | Organization | | | | + + + + + | REFERENCE LAB | [address] | [place], [place] | [phone] | | [facility] | [address] | [address] | | + + + + + [...] [address] | [place] | [phone] | | [facility] | | [address] | | | - LABORATORY | | | | + + + + + Phosphorus (11/20/2019 3:31 PM PDT) + +-------+ + + + | Component | Value | Ref Range | Performed | Pathologist | | | | | At | Signature | + +-------+ + + + | Phosphorus | 3.7 | 2.4 - 5.1 mg/dL | [facility] | | | | | | ST. [...] + | [facility] | [address] | [place] | [phone] | | [facility] | | [address] | | | - LABORATORY | | [...] in | 19 - 88 pg/mL | [facility] | | | | use as of August 03 | | [facility] | | | | 2018. Check reference [...] [address] | [place] | [phone] | | [facility] | | [address] | | | - LABORATORY | | | | + + + + + Comprehensive Metabolic Panel (11/20/2019 3:31 PM PDT) + + + [...] + + + + | Cl | 108 (H) | 98 - 107 mmol/L | [...] + + + | Glucose | 108 (H) | 60 - 106 mg/dL | [facility] | | | | | | [facility] | | | | | | [facility]ICAL | | | | | | CENTER - | | | | | | LABORATORY | | + + + + + + | BUN | 23 | 9 - 23 mg/dL | [facility] | | | | | | [facility] | | | | | | [...] | non- | FILTRATION | mL/min/1.73m2 | [facility] | | | Lao | RATE,ESTIMATED | | MEDICAL | | | | mL/min/1.33y3Gxxc than | | CENTER - | | [...] + + + + | Calcium | 10.0 | 8.7 - 10.4 | [facility] | | | | | mg/dL | [facility] | | | | | | [facility]ICAL | | | | | | CENTER - | | | | | | LABORATORY | | + + + + + + | Albumin | 4.1 | 3.2 - 4.8 g/dL | [facility] | | | | | | [facility] | | | | | | MEDICAL | | | | | | CENTER - | | | | | | LABORATORY | | + + + + + + | Bilirubin | 0.3 | 0.3 - 1.2 mg/dL | [facility] [...] + + | AST | 18 | 0 - 34 U/L | [facility] | | | | | | [facility] | | | | | | MEDICAL | | | | | | CENTER - | | | | | | LABORATORY | | + + + + + + | ALT | 18 | 10 - 49 U/L | [facility] | | | | | | [facility] | | | | | | MEDICAL | | | | | | CENTER - | | | | | | LABORATORY | | + + + + + + | Alkaline | 144 (H) | 46 - 116 U/L | [...] + + + + | BUN/Creatin | 27.1 | | [facility] | | | ine [...] + | [facility] | [address] | [place] | [phone] | | [facility] | | [address] | | | - LABORATORY | | | | + + + + + T4, Free (11/20/2019 3:31 PM PDT) + +-------+ + + + | Component | Value | Ref Range | Performed | Pathologist | | | | | At | Signature | + +-------+ + + + | FT4 | 1.4 | 0.9 - 1.8 ng/dL | [facility] [...] ST. | [address] | [place] | [phone] | | [facility] | | [address] | | | - LABORATORY | | | | + + + + + documented in this encounter Visit Diagnoses + + | Diagnosis | + + | Hypopituitarism (HCC) - Primary Panhypopituitarism | + + | Stage 3 chronic kidney disease (HCC) | + + | High alkaline phosphatase level | + + documented in this encounter"
--- OUTSIDE RECORDS SUMMARY | ~2020-01-04 | XMS | Encounter Summary ---
Demographics + + + | Address | [address] | | | [place] [address] | + + + | Home Phone [...] Author | [facility] [place] | [...] [place], | | | | | [place] [address] | | + + + + + | Ryan Vogt | ECON | Unknown | | + + + + + | Rob Vogt | ECON | Unknown | | + + + + + Care Team Providers + +------+ + | Care Commuter Pilot Name | Role | Phone | + +------+ + PCP | Unavailable | + +------+ + Encounter Details +--------+ + + + + | Date | Type | Department | Care Team | Description | +--------+ + + + + | 12/03/ | Hospital | [facility] | Shaji Thornton MD | | | 2006 | Encounter | MED CTR GENERIC OP | [address], [place] | | | | | CONV DEPT [address] | [address] [place], [place] | | | | | [place], | [address] | | | | | [place] [address] | | | | | | [phone] | | | +--------+ + + + [...] [place] | | | | | | [address] | | | | | | | | +--------+---------+ + + + | 07/25/ | Office | Cardiology | Renetta, | | | 2020 | Visit | | [facility] [address] | | | | | | [place] | | | | | | [place] [address] | | | | | | [phone] | | | | | | | | +--------+---------+ + + + | 09/03/ | Office | Endocrinology | Cheryl Zee MD | | | 2020 | Visit | | [address] | | | | | | [address] [place] | | | | | | [address] | | | | | | | | +--------+---------+ + + + documented as of this encounter Visit Diagnoses Not on filedocumented in this encounter"
--- OUTSIDE RECORDS SUMMARY | ~2020-01-04 | XMS | Encounter Summary ---
Demographics + + + | Address | [address] | | | [place] [address] | + + + | Home Phone | | + + + | Preferred Language | Unknown | + + + | Marital Status | | + + + | Samaritan Affiliation | 1027 | + + + | Race | Unknown | + + + | Ethnic Group | Unknown | + + + Author + + + | Author | [facility] [place] | | | and [place] | + + + | Organization | [facility] [place] | | [...] [place], | | | | | [place] [address] | | + + + + + | Ryan Vogt | ECON | Unknown | | + + + + + | Rob Vogt | ECON | Unknown | | + + + + + Care Team Providers + +------+ + | Care Machine Shorthand Teacher Name | Role | Phone | + +------+ + | Abrahan Samaniego MD | PCP | | + +------+ + Reason for Visit + + + | Reason | Comments | + + + | Finger Problem | stiff fingers/right hand | + + + Encounter Details +--------+---------+ + + + | Date | Type | Department | Care Team | Description | +--------+---------+ + + + | 05/27/ | Office | [facility] | Abrahan Samaniego MD | Caregiver stress | | 2017 | Visit | [address] | [address] [place] [address] | (Primary Dx); | | | | [place], | [place] | Postmenopausal; | | | | [place] [address] | [address] | Itchy skin | | | | [phone] | | | +--------+---------+ + + + [...] + + + | Blood Pressure | 128/70 | 05/27/2017 9:01 AM | | | | | PST | | + + + + + | Pulse | 70 | 05/27/2017 9:01 AM | | | | | PST | | + + + + + | Temperature | 36.2 C (97.1 F) | 05/27/2017 9:01 AM | | | | | PST | | + + + + + | Respiratory Rate | 16 | 05/27/2017 9:01 AM | | | | | PST | | + + + + + | Oxygen Saturation | 99% | 05/27/2017 9:01 AM | | | | | PST | | + + + + + | Inhaled Oxygen | - | - | | | Concentration | | | | + + + + + | Weight | 67.5 kg (148 lb 13 | 05/27/2017 9:01 AM | | | | oz) | PST | | + + + + + | Height | - | - | | + + + + + | Body Mass Index | 25.95 | 05/26/2017 2:17 PM | | | | | PST | | + + + + + documented in this encounter Progress Notes Abrahan Samaniego MD - 05/27/2017 9:00 AM PST Subjective: Patient ID: Oliva Vogt is a 67 y.o. female. Oliva's hand is doing better. She was scheduled for it but she was seen in Ortho yesterday and they took care of it. She wonders if she needs a DEXA. Last in 09/2014 Her sister also has been ill and she had a partial lung resection. She was a ssmoker and mary kay cross is not but she has used a wood stove and wonders if she needs an XR. Denies hemoptysis, productive cough, wheezing, shortness of breath, dyspnea on exertion. She has an itchy area on her back for 25 years and she wonders if there is something that s he can put on it to reach it. She has a lot of caregiver stress. She is also stressed about her son who is an alcoholic. She has another son whom she is convinced has medical problems but she feels lives in [facility]. SHe is tearful when talking about it today. She notes the positives in her life as well. She continues to work 4 hours per day with no desire to stop. She enjoys the work, the peop le and the distraction (as well as the benefits). Patient's medications, allergies, past medical, surgical, social and family histories were obtained and reviewed as appropriate. ROS Denies hemoptysis, productive cough, wheezing, shortness of breath, dyspnea on exertion. Denies heat or cold intolerance, change in hair/skin/nails or bowel habits, polyuria, polyd ipsia, visual disturbance, headache, weakness, weight gain/loss Denies AZALEA, dysphagia, odynophagia, aspiration, nausea, vomiting, hematemesis, melena, BRBP R Denies fever, chills, night sweats, weight loss, loss of appetite, malaise. Objective:BP 128/70 | Pulse 70 | Temp 36.2 C (97.1 F) (Temporal) | Resp 16 | Wt 67. 5 kg (148 lb 13 oz) | SpO2 99% | BMI 25.95 kg/m Physical Exam GEN: No acute distress. Cushingoid HEENT:EOMI, OP normal CHEST: Clear to auscultation. No wheezes, rales, rhonchi. Normal effort and movement CAR: Rhythm:regular Murmur:no [place]:no JVP:no Pulses:normal radial and carotid ABD: non-distended, non-tender. No hepatosplenomegaly EXT: No clubbing, cyanosis, or edema SKIN: No rashes Assessment/Plan: 1. Caregiver stress We talked about her stress and some coping skills. She was provided wi th advice and resources regarding alcohol treatment for her son. We set realistic expectations in a anju but thoughtful and caring conversation regarding h er Her questions were addressed and answered and she was very thankful for the conversation. 2. Postmenopausal DEXA Bone Density Study WO Vert FX Asses 3. Itchy skin I don't see a rash and I don't think that it would be appropriate to prescri be a cream or topical for something that is not there. This has been going on for over 25 ye ars More than 25 minutes spent face to [...] | | 2019 | Visit | | [employer] [place] | | | | | | [place] | | | | | | [address] | | | | | | | | +--------+---------+ + + + | 07/25/ | Office | Cardiology | Renetta, | | | 2020 | Visit | | [facility] [address] | | | | | | [place] | | | | | | [place] [address] | | | | | | [phone] | | | | | | | | +--------+---------+ + + + | 09/03/ | Office | Endocrinology | Cheryl Zee MD | | | 2020 | Visit | | [address] | | | | | | [address] [place] | | | | | | [address] | | | | | | | | +--------+---------+ + + + documented as of this encounter Results DEXA Bone Density Study [employer] [facility] [place] (08/12/2017 4:40 PM PST) + + | Specimen | + + | | + + + + + | Narrative | Performed At | + + + | DEXA BONE DENSITY STUDY [employer] [facility] ASSESSMENT 08/12/2017 4:40 PM | [facility] [...] + | Diagnosis | + + | Caregiver stress - Primary Other health problem within the family | + + | Postmenopausal Asymptomatic postmenopausal status (age-related) (natural) | + + | Itchy skin Unspecified pruritic disorder | + + documented in this encounter"
--- OUTSIDE RECORDS SUMMARY | ~2020-01-04 | XMS | Encounter Summary ---
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 | Role | Phone | + +------+ + | Julisa Boogie MD | PCP | | + +------+ + Reason for Visit + + + | Reason | Comments | + + + | Chest Pain | | + + + Encounter Details +--------+ + + + + | Date | Type | Department | Care Team | Description | +--------+ + + + + | 11/10/ | Emergency | [facility] | Dmitriy Guzman MD | Stable angina (HCC) | | 2019 | | [facility] | [address] | (Primary Dx) | | | | CENTER [address] | [place] | | | | | [place] | [id number] | | | | | [address] | | | | | | [phone] | | | +--------+ + + + [...] + + + | Blood Pressure | 153/78 | 11/10/2018 12:46 PM | | | | | PDT | | + + + + + | Pulse | 70 | 11/10/2018 12:46 PM | | | | | PDT | | + + + + + | Temperature | 36.2 C (97.1 F) | 11/10/2018 10:59 AM | | | | | PDT | | + + + + + | Respiratory Rate | 19 | 11/10/2018 12:46 PM | | | | | PDT | | + + + + + | Oxygen Saturation | 100% | 11/10/2018 12:46 PM | | | | | PDT | | + + + + + | Inhaled Oxygen | - | - | | | Concentration | | | | + + + + + | Weight | 68 kg (150 lb) | 11/10/2018 10:59 AM | | | | | PDT | | + + + + + | Height | 161.3 cm (5' 3.5") | 11/10/2018 10:59 AM | | | | | PDT | | + + + + + | Body Mass Index | 26.15 | 11/10/2018 10:59 AM | | | | | PDT | | + + + + + documented in this encounter Discharge Instructions Instructions Dmitriy Guzman MD - 11/10/2018Taking 81 mg buffered aspirin every day Metoprolol as prescribed Follow-up with cardiology as discussed Return for chest pain, shortness of breath, persistent symptoms, other new complaints documented in this encounter Medications at Time [...] | | 0 | | | | Kyircvz-Pycaqjtvh-Id | | | | | 9 | [...] under | 5 each | 2 | 10/11/19 | | | (OMNITROPE) 5.8 MG | the skin Daily. | | | 19 | 9 | | SOLR | | | | | | + + + +---------+ + + | Somatropin | 0.2 mg daily | 5 each | 2 | 10/06/19 | | | (OMNITROPE) 5.8 MG | | | | 19 | 9 | | SOLR | | | | | | + + + +---------+ + + documented as of this encounter ED Kassie Cabrales RN - 11/10/2018 11:05 AM PDTPt states she started Human Growth Hormone about 2 weeks ago, d/t pituitary gland abnormality. Dmitriy Lambert MD - 11/10/2018 11:00 AM PDT Emergency Department Encounter NotE CHIEF COMPLAINT Chest pain HPI Oliva Vogt is a 68 y.o. female who presents to the Emergency Department with 2-we ek history of exertional chest discomfort and shortness of breath. She does a brisk walk an d do her work at the [employer] and part way through that walk she begins to get a chest h eaviness, this is resolved with rest. She also notices some shortness of breath that again resolves with rest. She has had a few other episodes again of exertional chest discomfort a nd shortness of breath. No nausea. No lightheadedness. No syncope. No pleuritic pain. N o fever. No cough. Currently she is asymptomatic. PAST MEDICAL & SURGICAL HISTORY Past Medical [...] Laterality: N/A; Surgeon: Shaji Thornton MD; Location: [facility] MEDICAL PROCEDU RE UNIT CYST REMOVAL Left 1970 ENDOMETRIAL BIOPSY 2007 Benign Skull Biopsy 09/28/2011 (Benign) TUBAL LIGATION Bilateral SOCIAL HISTORY Social History Socioeconomic History Marital status: Spouse [...] is bilateral BKA. She works at the [employer]. She doesn't exerc ise because she is so busy with her grands and her son has also been ill and was having to l tameka with her until just recently. They have a mobile home park which they are selling. 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 [...] Inject 0.2 mg under the skin Daily. Somatropin (OMNITROPE) 5.8 MG SOLR 0.2 mg daily ALLERGIES Allergies Allergen Reactions Succinylcholine Chloride Other (See Comments) Hard to wake up REVIEW OF SYSTEMS As in history of present illness. A 10 system of review was otherwise negative. PHYSICAL EXAM VITAL SIGNS: (first vital signs):Temp: 36.2 C (97.1 F) Pulse: 69 Resp: 12 SpO2: 100 % General: Alert, appears well, non toxic HEENT: Normocephalic, atraumatic, OP clear, EOMI Neck: supple, full range of motion, no tracheal deviation Cardiovascular: Normal rate and rhythm, no murmurs, rubs or gallops Pulmonary: CTA bilateral, no wheeze/rhonci or resp distress Abdominal: Soft, non tender, no rebound or guarding Musculoskeletal: normal ROM, no edema Neurologic: Alert, no cranial nerve deficits, no focal deficits Skin: warm and dry EKG Sinus rhythm, 71 bpm, some LVH, no other acute LABS CBC unremarkable CMP unremarkable Troponin 0.02 IMAGING STUDIES X-ray chest negative ASSESSMENT & ED COURSE Patient there was signed his consistent with angina. It actually sounds like new onset sta ble angina given her symptoms are quite specific. Do not think she has anju acute coronary syndrome. EKG and troponin are negative. She is asymptomatic here. I discussed the case with Dr. Alejandro of cardiology. We will go ahead and start her on a beta-herb. She will st art on a buffered aspirin. She is currently on a statin. We will go ahead and refer [facility]. She is given return precautions. DISPOSITION Discharge FINAL IMPRESSION Stable angina Dmitriy Guzman MD 11/10/18 1227 cKassie Reyes R N - 11/10/2018 10:58 AM PDTReports that she had chest "heaviness" with exertion today, and h as been having this for the past couple of weeks. Has been occurring for the past 2 weeks.E lectronically signed by Kassie Green RN at 11/10/2018 10:59 AM PDTdocumented in this encounter Plan of Treatment +--------+---------+ + + + | Date | Type | Specialty | Care Team | Description | +--------+---------+ + + + | 04/29/ | Office | Internal Medicine | Julisa Boogie MD | | | 2019 | Visit | | [address] [place] [address] | | | | | | [place] | | | | | | [address] | | | | | | | | +--------+---------+ + + + | 07/25/ | Office | Cardiology | Renetta, | | | 2020 | Visit | | [facility] [address] | | | | | | [place], | | | | | | [place] [address] | | | | | | [phone] | | | | | | | | +--------+---------+ + + + | 09/03/ | Office | Endocrinology | Cheryl Zee MD | | | 2020 | Visit | | [address] | | | | | | [address] [place] | | | | | | [id number] | | | | | | | | +--------+---------+ + + + documented as of this encounter Procedures + +--------+ + + + | Procedure Name | Priori | Date/Time | Associated Diagnosis | Comments | | | ty | | | | + +--------+ + + + | XR CHEST AP PORTABLE | STAT | 11/10/2018 | | Results for this | | | | 11:32 AM | | procedure are in the | | | | PDT | | results section. | + +--------+ + + + | CBC W/AUTO | STAT | 11/10/2018 | | Results for this | | DIFFERENTIAL | | 11:16 AM | | procedure are in the | | | | PDT | | results section. | + +--------+ + + + | TROPONIN I | STAT | 11/10/2018 | | Results for this | | | | 11:16 AM | | procedure are in the | | | | PDT | | results section. | + +--------+ + + + | COMPREHENSIVE | STAT | 11/10/2018 | | Results for this | | METABOLIC PANEL | | 11:16 AM | | procedure are in the | | | | PDT | | results section. | + +--------+ + + + | ECG 12 LEAD | STAT | 11/10/2018 | | Results for this | | | | 11:07 AM | | procedure are in the | | | | PDT | | results section. | + +--------+ + + + documented in this encounter Results XR Chest AP Portable (11/10/2018 11:32 AM PDT) + + | Specimen | + + | | + + + + + | Narrative | Performed At | + + + | CLINICAL INFORMATION: FABIEN. COMPARISON: 11/29/2015. | [facility] | | FINDINGS: Portable frontal chest radiograph Lungs: No focal | | | airspace disease, pleural effusion, or pneumothorax. | | | Heart/mediastinum: Cardiac silhouette is of normal size. Central | | | pulmonary vasculature has a normal appearance. Bones: No acute | | | osseous abnormality appreciated. IMPRESSION - No acute disease. | | | Dictated and Signed by: Yaakov Estrada MD Electronically | | | signed: 11/10/2018 12:41 PM | | + + + + + | Procedure Note | + + | Vishnu, Rad Results In - 11/10/2018 12:44 PM PDT | | CLINICAL INFORMATION: CP. | | | | COMPARISON: 11/29/2015. | | | | FINDINGS: | | Portable frontal chest radiograph | | | | Lungs: No focal airspace disease, pleural effusion, or pneumothorax. | | | | Heart/mediastinum: Cardiac silhouette is of normal size. Central pulmonary | | vasculature has a normal appearance. | | | | Bones: No acute osseous abnormality appreciated. | | | | IMPRESSION - No acute disease. | | | | Dictated and Signed by: Yaakov Estrada MD | | Electronically signed: 11/10/2018 12:41 PM | + + + +---------+ + + | Performing | Address | City/State/Zipcode | Phone Number | | Organization | | | | + +---------+ + + | [facility] | | | | + +---------+ + + Troponin I (11/10/2018 11:16 AM PDT) + + + + + + | Component | Value | Ref Range | Performed | Pathologist | | | | | At | Signature | + + + + + + | Troponin I | <0.02Comment: | <=0.06 ng/mL | [facility] | | | | Comment:Reference | | [facility] | | | | Ranges: 0.00-0.06 = | | MED[facility] | | | | NORMAL >0.06 = | | [facility] | | | | SUSPICIOUS FOR | [...] | | | | | | [employer] | | | | | [...] + + + + + | [facility] | [address] | [place] | [phone] | | [facility] | | [address] | | | [facility] | | | | + + + + + Comprehensive Metabolic Panel (11/10/2018 11:16 AM PDT) + + + + + + | Component | Value | Ref Range | Performed | Pathologist | | | | | At | Signature | + + + + + + | Na | 142 | 136 - 145 | [facility] | | | | | mmol/L | [facility] | | | | | | [facility] | | | | | | [facility] | | | | | | [facility] | | + + + + + + | K | 3.9 | 3.5 - 5.1 | [facility] | | | | | mmol/L | [facility] | | | | | | [facility] | | | | | | [facility] | | | | | | [facility] | | + + + + + + | Cl | 108 (H) | 98 - 107 mmol/L | [facility] | | | | | | [facility] | | | | | | [facility] | | | | | | [facility] | | | | | | [facility] | | + + + + + + | CO2 | 23 | 21 - 32 mmol/L | [facility] | | | | | | [facility] | | | | | | [facility] | | | | | | [facility] | | | | | | [facility] | | + + + + + + | Anion Gap | 11 | 2 - 16 mmol/L | [facility] | | | | | | [facility] | | | | | | [facility] | | | | | | [facility] | | | | | | [facility] | | + + + + + + | Glucose | 82 | 74 - 106 mg/dL | [facility] | | | | | | [facility] | | | | | | [facility] | | | | | | [facility] | | | | | | [facility] | | + + + + + + | BUN | 21 (H) | 7 - 18 mg/dL | [facility] | | | | | | [facility] | | | | | | [facility] | | | | | | [facility] | | | | | | [facility] | | + + + + + + | Creatinine | 0.98 | 0.55 - 1.02 | [facility] | | | | | mg/dL | [facility] | | | | | | [facility] | | | | | | [facility] | | | | | | [facility]ORY | | + + + + + + | eGFR, | 56 (L)Comment: | >=60 | [facility] | | | non- | GLOMERULAR FILTRATION | mL/min/1.73m2 | [facility] | | | [place] | RATE,ESTIMATED | | MEDICAL | | | | mL/min/1.06n6Rmkp than | | [facility] | | | | 60 Chronic kidney [...] + + | Calcium | 9.3 | 8.5 - 10.1 | [facility] | | | | | mg/dL | [facility] | | | | | | [facility] | | | | | | [facility] | | | | | | [facility] | | + + + + + + | Albumin | 3.7 | 3.4 - 5.0 g/dL | [facility] | | | | | | [facility] | | | | | | [facility] | | | | | | [facility] | | | | | | [facility] | | + + + + + + | Bilirubin | 0.4 | 0.2 - 1.0 mg/dL | [facility] | | | Total | | | [facility] | | | | | | [facility] | | | | | | [facility] | | | | | | [facility] | | + + + + + + | Total | 6.6 | 6.4 - 8.2 g/dL | [facility] | | | Protein | | | [facility] | | | | | | [facility] | | | | | | [facility] | | | | | | [facility] | | + + + + + + | AST | 18 | 15 - 37 U/L | [facility] | | | | | | [facility] | | | | | | [facility] | | | | | | [facility] | | | | | | [facility] | | + + + + + + | ALT | 25 | 14 - 59 U/L | [facility] | | | | | | [facility] | | | | | | [facility] | | | | | | [facility] | | | | | | [facility] | | + + + + + + | Alkaline | 78 | 46 - 116 U/L | [facility] | | | Phosphatase | | | [facility] | | | | | | [facility] | | | | | | [facility] | | | | | | [facility] | | + + + + + + | Globulin | 2.9 | 2.1 - 3.8 g/dL | [facility] | | | | | | [facility] | | | | | | [facility] | | | | | | [facility] | | | | | | [facility] | | + + + + + + | Albumin/Rachel | 1.3 | 0.8 - 2.0 | [facility] | | | bulin Ratio | | | [facility] | | | | | | [facility] | | | | | | [facility] | | | | | | [facility] | | + + + + + + | BUN/Creatin | 21.4 | | [facility] | | | ine Ratio | | | [facility] | | | | | | [facility] | | | | | | [facility] | | | | | | [facility] | | + + + + + + + + | Specimen | + + | Blood | + + + + + + + | Performing | Address | City/State/Zipcode | Phone Number | | Organization | | | | + + + + + | [facility] | [address] | [place] | [phone] | | [facility] | | [address] | | | [facility] | | | | + + + + + CBC w/ Auto Differential (11/10/2018 11:16 AM PDT) + + + + + + | Component | Value | Ref Range | Performed | Pathologist | | | | | At | Signature | + + + + + + | White Blood | 8.1 | 4.0 - 11.0 K/uL | [facility] | | | Cells | | | [facility] | | | | | | MEDICAL | | | | | | CENTER - | | | | | | LABORATORY | | + + + + + + | Red Blood | 4.75 | 3.70 - 5.20 | [facility] | | | Cells | | M/uL | [facility] | | | | | | MEDICAL | | | | | | CENTER - | | | | | | LABORATORY | | + + + + + + | Hemoglobin | 14.3 | 11.5 - 16.0 | [facility] | | | | | g/dL | [facility] | | | | | | MEDICAL | | | | | | CENTER - | | | | | | LABORATORY | | + + + + + + | Hematocrit | 43.1 | 34.0 - 47.0 % | [facility] | | | | | | [facility] | | | | | | MEDICAL | | | | | | CENTER - | | | | | | LABORATORY | | + + + + + + | MCV | 90.7 | 83.0 - 101.0 fL | [facility] | | | | | | [facility] | | | | | | MEDICAL | | | | | | CENTER - | | | | | | LABORATORY | | + + + + + + | MCH | 30.1 | 28.0 - 35.0 pg | [facility] | | | | | | [facility] | | | | | | MEDICAL | | | | | | CENTER - | | | | | | LABORATORY | | + + + + + + | MCHC | 33.2 | 32.0 - 36.0 | [facility] | [...] + + + + | RDW-SD | 43.4 | 35.1 - 46.3 fL | [facility] | | | | | | [facility] | | | | | | MEDICAL | | | | | | CENTER - | | | | | | LABORATORY | | + + + + + + | Platelet | 296 | 140 - 440 K/uL | [facility] | | | Count | | | [facility] | | | | | | MEDICAL | | | | | | CENTER - | | | | | | LABORATORY | | + + + + + + | MPV | 9.8 | 6.5 - 12.4 fL | [facility] | | | | | | [facility] | | | | | | MEDICAL | | | | | | CENTER - | | | | | | LABORATORY | | + + + + + + | % | 49.7 | 45.0 - 82.0 % | [facility] | | | Neutrophils | | | [facility] | | | | | | MEDICAL | | | | | | CENTER - | | | | | | LABORATORY | | + + + + + + | % | 35.5 | 20.0 - 45.0 % | [facility] | | | Lymphocytes | | | [facility] | | | | | | MEDICAL | | | | | | CENTER - | | | | | | LABORATORY | | + + + + + + | % Monocytes | 12.2 (H) | 4.0 - 12.0 % | [facility] | | | | | | [facility] | | | | | | MEDICAL | | | | | | CENTER - | | | | | | LABORATORY | | + + + + + + | % | 1.6 | 0.0 - 5.0 % | [facility] | | | Eosinophils | | | [facility] | | | | | | MEDICAL | | | | | | CENTER - | | | | | | LABORATORY | | + + + + + + | % Basophils | 0.5 | 0.0 - 1.0 % | [facility] | | | | | | [facility] | | | | | | MEDICAL | | | | | | CENTER - | | | | | | LABORATORY | | + + + + + + | % Immature | 0.5 (H)Comment: | 0.0 - 0.4 % | [facility] | | | Granulocyte | Preliminary studies have | | [facility] | | | s | indicated the IG% | | MEDICAL | | | | and/or IG# show promise | | CENTER - | | | | as an early indicator | | LABORATORY | | | | for infection. | | | | + + + + + + | Absolute | 4.01 | 1.80 - 8.50 | [facility] | | | Neutrophils | | K/uL | [facility] | | | | | | MEDICAL | | | | | | CENTER - | | | | | | LABORATORY | | + + + + + + | Absolute | 2.86 | 0.60 - 3.20 | [facility] | | | Lymphocytes | | K/uL | [facility] | | | | | | MEDICAL | | | | | | CENTER - | | | | | | LABORATORY | | + + + + + + | Absolute | 0.98 | 0.00 - 1.00 | [facility] | | | Monocytes | | K/uL | [facility] | | | | | | MEDICAL | | | | | | CENTER - | | | | | | LABORATORY | | + + + + + + | Absolute | 0.13 | 0.00 - 0.40 | [facility] | [...] + + + | Absolute | 0.04 (H) | 0.00 - 0.03 | [facility] | [...] | | | | WBCs | [facility] | | | | [...] [address] | [place] | [phone] | | [facility] | | [address] | | | - LABORATORY | | | | + + + + + ECG 12 lead (11/10/2018 11:07 AM PDT) + + + + + + | Component | Value | Ref Range | Performed | Pathologist | | | | | At | Signature | + + + + + + | VENTRICULAR | 71 | BPM | [facility] | | | RATE EKG | | | | | + + + + + + | ATRIAL RATE | 71 | BPM | [facility] | | + + + + + + | P-R | 168 | ms | [facility] | | | INTERVAL | | | | | + + + + + + | QRS | 86 | ms | [facility] | | | DURATION | | | | | + + + + + + | Q-T | 382 | ms | [facility] | | | INTERVAL | | | | | + + + + + + | Q-T | 415 | ms | [facility] | | | INTERVAL | | | | | | (CORRECTED) | | | | | + + + + + + | P WAVE AXIS | 66 | degrees | [facility] | | + + + + + + | QRS AXIS | -14 | degrees | [facility] | | + + + + + + | T AXIS | 73 | degrees | [facility] | | + + + + + + | INTERPRETAT | Normal sinus | | [facility] | | | ION TEXT | rhythmMinimal voltage | | | | | | criteria for LVH, may be | | | | | | normal | | | | | | variantBorderline | | | | | | ECGWhen compared with | | | | | | ECG of 23-SEP-2018 | | | | | | 14:56,No significant | | | | | | change was | | | | | | foundConfirmed by | | | | | | JULISA BOOGIE MD ([id number]) | | | | | | on 11/10/2018 1:50:44 PM | | | | + + [...] Diagnosis | + + | Stable angina (HCC) - Primary Other and unspecified angina pectoris | + + documented in this encounter
--- OUTSIDE RECORDS SUMMARY | ~2020-01-04 | XMS | Encounter Summary ---
Demographics + + + | Address | [address] | | | [place] [address] | + + + | Home Phone [...] [facility] | | | [...] [place], | | | | | [place] [address] | | + + + + + | Ryan Vogt | ECON | Unknown | | + + + + + | Rob Vogt | ECON | Unknown | | + + + + + Care Team Providers + +------+ + | Care Printing Shop Supervisor Name | Role | Phone | + +------+ + | Abrahan Samaniego MD | PCP | | + +------+ + Reason for Visit + + + | Reason | Comments | + + + | Follow-up | 6 mo follow up | + + + Encounter Details +--------+---------+ + + + | Date | Type | Department | Care Team | Description | +--------+---------+ + + + | 05/30/ | Office | [facility] | Abrahan Samaniego MD | Chronic kidney | | 2018 | Visit | MEDICINE [address] | [address] [facility] | disease, unspecified | | | | [place], | [place] | CKD stage (Primary | | | | [place] [address] | [address] | Dx); Hypokalemia due | | | | [phone] | | to loss of | | | | | | potassium; | | | | | | Dupuytren's | | | | | | contracture; | | | | | | Secondary | | | | | | hypothyroidism; | | | | | | Palpitations; | | | | | | Caregiver stress; | | | | | | Need for | | | | | | pneumococcal | | | | | | vaccination [...] + | Blood Pressure | 138/80 | 05/30/2018 10:05 AM | | | | | PST | | + + + + + | Pulse | 70 | 05/30/2018 10:05 AM | | | | | PST | | + + + + + | Temperature | 35.6 C (96.1 F) | 05/30/2018 10:05 AM | | | | | PST | | + + + + + | Respiratory Rate | 16 | 05/30/2018 10:05 AM | | | | | PST | | + + + + + | Oxygen Saturation | 98% | 05/30/2018 10:05 AM | | | | | PST | | + + + + + | Inhaled Oxygen | - | - | | | Concentration | | | | + + + + + | Weight | 68.8 kg (151 lb 10.8 | 05/30/2018 10:05 AM | | | | oz) | PST | | + + + + + | Height | - | - | | + + + + + | Body Mass Index | 26.87 | 10/06/2017 2:34 PM | | | | | PDT | | + + + + + documented in this encounter Progress Notes Abrahan Samaniego MD - 05/30/2018 10:15 AM PST Subjective: Patient ID: Oliva Vogt is a 68 y.o. female. Oliva is doing well. She remains extremely busy caring for her . Granddaughter is also living with her. She needs paperwork completed for her employer regarding her ' s illness and her ability to get time off. She is denying depression, anhedonia, crying spe lls but admits that she doesn't take enough time for herself. Her son was recently hospital ized with what sounds like end-stage liver disease from chronic alcoholism. Another son has significant issues with osteomyelitis and thoracic and lumbar stenosis. She continues to work. She continues to get good sleep at night. 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 She has now developed a trigger finger in the right index and middle finger. She has a Dup uytren's in the right fourth finger. She has elected to not do anything about it. She was seeing a hand specialist in the [facility]. She says that she typically takes her thyroid medication with all of her other medicines an d she has done this for years. Denies heat or cold intolerance, change in hair/skin/nails or bowel habits, polyuria, polydipsia, visual disturbance, headache, weakness, weight gain/los s She is experiencing occasional palpitations while at rest. They're very transient. No ches t pain, palpitations, shortness of breath, orthopnea, PND, lightheadedness, syncope, near sy ncope, exertional pain in the arm/jaw/shoulder/back, peripheral edema. Patient's medications, allergies, past medical, surgical, social and family histories were obtained and reviewed as appropriate. Review of Systems Constitutional: Negative. HENT: Negative. Eyes: Negative. Respiratory: Negative. Cardiovascular: Negative. Gastrointestinal: Negative. Genitourinary: Negative. Skin: Negative. Objective:BP 138/80 | Pulse 70 | Temp 35.6 C (96.1 F) (Temporal) | Resp 16 | Wt 68. 8 kg (151 lb 10.8 oz) | SpO2 98% | BMI 26.87 kg/m Physical Exam GEN: No acute distress. Cushingoid HEENT:EOMI, OP normal CHEST: Clear to auscultation. No wheezes, rales, rhonchi. Normal effort and movement CAR: Rhythm:regular Murmur:no [place]:no JVP:no Pulses:normal radial and carotid ABD: non-distended, non-tender. No hepatosplenomegaly EXT: No clubbing, cyanosis, or edema Musculoskeletal: She has extensor tendon loss in the right fourth finger DIP. She does not demonstrate trigger fingers in the index or middle finger on the right hand today. Dupuytr en's contracture in the right palm to the fifth finger. Assessment/Plan: 1. Chronic kidney disease, unspecified CKD stage Renal Function Panel 2. Hypokalemia due to loss of potassium 3. Dupuytren's contracture with new trigger fingers she prefers watchful waiting 4. Secondary hypothyroidism T4, Free Seems to be clinically euthyroid 5. Palpitations given reassurance. Recommend watchful waiting 6. Caregiver stress discussed taking time for herself. Discussed starting to do exercise. She heard on the radiologist the other day that doing 5 minutes of exercise 3 times a day can be very helpful. I agree with that. Her family medical leave form was completed today. documented in this enc ounter Plan of Treatment +--------+---------+ + + + | Date | Type | Specialty | Care Team | Description | +--------+---------+ + + + | 04/29/ | Office | Internal Medicine | Abrahan Samaniego MD | | | 2019 | Visit | | [address] [place] [address] | | | | | | [place] | | | | | | [id number] | | | | | | | | +--------+---------+ + + + | 07/25/ | Office | Cardiology | Renetta, | | | 2020 | Visit | | [place] [address] | | | | | | [place] | | | | | | [place] [address] | | | | | | [phone] | | | | | | | | +--------+---------+ + + + | 09/03/ | Office | Endocrinology | Cheryl Zee MD | | | 2020 | Visit | | [address] [place] | | | | | | [address] [place] | | | | | | [address] | | | | | | | | +--------+---------+ + + + documented as of this encounter Results Renal Function Panel (05/30/2018 10:46 AM PST) + +--------+ + + + | Component | Value | Ref Range | Performed | Pathologist | | | | | At | Signature | + +--------+ + + + | Na | 139 | 136 - 149 | [facility] | | | | | mmol/L | [facility] | | | | | | [facility] | | | | | | [facility] - | | | | | | LABORATORY | | + +--------+ + + + | K | 3.8 | 3.5 - 5.1 | [facility] | | | | | mmol/L | [facility] | | | | | | [facility] | | | | | | C[facility] - | | | | | | LABORATORY | | + +--------+ + + + | Cl | 107 | 98 - 109 mmol/L | [facility] | | | | | | [facility] | | | | | | [facility] | | | | | | C[facility] - | | | | | | LABORATORY | | + +--------+ + + + | CO2 | 26 | 24 - 31 mmol/L | [facility] | | | | | | [facility] | | | | | | [facility] | | | | | | C[facility] - | | | | | | LABORATORY | | + +--------+ + + + | Anion Gap | 6 | 3 - 16 mmol/L | [facility] | | | | | | [facility] | | | | | | [facility] | | | | | | CENTER - | | | | | | LABORATORY | | + +--------+ + + + | Glucose | 88 | 70 - 109 mg/dL | [facility] | | | | | | [facility] | | | | | | MEDICAL | | | | | | CENTER - | | | | | | LABORATORY | | + +--------+ + + + | BUN | 15 | 7 - 18 mg/dL | [facility] | | | | | | [facility] | | | | | | MEDICAL | | | | | | CENTER - | | | | | | LABORATORY | | + +--------+ + + + | Creatinine | 0.97 | 0.60 - 1.30 | [facility] | | | | | mg/dL | [facility] | | | | | | [facility] | | | | | | [facility] - | | | | | | LABORATORY | | + +--------+ + + + | eGFR, | 57 (L) | >=60 | [facility] | | | non- | | mL/min/1.73m2 | [facility] | | | [facility] | | | MEDICAL | | | | | | CENTER - | | | | | | LABORATORY | | + +--------+ + + + | Calcium | 9.2 | 8.3 - 10.5 | [facility] | | | | | mg/dL | [facility] | | | | | | [facility] | | | | | | C[facility] - | | | | | | LABORATORY | | + +--------+ + + + | Albumin | 3.7 | 3.2 - 5.0 g/dL | [facility] | | | | | | [facility] | | | | | | [facility]ICAL | | | | | | CENTER - | | | | | | LABORATORY | | + +--------+ + + + | Phosphorus | 2.6 | 2.5 - 4.6 mg/dL | [facility] | | | | | | [facility] | | | | | | MEDICAL | | | | | | C[facility] - | | | | | | LABORATORY | | + +--------+ + + + | BUN/Creatin | 15.5 | | [facility] | | | ine [...] + | [facility] | [address] | [place] | [phone] | | [facility] | | [address] | | | - LABORATORY | | | | + + + + + T4, Free (05/30/2018 10:46 AM PST) + +-------+ + + + | Component | Value | Ref Range | Performed | Pathologist | | | | | At | Signature | + +-------+ + + + | FT4 | 0.7 | 0.6 - 1.1 ng/dL | [facility] [...] [address] | [place] | [phone] | | [facility] | | [address] | | | - LABORATORY | | | | + + + + + documented in this encounter Visit Diagnoses + + | Diagnosis | + + | Chronic kidney disease, unspecified CKD stage - Primary | + + | Hypokalemia due to loss of potassium | + + | Dupuytren's contracture Contracture of palmar fascia | + + | Secondary hypothyroidism Other specified acquired hypothyroidism | + + | Palpitations | + + | Caregiver stress Other health problem within the family | + + | Need for pneumococcal vaccination Need for prophylactic vaccination against | | streptococcus pneumoniae (pneumococcus) | + + documented in this encounter"
--- OUTSIDE RECORDS SUMMARY | ~2020-01-04 | XMS | Encounter Summary ---
Demographics + + + | Address | [address] | | | [place] [address] | + + + | Home Phone [...] | Author | [facility] | [...] [place], | | | | | [place] [address] | | + + + + + | Ryan Vogt | ECON | Unknown | | + + + + + | Rob Vogt | ECON | Unknown | | + + + + + Care Team Providers + +------+ + | Care Hvac Field Service Technician Name | Role | Phone | [...] Description | +--------+--------+ + + + | 04/13/ | Refill | [facility] | Abrahan Samaniego MD | Medication Refill | | 2011 | | MEDICINE [address] [place] [address] | [address] [place] [address] | | | | | [place], | [place] | | | | | [place] [address] | [address] | | | | | [phone] | | | +--------+--------+ + + + [...] | 2019 | Visit | | [address] [place] [address] | | | | | | [place] | | | | | | [address] | | | | | | | | +--------+---------+ + + + | 07/25/ | Office | Cardiology | Renetta, | | | 2020 | Visit | | [place] [address] | | | | | | [place] | | | | | | [place] [address] | | | | | | [phone] | | | | | | | | +--------+---------+ + + + | 09/03/ | Office | Endocrinology | Cheryl Zee MD | | | 2020 | Visit | | [address] | | | | | | [address] [place], [place] | | | | | | [address] | | | | | | | | +--------+---------+ + + + +------+------+--------+ + + | Name | Type | Priori | Associated Diagnoses | Order Schedule | | | | ty | | | +------+------+--------+ + + | TSH | Lab | Routin | Hypothyroidism | 1 Occurrences | | | | e | | starting 04/13/2012 | | | | | | until 04/13/2013 | +------+------+--------+ + + documented as of this encounter Visit Diagnoses + + | Diagnosis | + + | Hypothyroidism - Primary Unspecified hypothyroidism | + + documented in this encounter"
--- OUTSIDE RECORDS SUMMARY | ~2020-01-04 | XMS | Encounter Summary ---
Demographics + + + | Address | [address] | | | [place] [address] | + + + | Home Phone [...] Author | [facility] | [...] [place], | | | | | [place] [address] | | + + + + + | Ryan Vogt | ECON | Unknown | | + + + + + | Rob Vogt | ECON | Unknown | | + + + + + Care Team Providers + +------+ + | Care Folding Machine Operator Name | Role | Phone | + +------+ + | Abrahan Samaniego MD | PCP | | + +------+ + Reason for Referral Occupational Therapy (Routine) +--------+ + + + + + | Status | Reason | Specialty | Diagnoses / | Referred By | Referred To | | | | | Procedures | Contact | Contact | +--------+ + + + + + | Closed | Specialty | Immediate | Diagnoses | [place], | [facility] | | | Services | Care | Shoulder | Abrahan Cortez MD | Occupational | | | Required | | pain | [address] | [facility] | | | | | | STRE[address] | [address] | | | | | | [place], | [address] | | | | | | [place] [address] | [place], | | | | | | Phone: | [place] [address] | | | | | | [phone] | Phone: | | | | | | Fax: | [phone] | | | | | | [phone] | Fax: | | | | | | | [phone] | +--------+ + + + + + Reason for Visit + + + | Reason | Comments | + + + | Shoulder Pain | left | + + + Encounter Details +--------+---------+ + + + | Date | Type | Department | Care Team | Description | +--------+---------+ + + + | 08/26/ | Office | [facility] | Abrahan Samaniego MD | Shoulder pain | | 2012 | Visit | MEDICINE [address] | [address] [facility] | (Primary Dx) | | | | [place], | [place] | | | | | [place] [address] | [address] | | | | | [phone] | | | +--------+---------+ + + + [...] + + + | Blood Pressure | 131/71 | 08/26/2012 10:18 AM | | | | | PDT | | + + + + + | Pulse | 73 | 08/26/2012 10:18 AM | | | | | PDT | | + + + + + | Temperature | - | - | | + + + + + | Respiratory Rate | 12 | 08/26/2012 10:18 AM | | | | | PDT | | + + + + + | Oxygen Saturation | 97% | 08/26/2012 10:18 AM | | | | | PDT | | + + + + + | Inhaled Oxygen | - | - | | | Concentration | | | | + + + + + | Weight | 69.4 kg (153 lb) | 08/26/2012 10:18 AM | | | | | PDT | | + + + + + | Height | - | - | | + + + + + | Body Mass Index | 27.1 | 05/16/2012 11:10 AM | | | | | PST | | + + + + + documented in this encounter Progress Notes Abrahan Samaniego MD - 08/26/2012 10:22 AM PDTFormatting of this note might be different fro m the original. 08/26/2012 Mona Vogt 1950 History: Mona Vogt is a 62 y.o. female here for Left Shoulder Pain The aleve and ice was remarkably helpful but she unfortunately developed GI distress from t he Aleve. Denies AZALEA, dysphagia, odynophagia, aspiration, nausea, vomiting, hematemesis, juve mel, BRBPR. When she stopped the Aleve, the pain came back. She is unable to stop the job that she has which keeps re-aggravating it. They have apparently not modified her duties. Her pain is a 3-4 /10, which she describes as an ache or as if she got "slugged in the shou lder" worse when she reaches up over her head, hurts to sleep on it at night and then especi ally to reach around her back as if to hook her bra. 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 Current Outpatient Rx Name Route Sig Dispense Refill LEVOXYL 100 MCG PO TABS take 1 tablet by mouth once daily 90 tablet 2 Dispense as written. VITAMIN D 1000 UNITS PO TABS Oral Take 1,000 Units by mouth Daily. PREDNISONE 1 MG PO TABS Take 1 by mouth daily with one 5 mg tab (total 6mg by mouth da matilde ) PREDNISONE 5 MG PO TABS Take 1 tablet by mouth daily with one 1 mg tab (total 6mg by m outh daily ) CALCIUM CARBONATE-VITAMIN D 600-125 MG-UNIT PO TABS Oral Take by mouth Daily. Allergies Allergen Reactions Succinylcholine Chloride Review of Systems: No N/T/W Physical Exam: BP 131/71 | Pulse 73 | Resp 12 | Wt 69.4 kg (153 lb) | SpO2 97% LEFT SHOULDER EXAM: INSPECTION: normal PALPATION:Normal including the biceps, triceps, deltoid, trapezius,scapula, clavicle, AC dennys int and biceps tendons ROM: Active:slightly decreased Passive:normal Forward Flex: normal Backward Flex:normal Abduction: decreased and slightly painful Adduction: normal Ext Rot (Apley):+ Int Rot (Reverse Apley): + STRENGTH: Job's test: [place] and possibly some weakness Push Off Test:painful and possible weakness External Rotators:normal IMPINGEMENT TEST: Negative Speed's Test for biceps tendon: Negative O'brein's Test (Speed's with thumb down for Labral Path): Negative Assessment: 1. Shoulder pain : This sounds as if it is related to an on the job injury Refer to [facility] Check left shoulder x-ray Continue to recommend that she not lift above the mid-chest level documented in this en counter Plan of Treatment +--------+---------+ + + + | Date | Type | Specialty | Care Team | Description | +--------+---------+ + + + | 04/29/ | Office | Internal Medicine | Abrahan Samaniego MD | | | 2019 | Visit | | [address] [place] [address] | | | | | | [place] | | | | | | [address] | | | | | | | | +--------+---------+ + + + | 07/25/ | Office | Cardiology | Renetta, | | | 2020 | Visit | | [facility] [address] | | | | | | [place], | | | | | | [place] [address] | | | | | | [phone] | | | | | | | [...] Ambulatory referral | Outpatient | Routin | Shoulder pain | Ordered: 08/26/2012 | | to Occupational | Referral | e | | | | Medicine | | | | | + + +--------+ + + documented as of this encounter Results XR Shoulder Left 2 + Vw (08/26/2012 1:46 PM PDT) + + | Specimen | + + | | + + + + + | Narrative | Performed At | + + + | [facility] | [facility] | | Department [facility] [place][note 2] [facility] [place] | [facility] | | [ rep [address]] [ rep [facility] | | st zip] Signed | - IMAGING | | | | | Patient Name: MONA VOGT Physician: | | | Frank : 1950 Age: 62 Sex: F Unit #: [id number] | | | Exam Date: 08/26/12 Location: [facility] [place] | | | Report #: [id number] Page: | | | %(RAD)RES..mtdd.print.filter("pg") of %(RAD) | | | RES..mtdd.print.filter("tpg") | | | | | | Accession Number: [id number] | | | LEFT SHOULDER CLINICAL HISTORY: [...] Transcribed | | | Date/Time: 08/26/2012 14:25 Manager Policy: | | | <<Signature on File>> | | | | | | Chan Shahid MD08/26/12 1612 <Electronically signed by | | | Chan Shahid MD> Chan Shahid MD 08/26/12 | | | 1346 Manager Policy: Elise Uhgyzrqabvwxh22/22/13 142 | | | Abrahan Samaniego MD | | + + + + + + + + | Performing | Address | City/State/Zipcode | Phone Number | | Organization | | | | + + + + + | [facility] | [address] | [place] | [phone] | | [facility] | | [address] | | | - IMAGING | | | | + + + + + documented in this encounter Visit Diagnoses + + | Diagnosis | + + | Shoulder pain - Primary Pain in joint, shoulder region | + + documented in this encounter
--- OUTSIDE RECORDS SUMMARY | ~2020-01-04 | XMS | Encounter Summary ---
Demographics + + + | Address | [address] | | | [place] [address] | + + + | Home Phone [...] + | Author | [facility] | | [...] [place], | | | | | [place] [address] | | + + + + + | Ryan Vogt | ECON | Unknown | | + + + + + | Rob Vogt | ECON | Unknown | | + + + + + Care Team Providers + +------+ + | Care Environmental Studies Professor Name | Role | Phone | + +------+ + | Abrahan Samaniego MD | PCP | | + +------+ + Reason for Visit + + + | Reason | Comments | + + + | Fever (9 Weeks To 74 | | | Years) | | + + + | Emesis | | + + + Auth/Cert +--------+--------+ + + + + | Status | Reason | Specialty | Diagnoses / | Referred By | Referred To | | | | | Procedures | Contact | Contact | +--------+--------+ + + + + | | | | Diagnoses | | | | | | | Adrenal | | | | | | | insufficienc | | | | | | | y ([facility]) | | | | | | | Gastroenteri | | | | | | | tis Sepsis, | | | | | | | due to | | | | | | | unspecified | | | | | | | organism | | | | | | | | | | +--------+--------+ + + + + Encounter Details +--------+ + + + + | Date | Type | Department | Care Team | Description | +--------+ + + + + | 11/28/ | Hospital | [facility] | Jake Powell, | Sepsis, due to | | 2016 - | Encounter | [facility] | [address] | unspecified organism | | | | [address] [place] | [place], [place] | ([facility]) (Primary Dx); | | 12/01/ | | [place] [address] | [id number] | Gastroenteritis; | | 2016 | | [phone] | | Adrenal | | | | | Ifeanyi Romo MD | insufficiency ([facility]); | | | | | [address] | Bacterial UTI; | | | | | [place] | Chronic kidney | | | | | [id number] | disease (CKD), | | | | | | unspecified stage; | | | | | | Hyperlipidemia, | | | | | | unspecified | | | | | | hyperlipidemia type; | | | | | | Hypothyroidism, | | | | | | unspecified type | +--------+ + + + + [...] + + + | Blood Pressure | 156/71 | 12/02/2015 4:00 PM | | | | | PDT | | + + + + + | Pulse | 51 | 12/02/2015 4:00 PM | | | | | PDT | | + + + + + | Temperature | 36 C (96.8 F) | 12/02/2015 4:00 PM | | | | | PDT | | + + + + + | Respiratory Rate | 18 | 12/02/2015 4:00 PM | | | | | PDT | | + + + + + | Oxygen Saturation | 97% | 12/02/2015 4:00 PM | | | | | PDT | | + + + + + | Inhaled Oxygen | - | - | | | Concentration | | | | + + + + + | Weight | 69.4 kg (153 lb) | 12/02/2015 5:15 AM | | | | | PDT | | + + + + + | Height | 161.3 cm (5' 3.5") | 11/30/2015 4:05 AM | | | | | PDT | | + + + + + | Body Mass Index | 26.67 | 11/30/2015 4:05 AM | | | | | PDT | | + + + + + documented in this encounter Discharge Summaries Jez Pelaez DO - 12/02/2015 4:26 PM PDTFormatting of this note might be different f rom the original. [facility] DISCHARGE SUMMARY Pt. Name/Age/: Oliva Vogt 65 y.o. 1950 Date of Admission: 11/29/2015 Date of Discharge: 12/02/2015 Admitting Physician: Ifeanyi Romo MD Primary Care Provider: Abrahan Samaniego MD Discharging Physician: Jez Pelaez DO DISCHARGE DIAGNOSES: Active Hospital Problems Diagnosis Gastroenteritis Bacterial UTI Hypokalemia due to loss of potassium Adrenal insufficiency Hypothyroidism Hyperlipidemia Chronic kidney disease (CKD) Resolved Hospital Problems Diagnosis No resolved problems to display. DISCHARGE MEDICATIONS: Discharge Medications New Medications Details ciprofloxacin 500 mg tablet Take 1 tablet by mouth 2 times daily for 5 days. aka: CIPRO diphenoxylate-atropine 2.5-0.025 mg/5 mL liquid Take 5 mLs by mouth 4 times daily as needed (diarrhea). aka: LOMOTIL Unchanged Medications Details atorvaSTATin 10 mg tablet take 1 tablet by mouth NIGHTLY aka: LIPITOR Calcium Carbonate-Vitamin D 600-125 MG-UNIT Tabs Take by mouth Daily. cholecalciferol 1,000 units tablet Take 1,000 Units by mouth Daily. aka: VITAMIN D-3 levothyroxine 100 mcg tablet Take 1 tablet by mouth every morning (before breakfast). aka: SYNTHROID, LEVOTHROID predniSONE 5 mg tablet Take 1 tablet by mouth Daily. aka: DELTASONE Start: 12/03/2015 HOSPITAL COURSE: Please refer to the H&P for full details and the most recent rounding rounding (progress) n ote. In short this is a 65 y.o. 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 She follows with Dr. Antony mendieta. She felt well on Wednesday. There was some hamburger that had been in the refrige rator for about a week and a friend who is a cold meat chef came over and cooked Hamburgers and they a te them on Wednesday and apparently that cold meat chef later got sick as well as patient but patient' s did not get sick. Patient felt unwell on with some diarrhea and by she felt "hard to move" but only mild abdominal pain and then she started running Wednesday night. She's had diarrhea but that it's not bloody nor black and no vomiting blood. She did not check her temperature at home but was found to have a high fever in the ER as well a s significant tachycardia. Gastroenteritis - Patient presented with abdominal pain and diarrhea after eating hamburgers cooked at home on Wednesday with cold meat chef also getting sick, but not . Patient was present with high- grade fever and tachycardia. - At this point time cause of patient's gastroenteritis seems to be either bacterial or vir al, but based on positive lactoferrin and no evidence of E. coli, Shigella or C. diff and romeo wilsonnilson still has persistent diarrhea will do trial of Imodium as needed for diarrhea and will not add IV Flagyl yet to treat possible bacterial cause, unless diarrhea doesn't get better with imodium. - Continue with IV fluids, but since patient tolerating full liquid diet I will change flui ds over to normal saline at 100 ML's per hour. - Patient is on replacement for low phosphate with oral Phos twice daily with tonight being last dose. Phosphate is rising, but still not back to normal, hence will repeat another lev el in am. - 12/01: Patient's symptoms almost completely resolved, she hasn't had diarrhea since yester day and tolerated advancement of diet to full liquid diet with out any problems. Her phospat e is back to normal after replacement therapy as noted before. Bacterial UTI - Urine culture is growing coagulase negative staph bacteria, hence based on sensitivities will stop IV Rocephin and discharge on oral Cipro bid x 5 days. FYI: MRSA came back negative , BC from 11/28 are still negative. Hypokalemia due to loss of potassium - 12/01: patient had low potassium on day of discharge. She was given a total of 60 meq of o ral potassium to correct for it prior to discharge Adrenal insufficiency - Patient is on chronic prednisone and was started on stress dose steroids with IV Hydrocor tisone. - 11/30: patient is clinically doing better hence will decrease IV Hydrocortisone down to q1 2h. - 12/01: resume home prednisone dose in am Hypothyroidism - c/w levothyroxine Hyperlipidemia - c/w statin Chronic kidney disease (CKD) - patient has underlying mild chronic renal insufficiency, stage 3 at baseline, but on pres entation she was dehydrated with mild ROSA. Improved now s/p IVF hydration. - improved at discharge. DISPOSITION: Home Most recent weight: Input and output for last 24hrs: Wt Readings from Last 1 Encounters: 12/02/15 69.4 kg (153 lb) I/O last 24 Hours: In: 12722 [P.O.:380; I.V.:9677] Out: 1650 [Urine:1100; Stool:550] Vitals Ranges: Temp: [36.5 C (97.7 F)-36.6 C (97.9 F)] 36.6 C (97.8 F) Pulse: [50-57] 50 Resp: [16] 16 BP: (127-146)/(60-67) 142/67 mmHg Vitals: Temp: 36.6 C (97.8 F) BP: 142/67 mmHg Pulse: 50 Resp: 16 SpO2: 95 % SpO2 95 % on room air at flow rate L/min PHYSICAL EXAM: Patient seen and examined by me on discharge day. Patient states that today she hasn't had any loose stools, abdomen is not as "rolling" today as yesterday. General alert, NAD mood and affect normal speech fluent Cardiac RRR no MRG Extremities no significant edema Lung clear to auscultation effort not labored Abdominal hyperactive bowel sounds, soft, nontender PROCEDURES AND CONSULTS: Procedures Ct Abdomen Pelvis W Contrast 11/30/2015 DISCLAIMER: This is a preliminary report provided by [employer] As MELONIE yung. A final report is available at [facility]. CT ABDOMEN AND PELVIS WITH CONTRAST CLINICAL INFORMATION: Fever and vomiting. CASIMIRO RISON: CHOLANGIOGRAM IN OR 1ST SET dated 01/05/2007 PROCEDURE: Axial images through the ab domen and pelvis after the administration of 85 ml Omnipaque 350 intravenous contrast. Multi planar reconstructions. At least one of the following CT dose optimization techniques we re used: Automated exposure control; Adjustment of mA and/or kV according to patient size; U se of iterative reconstruction technique. FINDINGS: See below. IMPRESSION: 1. Fluid- filled and mildly dilated small bowel. Fluid-filled normal caliber colon. No evidence of obstruction, inflammation or perforation. Findings may be seen in the setting of an enter itis or ileus. 2. Normal appendix. 3. Prior cholecystectomy. Mildly prominent postoperativ e biliary ducts. 4. Prominent bilateral parapelvic renal cysts. No evidence of renal obstr uction. Dictated by: Michael Heard Signed by: Michael Heard Report sent: 11/30/2015 1:5 3:00 AM Consults None PENDING RESULTS: BMP, Mg to be obtained at the follow up appointment with Dr. Samaniego. Final result of BC fr om 11/28. DISPOSITION AND DISCHARGE INSTRUCTIONS: Follow-up Information Follow up with Abrahan Samaniego MD In 4 days. Specialty: Internal Medicine Why: for hospital follow up Contact information: [address] [place] [id number] Condition: Patient being discharged with condition improved. Diet: fiber restricted diet for the next 24 to 48 hours then advance to heart healthy diet as tolerated. Less than 30 minutes were spent on discharge and coordination of post-hospital care. Electronically signed by: Jez Pelaez DO, 12/02/2015 16:26 [facility] Portions of this chart may have been created with [employer] voice recognition software. Occasi onal wrong-word or sound-alike substitutions may have occurred due to the inherent lópez itations of voice recognition software. Please read the chart carefully and recognize, using context, where these substitutions have occurred documented in this encounter Discharge Instructions Instructions Jez Pelaez DO - 12/02/2015 Treating Diarrhea Diarrhea occurs when you have loose, watery, or frequent bowel movements. It is a common pr oblem with many causes. Most cases of diarrhea clear up on their own. But certain cases may need treatment. Be sure to see your health care providerif your symptoms do not improve wi thin a few days. Getting Relief Treatment of diarrhea depends on its cause. Diarrhea caused by bacterial or parasite infect ion is often treated with antibiotics. Diarrhea caused by other factors, such as a stomach v irus, often improves with simple home treatment. The tips below may also help relieve your s ymptoms. Drink plenty of fluids. This helps prevent too much fluid loss (dehydration). Water, marley ar soups, and electrolyte solutions are good choices. Avoid alcohol, coffee, tea, and milk. These can make symptoms worse. Suck on ice chips if drinking makes you queasy. Return to your normal diet slowly. You may want to eat bland foods at first, such as ileana e and toast. Also, you may need to avoid certain foods for a while, such as dairy products. These can make symptoms worse. Ask yourhealth care providerif there are any other foods you should avoid. If you were prescribed antibiotics, take them as directed. Do not take anti-diarrhea medications without asking yourhealth care providerfirst. Call YourHealth Care ProviderIf You Have: Fever of 102F (38.0C) or higher Severe pain Worsening diarrhea or diarrhea for more than 2 days Bloody vomit or stool Signs of dehydration (dizziness, dry mouth and tongue, rapid pulse, dark urine) [id number] [employer]. [address] [place] [address], [place] [address]. All righ ts reserved. This information is not intended as a substitute for professional medical care. Always follow your healthcare professional's instructions. Noninfectious Gastroenteritis (Ages 6 Years to Adult) Gastroenteritis can cause nausea, vomiting, diarrhea, and abdominal cramping. This may occu r as a result of food sensitivity, inflammation of yourgastrointestinal tract, medicines, stress, or other causes not related to infection.Your symptoms willusuallylast from 1 to 3 days, but can last longer.Antibiotics are not effective, but simple home treatment wi ll be helpful. Home care Medicine You may use acetaminophenor NSAID medicines like ibuprofen or naproxen to control feve r, unless another medicine is prescribed. (Note: If you have chronic liver or kidney disease , or ever had a stomach ulcer or gastrointestinalI bleeding, talk with your healthcare provi tommie before using these medicines.) Aspirin should never be used in anyone under 18 years of age who is ill with a fever. It may cause severe liver damage. Don't increase your NSAID med icines if you are already taking these medicines for another condition (like arthritis). Don 't use NSAIDS if you are on aspirin (such as for heart disease, or after a stroke). If medicines for diarrhea or vomitingare prescribed, take only as directed. General care and preventing spread of the illness If symptoms are severe, rest at home for the next 24 hours or until you feel better. Hand washing with soap and water is the best way to prevent the spread of infection. Was h your hands after touching anyone who is sick. Wash your hands after using the toilet and before meals. Clean the toilet after each use . Caffeine, tobacco, and alcohol can make your diarrhea, cramping, and pain worse. Diet Water and clear liquids are important so you do not get dehydrated. Drink a small amount at a time. Do not force yourself to eat, especially if you have cramps, vomiting, or diarrhea. When you finally decide to start eating, do not eat large amounts at a time, even if you are hun gry. If you eat, avoid fatty, greasy, spicy, or fried foods. Do not eat dairy products if you have diarrhea; they can make the diarrhea worse. During the first 24 hours (the first full day), follow the diet below: Beverages: Water, clear liquids, soft drinks without caffeine, likeginger ghassan; mineral water (plain or flavored); decaffeinated tea and coffee. Soups: Clear broth, consomm, and bouillon Sports drinks aren't a good choice because t hey have too much sugar and not enough electrolytes. In this case, commercially available pr oducts called oral rehydration solutions are best. Desserts: Plain gelatin, popsicles, and fruit juice bars. During the next 24 hours(the second day),you may add the following to the aboveif you have improved. If not, continue what you did the first day: Hot cereal, plain toast, bread, rolls, crackers Plain noodles, rice, mashed potatoes, chicken noodle or rice soup Unsweetened canned fruit (avoid pineapple), bananas Limit caffeine and chocolate. No spices or seasonings except salt. During the next 24 hours Gradually resume a normal diet, as you feel better and your symptoms improve. If at any time your symptoms start getting worse, go back to clear liquids until you fee l better. Food preparation If you have diarrhea, youshould not prepare food for others. When you prepare food f or yourself, wash your hands before and after. Wash your hands after using cutting boards, countertops, and knives that have been in co ntact with raw food. Keep uncooked meats away from cooked and ksgcy-xo-mnt foods. Follow-up care Follow up with yourhealthcare provider if you are not improving over the next 2 to 3 days , or as advised. If a stool (diarrhea) sample was taken,call for the results as directed. When to seek medical care Call your healthcare provider right away if any of these occur: Increasing abdominal pain or constant lower right abdominal pain Continued vomiting (unable to keep liquids down) Frequent diarrhea (more than 5 times a day) Blood in vomit or stool (black or red color) Inability to tolerate solid food after a few days. Dark urine, reduced urine output Weakness, dizziness Drowsiness Fever of 100.4F (38.0C) or higher, or as directed by your healthcare provider New rash Call 911 Call 911 if any of these occur: Trouble breathing Chest pain Confusion Severe drowsiness or trouble awakening Seizure Stiff neck [phone] [employer]. [address] [place] [address], [place] [address]. All righ ts reserved. This information is not intended as a substitute for professional medical care. Always follow your healthcare professional's instructions. Urinary Tract Infections in Women Urinary tract infections (UTIs) are most often caused by bacteria (germs). These bacteria e nter the urinary tract. The bacteria may come from outside the body. Or they may travel from the skin outside therectum or vagina into the urethra. Female anatomy makes it easier for bacteria from the bowelto enter a woman s urinary tract, which is the most common sourc e of UTI. This means women develop UTIs more often than men. Pain in or around the urinary t ract is a common UTI symptom. But the only way to know for sure if you have a UTI for the [facility] care provider to test your urine. The two tests that may be done are the urinalysis and urine culture. Types of UTIs Cystitis: A bladder infection (cystitis) is the most common UTI in women. You may have u rgent or frequent urination. You may also havepain, burning when you urinate, and bloody u rine. Urethritis: This is an inflamed urethra, which is the tube that carries urine from the b ladder to outside the body. You may have lower stomach or back pain. You may also have urgen t or frequent urination. Pyelonephritis: This is a kidney infection. If not treated, it can be serious and damage your kidneys. In severe cases, you may be hospitalized. You may have a fever and lower back pain. Medications to treat a UTI Most UTIs are treated with antibiotics. These kill the bacteria. The length of time you nee d to take them depends on the type of infection. It may be as short as 3 days. If you have r epeated UTIs, a low-dose antibiotic may be needed for several months. Take antibiotics exact ly as directed. Don t stop taking them until all of the medication is gone. If you stop ta leroy the antibiotic too soon, the infection may not go away, and you may develop a resistanc e to the antibiotic. This can make it much harder to treat. Lifestyle changes to treat and prevent UTIs The lifestyle changes below will help get rid of your UTI. They may also help prevent futur e UTIs. Drink plenty of fluids. This includes water, juice, or other caffeine-free drinks. Fluid s help flush bacteria out of your body. Empty your bladder. Always empty your bladder when you feel the urge to urinate. And alw ays urinate before going to sleep. Urine that stays in your bladder can lead to infection. T ry to urinate before and after sex as well. Practice good personal hygiene. Wipe yourself from front to back after using the toilet. This helps keep bacteria from getting into the urethra. Use condoms during sex. These help prevent UTIs caused by sexually transmitted bacteria. Also, avoid using spermicides during sex. These can increase the risk of UTIs. Choose other forms of control instead. For women who tend to get UTIs after sex, a low-dose of a p reventive antibiotic may be used. Be sure to discuss this option with your health care provi tommie. Follow up with your health care provider as directed. He or she may test to make sure th e infection has cleared. If necessary, additional treatment may be started. [id number] [employer]. [address] [place] [address], [place] [address]. All righ ts reserved. This information is not intended as a substitute for professional medical care. Always follow your healthcare professional's instructions. ADDITIONAL INSTRUCTIONS: 1. Continue with fiber restricted diet, gastroenteritis diet for next 24 to 48 hours then a dvance to heart healthy diet as tolerated. documented in this encounter Medications at Time [...] + + + +---------+ + + | ciprofloxacin | Take 1 tablet by | 10 | 0 | 12/02/19 | | | (CIPRO) 500 mg | mouth 2 times daily | tablet | | 16 | 6 | | tablet | for 5 days. | | | | | + + [...] tablet by | 90 | 3 | 12/03/19 | | | (DELTASONE) 5 mg | mouth Daily. | tablet | | 16 | 6 | | tablet | | | | | | + + + +---------+ + + documented as of this encounter Progress Notes Semaj Talley RN - 12/02/2015 6:13 PM PDTDischarge instructions reviewed with randolph green, prescriptions given, all questions answered. Semaj Black RN - 12/01/2015 2:51 PM PDTL aura arrived to unit, orientated to room, call light within reach, heart regular, lung sound s clear on RA, bowel tones hyperactive last episode of diarrhea about an hour ago, skin inta ct, IV to right forearm running NS 0.9% at 100ml/hr, A&O x4, calls appropriately, water and juice given upon her request. Electronically signed by Semaj Talley RN at 016 2:54 PM Semaj Black RN - 12/01/2015 2:26 PM PDTReport received from Allison hugo RN ICU, all questions answered. Elsa Galvan DO - 12/01/2015 11:45 AM PDTFormatting of this note might be different from the origin [facility] PROGRESS NOTE Patient: Oliva Vogt : 1950: Age: 65 y.o. MedRec: [id number] PCP: Abrahan Samaniego MD Admission date: 11/29/2015 Hospital day # : 1 Physician author: Jez Pelaez DO Today: 12/01/2015 Allergies: Allergies Allergen Reactions Succinylcholine Chloride Other (See Comments) Hard to wake up Current Medications: Current Facility-Administered Medications Medication Dose Route Frequency Provider Last Rate Last Dose atorvaSTATin (LIPITOR) tablet 10 mg 10 mg Oral Nightly Ifeanyi Romo MD 10 mg at 0 11/30/152050 dextrose 5% and sodium chloride 0.45% with KCl 30 mEq/L (D5 1/2 NS + KCL 30) infusion Intravenous Continuous Ifeanyi Romo MD 125 mL/hr at 12/01/15 1131 1,000 mL at 12/01/15 1 131 hydrocortisone (PF) (solu-CORTEF) injection 50 mg 50 mg Intravenous 4 times per day Ness Romo MD 50 mg at 12/01/15 1131 levothyroxine (SYNTHROID, LEVOTHROID) tablet 100 mcg 100 mcg Oral QAM AC Ifeanyi echavarria MD 100 mcg at 12/01/15 0652 ondansetron (ZOFRAN ODT) disintegrating tablet 4 mg 4 mg Oral Q6H PRN Ifeanyi Romo MD ondansetron (ZOFRAN) injection 4 mg 4 mg Intravenous Q6H PRN Ifeanyi Romo MD potassium phosphate-sodium phosphate (PHOS-NAK) packet 1 packet 1 packet Oral BID () Ifeanyi Romo MD 1 packet at 12/01/15 0845 Current Infusions: dextrose 5% and sodium chloride 0.45% with KCl 30 mEq/L 1,000 mL (12/01/15 1131) Objective Data Labs Recent Labs Lab 12/01/15 0411 11/29/15 2250 WBC 9.9 7.9 HGB 13.6 15.6 HCT 40.9 47.3* PLT 202 216 NEUPCT 86.9* 87.0* MONPCT 5.2 5.2 Recent Labs Lab 11/29/15 2320 PROTIME 14.4* INR 1.07 Recent Labs Lab 11/29/15 2320 PTT 31 Recent Labs Lab 12/01/15 0411 11/29/15 2250 GLU 161* 105 NA 141 138 K 4.0 3.5 CL 114* 108 CO2 22* 21* ANIONGAP 5 9 BUN 8 22* CREA 0.85 1.04 GFRNONAA >60 53* CALCIUM 8.0* 8.4 ALBUMIN -- 3.7 TOTALPROTEIN -- 6.0 BILITOT -- 0.7 ALKPHOS -- 75 ALT -- 20 AST -- 22 No results for input(s): BNP in the last 168 hours. Recent Labs Lab 12/01/15 0411 11/29/15 2250 MG 2.0 1.9 Recent Labs Lab 12/01/15 0411 11/29/15 2250 PHOS 2.1* 1.6* No results for input(s): AMYLASE, LIPASE in the last 168 hours. No results for input(s): AMMONIA in the last 168 hours. No results for input(s): CK, CKMB in the last 168 hours. Invalid input(s): TROPONINI, CKTOTAL No results for input(s): PHART, PO2ART, UTM5HKI, AZR3AAJ, BEART, Y5DETAMM in the last 168 h ours. No results for input(s): SPECSOURCE, PHPOCB, HCO3, TCO2, BEART, BE, [id number] in the last 16 8 hours. Invalid input(s): OUCUN7IH, NKME7XM Point of care glucose: No results for input(s): POCGLU in the last 168 hours. Serial weights: Filed Weights: 11/29/15 2230 11/30/15 0405 12/01/15 0414 Weight: 68.04 kg (150 lb) 68 kg (149 lb 14.6 oz) 69.7 kg (153 lb 10.6 oz) Most recent weight: Input and output for last 24hrs: Wt Readings from Last 1 Encounters: 12/01/15 69.7 kg (153 lb 10.6 oz) I/O last 24 Hours: In: 4428 [P.O.:1660; I.V.:2768] Out: 3900 [Urine:2950; Stool:950] I/O last 3 completed shifts: In: 5250 [P.O.:1660; I.V.:3590] Out: 3900 [Urine:2950; Stool:950] Vitals Ranges: Temp: [36.2 C (97.2 F)-36.7 C (98.1 F)] 36.3 C (97.3 F) Pulse: [68-78] 68 Resp: [14-17] 16 BP: (102-132)/(49-86) 127/58 mmHg Vitals: Temp: 36.3 C (97.3 F) BP: 127/58 mmHg Pulse: 68 Resp: 16 SpO2: 99 % SpO2 99 % on room air at flow rate L/min Subjective Patient is seen in follow-up this morning in [facility]. Patient was admitted yesterday morn ing with diarrhea since , feeling poor with fever and sinus tachycardia. Yesterday patient continued to have persistent diarrhea, however without any significant abdominal heath n and was able to tolerate advancement to full liquid diet. Patient states that she had alr michelle 3 watery stools since midnight and at this time doesn't think her diarrhea has slowed d own any. She denies any chest pain or shortness of breath or nausea. ROS See above Exam General alert, NAD mood and affect normal speech fluent Cardiac RRR no MRG Extremities no significant edema Lung clear to auscultation effort not labored Abdominal hyperactive bowel sounds, soft, nontender Assessment and Hospital Course Active Hospital Problems Diagnosis Gastroenteritis Bacterial UTI Adrenal insufficiency Hypothyroidism Hyperlipidemia Chronic kidney disease (CKD) Resolved Hospital Problems Diagnosis No resolved problems to display. Plan Gastroenteritis - Patient presented with abdominal pain and diarrhea after eating hamburgers cooked at home on Wednesday with cold meat chef also getting sick, but not . Patient was present with high-g rade fever and tachycardia. - At this point time cause of patient's gastroenteritis seems to be either bacterial or vir al, but based on positive lactoferrin and no evidence of E. coli, Shigella or C. diff and romeo wilsonnilson still has persistent diarrhea will do trial of Imodium as needed for diarrhea and will not add IV Flagyl yet to treat possible bacterial cause, unless diarrhea doesn't get better with imodium. - Continue with IV fluids, but since patient tolerating full liquid diet I will change flui ds over to normal saline at 100 ML's per hour. - Patient is on replacement for low phosphate with oral Phos twice daily with tonight being last dose. Phosphate is rising, but still not back to normal, hence will repeat another lev el in am. Bacterial UTI - Urine culture is growing staph bacteria, hence will order IV Rocephin until we get result s from culture as far as sensitivities and identification. - Continue with IV fluids Adrenal insufficiency - Patient is on chronic prednisone and was started on stress dose steroids with IV Hydrocor tisone. - patient is clinically doing better hence will decrease IV Hydrocortisone down to q12h. Hypothyroidism - c/w levothyroxine Hyperlipidemia - c/w statin Chronic kidney disease (CKD) - patient has underlying mild chronic renal insufficiency, stage 3 at baseline, but on pres entation she was dehydrated with mild ROSA. Improved now s/p IVF hydration. - repeat BMP in am. DISPOSITION: Downgrade to surgical or medical floor without telemetry. Time spent with the patient (of which more than 50% was in counseling and/or coordination t he patient's care as outlined above) was 30 minutes. Jez Pelaez DO 12/01/2015 11:46 [facility] Portions of this chart may have been created with [employer] voice recognition software. Occasi onal wrong-word or sound-alike substitutions may have occurred due to the inherent lópze itations of voice recognition software. Please read the chart carefully and recognize, using context, where these substitutions have occurred documented in this encounter H&P Notes Ifeanyi Romo MD - 11/30/2015 2:56 AM PDTFormatting of this note might be different fro m the original. [facility] HISTORY & PHYSICAL Patient: Oliva Vogt : 1950: Age: 65 y.o. 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 She follows with Dr. Antony Samaniego. Sh e felt well on Wednesday. There was some hamburger that had been in the refrigerator for ab out a week and a friend who is a cold meat chef came over and cooked Hamburgers and they ate them on W and apparently that cold meat chef later got sick as well as patient but patient's di d not get sick. Patient felt unwell on with some diarrhea and by Wednesday she felt " hard to move" but only mild abdominal pain and then she started running Wednesday night. She's had diarrhea but that it's not bloody nor black and no vomiting blood. She did not check h er temperature at home but was found to have a high fever in the ER as well as significant t achycardia. No dysuria nor hematuria. No rash or breast problem. Has glasses but not wear ing them. Hearing is okay and has her own teeth. No chest pain nor cough. No unusual foods but did have the hamburgers cooked up on Wednesday see above is with her. PAST MEDICAL and SURGICAL HISTORY: Past Medical History Diagnosis Date Guero syndrome [...] Bilateral Cyst removal Left 1970 Endometrial biopsy in 2006: benign. Skulll biopsy 09/28/2011 (Benign) Colonoscopy 03/12/2014 COLONOSCOPY; Laterality: N/A; Surgeon: Shaji Thornton MD; Location: [facility] Cholecystectomy FAMILY HISTORY: family history includes High blood pressure (age of onset: 84) in her mother; Lung cancer i n her brother, maternal grandfather, and sister; Other (see comment) (age of onset: 74) in h er father. SOCIAL HISTORY: reports that she has never smoked. She has never used smokeless tobacco. She reports that she does not drink alcohol or use illicit drugs. Habits neg X 4. REVIEW OF SYSTEMS: I did my usual 10 system ROS using: Constitutional, Eye, ENT, Cardiac, Respiratory, GI, , Musculoskeletal, Skin & Breast, Neurological. Also see notations in HPI. Remainder of 10 system ROS negative HOME MEDICATIONS: Previous Medications ATORVASTATIN (LIPITOR) 10 MG TABLET take 1 tablet by mouth NIGHTLY CALCIUM CARBONATE-VITAMIN D 600-125 MG-UNIT TABS Take by mouth Daily. CHOLECALCIFEROL (VITAMIN D-3) 1,000 UNITS TABLET Take 1,000 Units by mouth Daily. LEVOTHYROXINE (SYNTHROID, LEVOTHROID) 100 MCG TABLET Take 1 tablet by mouth every morni ng (before breakfast). PREDNISONE (DELTASONE) 5 MG TABLET Take 1 tablet by mouth Daily. (dot hmeds2 hmeds ptarxtaking) ALLERGIES: Allergies Allergen Reactions Succinylcholine Chloride Other (See Comments) Hard to wake up VITAL SIGNS: Temp: (!) 38.8 C (101.9 F), Pulse: 110, Resp: (!) 34, BP: 124/58 mmHg, SpO2 94 % on lianne m air at flow rate L/min Temp Min: 38.8 C (101.9 F) Max: 39.9 C (103.8 F) Weight: 68.04 kg (150 lb) PHYSICAL EXAMINATION: Constitutional Awake but sleepy, answers questions well Eye Pupils ER not wearing her glassess (are at home) came by 911 No conjunctivitis nor scleral icterus ENT Unremarkable oral ear and nose Neck No adenopathy, thyromegaly nor masses Lymph node exam Negative in the following areas: neck and epitrochlear Cardiac Car RRR with tachy no MRG LE edema none Lung Auscultation clear Respiratory effort not labored Percussion not done Abdomen + BS, Soft, trace non localizing tenderness, no HSM nor masses Psych Mood and affect looks sleepy Oriented to name, date (month, year) and place Neuro Face symmetric, tongue midline Neck is supple Skin very warm to touch (dot meyexam) DIAGNOSTIC STUDIES: Hematology and anemia Recent Labs Lab 11/29/15 2250 WBC 7.9 HGB 15.6 HCT 47.3* PLT 216 NEUPCT 87.0* MONPCT 5.2 Recent Labs Lab 11/29/15 2320 PROTIME 14.4* INR 1.07 PTT 31 No results for input(s): IRON, TIBC, PCTSAT, FERRITIN, TSH, EEXNOYCK52, FOLATE in the last 168 hours. Inflammatory markers Recent Labs Lab 11/29/15 2250 LACTATE 1.9 CRP 20.83* Chemistry Recent Labs Lab 11/29/15 2250 GLU 105 NA 138 K 3.5 CL 108 CO2 21* ANIONGAP 9 BUN 22* CREA 1.04 GFRNONAA 53* CALCIUM 8.4 ALBUMIN 3.7 TOTALPROTEIN 6.0 BILITOT 0.7 ALKPHOS 75 ALT 20 AST 22 Recent Labs Lab 11/29/15 2250 MG 1.9 PHOS 1.6* No results for input(s): AMYLASE, LIPASE in the last 168 hours. No results for input(s): TRIG, CHOL, HDL, LDL in the last 168 hours. No results for input(s): AMMONIA in the last 168 hours. Cardiology & Digoxin No results for input(s): TROPONIN, CK, CKMB, BNP, DIGOXIN in the last 168 hours. Invalid input(s): CKTOTAL ABG No results for input(s): PHART, PO2ART, RJU8OYX, FBF1XKI, BEART, [id number] in the last 168 h ours. No results for input(s): SPECSOURCE, PHPOCB, PCO2, PO2, HCO3, TCO2, BEART, [id number] in the last 168 hours. Drug of overdose and abuse No results for input(s): ALCOHOL, ACTMN, SALICYLATE in the last 168 hours. No results for input(s): AMPHEQUAL, BARBITURATE, BENZSCR, CANNIBSCR, AMPHETAMINE, METHADSCR , OPIATESCR in the last 168 hours. Urinalysis Recent Labs Lab 11/30/1536 GLUCOSEU Negative WBCUA 2-5* RBCUA 0-2 SQUAMEPIUA 10-15* BACTERIAUA Negative Micro results (more choices using dotmicro) Microbiology Results (72 hrs) Procedure Component Value Units Date/Time Culture, Stool [[id number]] Collected: 11/30/1553 Order Status: Sent Lab Status: In process Updated: 11/30/1553 Specimen Information: Stool from Stool Narrative: The following orders were created for panel order Culture, Stool. Procedure Abnormality Status --------- ------ Shigatoxin 1 and 2[[id number]] In process Culture, Stool Result[[id number]] In process Campylobacter Ag,Qual[[id number]] In process Please view results for these tests on the individual orders. Shigatoxin 1 and 2 [[id number]] Collected: 11/30/1553 Order Status: Sent Lab Status: In process Updated: 11/30/1553 Specimen Information: Stool from Stool Culture, Stool Result [[id number]] Collected: 11/30/1553 Order Status: Sent Lab Status: In process Updated: 11/30/1553 Specimen Information: Stool from Stool Campylobacter Ag,Qual [[id number]] Collected: 11/30/1553 Order Status: Sent Lab Status: In process Updated: 11/30/1553 Specimen Information: Stool from Stool Fecal leukocytes [[id number]] (Abnormal) Collected: 11/30/1544 Order Status: Completed Lab Status: Final result Updated: 11/30/15 0116 Specimen Information: Stool from Stool Lactoferrin, Qual Positive (A) Clostridium difficile A and B EIA [[id number]] Collected: 11/30/1544 Order Status: Sent Lab Status: In process Updated: 11/30/15 0054 Specimen Information: Stool from Stool Culture, Urine [[id number]] Collected: 11/30/15 003 Order Status: Sent Lab Status: In process Updated: 11/30/1540 Specimen Information: Urine from Urine, Void Culture, Blood [[id number]] Collected: 11/29/152318 Order Status: Sent Lab Status: In process Updated: 11/29/152326 Specimen Information: Blood from Peripheral Blood Culture, Blood [[id number]] Collected: 11/29/152309 Order Status: Sent Lab Status: In process Updated: 11/29/152309 Specimen Information: Blood from Peripheral Blood Radiology results (more choices using dotrisresults) Ct Abdomen Pelvis W Contrast 11/30/2015 DISCLAIMER: This is a preliminary report provided by [facility] MELONIE Thorpe. A final report is available at [facility]. CT ABDOMEN AND PELVIS WITH CONTRAST CLINICAL INFORMATION: Fever and vomiting. COMPARISON: CHOLANGI OGRAM IN OR 1ST SET dated 01/05/2007 PROCEDURE: Axial images through the abdomen and pelvis after the administration of 85 ml Omnipaque 350 intravenous contrast. Multiplanar reconstruc tions. At least one of the following CT dose optimization techniques were used: Automated exposure control; Adjustment of mA and/or kV according to patient size; Use of iterative rec onstruction technique. FINDINGS: See below. IMPRESSION: 1. Fluid-filled and mildly dilat ed small bowel. Fluid-filled normal caliber colon. No evidence of obstruction, inflammatio n or perforation. Findings may be seen in the setting of an enteritis or ileus. 2. Normal a ppendix. 3. Prior cholecystectomy. Mildly prominent postoperative biliary ducts. 4. Promine nt bilateral parapelvic renal cysts. No evidence of renal obstruction. 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 too (but not of paris wray) do not see indication yet for abxs and she came in with high fever and tachy better wi th Rx but needs to be in stepdown Adrenal insufficiency Got stress dose Decadron in ER, 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 Electronically signed by: Ifeanyi Romo MD 11/30/2015 2:56 [facility] Portions of this chart may have been created with [employer] voice recognition software. Occasi onal wrong-word or sound-alike substitutions may have occurred due to the inherent lópez itations of voice recognition software. Please read the chart carefully and recognize, using context, where these substitutions have occurred documented in this en counter ED Notes Jake Powell MD - 11/29/2015 10:39 PM PDTFormatting of this note might be different fro m the original. eMERGENCY dEPARTMENT eNCOUnter CHIEF COMPLAINT Chief Complaint Patient presents with Fever (9 Weeks To 74 Years) Emesis HPI Oliva Vogt is a 65 y.o. female who presents complaining of nausea, vomiting, diar alfonso, lightheadedness, and fever since around 2 p.m. today. He denies any hematemesis or hem atochezia. Denies any abdominal pain. Brought in by EMS with fever of 103 prior to arrival. She has not taken any antipyretics today. PAST MEDICAL HISTORY Past Medical History Diagnosis Date Guero [...] Dupuytren's without contractures. Adrenal insufficiency (HCC) 05/16/2012 SURGICAL HISTORY Past Surgical History Procedure Laterality Date Tubal ligation Bilateral Cyst removal Left 1970 Endometrial biopsy in 2006: benign. Skulll biopsy 09/28/2011 (Benign) Colonoscopy 03/12/2014 COLONOSCOPY; Laterality: N/A; Surgeon: Shaji Thornton MD; Location: [facility] Cholecystectomy CURRENT MEDICATIONS Current Discharge Medication List CONTINUE these medications which have NOT CHANGED Details atorvaSTATin (LIPITOR) 10 mg tablet take 1 tablet by mouth NIGHTLY Qty: 90 tablet, Refills: 2 Calcium Carbonate-Vitamin D 600-125 MG-UNIT TABS Take by mouth Daily. cholecalciferol (VITAMIN D-3) 1,000 units tablet Take 1,000 Units by mouth Daily. levothyroxine (SYNTHROID, LEVOTHROID) 100 mcg tablet Take 1 tablet by mouth every morning ( before breakfast). Qty: 90 tablet, Refills: 3 predniSONE (DELTASONE) 5 mg tablet Take 1 tablet by mouth Daily. Qty: 90 tablet, Refills: 3 ALLERGIES Allergies Allergen Reactions Succinylcholine Chloride Other (See Comments) Hard to wake up FAMILY HISTORY Family History Problem Relation Age of Onset High blood pressure Mother 84 of Aortic dissection Other (see comment) Father 74 of hemorrgagic CVA Lung cancer Maternal Grandfather Lung cancer Brother Lung cancer Sister SOCIAL HISTORY History Social History Marital Status: Spouse Name: N/A Number of Children: N/A Years of Education: N/A Social History Main Topics Smoking status: Never Smoker Smokeless tobacco: Never Used Alcohol Use: No Drug Use: No Sexual Activity: Not on file Other Topics Concern None Social History Narrative 43rd wedding anniversary was 03/20/2011 which is a big deal because her has been s o ill. REVIEW OF SYSTEMS A 12 system review of systems is otherwise negative except as noted in the HPI above. PHYSICAL EXAM VITAL SIGNS: (first vital signs):Temp: (!) 39.9 C (103.8 F) Pulse: 119 Resp: 20 SpO2: 9 7 % BP: 161/80 mmHg Constitutional: Well developed, Well nourished, No acute distress, Non-toxic appearance. HENT: Normocephalic, Atraumatic, Bilateral external ears normal, Oral mucosa moist, orchid transplanter ior pharynx no exudates, Nose normal. Neck-supple, nontender, no meningismus, No stridor. Eyes: PERRL, EOMI, Conjunctiva normal, No discharge. Respiratory: Breath sounds equal bilaterally, no adventitious sounds, No chest wall tender ness. Cardiovascular: Normal rate, normal S1, S2, no murmurs, rubs, or gallops GI: Abdomen soft, non-tender, non-distended, normal bowel sounds, no CVA tenderness : Musculoskeletal: Intact distal pulses, No edema, No tenderness, No cyanosis. Good range of motion in all major joints. No tenderness to palpation or major deformities noted. Back- No tenderness. Skin: Warm, Dry, No erythema, No rash or lesions. Lymphatic: Neurologic: Alert & oriented x 3, Cranial nerves II-XII intact, Normal sensation, motor, a nd strength in all four extremities, No focal deficits noted. Psychiatric: Affect normal, Judgment normal, Mood normal. Labs Reviewed FECAL LEUKOCYTES - Abnormal; Notable for the following: Lactoferrin, Qual Positive (*) All other components within normal limits CBC WITH DIFFERENTIAL - Abnormal; Notable for the following: RBC 5.31 (*) Hct 47.3 (*) % Neutrophils 87.0 (*) % Lymphocytes 7.2 (*) All other components within normal limits COMPREHENSIVE METABOLIC PANEL - Abnormal; Notable for the following: CO2 21 (*) BUN 22 (*) eGFR if not 53 (*) All other components within normal limits C-REACTIVE PROTEIN - Abnormal; Notable for the following: CRP 20.83 (*) All other components within normal limits PHOSPHORUS - Abnormal; Notable for the following: PHOSPHORUS 1.6 (*) All other components within normal limits PROTIME INR - Abnormal; Notable for the following: PROTIME 14.4 (*) All other components within normal limits URINALYSIS WITH MICROSCOPIC - Abnormal; Notable for the following: CLARITY Hazy (*) LEUKOCYTES ESTERASE UA Moderate (*) WBC UA 2-5 (*) SQUAMOUS EPITHELIAL UA 10-15 (*) BUDDING YEAST UA Few (*) MUCUS UA Present (*) All other components within normal limits POCT OCCULT BLOOD STOOL, OTHER THAN COLORECTAL NEOPLASM SCREENING - Abnormal; Notable for t he following: POCT STOOL OCCULT BLOOD X1 Positive (*) All other components within normal limits LACTIC ACID - Normal MAGNESIUM - Normal PTT - Normal CULTURE, BLOOD CULTURE, BLOOD CULTURE, URINE CULTURE, RESPIRATORY, LOWER, SMEAR CULTURE, STOOL Narrative: The following orders were created for panel order Culture, Stool. Procedure Abnormality Status --------- ------ Shigatoxin 1 and 2[[id number]] In process Culture, Stool Result[[id number]] In process Campylobacter Ag,Qual[[id number]] In process Please view results for these tests on the individual orders. SHIGATOXIN 1 AND 2 CULTURE, STOOL RESULT CAMPYLOBACTER AG,QUAL CLOSTRIDIUM DIFFICILE A AND B EIA CULTURE, MRSA EXTRA GREEN TOP TUBE EXTRA GOLD TOP TUBE EXTRA BLUE TOP TUBE EXTRA GREEN TOP TUBE RADIOLOGY CT Results: Ct Abdomen Pelvis W Contrast 11/30/2015 DISCLAIMER: This is a preliminary report provided by [facility] MELONIE Thorpe. A final report is available at [facility]. CT ABDOMEN AND PELVIS WITH CONTRAST CLINICAL INFORMATION: Fever and vomiting. COMPARISON: CHOLANGI OGRAM IN OR 1ST SET dated 01/05/2007 PROCEDURE: Axial images through the abdomen and pelvis after the administration of 85 ml Omnipaque 350 intravenous contrast. Multiplanar reconstruc tions. At least one of the following CT dose optimization techniques were used: Automated exposure control; Adjustment of mA and/or kV according to patient size; Use of iterative rec onstruction technique. FINDINGS: See below. IMPRESSION: 1. Fluid-filled and mildly dilat ed small bowel. Fluid-filled normal caliber colon. No evidence of obstruction, inflammatio n or perforation. Findings may be seen in the setting of an enteritis or ileus. 2. Normal a ppendix. 3. Prior cholecystectomy. Mildly prominent postoperative biliary ducts. 4. Promine nt bilateral parapelvic renal cysts. No evidence of renal obstruction. Dictated by: Michael Heard Signed by: Michael Heard Report sent: 11/30/2015 1:53:00 AM ED COURSE & MEDICAL DECISION MAKING Pertinent Labs & Imaging studies reviewed. (See chart for details) Patient presents with gastroenteritis symptoms as well as systemic inflammatory response sy ndrome. She is febrile and tachycardic. Stool studies are significant for positive lactoferr in and positive occult blood. Urinalysis does not show any signs of infection. Chest x-ray w as unremarkable. CT imaging showed fluid filled and mildly dilated small bowel as well as fl uid-filled normal caliber colon. No evidence of obstruction, inflammation, or perforation. P atient was given IV fluid as well as acetaminophen and Zofran. She was given stress dose of dexamethasone given her chronic prednisone usage. Patient will be admitted for further inpat ient management given her systemic inflammatory response and persistent mild tachycardia and fevers. IV antibiotics have not been initiated until stool studies which are pending at thi s time, are returned. Last Set of Vital Signs: Temp: (!) 38.6 C (101.5 F) Pulse: 109 Resp: 19 SpO2: 95 % BP: 122/67 mmHg FINAL IMPRESSION 1. Gastroenteritis 2. Sepsis, due to unspecified organism (HCC) 3. Adrenal insufficiency (HCC) PLAN inpatient management Current Discharge Medication List Jake Powell MD 11/30/15 0412 document ed in this encounter Miscellaneous Notes Plan of Care - Sumit Carrillo Chaplain - 12/02/2015 12:43 PM PDTProblem: Spiritual Dist ress, Risk/Actual (Adult,Obstetrics,Pediatric) Goal: Spiritual Well-being Patient will demonstrate the desired outcomes by discharge/transition of care. Spiritual Care Oliva Vogt is a 65 y.o. female who is admitted for Adrenal insufficiency (HCC) [E 27.40] Gastroenteritis [K52.9] Sepsis, due to unspecified organism (HCC) [A41.9]. Spiritual Evaluation: Patient was sitting up in bed eating her lunch and her sat at her bedside for encouragement and emotional support. She stated she was doing a little bett er today and she felt like she was improving. Overall she appreciated her care and was grate ful for her and son's support. Patient is [facility] and I wished her good health. Spiritual Intervention: Patient welcomed vehicle service attendant visit and I wished her good health. Spiritual Outcomes: Patient thank me for the visit. Spiritual Goals/Follow up: Health Technician will continue to provide ongoing emotional/spiritual support for patient as requested. lan of Xi Grady - 12/02/2015 10:22 AM PDTDC Planning: This FARMWORKER FRUIT spoke with Oliva at her bedside regarding her discharge plans. Oliva Lives in [place] with her spouse Titus. There are two steps to enter her home with no hand rails. No stairs inside the home. Prior to admission Oliva was independent in her ADL's and still drives. Oliva does not own or use any DME and does not have a preference for DME company. Dr. Samaniego is her PCP and she uses [facility]. Declines SNF and . Oliva has two son's, Rob is here visiting from [place] and Cristofer lives in [place] . One of them will be her ride home when she is stable for discharge. Electronically signed by: Xi Fontana 12/02/2015 10:31 lan of Care - Yesenia Pierre RN - 12/02/2015 7:55 AM PDTProblem: Patient Care Overview (Adult) Goal: Care Team Goals & Evaluation PROBLEM-RELATED GOALS: 1.) Oliva will have normal bowel function as evidenced by, bowel tones to all four quadrant s, absences of N/V & formed stool by 12/03/2015. 2.) Oliva s skin will remain intact, as evidenced by no redness over bony prominences and capillary refill less than 6 seconds over areas of redness 12/03/2015. 3.) Oliva be free of falls by 12/03/2015. STRATEGY TO ACHIEVE GOALS: Assess bowel tones every four hours and PRN. Encourage adequate fluid intake. Advance food texture as stool forms. Use non-skid foot wear when transferring and ambulating. Call staff to get out of bed. Use assistive device as needed for ambulation. Monitor vitals signs, I&O s, lab values and celeste gnostic testing for signs of infection/treatment of infection. Outcome: Improving Goal Evaluation: 1. Pt with diarrhea stool x1 this shift, hyperactive BTs x4, denies nausea, no emesis, diet adjusted to be free of dairy per her request as dairy is causing her abdominal discomfort 2. Skin intact, no areas of breakdown noted, pt ambulating ambulating in room frequently 3. No falls, pt. Steady, independent in the room lan of Katie - Semaj Bennett RN - 12/01/2015 7:25 PM PDTProblem: Patient Care Overview (Adult) Goal: Care Team Goals & Evaluation PROBLEM-RELATED GOALS: 1.) Oliva will have normal bowel function as evidenced by, bowel tones to all four quadrant s, absences of N/V & formed stool by 12/03/2015. 2.) Oliva s skin will remain intact, as evidenced by no redness over bony prominences and capillary refill less than 6 seconds over areas of redness 12/03/2015. 3.) Oliva be free of falls by 12/03/2015. STRATEGY TO ACHIEVE GOALS: Assess bowel tones every four hours and PRN. Encourage adequate fluid intake. Advance food texture as stool forms. Use non-skid foot wear when transferring and ambulating. Call staff to get out of bed. Use assistive device as needed for ambulation. Monitor vitals signs, I&O s, lab values and celeste gnostic testing for signs of infection/treatment of infection. Outcome: Improving Goal Evaluation: Oliva transferred from ICU, still has loose stool, appetite returning, no nausea or pain, SBA to bathroom, calls appropriately and makes needs known. eICU Note - Miroslava Felix RN - 12/01/2015 2:26 PM PDTSBAR report called to Gayla RNElectronically sig lesley by Miroslava Felix RN at 12/01/2015 2:26 PM PDTPlan of Katie - Sarah Schmitz RN - 11/06 7:22 PM PDTProblem: Patient Care Overview (Adult) Goal: Care Team Goals & Evaluation PROBLEM-RELATED GOALS: 1.) Oliva will have normal bowel function as evidenced by, bowel tones to all four quadrant s, absences of N/V & formed stool by 12/03/2015. 2.) Oliva s skin will remain intact, as evidenced by no redness over bony prominences and capillary refill less than 6 seconds over areas of redness 12/03/2015. 3.) Oliva be free of falls by 12/03/2015. STRATEGY TO ACHIEVE GOALS: Assess bowel tones every four hours and PRN. Encourage adequate fluid intake. Advance food texture as stool forms. Use non-skid foot wear when transferring and ambulating. Call staff to get out of bed. Use assistive device as needed for ambulation. Monitor vitals signs, I&O s, lab values and celeste gnostic testing for signs of infection/treatment of infection. Outcome: Improving Goal Evaluation: Afebrile all shift, alert and oriented. Has had 4 small loose dow BM's this shift. Denies abdominal pain or nausea. Up ambulating in wilkins times one, tolerated well. lan of Care - Lynne Wong RN - 11/30/2015 7:39 AM PDTProblem: Patient Care Overview (Adult) Goal: Care Team Goals & Evaluation PROBLEM-RELATED GOALS: 1.) Oliva will have normal bowel function as evidenced by, bowel tones to all four quadrant s, absences of N/V & formed stool by 12/03/2015. 2.) Oliva s skin will remain intact, as evidenced by no redness over bony prominences and capillary refill less than 6 seconds over areas of redness 12/03/2015. 3.) Oliva be free of falls by 12/03/2015. STRATEGY TO ACHIEVE GOALS: Assess bowel tones every four hours and PRN. Encourage adequate fluid intake. Advance food texture as stool forms. Use non-skid foot wear when transferring and ambulating. Call staff to get out of bed. Use assistive device as needed for ambulation. Monitor vitals signs, I&O s, lab values and celeste gnostic testing for signs of infection/treatment of infection. Outcome: Improving Goal Evaluation: PT is A&O X 4, lethargic. Vital signs stable. Lung sounds clear, RA. BT X 4. No C/O N/V. Lo ose, watery stool X 1. Fluids encouraged. Spouse at bedside. D Triage Notes - Rajni Ugalde RN - 11/29/2015 10:29 PM PDTPatient arrives by ambulance from home f or nausea, vomiting (four episodes), diarrhea, and fever with sudden onset this afternoon. She states she first started feeling slightly ill last night. Pt states she has had several "bugs" like this in the past. Pt states she thinks this may be food poisoning due to some hamburger she ate two days ago. She also reports some minor abdominal pain.Electronically s igned by Rajni Ugalde RN at 11/30/2015 3:33 AM PDTdocumented in this encounter Plan of Treatment +--------+---------+ + + + | Date | Type | Specialty | Care Team | Description | +--------+---------+ + + + | 04/29/ | Office | Internal Medicine | Abrahan Samaniego MD | | | 2019 | Visit | | [address] [place] [address] | | | | | | [place] | | | | | | [phone] | | | | | | | | +--------+---------+ + + + | 07/25/ | Office | Cardiology | [place] | | | 2020 | Visit | | [facility] [address] | | | | | [address] [place], | | | | | | [place] [address] | | | | | | [phone] | | | | | | | [...] | + +--------+ + + + | POTASSIUM | Routin | 12/02/2015 | | Results for this | | | e | 11:43 AM | | procedure are in the | | | | PDT | | results section. | + +--------+ + + + | CBC WITH | Routin | 12/02/2015 | | Results for this | | DIFFERENTIAL | e | 4:25 AM | | procedure are in the | | | | PDT | | results section. | + +--------+ + + + | PHOSPHORUS | Routin | 12/02/2015 | | Results for this | | | e | 4:25 AM | | procedure are in the | | | | PDT | | results section. | + +--------+ + + + | MAGNESIUM | Add-On | 12/02/2015 | | Results for this | | | | 4:25 AM | | procedure are in the | | | | PDT | | results section. | + +--------+ + + + | BASIC METABOLIC | Routin | 12/02/2015 | | Results for this | | PANEL | e | 4:25 AM | | procedure are in the | | | | PDT | | results section. | + +--------+ + + + | CBC WITH | Routin | 12/01/2015 | | Results for this | | DIFFERENTIAL | e | 4:11 AM | | procedure are in the | | | | PDT | | results section. | + +--------+ + + + | PHOSPHORUS | Routin | 12/01/2015 | | Results for this | | | e | 4:11 AM | | procedure are in the | | | | PDT | | results section. | + +--------+ + + + | MAGNESIUM | Routin | 12/01/2015 | | Results for this | | | e | 4:11 AM | | procedure are in the | | | | PDT | | results section. | + +--------+ + + + | BASIC METABOLIC | Routin | 12/01/2015 | | Results for this | | PANEL | e | 4:11 AM | | procedure are in the | | | | PDT | | results section. | + +--------+ + + + | CULTURE, MRSA | Routin | 11/30/2015 | | Results for this | | | e | 4:08 AM | | procedure are in the | | | | PDT | | results section. | + +--------+ + + + | CT ABDOMEN PELVIS W | STAT | 11/30/2015 | | Results for this | | CONTRAST | | 1:30 AM | | procedure are in the | | | | PDT | | results section. | + +--------+ + + + | CAMPYLOBACTER | STAT | 11/30/2015 | | Results for this | | AG,QUAL | | 12:54 AM | | procedure are in the | | | | PDT | | results section. | + +--------+ + + + | CULTURE, STOOL | STAT | 11/30/2015 | | Results for this | | RESULT | | 12:54 AM | | procedure are in the | | | | PDT | | results section. | + +--------+ + + + | SHIGATOXIN 1 AND 2 | STAT | 11/30/2015 | | Results for this | | | | 12:54 AM | | procedure are in the | | | | PDT | | results section. | + +--------+ + + + | CULTURE, STOOL | STAT | 11/30/2015 | | Results for this | | | | 12:54 AM | | procedure are in the | | | | PDT | | results section. | + +--------+ + + + | POCT OCCULT BLOOD | STAT | 11/30/2015 | | Results for this | | STOOL, OTHER THAN | | 12:52 AM | | procedure are in the | | COLORECTAL NEOPLASM | | PDT | | results section. | | SCREENING | | | | | + +--------+ + + + | FECAL LEUKOCYTES | STAT | 11/30/2015 | | Results for this | | | | 12:45 AM | | procedure are in the | | | | PDT | | results section. | + +--------+ + + + | CLOSTRIDIUM | Routin | 11/30/2015 | | Results for this | | DIFFICILE A AND B | e | 12:45 AM | | procedure are in the | | EIA | | PDT | | results section. | + +--------+ + + + | URINALYSIS WITH | STAT | 11/30/2015 | | Results for this | | MICROSCOPIC | | 12:37 AM | | procedure are in the | | | | PDT | | results section. | + +--------+ + + + | CULTURE, URINE | STAT | 11/30/2015 | | Results for this | | | | 12:37 AM | | procedure are in the | | | | PDT | | results section. | + +--------+ + + + | XR CHEST AP PORTABLE | STAT | 11/29/2015 | | Results for this | | | | 11:52 PM | | procedure are in the | | | | PDT | | results section. | + +--------+ + + + | EXTRA GREEN TOP TUBE | Routin | 11/29/2015 | | Results for this | | | e | 11:20 PM | | procedure are in the | | | | PDT | | results section. | + +--------+ + + + | PTT | STAT | 11/29/2015 | | Results for this | | | | 11:20 PM | | procedure are in the | | | | PDT | | results section. | + +--------+ + + + | PROTIME INR | STAT | 11/29/2015 | | Results for this | | | | 11:20 PM | | procedure are in the | | | | PDT | | results section. | + +--------+ + + + | CULTURE, BLOOD | STAT | 11/29/2015 | | Results for this | | | | 11:19 PM | | procedure are in the | | | | PDT | | results section. | + +--------+ + + + | CULTURE, BLOOD | STAT | 11/29/2015 | | Results for this | | | | 11:10 PM | | procedure are in the | | | | PDT | | results section. | + +--------+ + + + | EXTRA GREEN TOP TUBE | Routin | 11/29/2015 | | Results for this | | | e | 10:51 PM | | procedure are in the | | | | PDT | | results section. | + +--------+ + + + | EXTRA GOLD TOP TUBE | Routin | 11/29/2015 | | Results for this | | | e | 10:51 PM | | procedure are in the | | | | PDT | | results section. | + +--------+ + + + | EXTRA BLUE TOP TUBE | Routin | 11/29/2015 | | Results for this | | | e | 10:51 PM | | procedure are in the | | | | PDT | | results section. | + +--------+ + + + | CBC WITH | STAT | 11/29/2015 | | Results for this | | DIFFERENTIAL | | 10:50 PM | | procedure are in the | | | | PDT | | results section. | + +--------+ + + + | C-REACTIVE PROTEIN | STAT | 11/29/2015 | | Results for this | | | | 10:50 PM | | procedure are in the | | | | PDT | | results section. | + +--------+ + + + | PHOSPHORUS | STAT | 11/29/2015 | | Results for this | | | | 10:50 PM | | procedure are in the | | | | PDT | | results section. | + +--------+ + + + | MAGNESIUM | STAT | 11/29/2015 | | Results for this | | | | 10:50 PM | | procedure are in the | | | | PDT | | results section. | + +--------+ + + + | LACTIC ACID | STAT | 11/29/2015 | | Results for this | | | | 10:50 PM | | procedure are in the | | | | PDT | | results section. | + +--------+ + + + | COMPREHENSIVE | STAT | 11/29/2015 | | Results for this | | METABOLIC PANEL | | 10:50 PM | | procedure are in the | | | | PDT | | results section. | + +--------+ + + + documented in this encounter Results Potassium (12/02/2015 11:43 AM PDT) + +---------+ + + + | Component | Value | Ref Range | Performed | Pathologist | | | | | At | Signature | + +---------+ + + + | K | 3.4 (L) | 3.5 - 5.1 | [facility] [...] [address] | [place] | [phone] | | [facility] | | [address] | | | - LABORATORY | | | | + + + + + Magnesium (12/02/2015 4:25 AM PDT) + +-------+ + + + | Component | Value | Ref Range | Performed | Pathologist | | | | | At | Signature | + +-------+ + + + | Magnesium | 1.9 | 1.8 - 2.5 mg/dL | [facility] | | | | [...] [address] | [place] | [phone] | | [facility] | | [address] | | | - LABORATORY | | | | + + + + + Phosphorus (12/02/2015 4:25 AM PDT) + +-------+ + + + | Component | Value | Ref Range | Performed | Pathologist | | | | | At | Signature | + +-------+ + + + | Phosphorus | 3.1 | 2.5 - 4.6 mg/dL | [facility] | | | | [...] + | [facility] | [address] | [place] | [phone] | | [facility] | | [address] | | | - LABORATORY | | | | + + + + + CBC with Differential (12/02/2015 4:25 AM PDT) + + + + + + | Component | Value | Ref Range | Performed | Pathologist | | | | | At | Signature | + + + + + + | White Blood | 10.7 | 4.0 - 11.0 K/uL | [facility] | | | Cells | | | [facility] | | | | | | MEDICAL | | | | | | CENTER - | | | | | | LABORATORY | | + + + + + + | Red Blood | 4.51 | 3.70 - 5.20 | [facility] | | | Cells | | M/uL | [facility] | | | | | | MEDICAL | | | | | | CENTER - | | | | | | LABORATORY | | + + + + + + | Hemoglobin | 13.2 | 11.5 - 16.0 | [facility] | | | | | g/dL | [facility] | | | | | | MEDICAL | | | | | | CENTER - | | | | | | LABORATORY | | + + + + + + | Hematocrit | 40.1 | 34.0 - 47.0 % | [facility] | | | | | | [facility] | | | | | | MEDICAL | | | | | | CENTER - | | | | | | LABORATORY | | + + + + + + | MCV | 88.9 | 83.0 - 101.0 fL | [facility] | | | | | | [facility] | | | | | | MEDICAL | | | | | | CENTER - | | | | | | LABORATORY | | + + + + + + | MCH | 29.2 | 28.0 - 35.0 pg | [facility] | | | | | | [facility] | | | | | | MEDICAL | | | | | | CENTER - | | | | | | LABORATORY | | + + + + + + | MCHC | 32.9 | 32.0 - 36.0 | [facility] | | | | | g/dL | [facility] | | | | | | MEDICAL | | | | | | CENTER - | | | | | | LABORATORY | | + + + + + + | RDW-CV | 13.6 | <15.0 % | [facility] | | | | | | [facility] | | | | | | MEDICAL | | | | | | CENTER - | | | | | | LABORATORY | | + + + + + + | Platelet | 214 | 140 - 440 K/uL | [facility] | | | Count | | | [facility] | | | | | | MEDICAL | | | | | | CENTER - | | | | | | LABORATORY | | + + + + + + | MPV | 8.4 | fL | [facility] | | | | | | [facility] | | | | | | MEDICAL | | | | | | CENTER - | | | | | | LABORATORY | | + + + + + + | % | 82.0 | 45.0 - 82.0 % | [facility] | | | Neutrophils | | | [facility] | | | | | | MEDICAL | | | | | | CENTER - | | | | | | LABORATORY | | + + + + + + | % | 11.6 (L) | 20.0 - 45.0 % | [facility] | | | Lymphocytes | | | [facility] | | | | | | MEDICAL | | | | | | CENTER - | | | | | | LABORATORY | | + + + + + + | % Monocytes | 6.3 | 4.0 - 12.0 % | [facility] | | | | | | [facility] | | | | | | MEDICAL | | | | | | CENTER - | | | | | | LABORATORY | | + + + + + + | % | 0.0 | 0.0 - 5.0 % | [facility] | | | Eosinophils | | | [facility] | | | | | | MEDICAL | | | | | | CENTER - | | | | | | LABORATORY | | + + + + + + | % Basophils | 0.1 | 0.0 - 1.0 % | [facility] | | | | | | [facility] | | | | | | MEDICAL | | | | | | CENTER - | | | | | | LABORATORY | | + + + + + + | Absolute | 8.80 (H) | 1.80 - 8.50 | [facility] | | | Neutrophils | | K/uL | [facility] | | | | | | MEDICAL | | | | | | CENTER - | | | | | | LABORATORY | | + + + + + + | Absolute | 1.20 | 0.60 - 3.20 | [facility] | | | Lymphocytes | | K/uL | [facility] | | | | | | MEDICAL | | | | | | CENTER - | | | | | | LABORATORY | | + + + + + + | Absolute | 0.70 | 0.00 - 1.00 | [facility] | | | Monocytes | | K/uL | [facility] | | | | | | MEDICAL | | | | | | CENTER - | | | | | | LABORATORY | | + + + + + + | Absolute | 0.00 | 0.00 - 0.40 | [facility] | [...] [address] | [place] | [phone] | | [facility] | | [address] | | | - LABORATORY | | | | + + + + + Basic Metabolic Panel (12/02/2015 4:25 AM PDT) + + + + + [...] + + + + | K | 3.2 (L) | 3.5 - 5.1 | [facility] | | | | | mmol/L | [facility] | | | | | | MEDICAL | | | | | | CENTER - | | | | | | LABORATORY | | + + + + + + | Cl | 114 (H) | 98 - 109 mmol/L | [facility] | | | | | | [facility] | | | | | | MEDICAL | | | | | | CENTER - | | | | | | LABORATORY | | + + + + + + | CO2 | 23 (L) | 24 - 31 mmol/L | [facility] [...] + + + + | Glucose | 126 (H) | 70 - 109 mg/dL | [facility] | | | | | | [facility] | | | | | | MEDICAL | | | | | | CENTER - | | | | | | LABORATORY | | + + + + + + | BUN | 8 | 7 - 18 mg/dL | [facility] | | | | | | [facility] | | | | | | MEDICAL | | | | | | CENTER - | | | | | | LABORATORY | | + + + + + + | Creatinine | 0.89 | 0.60 - 1.30 | [facility] | [...] mL/min/1.73m2 | [facility] | | | [place] | RATE,ESTIMATED | | MEDICAL | | | | mL/min/1.18x7Acay than | | CENTER - | | [...] + + + + | Calcium | 8.2 (L) | 8.3 - 10.5 | [facility] | | | | | mg/dL | [facility] | | | | | | MEDICAL | | | | | | CENTER - | | | | | | LABORATORY | | + + + + + + | BUN/Creatin | 9.0 | | [facility] | | | ine Ratio | | | [facility] | | [...] [address] | [place] | [phone] | | [facility] | | [address] | | | - LABORATORY | | | | + + + + + Phosphorus (12/01/2015 4:11 AM PDT) + +---------+ + + + | Component | Value | Ref Range | Performed | Pathologist | | | | | At | Signature | + +---------+ + + + | Phosphorus | 2.1 (L) | 2.5 - 4.6 mg/dL | [facility] | | | | [...] + | [facility] | [address] | [place] | [phone] | | [facility] | | [address] | | | - LABORATORY | | | | + + + + + CBC with Differential (12/01/2015 4:11 AM PDT) + + + + + + | Component | Value | Ref Range | Performed | Pathologist | | | | | At | Signature | + + + + + + | White Blood | 9.9 | 4.0 - 11.0 K/uL | [facility] | | | Cells | | | [facility] | | | | | | MEDICAL | | | | | | CENTER - | | | | | | LABORATORY | | + + + + + + | Red Blood | 4.58 | 3.70 - 5.20 | [facility] | | | Cells | | M/uL | [facility] | | | | | | MEDICAL | | | | | | CENTER - | | | | | | LABORATORY | | + + + + + + | Hemoglobin | 13.6 | 11.5 - 16.0 | [facility] | | | | | g/dL | [facility] | | | | | | MEDICAL | | | | | | CENTER - | | | | | | LABORATORY | | + + + + + + | Hematocrit | 40.9 | 34.0 - 47.0 % | [facility] | | | | | | [facility] | | | | | | MEDICAL | | | | | | CENTER - | | | | | | LABORATORY | | + + + + + + | MCV | 89.4 | 83.0 - 101.0 fL | [facility] | | | | | | [facility] | | | | | | MEDICAL | | | | | | CENTER - | | | | | | LABORATORY | | + + + + + + | MCH | 29.7 | 28.0 - 35.0 pg | [facility] [...] + + + + | RDW-CV | 13.6 | <15.0 % | [facility] | | | | | | [facility] | | | | | | MEDICAL | | | | | | CENTER - | | | | | | LABORATORY | | + + + + + + | Platelet | 202 | 140 - 440 K/uL | [facility] | | | Count | | | [facility] | | | | | | MEDICAL | | | | | | CENTER - | | | | | | LABORATORY | | + + + + + + | MPV | 8.2 | fL | [facility] | | | | | | [facility] | | | | | | MEDICAL | | | | | | CENTER - | | | | | | LABORATORY | | + + + + + + | % | 86.9 (H) | 45.0 - 82.0 % | [facility] | | | Neutrophils | | | [facility] | | | | | | MEDICAL | | | | | | CENTER - | | | | | | LABORATORY | | + + + + + + | % | 7.9 (L) | 20.0 - 45.0 % | [facility] | | | Lymphocytes | | | [facility] | | | | | | MEDICAL | | | | | | CENTER - | | | | | | LABORATORY | | + + + + + + | % Monocytes | 5.2 | 4.0 - 12.0 % | [facility] | | | | | | [facility] | | | | | | MEDICAL | | | | | | CENTER - | | | | | | LABORATORY | | + + + + + + | % | 0.0 | 0.0 - 5.0 % | [facility] | | | Eosinophils | | | [facility] | | | | | | MEDICAL | | | | | | CENTER - | | | | | | LABORATORY | | + + + + + + | % Basophils | 0.0 | 0.0 - 1.0 % | [facility] | | | | | | [facility] | | | | | | MEDICAL | | | | | | CENTER - | | | | | | LABORATORY | | + + + + + + | Absolute | 8.60 (H) | 1.80 - 8.50 | [facility] | | | Neutrophils | | K/uL | [facility] | | | | | | MEDICAL | | | | | | CENTER - | | | | | | LABORATORY | | + + + + + + | Absolute | 0.80 | 0.60 - 3.20 | [facility] | | | Lymphocytes | | K/uL | [facility] | | | | | | MEDICAL | | | | | | CENTER - | | | | | | LABORATORY | | + + + + + + | Absolute | 0.50 | 0.00 - 1.00 | [facility] | | | Monocytes | | K/uL | [facility] | | | | | | MEDICAL | | | | | | CENTER - | | | | | | LABORATORY | | + + + + + + | Absolute | 0.00 | 0.00 - 0.40 | [facility] | [...] + | [facility] | [address] | [place] | [phone] | | [facility] | | [address] | | | - LABORATORY | | | | + + + + + Basic Metabolic Panel (12/01/2015 4:11 AM PDT) + + + + + + | Component | Value | Ref Range | Performed | Pathologist | | | | | At | Signature | + + + + + + | Na | 141 | 136 - 149 | [facility] | [...] + + + + | Cl | 114 (H) | 98 - 109 mmol/L | [facility] | | | | | | [facility] | | | | | | MEDICAL | | | | | | CENTER - | | | | | | LABORATORY | | + + + + + + | CO2 | 22 (L) | 24 - 31 mmol/L | [facility] [...] + + + + | Glucose | 161 (H) | 70 - 109 mg/dL | [facility] | | | | | | [facility] | | | | | | MEDICAL | | | | | | CENTER - | | | | | | LABORATORY | | + + + + + + | BUN | 8 | 7 - 18 mg/dL | [facility] | | | | | | [facility] | | | | | | MEDICAL | | | | | | CENTER - | | | | | | LABORATORY | | + + + + + + | Creatinine | 0.85 | 0.60 - 1.30 | [facility] | | | | | mg/dL | [facility] | | | | | | MEDICAL | | | | | | CENTER - | | | | | | LABORATORY | | + + + + + + | eGFR, | >60Comment: GLOMERULAR | >=60 | [facility] | | | non- | FILTRATION | mL/min/1.73m2 | . [facility] | | | [place] | RATE,ESTIMATED | | MEDICAL | | | | mL/min/1.15p8Roxt than | | CENTER - | | [...] + + + + | Calcium | 8.0 (L) | 8.3 - 10.5 | [facility] | | | | | mg/dL | [facility] | | | | | | MEDICAL | | | | | | CENTER - | | | | | | LABORATORY | | + + + + + + | BUN/Creatin | 9.4 | | [facility] | | | ine [...] [address] | [place] | [phone] | | [facility] | | [address] | | | - LABORATORY | | | | + + + + + Magnesium (12/01/2015 4:11 AM PDT) + +-------+ + + + | Component | Value | Ref Range | Performed | Pathologist | | | | | At | Signature | + +-------+ + + + | Magnesium | 2.0 | 1.8 - 2.5 mg/dL | [facility] | | | | [...] [address] | [place] | [phone] | | [facility] | | [address] | | | - LABORATORY | | | | + + + + + Culture, MRSA (11/30/2015 4:08 AM PDT) + + + + + + | Component | Value | Ref Range | Performed | Pathologist | | | | | At | Signature | + + + + + + | Culture | Negative for MRSA by | | [facility] | | | | chromogenic agar method | | [facility] | | | | | | MEDICAL | | | | | | CENTER - | | | | | | LABORATORY | | + + + + + + + + | Specimen | + + | Respiratory - Both | | anterior nares (body | | structure) | + + + + + + + | Performing | Address | City/State/Zipcode | Phone Number | | Organization | | | | + + + + + | [facility] | [address] | [place], [place] | [phone] | | [facility] | | [address] | | | - LABORATORY | | | | + + + + + CT Abdomen Pelvis w Contrast (11/30/2015 1:30 AM PDT) + + | Specimen | + + | | + + + + + | Narrative | Performed At | + + + | CT ABDOMEN PELVIS W CONTRAST 11/30/2015 12:59 AM HISTORY: FEVER | [facility] | | (9 WEEKS TO 74 YEARS) EMESIS. COMPARISON: None. PROTOCOL: | | | Axial images of the abdomen and pelvis were obtained after | | | administration of 85 mL Omnipaque 350. Coronal and sagittal | | | reformations were acquired. FINDINGS: Heart size is normal. | | | There is mild scarring in the lung bases. The liver demonstrates | | | normal parenchyma. There are cholecystectomy clips. The common bile | | | duct is moderately dilated at 12 mm likely due to postcholecystectomy | | | status. The spleen is unremarkable. The pancreas demonstrates | | | normal parenchyma and a normal pancreatic duct. Adrenal glands are | | | normal. Multiple parapelvic cysts are noted of the right kidney. | | | Visualized right ureter is normal. Multiple parapelvic cysts are | | | seen of the left kidney. There is an inferior parenchymal cyst with | | | simple fluid that measures 2.6 cm. Visualized left ureter is normal. | | | Stomach, small bowel, terminal ileum, and colon demonstrate no | | | distention. The appendix is normal. Diffuse fluid is noted throughout | | | the small bowel and colon. There is mild atherosclerosis of the | | | abdominal aorta. Minimal atherosclerosis is noted of the right iliac | | | arteries. There is no significant abnormality in the portal veins, | | | mesenteric veins, or systemic veins. No enlarged lymph nodes are | | | visualized within the omentum or retroperitoneum. There is no | | | evidence for ascites or free air. Bladder is normal. Uterus | | | and adnexa are normal. Body wall soft tissue structures are | | | normal. There is mild spondylosis. Moderate disc narrowing is at | | | L4-5. A small amount of vacuum phenomenon is at this level. | | | IMPRESSION - Diffuse fluid throughout small bowel and colon that | | | could represent ileus or enteritis. There is no evidence for | | | obstruction. Previous cholecystectomy. Renal cysts. A | | | preliminary report was sent by [employer] [facility] on 11/30/2015 at 1:53 AM | | | with no significant discrepancy. Dictated and Signed by: | | | Luke Lanza MD Electronically signed: 11/30/2015 1:48 PM | | + + + + + | Procedure Note | + + | Vishnu, Rad Results In - 11/30/2015 1:[address] ABDOMEN PELVIS W CONTRAST 11/30/2015 | | 12:59 AMHISTORY: FEVER (9 WEEKS TO 74 YEARS)EMESIS.COMPARISON: None.PROTOCOL: Axial | | images of the abdomen and pelvis were obtained afteradministration of 85 mL Omnipaque | | 350. Coronal and sagittal reformations wereacquired.FINDINGS:Heart size is normal. There | | is mild scarring in the lung bases.The liver demonstrates normal parenchyma. There are | | cholecystectomy clips. Thecommon bile duct is moderately dilated at 12 mm likely due | | topostcholecystectomy status.The spleen is unremarkable. The pancreas demonstrates | | normal parenchyma and anormal pancreatic duct. Adrenal glands are normal.Multiple | | parapelvic cysts are noted of the right kidney. Visualized right ureteris | | normal.Multiple parapelvic cysts are seen of the left kidney. There is an | | inferiorparenchymal cyst with simple fluid that measures 2.6 cm. Visualized left | | ureteris normal.Stomach, small bowel, terminal ileum, and colon demonstrate no | | distention. Theappendix is normal. Diffuse fluid is noted throughout the small bowel and | | colon.There is mild atherosclerosis of the abdominal aorta. Minimal atherosclerosis | | isnoted of the right iliac arteries. There is no significant abnormality in theportal | | veins, mesenteric veins, or systemic veins. No enlarged lymph nodes are visualized | | within the omentum or retroperitoneum.There is no evidence for ascites or free | | air.Bladder is normal.Uterus and adnexa are normal.Body wall soft tissue structures are | | normal. There is mild spondylosis. Moderatedisc narrowing is at L4-5. A small amount of | | vacuum phenomenon is at this level.IMPRESSION -Diffuse fluid throughout small bowel and | | colon that could represent ileus orenteritis. There is no evidence for | | obstruction.Previous cholecystectomy.Renal cysts.A preliminary report was sent by | | [employer] on 11/30/2015 at 1:53 AM with nosignificant discrepancy. Dictated and | | Signed by: Luke Lanza MD Electronically signed: 11/30/2015 1:48 PM | |Multiple parapelvic cysts are seen of the left kidney. There is an inferior | |parenchymal cyst with simple fluid that measures 2.6 cm. Visualized left ureter | |is normal. | | | |Stomach, small bowel, terminal ileum, and colon demonstrate no distention. The | |appendix is normal. Diffuse fluid is noted throughout the small bowel and colon. | | | |There is mild atherosclerosis of the abdominal aorta. Minimal atherosclerosis is | |noted of the right iliac arteries. There is no significant abnormality in the | |portal veins, mesenteric veins, or systemic veins. | | | |No enlarged lymph nodes are visualized within the omentum or retroperitoneum. | | | |There is no evidence for ascites or free air. | | | |Bladder is normal. | | | |Uterus and adnexa are normal. | | | |Body wall soft tissue structures are normal. There is mild spondylosis. Moderate | |disc narrowing is at L4-5. A small amount of vacuum phenomenon is at this level. | | | |IMPRESSION - | |Diffuse fluid throughout small bowel and colon that could represent ileus or | |enteritis. There is no evidence for obstruction. | | | |Previous cholecystectomy. | | | |Renal cysts. | | | |A preliminary report was sent by [employer] [facility] on 11/30/2015 at 1:53 AM with no | |significant discrepancy. | | | | | |Dictated and Signed by: Luke Lanza MD | | Electronically signed: 11/30/2015 1:48 PM | + + + +---------+ + + | Performing | Address | City/State/Zipcode | Phone Number | | Organization | | | | + +---------+ + + | [facility] | | | | + +---------+ + + Campylobacter AkinQual (11/30/2015 12:54 AM PDT) + + + + + + | Component | Value | Ref Range | Performed | Pathologist | | | | | At | Signature | + + + + + + | Campylobact | Negative | Negative | [facility] | | | er AG, Qual | | | [facility] | | | | | | MEDICAL | | | | | | CENTER - | | | | | | LABORATORY | | + + + + + + + + | Specimen | + + | Stool - Stool | | specimen (specimen) | + + + + + + + | Performing | Address | City/State/Zipcode | Phone Number | | Organization | | | | + + + + + | [facility] | [address] | [place] | [phone] | | [facility] | | [address] | | | - LABORATORY | | | | + + + + + Culture, Stool Result (11/30/2015 12:54 AM PDT) + + + + + + | Component | Value | Ref Range | Performed | Pathologist | | | | | At | Signature | + + + + + + | Culture | No Salmonella, Shigella, | | [facility] | | | | Aeromonas, Plesiomonas, | | [facility] | | | | E. coli O157 or | | MEDICAL | | | | Yersinia isolated. | | CENTER - | | | | | | LABORATORY | | + + + + + + | Culture | 1+ Usual FloraComment: | | [facility] | | | | Consistent with usual | | [facility] | | | | enteric josé antonio. | | MEDICAL | | | | | | CENTER - | | | | | | LABORATORY | | + + + + + + + + | Specimen | + + | Stool - Stool | | specimen (specimen) | + + + + + + + | Performing | Address | City/State/Zipcode | Phone Number | | Organization | | | | + + + + + | [facility] | [address] | [place] | [phone] | | [facility] | | [address] | | | - LABORATORY | | | | + + + + + Shigatoxin 1 and 2 (11/30/2015 12:54 AM PDT) + + + + + + | Component | Value | Ref Range | Performed | Pathologist | | | | | At | Signature | + + + + + + | Shigatoxin | Negative | Negative | [facility] | | | 1 | | | [facility] | | | | | | MEDICAL | | | | | | CENTER - | | | | | | LABORATORY | | + + + + + + | Shigatoxin | Negative | Negative | [facility] | | | 2 | | | [facility] | | | | | | MEDICAL | | | | | | CENTER - | | | | | | LABORATORY | | + + + + + + + + | Specimen | + + | Stool - Stool | | specimen (specimen) | + + + + + + + | Performing | Address | City/State/Zipcode | Phone Number | | Organization | | | | + + + + + | [facility] | [address] | [place] | [phone] | | [facility] | | [address] | | | - LABORATORY | | | | + + + + + POCT Occ Bld Stl not Colorectal Neoplasm (11/30/2015 12:52 AM PDT) + + + + + + | Component | Value | Ref Range | Performed | Pathologist | | | | | At | Signature | + + + + + + | Occult | Positive (A) | Negative | | | | Blood x1, | | | | | | Stool, POC | | | | | + + + + + + | Occult | | Negative | | | | Blood x2, | | | | | | Stool, POC | | | | | + + + + + + | Occult | | Negative | | | | Blood x3, | | | | | | Stool, POC | | | | | + + + + + + | Occult | Acceptable | | | | | Blood QC | | | | | | Result | | | | | + + + + + + | Card Lot # | [id number] | | | | + + + + + + | Card | 8-17 | | | | | Expiration | | | | | | Date | | | | | + + + + + + | Developer | [id number] | | | | | Lot # | | | | | + + + + + + | Developer | [id number] | | | | | Expiration | | | | | | Date | | | | | + + + + + + + + | Specimen | + + | Stool specimen | | (specimen) | + + Clostridium difficile A and B EIA (11/30/2015 12:45 AM PDT) + + + + + + | Component | Value | Ref Range | Performed | Pathologist | | | | | At | Signature | + + + + + + | Clostridium | Negative | Negative | [facility] | | | Diff | | | [facility] | | | | | | MEDICAL | | | | | | CENTER - | | | | | | LABORATORY | | + + + + + + | Clostridium | NegativeComment: | | [facility] | | | Difficile | Negative for toxigenic | | [facility] | | | G[facility] Antigen | Clostridium difficile | | MEDICAL | | | | | | CENTER - | | | | | | LABORATORY | | + + + + + + + + | Specimen | + + | Stool - Stool | | specimen (specimen) | + + + + + + + | Performing | Address | City/State/Zipcode | Phone Number | | Organization | | | | + + + + + | [facility] | [address] | [place] | [phone] | | [facility] | | [address] | | | - LABORATORY | | | | + + + + + Fecal leukocytes (11/30/2015 12:45 AM PDT) + + + + + + | Component | Value | Ref Range | Performed | Pathologist | | | | | At | Signature | + + + + + + | Lactoferrin | Positive (A) | Negative | [facility] | | | , Qual | | | [facility] | | | | | | MEDICAL | | | | | | CENTER - | | | | | | LABORATORY | | + + + + + + + + | Specimen | + + | Stool - Stool | | specimen (specimen) | + + + + + + + | Performing | Address | City/State/Zipcode | Phone Number | | Organization | | | | + + + + + | [facility] | [address] | [place] | [phone] | | [facility] | | [address] | | | - LABORATORY | | | | + + + + + Culture, Urine (11/30/2015 12:37 AM PDT) + + + + + + | Component | Value | Ref Range | Performed | Pathologist | | | | | At | Signature | + + + + + + | Culture | >100,000 CFU/ml | | [facility] | | | | Coagulase negative | | [facility] | | | | Staphylococcus | | MEDICAL | | | | | | CENTER - | | | | | | LABORATORY | | + + + + + + + + | Specimen | + + | Urine - Spot urine | | sample (specimen) | + + + + +--------+ + | Organism | Antibiotic | Method | Susceptibility | + + +--------+ + | Coagulase negative | Ciprofloxacin | | <=0.5: Sensitive | | Staphylococcus | | | | + + +--------+ + | Coagulase negative | Nitrofurantoin | | 256: Resistant | | Staphylococcus | | | | + + +--------+ + | Coagulase negative | Oxacillin | | >=4: Resistant | | Staphylococcus | | | | + + +--------+ + | Coagulase negative | Penicillin G | | Resistant | | Staphylococcus | | | | + + +--------+ + | Coagulase negative | Rifampin | | <=0.5: Sensitive | | Staphylococcus | | | | + + +--------+ + +---+ + | | Comment: Rifampin | | | should not be used | | | alone for | | | chemotherapy. | +---+ + + + +---+ + | Coagulase negative | Tetracycline | | <=1: Sensitive | | Staphylococcus | | | | + + +---+ + | Coagulase negative | Trimethoprim + | | <=10: Sensitive | | Staphylococcus | Sulfamethoxazole | | | + + +---+ + | Coagulase negative | Vancomycin | | <=0.5: Sensitive | | Staphylococcus | | | | + + +---+ + + + + + + | Performing | Address | City/State/Zipcode | Phone Number | | Organization | | | | + + + + + | [facility] | [address] | [place] | [phone] | | [facility] | | [address] | | | - LABORATORY | | | | + + + + + Urinalysis With Microscopic (11/30/2015 12:37 AM PDT) + + + + + + | Component | Value | Ref Range | Performed | Pathologist | | | | | At | Signature | + + + + + + | Color, | Yellow | Light Yellow, | [facility] | | | Urine | | Yellow, Straw | [facility] | | | | [...] + + + + | Specific | 1.017 | 1.001 - 1.030 | [facility] | | | [place], | | | [facility] | | [...] + + + + | Leukocyte | Moderate (A) | Negative | [facility] | | [...] + + + + | Squamous | 10-15 (A) | 0 - 2 /LPF | [facility] | | | Epithelial | | | [facility] | | | Cells, | | | [...] + + + + + + | Budding | Few (A) | Negative | [facility] | | | Yeast, | | | [facility] | | | Urine | | | MEDICAL | | | | | | CENTER - | | | | | | LABORATORY | | + + + + + + | Mucus, | Present (A) | Negative /LPF | [facility] | | | Urine | | | [facility] | | | | | | MEDICAL [...] [address] | [place] | [phone] | | [facility] | | [address] | | | - LABORATORY | | | | + + + + + XR Chest AP Portable (11/29/2015 11:52 PM PDT) + + | Specimen | + + | | + + + + + | Narrative | Performed At | + + + | XR CHEST AP PORTABLE 11/29/2015 10:39 PM HISTORY: Sepsis. | [facility] | | COMPARISON: Multiple priors. Findings: Heart size is within | | | normal limits. Aorta is normal. Mediastinum is unremarkable. Central | | | pulmonary vasculature is normal. The bilateral lungs are clear with | | | no evidence for pleural effusion or pneumothorax. There are no acute | | | osseous abnormalities. IMPRESSION - No acute findings. | | | Dictated and Signed by: Luke Lanza MD Electronically signed: | | | 11/30/2015 2:54 PM | | + + + + + | Procedure Note | + + | Vishnu, Rad Results In - 11/30/2015 2:57 PM PDT XR CHEST AP PORTABLE 11/29/2015 10:39 PM | | | | HISTORY: Sepsis. | | | | COMPARISON: Multiple priors. | | | | Findings: | | Heart size is within normal limits. Aorta is normal. Mediastinum is | | unremarkable. Central pulmonary vasculature is normal. The bilateral lungs are | | clear with no evidence for pleural effusion or pneumothorax. There are no acute | | osseous abnormalities. | | | | IMPRESSION - | | No acute findings. | | | | Dictated and Signed by: Luke Lanza MD | | Electronically signed: 11/30/2015 2:54 PM | + + + +---------+ + + | Performing | Address | City/State/Zipcode | Phone Number | | Organization | | | | + +---------+ + + | [facility] | | | | + +---------+ + + Extra Green Top Tube (11/29/2015 11:20 PM PDT) + +-------+ + + + [...] + | [facility] | [address] | [place] | [phone] | | [facility] | | [address] | | | - LABORATORY | | | | + + + + + PTT (11/29/2015 11:20 PM PDT) + +-------+ + + + | Component | Value | Ref Range | Performed | Pathologist | | | | | At | Signature | + +-------+ + + + | aPTT | 31 | 22 - 36 seconds | [facility] | | | | | [...] [facility] | [address] | [place] | [phone] | | [facility] | | [address] | | | - LABORATORY | | | | + + + + + Protime INR (11/29/2015 11:20 PM PDT) + + + + + + | Component | Value | Ref Range | Performed | Pathologist | | | | | At | Signature | + + + + + + | Prothrombin | 14.4 (H) | 11.3 - 13.9 | [facility] | | | Time | | seconds | [facility] | | | | | | MEDICAL | | | | | | CENTER - | | | | | | LABORATORY | | + + + + + + | INR | 1.07Comment: Usual Oral | 0.90 - 1.10 | [facility] | | | | Anticoagulation Range: | | [facility] | | | | 2.0 - 3.0High | | MEDICAL | | | | Level Oral | | CENTER - | | | | Anticoagulation Range: | | LABORATORY | | | | 2.5 - 3.5 | | | | + + + + + + + + | Specimen | + + | Blood | + + + + + + + | Performing | Address | City/State/Zipcode | Phone Number | | Organization | | | | + + + + + | [facility] | [address] | [place] | [phone] | | [facility] | | [address] | | | - LABORATORY | | | | + + + + + Culture, Blood (11/29/2015 11:19 PM PDT) + + + + + + | Component | Value | Ref Range | Performed | Pathologist | | | | | At | Signature | + + + + + + | Culture | No Growth | | [facility] | | | | | | [facility] | | | | | | MEDICAL | | | | | | CENTER - | | | | | | LABORATORY | | + + + + + + + + | Specimen | + + | Blood - Peripheral | | blood specimen | | (specimen) | + + + + + + + | Performing | Address | City/State/Zipcode | Phone Number | | Organization | | | | + + + + + | [facility] | [address] | [place] | [phone] | | [facility] | | [address] | | | - LABORATORY | | | | + + + + + Culture, Blood (11/29/2015 11:10 PM PDT) + + + + + + | Component | Value | Ref Range | Performed | Pathologist | | | | | At | Signature | + + + + + + | Culture | No Growth | | [facility] | | | | | | [facility] | | | | | | MEDICAL | | | | | | CENTER - | | | | | | LABORATORY | | + + + + + + + + | Specimen | + + | Blood - Peripheral | | blood specimen | | (specimen) | + + + + + + + | Performing | Address | City/State/Zipcode | Phone Number | | Organization | | | | + + + + + | [facility] | [address] | [place] | [phone] | | [facility] | | [address] | | | - LABORATORY | | | | + + + + + Extra Blue Top Tube (11/29/2015 10:51 PM PDT) + +-------+ + + + [...] [address] | [place] | [phone] | | [facility] | | [address] | | | - LABORATORY | | | | + + + + + Extra Gold Top Tube (11/29/2015 10:51 PM PDT) + +-------+ + + + | Component | Value | Ref Range | Performed | Pathologist | | | | | At | Signature | + +-------+ + + + | Extra Gold | Done | | [facility] | | | Top Tube | | | [facility] | | | | | | MEDICAL [...] [address] | [place] | [phone] | | [facility] | | [address] | | | - LABORATORY | | | | + + + + + Extra Green Top Tube (11/29/2015 10:51 PM PDT) + +-------+ + + + | Component | Value | Ref Range | Performed | Pathologist | | | | | At | Signature | + +-------+ + + + | Extra Green | Done | | [facility] | | | Top Tube | | | [facility] | | [...] [address] | [place] | [phone] | | [facility] | | [address] | | | - LABORATORY | | | | + + + + + Phosphorus (11/29/2015 10:50 PM PDT) + +---------+ + + + | Component | Value | Ref Range | Performed | Pathologist | | | | | At | Signature | + +---------+ + + + | Phosphorus | 1.6 (L) | 2.5 - 4.6 mg/dL | [...] + | [facility] | [address] | [place], [place] | [phone] | | [facility] | | [address] | | | - LABORATORY | | | | + + + + + Magnesium (11/29/2015 10:50 PM PDT) + +-------+ + + + | Component | Value | Ref Range | Performed | Pathologist | | | | | At | Signature | + +-------+ + + + | Magnesium | 1.9 | 1.8 - 2.5 mg/dL | [facility] | | | | [...] [facility] | [address] | [place] | [phone] | | [facility] | | [address] | | | - LABORATORY | | | | + + + + + Lactic Acid (11/29/2015 10:50 PM PDT) + +-------+ + + + | Component | Value | Ref Range | Performed | Pathologist | | | | | At | Signature | + +-------+ + + + | Lactate | 1.9 | 0.5 - 2.2 | [facility] | | | | | mmol/L | [facility] | | | | [...] [address] | [place] | [phone] | | [facility] | | [address] | | | - LABORATORY | | | | + + + + + C-Reactive Protein (11/29/2015 10:50 PM PDT) + + + + + + | Component | Value | Ref Range | Performed | Pathologist | | | | | At | Signature | + + + + + + | CRP | 20.83 (H) | <8.00 mg/L | [facility] | | | | | [...] + | [facility] | [address] | [place] | [phone] | | [facility] | | [address] | | | - LABORATORY | | | | + + + + + Comprehensive Metabolic Panel (11/29/2015 10:50 PM PDT) + + + + + + | Component | Value | Ref Range | Performed | Pathologist | | | | | At | Signature | + + + + + + | Na | 138 | 136 - 149 | [facility] | | | | | mmol/L | [facility] | | | | | | MEDICAL | | | | | | CENTER - | | | | | | LABORATORY | | + + + + + + | K | 3.5 | 3.5 - 5.1 | [facility] | | | | | mmol/L | [facility] | | | | | | MEDICAL | | | | | | CENTER - | | | | | | LABORATORY | | + + + + + + | Cl | 108 | 98 - 109 mmol/L | [facility] | | | | | | [facility] | | | | | | MEDICAL | | | | | | CENTER - | | | | | | LABORATORY | | + + + + + + | CO2 | 21 (L) | 24 - 31 mmol/L | [facility] [...] + + + + | Glucose | 105 | 70 - 109 mg/dL | [facility] | | | | | | [facility] | | | | | | MEDICAL | | | | | | CENTER - | | | | | | LABORATORY | | + + + + + + | BUN | 22 (H) | 7 - 18 mg/dL | [facility] | | | | | | [facility] | | | | | | MEDICAL | | | | | | CENTER - | | | | | | LABORATORY | | + + + + + + | Creatinine | 1.04 | 0.60 - 1.30 | [facility] | [...] mL/min/1.73m2 | [facility] | | | [place] | RATE,ESTIMATED | | MEDICAL | | | | mL/min/1.83k8Ratb than | | CENTER - | | [...] + + + + | Calcium | 8.4 | 8.3 - 10.5 | [facility] | | | | | mg/dL | [...] + + + + | AST | 22 | 10 - 42 U/L | [facility] | | | | | | [facility] | | | | | | MEDICAL | | | | | | CENTER - | | | | | | LABORATORY | | + + + + + + | ALT | 20 | 6 - 45 U/L | [facility] [...] + + + + | BUN/Creatin | 21.2 | | [facility] | | | ine Ratio | | | [facility] | | [...] [address] | [place] | [phone] | | [facility] | | [address] | | | - LABORATORY | | | | + + + + + CBC with Differential (11/29/2015 10:50 PM PDT) + + + + + + | Component | Value | Ref Range | Performed | Pathologist | | | | | At | Signature | + + + + + + | White Blood | 7.9 | 4.0 - 11.0 K/uL | [facility] | | | Cells | | | [facility] | | | | | | MEDICAL | | | | | | CENTER - | | | | | | LABORATORY | | + + + + + + | Red Blood | 5.31 (H) | 3.70 - 5.20 | [facility] | | | Cells | | M/uL | [facility] | | | | | | MEDICAL | | | | | | CENTER - | | | | | | LABORATORY | | + + + + + + | Hemoglobin | 15.6 | 11.5 - 16.0 | [facility] | | | | | g/dL | [facility] | | | | | | MEDICAL | | | | | | CENTER - | | | | | | LABORATORY | | + + + + + + | Hematocrit | 47.3 (H) | 34.0 - 47.0 % | [facility] | | | | | | [facility] | | | | | | MEDICAL | | | | | | CENTER - | | | | | | LABORATORY | | + + + + + + | MCV | 89.1 | 83.0 - 101.0 fL | [facility] | | | | | | [facility] | | | | | | MEDICAL | | | | | | CENTER - | | | | | | LABORATORY | | + + + + + + | MCH | 29.3 | 28.0 - 35.0 pg | [facility] | | | | | | [facility] | | | | | | MEDICAL | | | | | | CENTER - | | | | | | LABORATORY | | + + + + + + | MCHC | 32.9 | 32.0 - 36.0 | [facility] | | | | | g/dL | [facility] | | | | | | MEDICAL | | | | | | CENTER - | | | | | | LABORATORY | | + + + + + + | RDW-CV | 13.6 | <15.0 % | [facility] | | | | | | [facility] | | | | | | MEDICAL | | | | | | CENTER - | | | | | | LABORATORY | | + + + + + + | Platelet | 216 | 140 - 440 K/uL | [facility] | | | Count | | | [facility] | | | | | | MEDICAL | | | | | | CENTER - | | | | | | LABORATORY | | + + + + + + | MPV | 8.0 | fL | [facility] | | | | | | [facility] | | | | | | MEDICAL | | | | | | CENTER - | | | | | | LABORATORY | | + + + + + + | % | 87.0 (H) | 45.0 - 82.0 % | [facility] | | | Neutrophils | | | [facility] | | | | | | MEDICAL | | | | | | CENTER - | | | | | | LABORATORY | | + + + + + + | % | 7.2 (L) | 20.0 - 45.0 % | [facility] | | | Lymphocytes | | | [facility] | | | | | | MEDICAL | | | | | | CENTER - | | | | | | LABORATORY | | + + + + + + | % Monocytes | 5.2 | 4.0 - 12.0 % | [facility] | | | | | | [facility] | | | | | | MEDICAL | | | | | | CENTER - | | | | | | LABORATORY | | + + + + + + | % | 0.4 | 0.0 - 5.0 % | [facility] | | | Eosinophils | | | [facility] | | | | | | MEDICAL | | | | | | CENTER - | | | | | | LABORATORY | | + + + + + + | % Basophils | 0.2 | 0.0 - 1.0 % | [facility] | | | | | | [facility] | | | | | | MEDICAL | | | | | | CENTER - | | | | | | LABORATORY | | + + + + + + | Absolute | 6.90 | 1.80 - 8.50 | [facility] | | | Neutrophils | | K/uL | [facility] | | | | | | MEDICAL | | | | | | CENTER - | | | | | | LABORATORY | | + + + + + + | Absolute | 0.60 | 0.60 - 3.20 | [facility] | | | Lymphocytes | | K/uL | [facility] | | | | | | MEDICAL | | | | | | CENTER - | | | | | | LABORATORY | | + + + + + + | Absolute | 0.40 | 0.00 - 1.00 | [facility] | | | Monocytes | | K/uL | [facility] | | | | | | MEDICAL | | | | | | CENTER - | | | | | | LABORATORY | | + + + + + + | Absolute | 0.00 | 0.00 - 0.40 | [facility] | | | Eosinophils | | K/uL | [facility] | | | | | | MEDICAL | | | | | | CENTER - | | | | | | LABORATORY | | + + + + + + | Absolute | 0.00 | 0.00 - 0.10 | [facility] | | | Basophils | | K/uL | [facility] | [...] [address] | [place] | [phone] | | [facility] | | [id number] | | | - LABORATORY | | | | + + + + + documented in this encounter Visit Diagnoses + + | Diagnosis | + + | Gastroenteritis - Primary Other and unspecified noninfectious gastroenteritis and | | colitis | + + | Sepsis, due to unspecified organism | + + | Adrenal insufficiency (HCC) Glucocorticoid deficiency | + + | Bacterial UTI Urinary tract infection, site not specified | + + | Chronic kidney disease (CKD), unspecified stage | + + | Hyperlipidemia, unspecified hyperlipidemia type | + + | Hypothyroidism, unspecified type | + + | Chronic kidney disease (CKD) Chronic kidney disease, unspecified | + + | Hypokalemia due to loss of potassium | + + documented in this encounter Administered Medications + +---------+ + +-------+------+ | Medication Order | MAR | Action | Dose | Rate | Site | | | Action | Date | | | | + +---------+ + +-------+------+ | acetaminophen (OFIRMEV) IVPB | New Bag | 11/29/19 | 1,000 mg | 400 | | | 1,000 mg 1,000 mg, Intravenous, | | 16 11:01 | | mL/hr | | | Administer over 15 Minutes, ONCE, | | PM PDT | | | | | 11/29/15 at 2245, For 1 dose | | | | | | + +---------+ + +-------+------+ +---+---+ | | | +---+---+ + +-------+ +-------+---+---+ | atorvaSTATin (LIPITOR) tablet | Given | 12/01/19 | 10 mg | | | | 10 mg 10 mg, Oral, NIGHTLY, | | 16 8:02 | | | | | First dose on Wed11/30/15 at 2100 | | PM PDT | | | | + +-------+ +-------+---+---+ +-------+ +-------+---+---+ | Given | 11/30/19 | 10 mg | | | | | 16 8:51 | | | | | | PM PDT | | | | +-------+ +-------+---+---+ +---+---+ | | | +---+---+ + +-------+ +--------+---+---+ | cefdinir (OMNICEF) capsule 300 | Given | 12/02/19 | 300 mg | | | | mg 300 mg, Oral, 2 TIMES DAILY, | | 16 8:21 | | | | | First dose on 12/02/15 at | | AM PDT | | | | | 0900, Indications: UTI - LOWER | | | | | | + +-------+ +--------+---+---+ +---+---+ | | | +---+---+ + +---------+ +-----+-------+---+ | cefTRIAXone (ROCEPHIN) 1 g in | New Bag | 12/01/19 | 1 g | 100 | | | sodium chloride 0.9% 50 mL IVPB | | 16 12:40 | | mL/hr | | | 1 g, Intravenous, Administer over | | PM PDT | | | | | 30 Minutes, EVERY 24 HOURS | | | | | | | (Daily), First dose on Sun | | | | | | | 12/01/15 at 1230, Pharmacist may | | | | | | | adjust Activate system and mix | | | | | | | before use., Indications: UTI - | | | | | | | LOWER | | | | | | + +---------+ +-----+-------+---+ +---+---+ | | | +---+---+ + +-------+ +------+---+---+ | dexamethasone (DECADRON) 4 | Given | 11/30/19 | 4 mg | | | | mg/mL injection 4 mg 4 mg, | | 16 1:58 | | | | | Intravenous, ONCE, 11/30/15 at | | AM PDT | | | | | 0145, For 1 dose | | | | | | + +-------+ +------+---+---+ +---+---+ | | | +---+---+ + +---------+ +--------+-------+---+ | dextrose 5% and sodium chloride | New Bag | 12/01/19 | 1,000 | 125 | | | 0.45% with KCl 30 mEq/L (D5 06/08 | | 16 11:31 | mLs | mL/hr | | | NS + KCL 30) infusion at 125 | | AM PDT | | | | | mL/hr, Intravenous, CONTINUOUS, | | | | | | | Starting 11/30/15 at 0245 | | | | | | + +---------+ +--------+-------+---+ +---------+ +---+-------+---+ | New Bag | 12/01/19 | | 125 | | | | 16 3:30 | | mL/hr | | | | AM PDT | | | | +---------+ +---+-------+---+ | New Bag | 11/30/19 | | 125 | | | | 16 7:22 | | mL/hr | | | | PM PDT | | | | +---------+ +---+-------+---+ +---+---+ | | | +---+---+ + +-------+ +-------+---+---+ | hydrocortisone (PF) | Given | 12/02/19 | 50 mg | | | | (solu-CORTEF) injection 50 mg 50 | | 16 12:02 | | | | | mg, Intravenous, EVERY 6 HOURS | | PM PDT | | | | | (4 times per day), First dose on | | | | | | | 11/30/15 at 0600, Mix with 2 | | | | | | | mL sterile water to make 50 | | | | | | | mg/mL., | | | | | | + +-------+ +-------+---+---+ +-------+ +-------+---+---+ | Given | 12/02/19 | 50 mg | | | | | 16 7:39 | | | | | | AM PDT | | | | +-------+ +-------+---+---+ | Given | 12/01/19 | 50 mg | | | | | 16 11:13 | | | | | | PM PDT | | | | +-------+ +-------+---+---+ +---+---+ | | | +---+---+ + +-------+ +--------+---+---+ | iohexol (OMNIPAQUE 350) 350 | Given | 11/30/19 | 85 mLs | | | | mg/mL injection 85 mL 85 mL, | | 16 1:31 | | | | | Intravenous, ONCE PRN, Other, | | AM PDT | | | | | Starting 11/30/15 at 0131, For | | | | | | | 1 dose, Cat Scanner | | | | | | + +-------+ +--------+---+---+ +---+---+ | | | +---+---+ + +-------+ +---------+---+---+ | levothyroxine (SYNTHROID, | Given | 12/02/19 | 100 mcg | | | | LEVOTHROID) tablet 100 mcg 100 | | 16 7:39 | | | | | mcg, Oral, DAILY BEFORE | | AM PDT | | | | | BREAKFAST, First dose on Sat | | | | | | | 6/25/16 at 0730, Give before | | | | | | | breakfast., | | | | | | + +-------+ +---------+---+---+ +-------+ +---------+---+---+ | Given | 12/01/19 | 100 mcg | | | | | 16 6:52 | | | | | | AM PDT | | | | +-------+ +---------+---+---+ | Given | 11/30/19 | 100 mcg | | | | | 16 6:52 | | | | | | AM PDT | | | | +-------+ +---------+---+---+ +---+---+ | | | +---+---+ + +-------+ +------+---+---+ | loperamide (IMODIUM) capsule 2 | Given | 12/02/19 | 2 mg | | | | mg 2 mg, Oral, EVERY 3 HOURS | | 16 9:37 | | | | | PRN, Diarrhea, Starting Sun | | AM PDT | | | | | 12/01/15 at 1211 | | | | | | + +-------+ +------+---+---+ +-------+ +------+---+---+ | Given | 12/01/19 | 2 mg | | | | | 16 1:41 | | | | | | PM PDT | | | | +-------+ +------+---+---+ +---+---+ | | | +---+---+ + +-------+ +--------+---+---+ | magnesium oxide (MAG-OX) tablet | Given | 12/02/19 | 400 mg | | | | 400 mg 400 mg, Oral, ONCE, Mon | | 16 1:20 | | | | | 12/02/15 at 1330, For 1 dose | | PM PDT | | | | + +-------+ +--------+---+---+ +---+---+ | | | +---+---+ + +-------+ +------+---+---+ | ondansetron (ZOFRAN) injection | Given | 11/29/19 | 4 mg | | | | 4 mg 4 mg, Intravenous, ONCE, | | 16 10:53 | | | | | 11/29/15 at 2245, For 1 dose | | PM PDT | | | | + +-------+ +------+---+---+ +---+---+ | | | +---+---+ + +-------+ +--------+---+---+ | potassium chloride (K-DUR) ER | Given | 12/02/19 | 20 mEq | | | | tablet 20 mEq 20 mEq, Oral, | | 16 1:20 | | | | | ONCE, Wed12/02/15 at 1315, For 1 | | PM PDT | | | | | dose, OK to substitute liquid | | | | | | | formulation if better tolerated., | | | | | | | | | | | | | + +-------+ +--------+---+---+ +---+---+ | | | +---+---+ + +-------+ +--------+---+---+ | potassium chloride (K-DUR) ER | Given | 12/02/19 | 40 mEq | | | | tablet 40 mEq 40 mEq, Oral, | | 16 8:21 | | | | | ONCE, Wed12/02/15 at 0815, For 1 | | AM PDT | | | | | dose, OK to substitute liquid | | | | | | | formulation if better tolerated., | | | | | | | | | | | | | + +-------+ +--------+---+---+ +---+---+ | | | +---+---+ + +-------+ + +---+---+ | potassium phosphate-sodium | Given | 12/01/19 | 1 packet | | | | phosphate (PHOS-NAK) packet 1 | | 16 5:26 | | | | | packet 1 packet, Oral, 2 TIMES | | PM PDT | | | | | DAILY 0800 & 1600, First dose on | | | | | | | 11/30/15 at 0500, For 4 doses, | | | | | | | Mix with 75 mL water. Each | | | | | | | packet contains 250 mg (8 mmol) | | | | | | | elemental phosphorus, 6.9 mEq | | | | | | | sodium, 7.1 mEq potassium. Dose | | | | | | | in mg and mmol is based on | | | | | | | elemental phosphorous. For | | | | | | | partial doses, reconstitute as | | | | | | | directed, then administer the | | | | | | | dose ordered., | | | | | | + +-------+ + +---+---+ +-------+ + +---+---+ | Given | 12/01/19 | 1 packet | | | | | 16 8:45 | | | | | | AM PDT | | | | +-------+ + +---+---+ | Given | 11/30/19 | 1 packet | | | | | 16 5:04 | | | | | | PM PDT | | | | +-------+ + +---+---+ +---+---+ | | | +---+---+ + +---------+ +--------+-------+---+ | sodium chloride 0.9% (NS) bolus | New Bag | 11/29/19 | 2,040 | 2040 | | | 2,040 mL 2,040 mL (30 mL/kg | | 16 10:40 | mLs | mL/hr | | | 68 kg), Intravenous, Administer | | PM PDT | | | | | over 1 Hours, ONCE, 11/29/15 | | | | | | | at 2245, For 1 dose | | | | | | + +---------+ +--------+-------+---+ +---+---+ | | | +---+---+ + +---------+ +--------+-------+---+ | sodium chloride 0.9% (NS) | New Bag | 11/30/19 | 1,000 | 125 | | | infusion at 125 mL/hr, | | 16 1:32 | mLs | mL/hr | | | Intravenous, CONTINUOUS, Starting | | AM PDT | | | | | 11/30/15 at 0130 | | | | | | + +---------+ +--------+-------+---+ +---+---+ | | | +---+---+ + + + +---+ +---+ | sodium chloride 0.9% (NS) | Rate/Dos | 12/02/19 | | 50 mL/hr | | | infusion at 50 mL/hr, | e Change | 16 8:20 | | | | | Intravenous, CONTINUOUS, Starting | | AM PDT | | | | | 12/01/15 at 1230 | | | | | | + + + +---+ +---+ + + +---+-------+---+ | Restarted | 12/02/19 | | 100 | | | | 16 12:33 | | mL/hr | | | | AM PDT | | | | + + +---+-------+---+ | New Bag | 12/01/19 | | 100 | | | | 16 10:23 | | mL/hr | | | | PM PDT | | | | + + +---+-------+---+ +---+---+ | | | +---+---+ documented in this encounter
--- OUTSIDE RECORDS SUMMARY | ~2020-01-04 | XMS | Encounter Summary ---
Demographics + + + | Address | [address] | | | [place] [address] | + + + | Home Phone [...] | Author | [facility] | | | and [place] [...] [place], | | | | | [place] [address] | | + + + + + | Ryan Vogt | ECON | Unknown | | + + + + + | Rob Vogt | ECON | Unknown | | + + + + + Care Team Providers + +------+ + | Care Surveillance Supervisor Name | Role | Phone | + +------+ + PCP | Unavailable | + +------+ + Encounter Details +--------+ + + + + | Date | Type | Department | Care Team | Description | +--------+ + + + + | 03/15/ | Hospital | [facility] | | | | 2008 | Encounter | [facility] | | | | | | CENTER [address] | | | | | | [place] | | | | | | [address] | | | | | | [phone] | | | +--------+ + + + [...] [place] | | | | | | [id number] | | | | | | | | +--------+---------+ + + + | 07/25/ | Office | Cardiology | Renetta, | | | 2020 | Visit | | [facility] [address] | | | | | | [place] | | | | | | [place] [address] | | | | | | [phone] | | | | | | | | +--------+---------+ + + + | 09/03/ | Office | Endocrinology | Cheryl Zee MD | | | 2020 | Visit | | [address] [place] | | | | | | [address] [place] | | | | | | [address] | | | | | | | | +--------+---------+ + + + documented as of this encounter Visit Diagnoses Not on filedocumented in this encounter"
--- OUTSIDE RECORDS SUMMARY | ~2020-01-04 | XMS | Encounter Summary ---
Demographics + + + | Address | [address] | | | [place] [address] | + + + | Home Phone [...] [facility] | | | and [place] [...] [place], | | | | | [place] [address] | | + + + + + | Ryan Vogt | ECON | Unknown | | + + + + + | Rob Vogt | ECON | Unknown | | + + + + + Care Team Providers + +------+ + | Care Chemical Process Analyst Name | Role | Phone | + +------+ + | Abrahan Samaniego MD | PCP | | + +------+ + Reason for Visit + + + | Reason | Comments | + + + | Follow-up | E.R follow up | + + + Encounter Details +--------+---------+ + + + | Date | Type | Department | Care Team | Description | +--------+---------+ + + + | 01/26/ | Office | [facility] | Abrahan Samaniego MD | Stage 3 chronic | | 2019 | Visit | [address] | [address] [place] [address] | kidney disease (HCC) | | | | [place], | [place] | (Primary Dx); Left | | | | [place] [address] | [address] | hand pain; | | | | [phone] | | Hypopituitarism | | | | | | (HCC); Atypical | | | | | | chest pain; Other | | | | | | osteoporosis without | | | | | | current | | | | | | pathological | | | | | | fracture | +--------+---------+ + + + Social History [...] + | Blood Pressure | 120/64 | 01/26/2019 2:59 PM | | | | | PDT | | + + + + + | Pulse | 84 | 01/26/2019 2:59 PM | | | | | PDT | | + + + + + | Temperature | 36.4 C (97.5 F) | 01/26/2019 2:59 PM | | | | | PDT | | + + + + + | Respiratory Rate | 14 | 01/26/2019 2:59 PM | | | | | PDT | | + + + + + | Oxygen Saturation | 97% | 01/26/2019 2:59 PM | | | | | PDT | | + + + + + | Inhaled Oxygen | - | - | | | Concentration | | | | + + + + + | Weight | 71.4 kg (157 lb 6.5 | 01/26/2019 2:59 PM | | | | oz) | PDT | | + + + + + | Height | 162.6 cm (5' 4") | 01/26/2019 2:59 PM | | | | | PDT | | + + + + + | Body Mass Index | 27.02 | 01/26/2019 2:59 PM | | | | | PDT | | + + + + + documented in this encounter Progress Notes Abrahan Samaniego MD - 01/26/2019 3:15 PM PDT Subjective: Patient ID: Oliva Vogt is a 68 y.o. female. Vertical Diplopia: she has had episodes for about about 6 weeks during which she has second s of double vision. It is a horizontal and slightly vertical diplopia in which the images se em offset. It is disturbing for her so she is quiet, closes her eyes for a few seconds (less than 10) and then is gone. She went to the eye doctor (Dr Meyers). He didn't think that anyt valeria was obviously abnormal though she is still awaiting visual field testing. It kept up so she went to the ER. She didn't have any imaging. She says that she felt she would make it b jessica if she blinked several times. SHe says that it resolved and has been gone for several weeks now. She says that there are times that she feels like it might happen she will stair ahead and it doesn't happen. She has no headaches. LEFT HAND PAIN: Intermittent for months. She will feel it at the base of her palm and she w ill feel it when she pushes a door open, takes a lid off of a jar, lifting a pot off of the stove. Doesn't have to take medication for it. She either avoids doing things that bother and it is ok. She is right handed. PANHYPOPIT: She was on omnitrope. She thought that maybe the eye issues were secondary to the medication. She wonders if it will be ok to go back on it. She has an appt with Dr Yaya yeung tomorrow. No headaches CHEST PAIN: Had angio with mild disease. Patient's medications, allergies, past medical, surgical, social and family histories were obtained and reviewed as appropriate. ROS No chest pain, palpitations, shortness of breath, orthopnea, PND, lightheadedness, syncope, near syncope, exertional pain in the arm/jaw/shoulder/back, peripheral edema. Denies hemoptysis, productive cough, wheezing, shortness of breath, dyspnea on exertion. Denies heat or cold intolerance, change in hair/skin/nails or bowel habits, polyuria, polyd ipsia, headache, weakness, weight gain/loss Objective:BP 120/64 | Pulse 84 | Temp 36.4 C (97.5 F) (Temporal) | Resp 14 | Ht 1.6 26 m (5' 4") | Wt 71.4 kg (157 lb 6.5 oz) | SpO2 97% | BMI 27.02 kg/m Physical Exam GEN: No acute distress. HEENT:EOMI, OP normal CHEST: Clear to auscultation. No wheezes, rales, rhonchi. Normal effort and movement CAR: Rhythm:regular Murmur:no Crumrod:no JVP:no Pulses:normal radial and carotid ABD: non-distended, non-tender. No hepatosplenomegaly EXT: No clubbing, cyanosis, or edema LEFT HAND/WRIST: Normal range of motion of the wrist. No effusion. Seems to have some ten derness over the scaphoid. There is no swelling. There is also some crepitus at the [facility] denn[place] int of the thumb but she denies tenderness there or pain. Normal range of motion of the brenda mb. Assessment/Plan: 1. Stage 3 chronic kidney disease (HCC) recent renal function slightly decreased on 019. 2. Left hand pain XR Hand Left 2 Vw Went over the anatomy of the hand Further evaluation, work-up, and treatment to follow 3. 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 I fully support Dr. Zee's vision for Omnitrope if she feels it is appropriate. 4. Atypical chest pain patient had mild disease on coronary angiogram. Chest pain was always atypical. Do not think that she has coronary spasm or angina. She w ould like to stay on her current dose of statin. Agreed. 5. Other osteoporosis without current pathological fracture she worked hard to pin me qamar n on what I would recommend for her osteoporosis today. Given her significant endocrine issues, this is best left to the expertise of a board-certi ed pre k lead teacher whom she is seeing tomorrow. 6. Diplopia: She had very transient diplopia which sounds like it was a mix of vertical an d horizontal. She has not had further advanced imaging. 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 She is going to be seeing Dr. Meyers who is doing visual garcía. She has not had this happen in weeks. I do not think at this point she needs further evaluation, work-up, or treatment unless Dr. Zee feels otherwise. documented in this enc ounter Plan of Treatment +--------+---------+ + + + | Date | Type | Specialty | Care Team | Description | +--------+---------+ + + + | 04/29/ | Office | Internal Medicine | Abrahan Samaniego MD | | | 2019 | Visit | | [address] [place] [address] | | | | | | [place] | | | | | | [address] | | | | | | | | +--------+---------+ + + + | 07/25/ | Office | Cardiology | Renetta, | | | 2020 | Visit | | [facility] [address] | | | | | | [employer] [place], | | | | | | [place] [address] | | | | | | [phone] | | | | | | | | +--------+---------+ + + + | 09/03/ | Office | Endocrinology | Cheryl Zee MD | | | 2020 | Visit | | [address] [place] [address] | | | | | | [address] [place] | | | | | | [phone] | | | | | | | | +--------+---------+ + + + documented as of this encounter Results XR Hand Left 2 [...] + | Diagnosis | + + | Stage 3 chronic kidney disease (HCC) - Primary | + + | Left hand pain Pain in limb | + + | Hypopituitarism (HCC) Panhypopituitarism | + + | Atypical chest pain Other chest pain | + + | Other osteoporosis without current pathological fracture | + + documented in this encounter
--- OUTSIDE RECORDS SUMMARY | ~2020-01-04 | XMS | Encounter Summary ---
Demographics + + + | Address | [address] | | | [place] [address] | + + + | Home Phone | | + + + | Preferred Language | Unknown | + + + | Marital Status | | + + + | Anabaptist Affiliation | [id number] | + + + | Race | Unknown | + + + | Ethnic Group | Unknown | + + + Author + + + | Author | [facility] | | | and [place] | + + + | Organization | [facility] | | [...] [place], | | | | | [place] [address] | | + + + + + | Ryan Vogt | ECON | Unknown | | + + + + + | Rob Vogt | ECON | Unknown | | + + + + + Care Team Providers + +------+ + | Care Mixer Operator Hot Metal Name | Role | Phone | + +------+ + PCP | Unavailable | + +------+ + Encounter Details +--------+ + + + + | Date | Type | Department | Care Team | Description | +--------+ + + + + | 07/27/ | Hospital | [facility] | Ifeanyi Romo, | | | 2007 - | Encounter | MED CTR GENERIC OP | MD [address] | | | | | CONV DEPT [address] | [place] | | | / | | [place], | [address] | | | 2007 | | [place] [address] | | | | | | [phone] | | | +--------+ + + + [...] | | 2020 | Visit | | [address] [place] [address] [place] | | | | | | [place] | | | | | | [address] | | | | | | | | +--------+---------+ + + + | 07/25/ | Office | Cardiology | Renetta | | | 2020 | Visit | | [facility] [address] | | | | | | [place] | | | | | | [place] [address] | | | | | | [phone] | | | | | | | | +--------+---------+ + + + | 09/03/ | Office | Endocrinology | Cheryl Zee MD | | | 2020 | Visit | | [address] [place] [address] | | | | | | [address] [place] | | | | | | [address] | | | | | | | | +--------+---------+ + + + documented as of this encounter Visit Diagnoses Not on filedocumented in this encounter"
--- OUTSIDE RECORDS SUMMARY | ~2020-01-04 | XMS | Encounter Summary ---
Demographics + + + | Address | [address] | | | [place] [address] | + + + | Home Phone [...] Author | [facility] [place] [...] [place], | | | | | [place] [address] | | + + + + + | Ryan Vogt | ECON | Unknown | | + + + + + | Rob Vogt | ECON | Unknown | | + + + + + Care Team Providers + +------+ + | Care General Operations Agent Name | Role | Phone | + +------+ + | Abrahan Samaniego MD | PCP | | + +------+ + Reason for Visit + + + | Reason | Comments | + + + | Hypopituitarism | follow up- hyperparathyroidism | + + + Evaluate & Treat [...] | | roidism | [address] | [place] [address] | | | | | ([facility]) | [place], | [place] | | | | | Osteoporosis | [place] [address] | [address] Phone: | | | | | , | Phone: | [phone] | | | | | unspecified | [phone] | Fax: | | | | | osteoporosis | Fax: | [phone] | | | | | type, | [phone] | | | | | | unspecified | | | | | | | pathological | | | | | | | fracture | | | | | | | presence | | | | | | | Panhypopitui | | | | | | | tarism ([facility]) | | | +--------+ + + + + + Encounter Details +--------+---------+ + + + | Date | Type | Department | Care Team | Description | +--------+---------+ + + + | 09/19/ | Office | [facility] | Cheryl Zee MD | Secondary | | 2019 | Visit | [facility] [place] | [address] [place] | hyperparathyroidism | | | | ENDOCRINOLOGY [address] | [address] [place] [address] | ([facility]) (Primary Dx); | | | | [address] [place] [address] | [address] | Secondary adrenal | | | | [place] | | insufficiency (HCC); | | | | [id number] | | Other osteoporosis | | | | [phone] | | without current | | | | | | pathological | | | | | | fracture; Stage 3 | | | | | [...] + + + | Blood Pressure | 128/90 | 09/19/2018 8:01 AM | | | | | PDT | | + + + + + | Pulse | 67 | 09/19/2018 8:01 AM | | | | | PDT | | + + + + + | Temperature | - | - | | + + + + + | Respiratory Rate | 16 | 09/19/2018 8:01 AM | | | | | PDT | | + + + + + | Oxygen Saturation | - | - | | + + + + + | Inhaled Oxygen | - | - | | | Concentration | | | | + + + + + | Weight | 69.9 kg (154 lb) | 09/19/2018 8:01 AM | | | | | PDT | | + + + + + | Height | 160 cm (5' 3") | 09/19/2018 8:01 AM | | | | | PDT | | + + + + + | Body Mass Index | 27.28 | 09/19/2018 8:01 AM | | | | | PDT | | + + + + + documented in this encounter Patient Instructions Patient Instructions Cheryl Zee MD - 09/19/2018 8:10 AM PDT- please cut back salt, ch skyler BP daily, see PCP to f/u high BP and vertigo Please check with Dr Samaniego when you are due for age appropriate cancer screenings, if al l updated, may try HGH, need normal BP level After BP improved, ok to try prednisone 6 mg daily ( possibly tendency of dehydration relat ed to your adrenal replacement) _get bone density continue: one calcium pill/day (600 -800 mg total diet and pill) and 1000 IU vit D Return 3 months documented in this encounter Progress Notes Cheryl Zee MD - 09/19/2018 8:10 AM PDT Patient Name: Oliva Vogt : 1950 Age: 68 y.o. Sex: female Referring Provider: Abrahan Samaniego MD PCP: Abrahan Samaniego MD Date of Service: 09/19/2018 Chief Complaint Patient presents with Hypopituitarism follow up- hyperparathyroidism History of presenting illness Oliva Vogt is a 68 y.o. female who presents for Hypopituitarism (follow up- hyp erparathyroidism) She reports: She returns after she completed multiple tests. August 22, 2018 urinary calcium was 316/20 4 hours. LDL 103 prolactin 1.9 IGF-I 31 potassium 3.5 liver test normal free T4 1 TSH 0.05 celiac screen negative PTH 78 vitamin D 38 potassium 2.5 calcium 9.8 albumin 4.2 Noted today blood pressure is elevated, admits that she has been eating more salt, also has developed vertigo Reports she takes 500 mg of calcium and 1000 units of vitamin D; she works part-time, she a dmits to personal stress after her August 2018 after prolonged illness. He is very compliant with levothyroxine 100 mcg daily and prednisone 5 mg daily. She admit s that she is always thirsty and she drinks a lot of water. She would like to start growth hormone treatment if possible; she feels that she may benefi t from this because she is always tired has tendency for central weight gain, experienced amado ne loss. She has history of Guero syndrome, [...] IU vitamin D Daily- started last w [place]. Dairy intake is one serving daily . [...] while, restarted vitamin D on ly recently. Problem List Chronic kidney disease (CKD) Overview ICD-10 Record update Other osteoporosis without current pathological fracture Secondary adrenal insufficiency Secondary hyperparathyroidism Review of Systems Constitutional: Negative. HENT: Positive for tinnitus. Eyes: Negative. Respiratory: Negative. Cardiovascular: Positive for leg swelling. Gastrointestinal: Negative. Genitourinary: Negative. Musculoskeletal: Positive for joint pain. Skin: Negative. Neurological: Positive for dizziness. Endo/Heme/Allergies: Negative. Psychiatric/Behavioral: Negative. Past Medical History: Diagnosis Date [...] N/A; Surgeon: Shaji Thornton MD; Location: [facility] MEDICAL PROCEDU RE UNIT CYST REMOVAL [...] by mouth AT NIGHT 90 tablet 3 Ravqmyq-Ejyhwymve-Gmmsnbx D (CALCIUM MAGNESIUM PO) Take by mouth. [...] tablet 4 predniSONE (DELTASONE) 5 mg tablet One daily most days, increase to 3 tabs daily for 3 days when sick 120 tablet 4 No current facility-administered medications for this visit. Allergies Allergies Allergen Reactions Succinylcholine Chloride Other (See Comments) Hard to wake up Labs review Recent Labs 08/16/18 0827 NA 141 K 3.5 CO2 30 BUN 17 CREA 1.00 GLU 82 BILITOT 0.7 AST 20 ALT 24 ALKPHOS 80 TSH 0.05* Hematology: Recent Labs 08/16/18 0827 HGB 14.8 HCT 44.1 WBC 7.1 PLT 300 NEUPCT 54.0 TSH Date Value Ref Range Status 08/16/2018 0.05 (L) 0.55 - 4.78 uIU/mL Final 08/18/2014 0.04 (L) 0.34 - 5.60 uIU/mL Final Comment: All TSH samples are screened using a 2nd Generation test, and are reflexed to a 3rd Gener ation test if indicated. 08/05/2011 0.04 (L) 0.34 - 5.60 uIU/mL Final Comment: @HAS LTSH QC BEEN RUN? YES Testing performed on the Latinda Access Analyzer. Physical Examination BP supine: 160/90 HR supine: 62 BP sittin/98 HR sittin BP standin/96 HR standin Vs: BP 128/90 | Pulse 67 | Resp 16 | Ht 1.6 m (5' 3") | Wt 69.9 kg (154 lb) | Breastf eeding? No | BMI 27.28 kg/m General: Well-developed and well-nourished, in no [...] judgment and insight. Assessment & Plan 1. Secondary hyperparathyroidism (HCC) 2. Secondary adrenal insufficiency (HCC) predniSONE (DELTASONE) 1 mg tablet 3. Other osteoporosis without current pathological fracture DEXA Bone Density wo Vert Fx A ssmt 4. Stage 3 chronic kidney disease (HCC) I advised that most likely cause of her mild PTH elevation is secondary hyperparathyroidism in setting of CKD 3. Discussed appropriate calcium and vitamin D, would like to avoid excessive calcium intake; we will repeat bone density looking for ongoing bone loss. 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 Advised that first she needs follow-up of her elevated blood pressure, also needs age-appro priate cancer screening and she will discussed with Dr. Samaniego and let me know after the vi sit with him if blood pressure normalized and when she is due for colonoscopy. She will continue the same dose of thyroid replacement. Plan: - please cut back salt, check BP daily, see PCP to f/u high BP and vertigo Please check with Dr Samaniego when you are due for age appropriate cancer screenings, if al l updated, may try HGH, need normal BP level After BP improved, ok to try prednisone 6 mg daily ( possibly tendency of dehydration relat ed to your adrenal replacement) _get bone density continue: one calcium pill/day (600 -800 mg total diet and pill) and 1000 IU vit D Return 3 months Cheryl Zee MD on 09/19/2018 at 12:42 documented in this enc ounter Plan of Treatment +--------+---------+ + + + | Date | Type | Specialty | Care Team | Description | +--------+---------+ + + + | 04/29/ | Office | Internal Medicine | Abrahan Samaniego MD | | | 2019 | Visit | | [address] [place] [address] | | | | | | [place] | | | | | | [address] | | | | | | | | +--------+---------+ + + + | 07/25/ | Office | Cardiology | [place], | | | 2020 | Visit | | [facility] [address] | | | | | | [place] | | | | | | [place] [address] | | | | | | [phone] | | | | | | | [...] | | + +---------+--------+ + + | DEXA Bone Density wo | Imaging | Routin | Other osteoporosis | Ordered: 09/19/2018 | | Vert Fx Assmt | | e | without current | | | | | | pathological | | | | | | fracture | | + +---------+--------+ + + documented as of this encounter Visit Diagnoses + + | Diagnosis | + + | Secondary hyperparathyroidism (HCC) - Primary Secondary hyperparathyroidism (of renal | | origin) | + + | Secondary adrenal insufficiency (HCC) Glucocorticoid deficiency | + + | Other osteoporosis without current pathological fracture | + + | Stage 3 chronic kidney disease (HCC) | + + documented in this encounter
--- OUTSIDE RECORDS SUMMARY | ~2020-01-04 | XMS | Encounter Summary ---
Demographics + + + | Address | [address] | | | [place] [address] | + + + | Home Phone [...] | Author | [facility] [place] | [...] [place], | | | | | [place] [address] | | + + + + + | Ryan Vogt | ECON | Unknown | | + + + + + | Rob Vogt | ECON | Unknown | | + + + + + Care Team Providers + +------+ + | Care Statement Services Representative Name | Role | Phone | + +------+ + | Abrahan Samaniego MD | PCP | | + +------+ + Encounter Details +--------+ + + + + | Date | Type | Department | Care Team | Description | +--------+ + + + + | 01/28/ | Abstract | [facility] | Abrahan Samaniego MD | | | 2014 | | MEDICINE [address] | [address] [facility] | | | | | [place], | [place] | | | | | [place] [address] | [address] | | | | | [phone] | | | +--------+ + + + [...] | | | | | | [place] [address] | | | | | | [phone] | | | | | | | | +--------+---------+ + + + | 09/03/ | Office | Endocrinology | Cheryl Zee MD | | | 2020 | Visit | | [address] | | | | | | [address] [place] [address] | | | | | [...] | DEXA BONE DENSITY | Routin | 09/24/2014 | | Results for this | | STUDY MARK DOMINIQUEErica HUGHES | e | | | procedure are in the | | ASSESSMENT | | | | results section. | + +--------+ + + + documented in this encounter Results DEXA Bone Density Study MARK Dominiqueerica Woodruff (09/24/2014) + +-------+ + + + | Component | Value | Ref Range | Performed | Pathologist | | | | | At | Signature | + +-------+ + + + | EXT LOWEST | -2.5 | | | | | T-SCORE | | | | | + +-------+ + + + documented in this encounter Visit Diagnoses Not on filedocumented in this encounter"
--- OUTSIDE RECORDS SUMMARY | ~2020-01-04 | XMS | Encounter Summary ---
Demographics + + + | Address | [address] | | | [place] [address] | + + + | Home Phone [...] + | Author | [facility] [place] | | | and [place] | [...] [place], | | | | | [place] [address] | | + + + + + | Ryan Vogt | ECON | Unknown | | + + + + + | Rob Vogt | ECON | Unknown | | + + + + + Care Team Providers + +------+ + | Care Medical Researcher Name | Role | Phone | + +------+ + | Abrahan Samaniego MD | PCP | | + +------+ + Reason for Visit + + + | Reason | Comments | + + + | Hypopituitarism | Follow-up. | + + + Encounter Details +--------+---------+ + + + | Date | Type | Department | Care Team | Description | +--------+---------+ + + + | 12/04/ | Office | [facility] | Cheryl Zee MD | Panhypopituitarism | | 2020 | Visit | [facility] [place] | [address] [place] | ([facility]) (Primary Dx); | | | | ENDOCRINOLOGY [address] | [address] [place] [address] | Secondary adrenal | | | | [address] [place] [address] | [address] | insufficiency ([facility]); | | | | [place] | | Secondary | | | | [address] | | hyperparathyroidism | | | | [phone] | | ([facility]); Secondary | | | | | [...] | | | | fracture presence | +--------+---------+ + + + Social History [...] + + + | Blood Pressure | 160/74 | 12/05/2019 1:16 PM | | | | | PDT | | + + + + + | Pulse | 75 | 12/05/2019 1:16 PM | | | | | PDT | | + + + + + | Temperature | 36.8 C (98.2 F) | 12/05/2019 1:16 PM | | | | | PDT | | + + + + + | Respiratory Rate | - | - | | + + + + + | Oxygen Saturation | 98% | 12/05/2019 1:16 PM | Room air. | | | | PDT | | + + + + + | Inhaled Oxygen | - | - | | | Concentration | | | | + + + + + | Weight | 71.2 kg (157 lb) | 12/05/2019 1:16 PM | | | | | PDT | | + + + + + | Height | - | - | | + + + + + | Body Mass Index | 27.81 | 09/15/2019 9:17 AM | | | | | PDT | | + + + + + documented in this encounter Patient Instructions Patient Instructions Cheryl Zee MD - 12/05/2019 1:10 PM PDTPlease continue same medic ations and supplements Get bone density after mid December and discuss with me Get alkaline phosphatase lab in 3 months Return in spring1 documented in this encounter Progress Notes Cheryl Zee MD - 12/05/2019 1:10 PM PDT Patient Name: Oliva Vogt : 1950 Age: 69 y.o. Sex: female Referring Provider: No ref. provider found PCP: Abrahan Samaniego MD Date of Service: 12/05/2019 Chief Complaint Patient presents with Hypopituitarism Follow-up. History of presenting illness Oliva Vogt is a 69 y.o. 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 She thinks she feels better on growth hormone, stronger and more active. She is working; h e walks a quarter of a mile every day. She continues to take vitamin D and she gets calcium from the diet Has not received yet osteoporosis treatment She would like to continue growth hormone therapy , also feels that prednisone 6 mg daily w orks better for her. Most recent test from November 20, 2019 show IGF-I 141 vitamin D 51 phosphorus 3.7 PTH 67 and c alcium level at 10 creatinine 0.85 free T4 1.4 Alkaline phosphatase remains elevated at 144 Bone scan did not show abnormalities except for arthritis changes. Bone alkaline phosphata se was elevated MRI pituitary reviewed: 03/08/2019 3:08 PM IMPRESSION [...] diplopia- intermittent, lasting seconds. She had ophthalmology visit,n o abnormality was found and visual field testing was plannedand she saw her primary care f[facility]raz[facility]. She had cardiovascular evaluationbecause she has chest pain and SOB when walkingto go t owork; mild coronary artery disease with normal ejection fractionwas found after she had an angiogram and cardiac echo; she told she may have had cardiovascular spasm. She was ad vised to continue high potencystatin. She has hypertension and she takes low-dose amlodipine. She reports weight gain, leg swelling, easy bruising and tinnitus; no headaches. She completed multiple testsand we reviewed the results Test results reviewed [...] compliant with levothyroxine 100 mcg daily and qdxqlwiate4ta daily.She admits that she is always thirsty and she [...] score at the femoral neck T score -2.7,read as stable compared with previous result 08/2017, which showed [...] magnesiumand 2,000 IUvitamin D Daily- started l week. Dairy intake isone serving daily. Medications [...] had episode of adrenal insufficiency requiring hospital visitfew years ago, presented with fever, low BP. Has Medic Alert ID, she knows the rules of stress dose steroids. The patient hasnopast treatment of osteoporosis . Review of Systems Constitutional: Negative. Weight gain HENT: Positive for tinnitus. Eyes: Negative. Respiratory: Negative. Cardiovascular: Positive for palpitations. Gastrointestinal: Negative. Genitourinary: Negative. Musculoskeletal: Negative. Skin: Negative. Neurological: Negative. Endo/Heme/Allergies: Negative. Psychiatric/Behavioral: Negative. Past Medical History: [...] CV LHC; Surgeon: Benigno Deras MD; Location: [facility] CV LAB CHOLECYSTECTOMY COLONOSCOPY 03/12/2014 COLONOSCOPY; Laterality: N/A; Surgeon: Shaji Thornton MD; Location: [facility] MEDICAL PROCEDU RE UNIT CYST REMOVAL Left 1969 ENDOMETRIAL BIOPSY 2006 Benign KNEE ARTHROSCOPY Right 06/02/2019 Procedure: RIGHT KNEE ARTHROSCOPY AND DEBRIDEMENT, partial lateral meniscectomy, partial m edial meniscectomy, medial femoral chondroplasty, and patellar chondroplasty; Surgeon: Vj Watkins MD; Location: [facility] MAIN OR Skull Biopsy 09/28/2011 (Benign) TUBAL [...] by mouth Daily. 90 tablet 3 aspirin (ASPIRIN) 81 MG EC tablet Take 81 mg by mouth Daily. atorvaSTATin (LIPITOR) 20 mg tablet Take 1 tablet by mouth nightly. 90 tablet 3 cholecalciferol (CHOLECALCIFEROL) 1000 units TABS Take 1 tablet by mouth Daily. levothyroxine (SYNTHROID) 100 mcg tablet Take 1 tablet by mouth every morning (before b reakfast). 90 tablet 4 Multiple Vitamins-Minerals (ONE DAILY MULTIVITAMIN WOMEN) TABS Take 1 tablet by mouth D aily. potassium chloride (KLOR-CON) 10 mEq CR tablet take 1 tablet by mouth once daily 90 tab let 3 predniSONE (DELTASONE) 1 mg tablet One daily for total 6 mg daily. 90 tablet 4 predniSONE (DELTASONE) 5 mg tablet take 1 tablet by mouth daily MOST DAYS INCREASE TO 3 tablets daily for 3 days WHEN SICK. 120 tablet 4 Somatropin (OMNITROPE) 5.8 MG [...] for a prolonged period after her procedure. Labs review Recent Labs 11/20/19 1531 01/10/19 0804 NA 143 < > 143 K 3.9 < > 3.7 CO2 26 < > 27 BUN 23 < > 17 CREA 0.85 < > 1.16* GLU 108* < > 85 BILITOT 0.3 < > 0.7 AST 18 < > 20 ALT 18 < > 37 ALKPHOS 144* < > 72 TSH -- -- 0.01* < > = values in this interval not displayed. Hematology: Recent Labs 05/23/19 1620 11/10/18 1116 HGB 13.9 14.3 HCT -- 43.1 WBC -- 8.1 PLT -- 296 NEUPCT -- 49.7 TSH Date Value Ref Range Status 01/10/2019 0.01 (L) 0.55 - 4.78 uIU/mL Final 08/16/2018 0.05 (L) 0.55 - 4.78 uIU/mL Final 08/18/2014 0.04 (L) 0.34 - 5.60 uIU/mL Final Comment: All TSH samples are screened using a 2nd Generation test, and are reflexed to a 3rd Gener ation test if indicated. Physical Examination Vs: BP 160/74 | Pulse 75 | Temp 36.8 C (98.2 F) | Wt 71.2 kg (157 lb) | SpO2 98% C omment: Room air. | BMI 27.81 kg/m General: Well-developed and well-nourished, in no [...] judgment and insight. Assessment & Plan 1. Panhypopituitarism (HCC) Comprehensive Metabolic Panel Somatropin (OMNITROPE) 5.8 MG SOLR 2. Secondary adrenal insufficiency (HCC) predniSONE (DELTASONE) 5 mg tablet predniSONE (DELTASONE) 1 mg tablet 3. Secondary hyperparathyroidism (HCC) 4. Secondary hypothyroidism levothyroxine (SYNTHROID) 100 mcg tablet 5. High alkaline phosphatase level Comprehensive Metabolic Panel 6. 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 She has developed elevated bone alkaline phosphatase after growth hormone was started but her bone scan does not show any guajardo spicious lesion. We will check bone mineral density repeat bone alkaline phosphatase in few months. If alkaline phosphatase continue to increase we will stop growth hormone. She will continue the same hormone replacement for now, will contact her when bone mineral density is resulted Please continue same medications and supplements Get bone density after mid December and discuss with me Get alkaline phosphatase lab in 3 months Return in Spring 2020 Cheryl Zee MD on 12/05/2019 at 8:53 PM PDT documented in this enc ounter Miscellaneous Notes Result QuickNote - Cheryl Zee MD - 12/05/2019 1:10 PM PDTPlease note that your bone m ineral density shows osteoporosis based on the reading of your wrist area, bone density is m ildly improved. Should still consider treatment with Reclast as we discussed. Please contact me after you have repeat blood test for alkaline phosphatase Best regards, MCosma do cumented in this encounter Plan of Treatment +--------+---------+ + + + | Date | Type | Specialty | Care Team | Description | +--------+---------+ + + + | 04/29/ | Office | Internal Medicine | Abrahan Samaniego MD | | 2019 | Visit | | [address] [place] [address] | | | | | | [place] | | | | | | [address] | | | | | | | | +--------+---------+ + + + | 07/25/ | Office | Cardiology | [place], | | | 2020 | Visit | | [facility] [address] | | | | | | [place] | | | | | | [place] [address] | | | | | | [phone] | | | | | | | [...] | | + +------+--------+ + + | Comprehensive | Lab | Routin | Panhypopituitarism | 1 Occurrences | | Metabolic Panel | | e | (HCC) High | starting 12/05/2019 | | | | | alkaline phosphatase | until 12/04/2020 | | | | | level | | | | | | Osteoporosis, | | | | | | unspecified | | | | | | osteoporosis type, | | | | | | unspecified | | | | | | pathological | | | | | | fracture presence | | + +------+--------+ + + documented as of this encounter Procedures + +--------+ + + + | Procedure Name | Priori | Date/Time | Associated Diagnosis | Comments | | | ty | | | | + +--------+ + + + | DEXA BONE DENSITY | Routin | 12/29/2019 | Osteoporosis, | Results for this | | STUDY [facility] [place] FX | e | 11:29 AM | unspecified | procedure are in the | | ASSESSMENT | | PDT | osteoporosis type, | results section. | | | | | unspecified | | | | | | pathological | | | | | | fracture presence | | + +--------+ + + + documented in this encounter Results DEXA Bone Density wo [place] Fx Assmt [...] Procedure Note | + + | Vishnu, [id number] - 12/29/2019 11:50 AM PDT DEXA BONE [...] at or below -2.5 SDElectronically signed by Florence Peña MD 12/29/2019 11:47 AM | | | |Bone [...] + + | Performing | Address | City/State/[place] [facility] | Phone Number | | Organization | | | | + +---------+ + + | [facility] | | | | + +---------+ + + documented in this encounter Visit Diagnoses + + | Diagnosis | + + | Panhypopituitarism (HCC) - Primary Panhypopituitarism | + + | Secondary adrenal insufficiency (HCC) Glucocorticoid deficiency | + + | Secondary hyperparathyroidism (HCC) Secondary hyperparathyroidism (of renal origin) | + + | Secondary hypothyroidism Other specified acquired hypothyroidism | + + | High alkaline phosphatase level | + + | Osteoporosis, unspecified osteoporosis type, unspecified pathological fracture | | presence | + + documented in this encounter"
--- OUTSIDE RECORDS SUMMARY | ~2020-01-04 | XMS | Encounter Summary ---
Demographics + + + | Address | [address] | | | [place] [address] | + + + | Home Phone | | + + + | Preferred Language | Unknown | + + + | Marital Status | | + + + | Faith Affiliation | 1027 | + + + | Race | Unknown | + + + | Ethnic Group | Unknown | + + + Author + + + | Author | [facility] | | | and [place] | + + + | Organization | [facility] | | | [...] [place], | | | | | [place] [address] | | + + + + + | Ryan Vogt | ECON | Unknown | | + + + + + | Rob Vogt | ECON | Unknown | | + + + + + Care Team Providers + +------+ + | Care Snow Shoveler Name | Role | Phone | + [...] Description | +--------+--------+ + + + | 08/26/ | Refill | [facility] | Abrahan Samaniego MD | Medication Refill | | 2018 | | MEDICINE [address] [place] [address] | [address] [place] [address] | | | | | [place], | [place] | | | | | [place] [address] | [address] | | | | | [phone] | | | +--------+--------+ + + + [...] | 2019 | Visit | | [address] [place] [address] | | | | | | [place] | | | | | | [address] | | | | | | | | +--------+---------+ + + + | 07/25/ | Office | Cardiology | Renetta, | | | 2020 | Visit | | [facility] [address] | | | | | | [place] | | | | | | [place] [address] | | | | | | [phone] | | | | | | | | +--------+---------+ + + + | 09/03/ | Office | Endocrinology | Cheryl Zee MD | | | 2020 | Visit | | [address] [place] | | | | | | [address] [place] | | | | | | [address] | | | | | | | | +--------+---------+ + + + documented as of this encounter Visit Diagnoses Not on filedocumented in this encounter"
--- OUTSIDE RECORDS SUMMARY | ~2020-01-04 | XMS | Encounter Summary ---
Demographics + + + | Address | [address] | | | [place] [address] | + + + | Home Phone [...] + | Author | [facility] | [...] [place], | | | | | [place] [address] | | + + + + + | Ryan Vogt | ECON | Unknown | | + + + + + | Rob Vogt | ECON | Unknown | | + + + + + Care Team Providers + +------+ + | Care Historic Sites Supervisor Name | Role | Phone | + +------+ + | Abrahan Samaniego MD | PCP | | + +------+ + Reason for Visit + +--------+ + | Reason | Onset | Comments | | | Date | | + +--------+ + | Medication Refill | 10/10/ | | | | 2018 | | + +--------+ + Encounter Details +--------+--------+ + + + | Date | Type | Department | Care Team | Description | +--------+--------+ + + + | 10/10/ | Refill | [facility] | Cheryl Zee MD | Medication Refill | | 2018 | | [place] | [address] [place] | | | | | ENDOCRINOLOGY [address] | [address] [place] | | | | | [address] [place] [address] | [id number] | | | | | [place] | | | | | | [address] | | | | | | [phone] | | | +--------+--------+ + + + [...] Miscellaneous Notes Telephone Encounter - Oliva Son, Leasing Property Manager - 10/10/2018 1:06 PM PDTDr. Zee Td up for review documented in this encounter Plan of Treatment +--------+---------+ + + + | Date | Type | Specialty | Care Team | Description | +--------+---------+ + + + | 04/29/ | Office | Internal Medicine | Abrahan Samaniego MD | | | 2019 | Visit | | [address] [place] [address] | | | | | | [place] | | | | | | [id number] | | | | | | | | +--------+---------+ + + + | 07/25/ | Office | Cardiology | Renetta, | | | 2020 | Visit | | [address] [address] | | | | | | [place] | | | | | | [place] [address] | | | | | | [phone] | | | | | | | | +--------+---------+ + + + | 09/03/ | Office | Endocrinology | Cheryl Zee MD | | | 2020 | Visit | | [address] [place] | | | | | | [address] [place] | | | | | | [address] | | | | | | | | +--------+---------+ + + + documented as of this encounter Visit Diagnoses Not on filedocumented in this encounter"
--- OUTSIDE RECORDS SUMMARY | ~2020-01-04 | XMS | Encounter Summary ---
Demographics + + + | Address | [address] | | | [place] [address] | + + + | Home Phone [...] + | Author | [facility] | | | and [...] [place], | | | | | [place] [address] | | + + + + + | Ryan Vogt | ECON | Unknown | | + + + + + | Rob Vogt | ECON | Unknown | | + + + + + Care Team Providers + +------+ + | Care Green Coffee Blender Name | Role | Phone | + +------+ + | Abrahan Samaniego MD | PCP | | + +------+ + Reason for Visit +---------+--------+ + | Reason | Onset | Comments | | | Date | | +---------+--------+ + | Results | 02/05/ | | | | 2015 | | +---------+--------+ + Encounter Details +--------+ + + + + | Date | Type | Department | Care Team | Description | +--------+ + + + + | 02/05/ | Telephone | [facility] [place] [facility] | Abrahan Samaniego MD | Results | | 2015 | | MEDICINE [address] | [address] [facility] | | | | | [place], | [place] | | | | | [place] [address] | [address] | | | | | [phone] | | | +--------+ + + + [...] this encounter Miscellaneous Notes Telephone Encounter - DebNicanor Harry L - 02/07/2016 8:55 AM PDTLT left message yes terday for patient to take form to Dr. Monge. elephone Encounter - Christina Wilson LPN - 02/06/2016 9:59 AM PDTLeft message to call. elephone Encounter - Abrahan Samaniego MD - 02/06/2016 7:46 AM PDTX-ray of her wrist is normal except for arthri tis. If she would like to see the orthopedist, please put the referral in.Electronically si gned by Abrahan Samaniego MD at 02/06/2016 7:46 AM PDTdocumented in this encounter Plan of Treatment +--------+---------+ + + + | Date | Type | Specialty | Care Team | Description | +--------+---------+ + + + | 04/29/ | Office | Internal Medicine | Abrahan Samaniego MD | | | 2019 | Visit | | [address] [facility] [facility] | | | | | | [place] | | | | | | [address] | | | | | | | | +--------+---------+ + + + | 07/25/ | Office | Cardiology | Renetta, | | | 2020 | Visit | | [facility] [address] | | | | | | [place], | | | | | | [place] [address] | | | | | | [phone] | | | | | | | [...]
--- OUTSIDE RECORDS SUMMARY | ~2020-01-04 | XMS | Encounter Summary ---
Demographics + + + | Address | [address] | | | [place] [address] | + + + | Home Phone [...] Author | [facility] | | [...] [place], | | | | | [place] [address] | | + + + + + | Ryan Vogt | ECON | Unknown | | + + + + + | Rob Vogt | ECON | Unknown | | + + + + + Care Team Providers + +------+ + | Care Office Administrative Assistant Name | Role | Phone | + +------+ + | Abrahan Samaniego MD | PCP | | + +------+ + Reason for Visit +--------+--------+ + | Reason | Onset | Comments | | | Date | | +--------+--------+ + | Other | 12/11/ | | | | 2019 | | +--------+--------+ + Encounter Details +--------+ + + + + | Date | Type | Department | Care Team | Description | +--------+ + + + + | 12/11/ | Telephone | [facility] | Cheryl Zee MD | Other | | 2019 | | [place] | [address] [place] | | | | | ENDOCRINOLOGY [address] | [address] [place] | | | | | [address] [place] [address] | [id number] | | | | | [place] | | | | | | [address] | | | | | | [phone] | | | +--------+ + + + [...] Telephone Encounter - Liz Hirsch CMA - 12/13/2019 10:12 AM PDTCalled lab and they gave m e a fax number to send ICD codes to so they can add them to the original order. Done. 1:18 pm call LMOR for patient to not call me back. I have this taken care of for her.Elect ronically signed by Liz Hirsch CMA at 12/13/2019 1:19 PM PDTTelephone Encounter - Jerri Hirsch CMA - 12/13/2019 8:43 AM PDTCalled LMOR. Asked for who she called and spoke with. If she has a name and number of who I should contact that would be helpful. Otherwise I'll j ust try calling the lab the test was performed at. elephone Encounter - Smitha Faith - 12/12/2019 12:41 PM PDTFor matting of this note might be different from the original. Ok to leave detailed message:yes Comments/Concerns: pt is calling with questions about the coding on the vitamin D test she took. Billing told her to call our office to get the coding fixed so she doesn't get the ele l. Mychart: ACTIVATED PCP: Abrahan Samaniego MD Future Appointments: Future Appointments Date Time Provider Department Center 04/29/2020 1:30 PM Abrahan Samaniego MD [facility] 07/25/2020 1:30 PM Kimberly Jackson [facility] 09/03/2020 11:50 AM Cheryl Zee MD [facility] None documented in this encoun ter Plan of [...] | | | | | | [place] [address] | | | | | | [phone] | | | | | | | | +--------+---------+ + + + | 09/03/ | Office | Endocrinology | Cheryl Zee MD | | | 2020 | Visit | | [address] [place] | | | | | | [address] [place] | | | | | | [id number] | | | | | | | | +--------+---------+ + + + documented as of this encounter Visit Diagnoses Not on filedocumented in this encounter"
--- OUTSIDE RECORDS SUMMARY | ~2020-01-04 | XMS | Encounter Summary ---
Demographics + + + | Address | [address] | | | [place] [address] | + + + | Home Phone [...] | Author | [facility] | | | and [place] [...] [place], | | | | | [place] [address] | | + + + + + | Ryan Vogt | ECON | Unknown | | + + + + + | Rob Vogt | ECON | Unknown | | + + + + + Care Team Providers + +------+ + | Care Industrial Machine System Technician Name | Role | Phone | [...] Rehabilitatio | 723[address] | [address] | [place] | | | | n | (ICD-9-CM) - | STREET | [place], | | | | | Cervicalgia | [place], | [place] [address] | | | | | Procedures | [place] [address] | Phone: | | | | | pt pako | Phone: | [phone] | | | | | | [phone] | Fax: | | | | | | Fax: | [phone] | | | | | | [phone] | | +--------+ + + + + + Encounter Details +--------+---------+ + + + | Date | Type | Department | Care Team | Description | +--------+---------+ + + + | 08/06/ | Office | [facility] | Abrahan Samaniego MD | Cervicalgia (Primary | | 2015 | Visit | MED CTR THERAPY PT | [address] [facility] | Dx); Other | | | | OP [address] | [place] | congenital anomaly | | | | [place] | [address] | of spine; Impaired | | | | [address] | | mobility | | | | [phone] | Matthew Bedoya | | | | [...] encounter Progress Notes Matthew Bedoya, PT - 08/06/2014 1:54 PM PST [facility] CTR THERAPY PT OP [address] [place] [address] Physical Therapy Daily Treatment Note Date: 08/06/2014 Patient Information Patient Name: Oliva Vogt Date of : 1950 Age: 64 y.o. Encounter Diagnoses Code Name Primary? 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 Pain mostly with driving and also first thing in the morning. Pain Assessment Pain Scale Used: NUMERIC Pain Rating Pre Assessment: 2 Location: right side of neck Objective: Manual therapy with suboccipital release. Trigger point release to the paraspinals followe d with stretching. Joint mobs centrally at multiple cervical levels, unilaterally at the le ft side at facets to help with rotation. Manual cervical traction. Trigger point release to the upper traps on the right side, stretching. Assessment: Patient with reduction in pain, tightness. Plan: Manual therapy, exercises. Electronically signed by: Matthew Bedoya, PT, 08/06/2014 14:50 Patient Name: Oliva Maxwell Sin/: 1950/ documented in thi s encounter Plan of Treatment +--------+---------+ + + + | Date | Type | Specialty | Care Team | Description | +--------+---------+ + + + | 04/29/ | Office | Internal Medicine | Abrahan Samaniego MD | | | 2019 | Visit | | [address] [place] [address] | | | | | | [place] | | | | | | [address] | | | | | | | | +--------+---------+ + + + | 07/25/ | Office | Cardiology | Renetta, | | | 2020 | Visit | | [facility] [address] | | | | | | [place] | | | | | | [place] [address] | | | | | | [phone] | | | | | | | | +--------+---------+ + + + | 09/03/ | Office | Endocrinology | Cheryl Zee MD | | | 2020 | Visit | | [address] [place] | | | | | | [address] [place], [place] | | | | | | [...]
--- OUTSIDE RECORDS SUMMARY | ~2020-01-04 | XMS | Clinical Summary ---
Demographics + + + | Address | [address] | | | [place] [address] | + + + | Home Phone | | + + + | Preferred Language | Unknown | + + + | Marital Status | | + + + | Amish Affiliation | LDS | + + + | Race | White | + + + | Ethnic Group | Not or | + + + Author + + + | Author | NON REVENUE LOCATIONS | + + + | Organization | NON REVENUE LOCATIONS | + + + | Address | [...] Team Providers + +------+ + | Care Transfer Machine Operator Name | Role | Phone | + +------+ + | Abrahan Samaniego MD | PCP | | + +------+ + Source Comments ISATU is fully live on both EpicCare Ambulatory and EpicCare InPatient.[facility] Allergies + + + + + + | Active Allergy | Reactions | Severity | Noted | Comments | | | | | Date | | + + + + + + | Succinylcholine | | | 08/14/19 | | | | | | 12 | | + + + + + + Medications + + + +---------+------+------+-------+ | Medication | Sig | Dispensed | Refills | Star | End | Statu | | | | | | t | Date | s | | | | | | Date | | | + + + +---------+------+------+-------+ | predniSONE 5 mg | Take by mouth once | | 0 | | | Activ | | Oral Tablet | daily. | | | | | e | + + + +---------+------+------+-------+ | predniSONE 1 mg | Take by mouth once | | 0 | | | Activ | | Oral Tablet | daily. | | | | | e | + + + +---------+------+------+-------+ | THYROID ORAL | Take by mouth once | | 0 | | | Activ | | | daily. | | | | | e | + + + +---------+------+------+-------+ | CALCIUM ORAL | Take by mouth once | | 0 | | | Activ | | | daily. | | | | | e | + + + +---------+------+------+-------+ | ERGOCALCIFEROL, | Take by mouth once | | 0 | | | Activ | | VITAMIN D2, (VITAMIN | daily. 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 | + + Last Filed Vital Signs + + + + + | Vital Sign | Reading | Time Taken | Comments | + + + + + | Blood Pressure | 146/76 | 08/14/2011 10:49 AM | | | | | PST | | + + + + + | Pulse | 67 | 08/14/2011 10:49 AM | | | | | PST | | + + + + + | Temperature | 36.2 C (97.2 F) | 08/14/2011 10:49 AM | | | | | PST | | + + + + + | Respiratory Rate | 16 | 08/14/2011 10:49 AM | | | | | PST | | + + + + + | Oxygen Saturation | 100% | 08/14/2011 10:49 AM | | | | | PST | | + + + + + | Inhaled Oxygen | - | - | | | Concentration | | | | + + + + + | Weight | 67.2 kg (148 lb 1.6 | 08/14/2011 10:49 AM | | | | oz) | PST | | + + + + + | Height | 161.3 cm (5' 3.5") | 08/14/2011 10:49 AM | | | | | PST | | + + + + + | Body Mass Index | 25.82 | 08/14/2011 10:49 AM | | | | | PST | | + + + + + Plan of Treatment + + + + + | Health Maintenance | Due Date | Last Done | Comments | + + + + + | Pneumococcal | | | | | vaccination (1 of 2 | 5 | | | | - PCV13) | | | | + + + + + | Influenza (Flu) | | | | | vaccination (#1) | 9 | | | + + + + + Results Not on filefrom Last 3 Months Insurance + +--------+ +--------+ + +------+ | Payer | Benefi | Subscriber | Effect | Phone | Address | Type | | | t Plan | ID | tameka | | | | | | / | | Dates | | | | | | Group | | | | | | + +--------+ +--------+ + +------+ | BLUE CROSS BLUE | BCBS | [phone] | 06/07/19 | [phone] | [address] | PPO | | SHIELD | OUT OF | xx | 11-Pre | 8 | [address]6 | | | | STATE | | sent | | [place], | | | | | | | | [place] | | | | | | | | [id number] | | + +--------+ +--------+ + +------+ + +--------+ +--------+ + + | Guarantor Name | Accoun | Relation to | Date | Phone | Billing Address | | | t Type | Patient | of | | | | | | | | | | + +--------+ +--------+ + + | Oliva Vogt | Person | Self | [birth year] | [address] | | | [place] | | 1950 | [phone] | [place] | | | matilde | | | 0 (Home) | [address] | + +--------+ +--------+ + +
--- OUTSIDE RECORDS SUMMARY | ~2020-01-04 | XMS | Encounter Summary ---
Demographics + + + | Address | [address] | | | [place] [address] | + + + | Home Phone | | + + + | Preferred Language | Unknown | + + + | Marital Status | | + + + | Congregational Affiliation | 1027 | + + + | Race | Unknown | + + + | Ethnic Group | Unknown | + + + Author + + + | Author | [facility] | | | [...] [place], | | | | | [place] [address] | | + + + + + | Ryan Vogt | ECON | Unknown | | + + + + + | Rob Vogt | ECON | Unknown | | + + + + + Care Team Providers + +------+ + | Care Talend Etl Developer Name | Role | Phone | + +------+ + PCP | Unavailable | + +------+ + Encounter Details +--------+ + + + + | Date | Type | Department | Care Team | Description | +--------+ + + + + | 08/01/ | Hospital | [facility] | | | | 2007 | Encounter | MED CTR EMERGENCY | | | | | | CENTER [address] | | | | | | [place] | | | | | | [address] | | | | | | [phone] | | | +--------+ + + + [...] [place] | | | | | | [address] | | | | | | | | +--------+---------+ + + + | 07/25/ | Office | Cardiology | Renetta, | | | 2020 | Visit | | [facility] [address] | | | | | | [place] | | | | | | [place] [address] | | | | | | [phone] | | | | | | | [...]
--- OUTSIDE RECORDS SUMMARY | ~2020-01-04 | XMS | Encounter Summary ---
Demographics + + + | Address | [address] | | | [place] [address] | + + + | Home Phone [...] [facility] | | | and [place] [...] [place], | | | | | [place] [address] | | + + + + + | Ryan Vogt | ECON | Unknown | | + + + + + | Rob Vogt | ECON | Unknown | | + + + + + Care Team Providers + +------+ + | Care Galley Boy Name | Role | Phone | + +------+ + | Abrahan Samaniego MD | PCP | | + +------+ + Reason for Visit + +--------+ + | Reason | Onset | Comments | | | Date | | + +--------+ + | Medication Refill | 07/31/ | | | | 2016 | | + +--------+ + Encounter Details +--------+--------+ + + + | Date | Type | Department | Care Team | Description | +--------+--------+ + + + | 07/31/ | Refill | [facility] [place] [facility] | Abrahan Samaniego MD | Medication Refill | | 2016 | | MEDICINE [address] [place] [address] | [address] [facility] | | | | | [place], | [place] | | | | | [place] [address] | [id number] | | | | | [phone] | | | +--------+--------+ + + + [...] this encounter Miscellaneous Notes Telephone Encounter - Fannie Lew RN - 07/31/2016 4:[address] from [facility] for Atorvastatin, 10 mg, Daily. Last Refill: 10/01/15 Qty: 90 + 2 RF Last Visit: 02/13/16 Next Visit: None Last Lipid Panel: 05/27/15 Last CMP: 02/13/16 Patient was called and informed that she is due for a fasting Lipid Panel and needs to comp lete prior to refilling Atorvastatin. Patient has enough tablets to last through the weeken d and more (exact quantity unknown). Patient would like a call when lab has been ordered. Lab and Rx pending MD approval. documented in this encounter Plan of Treatment [...] [place] | | | | | | [address] | | | | | | | | +--------+---------+ + + + | 07/25/ | Office | Cardiology | Renetta, | | | 2020 | Visit | | [facility] [address] | | | | | | [place], | | | | | | [place] [address] | | | | | | [phone] | | | | | | | | +--------+---------+ + + + | 09/03/ | Office | Endocrinology | Cheryl Zee MD | | | 2020 | Visit | | [address] [place] | | | | | | [address] [place] | | | | | | [phone] | | | | | | | | +--------+---------+ + + + documented as of this encounter Results Lipid Panel (06/23/2017 11:53 AM PST) + + + + + + | Component | Value | Ref Range | Performed | Pathologist | | | | | At | Signature | + + + + + + | Triglycerid | 168 (H) | 35 - 160 mg/dL | [facility] | | | es | | | [facility] | | | | | | MEDICAL | | | | | | CENTER - | | | | | | LABORATORY | | + + + + + + | Cholesterol | 177 | 150 - 200 mg/dL | [facility] | | | | | | [facility] | | | | | | MEDICAL | | | | | | CENTER - | | | | | | LABORATORY | | + + + + + + | HDL | 56Comment: New HDL | 28 - 83 mg/dL | [facility] | | | | Reference Range as of | | [facility] | | | | February 14, 2015 | | MEDICAL | | | | Values may be 10-20% | | CENTER - | | | | lower with new, | | LABORATORY | | | | standardized method. | | | | + + + + + + | Chol/HDL | 3.2 | | [facility] | | | Ratio | | | [facility] | | | | | | MEDICAL | | | | | | CENTER - | | | | | | LABORATORY | | + + + + + + | LDL, | 87 | <=130 mg/dL | [facility] | | [...] [address] | [place] | [phone] | | [facility] | | [address] | | | - LABORATORY | | | | + + + + + documented in this encounter Visit Diagnoses + + | Diagnosis | + + | Hyperlipidemia, unspecified hyperlipidemia type - Primary | + + documented in this encounter"
--- OUTSIDE RECORDS SUMMARY | ~2020-01-04 | XMS | Encounter Summary ---
Demographics + + + | Address | [address] | | | [place] [address] | + + + | Home Phone [...] | Author | [facility] | | | and [place] [...] [place], | | | | | [place] [address] | | + + + + + | Ryan Vogt | ECON | Unknown | | + + + + + | Rob Votg | ECON | Unknown | | + + + + + Care Team Providers + +------+ + | Care Beader Name | Role | Phone | + +------+ + PCP | Unavailable | + +------+ + Encounter Details +--------+ + + + + | Date | Type | Department | Care Team | Description | +--------+ + + + + | 11/09/ | Hospital | [facility] | Ifeanyi Romo, | | | 2007 | Encounter | MED CTR LABORATORY | [address] | | | | | [address] | [place] | | | | | [place] | [address] | | | | | [address] | | | | | | [phone] | | | +--------+ + + + [...] [place] | | | | | | [address] | | | | | | | | +--------+---------+ + + + | 07/25/ | Office | Cardiology | Renetta | | | 2020 | Visit | | [facility] [address] | | | | | | [place], | | | | | | [place] [address] | | | | | | [phone] | | | | | | | | +--------+---------+ + + + | 09/03/ | Office | Endocrinology | Cheryl Zee MD | | | 2020 | Visit | | [address] | | | | | | [address] [place] | | | | | | [address] | | | | | | | | +--------+---------+ + + + documented as of this encounter Visit Diagnoses Not on filedocumented in this encounter"
--- OUTSIDE RECORDS SUMMARY | ~2020-01-04 | XMS | Encounter Summary ---
Demographics + + + | Address | [address] | | | [place] [address] | + + + | Home Phone | | + + + | Preferred Language | Unknown | + + + | Marital Status | | + + + | Lutheran Affiliation | LDS | + + + | Race | White | + + + | Ethnic Group | Not or | + + + Author + + + | Author | [facility] | + + + | Organization | [facility] | + + + | Address | [...] Team Providers + +------+ + | Care Aemt Name | Role | Phone | + +------+ + | Abrahan Samaniego MD | PCP | | + +------+ + Reason for Visit + + + | Reason | Comments | + + + | Pre-op evaluation | | + + + Encounter Details +--------+---------+ + + + | Date | Type | Department | Care Team | Description | +--------+---------+ + + + | 08/13/ | Office | Preoperative | Christiana Pickett | Frontal skull lesion | | 2011 | Visit | Medicine Clinic at | [facility] [employer] | (Primary Dx); Other | | | | [facility] 4th Floor [address] | | specified | | | | [address] | | pre-operative | | | | Mailcode: [id number] | | examination; | | | | [facility] | | Panhypopituitarism | | | | and Healing, | | ([facility]); Hx of renal | | | | Building 1[address]4th Floor | | failure; | | | | [place], [place] | | Pseudocholinesterase | | | | [phone] | | deficiency | | | | [phone] | | | +--------+---------+ + + + Anesthesia Record + + [...] in this encounter Patient Instructions Patient Instructions Christiana Pickett FNP - 08/14/2011 11:09 AM PSTPREOPERATIVE INSTRUC TIONS Do not eat or drink anything after midnight the night before surgery. TAKE the following medications with a sip of water on the morning of surgery: Prednisone as usual Thyroid as usual Do not take any Aspirin, vitamin E or non-steroidal anti-inflammatory (NSAIDs i.e. Advil , Aleve, Ibuprofen) or herbal supplements seven days prior to your surgery. These drugs may interfere with normal blood clotting and may cause excessive bleeding and bruising during or after the surgery. If you are taking Coumadin (warfarin), Plavix or any other blood thinners please let you r surgical team know as medication changes will be necessary. If you need a pain medication for general purposes, use Tylenol as directed. If you are in doubt about any medications that you are taking, please contact our office . Important Guidelines Do not shave the surgical area Do not smoke, drink alcohol or use recreational drugs for 24 hours before your surgery Do not eat any hard candy or chew gum after midnight the night before your surgery. Watch for any change in your health condition. Let your surgeon know right away if you do not feel well. Do not wear makeup, perfume, lotions or powder. Remove any nail chadian from at least one fingernail. Do not wear any jewelry to the hospital. Wear loose, comfortable clothing. Bring the case and solution for your contact lenses or wear your glasses. Leave all your valuables at home. Allow enough travel time so you re not late for your check in for surgery. Take a bath or shower and remember to shampoo your hair using your usual hair product be fore your arrival at the hospital. Please remember to brush your teeth the night before and the morning of your procedure. HIBICLENS GUIDE TO GENERAL SKIN CLEANSING AT HOME BEFORE SURGERY General Skin Cleansing Instructions: Hibiclens is not to be used on the head or face, keep out of the eyes, ears and mouth. Hibiclens is not to be used in the genital area. Hibiclens should not be used if you are allergic to chlorhexidine gluconate or any other in gredients in this preparation. *See Hibiclens label for full product information and precautions. When you bathe or shower the night before your surgery: If you plan to wash your hair, do so with your regular shampoo. Then rinse hair and body th oroughly to remove any shampoo residue. Wash your face with your regular soap or water only. Thoroughly rinse your body with warm water from neck down. Use Hibiclens as you would any other liquid soap. Please do not put the Hibiclens on a wash cloth, apply directly to the skin and wash gently. Apply the minimum amount of Hibiclens n ecessary to cover the skin. Leave the Hibiclens on your skin for 1 minute, then rinse off. Rinse thoroughly with warm water. Do not use your regular soap after applying and rinsing Hibiclens. When using Hibiclens for a second day in a row (morning of surgery, as soon as you wake up) : Shower/bathe again using Hibiclens in the same method as described above. Do not apply any lotions, deodorants, powders or perfumes to the body areas that have been cleaned with Hibiclens. Preventing post op complications Use an incentive spirometer or peep breathe to keep your lungs working properly an d to help prevent respiratory complications. It helps you take long, deep breaths. Use it at least once every hour while you are awake. Leg and feet exercises will maintain good circulation and help prevent blood clots in yo ur legs. Sometimes your doctor will order air compression stockings. Compressed air helps the circulation in your legs. Walking and moving will help stimulate normal circulation and deep breathing. After you r surgery, your nurse may ask you to sit, stand or walk. Surgery Check in Locations Admitting [facility], ninth floor [facility] Surgery Check in Time: Someone from your surgeon's office will provide you with informat ion regarding your check in time. If you have any questions about this, please contact your surgeon's office. Going Home Your surgical team will decide when you are medically ready to go home. You will require transportation home on the day of discharge. Pain medications and physi amanda activity restrictions may limit your ability to drive safely. It is also recommended th at you have someone assist you and look after you on the first night after you are released to go home. If you stayed in the hospital after surgery, please arrange for your ride to come for yo u around 9AM on the day your doctor says you can go home. Check out time is 11AM. If you have questions or concerns after you go home, call your doctor s office. If it is after office hours, call the [facility] bending press operator at [phone] and ask them to page your doc tor. documented in this encounter Progress Notes Carmen Chang - 08/14/2011 12:43 PM PST Venipuncture performed in clinic, blood sample obtained from Right antecubital site Hemoglo bin A1C POCT performed during clinic visit. Blood sample obtained from venipuncture performe d to obtain other lab tests. Christiana Gonzalez FNP - 0 08/14/2011 11:36 AM PST PREOPERATIVE CONSULT NOTE Consulting Provider: GARFIELD TERRELL Referring Physician: Dr Goel Primary Care Provider: Abrahan Samaniego MD Reason for Consult: Preoperative evaluation and risk assessment Proposed Procedure/Date: Frameless stereotactic craniotomy for tumor resection, 09/06/41 HISTORY OF PRESENT ILLNESS: Oliva Vogt is a 61 y.o. female here for preoperative evalu ation for above procedure. 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 Denies TAPIA or blurred vision. PHM significant for hypothyroid stable on replacement and adrenal insufficiency stable on 6 mg prednisone replacement daily. She has some kidney damage related to preeclampsia 1971, stabilized with short course of dialysis. Unknown kidney status currently. Hx pseudocholine sterase deficiency. Current Medication List 08/14/11 11:00 AM Name Sig CALCIUM ORAL Take by mouth once daily. VITAMIN D ORAL Take by mouth once daily. PREDNISONE 1 MG TAB Take by mouth once daily. PREDNISONE 5 MG TAB Take by mouth once daily. THYROID ORAL Take by mouth once daily. Allergies Allergen Reactions Succinylcholine Past Medical History Diagnosis Date H pylori ulcer Abdominal pain, other specified site Kidney failure Headache Panhypopituitarism Past Surgical History Procedure Date Cholecystectomy Hx shunt placement Blood clot evacuation Eclapsia Family History Problem Relation Cancer Father Hypertension Mother Arthritis Father SOCIAL Hx History Social History Marital Status: Spouse Name: N/A Number of Children: N/A Years of Education: N/A Occupational History Not on file. Social History Main Topics Smoking status: Never Smoker Smokeless tobacco: Not on file Alcohol Use: No Drug Use: Not on file Sexually Active: Not on file Other Topics Concern Not on file Social History Narrative No narrative on file Last Vitals: BP 146/76 | Pulse 67 | Temp (Src) 36.2 C (97.2 F) (Oral) | RR 16 | Ht 161. 3 cm (5' 3.5") | Wt 67.178 kg (148 lb 1.6 oz) | SpO2 100% | BMI 25.82 kg/(m^2) Body mass ind ex is 25.82 kg/(m^2). [facility] ROS Last edited 08/14/11 1136 by GARFIELD Joaquin ROS Pulmonary: No pulmonary or respiratory symptoms sleep apnea Age>50 Pt at low risk of MAG Cardiovascular: Functional capacity > 4 mets, walks for exercise. No chest pain, chest discomfort, exertional angina, PND, orthopnea no CAD GI/Hepatic: No GI distress symptoms no GERD : Hx acute renal failure, 1971 associated with eclampsia.. No bladder problems Endo: panhypopituarism (hypothyroid and adrenal funciton). No diabetes Neurological: Tinnitus. No paraesthesia or localized weakness. No seizures. MS: No active musculoskeletal prolems Heme/Onc: Hx blood transfusion 1971. No anemia, active bleeding, blood clotting issues. No history of malignancy. Skin: Comments: No open wounds or rashes. No history of resistant infections (MRSA or VRE) Physical Exam General: Patients general appearance: Healthy, Alert, No distress and Cooperative Head & Neck/Airway: Normal teeth Neck ROM: full Dentition: dentition is normal no Betancur Mallampati: I Mouth Opening: > = 3 cm C-Spine: normal Neck Anatomy: Normal Jaw Protrusion: Normal, lower incisors can protrude past upper incisors Lung Exam: No respiratory distress. Normal breathing pattern. breath sounds normal Cardiac: No murmurs, gallops or rubs. Rhythm: regular Rate: normal Abdominal: General Findings: Deferred Musculoskeletal: Findings: tone normal Neuro/Psych: alert Findings: No tremor, Alert, oriented to person, place, time, Normal affect and Normal gait and station Integument: No open rashes or lesions noted. Color: pink Texture: Skin texture - normal Implants: Comments: SUCCINYCHOLINE ADVERSE REACTION (pseudocholinesterase deficiency). 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 Denies TAPIA or blurred vision. PHM significant for hypothyroid stable on replacement and adrenal insufficiency on 6 mg prednisone replacement daily. She has some kidney damage related to preeclampsia 1971, stabilized with short course of dialysis. Unknown kidney status currently. LAB DATA REVIEWED/ORDERED CBC, BMP, INR, T&S, results pending Lab Results Component Value Date A1C 5.2 08/14/2011 MEDICAL DECISION MAKIN ACC/ AHA Perioperative Guidelines 1. Need for emergency noncardiac surgery? b. No -> Proceed to next step. 2. Active Cardiac Conditions? These conditions mandate further investigation and manageme nt. A. Acute NE within 7 days: no B. Unstable angina/Recent NE (7- 30 days): no C. Decompensated CHF: no D. Significant arrhythmia: None E. Severe valvular disease: NONE 3. Low risk surgery? b. No -> proceed with next step. 4. Good functional capacity? (>4 METS)a. Yes -> proceed with surgery. ASSESSMENT and RECOMMENDATIONS: Surgical/anesthesia risk assessment: Oliva Vogt is a 61 y.o. female with diagnosis of skull tumor, scheduled for tumor resection. According to ACC/AHA, this patient has no ac tive cardiac conditions and good functional capacity and the recommendation is to proceed wi surgery. Medication management recommendations: The patient was advised to continue all usual med ications except as noted in Patient Instructions (After Visit Summary given to pt) Perioperative antibiotic prophylaxis: Standard (Consider IV Vanco one hr before procedu re in pts with Cephalosporin/PCN allergy and/or with hx of MRSA) This patient is medically stable for surgery. Further testing/optimization is not needed. Thank you for the opportunity to contribute to this patient's care. GARFIELD TERRELL [facility] [address] [place] [phone] documented in th is encounter Plan of Treatment Not on filedocumented as of this encounter Procedures + +--------+ + + + | Procedure Name | Priori | Date/Time | Associated Diagnosis | Comments | | | ty | | | | + +--------+ + + + | PROCEDURE NOTE | Routin | 07/12/2015 | | Results for this | | | e | 3:23 AM | | procedure are in the | | | | PST | | results section. | + +--------+ + + + | AR COLLECTION VENOUS | Routin | 08/14/2011 | Other specified | | | BLOOD,VENIPUNCTURE | e | 12:43 PM | pre-operative | | | | | PST | examination | | + +--------+ + + + | HEMOGLOBIN A1C, POC | Routin | 08/14/2011 | Frontal skull | Results for this | | | e | 11:19 AM | lesion Other | procedure are in the | | | | PST | specified | results section. | | | | | pre-operative | | | | | | examination | | + +--------+ + + + | INR | Routin | 08/14/2011 | Frontal skull | Results for this | | | e | 11:01 AM | lesion Other | procedure are in the | | | | PST | specified | results section. | | | | | pre-operative | | | | | | examination | | + +--------+ + + + | BASIC METABOLIC SET | Routin | 08/14/2011 | Frontal skull | Results for this | | (NA, K, CL, TCO2, | e | 11:01 AM | lesion Other | procedure are in the | | BUN, CR, GLU, CA) | | PST | specified | results section. | | | | | pre-operative | | | | | | examination | | + +--------+ + + + | CBC ONLY | Routin | 08/14/2011 | Frontal skull | Results for this | | | e | 11:01 AM | lesion Other | procedure are in the | | | | PST | specified | results section. | | | | | pre-operative | | | | | | examination | | + +--------+ + + + | TYPE AND SCREEN | Routin | 08/14/2011 | Frontal skull | Results for this | | | e | 11:01 AM | lesion Other | procedure are in the | | | | PST | specified | results section. | | | | | pre-operative | | | | | | examination | | + +--------+ + + + documented in this encounter Results PROCEDURE NOTE (07/12/2015 3:23 AM PST) + + | Transcriptions | + + | Other, Faculty - 08/18/2011 9:04 AM PDT | + + HEMOGLOBIN A1C, POC (08/14/2011 11:19 AM PST) + +-------+ + + + | Component | Value | Ref Range | Performed | Pathologist | | | | | At | Signature | + +-------+ + + + | HEMOGLOBIN | 5.2 | 4.0 - 5.7 % | [facility], | | | A1C,POC | | | POINT OF | | | | | | CARE TESTS | | + +-------+ + + + + + | Specimen | + + | Blood | + + + + + + + | Performing | Address | City/State/Zipcode | Phone Number | | Organization | | | | + + + + + | [facility], POINT | [address] | [place] [address] | | | OF CARE TESTS | | | | + + + + + TYPE AND SCREEN (08/14/2011 11:01 AM PST) + + + + + + | Component | Value | Ref Range | Performed | Pathologist | | | | | At | Signature | + + + + + + | ABO GROUP | A | | [facility] | | | | | | DEPARTMENT | | | | | | OF | | | | | | PATHOLOGY | | + + + + + + | RH TYPE | Positive | | [facility] | | | | | | DEPARTMENT | | | | | | OF | | | | | | PATHOLOGY | | + + + + + + | Antibody | Negative | | [facility] | | | Screen | | | DEPARTMENT | | | | | | OF | | | | | | PATHOLOGY | | + + + + + + + + | Specimen | + + | Blood - Blood | + + + + + + + | Performing | Address | City/State/Zipcode | Phone Number | | Organization | | | | + + + + + | [facility] DEPARTMENT | [address] | [place] [address] | | | PATHOLOGY | [address] | | | + + + + + INR (08/14/2011 11:01 AM PST) + + + + + + | Component | Value | Ref Range | Performed | Pathologist | | | | | At | Signature | + + + + + + | INR | 1.02Comment: | 0.90 - 1.20 INR | [facility] | | | | INR Therapeutic ranges | | DEPARTMENT | | | | for full | | OF | | | | anticoagulation: | | PATHOLOGY | | | | INR for Venous | | | | | | Thromboembolism | | | | | | (2.0-3.0) | | | | | | INR INR for most | | | | | | patients with mech. | | | | | | valves (2.5-3.5) | | | | | | INR | | | | + + + + + + + + | Specimen | + + | Blood - Blood | + + + + + + + | Performing | Address | City/State/Zipcode | Phone Number | | Organization | | | | + + + + + | [facility] DEPARTMENT OF | [address] | [place] [address] | | | PATHOLOGY | [address] | | | + + + + + CBC ONLY (08/14/2011 11:01 AM PST) + +-------+ + + + | Component | Value | Ref Range | Performed | Pathologist | | | | | At | Signature | + +-------+ + + + | WHITE CELL | 7.1 | 4.4 - 11.0 K/cu | [facility] | | | COUNT | | mm | DEPARTMENT | | | | | | OF | | | | | | PATHOLOGY | | + +-------+ + + + | RED CELL | 4.93 | 4.00 - 5.20 | [facility] | | | COUNT | | M/cu mm | DEPARTMENT | | | | | | OF | | | | | | PATHOLOGY | | + +-------+ + + + | HEMOGLOBIN | 15.0 | 12.0 - 16.0 | [facility] | | | | | g/dL | DEPARTMENT | | | | | | OF | | | | | | PATHOLOGY | | + +-------+ + + + | HEMATOCRIT | 43.8 | 36.0 - 46.0 % | [facility] | | | | | | DEPARTMENT | | | | | | OF | | | | | | PATHOLOGY | | + +-------+ + + + | MCV | 88.8 | 80.0 - 96.0 fL | [facility] | | | | | | DEPARTMENT | | | | | | OF | | | | | | PATHOLOGY | | + +-------+ + + + | MCHC | 34.2 | 33.4 - 35.5 | [facility] | | | | | g/dL | DEPARTMENT | | | | | | OF | | | | | | PATHOLOGY | | + +-------+ + + + | RDW | 13.3 | 11.5 - 15.0 % | [facility] | | | | | | DEPARTMENT | | | | | | OF | | | | | | PATHOLOGY | | + +-------+ + + + | PLATELET | 258 | 150 - 400 K/cu | [facility] | | | COUNT | | mm | DEPARTMENT | | | | | | OF | | | | | | PATHOLOGY | | + +-------+ + + + + + | Specimen | + + | Blood - Blood | + + + + + + + | Performing | Address | City/State/Zipcode | Phone Number | | Organization | | | | + + + + + | [facility] DEPARTMENT OF | [address] | [place] [address] | | | PATHOLOGY | [address] | | | + + + + + BASIC METABOLIC SET (NA, K, CL, TCO2, BUN, CR, GLU, CA) (08/14/2011 11:01 AM PST) + + + + + + | Component | Value | Ref Range | Performed | Pathologist | | | | | At | Signature | + + + + + + | GLUCOSE, | 103 (H) | 60 - 99 mg/dL | [facility] | | | PLASMA | | | DEPARTMENT | | | (LAB) | | | OF | | | | | | PATHOLOGY | | + + + + + + | BUN, PLASMA | 16 | 6 - 20 mg/dL | [facility] | | | (LAB) | | | DEPARTMENT | | | | | | OF | | | | | | PATHOLOGY | | + + + + + + | CREATININE | 0.95 | 0.60 - 1.10 | [facility] | | | PLASMA | | mg/dL | DEPARTMENT | | | (LAB) | | | OF | | | | | | PATHOLOGY | | + + + + + + | SODIUM, | 139 | 134 - 143 | [facility] | | | PLASMA | | mmol/L | DEPARTMENT | | | (LAB) | | | OF | | | | | | PATHOLOGY | | + + + + + + | POTASSIUM, | 4.1 | 3.4 - 5.0 | [facility] | | | PLASMA | | mmol/L | DEPARTMENT | | | (LAB) | | | OF | | | | | | PATHOLOGY | | + + + + + + | CHLORIDE, | 106 | 97 - 108 mmol/L | [facility] | | | PLASMA | | | DEPARTMENT | | | (LAB) | | | OF | | | | | | PATHOLOGY | | + + + + + + | TOTAL CO2, | 27 | 22 - 29 mmol/L | [facility] | | | PLASMA | | | DEPARTMENT | | | (LAB) | | | OF | | | | | | PATHOLOGY | | + + + + + + | CALCIUM, | 9.6 | 8.6 - 10.2 | [facility] | | | PLASMA | | mg/dL | DEPARTMENT | | | (LAB) | | | OF | | | | | | PATHOLOGY | | + + + + + + | EGFR | > 60 | >60 mL/min | [facility] | | | - | | | DEPARTMENT | | | [place] | | | OF | | | | | | PATHOLOGY | | + + + + + + | EGFR NON | 60 (L)Comment: GFR is | >60 mL/min | [facility] | | | -LETI | estimated using the MDRD | | DEPARTMENT | | | RICAN | equation recommended by | | OF | | | | theNational Kidney | | PATHOLOGY | | | | Disease Education | | | | | | Program. Estimated GFR | | | | | | Interpretive | | | | | | Information: <60 | | | | | | mL/min/1.73 sq m | | | | | | Chronic Kidney Disease | | | | | | <15 mL/min/1.73 sq m | | | | | | Kidney Failure | | | | | | Estimated GFR greater | | | | | | than 60mL/min/1.73 is of | | | | | | limited clinical Value. | | | | | | The MDRD equation is | | | | | | not valid in the | | | | | | following situations: - | | | | | | Patients under 18 years | | | | | | of age - Severe | | | | | | malnutrition or obesity | | | | | | - Vegetarian diet - | | | | | | Rapidly changing kidney | | | | | | function | | | | + + + + + + | ANION GAP | 6 | 4 - 11 mmol/L | [facility] | | | | | | DEPARTMENT | | | | | | OF | | | | | | PATHOLOGY | | + + + + + + + + | Specimen | + + | Blood - Blood | + + + + + + + | Performing | Address | City/State/Zipcode | Phone Number | | Organization | | | | + + + + + | [facility] | [address] | [place] [address] | | | PATHOLOGY | [address] | | | + + + + + documented in this encounter Visit Diagnoses + + | Diagnosis | + + | Frontal skull lesion - Primary Disorder of bone and cartilage, unspecified | + + | Other specified pre-operative examination | + + | Panhypopituitarism (HCC) Panhypopituitarism | + + | Hx of renal failure Personal history of other disorder of urinary system | + + | Pseudocholinesterase deficiency Other specified diseases of blood and blood-forming | | organs | + + documented in this encounter
--- OUTSIDE RECORDS SUMMARY | ~2020-01-04 | XMS | Encounter Summary ---
Demographics + + + | Address | [address] | | | [place] [address] | + + + | Home Phone | | + + + | Preferred Language | Unknown | + + + | Marital Status | | + + + | Church Affiliation | 1027 | + + + | Race | Unknown | + + + | Ethnic Group | Unknown | + + + Author + + + | Author | [facility] | [...] [place], | | | | | [place] [address] | | + + + + + | Ryan Vogt | ECON | Unknown | | + + + + + | Rob Vogt | ECON | Unknown | | + + + + + Care Team Providers + +------+ + | Care Car Tester Name | Role | Phone | + +------+ + | Abrahan Samaniego MD | PCP | | + +------+ + Reason for Visit + +--------+ + | Reason | Onset | Comments | | | Date | | + +--------+ + | Medication | 12/13/ | | | Management | 2019 | | + +--------+ + Encounter Details +--------+ + + + + | Date | Type | Department | Care Team | Description | +--------+ + + + + | 12/13/ | Telephone | [facility] | Cheryl Zee MD | Medication | | 2019 | | [place] | [address] [place] | Management | | | | ENDOCRINOLOGY [address] | [address] [place] | | | | [address] [place] [address] | [id number] | | | | | [place] | | | | | | [address] | | | | | | [phone] | | | +--------+ + + + [...] Miscellaneous Notes Telephone Encounter - Oliva Son, Automobile Bumper Straightener - 12/13/2018 11:39 AM PDTCalled an d spoke with pharmacy they needed clarification on carriages I have clarified prescription s ent electronically yesterdayElectronically signed by Oliva Son, Automobile Bumper Straightener at 11:40 AM PDTTelephone Encounter - Gunjan Díaz - 12/13/2018 11:29 AM PDTForma tting of this note might be different from the original. Patient is calling about medication. Okay to leave detailed message: Yes Medication name [facility] Image [facility] Comment: Falguni calls to clarify Rx. Mychart: ACTIVATED PCP: Abrahan Samaniego MD Future Appointments: Future Appointments Date Time Provider Department Center 12/20/2018 14:00 [facility] 01 [facility] 12/20/2018 15:00 [facility] RADIOLOG 12/21/2018 15:50 Cheryl Zee MD [facility] END[facility] None 01/16/2019 7:30 [facility] 03/09/2019 13:30 Abrahan Samaniego MD [facility] documented in this enc ounter Plan of Treatment +--------+---------+ + + + | Date | Type | Specialty | Care Team | Description | +--------+---------+ + + + | 04/29/ | Office | Internal Medicine | Abrahan Samaniego MD | | | 2019 | Visit | | [place] | | | | | | [place] | | | | | | [address] | | | | | | | | +--------+---------+ + + + | 07/25/ | Office | Cardiology | Renetta, | | | 2020 | Visit | | PARKER a[address]rris [address] | | | | | | [place], | | | | | | [place] [address] | | | | | | [phone] | | | | | | | | +--------+---------+ + + + | 09/03/ | Office | Endocrinology | Cheryl Zee MD | | | 2020 | Visit | | [address] | | | | | | [address] [place] | | | | | | [phone] | | | | | | | | +--------+---------+ + + + documented as of this encounter Visit Diagnoses Not on filedocumented in this encounter"
--- OUTSIDE RECORDS SUMMARY | ~2020-01-04 | XMS | Encounter Summary ---
Demographics + + + | Address | [address] | | | [place] [address] | + + + | Home Phone [...] + + | Author | [facility] | | | and [place] | + + + | Organization | [facility] | | [...] [place], | | | | | [place] [address] | | + + + + + | Ryan Vogt | ECON | Unknown | | + + + + + | Rob Vogt | ECON | Unknown | | + + + + + Care Team Providers + +------+ + | Care Tavern Car Attendant Name | Role | Phone | + +------+ + PCP | Unavailable | + +------+ + Encounter Details +--------+ + + + + | Date | Type | Department | Care Team | Description | +--------+ + + + + | 12/28/ | Hospital | [facility] | Ifeanyi Romo, | | | 2007 | Encounter | MED CTR XRAY [address] | | | | | [place] | [place] | | | | | [place] [address] | [address] | | | | | [phone] | | | +--------+ + + + [...] | | 2019 | Visit | | [facility] [address] | | | | | | [place] | | | | | | [address] | | | | | | | | +--------+---------+ + + + | 07/25/ | Office | Cardiology | Renetta, | | | 2020 | Visit | | PARKER Harris [address] | | | | | | [place], | | | | | | [place] [address] | | | | | | [phone] | | | | | | | | +--------+---------+ + + + | 09/03/ | Office | Endocrinology | Cheryl Zee MD | | | 2020 | Visit | | [address] | | | | | | [address] [place] | | | | | | [address] | | | | | | | | +--------+---------+ + + + documented as of this encounter Visit Diagnoses Not on filedocumented in this encounter"
--- OUTSIDE RECORDS SUMMARY | ~2020-01-04 | XMS | Encounter Summary ---
Demographics + + + | Address | [address] | | | [place] [address] | + + + | Home Phone [...] [facility] | | | and [place] [...] [place], | | | | | [place] [address] | | + + + + + | Ryan Vogt | ECON | Unknown | | + + + + + | Rob Vogt | ECON | Unknown | | + + + + + Care Team Providers + +------+ + | Care Boom Master Name | Role | Phone | [...] Wu | | | | | [address] | [place] [address] | | | | | [place] [address] | | | | | | [phone] | | | +--------+ + + + [...] [place] | | | | | | [address] | | | | | | | | +--------+---------+ + + + | 07/25/ | Office | Cardiology | Renetta, | | | 2020 | Visit | | PARKER Harris [address] | | | | | | [place] | | | | | | [place] [address] | | | | | | [phone] | | | | | | | | +--------+---------+ + + + | 09/03/ | Office | Endocrinology | Cheryl Zee MD | | | 2020 | Visit | | [address] | | | | | | [address] [place] | | | | | | [phone] | | | | | | | | +--------+---------+ + + + documented as of this encounter Procedures + +--------+ + + + | Procedure Name | Priori | Date/Time | Associated Diagnosis | Comments | | | ty | | | | + +--------+ + + + | [facility] DIGITAL | Routin | 02/21/2014 | | Results for this | | SCREENING BILATERAL | e | 12:00 AM | | procedure are in the | | | | PDT | | results section. | + +--------+ + + + documented in this encounter Results LUIZ Digital Screening Bilateral (02/21/2014 12:00 AM PDT) + + | Specimen [...]
--- OUTSIDE RECORDS SUMMARY | ~2020-01-04 | XMS | Encounter Summary ---
Demographics + + + | Address | [address] | | | [place] [address] | + + + | Home Phone [...] Author | [facility] | [...] [place], | | | | | [place] [address] | | + + + + + | Ryan Vogt | ECON | Unknown | | + + + + + | Rob Vogt | ECON | Unknown | | + + + + + Care Team Providers + +------+ + | Care Outboard Motorboat Rigger Name | Role | Phone | + +------+ + PCP | Unavailable | + +------+ + Encounter Details +--------+ + + + + | Date | Type | Department | Care Team | Description | +--------+ + + + + | 12/09/ | Hospital | [facility] | Ifeanyi Romo, | | | 2006 | Encounter | MED CTR LABORATORY | [address] | | | | | [address] [place] | [place] | | | | | [place] | [address] | | | | | [address] | | | | | | [phone] | | | +--------+ + + + [...] [place] | | | | | | [address] | | | | | | | | +--------+---------+ + + + | 07/25/ | Office | Cardiology | Renetta | | | 2020 | Visit | | PARKER Harris [address] | | | | | | [place], | | | | | | [place] [address] | | | | | | [phone] | | | | | | | | +--------+---------+ + + + | 09/03/ | Office | Endocrinology | Cheryl Zee MD | | | 2020 | Visit | | [address] | | | | | | [address] [place] | | | | | | [address] | | | | | | | | +--------+---------+ + + + documented as of this encounter Visit Diagnoses Not on filedocumented in this encounter"
--- OUTSIDE RECORDS SUMMARY | ~2020-01-04 | XMS | Encounter Summary ---
Demographics + + + | Address | [address] | | | [place] [address] | + + + | Home Phone [...] | Author | [facility] | | | and [place] [...] [place], | | | | | [place] [address] | | + + + + + | Ryan Vogt | ECON | Unknown | | + + + + + | Rob Vogt | ECON | Unknown | | + + + + + Care Team Providers + +------+ + | Care Manager Management Name | Role | Phone | + [...] | | | | | | | CO | | | | | | | COLONOSCOPY, | | | | | | | DIAGNOSTIC | | | | | | | COLONOSCOPY | | | +--------+--------+ + + + + Encounter Details +--------+---------+ + + + | Date | Type | Department | Care Team | Description | +--------+---------+ + + + | 03/12/ | Surgery | [facility] | Shaji Thornton MD | COLONOSCOPY | | 2014 | | MED CTR MP INTRA OP | [address], [place] | | | | | [address] | [address] [place], [place] | | | | | [place], [place] | [address] | | | | | [address] | | | | | | [phone] | | | +--------+---------+ + + + [...] is aleading cause of cancer deaths in [facility]. But it doesn t have to be. [...] health problems you have had in the nm st. Digital Rectal Exam (IVONNE): During a [...] test: Bleeding Fever over 101F Abdominal pain 3009-3690 Christine Han, [address] [place] [address], [place] [address]. All rights reserve d. This information is [...] documented as of this encounter H&P Notes Shaji Thornton MD - 03/09/2014 10:28 AM PDT ENDOSCOPY [...] been reviewed. 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 [facility] medicine note dated 2013 is reviewed as [...] Electronically Signed by: Shaji Thornton MD 03/12/2014 [facility] Portions of this chart may have been created with [employer] voice recognition software. Occasi onal wrong-word or [...] Will proceed with colonoscopy for colon cancer scree ning documented in this encounter Procedure [facility] - 03/12/2014 12:00 AM PDTAssociated Order(s): COLONOSCOPYElectronically si gned by Toro Morris at 03/12/2014 8:37 AM PDTdocumented in this encounter Miscellaneous Notes Plan of Care - [facility] - 03/14/2014 12:00 AM PDT lan of Care - [facility] - 03/14/2014 12:00 AM PDTElect ronically signed by Toro Morris at 03/14/2014 5:00 PM PDTPlan of Care - [facility] - 03/14/2014 12:00 AM PDT isc ellaneous - [facility] - 03/14/2014 12:00 AM PDT documented in [...] [place] | | | | | | [address] | | | | | | | | +--------+---------+ + + + | 07/25/ | Office | Cardiology | Renetta, | | | 2020 | Visit | | PARKER Harris [address] | | | | | | [address] [place], | | | | | | [place] [address] | | | | | | [phone] | | | | | | | | +--------+---------+ + + + | 09/03/ | Office | Endocrinology | Cheryl Zee MD | | | 2020 | Visit | | [address] | | | | | | [address] [place] | | | | | | [phone] | | | | | | | [...] 03/12/2014 | PROVATION | | 7:45 AMMRN: [id number] #: [id number] of : | | | 1950Admit Type: [...] | the physician, the nurse and the machine technician in the endoscopy | | | [...] On: 03/12/2014 7:45 | | | AM [facility], [address] [facility] | | | [place] [address] | | | - The examination was [...] 03/12/2014 7:45 AM | | | [facility], [address] [facility], [place], [place] | | | [address] | | + + -+ + + [...] | Special screening for malignant neoplasms, colon | + + documented in this encounter [...]
--- OUTSIDE RECORDS SUMMARY | ~2020-01-04 | XMS | Encounter Summary ---
Demographics + + + | Address | [address] | | | [place] [address] | + + + | Home Phone [...] [facility] | | [...] [place], | | | | | [place] [address] | | + + + + + | Ryan Vogt | ECON | Unknown | | + + + + + | Rob Vogt | ECON | Unknown | | + + + + + Care Team Providers + +------+ + | Care Base Manager Name | Role | Phone | + +------+ + | Abrahan Samaniego MD | PCP | | + +------+ + Reason for Visit + + + | Reason | Comments | + + + | Initial Assessment | | + + + | Therapy [...] | Physical | Diagnoses | Aden | [facility] | | | Services | Therapy / | Cervicalgia | Abrahan Cortez MD | Pt Op [address] | | | Required | Rehabilitatio | [address] | | | | n | (ICD-9-CM) - | [address] | [place], | | | | | Cervicalgia | [place], | [place] [address] | | | | | Procedures | [place] [address] | Phone: | | | | | pt eval | Phone: | [phone] | | | | | | [phone] | Fax: | | | | | | Fax: | [phone] | | | | | | [phone] | | +--------+ + + + + + Encounter Details +--------+---------+ + + + | Date | Type | Department | Care Team | Description | +--------+---------+ + + + | 07/16/ | Office | [facility] | Abrahan Samaniego MD | Impaired mobility | | 2015 | Visit | MED CTR THERAPY PT | [address] [facility] | (Primary Dx); | | | | OP [address] | [place], [place] | Cervicalgia; Other | | | | [place], [place] | [address] | congenital anomaly | | | | [address] | | of spine | | | | [phone] | Matthew Bedoya | | | | | | G, PT [address] | | | | | [address] [place], [place] | | | | | | [address] [...] encounter Progress Notes Matthew Bedoya, PT - 07/16/2014 2:43 PM PST Physical Therapy Plan of Care Date: 07/16/2014 Patient Name: Oliva Vogt Date of : 1950 Encounter Diagnoses Code Name Primary? 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 Objective exam r eveals impairments with ROM of the neck, poor posture. Neurological examination is normal. Signs and symptoms are consistent with mechanical neck pain, poor posture. These impairments are causing functional limitations with patient s inability to turn head while driving, p ain with reading, disturbed sleep. Complexities contributing to frequency and duration of th erapy: none PT Assessment Goals Neck Disability Index Goal: 12 Neck Disability Index Goal Status: 22 OP PT Goals OP PT Goals: Goal 1, Goal 2, Goal 3, Goal 4, Goal 5 Goal 1: Decrease pain from 5/10 to 2/10 at worst to improve ability to complete turning hea d, driving. (6 weeks) Goal 1 Status: pain high of 5/10, pain with turning head Goal 2: Independent with home exercise program for group home spine health and prevention of recurrence of symptoms or chronicity. (6 weeks) Goal 2 Status: not exercising Goal 3: Decrease sleep disturbance to sleep through the night without waking. (6 weeks) Goal 3 Status: disturbed sleep Goal 4: Improve cervical ROM to no pain with reading. (6 weeks) Goal 4 Status: pain with reading Goal 5: Reduce NDI score by 10% points or greater indicating improved function and ability to complete ADLs. (6 weeks) Goal 5 Status: at 22 Treatment Plan/Interventions: 53861 PT Re-Evaluation, 07951 Therapeutic Exercise, 49272 Therapeutic Activity, 43100 Neuro muscular Re-education, 20168 Self Care/Home Management, 68401 Manual Therapy, 73681 Electric al Stimulation - Unattended, 26302 Ultrasound, 72624 Mechanical Traction, Cold Pack, Hot Pac k kinesiotape Requested # of Visits: 12 2x/wk for 12 weeks Certification From: 07/16/14 Certification To: 10/14/14 Matthew Bedoya PT Patient Name: Oliva Vogt/: 1950/ hMatthew de P T - 07/16/2014 1:58 PM PST [facility] CTR THERAPY PT OP [address] [place] [address] Physical Therapy Initial Assessment Date: 07/16/2014 Patient Information Patient Name: Oliva Vogt Date of : 1950 Age: 64 y.o. History Encounter Diagnoses Code Name Primary? 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 Date of Onset: 05/07/14 Referring Provider: Abrahan Samaniego MD Past Medical History Diagnosis Date Guero syndrome [...] Laterality: N/A; Surgeon: Shaji Thornton MD; Location: [facility] Allergies Allergen Reactions Succinylcholine Chloride Other (See Comments) Hard to wake up Rehab Precautions Office Visit from 07/16/2014 in [facility] CTR THERAPY PT OP Rehab Precautions Precautions None Abuse Assessment Do you feel safe in your current relationship or home?: Yes Is anyone in your life misusing your money or property?: No Have you been hit, slapped physically hurt or threatened by your partner?: No Possible clinical concerns noted by clinician?: No Action taken by clinician: No concerns Pain Assessment Pain Scale Used: NUMERIC Pain Rating Pre Assessment: 4 Location: neck; high of 5/10 CERVICAL SPINE EVALUATION: SUBJECTIVE: History of Presenting Problem: Oliva Vogt is a 64 y.o. female who pre sents to therapy with c/o neck pain that started ~ 1 1/2 months ago of unknown etiology. Th inks that it may have started when she was with her a lot while he was in the hospit al. States that maybe it was with looking at her phone a lot. Turns head easier to the left. Pain mostly at the right side. Also has pain at the angle furnaceman ior neck. Functional Limitations: turning her head with driving, pain with reading, disturbed sleep ( mild) Previous Level of Function: no complaints Prior and/or Concurrent treatment: going to massage therapy, 2 sessions so far which has gi maribel temporary relief. 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 but does get up/down a lot Patient s Goals: to be back where she was 1 1/2 months ago OBJECTIVE: Resting Vitals: BP: NT HR: NT O2: NT Observation/Posture: Forward head Functional Movements: Guarded neck movements Cervical ROM Initial Assessment Progress Note / Discharge Flexion: 32 pain at right Extension: 67 min pain Side Bend Left: 15 pain at right Side Bend Right: 24 pain at right Rotation Left: 58 mild pain at left Rotation Right: 39 pain at right Initial Assessment Initial Assessment Progress Note / Discharge Progress Note / Discharge Shoulder ROM: Left= good Right= good Left= Right= Strength Testing: Initial Assessment Initial Assessment Progress Note / Discharge Progress Note / Discharge Left Right Left Right Deltoid (C5): 5/5 5/5 Biceps (C6): 5 5 Wrist Ext (C6): 5 5 Supination (C6): 5 5 Triceps (C7): 5 5 EPL/EPB (C8): 5 5 Finger ABD (T1): 5 5 Thermometer Tester Strength: NT NT Deep Neck Flexors: (normal = 40 secs) NT Postural Muscles: Segmental Joint Mobility: Restricted in cervical segmental mobility Palpation: Very tight at cervical paraspinals, interscap (perla right side) Neurovascular: Initial Assessment Initial Assessment Progress Note / Discharge Progress Not e / Discharge Left Right Left Right Sensation: good good Myotomes: good good Reflexes: NT NT Capillary Refill: NT NT Ramirez's Reflex: NT NT Special Tests: Initial Assessment Initial Assessment Progress Note / Discharge Progress Not e / Discharge Left Right Left Right Spurlings: neg neg ULTT: neg neg Sharp-Brenda: NT Cervical Distraction: NT Outcome Measure: Initial Assessment Progress Note / Discharge NDI: 22/100% (A score of 0% = No Functional Disability of Cervical Spine) Outcome Measure: Neck Disability Index (NDI) Pain Intensity: 1 - The pain is very mild at the moment Personal Care (Washing, Dressing, etc.): 1 - I can look after myself normally but it causes extra pain Liftin - I can lift heavy weights without extra pain Readin - I can't read as much as I want becasue of moderate pain in my neck Headaches: 0 - I have no headaches at all Concentration: 0 - I can concentrate fully when I want to with no difficulty Work: 2 - I can do most of my usual work, but no more Driving: I can drive my car as long as I want with moderate pain in my neck Sleepin - My sleep is slightly disturbed (less than 1 hr sleepless) Recreation: 1 - I am able to engage in all my recreation activities, with some pain in my n skyler Neck Disability Index Score: 11 Neck Disiability Index Percentage Score (Calculated): 22 Neck Disability Index Goal: 12 Neck Disability Index Goal Status: 22 ASSESSMENT:Clinical Impression: Patient presents to physical therapy with neck pain. Object tameka exam reveals impairments with ROM of the neck, poor posture. Neurological examination i s normal. Signs and symptoms are consistent with mechanical neck pain, poor posture. These i mpairments are causing functional limitations with patient s inability to turn head while driving, pain with reading, disturbed sleep. Complexities contributing to frequency and dura tion of therapy: none Rehabilitation potential: Patient demonstrates good potential to achieve established goals to address the above documented impairments and achieve the following functional goals by pa rticipating in skilled physical therapy services. THERAPY GOALS: PT Assessment Goals Neck Disability Index Goal: 12 Neck Disability Index Goal Status: 22 OP PT Goals OP PT Goals: Goal 1, Goal 2, Goal 3, Goal 4, Goal 5 Goal 1: Decrease pain from 5/10 to 2/10 at worst to improve ability to complete turning hea d, driving. (6 weeks) Goal 1 Status: pain high of 5/10, pain with turning head Goal 2: Independent with home exercise program for group home spine health and prevention of recurrence of symptoms or chronicity. (6 weeks) Goal 2 Status: not exercising Goal 3: Decrease sleep disturbance to sleep through the night without waking. (6 weeks) Goal 3 Status: disturbed sleep Goal 4: Improve cervical ROM to no pain with reading. (6 weeks) Goal 4 Status: pain with reading Goal 5: Reduce NDI score by 10% points or greater indicating improved function and ability to complete ADLs. (6 weeks) Goal 5 Status: at 22 PLAN: Requested # of Visits: 12 2x/wk for 12 weeks Certification From: 07/16/14 Certification To: 10/14/14 Start of Care Date: 07/16/14 Treatment Plan/Interventions 23570 PT Re-Evaluation, 04068 Therapeutic Exercise, 50274 Therapeutic Activity, 95740 Neuro muscular Re-education, 32432 Self Care/Home Management, 89386 Manual Therapy, 56043 Electric al Stimulation - Unattended, 07245 Ultrasound, 88646 Mechanical Traction, Cold Pack, Hot Pac k kinesiotape Patient and/or family has indicated understanding of treatment needs and actively participa henrik in the creation of this plan for care. Today's Treatment Start Time: 1345 Stop time: 1340 Duration: 1435 minutes Timed Treatment Codes: 15 minutes # of PT Visits: 1 Objective: Education of rehab timeline, focus and expectations. Education of pain modulation with use of MHP, neck care. Exercise/Activity 07/16/14 Cervical ROM HEP Cervical retraction " Upper traps stretch " scap retraction " Corner stretch " Next Visit: education for posture, body mechanics, manual therapy for decreasing tightness. Electronically signed by: Matthew Bedoya, PT, 07/16/2014 14:39 Patient Name: Oliva Vogt/: 1950/ documented in [...] | | | | | | [place] [address] | | | | | | [phone] | | | | | | | [...]
--- OUTSIDE RECORDS SUMMARY | ~2020-01-04 | XMS | Encounter Summary ---
Demographics + + + | Address | [address] | | | [place] [address] | + + + | Home Phone [...] | Author | [facility] | | [...] [place], | | | | | [place] [address] | | + + + + + | Ryan Vogt | ECON | Unknown | | + + + + + | Rob Vogt | ECON | Unknown | | + + + + + Care Team Providers + +------+ + | Care Heat Treat Inspector Name | Role | Phone | + +------+ + | Abrahan Samaniego MD | PCP | | + +------+ + Encounter Details +--------+ + + + + | Date | Type | Department | Care Team | Description | +--------+ + + + + | 04/13/ | Abstract | [facility] | Abrahan Samaniego MD | | | 2013 | | MEDICINE [address] | [address] [facility] | | | | | [place], | [place] | | | | | [place] [address] | [id number] | | | | | [phone] | | | +--------+ + + + [...] | | | | | | [place] [address] | | | | | | [phone] | | | | | | | [...] | LUIZ EXTERNAL IMAGE | Routin | 02/21/2014 | | Results for this | | | e | | | procedure are in the | | | | | | results section. | + +--------+ + + + documented in this encounter Results LUIZ External Image (02/21/2014) + + + + + + | Component | Value | Ref Range | Performed | Pathologist | | | | | At | Signature | + + + + + + | EXT | 1-Negative | | | | | MAMMOGRAPHY | | | | | + + + + + + documented in this encounter Visit Diagnoses Not on filedocumented in this encounter"
--- OUTSIDE RECORDS SUMMARY | ~2020-01-04 | XMS | Encounter Summary ---
Demographics + + + | Address | [address] | | | [place] [address] | + + + | Home Phone [...] Author | [facility] | | | and [...] [place], | | | | | [place] [address] | | + + + + + | Ryan Vogt | ECON | Unknown | | + + + + + | Rob Vogt | ECON | Unknown | | + + + + + Care Team Providers + +------+ + | Care Auto Striper Name | Role | Phone | + +------+ + | Abrahan Samaniego MD | PCP | | + +------+ + Encounter Details +--------+ + + + + | Date | Type | Department | Care Team | Description | +--------+ + + + + | 09/23/ | Hospital | [facility] | Conversion | | | 2011 | Encounter | [facility] | Transaction, | | | | | [address] | Provider Unknown | | | | | [place], [place] | [phone] | | | | | [address] | | | | | | [phone] | Gonzalo Brooks MD | | | | | | [address] [facility] | | | | | | [id number] | | | | | | [place], [place] | | | | | | [address] | | | | | | [phone] | | | | | | | [...] [place] | | | | | | [id number] | | | | | | | | +--------+---------+ + + + | 07/25/ | Office | Cardiology | Renetta, | | | 2020 | Visit | | P[place] [address] | | | | | | [place] | | | | | | [place] [address] | | | | | | [phone] | | | | | | | | +--------+---------+ + + + | 09/03/ | Office | Endocrinology | Cheryl Zee MD | | | 2020 | Visit | | [address] [place] | | | | | | [address] [place] | | | | | | [address] | | | | | | | | +--------+---------+ + + + documented as of this encounter Visit Diagnoses Not on filedocumented in this encounter"
--- OUTSIDE RECORDS SUMMARY | ~2020-01-04 | XMS | Encounter Summary ---
Demographics + + + | Address | [address] | | | [place] [address] | + + + | Home Phone [...] + | Author | [facility] | | | and [...] [place], | | | | | [place] [address] | | + + + + + | Ryan Vogt | ECON | Unknown | | + + + + + | Rob Votg | ECON | Unknown | | + + + + + Care Team Providers + +------+ + | Care Furnace Worker Name | Role | Phone | + +------+ + | Abrahan Samaniego MD | PCP | | + +------+ + Reason for Visit + + + | Reason | Comments | + + + | Follow-up | | + + + | Hyperlipidemia | | + + + | Hypertension | | + + + Encounter Details +--------+---------+ + + + | Date | Type | Department | Care Team | Description | +--------+---------+ + + + | 01/18/ | Office | [facility] | Renetta, | Secondary | | 2019 | Visit | CARDIOLOGY [address] | [place] [address] | hypothyroidism | | | | [place], | [place], | (Primary Dx); | | | | [place] [address] | [place] [address] | Hyperlipidemia, | | | | [phone] | [phone] | unspecified | | | | | | hyperlipidemia type; | | | | | | Angina at rest | | | | | | ([facility]) | +--------+---------+ + + + Social History [...] + + + | Blood Pressure | 108/60 | 01/18/2019 8:48 AM | | | | | PDT | | + + + + + | Pulse | 76 | 01/18/2019 8:48 AM | | | | | PDT | | + + + + + | Temperature | - | - | | + + + + + | Respiratory Rate | 16 | 01/18/2019 8:48 AM | | | | | PDT | | + + + + + | Oxygen Saturation | - | - | | + + + + + | Inhaled Oxygen | - | - | | | Concentration | | | | + + + + + | Weight | 71.5 kg (157 lb 10.1 | 01/18/2019 8:48 AM | | | | oz) | PDT | | + + + + + | Height | 162.6 cm (5' 4") | 01/18/2019 8:48 AM | | | | | PDT | | + + + + + | Body Mass Index | 27.06 | 01/18/2019 8:48 AM | | | | | PDT | | + + + + + documented in this encounter Patient Instructions Patient Instructions Britta Hanson Crop Nutrition Scientist - 01/18/2019 9:00 AM PDT1. Continu e taking aspirin 81 mg daily 2. Decrease Amlodipine to (1/2 tablet) 2.5 mg once nightly as directed watch your blood pre ssure and chest pain 3. Increase Atorvastatin to 40 mg once daily 4. Increase your exercise by taking a brisk walk for 30 minutes 5 days a week 5. She will follow up in 6 months, or sooner with concerns. documented in this encounter Progress Notes Kimberly Jackson ARNP - 01/18/2019 9:00 AM PDTFormatting of this note might be differen t from the original. PATIENT NAME: Oliva Vogt : 1950: AGE: 68 y.o. PRIMARY CARE: Abrahan Samaniego MD OUTPATIENT FOLLOW UP VISIT Date of Service: 01/18/2019 HISTORY OF PRESENT ILLNESS: Oliva Vogt is a 68 y.o. 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 Sh selvin is being seen today for follow up with test results. She was last seen 12/05/[address] Alejandro at which time Dr. Alejandro spend time at length talking about natural course, treatment and prognosis of classic angina, suggesting myocardial ische dago. Patient is candidate for left heart catheterization via right radial. The risks and negra efits of the procedure including alternative treatment were discussed with the patient in [facility]. The patient decides to proceed with the procedure. She was scheduled for a echocardiog rekha is warranted to assess cardiac structure. She will increase atorvastatin to 20 mg daily. Switch metoprolol to amlodipine 5 mg to reduce high blood pressure. She does not do well with metoprolol. Check blood pressure x 2 weeks. Prescribe nitroglycerine 0.4 mg as needed f or chest pain. Check LFT and Lipid panel. She will follow up in 3-4 weeks. Since that time, she had a echocardiogram done on 12/20/2018. On 12/26/2018 she had a left he art catheterization done. She sent in her blood pressure log on 12/27/2018 that showed well c ontrolled and no medication changes. She has had a fair energy level. She is unable to do much exercise due to the chest pressur e and shortness of breath. She tries to stay active. She states that she wants to start in creasing her walks, she works at the [employer] and the walk in is long. She will increase her woo y exercise. She has not had any chest pain or discomfort at rest today, it has improved sinc e last office visit. She continues to have a littel shortness of breath with walking She h as not had any lightheadedness or dizziness. She has not noticed palpitations. She has not iced mild swelling at ankles by the end of the day that is resolved in the morning, which puente s been stable for her. She is able to sleep laying down at night without any symptoms of sh ortness of breath. She does no have sleep apnea MEDICAL, SURGICAL, AND PERSONAL HISTORY Past Medical, [...] Secondary hyperparathyroidism Localized edema Growth hormone deficiency CURRENT MEDICATIONS Current Outpatient Medications Medication Sig Dispense Refill amLODIPine (NORVASC) 5 mg tablet take 1 tablet by mouth once daily 90 tablet 3 aspirin 81 MG tablet Take 81 mg by mouth Daily. atorvaSTATin (LIPITOR) 20 mg tablet take 1 tablet by mouth once daily 90 tablet 3 cholecalciferol (CHOLECALCIFEROL) 1000 units [...] needed for Chest pain. 100 tablet 3 potassium chloride (KLOR-CON) 10 mEq [...] Inject 0.2 mg under the skin Daily. (Patient not valentin ing: Reported on 01/18/2019) 5 each 2 No current facility-administered medications for this visit. ALLERGIES Allergies Allergen Reactions Succinylcholine Chloride Other (See Comments) Hard to wake up ROS Review of Systems Constitutional: Negative. Negative for malaise/fatigue. Respiratory: Negative. Negative for shortness of breath. Cardiovascular: Negative. Negative for chest pain, palpitations and leg swelling. Neurological: Negative. Negative for dizziness and weakness. Lightheadedness - No Endo/Heme/Allergies: Negative. Does not bruise/bleed easily. OBJECTIVE: PHYSICAL EXAM BP 108/60 | Pulse 76 | Resp 16 | Ht 1.626 m (5' 4") | Wt 71.5 kg (157 lb 10.1 oz) | BM I 27.06 kg/m Physical Exam Constitutional: She is oriented to person, place, and time. She appears well-developed and well-nourished. No distress. Pulmonary/Chest: Effort normal. No respiratory distress. Musculoskeletal: Normal range of motion. She exhibits edema (mild edema in ankle area). Neurological: She is alert and oriented to [...] was found Confirmed by LAURI DERAS MD ([id number]) on 12/05/2018 4:26:27 PM LAB RESULTS reviewed during visit today primarily from [facility]: LIPID Lab Results Component Value Date CHOL 141 01/17/2019 TRIG 113 01/17/2019 HDL 48 01/17/2019 LDL 70 01/17/2019 CHOLHDL 2.9 01/17/2019 LDLEX 166 (A) 05/27/2015 LDLEX 166 (A) 05/27/2015 HDLEX 53 05/27/2015 HDLEX 53 05/27/2015 TRIGEX 99 05/27/2015 TRIGEX 99 05/27/2015 CHOLEX 239 (A) 05/27/2015 CHOLEX 239 (A) 05/27/2015 CHEMISTRY Lab Results Component Value Date GLU 85 01/10/2019 GLUEX 93 05/27/2015 NA 143 01/10/2019 NAEX 141 05/27/2015 K 3.7 01/10/2019 KEX 4.0 05/27/2015 CL 109 (H) 01/10/2019 CLEX 109 05/27/2015 CO2 27 01/10/2019 CO2EX 27 05/27/2015 CALCIUM 9.5 01/10/2019 ALKPHOS 76 01/17/2019 AST 23 01/17/2019 ASTEX 17 05/27/2015 ALT 33 01/17/2019 ALTEX 22 05/27/2015 BILITOT 0.7 01/17/2019 CREA 1.16 (H) 01/10/2019 BUN 17 01/10/2019 EGFR 50 (L) 08/05/2011 EGFREX 68.0 05/27/2015 CREEX 0.84 05/27/2015 HEMATOLOGY Lab Results Component Value Date WBC 8.1 11/10/2018 HGB 14.3 11/10/2018 HCT 43.1 11/10/2018 PLT 296 11/10/2018 Lab Results Component Value Date TSH 0.01 (L) 01/10/2019 BNP 38 11/24/2018 I reviewed records from [facility] for office visit on 12/05/2018 mika Alejandro which is summarized in the HPI. RESULTS- I reviewed reports from [facility]: Dexa Bone Density Wo Vert Fx Assmt Result Date: 12/20/2018 DEXA BONE DENSITY STUDY WO VERT FX ASSESSMENT 12/20/2018 2:58 PM HISTORY: Osteoporosis. COMP ARISON: 08/12/2017. PROTOCOL: Bone mineral density was calculated with dual absorption x-ray t echnique. FINDINGS: Bone mineral density for the left femoral neck is 0.554 g/cm2, correspon ding to a T score of -2.7 and a Z score of -0.9. Compared to the last study, the bone minera l density for the entire left hip has decreased by 0.5%. Bone mineral density for the lumbar spine measured from L1 to L4 is 0.813 g/cm2, corresponding to a T score of -2.1 and a Z sco re of -0.1. Compared to the last study, the bone mineral density has increased by 2.6%. IMPR ESSION - LEFT FEMORAL NECK: Fracture risk: High; WHO classification: Osteoporosis. L1-L4 REG ION OF THE LUMBAR SPINE: Fracture risk: Increased; WHO classification: Osteopenia. World Hea lth Organization Classification Normal: T score at or above -1 SD Osteopenia: T score betw een -1 and -2.5 SD Osteoporosis: T score at or below -2.5 SD Dictated and Signed by: Luke Lanza MD shows left ventricle is normal in size and function, ejection fra ction is estimated at 62%, there is grade 1 LV diastolic dysfunction, mildly thickened kylah l valve with trace insufficiency, structurally normal tricuspid valve with mild insufficienc y and peak velocity consistent with normal pulmonary pressures, by Alex Villaseñor MD. LHC on 12/26/18 shows mild coronary artery disease as detailed above, there is a left domina te circulation, normal LV systolic function with an EF of 65%, systemic blood pressure is no rmal, there was successful hemostasis with a TR hemostatic band, by Lauri Deras MD. Above data and testing is reviewed this visit; testing below is historical data unless othe rwise specified. ASSESSMENT: 1. Classic angina, suggesting myocardial ischemia A. Patient has been having chest pain/chest pressure and shortness of breath on exertion, relieved by rest for the last six months but was not a concern to her, until her passing in August 2018. She was then seen at [facility] emergency department on 9, for chest pain and shortness of breath on exertion. She was started on metoprolol and not ice the chest pain was resolved a but made her feel like "she is in slow motion". B. Echocardiogram on 12/20/18 shows left ventricle is normal in size and functio n, ejection fraction is estimated at 62%, there is grade 1 LV diastolic dysfunction, mildly thickened mitral valve with trace insufficiency, structurally normal tricuspid valve with mi ld insufficiency and peak velocity consistent with normal pulmonary pressures, by Alex dee MD. C. C on 12/26/18 shows mild coronary artery disease as detailed above, there is a left do minate circulation, normal LV systolic function with an EF of 65%, systemic blood pressure i s normal, there was successful hemostasis with a TR hemostatic band, by Lauri Deras MD . D. Today, 01/18/2019, she states that her chest pressure has improved with the amlodipine a nd atorvastatin, She continues to have shortness of breath walking but has not been worse. S he is in class I of the [place] [employer] functional class. Explained how increasin g her exercise for 30 minutes for 5 days a week. She will decrease her Amlodipine to 2.5 mg (1/2 tablet) once nightly because of ankle swelling daily, if she continues to have chest pa in we will switch her Amlodipine to Isosorbide Mononitrate for the chest pain. 2. Essential hypertension A. Today, 01/18/2019, her blood pressure is well controlled. She will continue to watch her blood pressure and send in a log 3. Mixed hyperlipidemia A. Today, 01/18/2019, she remains on atorvastatin. She is doing well with the in crease of her atorvastatin. She will benefit from increasing atorvastatin to 40 mg once woo y and will increase her exercise. 4. Stage III chronic kidney disease, secondary to eclampsia in 1971. A. Today, 01/18/2019, her eGFR is >60 on 12/26/2018 5. Hypothyroidism Not otherwise addressed today 01/18/2019. A. Patient is on levothyroxine 100 mcg. 6. 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 A. Severe toxemia , hemorrhage and DIC with vashti-vaginal a nd retroperitoneal hematoma and hypotensive episodes with secondary anemia, and acute tubula r necrosis with secondary azotemia on April 01, 1974 at [facility]. B. She is on prednisone 6 mg and somatropin 5.8 mg. PLAN: 1. Continue taking aspirin 81 mg once daily 2. Decrease Amlodipine to (1/2 tablet) 2.5 mg once daily by mouth, she will watch her blood pressure and chest pain. If her chest pain continues we will switch amlodipine to Isosorbid e Mononitrate for the chest pain 3. Increase atorvastatin to 40 mg once daily by mouth 4. She will increase her exercise by taking a brisk walk for 30 minuets 5 days a week 5. She will follow up in 6 months for office visit, or sooner with concerns. Britta Laguerre, Crop Nutrition Scientist am acting as a scribe on behalf of, and in the presenc e of PARKER Huffman. - Britta Hanson Crop Nutrition Scientist 01/18/2019 9:39 Kimberly Laguerre ARNP, personally performed the services described in this documentati on, as scribed in my presence and it is both accurate and complete. -PARKER Huffman 01/18/2019 Portions of this chart may have been created with [employer] voice recognition software. Occasi onal wrong-word or [...] | 2019 | Visit | | [address] [place] [address] | | | | | | [place] | | | | | | [address] | | | | | | | | +--------+---------+ + + + | 07/25/ | Office | Cardiology | Renetta, | | | 2020 | Visit | | PARKER Harris [address] | | | | | | [place] | | | | | | [place] [address] | | | | | | [phone] | | | | | | | | +--------+---------+ + + + | 09/03/ | Office | Endocrinology | Cheryl Zee MD | | | 2020 | Visit | | [address] [place] | | | | | | [address] [place] | | | | | | [address] | | | | | | | | +--------+---------+ + + + documented as of this encounter Visit Diagnoses + + | Diagnosis | + + | Secondary hypothyroidism - Primary Other specified acquired hypothyroidism | + + | Hyperlipidemia, unspecified hyperlipidemia type | + + | Angina at rest (HCC) Other and unspecified angina pectoris | + + documented in this encounter
--- OUTSIDE RECORDS SUMMARY | ~2020-01-04 | XMS | Encounter Summary ---
Demographics + + + | Address | [address] | | | [place] [address] | + + + | Home Phone [...] | Author | [facility] [...] [place], | | | | | [place] [address] | | + + + + + | Ryan Vogt | ECON | Unknown | | + + + + + | Rob Vogt | ECON | Unknown | | + + + + + Care Team Providers + +------+ + | Care Photo Mask Pattern Generator Name | Role | Phone | + +------+ + | Abrahan Samaniego MD | PCP | | + +------+ + Reason for Visit + + + | Reason | Comments | + + + | Follow-up | 3 mth | + + + Encounter Details +--------+---------+ + + + | Date | Type | Department | Care Team | Description | +--------+---------+ + + + | 05/16/ | Office | [facility] | Abrahan Samaniego MD | Adrenal | | 2011 | Visit | MEDICINE [address] [place] [address] | [address] [place] [address] | insufficiency ([facility]); | | | | [place], | [place] | Guero syndrome | | | | [place] [address] | [address] | ([facility]); RENAL | | | | [phone] | | INSUFFICIENCY; | | | | | | Hypothyroidism; | | | | | | Hyperlipidemia | +--------+---------+ + + + Social History [...] + + + | Blood Pressure | 138/74 | 05/16/2012 11:10 AM | | | | | PST | | + + + + + | Pulse | 70 | 05/16/2012 11:10 AM | | | | | PST | | + + + + + | Temperature | - | - | | + + + + + | Respiratory Rate | 12 | 05/16/2012 11:10 AM | | | | | PST | | + + + + + | Oxygen Saturation | - | - | | + + + + + | Inhaled Oxygen | - | - | | | Concentration | | | | + + + + + | Weight | 68.5 kg (151 lb) | 05/16/2012 11:10 AM | | | | | PST | | + + + + + | Height | 160 cm (5' 3") | 05/16/2012 11:10 AM | | | | | PST | | + + + + + | Body Mass Index | 26.75 | 05/16/2012 11:10 AM | | | | | PST | | + + + + + documented in this encounter Patient Instructions Patient Instructions Abrahan Samaniego MD - 05/16/2012 11:36 AM PSTIF YOUR STOMACH DISCOMFOR T COMES BACK,TRY PRILOSEC OTC 1 PILL DAILY FOR 2 WEEKS. IF THAT ISN'T HELPFUL PLEASE CALL ME AT [phone] documented in this encounter Progress Notes Abrahan Samaniego MD - 05/16/2012 11:21 AM PSTFormatting of this note might be different fro m the original. Subjective: Patient ID: Oliva Vogt is a 62 y.o. female. HPI Oliva is here today for follow-up She is doing well with respect to her Guero's syndrome and chronic adrenal insufficiency. She has had all of her immunizations. She does not see Dr Zee routinely. She has not had any recent febrile illnesses and she is aware of the ad renal insufficiency which she says "Ididn't realize it was was such a big deal. Now I get it ". Her reflux is much better with the Dexilant. She says that her symptoms of abdominal disco mfort and reflux symptoms went completely away after 2 weeks. Her symptoms included some sto mach discomfort which has gradually come back off of the Dexilant. She hasn't tried the omep razole. Patient's medications, allergies, past medical, surgical, social and family histories were reviewed and updated as appropriate. Social: Oliva is stressed out about her . Is on dialysis. He has diabetes and real ly still after 30 years hasn't figured out how to take care of it on his own. It's really g etting overwhelming for her. Review of Systems No problems with Depression, anhedonia, crying spells, insomnia, hypersomnolence, dysphagia , odynophagia, abdominal pain/discomfort/nausea/vomiting/melena/bright red blood per rectum. No cough, wheezing, SOB, GELLER, orthopnea, PND, peripheral edema. Objective: Physical Exam: General: Somewhat cushingoid appearing female in no acute distress. Her af fect is normal HEENT:EOMI, OP normal CHEST: Clear to auscultation. No wheezes, rales, rhonchi. Normal effort and movement CAR: Rhythm: Regular Murmur: None [place]: None JVP: None Pulses: Normal ABD: non-distended, non-tender. No hepatosplenomegaly EXT: No clubbing, cyanosis, or edema Assessment: 1. Adrenal insufficiency we talked about the importance of presenting earlier she gets a febrile illness or starts to feel poorly. We also talked about the importance of continued compliance with medication. Comprehensive metabolic panel, Prolactin, Insulin-like growth factor 2. Guero syndrome see above Prolactin, Insulin-like growth factor 3. RENAL INSUFFICIENCY followup labs are ordered. She's given reassurance that her renal dysfunction is nowhere close to her who is on dialysis and I don't expect her to ev er require dialysis. Comprehensive metabolic panel, CBC w/ Differential 4. Hypothyroidism labs are ordered for 3 months from now with adjustment in her thyroid m edication a follow T3, free, T4, free 5. Hyperlipidemia she reports hyperlipidemia in the past and wonders if it's connected to her adrenal insufficiency. We talked about that today. Lipid Profile documented in this en counter Plan of [...] [place] | | | | | | [address] | | | | | | | | +--------+---------+ + + + | 07/25/ | Office | Cardiology | Renetta, | | | 2020 | Visit | | [facility] [address] | | | | | | [place], | | | | | | [place] [address] | | | | | | [phone] | | | | | | | | +--------+---------+ + + + | 09/03/ | Office | Endocrinology | Cheryl Zee MD | | | 2020 | Visit | | [address] [place] | | | | | | [address] [place] | | | | | | [id number] | | | | | | | | +--------+---------+ + + + + +------+--------+ + + | Name | Type | Priori | Associated Diagnoses | Order Schedule | | | | ty | | | + +------+--------+ + + | Comprehensive | Lab | Routin | Adrenal | Expected: | | metabolic panel | | e | insufficiency (HCC) | 08/14/2012, Expires: | | | | | RENAL INSUFFICIENCY | 05/16/2013 | + +------+--------+ + + | Lipid Profile | Lab | Routin | Hyperlipidemia | Expected: | | | | e | | 08/14/2012, Expires: | | | | | | 05/16/2013 | + +------+--------+ + + | CBC w/ Differential | Lab | Routin | RENAL | Expected: | | | | e | INSUFFICIENCY | 08/14/2012, Expires: | | | | | | 05/16/2013 | + +------+--------+ + + | T3, free | Lab | Routin | Hypothyroidism | Expected: | | | | e | | 08/14/2012, Expires: | | | | | | 05/16/2013 | + +------+--------+ + + | T4, free | Lab | Routin | Hypothyroidism | Expected: | | | | e | | 08/14/2012, Expires: | | | | | | 05/16/2013 | + +------+--------+ + + | Prolactin | Lab | Routin | Adrenal | Expected: | | | | e | insufficiency (HCC) | 08/14/2012, Expires: | | | | | Guero syndrome | 05/16/2013 | | | | | (HCC) | | + +------+--------+ + + | Insulin-like growth | Lab | Routin | Adrenal | Expected: | | factor | | e | insufficiency (HCC) | 08/14/2012, Expires: | | | | | Guero syndrome | 05/16/2013 | | | | | (HCC) | | + +------+--------+ + + documented as of this encounter Visit Diagnoses + + | Diagnosis | + + | Adrenal insufficiency (HCC) Glucocorticoid deficiency | + + | Guero syndrome (HCC) Panhypopituitarism | + + | RENAL INSUFFICIENCY Unspecified disorder resulting from impaired renal function | + + | Hypothyroidism Unspecified hypothyroidism | + + | Hyperlipidemia Other and unspecified hyperlipidemia | + + documented in this encounter
--- OUTSIDE RECORDS SUMMARY | ~2020-01-04 | XMS | Encounter Summary ---
Demographics + + + | Address | [address] | | | [place] [address] | + + + | Home Phone [...] Author | [facility] | | [...] [place], | | | | | [place] [address] | | + + + + + | Ryan Vogt | ECON | Unknown | | + + + + + | Rob Vogt | ECON | Unknown | | + + + + + Care Team Providers + +------+ + | Care Adjusto Writer Operator Name | Role | Phone | + +------+ + | Abrahan Samaniego MD | PCP | | + +------+ + Reason for Visit + +--------+ + | Reason | Onset | Comments | | | Date | | + +--------+ + | Appointment | 07/01/ | CT Scan | | | 2015 | | + +--------+ + Encounter Details +--------+ + + + + | Date | Type | Department | Care Team | Description | +--------+ + + + + | 07/01/ | Telephone | [facility] | Abrahan Samaniego MD | Appointment (CT | | 2015 | | [address] | [address] [place] [address] | Scan) | | | | [place], | [place] | | | | | [place] [address] | [address] | | | | | [phone] | | | +--------+ + + + [...] Telephone Encounter - Christina Wilson LPN - 07/01/2015 2:05 PM PSTLeft message with keith echavarria to contact imaging to schedule CTElectronically signed by Christina Wilson LPN at 2:06 PM PSTTelephone Encounter - Nini Martinez - 07/01/2015 12:55 PM PSTContact/Ifeoma echavarria: Patient / Oliva Contact Number: [phone] Provider/Nurse: Dr. Samaniego/ Christina Reason for Call: Patient called to schedule CT and ask question about her as well. Last Appointment: 06-27-2015 Next Appointment: NONE documented [...] [place] | | | | | | [id number] | | | | | | | | +--------+---------+ + + + | 07/25/ | Office | Cardiology | Renetta, | | | 2020 | Visit | | [address] [address] | | | | | | [place], | | | | | | [place] [address] | | | | | | [phone] | | | | | | | | +--------+---------+ + + + | 09/03/ | Office | Endocrinology | Cheryl Zee MD | | | 2020 | Visit | | [address] [place] | | | | | | [address] [place] | | | | | | [address] | | | | | | | | +--------+---------+ + + + documented as of this encounter Visit Diagnoses Not on filedocumented in this encounter"
--- OUTSIDE RECORDS SUMMARY | ~2020-01-04 | XMS | Encounter Summary ---
Demographics + + + | Address | [address] | | | [place] [address] | + + + | Home Phone | | + + + | Preferred Language | Unknown | + + + | Marital Status | | + + + | Yarsanism Affiliation | [id number] | + + + | Race | Unknown | + + + | Ethnic Group | Unknown | + + + Author + + + | Author | [facility] | [...] [place], | | | | | [place] [address] | | + + + + + | Ryan Vogt | ECON | Unknown | | + + + + + | Rob Vogt | ECON | Unknown | | + + + + + Care Team Providers + +------+ + | Care Running Specialist Name | Role | Phone | + +------+ + | Abrahan Samaniego MD | PCP | | + +------+ + Reason for Referral Physical Medicine (Routine) +--------+ + + + + + | Status | Reason | Specialty | Diagnoses / | Referred By | Referred To | | | | | Procedures | Contact | Contact | +--------+ + + + + + | Closed | Specialty | Physical | Diagnoses | [facility], | | | | Services | Therapy | Sprain of | Ulices | | | | Required | | shoulder, | MD Ricco | | | | | | left Place | Need updated | | | | | | of | address | | | | | | occurrence, | | | | | | | industrial | | | | | | | places and | | | | | | | premises | | | +--------+ + + + + + Reason for Visit + + + | Reason | Comments | + + + | Shoulder Injury | Left | + + + Occupational Therapy (Routine) +--------+ + + + + + | Status | Reason | Specialty | Diagnoses / | Referred By | Referred To | | | | | Procedures | Contact | Contact | +--------+ + + + + + | Closed | Specialty | Immediate | Diagnoses | [place], | [facility] | | | Services | Care | Shoulder | Abrahan Cortez MD | Occupational | | | Required | | pain | [address] [place] [address] | [facility] | | | | | | [place] | [address] | | | | | | [place], | [address] | | | | | | [place] [address] | [place], | | | | | | Phone: | [place] [address] | | | | | | [phone] | Phone: | | | | | | Fax: | [phone] | | | | | | [phone] | Fax: | | | | | | | [phone] | +--------+ + + + + + Encounter Details +--------+---------+ + + + | Date | Type | Department | Care Team | Description | +--------+---------+ + + + | 09/15/ | Office | [facility] | Ulices Simmons | Sprain of shoulder, | | 2012 | Visit | OCCUPATIONAL HEALTH | MD Ricco Need | left (Primary Dx); | | | | [place] [address] | updated address | Place of occurrence, | | | | [address] [place] | | industrial places | | | | [place], [place] | | and premises | | | | [address] | | | | | | [phone] | | | +--------+---------+ + + + [...] + + + | Blood Pressure | 134/81 | 09/15/2012 10:25 AM | | | | | PDT | | + + + + + | Pulse | 74 | 09/15/2012 10:25 AM | | | | | PDT | | + + + + + | Temperature | 36.8 C (98.3 F) | 09/15/2012 10:25 AM | | | | | PDT | | + + + + + | Respiratory Rate | 16 | 09/15/2012 10:25 AM | | | | | PDT | | + + + + + | Oxygen Saturation | - | - | | + + + + + | Inhaled Oxygen | - | - | | | Concentration | | | | + + + + + | Weight | 69.8 kg (153 lb 12.8 | 09/15/2012 10:25 AM | | | | oz) | PDT | | + + + + + | Height | 160 cm (5' 3") | 09/15/2012 10:25 AM | | | | | PDT | | + + + + + | Body Mass Index | 27.24 | 09/15/2012 10:25 AM | | | | | PDT | | + + + + + documented in this encounter Progress Notes Ulices Simmons MD - 09/16/2012 11:47 AM PDTSee dictation [id number] liban d by Ulices Simmons MD at 09/16/2012 11:47 AM PDTWaring, Ulices Chacko MD - 09/16/19 13 12:00 AM PDT OCCUPATIONAL MEDICINE [address] [place] [address] [place] [address] FAX: [phone] OFFICE VISIT CLAIM #: [id number] DATE OF INJURY: 01/06/2012 EMPLOYER: [employer] GUARANTOR: Mario Serrano COMPLAINT: Left shoulder injury, initial evaluation with me, followup care. S: The injured worker is 62 years of age here for a scheduled evaluation and initial eval uation with me for her work-related injury. She began having increased problems in her shou lder during a stretch of time when they were short staffed at the [facility]. 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 When it did not impr ove with a modest change in her work responsibilities, she presented for evaluation and andrea e conservative measures were started, including activity modification and modest medication s, and the injured worker feels that she is possibly slightly better but is hoping that andrea ething like physical therapy may bring about resolution of the condition. She is working in a modified position. They are having her just do the filing at the chest and waist levels, and this seems to be helping quite a bit. She does note that opening the cell doors, which are very heavy is something that is difficult and she has been using her right arm for sandra t (she is right-hand dominant) and she is concerned about injuring her right arm if she ove ruses it and we have addressed this as noted below. She has worked for the [facility] in the filing room for a 7 1/2 year period of time. 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 Her duties include filing medical records into charts, preparing charts for use by the providers, computer use, moving charts , etc. It seems that any use of the shoulder causes some discomfort, ice pack and resting s eems to have helped. It is somewhat better in the morning and at night, worse during the mi ddle of the day. There has been no neck symptoms or upper back symptoms to suggest an occul t spinal problem. She was asymptomatic prior to the onset of these symptoms and denies any prior history of any injuries or problems to her left shoulder. She denies any other affect ed areas as a consequence of these responsibilities that she was required to do during that time frame. She does note a prior worker's compensation claim for a back injury in the [facility] from pulling charts, but that has cleared up and was not a factor prior to this injury. PAST MEDICAL HISTORY MEDICATIONS: Include: 1. Prednisone. 2. Vitamin D3. SHE HAS HAD ALLERGIC REACTIONS TO SUCCINYLCHOLINE AND APPARENTLY SENSITIVITIES TO CHLORIDE PRODUCTS. SOCIAL HISTORY: She is . She has a high school education plus 2 years of college. S he does not smoke or drink alcohol. FAMILY MEDICAL HISTORY: Noncontributory. REVIEW OF SYSTEMS: Positive for adrenal insufficiency and her HPI symptoms, as well as ring ing in the ears. She denies fevers, chills, night sweats, unexplained weight changes or kno wn personal diagnosis of cancer. OBJECTIVE VITAL SIGNS: Unremarkable. No acute distress. Weight 153 pounds, height 63 inches, temperat ure 98.3, blood pressure 134/81, pulse 74, respiratory rate of 16. NECK: Normal to inspect ion, no deformity. No point spinous tenderness or paraspinous muscle spasticity. She has no restriction to range of motion and there is no Lhermitte phenomenon or other radicular sym ptoms to suggest an occult cervical radiculopathy to explain the left shoulder problems. BACK: The upper back is normal to inspection. No deformity. No point tenderness or paraspin ous muscle spasticity. EXTREMITIES: Limb survey shows no gross discrepancy in muscle bulk or tone. No clubbing, c yanosis, or edema or evidence of synovial changes. Focused exam on the left shoulder shows that she has discomfort across the diffuse area in the upper deltoid and then somewhat acros s the anterior pectoralis insertion area. Palpation along the AC joint and anterior and pos terior glenohumeral joint lines does not reveal any acute tenderness. Palpation in the delt oid and pectoralis area reveals some notice of discomfort but no tenderness by the injured worker. Range of motion testing was actually quite good with regards to forward flexion and elevation, abduction and elevation, and performance of Apley back scratch test. She had th e most discomfort in mild restriction on Apley liftoff test. She had mild discomfort but no weakness on empty can test and internal and external rotation were otherwise performed mita sonably well with only mild discomfort. NEUROLOGIC: Focused exam on the upper extremities showed no sensory deficits to light touch in either a global or dermatomal distribution. 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 Deep tendo n reflexes were symmetric and brisk for biceps, triceps and brachial radialis. Gait and ce rebellar was unremarkable. IMAGING/DIAGNOSTICS: None indicated based on evaluation this date. PENDING INTERVENTIONS: Conservative measures continue with mild adjustments as noted below . A SPRAIN LEFT SHOULDER. Does not appear to be significant for rotator cuff injury at this poi nt in time, anticipated progress with initial conservative treatment. P: I have indicated to the injured worker that I am optimistic that she will respond well to conservative treatment. I would like for her to get started in physical therapy and she had request to go to [facility] in [place] and I have written a pres cription for that, and indicated to the injured worker that [facility] will go through the pro cess of getting authorization for the treatment and contact her for the appointment start t windy. She is going to continue on a modified duty position and I will followup in 2 weeks' t windy or certainly p.r.n. development of problems. She voiced understanding and agreement. Sh e did not request or need any prescription refills or other needs at this time. E: Modified duty. R: Restrictions are limited use of the left arm, no reaching above the shoulder level. Im pairment undetermined. Based on current objective findings it is not felt to be a likely co nsequence of this injury but she is certainly not yet at MMI status. Cam Simmons MD / TB JOB #: [id number] signed by Ulices Simmons MD at 09/16/2012 3:40 PM PDTd ocumented in this encounter Miscellaneous Notes Plan of Care - ON[facility]AN [facility] [place] - 09/15/2012 12:00 AM PDT lan of Care - ONBASE SCAN [facility] - 09/15/2012 12:00 AM PDTElect ronically signed by nandini [facility] at 09/27/2012 3:09 PM PDTPlan of Care - ONBASE SCAN [facility] [place] - 09/15/2012 12:00 AM PDT docu mented in this encounter Plan of [...] | | | | | | [place] [address] | | | | | | [phone] | | | | | | | | +--------+---------+ + + + | 09/03/ | Office | Endocrinology | Cheryl Zee MD | | | 2020 | Visit | | [address] | | | | | | [address] [place] | | | | | | [id number] | | | | | | | | +--------+---------+ + + + + + +--------+ + + | Name | Type | Priori | Associated Diagnoses | Order Schedule | | | | ty | | | + + +--------+ + + | Ambulatory referral | Outpatient | Routin | Sprain of | Ordered: 09/15/2012 | | to Physical Therapy | Referral | e | shoulder, left | | | | | | Place of occurrence, | | | | | | industrial places | | | | | | and premises | | + + +--------+ + + documented as of this encounter Visit Diagnoses + + | Diagnosis | + + | Sprain of shoulder, left - Primary Sprain and strain of unspecified site of shoulder | | and upper arm | + + | Place of occurrence, industrial places and premises | + + documented in this encounter
--- OUTSIDE RECORDS SUMMARY | ~2020-01-04 | XMS | Encounter Summary ---
Demographics + + + | Address | [address] | | | [place] [address] | + + + | Home Phone [...] Author | [facility] | | | and [place] [...] [place], | | | | | [place] [address] | | + + + + + | Ryan Vogt | ECON | Unknown | | + + + + + | Rob Vogt | ECON | Unknown | | + + + + + Care Team Providers + +------+ + | Care Tax Services Intern Name | Role | Phone | + +------+ + | Abrahan Samaniego MD | PCP | | + +------+ + Encounter Details +--------+ + + + + | Date | Type | Department | Care Team | Description | +--------+ + + + + | 03/06/ | Hospital | [facility] | Cheryl Zee MD | | | 2012 | Encounter | [facility] | [address] [facility] | | | | | [address] [place] | [address] [place], [place] | | | | | [place] | [id number] | | | | | [address] | | | | | | [phone] | | | +--------+ + + + [...] [place] | | | | | | [address] | | | | | | | | +--------+---------+ + + + | 07/25/ | Office | Cardiology | Renetta, | | | 2020 | Visit | | [facility] | | | | | | [place] | | | | | | [place] [address] | | | | | | [phone] | | | | | | | [...]
--- OUTSIDE RECORDS SUMMARY | ~2020-01-04 | XMS | Encounter Summary ---
Demographics + + + | Address | [address] | | | [place] [address] | + + + | Home Phone | | + + + | Preferred Language | Unknown | + + + | Marital Status | | + + + | Yarsani Affiliation | 1027 | + + + | Race | Unknown | + + + | Ethnic Group | Unknown | + + + Author + + + | Author | [facility] | | | and [place] | + + + | Organization | [facility] | | | and [...] [place], | | | | | [place] [address] | | + + + + + | Ryan Vogt | ECON | Unknown | | + + + + + | Rob Vogt | ECON | Unknown | | + + + + + Care Team Providers + +------+ + | Care Computer Technology Trainer Name | Role | Phone | + +------+ + | Abrahan Samaniego MD | PCP | | + +------+ + Reason for Referral Diagnostic/Screening (Emergency) +--------+--------+ + + + + | Status | Reason | Specialty | Diagnoses / | Referred By | Referred To | | | | | Procedures | Contact | Contact | +--------+--------+ + + + + | Closed | | Radiology | Diagnoses | [place], | [facility] | | | | | Diplopia | Abrahan Cortez MD | [address] | | | | | Procedures | [address] | [place], | | | | | MRI Brain w | STREET | [place] | | | | | wo Contrast | [place], | [address] | | | | | | [place] [address] | Phone: | | | | | | Phone: | [phone] | | | | | | [phone] | Fax: | | | | | | Fax: | [phone] | | | | | | [phone] | | +--------+--------+ + + + + Encounter Details +--------+---------+ + + + | Date | Type | Department | Care Team | Description | +--------+---------+ + + + | 10/24/ | Office | [facility] | Abrahan Samaniego MD | Diplopia (Primary | | 2012 | Visit | MEDICINE [address] | [address] [facility] | Dx) | | | | [address] [place], | [place] | | | | | [place] [address] | [address] | | | | | [phone] | | | +--------+---------+ + + + [...] + + + | Blood Pressure | 110/72 | 10/24/2012 4:28 PM | | | | | PDT | | + + + + + | Pulse | 77 | 10/24/2012 4:28 PM | | | | | PDT | | + + + + + | Temperature | - | - | | + + + + + | Respiratory Rate | 16 | 10/24/2012 4:28 PM | | | | | PDT | | + + + + + | Oxygen Saturation | 98% | 10/24/2012 4:28 PM | | | | | PDT | | + + + + + | Inhaled Oxygen | - | - | | | Concentration | | | | + + + + + | Weight | 69.9 kg (154 lb) | 10/24/2012 4:28 PM | | | | | PDT | | + + + + + | Height | - | - | | + + + + + | Body Mass Index | 27.28 | 10/14/2012 9:58 AM | | | | | PDT | | + + + + + documented in this encounter Progress Notes Abrahan Samaniego MD - 10/24/2012 4:40 PM PDT Subjective: Patient ID: Mona Vogt is a 62 y.o. female. HPI Mona was in [employer] today and was looking at the menu for chicken. She was looking at e menu when she had an acute visual change with one eye looking up and the other eye not wan ting to move. It was "like being cross eyed up and down". It lasted for about 10-15 seconds . There was no N/T/W. She had the idea to take her glasses off thinking that they might be corked but that didn't make a difference. She had been to PT this AM for PT and they apparen juventino worked on her neck some today but didn't pop or jar her neck thought they did some rotat ional stretching. That was about 5 hours before the event. She has never had anything like this before. She has a history of ocular migraines but she says that this was not at all li ke that. She had no headache after the fact. There was no vertigo, nausea, vomiting. When sh e went to pay everything including speech, coordination, and vision were completely normal. She has been at home since then and there has been no problems No chest pain, palpitations, shortness of breath, orthopnea, PND, lightheadedness, syncope, near syncope, exertional pain in the arm/jaw/shoulder/back, peripheral edema. Denies hemoptysis, productive cough, wheezing, shortness of breath, dyspnea on exertion. 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 Other activity . EGD in 2006.Antral erosions, H pylori positive. H/O eclampsia History of eclampsia 1971 with DIC, acute renal failure Other activity History of blood transfusions Tinnitus Low back pain Other activity Right fifth finger Dupuytren's without contractures. Adrenal insufficiency 05/16/2012 Patient Active Problem List Diagnosis Date Noted POA Preventative health care 05/13/2012 Unknown Priority: High Sprain of left shoulder 09/30/2012 Unknown Adrenal insufficiency 05/16/2012 Unknown HIP PAIN Unknown HYPOTHYROIDISM Unknown HYPERLIPIDEMIA Unknown MIROSLAVA SYNDROME Unknown RENAL INSUFFICIENCY Unknown DUPUYTREN'S CONTRACTURE 12/15/2011 Unknown OSTEOARTHRITIS, KNEE 12/15/2011 Unknown SORE THROAT 09/23/2011 Unknown OTHER DISEASES OF NASAL CAVITY AND SINUSES 09/23/2011 Unknown OTHER AND UNSPECIFIED HYPERLIPIDEMIA 11/24/2010 Unknown Past Surgical History Procedure Date Bilateral tubal ligation. Left ganglion cyst removal 1970 Endometrial biopsy in 2006: benign. Skulll biopsy 09/28/2011 (Benign) History Social History Marital Status: Spouse Name: N/A Number of Children: N/A Years of Education: N/A Social History Main Topics Smoking status: Never Smoker Smokeless tobacco: Never Used Alcohol Use: No Drug Use: No Sexually Active: None Other Topics Concern None Social History Narrative 43rd wedding anniversary was 03/20/2011 which is a big deal because her has been s o ill. Current Outpatient Prescriptions Medication Sig Dispense Refill LEVOXYL 100 MCG tablet take 1 tablet by mouth once daily 90 tablet 2 cholecalciferol (VITAMIN D-3) 1,000 units tablet Take 1,000 Units by mouth Daily. predniSONE (DELTASONE) 1 mg tablet Take 1 by mouth daily with one 5 mg tab (total 6mg b y mouth daily ) predniSONE (DELTASONE) 5 mg tablet Take 1 tablet by mouth daily with one 1 mg tab (tota l 6mg by mouth daily ) Calcium Carbonate-Vitamin D 600-125 MG-UNIT TABS Take by mouth Daily. Allergies Allergen Reactions Succinylcholine Chloride Review of Systems Objective: Physical Exam NEURO: Alert and Oriented to Person, Place, Situation, Date Cranial Nerves II-XII intact. Special attention to EOM which were normal Negative Romberg and Pronator Drift Finger to nose: Normal Rapid Alternating Movements: Normal Speech:Normal Affect: Normal Strength is 5/5 in the deltoids, biceps, triceps, wrist extensors, wrist flexors, interosse i, hip flexors, quadriceps, biceps femoris, anterior tibialis, gastrocnemius muscles, and puente llucis longus, ankle inverters, ankle everters. Reflexes:normal Babinski and symmetric biceps, triceps, brachioradialis, knee jerk, ankle j erk Sensation: Grossly in tact Heel/Toe/Tandem walking: Normal No tremor Normal Coordination GEN: No acute distress. HEENT:EOMI, OP normal CHEST: Clear to auscultation. No wheezes, rales, rhonchi. Normal effort and movement CAR: Rhythm:regular Murmur:no [place]:no JVP:no Pulses:normal radial and carotid. Carotid bruit not appreciated ABD: non-distended, non-tender. No hepatosplenomegaly EXT: No clubbing, cyanosis, or edema Assessment: 1. Diplopia MRI Brain w wo Contrast Etiology is not clear to me. She had an MRI done less than 1 year ago. The first thing to r /u is a stroke. Also consider mass lesion, isolated CN palsy which can occur secondary to s ystemic illnesses I will start with an MRI of the brain and brain stem with and without contrast. Further eval and workup to follow If this happens again, report directly to the ER preferably by ambulance. The importance of prompt attention for neurologic and any other critical illness was discussed documented in this enc ounter Plan of Treatment +--------+---------+ + + + | Date | Type | Specialty | Care Team | Description | +--------+---------+ + + + | 04/29/ | Office | Internal Medicine | Abrahan Samaniego MD | | | 2019 | Visit | | [address] [place] [address] | | | | | | [place] | | | | | | [address] | | | | | | | | +--------+---------+ + + + | 07/25/ | Office | Cardiology | Renetta, | | | 2020 | Visit | | [place] [address] | | | | | | [place] | | | | | | [place] [address] | | | | | | [phone] | | | | | | | | +--------+---------+ + + + | 09/03/ | Office | Endocrinology | Cheryl Zee MD | | | 1 | Visit | | [address] | | | | | | [address] [place] | | | | | | [id number] | | | | | | | | +--------+---------+ + + + documented as of this encounter Results MRI Brain w wo Contrast (10/25/2012 3:56 PM PDT) + + | Specimen | + + | | + + + + + | Narrative | Performed At | + + + | [facility] | [place] | | Department [address] [facility] [place] | [facility] | | [ rep [address]] [ rep ct [facility] | | st zip] Signed | - IMAGING | | | | | Patient Name: MONA VOGT Physician: | | | PAOLA.01 : 1950 Age: 62 Sex: F Unit #: [id number] | | | Exam Date: 10/25/12 Location: [facility] [place] | | | Report #: [id number] Page: | | | %(RAD)RES..mtdd.print.filter("pg") of %(RAD) | | | RES..mtdd.print.filter("tpg") | | | | | | Accession Number: [id number] | | | MRI BRAIN EXTENDED, WITH AND WITHOUT IV CONTRAST, 10/25/2012 | | | CLINICAL HISTORY: MOMENTARY DIPLOPIA. COMPARISON: MRI | | | brain 07/21/2011. TECHNIQUE: Axial T1, T1 post contrast, | | | T2, FLAIR with fat saturation, diffusion weighted images, and GRE; | | | sagittal T1, T1 fat sat post contrast; and coronal T1 post contrast | | | images of the brain were obtained. Postcontrast images were | | | obtained following administration of 7.5 mL Gadavist contrast. | | | FINDINGS: There is progression of sclerotic change within | | | the bone of the high right frontal calvarium, with the area of | | | abnormality appearing to cross the coronal suture. A secondary area | | | of signal abnormality is seen in the right frontal bone just | | | superior to the right frontal sinus. The sclerotic change does not | | | appear to extend through the inner table of the skull or cause | | | subsequent contour abnormality. No abnormal contrast enhancement | | | is associated with the lesion. The brain shows normal | | | morphology and signal characteristics. There are normal contrast | | | enhancement, T2 hyperintensity, intraaxial susceptibility | | | abnormality, or diffusion restriction is present. The ventricles | | | and basal cisterns are normal in size. The midline structures are | | | intact. Note is again made of small size of the pituitary gland, | | | with extension of the CSF space into the sella, compatible with | | | empty sella syndrome. The cerebellar tonsils are even with the | | | foramen magnum. There is no evidence of mass effect or midline | | | shift. No extraaxial fluid collection is present. The major | | | intracranial vessels are grossly unremarkable. No abnormalities are | | | seen in the region of the optic nerves. The orbital contents are | | | normal. Minimal mucosal thickening is seen at the floor of the left | | | maxillary sinus. The paranasal sinuses and mastoid air cells are | | | otherwise unremarkable. No abnormalities are seen in the region of | | | the internal acoustic canals. The extracranial soft tissues are | | | normal. IMPRESSION: SCLEROTIC CHANGE IN THE RIGHT | | | FRONTAL BONE, PROGRESSED COMPARED WITH 2011. RECOMMEND SKULL | | | X-RAY WITH STANDARD AND TANGENTIAL VIEWS. LEFT MAXILLARY SINUS | | | DISEASE. NO EVIDENCE OF ABNORMALITY OF THE ORBITS. | | | <<Signature on File>> | | | Linden | | | David Kelley MD10/26/12900 <Electronically signed by Linden Hernandez | | | Allie MONTIEL> Linden Kelley MD 10/25/12 1556 | | | Supervisor Liquid Yeast: Rajni Mar10/26/12 0829 Abrahan | | | Diego Samaniego MD | | + + + + + + + + | Performing | Address | City/State/Zipcode | Phone Number | | Organization | | | | + + + + + | [facility] | [address] | [place] | [phone] | | [facility] | | [address] | | | - IMAGING | | | | + + + + + documented in this encounter Visit Diagnoses + + | Diagnosis | + + | Diplopia - Primary | + + documented in this encounter
--- OUTSIDE RECORDS SUMMARY | ~2020-01-04 | XMS | Encounter Summary ---
Demographics + + + | Address | [address] | | | [place] [address] | + + + | Home Phone | | + + + | Preferred Language | Unknown | + + + | Marital Status | | + + + | Jehovah'S Witness Affiliation | 1027 | + + + | Race | Unknown | + + + | Ethnic Group | Unknown | + + + Author + + + | Author | [facility] | | | and [place] | + + + | Organization | [facility] [...] [place], | | | | | [place] [address] | | + + + + + | Ryan Vogt | ECON | Unknown | | + + + + + | Rob Vogt | ECON | Unknown | | + + + + + Care Team Providers + +------+ + | Care Aboriginal Community Council Member Name | Role | Phone | + +------+ + PCP | Unavailable | + +------+ + Encounter Details +--------+ + + + + | Date | Type | Department | Care Team | Description | +--------+ + + + + | 01/03/ | Hospital | [facility] | [place], | | | 2007 | Encounter | MED CTR EMERGENCY | Ricco Alexis MD [address] | | | | | [place] [address] | [facility] | | | | | [place] | [place] [address] | | | | | [address] | [phone] | | | | | [phone] | | | +--------+ + + + [...] | | 2019 | Visit | | [address] [place] [address] | | | | | | [place] | | | | | | [address] | | | | | | | | +--------+---------+ + + + | 07/25/ | Office | Cardiology | Renetta | | | 2020 | Visit | | [place] [address] | | | | | | [place] | | | | | | [place] [address] | | | | | | [phone] | | | | | | | | +--------+---------+ + + + | 09/03/ | Office | Endocrinology | Cheryl Zee MD | | | 2020 | Visit | | [address] [place] | | | | | | [address] [place] | | | | | | [address] | | | | | | | | +--------+---------+ + + + documented as of this encounter Visit Diagnoses Not on filedocumented in this encounter"
--- OUTSIDE RECORDS SUMMARY | ~2020-01-04 | XMS | Encounter Summary ---
Demographics + + + | Address | [address] | | | [place] [address] | + + + | Home Phone [...] | Author | [facility] | | | and [place] [...] [place], | | | | | [place] [address] | | + + + + + | Ryan Vogt | ECON | Unknown | | + + + + + | Rob Vogt | ECON | Unknown | | + + + + + Care Team Providers + +------+ + | Care Planning Official Name | Role | Phone | + +------+ + | Abrahan Samaniego MD | PCP | | + +------+ + Reason for Visit + + + | Reason | Comments | + + + | Hypertension | discuss high BP and vertigo | + + + Encounter Details +--------+---------+ + + + | Date | Type | Department | Care Team | Description | +--------+---------+ + + + | 10/04/ | Office | [facility] | Abrahan Samaniego MD | Elevated blood | | 2019 | Visit | MEDICINE [address] | [address] [facility] | pressure reading in | | | | [place], | [place] | office without | | | | [place] [address] | [address] | diagnosis of | | | | [phone] | | hypertension | | | | | | (Primary Dx); | | | | | | Preventative health | | | | | | care; Vertigo; | | | | | | Osteoporosis without | | | | | | current | | | | | | pathological | | | | | | fracture, | | | | | | unspecified | | | | | | osteoporosis type | +--------+---------+ + + + Social History [...] + | Blood Pressure | 126/70 | 10/04/2018 2:19 PM | | | | | PDT | | + + + + + | Pulse | 75 | 10/04/2018 2:19 PM | | | | | PDT | | + + + + + | Temperature | 36.2 C (97.1 F) | 10/04/2018 2:19 PM | | | | | PDT | | + + + + + | Respiratory Rate | 18 | 10/04/2018 2:19 PM | | | | | PDT | | + + + + + | Oxygen Saturation | 97% | 10/04/2018 2:19 PM | | | | | PDT | | + + + + + | Inhaled Oxygen | - | - | | | Concentration | | | | + + + + + | Weight | 69.9 kg (154 lb 1.6 | 10/04/2018 2:19 PM | | | | oz) | PDT | | + + + + + | Height | - | - | | + + + + + | Body Mass Index | 26.45 | 09/23/2018 2:43 PM | | | | | PDT | | + + + + + documented in this encounter Patient Instructions Patient Instructions Abrahan Samaniego MD - 10/04/2018 2:30 PM PDTSchedule a mammogram for a fter January 2018 Your next colonoscopy is 2023 I have ordered the DEXA here for you. If you don't hear from the computer game designer within 5 busines s days, please send a note. When you get it done, make sure they send a copy to Dr Us ctronically signed by Abrahan Samaniego MD at 10/04/2018 2:57 PM PDT documented in this encounter Progress Notes Abrahan Samaniego MD - 10/04/2018 2:30 PM PDT Subjective: Patient ID: Oliva Vogt is a 68 y.o. female. In ER on 09/23/18 with BPPV. BP in ED was 128/61. When seen by her Endo Dr Zee in [place] on 09/19/18 she was high with 160/90,170/98, 162/96 and 128/90. She was referred back to me for treatment options if needed. She says that she had been inadvertently eating a lot of sa lt. She was eating sunflower seeds (salted) by the handful since her grandaughter started so ftball. She has stopped doing that. She no longer has vertigo. She has been checking her BP now at home. 142/82 122/71 128/62 146/88 129/75 131/77 118/76 124/77 121/75 No chest pain, palpitations, shortness of breath, orthopnea, PND, lightheadedness, syncope, near syncope, exertional pain in the arm/jaw/shoulder/back, peripheral edema. Dr Zee was also curious regarding cancer screening: BiRads 1 mammo in 01/22 COLONOSCOPY 03/12/14 was normal with repeat to be done in 2023 in this pt with no personal o r family history of colon polyps or cancer. Patient's medications, allergies, past medical, surgical, social and family histories were obtained and reviewed as appropriate. ROS Denies hemoptysis, productive cough, wheezing, shortness of breath, dyspnea on exertion. No chest pain, palpitations, shortness of breath, orthopnea, PND, lightheadedness, syncope, near syncope, exertional pain in the arm/jaw/shoulder/back, peripheral edema. Denies heat or cold intolerance, change in hair/skin/nails or bowel habits, polyuria, polyd ipsia, visual disturbance, headache, weakness, weight gain/loss Objective:BP 126/70 | Pulse 75 | Temp 36.2 C (97.1 F) (Temporal) | Resp 18 | Wt 69. 9 kg (154 lb 1.6 oz) | SpO2 97% | BMI 26.45 kg/m Physical Exam GEN: No acute distress. HEENT:EOMI, OP normal CHEST: Clear to auscultation. No wheezes, rales, rhonchi. Normal effort and movement CAR: Rhythm:regular Murmur:no [place]:no JVP:no Pulses:normal radial and carotid ABD: non-distended, non-tender. No hepatosplenomegaly EXT: No clubbing, cyanosis, or edema Assessment/Plan: 1. Elevated blood pressure reading in office without diagnosis of hypertension Looks like she is doing fine today and with all of her readings that she did at home. I am not adding anything to her list of meds today 2. Preventative health care Despite Epic, she is up to date on her cancer screenings. We will attempt to update this suboptimal electronic medical record. Please note that her EMR alread has the colonoscopy entered and yet the BPA keeps firing that she needs another. She does not. BiRads 1 mammo in 01/22 COLONOSCOPY 03/12/14 was normal with repeat to be done in 2023 in this pt with no personal o r family history of colon polyps or cancer. 3. Vertigo I think that this was due to the excessive salt (unintentional with the sunflow er seeds) and then the beverages that she had. Almost seems more like Meniere's episode (h/ o of tinnitus as well) but now that she has changed her sodium intake, the edema and the mac tigo are both gone. documented in this enc ounter Plan of Treatment +--------+---------+ + + + | Date | Type | Specialty | Care Team | Description | +--------+---------+ + + + | 04/29/ | Office | Internal Medicine | Abrahan Samaniego MD | | | 2019 | Visit | | [address] [place] [address] | | | | | | [place] | | | | | | [address] | | | | | | | | +--------+---------+ + + + | 07/25/ | Office | Cardiology | Renetta, | | | 2020 | Visit | | [address] [address] | | | | | | [place], | | | | | | [place] [address] | | | | | | [phone] | | | | | | | | +--------+---------+ + + + | 09/03/ | Office | Endocrinology | Cheryl Zee MD | | | 2020 | Visit | | [address] | | | | | | [address] [place] | | | | | | [phone] | | | | | | | | +--------+---------+ + + + documented as of this encounter Results DEXA Bone Density wo [place] (12/20/2018 2:58 PM PDT) + + | Specimen | + + | | + + + + + | Narrative | Performed At | + + + | DEXA BONE DENSITY STUDY WO VERT FX ASSESSMENT 12/20/2018 2:58 PM | [facility] [...] | + + | Elevated blood pressure reading in office without diagnosis of hypertension - Primary | + + | Preventative health care Routine general medical examination at [facility] | | facility | + + | Vertigo Dizziness and giddiness | + + | Osteoporosis without current pathological fracture, unspecified osteoporosis type | + + documented in this encounter"
--- OUTSIDE RECORDS SUMMARY | ~2020-01-04 | XMS | Encounter Summary ---
Demographics + + + | Address | [address] | | | [place] [address] | + + + | Home Phone [...] + + | Author | [facility] | | | and [place] [...] [place], | | | | | [place] [address] | | + + + + + | Ryan Vogt | ECON | Unknown | | + + + + + | Rob Vogt | ECON | Unknown | | + + + + + Care Team Providers + +------+ + | Care Kinder Teacher Name | Role | Phone | + +------+ + | Abrahan Samaniego MD | PCP | | + +------+ + Reason for Visit +---------+--------+ + | Reason | Onset | Comments | | | Date | | +---------+--------+ + | Results | 12/22/ | | | | 2019 | | +---------+--------+ + Encounter Details +--------+ + + + + | Date | Type | Department | Care Team | Description | +--------+ + + + + | 12/22/ | Telephone | [facility] | Abrahan Samaniego MD | Results | | 2018 | | MEDICINE [address] | [address] [facility] | | | | | [place], | [place] | | | | | [place] [address] | [id number] | | | | | [phone] | | | +--------+ + + + [...] Telephone Encounter - Christina Wilson LPN - 12/22/2018 11:02 AM PDTPatient notified of res ults elephone Encounter - Christina Wilson LPN - 12/22/2018 10:42 AM PDTLeft message to call. elephone Encounter - Abrahan Samaniego MD - 12/22/2018 7:58 AM PDTCall and let her know that her echo looks ok She has an appt with cardiology in Jan and they will go over in detail with her. I have forwarded her DEXA to Dr Zee. If she has more questions then she can schedule a 15 min appt documented in this encounter Plan of Treatment +--------+---------+ + + + | Date | Type | Specialty | Care Team | Description | +--------+---------+ + + + | 04/29/ | Office | Internal Medicine | Abrahan Samaniego MD | | | 2019 | Visit | | [address] [facility] | | | | | | [place] | | | | | | [address] | | | | | | | | +--------+---------+ + + + | 07/25/ | Office | Cardiology | Renetta, | | | 2020 | Visit | | [address] [address] | | | | | | [place], | | | | | | [place] [address] | | | | | | [phone] | | | | | | | | +--------+---------+ + + + | 09/03/ | Office | Endocrinology | Cheryl Zee MD | | | 2020 | Visit | | [address] [place] | | | | | | [address] [place] | | | | | | [address] | | | | | | | | +--------+---------+ + + + documented as of this encounter Visit Diagnoses Not on filedocumented in this encounter"
--- OUTSIDE RECORDS SUMMARY | ~2020-01-04 | XMS | Encounter Summary ---
Demographics + + + | Address | [address] | | | [place] [address] | + + + | Home Phone | | + + + | Preferred Language | Unknown | + + + | Marital Status | | + + + | Baptism Affiliation | 1027 | + + + | Race | Unknown | + + + | Ethnic Group | Unknown | + + + Author + + + | Author | [facility] | | | and [place] | + + + | Organization | [facility] | | [...] [place], | | | | | [place] [address] | | + + + + + | Ryan Vogt | ECON | Unknown | | + + + + + | Rob Vogt | ECON | Unknown | | + + + + + Care Team Providers + +------+ + | Care Polyethylene Combiner Name | Role | Phone | + +------+ + PCP | Unavailable | + +------+ + Encounter Details +--------+ + + + + | Date | Type | Department | Care Team | Description | +--------+ + + + + | 12/27/ | Hospital | [facility] | [place], | | | 2008 | Encounter | MED CTR EMERGENCY | Ricco Alexis MD [address] | | | | | [place] [address] | [facility] | | | | | [place] | [place] [address] | | | | | [address] | [phone] | | | | | [phone] | | | +--------+ + + + [...] | | 2019 | Visit | | [address] [place] [address] | | | | | | [place] | | | | | | [address] | | | | | | | | +--------+---------+ + + + | 07/25/ | Office | Cardiology | Renetta | | | 2020 | Visit | | [address] [address] | | | | | | [place] | | | | | | [place] [address] | | | | | | [phone] | | | | | | | | +--------+---------+ + + + | 09/03/ | Office | Endocrinology | Cheryl Zee MD | | | 2020 | Visit | | [address] [place] [address] | | | | | | [address] [place] | | | | | | [address] | | | | | | | | +--------+---------+ + + + documented as of this encounter Visit Diagnoses Not on filedocumented in this encounter"
--- OUTSIDE RECORDS SUMMARY | ~2020-01-04 | XMS | Encounter Summary ---
Demographics + + + | Address | [address] | | | [place] [address] | + + + | Home Phone [...] Author | [facility] [...] [place], | | | | | [place] [address] | | + + + + + | Ryan Vogt | ECON | Unknown | | + + + + + | Rob Vogt | ECON | Unknown | | + + + + + Care Team Providers + +------+ + | Care Human Projectile Name | Role | Phone | + [...] Description | +--------+---------+ + + + | 12/26/ | Surgery | [facility] | Benigno Deras, | CV LHC | | 2019 | | MED CTR CV INTRA OP | MD [address] | | | | | [address] | [place], | | | | | [place] | [place] [address] | | | | | [address] | [phone] | | | | | [phone] | | | +--------+---------+ + + + [...] + + + | Blood Pressure | 114/54 | 12/26/2018 12:00 PM | | | | | PDT | | + + + + + | Pulse | 67 | 12/26/2018 12:00 PM | | | | | PDT [...] + | Oxygen Saturation | 95% | 12/26/2018 12:00 PM | | | | | PDT [...] this encounter Discharge Instructions Instructions Selma Griffiths, SUNDEEP - 12/26/2018 Recovery After Procedural Sedation (Adult) [...] You can't be awakened Date Last Reviewed: 03/24/201619999209-4507 [employer]. [address] [place] [address], [place] [address]. All [facility] reserved. 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 Sh e is being seen today for classic angina, suggesting myocardial ischemia. Patient has been having chest pain/chest pressure while walking for the last six months but was not a concern to her, until her passing in August 2018. Chest pain and shortnes s of breath relieved by rest. She was then seen at [facility] emergency department on 9, for chest pain and shortness of breath on exertion. She was started on metoprolol and not ice the chest pain was resolved a but made her feel like "she is in slow motion". Today, patient is feeling good, since she has not been moving as much lately. Patient is p hysically active by walking at her job at the [employer] snf. There is no chest pain o r [...] Laterality: N/A; Surgeon: Shaji Thornton MD; Location: [facility] MEDICAL PROCEDU RE UNIT CYST [...] is bilateral BKA. She works at the [employer]. She doesn't exerc ise because she [...] August 2018. She was then seen at [facility] emergency department on 11/10/18, for ches t [...] by walking at her job at the [employer]. There is no signs and symptoms of overt congestive heart failure. She is in a class II of [place] [facility] t[facility] functional class. There is [...] secondary azotemia on April 01, 1974 at [facility]. B. She is on prednisone 6 mg and somatropin 5.8 mg. PLAN: 1. I spend time at length talking about natural course, treatment and prognosis of classic angina, suggesting myocardial ischemia. 2. Patient is candidate for left heart catheterization via right radial. The risks and negra efits of the procedure including alternative treatment were discussed with the patient in [facility]. The patient decides to proceed [...] reviewed and edited this note. Kay Mott, Screen Tacker 12/05/2018 I, Benigno Deras MD, personally performed the services described in this documentation, as scribed in my presence and it is both accurate and complete. Kay Mott, Screen Tacker 12/05/2018 8:36 Electronically signed by: Benigno Deras MD [facility] 12/05/2018 Portions of this chart may have been created with [employer] Its [employer] voice recognition software. Occasi onal wrong-word or [...] | 2019 | Visit | | [address] [place] [address] | | | | | | [place] | | | | | | [phone] | | | | | | | | +--------+---------+ + + + | 07/25/ | Office | Cardiology | Renetta, | | | 2020 | Visit | | [address] [address] | | | | | | [place], | | | | | | [place] [address] | | | | | | [phone] | | | | | | | | +--------+---------+ + + + | 09/03/ | Office | Endocrinology | Cheryl Zee MD | | | 2020 | Visit | | [address] | | | | | | [address] [place] | | | | | | [phone] | | | | | | | [...] (1950) | | | OF PROCEDURE: 12/26/2018 TELEPHONE OPERATOR: Benigno Deras MD | | | PROCEDURES [...] projections. Silvana and | | | 3 [facility] diagnostic catheters were used for this procedure. [...] | | | moderate sedation with continuous mnxy-cl-ehfo attendance. My | | | intra-service time [...] 15 | 9 - 23 mg/dL | [facility] | | | | | | [facility] | | | | | | MEDICAL | | | | | | CENTER - | | | | | | LABORATORY | | + + + + + + | Creatinine | 0.89 | 0.55 - 1.02 | [place] | | | | | mg/dL | [facility] | | | | | | MEDICAL | | | | | | CENTER - | | | | | | LABORATORY | | + + + + + + | eGFR, | >60Comment: GLOMERULAR | >=60 | [facility] | | | non- | FILTRATION | mL/min/1.73m2 | [facility] | | | [place] | RATE,ESTIMATED | | MEDICAL | | | | mL/min/1.89l9Duqp than | | CENTER - | | [...] [address] | [place] | [phone] | | [facility] | | [address] | | | - LABORATORY | | [...] | + +---+ + +-------+ +--------+---+---+ | fentaNYL (PF) injection ONCE | Given | 12/27/19 | 50 mcg | | | | PRN, Starting Wed12/26/18 at | | 19 10:46 | | | | | 1042, Intra-op | | AM PDT | | | | + +-------+ +--------+---+---+ +-------+ +--------+---+---+ | Given | 12/27/19 | 50 mcg | | | | | 19 10:42 | | | | | | AM PDT | | | | +-------+ +--------+---+---+ +---+---+ | | | +---+---+ + +-------+ +--------+---+---+ | heparin 1,000 units/mL | Given | 12/27/19 | 4,000 | | | | injection ONCE PRN, Starting Mon | | 10:46 | Units | | | | 12/26/18 at 1046, Intra-op | | AM PDT | | | [...] | | | + +---+ + +-------+ +---------+---+ + | lidocaine buffered 0.9% | Given | 12/27/19 | 0.5 mLs | | Surgical | | injection ONCE PRN, Starting Mon | | 19 10:42 | | | Site | | 12/26/18 at 1042, Intra-op | | AM PDT | | | | + +-------+ +---------+---+ + +---+---+ | | | +---+---+ + +-------+ +--------+---+---+ | midazolam (VERSED) 1 mg/mL | Given | 12/27/19 | 0.5 mg | | | | injection ONCE PRN, Starting Mon | | 19 10:58 | | | | | 12/26/18 at 1041, Intra-op | | AM PDT | | | | + +-------+ +--------+---+---+ +-------+ +--------+---+---+ | Given | 12/27/19 | 0.5 mg | | | | | 19 10:46 | | | | | | AM PDT | | | | +-------+ +--------+---+---+ | Given | 12/27/19 | 1 mg | | | | | 19 10:41 | | | | | | AM PDT | | | | +-------+ +--------+---+---+ +---+---+ | | | +---+---+ + +-------+ +-------+---+---+ | niCARdipine in saline (CARDENE) | Given | 12/27/19 | 4 mLs | | | | 100 mcg/mL syringe ONCE PRN, | | 19 10:53 | | | | | Starting 12/26/18 at 1053, | | AM PDT | | | | | Intra-op | | | | | | + +-------+ +-------+---+---+ + +---+ | | | + +---+ | nitroglycerin (NITROSTAT) SL | | | tablet 0.4 mg 0.4 mg, | | | Sublingual, EVERY 5 MIN PRN, | | | Chest pain, Starting 12/26/18 | | | at 1140, May give up to 3 doses. | | | Notify physician after 2nd dose | | | given. Hold for SBP<100, | | | Post-op/Phase II | | + +---+ | | | + +---+ + +-------+ +---------+---+---+ | nitroglycerin 100 mcg/mL | Given | 12/27/19 | 400 mcg | | | | syringe ONCE PRN, Starting Mon | | 19 10:44 | | | | | 12/26/18 at 1044, Intra-op | | AM PDT | | | | + +-------+ +---------+---+---+ + +---+ | | | + +---+ [...]
--- OUTSIDE RECORDS SUMMARY | ~2020-01-04 | XMS | Encounter Summary ---
Demographics + + + | Address | [address] | | | [place] [address] | + + + | Home Phone | | + + + | Preferred Language | Unknown | + + + | Marital Status | | + + + | Orthodoxy Affiliation | 1027 | + + + | Race | Unknown | + + + | Ethnic Group | Unknown | + + + Author + + + | Author | [facility] | | | and [place] | [...] [place], | | | | | [place] [address] | | + + + + + | Ryan Vogt | ECON | Unknown | | + + + + + | Rob Vogt | ECON | Unknown | | + + + + + Care Team Providers + +------+ + | Care Supervisor Advice Name | Role | Phone | + +------+ + PCP | Unavailable | + +------+ + Encounter Details +--------+ + + + + | Date | Type | Department | Care Team | Description | +--------+ + + + + | 03/14/ | Hospital | [facility] | Ifeanyi oRmo, | | | 2006 | Encounter | MED CTR XRAY [address] | [address] | | | | | [place] | [place] | | | | | [place] [address] | [address] | | | | | [phone] | | | +--------+ + + + [...] | | 2019 | Visit | | [facility] [place] | | | | | | [place] | | | | | | [address] | | | | | | | | +--------+---------+ + + + | 07/25/ | Office | Cardiology | Renetta, | | | 2020 | Visit | | [facility] [address] | | | | | | [place], | | | | | | [place] [address] | | | | | | [phone] | | | | | | | | +--------+---------+ + + + | 09/03/ | Office | Endocrinology | Cheryl Zee MD | | | 2020 | Visit | | [address] | | | | | | [address] [place] | | | | | | [address] | | | | | | | | +--------+---------+ + + + documented as of this encounter Visit Diagnoses Not on filedocumented in this encounter"
--- OUTSIDE RECORDS SUMMARY | ~2020-01-04 | XMS | Encounter Summary ---
Demographics + + + | Address | [address] | | | [place] [address] | + + + | Home Phone [...] | Author | [facility] | | | and [...] [place], | | | | | [place] [address] | | + + + + + | Ryan Vogt | ECON | Unknown | | + + + + + | Rob Vogt | ECON | Unknown | | + + + + + Care Team Providers + +------+ + | Care Steam Generating Powerplant Mechanic Name | Role | Phone | + +------+ + PCP | Unavailable | + +------+ + Encounter Details +--------+ + + + + | Date | Type | Department | Care Team | Description | +--------+ + + + + | 02/22/ | Hospital | [facility] | Ifeanyi Romo, | | | 2007 | Encounter | MED CTR XRAY [address] | [address] | | | | | [place] | [place] | | | | | [place] [address] | [address] | | | | | [phone] | | | +--------+ + + + [...] | | 2019 | Visit | | [facility] [place] | | | | | | [place] | | | | | | [address] | | | | | | | | +--------+---------+ + + + | 07/25/ | Office | Cardiology | Renetta, | | | 2020 | Visit | | [address] [address] | | | | | | [place], | | | | | | [place] [address] | | | | | | [phone] | | | | | | | | +--------+---------+ + + + | 09/03/ | Office | Endocrinology | Cheryl Zee MD | | | 2020 | Visit | | [address] | | | | | | [address] [place] | | | | | | [address] | | | | | | | | +--------+---------+ + + + documented as of this encounter Visit Diagnoses Not on filedocumented in this encounter"
--- OUTSIDE RECORDS SUMMARY | ~2020-01-04 | XMS | Encounter Summary ---
Demographics + + + | Address | [address] | | | [place] [address] | + + + | Home Phone [...] | Author | [facility] | | | [...] [place], | | | | | [place] [address] | | + + + + + | Ryan Vogt | ECON | Unknown | | + + + + + | Rob Vogt | ECON | Unknown | | + + + + + Care Team Providers + +------+ + | Care Animal Nutrition Consultant Name | Role | Phone | + +------+ + | Abrahan Samaniego MD | PCP | | + +------+ + Encounter Details +--------+ + + + + | Date | Type | Department | Care Team | Description | +--------+ + + + + | 09/28/ | Abstract | [facility] | Abrahan Samaniego MD | Preventative health | | 2014 | | [address] | [address] [place] [address] | care (Primary Dx) | | | | [place], | [place] | | | | | [place] [address] | [address] | | | | | [phone] | | | +--------+ + + + [...] | | | | | | [place] [address] | | | | | | [phone] | | | | | | | | +--------+---------+ + + + | 09/03/ | Office | Endocrinology | Cheryl Zee MD | | | 2020 | Visit | | [address] | | | | | | [address] [place] | | | | | | [address] | | | | | | | | +--------+---------+ + + + documented as of this encounter Visit Diagnoses + + | Diagnosis | + + | Preventative health care - Primary Routine general medical examination at a [place] | | care facility | + + documented in this encounter"
--- OUTSIDE RECORDS SUMMARY | ~2020-01-04 | XMS | Encounter Summary ---
Demographics + + + | Address | [address] | | | [place] [address] | + + + | Home Phone | | + + + | Preferred Language | Unknown | + + + | Marital Status | | + + + | Yazidism Affiliation | 1027 | + + + | Race | Unknown | + + + | Ethnic Group | Unknown | + + + Author + + + | Author | [facility] | | | and [place] | + + + | Organization | [facility] | | [...] [place], | | | | | [place] [address] | | + + + + + | Ryan Vogt | ECON | Unknown | | + + + + + | Rob Vogt | ECON | Unknown | | + + + + + Care Team Providers + +------+ + | Care Cheesemaker Helper Name | Role | Phone | + +------+ + | Abrahan Samaniego MD | PCP | | + +------+ + Reason for Visit +---------+--------+ + | Reason | Onset | Comments | | | Date | | +---------+--------+ + | Malaise | 11/11/ | | | | 2020 | | +---------+--------+ + Encounter Details +--------+ + + + + | Date | Type | Department | Care Team | Description | +--------+ + + + + | 11/11/ | Telephone | [facility] | Yung Song MD | Malaise | | 2019 | | MEDICINE [address] | [address] [facility] | | | | | [place], | [place] | | | | | [place] [address] | [address] | | | | | [phone] | | | +--------+ + + + [...] this encounter Miscellaneous Notes Telephone Encounter - Willam, Ayana Puga RN - 11/13/2019 8:11 AM PDTPatient scheduled for today at 1 pm. elephone Encounter - Abrahan Samaniego MD - 11/13/2019 8:05 AM PDT1 PM appt todayElectron elyse signed by Abrahan Samaniego MD at 11/13/2019 8:05 AM PDTTelephone Encounter - Jed Song MD - 11/12/2019 8:57 PM PDTPhone call from patient, for a few days she has felt gene rally weak. Symptoms are similar to when she had adrenal crisis in the past. She has taken hydration fluids by mouth today with no nausea or emesis. She denies fever, d ysuria, cough, abdominal pain, emesis or diarrhea. She does not have a current BP reading, d enies lightheadedness. Usual prednisone dose 6 mg daily for panhypopituitarism. Advised continuing oral hydration, take additional 3 mg prednisone tonight, and check in with Dr. Samaniego tomorrow. documented in this enc ounter Plan of Treatment +--------+---------+ + + + | Date | Type | Specialty | Care Team | Description | +--------+---------+ + + + | 04/29/ | Office | Internal Medicine | Abrahan Samaniego MD | | | 2019 | Visit | | [place] | | | | | | [place] | | | | | | [address] | | | | | | | | +--------+---------+ + + + | 07/25/ | Office | Cardiology | Renetta, | | | 2020 | Visit | | [facility] [address] | | | | | | [place] | | | | | | [place] [address] | | | | | | [phone] | | | | | | | | +--------+---------+ + + + | 09/03/ | Office | Endocrinology | Cheryl Zee MD | | | 2020 | Visit | | [address] | | | | | | [address] [place] | | | | | | [phone] | | | | | | | | +--------+---------+ + + + documented as of this encounter Visit Diagnoses + + | Diagnosis | + + | Panhypopituitarism (HCC) - Primary Panhypopituitarism | + + documented in this encounter"
--- OUTSIDE RECORDS SUMMARY | ~2020-01-04 | XMS | Encounter Summary ---
Demographics + + + | Address | [address] | | | [place] [address] | + + + | Home Phone [...] Author | [facility] | | | [...] [place], | | | | | [place] [address] | | + + + + + | Ryan Vogt | ECON | Unknown | | + + + + + | Rob Vogt | ECON | Unknown | | + + + + + Care Team Providers + +------+ + | Care Pit Steward Name | Role | Phone | + +------+ + | Abrahan Samaniego MD | PCP | | + +------+ + Reason for Visit + +--------+ + | Reason | Onset | Comments | | | Date | | + +--------+ + | Medication Prior | 05/05/ | Dexilant | | Authorization | 2011 | | + +--------+ + Encounter Details +--------+ + + + + | Date | Type | Department | Care Team | Description | +--------+ + + + + | 05/05/ | Telephone | [facility] | Bernadette Aly RN | Medication Prior | | 2011 | | MEDICINE [address] | | Authorization | | | | [place], | | (Dexilant) | | | | [place] [address] | | | | | | [phone] | | | +--------+ + + + [...] Telephone Encounter - Abrahan Samaniego MD - 05/05/2012 6:11 PM PSTok elephone Encounter - Bernadette Aly RN - 1 07/05/2011 4:26 PM PSTMessage copied by BERNADETTE ALY on WedMay 05, 2012 1626 ------ Message from: DIGNA GOMEZ Created: WedApr 21, 2012 0952 Regarding: RE: PA Request Not a covered benefit - must pay out of pocket ----- Message ----- From: Bernadette Aly RN Sent: 04/20/2012 13:24 To: Digna Gomez Subject: PA Request Pharmacy Name:= [facility] Insurance Name = [employer] Insurance Tele # = Insurance ID # = [id number] Medication = DEXILANT DR 60MG CAPSULE Directions = Take one capsule daily Other medications tried= None Diagnosis:Shortness of breath / Bloating Symptoms were unable to breath easy. She was so bloated she had constant shortness of breath. The Dexilant has really helped. She is not bloated and Shortness of breath is gone. documented in thi s encounter Plan of Treatment +--------+---------+ + + + | Date | Type | Specialty | Care Team | Description | +--------+---------+ + + + | 04/29/ | Office | Internal Medicine | Abrahan Samaniego MD | | | 2019 | Visit | | [place] | | | | | | [place] | | | | | | [address] | | | | | | | | +--------+---------+ + + + | 07/25/ | Office | Cardiology | Renetta, | | | 2020 | Visit | | [facility] | | | | | | [place] | | | | | | [place] [address] | | | | | | [phone] | | | | | | | | +--------+---------+ + + + | 09/03/ | Office | Endocrinology | Cheryl Zee MD | | | 2020 | Visit | | [address] | | | | | | [address] [place] | | | | | | [phone] | | | | | | | | +--------+---------+ + + + documented as of this encounter Visit Diagnoses Not on filedocumented in this encounter"
--- OUTSIDE RECORDS SUMMARY | ~2020-01-04 | XMS | Encounter Summary ---
Demographics + + + | Address | [address] | | | [place] [address] | + + + | Home Phone [...] + | Author | [facility] | | | and [place] [...] [place], | | | | | [place] [address] | | + + + + + | Ryan Vogt | ECON | Unknown | | + + + + + | Rob Vogt | ECON | Unknown | | + + + + + Care Team Providers + +------+ + | Care Utilities And Maintenance Supervisor Name | Role | Phone | + +------+ + | Abrahan Samaniego MD | PCP | | + +------+ + Reason for Visit + +--------+ + | Reason | Onset | Comments | | | Date | | + +--------+ + | Diagnostic Order | 03/19/ | | | | 2013 | | + +--------+ + Encounter Details +--------+ + + + + | Date | Type | Department | Care Team | Description | +--------+ + + + + | 03/19/ | Telephone | [facility] | Abrahan Samaniego MD | Diagnostic Order | | 2013 | | [address] | [address] [place] [address] | | | | | [place], | [place] | | | | | [place] [address] | [address] | | | | | [phone] | | | +--------+ + + + [...] Telephone Encounter - Christina Wilson LPN - 03/19/2014 1:51 PM PDTPatient notified.Electr onically signed by Christina Wilson LPN at 03/19/2014 1:52 PM PDTTelephone Encounter - Christina Wilson LPN - 03/19/2014 9:40 AM PDTScheduled for AAA ultrasound on 03-22-14 @ 0900 (check-in @ 0830). Left message for patient to call. documented in this encounter Plan of Treatment +--------+---------+ + + + | Date | Type | Specialty | Care Team | Description | +--------+---------+ + + + | 04/29/ | Office | Internal Medicine | Abrahan Samaniego MD | | | 2019 | Visit | | [address] [facility] | | | | | | [place] | | | | | | [address] | | | | | | | | +--------+---------+ + + + | 07/25/ | Office | Cardiology | Renetta, | | | 2020 | Visit | | [facility] [address] | | | | | | [place], | | | | | | [place] [address] | | | | | | [phone] | | | | | | | | +--------+---------+ + + + | 09/03/ | Office | Endocrinology | Cheryl Zee MD | | | 2020 | Visit | | [address] [place] | | | | | | [address] [place] | | | | | | [address] | | | | | | | | +--------+---------+ + + + documented as of this encounter Visit Diagnoses Not on filedocumented in this encounter"
--- OUTSIDE RECORDS SUMMARY | ~2020-01-04 | XMS | Encounter Summary ---
Demographics + + + | Address | [address] | | | [place] [address] | + + + | Home Phone [...] + | Author | [facility] | | [...] [place], | | | | | [place] [address] | | + + + + + | Ryan Vogt | ECON | Unknown | | + + + + + | Rob Vogt | ECON | Unknown | | + + + + + Care Team Providers + +------+ + | Care Digital Marketing Lead Name | Role | Phone | [...] | Abrahan Cortez MD | [address] | | | | | Procedures | [address] | [place], | | | | | MRI Brain w | STREET | [place] | | | | | wo Contrast | [place], | [address] | | | | | | [place] [address] | Phone: | | | | | | Phone: | [phone] | | | | | | [phone] | Fax: | | | | | | Fax: | [phone] | | | | | | [phone] | | +--------+--------+ + + + + Encounter Details +--------+ + + + + | Date | Type | Department | Care Team | Description | +--------+ + + + + | 10/25/ | Hospital | [facility] | Abrahan Samaniego MD | Diplopia | | 2012 | Encounter | MED CTR XRAY [address] | [address] [facility] | | | | | [place] | [place], [place] | | | | | [place] [address] | [address] | | | | | [phone] | | | +--------+ + + + [...] [place] | | | | | | [address] | | | | | | | | +--------+---------+ + + + | 07/25/ | Office | Cardiology | Renetta, | | | 2020 | Visit | | [facility] [address] | | | | | | [place] | | | | | | [place] [address] | | | | | | [phone] | | | | | | | | +--------+---------+ + + + | 09/03/ | Office | Endocrinology | Cheryl Zee MD | | | 2020 | Visit | | [address] | | | | | | [address] [place] | | | | | | [id number] | | | | | | | | +--------+---------+ + + + documented as of this encounter Procedures + +--------+ + + + | Procedure Name | Priori | Date/Time | Associated Diagnosis | Comments | | | ty | | | | + +--------+ + + + | MRI BRAIN W WO | STAT | 10/25/2012 | Diplopia | Results for this | | CONTRAST | | 3:56 PM | | procedure are in the | | | | PDT | | results section. | + +--------+ + + + documented in this encounter Results MRI Brain w wo Contrast (10/25/2012 3:56 PM PDT) + + | Specimen | + + | | + + + + + | Narrative | Performed At | + + + | [facility] Diagnostic [facility] | [place] | | Department [address] [facility] [place] | [facility] | | [ rep ct [address]] [ rep ct [facility] | | st zip] Signed | - IMAGING | | | | | Patient Name: MONA VOGT Physician: | | | PAOLA.01 : 1950 Age: 62 Sex: F Unit #: [id number] | | | Exam Date: 10/25/12 [place] [facility] | | | Report #: [id number] Page: | | | %(RAD)RES..mtdd.print.filter("pg") of %(RAD) | | | RES..mtdd.print.filter("tpg") | | | | | | Accession Number: [id number] | | | MRI BRAIN EXTENDED, WITH [...] | | FRONTAL BONE, PROGRESSED COMPARED WITH 2010. RECOMMEND SKULL | | | X-RAY WITH STANDARD AND TANGENTIAL VIEWS. LEFT MAXILLARY SINUS | | | DISEASE. NO EVIDENCE OF ABNORMALITY OF THE ORBITS. | | | <<Signature on File>> | | | [place] | | | David Kelley MD10/26/12900 <Electronically signed by Linden Kelley MD> Linden Kelley MD 10/25/12 1556 | | | Manager Contact: Rajni Mar10/26/12 0829 Abrahan | | | Diego Samaniego MD | | + + + + + + + + | Performing | Address | City/State/Zipcode | Phone Number | | Organization | | | | + + + + + | [facility] | [address] | [place] | [phone] | | [facility] | | [address] | | | - IMAGING | | | | + + + + + documented in this encounter Visit Diagnoses + + | Diagnosis | + + | Diplopia | + + documented in this encounter
--- OUTSIDE RECORDS SUMMARY | ~2020-01-04 | XMS | Encounter Summary ---
Demographics + + + | Address | [address] | | | [place] [address] | + + + | Home Phone [...] Author | [facility] [place] | | | and [...] [place], | | | | | [place] [address] | | + + + + + | Ryan Vogt | ECON | Unknown | | + + + + + | Rob Vogt | ECON | Unknown | | + + + + + Care Team Providers + +------+ + | Care Parole Agent Name | Role | Phone | + +------+ + | Abrahan Samaniego MD | PCP | | + +------+ + Reason for Visit +--------+--------+ + | Reason | Onset | Comments | | | Date | | +--------+--------+ + | Other | 01/03/ | [facility]mnitrop to specialty pharmacy | | | 2019 | | +--------+--------+ + Encounter Details +--------+ + + + + | Date | Type | Department | Care Team | Description | +--------+ + + + + | 01/03/ | Telephone | [facility] | Cheryl Zee MD | Other (Omnitrop to | | 2019 | | [place] | [address] [place] | specialty pharmacy) | | | | ENDOCRINOLOGY [address] | [address] [place] | | | | | [address] [place] [address] | [address] | | | | | [place] | | | | | | [address] | | | | | | [phone] | | | +--------+ + + + [...] this encounter Miscellaneous Notes Telephone Encounter - Sasha Patino - 01/04/2020 2:01 PM PDT Milagros is calling about medication. Okay to leave detailed message: Yes Medication name: Omnitrop Refill: No Pharmacy: Send to specialty Comment: Omnitrop needs, per insurance, to go through a specialty pharmacy. Mychart: ACTIVATED PCP: Abrahan Samaniego MD Future Appointments: Future Appointments Date Time Provider Department [place] 04/29/2020 1:30 PM Abrahan Samaniego MD [facility] 07/25/2020 1:30 PM Kimberly Jackson [facility] 09/03/2020 11:50 AM Cheryl Zee MD [facility] None documented in this en counter Plan of [...] [place] | | | | | | [address] | | | | | | | | +--------+---------+ + + + | 07/25/ | Office | Cardiology | Renetta, | | | 2020 | Visit | | [facility] [address] | | | | | | [place], | | | | | | [place] [address] | | | | | | [phone] | | | | | | | | +--------+---------+ + + + | 09/03/ | Office | Endocrinology | Cheryl Zee MD | | | 2020 | Visit | | [address] | | | | | | [address] [place] | | | | | | [id number] | | | | | | | [...]
--- OUTSIDE RECORDS SUMMARY | ~2020-01-04 | XMS | Encounter Summary ---
Demographics + + + | Address | [address] | | | [place] [address] | + + + | Home Phone [...] + | Author | [facility] [place] | | | and [place] | [...] [place], | | | | | [place] [address] | | + + + + + | Ryan Vogt | ECON | Unknown | | + + + + + | Rob Vogt | ECON | Unknown | | + + + + + Care Team Providers + +------+ + | Care Hybrid Tester Name | Role | Phone | + +------+ + | Abrahan Samaniego MD | PCP | | + +------+ + Reason for Visit + +--------+ + | Reason | Onset | Comments | | | Date | | + +--------+ + | Chest Pain | 11/10/ | chest tightness | | | 2018 | | + +--------+ + Encounter Details +--------+ + + + + | Date | Type | Department | Care Team | Description | +--------+ + + + + | 11/10/ | Telephone | [facility] | Abrahan Samaniego MD | Chest Pain (chest | | 2018 | | MEDICINE [address] | [address] [place] [address] | tightness) | | | | [place], | [place] | | | | | [place] [address] | [address] | | | | | [phone] | | | +--------+ + + + [...] Encounter - Christina Wilson LPN - 11/10/2018 9:13 AM PDTPatient states for appr ox the last 2 weeks she has been experiencing a heaviness in her left chest. Says she walks to work daily and has to slow down the further she walks - says it can cause SOB - no radiat ion of pain and no diaphoresis. Advised evaluation in ER today as no openings available.Elec tronically signed by Christina Wilson LPN at 11/10/2018 9:16 AM PDTTelephone Encounter - Marla Garcia - 11/10/2018 9:10 AM PDTPatient called states she feels tightness on he r chest wile walking or doing stairs. Patient was connected to triage nurse to further chris t. documented in th is encounter Plan of Treatment +--------+---------+ + + + | Date | Type | Specialty | Care Team | Description | +--------+---------+ + + + | 04/29/ | Office | Internal Medicine | Abrahan Samaniego MD | | | 2019 | Visit | | [address] | | | | | | [place] | | | | | | [address] | | | | | | | | +--------+---------+ + + + | 07/25/ | Office | Cardiology | Renetta, | | | 2020 | Visit | | [facility] [address] | | | | | | [place] | | | | | | [place] [address] | | | | | | [phone] | | | | | | | | +--------+---------+ + + + | 09/03/ | Office | Endocrinology | Cheryl Zee MD | | | 2020 | Visit | | [address] | | | | | | [address] [place] | | | | | | [address] | | | | | | | | +--------+---------+ + + + documented as of this encounter Visit Diagnoses Not on filedocumented in this encounter"
--- OUTSIDE RECORDS SUMMARY | ~2020-01-04 | XMS | Encounter Summary ---
Demographics + + + | Address | [address] | | | [place] [address] | + + + | Home Phone [...] + | Author | [facility] | | | and [place] | + + + | Organization | [facility] | | | and [place] | + [...] [place], | | | | | [place] [address] | | + + + + + | Ryan Vogt | ECON | Unknown | | + + + + + | Rob Vogt | ECON | Unknown | | + + + + + Care Team Providers + +------+ + | Care Rental Sales Associate Name | Role | Phone | + +------+ + | Abrahan Samaniego MD | PCP | | + +------+ + Encounter Details +--------+ + + + + | Date | Type | Department | Care Team | Description | +--------+ + + + + | 08/23/ | Hospital | [facility] | Eugene Watkins | Right knee pain, | | 2019 | Encounter | MED CTR [address] XRAY | MD Fady [address] [facility] | unspecified | | | | [address] | [place] | chronicity | | | | [place] | [id number] | | | | | [address] | | | | | | [phone] | | | +--------+ + + + [...] tablet by | 90 | 2 | 05/30/20 | | | (LIPITOR) 10 mg | mouth AT NIGHT | tablet | | 18 | 9 | | tablet | | | | | | + + + +---------+ + + | | Take by mouth. | | 0 | | | | Dhifwbz-Oldvnwfnk-Bt | | | | | 9 | [...] [place] | | | | | | [address] | | | | | | | | +--------+---------+ + + + | 07/25/ | Office | Cardiology | Renetta, | | | 2020 | Visit | | [facility] [address] | | | | | | [place] | | | | | | [place] [address] | | | | | | [phone] | | | | | | | [...] + +--------+ + + + | XR KNEE RIGHT 4 + VW | Routin | 08/23/2018 | Right knee pain, | Results for this | | | e | 1:40 PM | unspecified | procedure are in the | | | | PDT | chronicity | results section. | + +--------+ + + + documented in this encounter Results XR Knee Right 4 [...]
--- OUTSIDE RECORDS SUMMARY | ~2020-01-04 | XMS | Encounter Summary ---
Demographics + + + | Address | [address] | | | [place] [address] | + + + | Home Phone [...] + | Author | [facility] | | [...] [place], | | | | | [place] [address] | | + + + + + | Ryan Vogt | ECON | Unknown | | + + + + + | Rob Vogt | ECON | Unknown | | + + + + + Care Team Providers + +------+ + | Care A P Supervisor Name | Role | Phone | + +------+ + | Abrahan Samaniego MD | PCP | | + +------+ + Encounter Details +--------+ + + + + | Date | Type | Department | Care Team | Description | +--------+ + + + + | 08/18/ | Hospital | [facility] | Cheryl Zee MD | Hypothyroidism | | 2015 | Encounter | MED CTR LABORATORY | [address] [facility] | | | | | [address] [place] | [address] [place] [place] | | | | | [place] | [id number] | | | | | [address] | | | | | | [phone] | | | +--------+ + + + [...] | 2020 | Visit | | [address] [facility] | | | | | | [place] | | | | | | [address] | | | | | | | | +--------+---------+ + + + | 07/25/ | Office | Cardiology | Renetta, | | | 2020 | Visit | | [facility] [address] | | | | | | [address] [place] [place], | | | | | | [place] [address] | | | | | | [phone] | | | | | | | | +--------+---------+ + + + | 09/03/ | Office | Endocrinology | Cheryl Zee MD | | | 2020 | Visit | | [address] | | | | | | [address] [place] | | | | | | [phone] | | | | | | | | +--------+---------+ + + + documented as of this encounter Procedures + +--------+ + + + | Procedure Name | Priori | Date/Time | Associated Diagnosis | Comments | | | ty | | | | + +--------+ + + + | CBC WITH | Routin | 08/18/2014 | Hypothyroidism | Results for this | | DIFFERENTIAL | e | 8:49 AM | | procedure are in the | | | | PDT | | results section. | + +--------+ + + + | TSH | Routin | 08/18/2014 | Hypothyroidism | Results for this | | | e | 8:49 AM | | procedure are in the | | | | PDT | | results section. | + +--------+ + + + | T4, FREE | Routin | 08/18/2014 | Hypothyroidism | Results for this | | | e | 8:49 AM | | procedure are in the | | | | PDT | | results section. | + +--------+ + + + | CHOLESTEROL, HDL | Routin | 08/18/2014 | Hypothyroidism | Results for this | | | e | 8:49 AM | | procedure are in the | | | | PDT | | results section. | + +--------+ + + + | COMPREHENSIVE | Routin | 08/18/2014 | Hypothyroidism | Results for this | | METABOLIC PANEL | e | 8:49 AM | | procedure are in the | | | | PDT | | results section. | + +--------+ + + + | IGF BINDING PROTEIN | Routin | 08/18/2014 | Hypothyroidism | Results for this | | 1 | e | 8:48 AM | | procedure are in the | | | | PDT | | results section. | + +--------+ + + + | PROLACTIN | Routin | 08/18/2014 | Hypothyroidism | Results for this | | | e | 8:48 AM | | procedure are in the | | | | PDT | | results section. | + +--------+ + + + documented in this encounter Results CBC with Differential (08/18/2014 8:49 AM PDT) + + + + + + | Component | Value | Ref Range | Performed | Pathologist | | | | | At | Signature | + + + + + + | White Blood | 5.2 | 4.0 - 11.0 K/uL | [facility] | | | Cells | | | [facility] | | | | | | MEDICAL | | | | | | CENTER - | | | | | | LABORATORY | | + + + + + + | Red Blood | 4.84 | 3.70 - 5.20 | [facility] | | | Cells | | M/uL | [facility] | | | | | | MEDICAL | | | | | | CENTER - | | | | | | LABORATORY | | + + + + + + | Hemoglobin | 14.6 | 11.5 - 16.0 | [facility] | | | | | g/dL | [facility] | | | | | | MEDICAL | | | | | | CENTER - | | | | | | LABORATORY | | + + + + + + | Hematocrit | 43.6 | 34.0 - 47.0 % | [facility] | | | | | | [facility] | | | | | | MEDICAL | | | | | | CENTER - | | | | | | LABORATORY | | + + + + + + | MCV | 90.0 | 83.0 - 101.0 fL | [facility] [...] + + + + | MCHC | 33.4 | 32.0 - 36.0 | [facility] | | | | | g/dL | [facility] | | | | | | MEDICAL | | | | | | CENTER - | | | | | | LABORATORY | | + + + + + + | RDW-CV | 13.2 | <15.0 % | [facility] | | | | | | [facility] | | | | | | MEDICAL | | | | | | CENTER - | | | | | | LABORATORY | | + + + + + + | Platelet | 267 | 140 - 440 K/uL | [facility] | | | Count | | | [facility] | | | | | | MEDICAL | | | | | | CENTER - | | | | | | LABORATORY | | + + + + + + | MPV | 8.8 | fL | [facility] | | | | | | [facility] | | | | | | MEDICAL | | | | | | CENTER - | | | | | | LABORATORY | | + + + + + + | % | 36.9 (L) | 45.0 - 82.0 % | [facility] | | | Neutrophils | | | [facility] | | | | | | MEDICAL | | | | | | CENTER - | | | | | | LABORATORY | | + + + + + + | % | 50.3 (H) | 20.0 - 45.0 % | [facility] | | | Lymphocytes | | | [facility] | | | | | | MEDICAL | | | | | | CENTER - | | | | | | LABORATORY | | + + + + + + | % Monocytes | 10.5 | 4.0 - 12.0 % | [facility] | | | | | | [facility] | | | | | | MEDICAL | | | | | | CENTER - | | | | | | LABORATORY | | + + + + + + | % | 1.7 | 0.0 - 5.0 % | [facility] | | | Eosinophils | | | [facility] | | | | | | MEDICAL | | | | | | CENTER - | | | | | | LABORATORY | | + + + + + + | % Basophils | 0.6 | 0.0 - 1.0 % | [facility] | | | | | | [facility] | | | | | | MEDICAL | | | | | | CENTER - | | | | | | LABORATORY | | + + + + + + | Absolute | 1.90 | 1.80 - 8.50 | [facility] | | | Neutrophils | | K/uL | [facility] | | | | | | MEDICAL | | | | | | CENTER - | | | | | | LABORATORY | | + + + + + + | Absolute | 2.60 | 0.60 - 3.20 | [facility] | [...] | Monocytes | | K/uL | [facility] | | | | | | MEDICAL | | | | | | CENTER - | | | | | | LABORATORY | | + + + + + + | Absolute | 0.10 [...] + | [facility] | [address] | [place] | [phone] | | [facility] | | [address] | | | - LABORATORY | | | | + + + + + | [facility] | [address] | [place], [place] | | | [facility] | | [address] | | | - LABORATORY | | | | + + + + + TSH (08/18/2014 8:49 AM PDT) + + + + + + | Component | Value | Ref Range | Performed | Pathologist | | | | | At | Signature | + + + + + + | TSH | 0.04 (L)Comment: All TSH | 0.34 - 5.60 | [facility] | | | | samples are screened | uIU/mL | [facility] | | | | using a 2nd Generation | | MEDICAL | | | | test, and are reflexed | | CENTER - | | | | to a 3rd Generation test | | LABORATORY | | | | if indicated. | | | | + + + + + + + + | Specimen | + + | Blood | + + + + + + + | Performing | Address | City/State/Zipcode | Phone Number | | Organization | | | | + + + + + | [facility] | [address] | [place] | [phone] | [facility] | | [address] | | | - LABORATORY | | | | + + + + + | [facility] | [address] | [place] | | | [facility] | | [address], [facility] | | | - LABORATORY | | | | + + + + + T4, Free (08/18/2014 8:49 AM PDT) + +-------+ + + + | Component | Value | Ref Range | Performed | Pathologist | | | | | At | Signature | + +-------+ + + + | FT4 | 1.0 | 0.6 - 1.1 ng/dL | [facility] | | | | | | [facility] [...] + | [facility] | [address] | [place], [place] | [phone] | | [facility] | | [address] | | | - LABORATORY | | | | + + + + + | [facility] | [address] | [place], [place] | | | [facility] | | [address], [facility] | | | - LABORATORY | | | | + + + + + Comprehensive Metabolic Panel (08/18/2014 8:49 AM PDT) + + + + + [...] K | 3.6 | 3.5 - 5.1 | [facility] | [...] + + + + | Glucose | 79 | 70 - 109 mg/dL | [facility] [...] | 0.97 | 0.60 - 1.30 | [facility] | | | | | mg/dL | [facility] | | | | | | MEDICAL | | | | | | CENTER - | | | | | | LABORATORY | | + + + + + + | eGFR, | 58 (L)Comment: | >=60 | [facility] | | | non- | GLOMERULAR FILTRATION | mL/min/1.73m2 | [facility] | | | [place] | RATE,ESTIMATED | | MEDICAL | | | | mL/min/1.80w2Ctig than | | CENTER - | | [...] + + + + | Calcium | 9.0 | 8.3 - 10.5 | [facility] | | | | | mg/dL | [facility] | | | | | | MEDICAL | | | | | | CENTER - | | | | | | LABORATORY | | + + + + + + | Albumin | 3.6 | 3.2 - 5.0 g/dL | [facility] [...] + + + | Total | 5.9 (L) | 6.0 - 7.8 g/dL | [facility] | | | Protein | | | [facility] | | | | | | MEDICAL | | | | | | CENTER - | | | | | | LABORATORY | | + + + + + + | AST | 15 | 10 - 42 U/L | [facility] | | | | | | [facility] | | | | | | MEDICAL | | | | | | CENTER - | | | | | | LABORATORY | | + + + + + + | ALT | 15 | 6 - 45 U/L | [facility] | | | | | | [facility] | | | | | | MEDICAL | | | | | | CENTER - | | | | | | LABORATORY | | + + + + + + | Alkaline | 64 | 40 - 110 U/L | [facility] | | | Phosphatase | | | [facility] | | | | | | MEDICAL | | | | | | CENTER - | | | | | | LABORATORY | | + + + + + + | Globulin | 2.3 | g/dL | [facility] | | | | | | [facility] | | | | | | MEDICAL | | | | | | CENTER - | | | | | | LABORATORY | | + + + + + + | Albumin/Rachel | 1.6 | | [facility] | | | bulin Ratio | | | [facility] | | | | | | MEDICAL | | | | | | CENTER - | | | | | | LABORATORY | | + + + + + + | BUN/Creatin | 18.6 | | [facility] | | | ine [...] + | [facility] | [address] | [place], [place] | [phone] | | [facility] | | [address] | | | - LABORATORY | | | | + + + + + | [facility] | [address] | [place], [place] | | | [facility] | | [address], [facility] | | | - LABORATORY | | | | + + + + + Cholesterol, HDL (08/18/2014 8:49 AM PDT) + +-------+ + + + | Component | Value | Ref Range | Performed | Pathologist | | | | | At | Signature | + +-------+ + + + | HDL | 51 | 29 - 89 mg/dL | [facility] | | | | | | [facility] [address] | [place] | [phone] | | [facility] | | [address] | | | - LABORATORY | | | | + + + + + | [facility] | [address] | [place] | | | [facility] | | [address], [facility] | | | - LABORATORY | | | | + + + + + IGF Binding Protein 1 (08/18/2014 8:48 AM PDT) + + + + + + | Component | Value | Ref Range | Performed | Pathologist | | | | | At | Signature | + + + + + + | IGF Binding | <5 (L)Comment: The limit | 5 - 34 ng/mL | [facility] | | | Protein 1 | of detection of this | | [facility] | | | | assay is 5 ng/mL. A | | | | | | proportion ofnormal | | | | | | patients will have | | | | | | results less than 5 | | | | | | ng/mL.This test was | | | | | | developed and its | | | | | | performance | | | | | | characteristics have | | | | | | beendetermined by [facility] | | | | | | [facility] | | | | | | Michael Sunshine | | | | | | [place]. | | | | | | Performance | | | | | | characteristics refer to | | | | | | the | | | | | | analyticalperformance of | | | | | | the test.Testing | | | | | | Performed: [facility] | | | | | | [facility] | | | | | | [facility], [id number] | | | | | | [address] | | | | | | [place] | | | | | | [address] | | | | + + + + + + + + | Specimen | + + | Blood specimen | | (specimen) | + + + + + + + | Performing | Address | City/State/Zipcode | Phone Number | | Organization | | | | + + + + + | [facility] | [address] | [place] [address] | [phone] | + + + + + Prolactin (08/18/2014 8:48 AM PDT) + + + + + + | Component | Value | Ref Range | Performed | Pathologist | | | | | At | Signature | + + + + + + | Prolactin | 1.6Comment: Reference | 1.4 - 24.2 | [facility] | | | | range applies only to | ng/mL | [facility] | | | | non | | | | | | females.Testing | | | | | | Performed: [facility], [address] | | | | | [address], [place] | | | | | | [address] | | | | + + + [...] [address] | [place] [address] | [phone] | + + + + + documented in this encounter Visit Diagnoses + + | Diagnosis | + + | Hypothyroidism Unspecified hypothyroidism | + + documented in this encounter"
--- OUTSIDE RECORDS SUMMARY | ~2020-01-04 | XMS | Encounter Summary ---
Demographics + + + | Address | [address] | | | [place] [address] | + + + | Home Phone [...] + | Author | [facility] | | | and [place] [...] [place], | | | | | [place] [address] | | + + + + + | Ryan Vogt | ECON | Unknown | | + + + + + | oRb Vogt | ECON | Unknown | | + + + + + Care Team Providers + +------+ + | Care Production Pattern Maker Name | Role | Phone | + +------+ + | Abrahan Samaniego MD | PCP | | + +------+ + Reason for Visit + +--------+ + | Reason | Onset | Comments | | | Date | | + +--------+ + | Paperwork | 12/23/ | DOC Shared Leave Medical Certificate | | | 2018 | | + +--------+ + Encounter Details +--------+ + + + + | Date | Type | Department | Care Team | Description | +--------+ + + + + | 12/23/ | Telephone | [facility] | Abrahan Samaniego MD | Paperwork (DOC | | 2019 | | MEDICINE [address] [place] [address] | [address] [place] [address] | Shared Leave Medical | | | | [place], | [place] | Certificate) | | | | [place] [address] | [address] | | | | | [phone] | | | +--------+ + + + [...] Notes Telephone Encounter - Irma Acosta - 12/27/2018 11:17 AM PDTPatient picked upElectro nically signed by Irma Acosta at 12/27/2018 11:17 AM PDTTelephone Encounter - Irma Acosta - 12/26/2018 8:21 AM PDTCalled lvm letting patient know form is complete. Copy sent for scanning. Placed in folderElectronically signed by Irma Acosta at 9 8:22 AM PDTTelephone Encounter - Abrahan Samaniego MD - 12/24/2018 8:07 AM PDTDoneElectron elyse signed by Abrahan Samaniego MD at 12/24/2018 8:07 AM PDTTelephone Encounter - Mick Wilson LPN - 12/23/2018 11:[address] Samaniego for completion (patient said needs URI) elephone Encoun ter - Irma Acosta - 12/23/2018 11:37 AM PDTPatient stopped by and dropped off a form for Dr. Samaniego to complete. She stated she spoke with Dr. Samaniego regarding this form. Ple ase call patient once complete. Placed in provider box. She does need this done ASAPElectron ically signed by Irma Acosta at 12/23/2018 11:41 AM PDTdocumented in this encounter Plan of [...] | | | | | | [place] [address] | | | | | | [phone] | | | | | | | | +--------+---------+ + + + | 09/03/ | Office | Endocrinology | Cheryl Zee MD | | | 2020 | Visit | | [address] [place] | | | | | | [address] [place] | | | | | | [address] | | | | | | | | +--------+---------+ + + + documented as of this encounter Visit Diagnoses Not on filedocumented in this encounter"
--- OUTSIDE RECORDS SUMMARY | ~2020-01-04 | XMS | Encounter Summary ---
Demographics + + + | Address | [address] | | | [place] [address] | + + + | Home Phone [...] Author | [facility] | | | and [...] [place], | | | | | [place] [address] | | + + + + + | Ryan Vogt | ECON | Unknown | | + + + + + | Rob Vogt | ECON | Unknown | | + + + + + Care Team Providers + +------+ + | Care Hydrogeology Professor Name | Role | Phone | + +------+ + | Abrahan Samaniego MD | PCP | | + +------+ + Reason for Visit + +--------+ + | Reason | Onset | Comments | | | Date | | + +--------+ + | Surgery Appointment | 06/01/ | | | | 2018 | | + +--------+ + Encounter Details +--------+ + + + + | Date | Type | Department | Care Team | Description | +--------+ + + + + | 06/01/ | Telephone | [facility] | Eugene Watkins | Surgery Appointment | | 2018 | | ORTHOPEDIC SURGERY | MD [address] | | | | | [address] [place] | [place] | | | | | [place] | [address] | | | | | [address] | | | | | | [phone] | | | +--------+ + + + [...] this encounter Miscellaneous Notes Telephone Encounter - Jessie Luevano RN - 06/01/2019 2:05 PM PSTSpoke with patient, advis ed she not take anymore aspirin. Patient expressed understanding. Dr. Watkins notified. El ectronically signed by Jessie Luevano RN at 06/01/2019 2:11 PM PSTTelephone Encounter - Alaina Hoover - 06/01/2019 1:31 PM PSTPatient called. She is scheduled for for surgery chelsi shari. She has not stopped all medications as advised. Told patient pre op nurse will be i nformed and I will ask nurse to call and advise. [phone] signed by Alaina Mcintyre at 06/01/2019 1:34 PM PSTdocumented i isela this encounter Plan of Treatment +--------+---------+ + + + | Date | Type | Specialty | Care Team | Description | +--------+---------+ + + + | 04/29/ | Office | Internal Medicine | Abrahan Samaniego MD | | | 2019 | Visit | | [address] [facility] | | | | | | [place] | | | | | | [address] | | | | | | | | +--------+---------+ + + + | 07/25/ | Office | Cardiology | Renetta, | | | 2020 | Visit | | [facility] [address] | | | | | | [place] | | | | | | [place] [address] | | | | | | [phone] | | | | | | | | +--------+---------+ + + + | 09/03/ | Office | Endocrinology | Cheryl Zee MD | | | 2020 | Visit | | [address] | | | | | | [address] [place] | | | | | | [phone] | | | | | | | | +--------+---------+ + + + documented as of this encounter Visit Diagnoses Not on filedocumented in this encounter"
--- OUTSIDE RECORDS SUMMARY | ~2020-01-04 | XMS | Encounter Summary ---
Demographics + + + | Address | [address] | | | [place] [address] | + + + | Home Phone | | + + + | Preferred Language | Unknown | + + + | Marital Status | | + + + | Hinduism Affiliation | 1027 | + + + | Race | Unknown | + + + | Ethnic Group | Unknown | + + + Author + + + | Author | [facility] | | | and [place] | + + + | Organization | [facility] | | [...] [place], | | | | | [place] [address] | | + + + + + | Ryan Vogt | ECON | Unknown | | + + + + + | Rob Vogt | ECON | Unknown | | + + + + + Care Team Providers + +------+ + | Care Calender Worker Helper Name | Role | Phone | + +------+ + | Abrahan Samaniego MD | PCP | | + +------+ + Encounter Details +--------+ + + + + | Date | Type | Department | Care Team | Description | +--------+ + + + + | 12/23/ | Orders Only | [facility] | Cheryl Zee MD | Other osteoporosis | | 2019 | | [place] | [address] [place] | without current | | | | ENDOCRINOLOGY [address] | [address] [place] | pathological | | | [address] [place] [address] | [address] | fracture (Primary | | | | [place] | | Dx) | | | | [address] | | | | | | [phone] | | | +--------+ + + + [...] | | | | | | [place] [address] | | | | | | [phone] | | | | | | | | +--------+---------+ + + + | 09/03/ | Office | Endocrinology | Cheryl Zee MD | | | 2021 | Visit | | [address] [place] | | | | | | [address] [place] | | | | | | [phone] | | | | | | | | +--------+---------+ + + + documented as of this encounter Results Vitamin D, Deficiency Screen (25-Hydroxy) (01/10/2019 8:04 AM PDT) + +-------+ + + + | Component | Value | Ref Range | Performed | Pathologist | | | | | At | Signature | + +-------+ + + + | Vitamin D, | 56 | 30 - 100 ng/mL | [facility] [...] [address] | [place] | [phone] | | [facility] | | [address] | | | - LABORATORY | | | | + + + + + documented in this encounter Visit Diagnoses + + | Diagnosis | + + | Other osteoporosis without current pathological fracture - Primary | + + documented in this encounter"
--- OUTSIDE RECORDS SUMMARY | ~2020-01-04 | XMS | Encounter Summary ---
Demographics + + + | Address | [address] | | | [place] [address] | + + + | Home Phone [...] Author | [facility] Martin [...] [place], | | | | | [place] [address] | | + + + + + | Ryan Vogt | ECON | Unknown | | + + + + + | Rob Vogt | ECON | Unknown | | + + + + + Care Team Providers + +------+ + | Care Anglesmith Helper Name | Role | Phone | + +------+ + | Julisa Boogie MD | PCP | | + +------+ + Reason for Visit + + + | Reason | Comments | + + + | Vision Changes | | + + + Encounter Details +--------+ + + + + | Date | Type | Department | Care Team | Description | +--------+ + + + + | 10/11/ | Emergency | [facility] | Emma Francois | Blurred vision, | | 2013 | | [facility] | MD Vivien [address] | right eye (Primary | | | | CENTER [address] | [facility], | Dx) | | | | [place] | [place] [address] | | | | | [address] | [phone] | | | | | [phone] | | | +--------+ + + + [...] + + + | Blood Pressure | 122/67 | 10/11/2013 11:15 PM | | | | | PDT | | + + + + + | Pulse | 69 | 10/11/2013 11:15 PM | | | | | PDT | | + + + + + | Temperature | 37.1 C (98.7 F) | 10/11/2013 8:57 PM | | | | | PDT | | + + + + + | Respiratory Rate | 14 | 10/11/2013 8:57 PM | | | | | PDT | | + + + + + | Oxygen Saturation | 96% | 10/11/2013 11:15 PM | | | | | PDT | | + + + + + | Inhaled Oxygen | - | - | | | Concentration | | | | + + + + + | Weight | 64.4 kg (142 lb) | 10/11/2013 8:57 PM | | | | | PDT | | + + + + + | Height | 160 cm (5' 3") | 10/11/2013 8:57 PM | | | | | PDT | | + + + + + | Body Mass Index | 25.15 | 10/11/2013 8:57 PM | | | | | PDT | | + + + + + documented in this encounter Discharge Instructions Instructions Emma Francois MD - 10/11/2013Call Dr. Knott's office first thing t omorrow after 8 am for a recheck with them tomorrow, to see Dr. Knott or her partners. Rest with head propped up on pillows tonight, avoid rapid head turning, rest mostly with ey es closed. Return here for any concerns. documented in this encounter Medications at Time [...] documented as of this encounter Procedure Notes [facility] - 02/19/2014 12:00 AM PDT 14 11:01 AM PD[facility]BASE SCAN [facility] - 11/07/2013 12:00 AM PDT ulisa Boogie MD - 10/13/2013 6:59 AM PDT [address] [address] CARDIOVASCULAR REPORT JULISA BOOGIE MD Patient: MONA VOGT Admitting: MR #: [id number] LOC: PT TYPE: Adm Date: 10/11/2013 : 1950 DATE: 10/11/2013 at 2208 PROCEDURE: Electrocardiogram Sinus arrhythmia. Normal axis. Normal intervals. Early transition versus lead placement . No obvious acute ischemic changes seen. JULISA BOOGIE MD Dictated by JULISA BOOGIE MD 10/13/2013 06:59:31 Transcribed on 10/13/2013 07:18:13 by shola job# [id number] Confirmation #: [id number] cc: JULISA BOOGIE MD doc umented in this encounter ED Notes Emma Francois MD - 10/11/2013 8:36 PM PDT Emergency Provider Note 10/11/2013 History CC: Vision Changes HPI: Mona Vogt is a 63 y.o. female who presents to the ED for evaluation of righ t eye visual disturbance. She indicates that today while she was driving, she thought she w as seeing a lightning bolt with her right eye, lateral field of vision. This was sudden ons et. She had not had any falls or hits to the head or eye area. She indicates that there wa s no lightning, but she noted that she could induce her symptoms by rapidly turning her head to the right. She has never had anything like this before. She denies a headache or diplo patrick. She denies any difficulty speaking or swallowing, no extremity weakness or numbness. 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 Adrenal insufficiency (HCC) 05/16/2012 PSH: Past Surgical History Procedure Date Bilateral tubal ligation. Left ganglion cyst removal 1970 Endometrial biopsy in 2006: benign. Skulll biopsy 09/28/2011 (Benign) Medications: Previous Medications ASPIRIN 81 MG EC TABLET Take 81 mg by mouth Daily. CALCIUM CARBONATE-VITAMIN D 600-125 MG-UNIT TABS Take by mouth Daily. CHOLECALCIFEROL (VITAMIN D-3) 1,000 UNITS TABLET Take 1,000 Units by mouth Daily. LEVOTHYROXINE (SYNTHROID, LEVOTHROID) 100 MCG TABLET Take 100 mcg by mouth every mornin g (before breakfast). LEVOXYL 100 MCG TABLET take 1 tablet by mouth once daily PREDNISONE (DELTASONE) 1 MG TABLET Take 1 by mouth daily with one 5 mg tab (total 6mg b y mouth daily ) PREDNISONE (DELTASONE) 5 MG TABLET Take 1 tablet by mouth daily with one 1 mg tab (tota l 6mg by mouth daily ) Allergies: She is allergic to succinylcholine chloride.. Social History: She reports that she has never smoked. She has never used smokeless tobacc o. She reports that she does not drink alcohol or use illicit drugs.. Review of Systems Constitutional: Negative for fever. HENT: Negative for hearing loss, congestion and neck pain. Eyes: Positive for visual disturbance. Negative for photophobia, pain and redness. Neurological: Negative for dizziness, facial asymmetry, weakness and numbness. Physical Exam Vital Signs: Temp: 37.1 C (98.7 F) Pulse: 70 Resp: 14 BP: 185/71 mmHg SpO2: 100 % Physical Exam Constitutional: She is oriented to person, place, and time. She appears well-developed and well-nourished. No distress. HENT: Head: Normocephalic and atraumatic. Mouth/Throat: Oropharynx is clear and moist. Eyes: Conjunctivae normal and EOM are normal. Pupils are equal, round, and reactive to ligh t. Right eye exhibits no chemosis and no discharge. Left eye exhibits no chemosis and no dis charge. Right conjunctiva is not injected. Right conjunctiva has no hemorrhage. Left conjunc tiva is not injected. Left conjunctiva has no hemorrhage. Right eye exhibits no nystagmus. L eft eye exhibits no nystagmus. Fundoscopic exam: The right eye shows no hemorrhage and no papilledema. The left eye shows no hemorrhage and no papilledema. By fundoscopic exam, there was no overt retinal detachment, no abnormality of vessels right compared with left. Neck: Normal range of motion. Neck supple. Cardiovascular: Normal rate and regular rhythm. No murmur heard. Pulmonary/Chest: Effort normal and breath sounds normal. Abdominal: Soft. Bowel sounds are normal. Lymphadenopathy: She has no cervical adenopathy. Neurological: She is alert and oriented to person, place, and time. No cranial nerve defici t or sensory deficit. She exhibits normal muscle tone. Coordination and gait normal. Visual garcía intact to confrontation, no pronator drift, normal finger to nose testin g. ED Course and Medical Decision Making Mona Vogt presented to the Emergency Department for evaluation, and she was tria ged to room ED05. I reviewed the nursing notes, and she was evaluated by me. I talked with the patient about her reassuring exam and urgent follow up with ophthalmology for a more extensive dilated exam. I think that can take place safely as an outpatient. I didn't see an overt retinal detachment or evidence of emboli. She may have a vitreous proc ess. She is comfortable with that. She will be advised to rest with her head elevated, eye rest, avoid rapid turning of her head or intensive activity. 1. Blurred vision, right eye Emma Francois MD 12/24/13 1732 docu mented in this encounter Miscellaneous Notes Plan of Care - [facility] - 10/12/2013 12:00 AM PDT lan of Care - [facility] - 10/12/2013 12:00 AM PDTElect ronically signed by Toro Morris at 10/12/2013 5:21 PM PDTED Triage Notes - Tru Guzman RN - 10/11/2013 8:53 PM PDTC/o visual problems on right side, states as she was driving she seen what she thought was a lightning bolt on the right side ( no lightning) states she can repeat sensation just by turning her head documented in this encounter Plan of Treatment +--------+---------+ + + + | Date | Type | Specialty | Care Team | Description | +--------+---------+ + + + | 04/29/ | Office | Internal Medicine | Julisa Boogie MD | | | 2019 | Visit | | [address] [facility] | | | | | | [place] | | | | | | [id number] | | | | | | | | +--------+---------+ + + + | 07/25/ | Office | Cardiology | Renetta, | | | 2020 | Visit | | [facility] [address] | | | | | | [place], | | | | | | [place] [address] | | | | | | [phone] | | | | | | | | +--------+---------+ + + + | 09/03/ | Office | Endocrinology | Cheryl Zee MD | | | 2020 | Visit | | [address] | | | | | | [address] [place] | | | | | | [phone] | | | | | | | | +--------+---------+ + + + documented as of this encounter Procedures + +--------+ + + + | Procedure Name | Priori | Date/Time | Associated Diagnosis | Comments | | | ty | | | | + +--------+ + + + | CT HEAD WO CONTRAST | STAT | 10/11/2013 | | Results for this | | | | 10:48 PM | | procedure are in the | | | | PDT | | results section. | + +--------+ + + + | XR CHEST AP PORTABLE | STAT | 10/11/2013 | | Results for this | | | | 10:21 PM | | procedure are in the | | | | PDT | | results section. | + +--------+ + + + | SEDIMENTATION RATE | STAT | 10/11/2013 | | Results for this | | | | 10:18 PM | | procedure are in the | | | | PDT | | results section. | + +--------+ + + + | PROTIME INR | STAT | 10/11/2013 | | Results for this | | | | 10:18 PM | | procedure are in the | | | | PDT | | results section. | + +--------+ + + + | CBC WITH | STAT | 10/11/2013 | | Results for this | | DIFFERENTIAL | | 10:18 PM | | procedure are in the | | | | PDT | | results section. | + +--------+ + + + | COMPREHENSIVE | STAT | 10/11/2013 | | Results for this | | METABOLIC PANEL | | 10:18 PM | | procedure are in the | | | | PDT | | results section. | + +--------+ + + + documented in this encounter Results CT Head wo Contrast (10/11/2013 10:48 PM PDT) + + | Specimen | + + | | + + + + + | Narrative | Performed At | + + + | UNENHANCED HEAD CT 10/11/2013 10:47 PM CLINICAL HISTORY: CVA , | MISCELANIOUS | | RIGHT-SIDED VISUAL CHANGES COMPARISON: Brain MRI 10/25/2012 and | LAB | | 07/21/2011, head CT 05/19/2011, bone scan 05/07/2011 TECHNIQUE: | | | Axial unenhanced images are performed through the head, along with | | | coronal and sagittal reformations. FINDINGS: The brain | | | parenchyma, ventricles, brainstem and cerebellum are unremarkable. | | | There is no mass effect, evidence of intracranial hemorrhage, or | | | extra-axial fluid collection/mass. Changes of craniectomy are now | | | evident in the right frontal calvarium at the level of the previously | | | described osteosclerosis. Hyperattenuating material containing | | | small loculi of very low attenuation within the craniectomy defect | | | likely reflects graft material. Mild residual sclerosis is noted | | | within the calvarium along the inferior margin of the craniectomy | | | site, and is similar in distribution. Separate, localized sclerosis | | | further inferior and toward the midline in the right frontal | | | calvarium also is stable. No new lytic or blastic bone lesion is | | | evident. Imaged orbits and soft tissue structures are unremarkable. | | | Imaged paranasal sinuses, middle ear cavities and mastoid air | | | cells are well aerated. IMPRESSION - 1. NO EVIDENCE OF | | | INTRACRANIAL DISEASE. 2. INTERVAL RIGHT FRONTAL CRANIECTOMY AT | | | THE SITE OF PREVIOUSLY DESCRIBED OSTEOSCLEROSIS, WITH STABLE, MILD | | | RESIDUAL SCLEROSIS INFERIOR TO THE OPERATIVE SITE AND FURTHER | | | INFERIOR AND CLOSER TO MIDLINE IN THE RIGHT FRONTAL CALVARIUM. | | | Preliminary results of this study were reported to the ER staff by the | | | [facility] radiologist on 10/11/2013 at 2311 hours. Dictated and | | | Signed by: Gonzalo Barragan MD Electronically signed: 10/12/2013 7:28 AM | | + + + + + | Procedure Note | + + | Vishnu, Rad Results In - 10/12/2013 7:31 AM PDT UNENHANCED HEAD CT 10/11/2013 10:47 PM | | | | CLINICAL HISTORY: CVA , RIGHT-SIDED VISUAL CHANGES | | | | COMPARISON: Brain MRI 10/25/2012 and 07/21/2011, head CT 05/19/2011, bone scan | | 05/07/2011 | | | | TECHNIQUE: Axial unenhanced images are performed through the head, along with | | coronal and sagittal reformations. | | | | FINDINGS: The brain parenchyma, ventricles, brainstem and cerebellum are | | unremarkable. There is no mass effect, evidence of intracranial hemorrhage, or | | extra-axial fluid collection/mass. Changes of craniectomy are now evident in | | the right frontal calvarium at the level of the previously described | | osteosclerosis. Hyperattenuating material containing small loculi of very low | | attenuation within the craniectomy defect likely reflects graft material. Mild | | residual sclerosis is noted within the calvarium along the inferior margin of | | the craniectomy site, and is similar in distribution. Separate, localized | | sclerosis further inferior and toward the midline in the right frontal calvarium | | also is stable. No new lytic or blastic bone lesion is evident. Imaged orbits | | and soft tissue structures are unremarkable. Imaged paranasal sinuses, middle | | ear cavities and mastoid air cells are well aerated. | | | | IMPRESSION - | | 1. NO EVIDENCE OF INTRACRANIAL DISEASE. | | | | 2. INTERVAL RIGHT FRONTAL CRANIECTOMY AT THE SITE OF PREVIOUSLY DESCRIBED | | OSTEOSCLEROSIS, WITH STABLE, MILD RESIDUAL SCLEROSIS INFERIOR TO THE OPERATIVE | | SITE AND FURTHER INFERIOR AND CLOSER TO MIDLINE IN THE RIGHT FRONTAL CALVARIUM. | | | | Preliminary results of this study were reported to the ER staff by the [facility] | | radiologist on 10/11/2013 at 2311 hours. | | | | Dictated and Signed by: Gonzalo Barragan MD | | Electronically signed: 10/12/2013 7:28 AM | + + + +---------+ + + | Performing | Address | City/State/Zipcode | Phone Number | | Organization | | | | + +---------+ + + | [facility] | | | [phone] | + +---------+ + + | [facility] | | | [phone] | + +---------+ + + XR Chest AP Portable (10/11/2013 10:21 PM PDT) + + | Specimen | + + | | + + + + + | Narrative | Performed At | + + + | PORTABLE CHEST X-RAY: 10/11/2013 10:21 PM CLINICAL HISTORY:CVA | MISCELANIOUS | | COMPARISON: 08/01/2007 FINDINGS:Heart size is normal. Aorta and | LAB | | pulmonary vasculature are within normal limits. There are no areas of | | | abnormal lung density. There is no effusion or pneumothorax. No bony | | | abnormalities are seen. IMPRESSION -No acute cardiopulmonary | | | abnormalities. Dictated and Signed by: Artur Shahid MD | | | Electronically signed: 10/12/2013 8:59 AM | | + + + + + | Procedure Note | + + | Vishnu, Rad Results In - 10/12/2013 9:02 AM PDT PORTABLE CHEST X-RAY: 10/11/2013 10:21 PM | | | | CLINICAL HISTORY:CVA | | | | COMPARISON: 08/01/2007 | | | | FINDINGS:Heart size is normal. Aorta and pulmonary vasculature are within normal | | limits. There are no areas of abnormal lung density. There is no effusion or | | pneumothorax. No bony abnormalities are seen. | | | | IMPRESSION -No acute cardiopulmonary abnormalities. | | | | Dictated and Signed by: Artur Shahid MD | | Electronically signed: 10/12/2013 8:59 AM | + + + +---------+ + + | Performing | Address | City/State/Zipcode | Phone Number | | Organization | | | | + +---------+ + + | [facility] | | | [phone] | + +---------+ + + | [facility] | | | [phone] | + +---------+ + + Sedimentation Rate (10/11/2013 10:18 PM PDT) + +-------+ + + + | Component | Value | Ref Range | Performed | Pathologist | | | | | At | Signature | + +-------+ + + + | Erythrocyte | 4 | <30 mm/hr | [facility] | | | | | | [facility] | | | [facility] | | | MEDICAL | | | on Rate | | | CENTER - | | [...] [address] | [place] | [phone] | | [facility] | | [address] | | | - LABORATORY | | | | + + + + + | [facility] | [address] | [place] | | | [facility] | | [address] | | | - LABORATORY | | | | + + + + + Protime INR (10/11/2013 10:18 PM PDT) + +-------+ + + + | Component | Value | Ref Range | Performed | Pathologist | | | | | At | Signature | + +-------+ + + + | Prothrombin | 12.9 | 11.3 - 13.9 | [facility] | | | Time | | seconds | [facility] | | | | | | MEDICAL | | | | | | CENTER - | | | | | | LABORATORY | | + +-------+ + + + | INR | 0.98 | 0.90 - 1.10 | [facility] | | | | | [...] + | [facility] | [address] | [place], [place] | [phone] | | [facility] | | [address] | | | - LABORATORY | | | | + + + + + | [facility] | [address] | [place], [place] | | | [facility] | | [address], [facility] | | | - LABORATORY | | | | + + + + + Comprehensive Metabolic Panel (10/11/2013 10:18 PM PDT) + + + + + [...] (H) | 7 - 18 mg/dL | [facility] | | | | | | [facility] | | | | | | MEDICAL | | | | | | CENTER - | | | | | | LABORATORY | | + + + + + + | Creatinine | 0.98 | 0.60 - 1.30 | [facility] | | | | | mg/dL | [facility] | | | | | | MEDICAL | | | | | | CENTER - | | | | | | LABORATORY | | + + + + + + | eGFR, | 57 (L)Comment: | >=60 | [facility] | | | non- | GLOMERULAR FILTRATION | mL/min/1.73m2 | [facility] | | | [place] | RATE,ESTIMATED | | MEDICAL | | | | mL/min/1.94q2Jwvz than | | CENTER - | | [...] 3.7 | 3.2 - 5.0 g/dL | [facility] | | | | | | ST. [...] + + | Total | 6.1 | 6.0 - 7.8 g/dL | [facility] | | | Protein | | | [facility] | | | | | | MEDICAL | | | | | | CENTER - | | | | | | LABORATORY | | + + + + + + | AST | 16 | 10 - 42 U/L | [facility] | | | | | | [facility] | | | | | | MEDICAL | | | | | | CENTER - | | | | | | LABORATORY | | + + + + + + | ALT | 17 | 6 - 45 U/L | [facility] | | | | | | [facility] | | | | | | MEDICAL | | | | | | CENTER - | | | | | | LABORATORY | | + + + + + + | Alkaline | 63 | 40 - 110 U/L | [facility] | | | Phosphatase | | | [facility] | | | | | | MEDICAL | | | | | | CENTER - | | | | | | LABORATORY | | + + + + + + | Globulin | 2.4 | g/dL | [facility] | | | | | | [facility] | | | | | | MEDICAL | | | | | | CENTER - | | | | | | LABORATORY | | + + + + + + | Albumin/Rachel | 1.5 | | [facility] | | | bulin Ratio | | | [facility] | | | | | | MEDICAL | | | | | | CENTER - | | | | | | LABORATORY | | + + + + + + | BUN/Creatin | 20.4 | | [facility] | | | ine [...] + | [facility] | [address] | [place] | [phone] | | [facility] | | [address] | | | - LABORATORY | | | | + + + + + | [facility] | [address] | [place], [place] | | | [facility] | | [address], [facility] | | | - LABORATORY | | | | + + + + + CBC with Differential (10/11/2013 10:18 PM PDT) + + + + + [...] + + + | Red Blood | 4.77 | 3.70 - 5.20 | [facility] | [...] + + + + | Hematocrit | 42.2 | 34.0 - 47.0 % | [facility] | | | | | | [facility] | | | | | | MEDICAL | | | | | | CENTER - | | | | | | LABORATORY | | + + + + + + | MCV | 88.4 [...] + + + + | RDW-CV | 13.5 | <15.0 % | [facility] | | | | | | [facility] | | | | | | MEDICAL | | | | | | CENTER - | | | | | | LABORATORY | | + + + + + + | Platelet | 238 | 140 - 440 K/uL | [facility] | | | Count | | | [facility] | | | | | | MEDICAL | | | | | | CENTER - | | | | | | LABORATORY | | + + + + + + | MPV | 8.3 | fL | [facility] | | | | | | [facility] | | | | | | MEDICAL | | | | | | CENTER - | | | | | | LABORATORY | | + + + + + + | % | 44.9 (L) | 45.0 - 82.0 % | [facility] | | | Neutrophils | | | [facility] | | | | | | MEDICAL | | | | | | CENTER - | | | | | | LABORATORY | | + + + + + + | % | 40.2 | 20.0 - 45.0 % | [facility] | | | Lymphocytes | | | [facility] | | | | | | MEDICAL | | | | | | CENTER - | | | | | | LABORATORY | | + + + + + + | % Monocytes | 12.1 (H) | 4.0 - 12.0 % | [facility] | | | | | | [facility] | | | | | | MEDICAL | | | | | | CENTER - | | | | | | LABORATORY | | + + + + + + | % | 1.5 | 0.0 - 5.0 % | [facility] | | | Eosinophils | | | [facility] | | | | | | MEDICAL | | | | | | CENTER - | | | | | | LABORATORY | | + + + + + + | % Basophils | 1.3 (H) | 0.0 - 1.0 % | [facility] | | | | | | [facility] | | | | | | MEDICAL | | | | | | CENTER - | | | | | | LABORATORY | | + + + + + + | Absolute | 2.80 | 1.80 - 8.50 | [facility] | | | Neutrophils | | K/uL | [facility] | | | | | | MEDICAL | | | | | | CENTER - | | | | | | LABORATORY | | + + + + + + | Absolute | 2.50 | 0.60 - 3.20 | [facility] | | | Lymphocytes | | K/uL | [facility] | | | | | | MEDICAL | | | | | | CENTER - | | | | | | LABORATORY | | + + + + + + | Absolute | 0.80 | 0.00 - 1.00 | [facility] | [...] | Absolute | 0.10 | 0.00 - 0.10 | [facility] | [...] [address] | [place] | [phone] | | [facility] | | [address] | | | - LABORATORY | | | | + + + + + | [facility] | [address] | [place] | | | [facility] | | [address], [facility] | | | - LABORATORY | | | | + + + + + documented in this encounter Visit Diagnoses + + | Diagnosis | + + | Blurred vision, right eye - Primary Other specified visual disturbances | + + documented in this encounter
--- NOTE | 2020-01-04 23:17 | NUR ---
admit via [facility] in stretcher at [id number]- lateral transfer from [facility] in [place]. Pt alert and oriented. on room air, Dr Raines in room at this time examining pt
--- NOTE | 2020-01-04 23:33 | NUR ---
VERBAL REPORT RECEIVED FROM [facility] RN OPAL AT RN STATION. QUESTIONS ANSWERED, PT AWAKE AND RESTING IN BED. SEPTEMBER IN ROOM COLLECTING VS. CALL LIGHT IN REACH.
--- NOTE | 2020-01-05 00:05 | NUR ---
ASSESSMENT COMPLETE, SCHEDULED MEDS GIVEN (SEE EMAR). PT AWAKE AND ORIENTED TO ROOM, CALL LIGHT IN REACH. PT DENIES PAIN AND NAUSEA, RECENTLY ATE SANDWHICH. REPORTS SOME ABDOMINAL DISTENTION. A/OX4, NO ADDITIONAL NEEDS. PT VERBALIZES NEED TO CALL WHEN READY TO VOID.
--- NOTE | 2020-01-05 00:15 | NUR ---
coop with admit assessment, alert and oriented, ivf started, pt ate a sandwich pack, 100%, tolerated it well, tolerating fluids well too
--- NOTE | 2020-01-05 01:03 | NUR ---
URINE SAMPLE COLLECTED BY JASPREET SEPTEMBER AND SENT TO LAB FOR CLEAN CATCH UA.
--- NOTE | 2020-01-05 02:21 | NUR ---
SCHEDULED STERIOD GIVEN (SEE EMAR), IV SITE WNL. PT DENIES NEEDS AT THIS TIME. CALL LIGHT IN REACH.
--- NOTE | 2020-01-05 04:10 | NUR ---
PT RESTING IN BED WITH EYES CLOSED, RR EVEN AND UNLABORED. IV FLUIDS INFUSING, CALL LIGHT IN REACH.
--- NOTE | 2020-01-05 05:15 | NUR ---
VS AND I&O'S DONE. SCHEDULED THYROID MED GIVEN (SEE EMAR). IV FLUIDS INFUSING AT 125MLS/HR, SITE WNL. ASSESSMENT COMPLETE, NO NEW CHANGES OR CONCERNS. DENIES PAIN AND NAUSEA. CALL LIGHT IN REACH.
--- NOTE | 2020-01-05 10:53 | NUR ---
ASSESSMENT COMPLETED. DENIES PAIN OR DISCOMFORT AT THIS TIME. VITAL SIGNS OBTAINED. CALL LIGHT IN REACH, BED RAILS UP X2. DENIES OTHER NEEDS.
[2020-01-05] MEDS ORDERED: PREDNISONE10 MG PO (11:11)
[2020-01-05] MEDS ORDERED: SYNTHROID100 MCG PO (11:20)
[2020-01-05] MEDS ORDERED: OMNITROPE5 MG/1.5 M SUB-Q (11:20)
[2020-01-05] MEDS ORDERED: PREDNISONE5 MG PO (11:20)
[2020-01-05] MEDS ORDERED: PREDNISONE1 MG PO (11:20)
[2020-01-05] MEDS ORDERED: LIPITOR20 MG PO (11:21)
[2020-01-05] MEDS ORDERED: NORVASC2.5 MG PO (11:21)
[2020-01-05] MEDS ORDERED: POTASSIUM CHLO10 ME2 PO (11:21)
[2020-01-05] MEDS ORDERED: VITAMIN D325 MC2 PO (11:33)
[2020-01-05] MEDS ORDERED: MULTI VITAMIN1 EACH PO (11:33)
[2020-01-05] MEDS ORDERED: ASPIR 8181 MG PO (11:33)
--- NOTE | 2020-01-05 11:36 | NUR ---
MED REC COMPLETE
== END 2020-01-05 12:53 | disposition home or self-care (01) ==
LOC: MS 23:12
PROVIDERS: ADMIT Student in an Organized Health Care Education/Training Program
DX: E27.40 Unspecified adrenocortical insufficiency (principal); I10 Essential (primary) hypertension; E03.9 Hypothyroidism, unspecified; E23.0 Hypopituitarism; E78.5 Hyperlipidemia, unspecified; Z79.82 Long term (current) use of aspirin; Z79.52 Long term (current) use of systemic steroids
CPT/HCPCS: 36415; 80048; 81001; 83735; 85025; 96361; 96374; 96376; 97162; G0378; J1720; J7030; J7512